=== PATIENT | female | born 1945 | race Caucasian/White ===

== ENCOUNTER 2018-01-31 02:23 | Outpatient (CLI) | payer OTHER, SELFPAY ==
[2018-01-31 15:01] LABS: Hemoglobin A1C 6.4 % (4.5-6.2)
== END 2018-01-31 02:43 ==
PROVIDERS: PCP Family Medicine; Visit Provider Family Medicine
DX: E11.9 Type 2 diabetes mellitus without complications (principal)
CPT/HCPCS: 36415; 83036

== ENCOUNTER 2018-02-28 09:55 | Outpatient (CLI) | payer OTHER, SELFPAY ==
--- NOTE | 2018-02-28 13:02 | DI.RAD_ITS ---
SYMPTOMS/DIAGNOSIS: LT KNEE PAIN, M25.562 LEFT KNEE: Three views were obtained. There is mild hypertrophic spurring of the bones of the knee. No other significant bony abnormality is seen.
== END 2018-02-28 10:15 ==
PROVIDERS: PCP Family Medicine; Visit Provider Family Medicine
DX: M25.562 Pain in left knee (principal); M76.892 Other specified enthesopathies of left lower limb, excluding foot
CPT/HCPCS: 73562

== ENCOUNTER 2018-05-22 10:35 | Outpatient (REF) | payer OTHER, SELFPAY | END 2018-05-22 10:55 | LOC: LBN 10:35 | PROVIDERS: PCP Family Medicine; Visit Provider Urology | DX: R30.9 Painful micturition, unspecified (principal) | CPT/HCPCS: 87077; 87086; 87186 ==

== ENCOUNTER 2018-07-08 09:01 | Outpatient (CLI) | payer OTHER, SELFPAY ==
[2018-07-08 11:15] LABS: Hemoglobin A1C 5.6 % (4.5-6.2)
[2018-07-09 10:26] LABS: Hepatitis C Ab w Rflx HCV PCR Negative (NEGAT)
== END 2018-07-08 09:21 ==
PROVIDERS: PCP Family Medicine; Visit Provider Family Medicine
DX: E11.9 Type 2 diabetes mellitus without complications (principal); Z11.59 Encounter for screening for other viral diseases
CPT/HCPCS: 36415; 86803; 83036

== ENCOUNTER 2018-07-11 10:10 | Outpatient (CLI) | payer OTHER, SELFPAY ==
--- NOTE | 2018-07-11 15:55 | DI.MAMMO_ITS ---
SYMPTOM/DIAGNOSIS: SCREENING, Z12.31 MAMMOGRAMS: Mammograms were interpreted according to the usual protocol including computer analysis with CAD system, tomosynthesis and C view imaging. Comparison with prior examinations. Breast density B. No suspicious masses or microcalcifications are seen. There is no definite evidence of malignancy. IMPRESSION: Negative mammogram. Routine screening is recommended. Category I. MQSA ASSESSMENT OF FINDINGS: Negative. Category 1. Patient will receive a letter notifying them of these results. BI-RADS category B. There are scattered areas of fibroglandular density.
== END 2018-07-11 10:30 ==
PROVIDERS: PCP Family Medicine; Visit Provider Family Medicine
DX: Z12.31 Encounter for screening mammogram for malignant neoplasm of breast (principal)
CPT/HCPCS: 77063; 77067

== ENCOUNTER 2018-07-22 10:54 | Outpatient (CLI) | payer OTHER, SELFPAY ==
[2018-07-22 13:17] LABS: ALT 43 U/L (12-78); AST 23 U/L (15-37); Alkaline Phosphatase 111 U/L (46-116); Anion Gap 9.1 mmol/L (3-11); BUN 19 mg/dL (7-18); Bilirubin, Total 0.3 mg/dL (0.2-1.0); CO2 28.9 mmol/L (21.0-32.0); CREATININE 0.95 mg/dL (0.55-1.02); Calcium 9.4 mg/dL (8.5-10.1); Chloride 103 mmol/L (98-107); Glucose 134 mg/dL (70-100); Potassium 4.4 mmol/L (3.5-5.1); Sodium 141 mmol/L (136-145); Total Protein 7.5 g/dL (6.4-8.2)
== END 2018-07-22 11:14 ==
PROVIDERS: PCP Family Medicine; Visit Provider Family Medicine
DX: E78.00 Pure hypercholesterolemia, unspecified (principal)
CPT/HCPCS: 36415; 80053

== ENCOUNTER 2020-02-03 04:26 | Outpatient (CLI) | payer OTHER, SELFPAY ==
[2020-02-03 11:46] LABS: Hemoglobin A1C 7.2 % (<5.7)
[2020-02-03 12:35] LABS: ALT 48 U/L (14-59); AST 18 U/L (15-37); Albumin 3.8 g/dL (3.4-5.0); Alkaline Phosphatase 108 U/L (46-116); BUN 17 mg/dL (7-18); Bilirubin, Total 0.3 mg/dL (0.2-1.0); CREATININE 0.72 mg/dL (0.55-1.02); Calcium 8.6 mg/dL (8.5-10.1); Calculated LDL 102 mg/dL (<100); Chloride 105 mmol/L (98-107); Cholesterol 187 mg/dL (<200); Glucose 170 mg/dL (74-106); HDL Cholesterol 52 mg/dL (40-60); Potassium 4.2 mmol/L (3.5-5.1); Sodium 140 mmol/L (136-145); Total Protein 7.1 g/dL (6.4-8.2); Triglyceride 166 mg/dL (<150)
== END 2020-02-03 04:46 ==
PROVIDERS: PCP Family Medicine; Visit Provider Family Medicine
DX: E78.00 Pure hypercholesterolemia, unspecified (principal); E11.9 Type 2 diabetes mellitus without complications
CPT/HCPCS: 36415; 80053; 80061; 83036

== ENCOUNTER 2020-02-16 00:40 | Outpatient (CLI) | payer OTHER, SELFPAY ==
--- NOTE | 2020-02-16 07:21 | DI.RAD_ITS ---
EXAM: XR HIP LT COMPLETE AP PELVIS CLINICAL HISTORY: left hip pain,m25.552. TECHNIQUE: 2D digital imaging was performed. COMPARISON: No exams were available for comparison FINDINGS: BONES: No acute fracture is present. No bony destructive lesion is seen. JOINTS: No dislocation present. There is mild joint space narrowing of the hips bilaterally. Degener ative changes are seen in the lower lumbar spine. SOFT TISSUE: Normal. IMPRESSION: Mild narrowing of the joint spaces of the hips bilaterally. DATA REPOSITORY: RADIATION DOSE DELIVERED:
== END 2020-02-16 01:00 ==
PROVIDERS: PCP Family Medicine; Visit Provider Family Medicine
DX: M25.552 Pain in left hip (principal)
CPT/HCPCS: 73502

== ENCOUNTER 2020-03-11 00:30 | Outpatient (CLI) | payer OTHER, SELFPAY ==
--- NOTE | 2020-03-11 06:30 | DI.DEXA_ITS ---
EXAM: XR DEXA BONE DENSITY W/WO LO CLINICAL HISTORY: osteoporosis,M81.0 TECHNIQUE: COMPARISON: No exams were available for comparison FINDINGS: Lateral Spine Image: Unremarkable. No compression deformities identified. Left hip: Total T-Score: 0.4 Total Z-Score: 2.2 T- and Z-scores: Within normal limits. Lumbar Spine: Total T-Score: 0.2 Total Z-Score: 2.6 T- and Z-scores: Within normal limits. IMPRESSION: No evidence of osteoporosis.
--- NOTE | 2020-03-11 06:30 | DI.MAMMO_ITS ---
EXAM: MG MAMMO SCREENING CLINICAL HISTORY: screening,Z12.39 TECHNIQUE: Bilateral full field digital CC and MLO mammographic images were obtained with 3D tomosyn thesis and utilizing computer aided detection (CAD). COMPARISON: Available for comparison. FINDINGS: Masses/Architectural Distortion: None seen. Microcalcifications: No suspicious pleomorphic-type are seen. Skin Thickening/Nipple Retraction: None. IMPRESSION: 1. No significant interval change with no specific features of malignancy noted. 2. Unless there is more urgent need, screening mammography is recommended, as per [employer] guidelines. BI-RADS Category 1 - Negative Breast Density - Category B - Scattered areas of fibroglandular density A negative radiographic report should not delay biopsy if a dominant or clinically suspicious mass is present. Up to ten percent of cancers are not identified on mammography. A negative report may reinforce clinical impression. Adenosis and dense breasts may obscure an underlying neoplasm. False positive reports average 6 to 10%. Patient will receive a letter notifying them of these results.
== END 2020-03-11 00:50 ==
PROVIDERS: PCP Family Medicine; Visit Provider Family Medicine
DX: Z12.31 Encounter for screening mammogram for malignant neoplasm of breast (principal); M81.0 Age-related osteoporosis without current pathological fracture
CPT/HCPCS: 77063; 77067; 77080

== ENCOUNTER 2020-06-22 13:27 | Outpatient (REF) | payer OTHER, SELFPAY ==
[2020-06-22 14:12] LABS: Bilirubin Negative (Negative); Blood Negative (Negative); Clarity Sl Cloudy (Clear); Glucose 100 mg/dL (Negative); Ketones Negative (Negative); Leukocyte Esterase Negative (Negative); Nitrite Negative (Negative); Specific Gravity 1.025 (1.005-1.025); Urobilinogen 0.2 EU/dL (Up TO 0.2); pH 5.5 (5-8)
== END 2020-06-22 13:28 | disposition home or self-care (01) ==
LOC: LBN 13:27
PROVIDERS: PCP Family Medicine; Visit Provider Nurse Practitioner Gerontology
DX: R82.998 Other abnormal findings in urine (principal)
CPT/HCPCS: 81003; 87086

== ENCOUNTER 2020-12-27 03:08 | Outpatient (CLI) | payer OTHER, SELFPAY ==
[2020-12-27 12:52] LABS: COMMENT (LAB VIEW ONLY) 83.13 mg/dL; Microalb ug/mg Crea 12.8 ug/mg Cr
== END 2020-12-27 03:09 | disposition home or self-care (01) ==
LOC: LBO 03:08
PROVIDERS: PCP Family Medicine; Visit Provider Family Medicine
DX: E11.9 Type 2 diabetes mellitus without complications (principal); M54.2 Cervicalgia
CPT/HCPCS: 36415; 82043; 82570; 83036

== ENCOUNTER 2021-02-15 15:58 | Outpatient (REF) | payer OTHER, SELFPAY ==
[2021-02-15 13:26] LABS: Bilirubin Negative (Negative); Blood Moderate (Negative); Clarity Clear (Clear); Glucose 500 mg/dL (Negative); Ketones Negative (Negative); Leukocyte Esterase Negative (Negative); Nitrite Negative (Negative); Specific Gravity >= 1.030 (1.005-1.025); Urobilinogen 0.2 EU/dL (Up TO 0.2); pH 6.5 (5-8)
[2021-02-15 13:40] LABS: Bacteria Rare HPF (Negative); Epithelial Cells Rare HPF (Negative); WBC 0-2 HPF (0-5)
[2021-02-15 13:41] LABS: C & S Indicated? No; Casts Negative LPF (Negative); Crystals Negative HPF (Negative); Mucus Negative (Negative)
== END 2021-02-15 15:59 | disposition home or self-care (01) ==
LOC: LBN 15:58
PROVIDERS: PCP Family Medicine; Visit Provider Nurse Practitioner Gerontology
DX: R31.9 Hematuria, unspecified (principal)
CPT/HCPCS: 81003; 81015

== ENCOUNTER 2021-03-07 01:06 | Outpatient (CLI) | payer OTHER, SELFPAY ==
--- NOTE | 2021-03-07 07:17 | DI.CT_ITS ---
Exam(s) CT ABDOMEN PELVIS WO/W EXAM: CT ABDOMEN PELVIS WO/W CLINICAL HISTORY: microhemATURIA,R31.9. TECHNIQUE: Imaging Protocol: Axial computed tomography images with coronal and sagittal reformatted images were created and reviewed CONTRAST MATERIAL: Intravenous: Omnipaque 100cc Oral: None COMPARISON: No exams were available for comparison FINDINGS: VISUALIZED LUNG BASES: There is some infiltrate in the lung bases and there is also a pleural based n odular density in the posterior basal segment of the right lower lobe which measures 7 x 5 millimeter s. Requires follow-up.. ABDOMEN: There is no ascites. LIVER: The liver is hypodense implying steatosis. There are no discrete focal hepatic lesions identi fied. GALLBLADDER/BILIARY: No obvious gallbladder pathology. CBD is not dilated. PANCREAS: No evidence of pancreatic mass nor dilatation of the pancreatic duct. SPLEEN: Spleen is not enlarged. No obvious intrasplenic lesions. Splenic and portal veins are paten t. ADRENALS: There are no significant adrenal masses. KIDNEYS:There is a 2.2 x 1.6 cm cyst in the inferior pole region of the right kidney. No solid renal masses. No calculi nor hydronephrosis.. There is a solitary nondilated ureter on each side without filling defects within the renal pelves and infundibulum I on either side. The right ureter is opac ified throughout its course. Left ureter appears unremarkable in the abdomen. The left ureter is op acified into the pelvis to just beyond the level of the iliac vessels but the lower few centimeters i ncluding the UVJ are not opacified. There is no abnormal calculus nor mass in the urinary bladder. There are no bladder diverticuli evid ent. No bladder wall trabeculation. ABDOMINAL AORTA: Abdominal aorta is not enlarged. LYMPH NODES:There is no retroperitoneal nor paraaortic adenopathy. ABDOMINAL WALL: No evidence of significant anterior abdominal wall nor inguinal hernia. GI: There is no evidence of bowel obstruction, free air, nor abscess. PELVIS: GI: No evidence of appendicitis.There is sigmoid diverticulosis. There is no obvious acute diverticu litis. LYMPH NODES: There is no intrapelvic nor inguinal adenopathy. REPRODUCTIVE: Uterus is surgically absent. There are no abnormal adnexal masses URINARY BLADDER: No calculi nor obvious masses evident OSSEOUS: No significant osseous lesions. Multilevel chronic degenerative disc space narrowing in the lumbar spine, with relative sparing of L5 -S1 which exhibits normal disc height IMPRESSION: 1. There is a solitary benign cyst in the lower pole region of the right kidney which measures 22 x 1 6 by 20 millimeters. There are no solid renal masses. No renal calculi nor hydronephrosis. There i s a solitary ureter on each side without dilatation. No obvious abnormality in the urinary bladder. 2. Sigmoid diverticulosis but no evidence of acute diverticulitis. No appendicitis. 3. Hepatic steatosis noted. 4. Mild infiltrate in lung bases. No pleural effusions. RADIATION DOSE DELIVERED: 2,766.31mGy.cm Total DLP DATA REPOSITORY: All CT scans at this facility are submitted to the National Radiology Data Registry (NRDR) Dose Index Registry (DIR) with the [employer] (A[employer]). RADIATION OPTIMIZATION: All CT scans at this facility use at least one of these dose optimization te chniques: automated exposure control; mA and/or kV adjustment per patient size (includes targeted exa ms where dose is matched to clinical indication); or iterative reconstruction.
[2021-03-07 12:22] LABS: CREATININE 0.7 mg/dL (0.55-1.02)
[2021-03-07] MEDS: Omnipaque 350 MG/ML 100 ML BTL IV (12:47)
== END 2021-03-07 01:26 ==
PROVIDERS: PCP Family Medicine; Visit Provider Nurse Practitioner Gerontology
DX: R31.9 Hematuria, unspecified (principal); N28.1 Cyst of kidney, acquired; K57.30 Diverticulosis of large intestine without perforation or abscess without bleeding; K76.0 Fatty (change of) liver, not elsewhere classified
CPT/HCPCS: 74178; 82565; J3490

== ENCOUNTER 2021-03-11 03:14 | Outpatient (CLI) | payer OTHER, SELFPAY ==
[2021-03-11 16:25] LABS: Source Nasal/Nares
[2021-03-11 20:54] LABS: COVID-19 PCR Negative (Negative)
== END 2021-03-11 03:15 | disposition home or self-care (01) ==
LOC: LBO 03:14
PROVIDERS: Urology; PCP Family Medicine; Visit Provider Nurse Practitioner Gerontology
DX: Z20.822 Contact with and (suspected) exposure to COVID-19 (principal); Z01.818 Encounter for other preprocedural examination
CPT/HCPCS: 87635

== ENCOUNTER 2021-03-14 08:19 | Day surgery (SDC) | payer OTHER, SELFPAY ==
--- NOTE | 2021-03-14 06:26 | W.ANESPRE ---
General Info Height: 5 ft 4 in Weight: 89.868 kg Body Mass Index (BMI): 34.0 Surgical Procedure: Operation Date: 03/14/21 10:40 Proposed Procedures Side Surgeon p Cystoscopy/Retrograde Left Santiago Vergara MD s Possible Transurethral Resection Bladder Tumor Santiago Vergara MD Meds Allergies and Home Medications Allergies Allergy/AdvReac Type Severity Reaction Status Date / Time ibuprofen AdvReac Mild Stomach Unverified 03/11/21 12:32 cramps Home Medication Medication Instructions Recorded glucosamine lamar 2KCl-chondroit 1 ea PO DAILY 11/30/12 multivitamin with minerals 1 ea PO DAILY 11/30/12 docusate sodium [Colace] 100 mg PO DAILY #1 11/16/14 triamcinolone acetonide 0.1 % 1 applic DT BID 02/20/19 dental paste triamcinolone acetonide 0.1 % 1 applic TP DAILY 02/20/19 topical cream simvastatin 10 mg tablet 10 mg PO pm #90 tab-cap 05/13/20 venlafaxine 75 mg capsule,extended 150 mg PO DAILY #90 tab-cap 05/13/20 release 24 hr quetiapine 100 mg tablet 100 mg PO BID #180 tab 06/25/20 [id number] PO 06/29/20 methenamine hippurate 1 gram tablet 1 g PO BID #180 tab-cap 11/11/20 clonazepam 1 mg tablet 1 mg PO BID #180 tab-cap 12/30/20 glipizide 5 mg tablet, extended 5 mg PO DAILY #90 tab 12/30/20 release 24 hr hydrocortisone 2.5 % topical cream 1 applic MA QD-BID PRN #30 gm 12/30/20 with perineal applicator mirabegron 50 mg tablet,extended 50 mg PO DAILY #90 tab 12/30/20 release 24 hr varicella-zoster glycoE [id number] 0.5 ml IM ONCE #1 ea 12/30/20 adj(PF) 50 mcg/0.5 mL IM susp, kit Current Visit Medications: Current Medications Generic Name Dose Route Start Last Admin Trade Name Freq PRN Reason Stop Dose Admin Ringer's Solution 1,000 mls @ 80 mls/hr 03/14/21 06:00 IV 04/10/21 23:59 INFUSION SYDNI Cefazolin Sodium/Dextrose 1 gm in 50 mls @ 100 mls/hr 03/14/21 06:00 Ancef Duplex IVPB 03/14/21 23:59 PREOP SYDNI IV Miscellaneous Supplies 1 each 03/14/21 06:00 Iv Access IV 04/10/21 23:59 DIRECTED SYDNI Sodium Chloride 0 ml 03/14/21 06:00 Normal Saline Flush 10 Ml Syr IV 04/10/21 23:59 PRN PRN Sodium Chloride 0 ml 03/14/21 06:00 Normal Saline 10 Ml Vial IJ 04/10/21 23:59 DIRECTED PRN Sterile Water 0 ml 03/14/21 06:00 Water,Injection,Sterile 10 Ml Vial IJ 04/10/21 23:59 DIRECTED PRN PFSH Active Problems Active Problems: Problem Status Onset Code Lung infiltrate on CT R91.8 Low back pain M54.50 Cervical pain (neck) M54.2 Ingrown nail L60.0 Hip pain M25.559 Left foot pain M79.672 Osteoporosis M81.0 Insomnia G47.00 OAB (overactive bladder) N32.81 Fatigue 06/26/12 R53.83 Hematuria R31.9 Right hip pain 03/27/17 M25.551 Lichen planus L43.9 Hypercholesterolemia E78.00 Generalized osteoarthrosis M15.9 Diverticulosis of colon without diverticulitis K57.30 Diabetes mellitus 12/23/12 E11.9 Anxiety F41.9 Actinic keratosis 11/13/17 L57.0 Medical History Medical History Actinic keratosis (11/13/17) Anxiety chronic benzodiazipine use 03/27/17 FLOR-7 SCORE=7 07/02/17 FLOR-7 SCORE=13 Diabetes mellitus (12/23/12) Diverticulosis of colon without diverticulitis Fatigue 06/26/12 Generalized osteoarthrosis low back pain; xray + DJD Hematuria unspeficified; asymptomatic; neg W/U Hypercholesterolemia Ingrowing toenail (04/14/14) Ingrown toenail 04/14/14 Lichen planus mouth Right hip pain (03/27/17) Urinary tract infectious disease recurrent Surgical History Surgical History Bladder Surgery (~1999) SLING H/O bladder repair surgery sling History of bladder repair surgery Hysterectomy, Laproscopic (~1983) partial; dysmenorrhea S/P laparoscopic hysterectomy 05/07/83 partial, dysmenorrhea Status post laparoscopic hysterectomy Tobacco Smoking/Tobacco Use Status: Former Tobacco Use Tobacco: How many years used: 30 Passive smoking exposure: Yes Quit Status: has quit before Second hand exposure: Yes Alcohol Alcohol Intake: current Alcohol intake frequency: holidays/special occasions only Alcohol type: wine and hard liquor Substance Use Substance use: Never Substance use type: does not use Vital Signs and Lab Results Lab Results Blood Type / Crossmatch: No Data to Display Complete Blood Count: No Data to Display Complete Metabolic Panel: Creatinine 0.7 mg/dL (0.55-1.02) 03/07/21 12:10 03/07/21 Estimated GFR/1.73 m2 >= 60.00 (mL/min/1.73m2) 03/07/21 12:10 03/07/21 Liver Function Panel: No Data to Display Coagulation Panel: No Data to Display Cardiac Panel: No Data to Display Arterial Blood Gas: No Data to Display Venous Blood Gas: No Data to Display Pancreas Panel: No Data to Display Thyroid Panel: No Data to Display Infectious Disease: Coronavirus (COVID-19)(PCR) Negative (Negative) 03/11/21 10:55 03/11/21 Coronavirus 2019 Source Nasal/Nares 03/11/21 10:55 03/11/21 Blood Cultures: No Data to Display Toxicology Panel: No Data to Display Anesthesia Assessment and Plan Anesthesia History Personal History: No History of Anesthesia Complications Family History: No Family History of Anesthesia Complications Exercise Tolerance Exercise Tolerance: Metabolic Equivalents>4 ASA Classification ASA Score: ASA 2 Emergency Case?: No Anesthesia Plan Resuscitation Status: Full Code Anesthesia Technique: MAC Anesthesia Airway Planned: Natural Airway Monitors Used: Standard Monitors Preoperative Comments:: 76 yo female for Sig PMHx: anxiety (clonazapam), low back pain, former smoker, occ EtOH, DM (glipizide).
[2021-03-14 09:21] VITALS: BP 157/65; PULSE 70; RESP 16; TEMP 37; O2SAT 96
[2021-03-14] MEDS: Lactated Ringers 1,000 ML 80 ML IV (09:45)
--- NOTE | 2021-03-14 10:37 | DSU.FORM ---
03/14/21 1035 Patient procedure postponed related to patient going to a [employer] party with 40 to 50 people. Per Anesthesia this is against our current guidelines for patients undergoing general anesthesia. Patient did not follow guidelines to quarantine after her Covid test.
== END 2021-03-14 08:20 | disposition home or self-care (01) ==
LOC: SUR 08:19
PROVIDERS: PCP Family Medicine; Visit Provider Urology
PROC: (CPT 74450; principal; 2021-03-14 10:30)
PROC: 0TBB8ZZ Excision of Bladder, Via Natural or Artificial Opening Endoscopic (ICD-10-PCS; 2021-03-14 10:30)
DX: Z53.9 Procedure and treatment not carried out, unspecified reason (principal)
CPT/HCPCS: J2405; J2704

== ENCOUNTER 2021-03-18 03:14 | Outpatient (CLI) | payer OTHER, SELFPAY ==
[2021-03-18 10:50] LABS: Source Nasal/Nares
[2021-03-18 14:23] LABS: COVID-19 PCR Negative (Negative)
== END 2021-03-18 03:15 | disposition home or self-care (01) ==
LOC: LBO 03:14
PROVIDERS: PCP Family Medicine; Visit Provider Urology
DX: Z20.822 Contact with and (suspected) exposure to COVID-19 (principal); Z01.818 Encounter for other preprocedural examination
CPT/HCPCS: 87635

== ENCOUNTER 2021-03-22 08:55 | Outpatient (CLI) | payer OTHER, SELFPAY ==
[2021-03-22 10:54] LABS: Source Nasal/Nares
[2021-03-22 17:36] LABS: COVID-19 PCR Negative (Negative)
== END 2021-03-22 08:56 | disposition home or self-care (01) ==
LOC: LBO 08:56
PROVIDERS: PCP Family Medicine; Visit Provider Urology
DX: Z20.822 Contact with and (suspected) exposure to COVID-19 (principal); Z01.818 Encounter for other preprocedural examination
CPT/HCPCS: 87635

== ENCOUNTER 2021-03-24 08:20 | Day surgery (SDC) | payer OTHER, SELFPAY ==
[2021-03-24 08:39] VITALS: BP 165/67; PULSE 71; RESP 16; TEMP 36.1; O2SAT 96
--- NOTE | 2021-03-24 08:52 | HPE_ITS ---
Date of service: 03/24/21 Time of Service: 08:58 Assessment and Plan Assessment and plan (1) Hematuria: Status: Acute Assessment and plan: We will perform cystoscopy with left retrograde pyelogram to complete her hematuria workup. If a bladder tumor is identified, we will be prepared to perform TURBT History of Present Illness History of Present Illness Chief Complaint: Hematuria Narrative: Tina is a 76-year-old female who has a history of hematuria. She first noticed brown d/c on her panty liner. UA found moderate blood and RBC 5-10. She has an extensive urology history which includes: recurrent UTIs, overactive bladder, bladder diverticuli and has a feeling of incomplete bladder emptying. She was evaluated with a CT urogram. She has a right renal cyst. No significant abnormalities were identified, but the left distal ureter was not opacified. She presents for cystoscopy with retrograde pyelogram to complete her hematuria workup. Review of Systems Narrative: Fatigue. No fevers or chills No vision change or dysphasia Hx Diabetes. No thyroid dysfunction No shortness of breath, cough or hemoptysis No chest pain or palpitations No nausea, vomiting, hepatitis, ulcers, jaundice No seizures, strokes or peripheral neuropathy No bleeding disorders or anemia Chronic joint and back pain. No gout [facility] Active Problem List Lung infiltrate on CT (Acute) Low back pain (Acute) Cervical pain (neck) (Acute) Ingrown nail (Acute) Hip pain (Acute) Left foot pain (Acute) Osteoporosis (Chronic) Insomnia (Acute) OAB (overactive bladder) (Acute) Fatigue (Acute 06/26/12) Hematuria (Acute) Right hip pain (Chronic 03/27/17) Lichen planus (Chronic) Hypercholesterolemia (Chronic) Generalized osteoarthrosis (Chronic) Diverticulosis of colon without diverticulitis (Chronic) Diabetes mellitus (Chronic 12/23/12) Anxiety (Chronic) Actinic keratosis (Chronic 11/13/17) Medical History Fatigue 06/26/12 Hematuria unspeficified; asymptomatic; neg W/U Ingrowing toenail (04/14/14) Ingrown toenail 04/14/14 Urinary tract infectious disease recurrent Surgical History Bladder Surgery (~1999) SLING H/O bladder repair surgery sling History of bladder repair surgery Hysterectomy, Laproscopic (~1983) partial; dysmenorrhea S/P laparoscopic hysterectomy 05/07/83 partial, dysmenorrhea Status post laparoscopic hysterectomy Family History (Updated 06/30/20 @ 08:47 by Teodora Gross) Mother , age 92 Dementia Father , age 78 Cancer Brother Asthma Brother ALS (amyotrophic lateral sclerosis) Brother No problems noted. Maternal Grandfather , age 50 Black lung disease Paternal Grandfather , age 65 Black lung disease Maternal Grandmother , age 80 No problems noted. Paternal Grandmother , age 84 No problems noted. Son No problems noted. Son No problems noted. Social History (Updated 06/30/20 @ 08:47 by Teodora Gross) Smoking/Tobacco Use Status: Former Tobacco Use tobacco type: cigarettes Quit Date: 05/07/97 Tobacco: How many years used: 30 Quit status: has quit before Second Hand Exposure: Yes Smoking risk assessment performed?: Yes Alcohol Intake: current Alcohol Intake frequency: holidays/special occasions only Alcohol type: wine and hard liquor Drug use: Never Substance use type: does not use Caregiver/Support person: No Household members: spouse Housing: house Communication Needs: None Do you need help understanding health information?: Rarely Pets and animals: No Sexually active: No Do you think of yourself as: straight/heterosexual Current gender identity: female What is your relationship status?: How often do you talk on the phone with friends or family?: three or more times per week How often do you get together with friends or relatives?: twice per week How often do you attend episcopal or holiness services?: 4 or more times per year Do you belong to any clubs or organized social groups?: yes Panel score (0-1 are the most socially isolated patients): 4 What type of physical activity do you participate in: aerobic and regular exercise Duration: 45-60 minutes/day Frequency: 3-4 times per week Lorraine/Zoroastrian: Zoroastrian Special lorraine needs: No Seatbelt use: always Helmet use: Yes Helmet use: always Drive intox or ride w/intox cdl a driver: No Do you feel safe at home: Yes Do you feel safe in your relationship?: Yes Meds Allergies and Home Medications Allergies Allergy/AdvReac Type Severity Reaction Status Date / Time ibuprofen AdvReac Mild Stomach Unverified 03/24/21 08:45 cramps Home Medications Medication Instructions Recorded Confirmed Type glucosamine lamar 2KCl-chondroit 1 ea PO DAILY 11/30/12 03/24/21 History multivitamin with minerals 1 ea PO DAILY 11/30/12 03/24/21 History docusate sodium [Colace] 100 mg PO DAILY #1 11/16/14 03/24/21 History triamcinolone acetonide 0.1 % 1 applic TP DAILY 02/20/19 03/24/21 History topical cream simvastatin 10 mg tablet 10 mg PO pm #90 tab-cap 05/13/20 03/24/21 Rx venlafaxine 75 mg capsule,extended 150 mg PO DAILY #90 tab-cap 05/13/20 03/24/21 Rx release 24 hr quetiapine 100 mg tablet 100 mg PO BID #180 tab 06/25/20 03/24/21 Rx methenamine hippurate 1 gram tablet 1 g PO BID #180 tab-cap 11/11/20 03/22/21 Rx clonazepam 1 mg tablet 1 mg PO BID #180 tab-cap 12/30/20 03/24/21 Rx glipizide 5 mg tablet, extended 5 mg PO DAILY #90 tab 12/30/20 03/24/21 Rx release 24 hr hydrocortisone 2.5 % topical cream 1 applic MD QD-BID PRN #30 gm 12/30/20 03/24/21 Rx with perineal applicator mirabegron 50 mg tablet,extended 50 mg PO DAILY #90 tab 12/30/20 03/24/21 Rx release 24 hr Exam Const General: cooperative and anxious Neck Neck: supple Resp Effort & Inspection: normal respiratory effort Auscultation: clear to auscultation bilaterally Cardio Rate: regular rate Rhythm: regular rhythm GI Palpation: soft and no masses Neuro General: patient alert, patient awake and patient oriented x3 Results Last Vital Signs Temp 36.1 C L 03/24/21 08:39 Pulse 71 03/24/21 08:39 Resp 16 03/24/21 08:39 BP 165/67 H 03/24/21 08:39 Pulse Ox 96 03/24/21 08:39
--- NOTE | 2021-03-24 09:00 | W.ANESPRE ---
General Info Date of Service Date Performed: 03/24/21 Height: 5 ft 4 in Weight: 92.3 kg Body Mass Index (BMI): 34.9 Surgical Procedure: Operation Date: 03/24/21 09:55 Proposed Procedures Side Surgeon p Cysto (L) Retrograde possible TURBT Not Applicable Santiago Vergara MD s Cystoscopy/Retrograde Left Santiago Vergara MD Meds Allergies and Home Medications Allergies Allergy/AdvReac Type Severity Reaction Status Date / Time ibuprofen AdvReac Mild Stomach Unverified 03/24/21 08:45 cramps Home Medication Medication Instructions Recorded glucosamine lamar 2KCl-chondroit 1 ea PO DAILY 11/30/12 multivitamin with minerals 1 ea PO DAILY 11/30/12 docusate sodium [Colace] 100 mg PO DAILY #1 11/16/14 triamcinolone acetonide 0.1 % 1 applic TP DAILY 02/20/19 topical cream simvastatin 10 mg tablet 10 mg PO pm #90 tab-cap 05/13/20 venlafaxine 75 mg capsule,extended 150 mg PO DAILY #90 tab-cap 05/13/20 release 24 hr quetiapine 100 mg tablet 100 mg PO BID #180 tab 06/25/20 methenamine hippurate 1 gram tablet 1 g PO BID #180 tab-cap 11/11/20 clonazepam 1 mg tablet 1 mg PO BID #180 tab-cap 12/30/20 glipizide 5 mg tablet, extended 5 mg PO DAILY #90 tab 12/30/20 release 24 hr hydrocortisone 2.5 % topical cream 1 applic ME QD-BID PRN #30 gm 12/30/20 with perineal applicator mirabegron 50 mg tablet,extended 50 mg PO DAILY #90 tab 12/30/20 release 24 hr Current Visit Medications: Current Medications Generic Name Dose Route Start Last Admin Trade Name Freq PRN Reason Stop Dose Admin Ringer's Solution 1,000 mls @ 80 mls/hr 03/21/21 06:00 IV 04/17/21 23:59 INFUSION SYDNI Cefazolin Sodium/Dextrose 1 gm in 50 mls @ 100 mls/hr 03/24/21 06:00 Ancef Duplex IVPB 03/24/21 16:00 PREOP SYDNI IV Miscellaneous Supplies 1 each 03/21/21 06:00 Iv Access IV 04/17/21 23:59 DIRECTED SYDNI Sodium Chloride 0 ml 03/21/21 06:00 Normal Saline Flush 10 Ml Syr IV 04/17/21 23:59 PRN PRN Sodium Chloride 0 ml 03/21/21 06:00 Normal Saline 10 Ml Vial IJ 04/17/21 23:59 DIRECTED PRN Sterile Water 0 ml 03/21/21 06:00 Water,Injection,Sterile 10 Ml Vial IJ 04/17/21 23:59 DIRECTED PRN PFSH Active Problems Active Problems: Problem Status Onset Code Lung infiltrate on CT R91.8 Low back pain M54.50 Cervical pain (neck) M54.2 Ingrown nail L60.0 Hip pain M25.559 Left foot pain M79.672 Osteoporosis M81.0 Insomnia G47.00 OAB (overactive bladder) N32.81 Fatigue 06/26/12 R53.83 Hematuria R31.9 Right hip pain 03/27/17 M25.551 Lichen planus L43.9 Hypercholesterolemia E78.00 Generalized osteoarthrosis M15.9 Diverticulosis of colon without diverticulitis K57.30 Diabetes mellitus 12/23/12 E11.9 Anxiety F41.9 Actinic keratosis 11/13/17 L57.0 Medical History Active Problem List Lung infiltrate on CT (Acute) Low back pain (Acute) Cervical pain (neck) (Acute) Ingrown nail (Acute) Hip pain (Acute) Left foot pain (Acute) Osteoporosis (Chronic) Insomnia (Acute) OAB (overactive bladder) (Acute) Fatigue (Acute 06/26/12) Hematuria (Acute) Right hip pain (Chronic 03/27/17) Lichen planus (Chronic) Hypercholesterolemia (Chronic) Generalized osteoarthrosis (Chronic) Diverticulosis of colon without diverticulitis (Chronic) Diabetes mellitus (Chronic 12/23/12) Anxiety (Chronic) Actinic keratosis (Chronic 11/13/17) Medical History Fatigue 06/26/12 Hematuria unspeficified; asymptomatic; neg W/U Ingrowing toenail (04/14/14) Ingrown toenail 04/14/14 Urinary tract infectious disease recurrent Surgical History Surgical History SLING H/O bladder repair surgery sling History of bladder repair surgery Hysterectomy, Laproscopic (~1983) partial; dysmenorrhea S/P laparoscopic hysterectomy 05/07/83 partial, dysmenorrhea Status post laparoscopic hysterectomy Tobacco Smoking/Tobacco Use Status: Former Tobacco Use Tobacco: How many years used: 30 Passive smoking exposure: Yes Quit Status: has quit before Second hand exposure: Yes Alcohol Alcohol Intake: current Alcohol intake frequency: holidays/special occasions only Alcohol type: wine and hard liquor Substance Use Substance use: Never Substance use type: does not use Vital Signs and Lab Results Vital Signs Most Recent Vital Signs in EMR: Most Recent Vital Signs Temp Pulse Resp BP Pulse Ox 36.1 C L 71 16 165/67 H 96 03/24/21 08:39 03/24/21 08:39 03/24/21 08:39 03/24/21 08:39 03/24/21 08:39 Lab Results Blood Type / Crossmatch: No Data to Display Complete Blood Count: No Data to Display Complete Metabolic Panel: Creatinine 0.7 mg/dL (0.55-1.02) 03/07/21 12:10 03/07/21 Estimated GFR/1.73 m2 >= 60.00 (mL/min/1.73m2) 03/07/21 12:10 03/07/21 Liver Function Panel: No Data to Display Coagulation Panel: No Data to Display Cardiac Panel: No Data to Display Arterial Blood Gas: No Data to Display Venous Blood Gas: No Data to Display Pancreas Panel: No Data to Display Thyroid Panel: No Data to Display Infectious Disease: Coronavirus (COVID-19)(PCR) Negative (Negative) 03/22/21 08:41 03/22/21 Coronavirus 2019 Source Nasal/Nares 03/22/21 08:41 03/22/21 Blood Cultures: No Data to Display Toxicology Panel: No Data to Display Anesthesia Assessment and Plan Anesthesia History Personal History: No History of Anesthesia Complications Family History: No Family History of Anesthesia Complications Exercise Tolerance Exercise Tolerance: Metabolic Equivalents>4 Pertinent Negatives Pertinent Negatives: No Symptoms of GERD Cardiac & Pulmonary Exam Cardiac Exam: Normal S1/S2 Heart Sounds Pulmonary Exam: Clear Bilateral Breath Sounds Implantable Cardiac Device Does patient have a Pacemaker or an ICD?: No Airway Exam Known Difficult Airway: No Mallampati Class: 2 Mouth Opening: Normal (> 3cm) Thyromental Distance: Greater than 3 cm Neck Range of Motion: Full ROM Neck Circumference: Normal Teeth Condition: Normal Dentition ASA Classification ASA Score: ASA 2 Emergency Case?: No NPO Status NPO Status: NPO Clears >2 hours, Solids >8 hours Anesthesia Plan Resuscitation Status: Full Code Anesthesia Technique: General Anesthesia Airway Planned: Natural Airway Monitors Used: Standard Monitors
[2021-03-24 09:03] VITALS: BMI 34.9
[2021-03-24] MEDS: Lactated Ringers 1,000 ML 80 ML IV (09:11)
[2021-03-24] MEDS: ceFAZolin 1 GM/50 ML BAG IVPB (09:30)
[2021-03-24] MEDS: Lidocaine 2% Jelly 6 ML SYR (09:42)
[2021-03-24] MEDS: Omnipaque 300 MG/ML 50 ML BTL (09:44)
--- NOTE | 2021-03-24 09:49 | W.PM.OP ---
Date of service: 03/24/21 Time of Service: 09:49 Operative Note Operative Note DATE OF PROCEDURE: 03/24/21 PRE-OP DIAGNOSIS: Hematuria POST-OP DIAGNOSIS: other vaginal wall cyst PROCEDURE: cystoscopy with left retrograde pyelogram SURGEON: Santiago Vergara ANESTHESIA TYPE: Local By Surgeon and General:No Airway Refer to Anesthesia Record ESTIMATED BLOOD LOSS: 0 PATHOLOGY: none sent COMPLICATIONS: None Patient was transported to: same day Patient's condition: stable Implants: none Indications: This is a 76-year-old woman who has a history of microscopic hematuria. She also has a finding of brownish discharge on her pad. She has had a CT urogram that showed a right renal cyst but no additional uropathology. The distal left ureter was not well visualized on the CT urogram, so she presents for cystoscopy with a left retrograde pyelogram. Findings: A bladder and the left ureter Vaginal wall cyst just to the left of the urethra Procedure Description: Patient was brought to the operating room on 03/24/2021. And a dose of preoperative antibiotics. After successful induction of general anesthesia without intubation, she was placed in the dorsal lithotomy position. Genitalia was prepped and draped. 2% Xylocaine jelly was instilled into the urethra to act as a local anesthetic. A 22 Latvian rigid cystoscope was passed through the urethra into the bladder. The bladder was inspected with a 30 degree lens. The left ureteral orifice was visualized and was cannulated with a 5 Latvian access catheter. Retrograde film was obtained by injecting Omnipaque through the access catheter under fluoroscopic guidance. The left ureter and collecting system appeared normal with no filling defects. The left side drained promptly on a 5-minute drainage film. The remainder the bladder was then inspected using both a 30 and a 70 degree lens. No papillary or nodular lesions were seen within the bladder. The scope was then removed and a pelvic examination was performed. A vaginal wall cyst was identified just to the left of the urethra on the anterior vaginal wall. Palpation of this cyst did not express any fluid. The patient tolerated the procedure well. She has no significant uropathology, but I expect that the brownish drainage that she has noted is from the vaginal wall cyst. We can discuss an excision procedure at a later date.
--- NOTE | 2021-03-24 09:50 | W.PM.DSUDISC ---
Discharge Plan Disposition Patient Disposition: HOME Condition: Stable Discharge Details Reason For Visit: cystoscopy Attending Provider: Santiago Vergara Primary Care Provider: Sarah Weldon Home Meds and New Rx's Prescriptions: New nitrofurantoin macrocrystal 100 mg capsule 100 mg PO BID 3 Days Qty: 6 RF: 0 No Action triamcinolone acetonide 0.1 % cream 1 applic TP DAILY RF: 0 hydrocortisone [Procto-Med HC] 2.5 % cream with perineal applicator 1 applic DE QD-BID PRN (Reason: itching) Qty: 30 RF: 2 glipizide 5 mg tablet extended release 24hr 5 mg PO DAILY Qty: 90 RF: 5 clonazepam 1 mg tablet 1 mg PO BID Qty: 180 RF: 2 Myrbetriq 50 mg tablet extended release 24 hr 50 mg PO DAILY Qty: 90 RF: 3 simvastatin 10 mg tablet 10 mg PO pm Qty: 90 RF: 3 venlafaxine 75 mg capsule,extended release 24hr 150 mg PO DAILY Qty: 90 RF: 11 multivitamin with minerals 1 EACH tablet 1 ea PO DAILY RF: 0 glucosamine lamar 2KCl-chondroit 1 EACH tablet 1 ea PO DAILY RF: 0 docusate sodium [Colace] 100 MG capsule 100 mg PO DAILY Qty: 1 RF: 0 quetiapine 100 mg tablet 100 mg PO BID Qty: 180 RF: 3 methenamine hippurate 1 gram tablet 1 g PO BID Qty: 180 RF: 3 Discharge Instructions Additional Instructions: followup 2 to 3 weeks to discuss surgical findings Activity:: Activity as Tolerated Shower/Bathe:: 24 hours Diet:: As Tolerated Discharge Orders Discharge Orders: Discharge Order (Routine); Ordered 03/24/21 Ordered By: Santiago Vergara DS: Diagnosis Discharge Diagnosis (1) Hematuria: Status: Acute
[2021-03-24 09:55] VITALS: BP 120/66; PULSE 62; RESP 16; TEMP 36.1; O2SAT 94
--- NOTE | 2021-03-24 10:10 | DI.RAD_ITS ---
Exam(s) XR RETROGRADE IN OR EXAM: XR RETROGRADE IN OR CLINICAL HISTORY: Hematuria. TECHNIQUE: 2D digital imaging was performed. COMPARISON: No exams were available for comparison FINDINGS: Fluoroscopy was provided during urologic procedure See procedure report for details. Total fluoroscopy time 15.5 seconds Total cumulative dose 6.10mGy IMPRESSION: DATA REPOSITORY: RADIATION DOSE DELIVERED:
--- NOTE | 2021-03-24 10:18 | W.ANESPOSTOP ---
Postoperative Evaluation Date, Time and Location Date Performed: 03/24/21 Time Performed: 10:18 Patient Location: Day [facility] Unit Vital Signs Most Recent Imported Vital Signs: Most Recent Vital Signs Temp Pulse Resp BP Pulse Ox 36.1 C L 62 16 120/66 94 03/24/21 09:55 03/24/21 09:55 03/24/21 09:55 03/24/21 09:55 03/24/21 09:55 Pain Score Most Recent Pain Score: Most Recent Pain Score Pain Level 0 03/24/21 09:55 Assessment Mental Status: Awake (Alert & Oriented to Patient Baseline) Airway and Respiratory Function: Patent airway with normal (patient baseline) respiratory exam Cardiovascular Function: Hemodynamically Stable Hydration Status: Adequately Hydrated Nausea & Vomiting: No Nausea or Vomiting Pain: Pt. Denies Any Pain Peripheral Nerve Block: Patient did not receive a nerve block
[2021-03-24 10:30] VITALS: BP 135/57; PULSE 69; RESP 16; TEMP 36.1; O2SAT 95
== END 2021-03-24 11:02 | disposition home or self-care (01) ==
PROVIDERS: PCP Family Medicine; Visit Provider Urology
PROC: 0TBB8ZZ Excision of Bladder, Via Natural or Artificial Opening Endoscopic (ICD-10-PCS; CPT 52005; principal; 2021-03-24 09:45)
DX: R31.9 Hematuria, unspecified (principal); N89.8 Other specified noninflammatory disorders of vagina; N32.81 Overactive bladder; Z87.440 Personal history of urinary (tract) infections; E11.9 Type 2 diabetes mellitus without complications
CPT/HCPCS: 52005; 74420; J0690; J2405; Q9967

== ENCOUNTER 2021-03-28 14:42 | Outpatient (REF) | payer OTHER, SELFPAY ==
[2021-03-28 12:50] LABS: Bilirubin Negative (Negative); Blood Trace-intact (Negative); Clarity Clear (Clear); Glucose Negative (Negative); Ketones Negative (Negative); Leukocyte Esterase Negative (Negative); Nitrite Negative (Negative); Urobilinogen 0.2 EU/dL (Up TO 0.2)
[2021-03-28 13:01] LABS: Bacteria Negative HPF (Negative); C & S Indicated? C&S Done As Ordered; Casts Negative LPF (Negative); Crystals Negative HPF (Negative); Epithelial Cells Few HPF (Negative); Mucus Negative (Negative); RBC 0-2 HPF (0-2); WBC 0-2 HPF (0-5)
== END 2021-03-28 14:43 | disposition home or self-care (01) ==
LOC: LBN 14:42
PROVIDERS: PCP Family Medicine; Visit Provider Urology
DX: R35.0 Frequency of micturition (principal)
CPT/HCPCS: 81003; 81015; 87086

== ENCOUNTER 2021-05-13 15:08 | Outpatient (REF) | payer OTHER, SELFPAY | END 2021-05-13 15:09 | disposition home or self-care (01) | LOC: LBN 15:08 | PROVIDERS: PCP Family Medicine; Visit Provider Urology | DX: R35.0 Frequency of micturition (principal) | CPT/HCPCS: 87077; 87086; 87186 ==

== ENCOUNTER 2021-05-24 19:49 | Outpatient (REF) | payer OTHER, SELFPAY ==
[2021-05-24 17:05] LABS: Bilirubin Negative (Negative); Blood Trace-intact (Negative); Clarity Clear (Clear); Glucose Negative (Negative); Ketones Negative (Negative); Leukocyte Esterase Trace (Negative); Nitrite Negative (Negative); Specific Gravity 1.015 (1.005-1.025); Urobilinogen 0.2 EU/dL (Up TO 0.2); pH 5.5 (5-8)
[2021-05-24 17:19] LABS: Epithelial Cells Few HPF (Negative)
[2021-05-24 17:23] LABS: Bacteria Negative HPF (Negative)
[2021-05-24 17:24] LABS: C & S Indicated? No
== END 2021-05-24 19:50 | disposition home or self-care (01) ==
LOC: LBN 19:49
PROVIDERS: PCP Family Medicine; Visit Provider Urology
DX: N39.0 Urinary tract infection, site not specified (principal)
CPT/HCPCS: 81003; 81015; 87086

== ENCOUNTER 2021-12-15 16:01 | Outpatient (REF) | payer OTHER, SELFPAY ==
[2021-12-15 15:43] LABS: Bilirubin Negative (Negative); Blood Moderate (Negative); Clarity Cloudy (Clear); Glucose Negative (Negative); Ketones Negative (Negative); Leukocyte Esterase Moderate (Negative); Nitrite Positive (Negative); Urobilinogen 0.2 EU/dL (Up TO 0.2); pH 5.5 (5-8)
[2021-12-15 16:01] LABS: Bacteria Many HPF (Negative); C & S Indicated? C&S Done As Ordered; Casts Negative LPF (Negative); Crystals Negative HPF (Negative); Epithelial Cells Few HPF (Negative); Mucus Negative (Negative); WBC >50 HPF (0-5)
== END 2021-12-15 16:02 | disposition home or self-care (01) ==
LOC: LBN 16:01
PROVIDERS: PCP Family Medicine; Visit Provider Nurse Practitioner Gerontology
DX: R30.0 Dysuria (principal); R31.9 Hematuria, unspecified
CPT/HCPCS: 87077; 81003; 81015; 87086; 87186

== ENCOUNTER 2022-02-15 02:22 | Outpatient (CLI) | payer OTHER, SELFPAY ==
[2022-02-15 09:49] LABS: Hemoglobin A1C 7.6 % (<5.7)
[2022-02-15 09:58] LABS: ALT 82 U/L (14-59); AST 30 U/L (15-37); Albumin 3.7 g/dL (3.4-5.0); Alkaline Phosphatase 131 U/L (46-116); BUN 20 mg/dL (7-18); Bilirubin, Total 0.3 mg/dL (0.2-1.0); CREATININE 0.7 mg/dL (0.55-1.02); Calcium 8.7 mg/dL (8.5-10.1); Calculated LDL 83 mg/dL (<100); Chloride 105 mmol/L (98-107); Cholesterol 171 mg/dL (<200); Estimated GFR 88.47 (mL/min/1.73m2); Glucose 169 mg/dL (74-106); HDL Cholesterol 48 mg/dL (40-60); Potassium 4.1 mmol/L (3.5-5.1); Sodium 142 mmol/L (136-145); TSH (W/Ref FT4) 3.94 uIU/mL (0.36-3.74); Total Protein 7.2 g/dL (6.4-8.2); Triglyceride 204 mg/dL (<150)
[2022-02-15 10:20] LABS: FREE T4 0.78 ng/dL (0.76-1.46)
== END 2022-02-15 02:23 | disposition home or self-care (01) ==
PROVIDERS: PCP Family Medicine; Visit Provider Family Medicine
DX: E11.9 Type 2 diabetes mellitus without complications (principal); E78.00 Pure hypercholesterolemia, unspecified; F41.8 Other specified anxiety disorders; N32.81 Overactive bladder
CPT/HCPCS: 36415; 80053; 80061; 83036; 84439; 84443

== ENCOUNTER 2022-04-14 16:09 | Outpatient (REF) | payer OTHER, SELFPAY ==
[2022-04-14 17:25] LABS: Bilirubin Negative (Negative); Blood Small (Negative); Clarity Cloudy (Clear); Glucose >=1000 mg/dL (Negative); Ketones Negative (Negative); Leukocyte Esterase Small (Negative); Nitrite Positive (Negative); Specific Gravity >= 1.030 (1.005-1.025); Urobilinogen 0.2 EU/dL (Up TO 0.2)
[2022-04-14 17:29] LABS: Epithelial Cells Few HPF (Negative); WBC >50 HPF (0-5)
[2022-04-14 17:30] LABS: Bacteria Many HPF (Negative); C & S Indicated? C&S Done As Ordered; Casts Negative LPF (Negative); Crystals Negative HPF (Negative); Mucus Trace (Negative)
== END 2022-04-14 16:10 | disposition home or self-care (01) ==
LOC: LBN 16:09
PROVIDERS: Urology; PCP Family Medicine; Visit Provider Family Medicine
DX: R30.0 Dysuria (principal)
CPT/HCPCS: 87077; 81003; 81015; 87086; 87186

== ENCOUNTER 2022-04-27 16:35 | Outpatient (REF) | payer OTHER, SELFPAY ==
[2022-04-27 16:33] LABS: COMMENT (LAB VIEW ONLY) 130.27 mg/dL; Microalb ug/mg Crea 35.8 ug/mg Cr
== END 2022-04-27 16:36 | disposition home or self-care (01) ==
LOC: LBN 16:35
PROVIDERS: PCP Family Medicine; Visit Provider Family Medicine
DX: E11.9 Type 2 diabetes mellitus without complications (principal)
CPT/HCPCS: 82043; 82570

== ENCOUNTER 2022-05-09 12:55 | Outpatient (CLI) | payer OTHER, SELFPAY ==
--- NOTE | 2022-05-09 12:45 | RT.EKG_ITS ---
APPROVED REPORT Exam: Resting ECG Reason for Exam: Pre-op Screening Patient Location: O HR:84 bpm ECG Measurements Heart Rate 84 AXIS [place] 177 P 88 QRSd 89 QRS 74 QT 376 T 29 QTc 445 Conclusion Sinus rhythm...normal P axis, V-rate 50- 99 Baseline wander in lead(s) II,III,aVF Normal Electrocardiogram
== END 2022-05-09 12:56 | disposition home or self-care (01) ==
LOC: DI.CM 12:56
PROVIDERS: PCP Family Medicine; Visit Provider Family Medicine
DX: Z01.818 Encounter for other preprocedural examination (principal)
CPT/HCPCS: 93010

== ENCOUNTER 2022-08-28 15:52 | Outpatient (REF) | payer OTHER, SELFPAY ==
[2022-08-28 17:48] LABS: Bilirubin Negative (Negative); Blood Large (Negative); Clarity Cloudy (Clear); Glucose 500 mg/dL (Negative); Ketones Trace mg/dL (Negative); Leukocyte Esterase Small (Negative); Nitrite Positive (Negative); Specific Gravity >= 1.030 (1.005-1.025); pH 5.5 (5-8)
[2022-08-28 18:03] LABS: Bacteria Many HPF (Negative); Epithelial Cells Few HPF (Negative)
[2022-08-28 18:04] LABS: C & S Indicated? C&S Done As Ordered; Casts Negative LPF (Negative); Crystals Negative HPF (Negative); Mucus Moderate (Negative)
== END 2022-08-28 15:53 | disposition home or self-care (01) ==
LOC: LBN 15:52
PROVIDERS: PCP Family Medicine; Visit Provider Urology
DX: R30.0 Dysuria (principal)
CPT/HCPCS: 87077; 81003; 81015; 87086; 87186

== ENCOUNTER 2022-09-08 01:58 | Outpatient (CLI) | payer OTHER, SELFPAY ==
[2022-09-08 11:59] LABS: Hemoglobin A1C 10.6 % (<5.7)
[2022-09-08 12:17] LABS: ALT 54 U/L (14-59); AST 24 U/L (15-37); Albumin 3.5 g/dL (3.4-5.0); Alkaline Phosphatase 171 U/L (46-116); Anion Gap 8.4 mmol/L (3-11); BUN 12 mg/dL (7-18); Bilirubin, Total 0.4 mg/dL (0.2-1.0); CO2 27.6 mmol/L (21.0-32.0); CREATININE 0.8 mg/dL (0.55-1.02); Calcium 8.8 mg/dL (8.5-10.1); Calculated LDL 65 mg/dL (<100); Chloride 104 mmol/L (98-107); Cholesterol 135 mg/dL (<200); Estimated GFR 75.37 (mL/min/1.73m2); Glucose 317 mg/dL (74-106); HDL Cholesterol 47 mg/dL (40-60); Potassium 3.4 mmol/L (3.5-5.1); Sodium 140 mmol/L (136-145); Total Protein 7.5 g/dL (6.4-8.2); Triglyceride 118 mg/dL (<150)
== END 2022-09-08 01:59 | disposition home or self-care (01) ==
LOC: LBO 02:00
PROVIDERS: PCP Family Medicine; Visit Provider Family Medicine
DX: Z00.00 Encounter for general adult medical examination without abnormal findings (principal); E11.9 Type 2 diabetes mellitus without complications; E78.5 Hyperlipidemia, unspecified
CPT/HCPCS: 36415; 80053; 80061; 83036

== ENCOUNTER 2022-09-13 11:35 | Outpatient (REF) | payer OTHER, SELFPAY ==
[2022-09-13 12:23] LABS: Bilirubin Negative (Negative); Blood Negative (Negative); Clarity Cloudy (Clear); Glucose >=1000 mg/dL (Negative); Ketones Negative (Negative); Leukocyte Esterase Negative (Negative); Nitrite Negative (Negative); Specific Gravity 1.025 (1.005-1.025); Urobilinogen 0.2 mg/dL (Up to 0.2); pH 5.5 (5-8)
== END 2022-09-13 11:36 | disposition home or self-care (01) ==
LOC: LBN 11:35
PROVIDERS: PCP Family Medicine; Visit Provider Nurse Practitioner Gerontology
DX: N39.0 Urinary tract infection, site not specified (principal)
CPT/HCPCS: 81003; 87086

== ENCOUNTER 2022-12-14 02:41 | Outpatient (CLI) | payer OTHER, SELFPAY ==
[2022-12-14 11:50] LABS: Hemoglobin A1C 11.4 % (<5.7)
== END 2022-12-14 02:42 | disposition home or self-care (01) ==
LOC: LBO 02:41
PROVIDERS: PCP Family Medicine; Visit Provider Family Medicine
DX: E11.9 Type 2 diabetes mellitus without complications (principal)
CPT/HCPCS: 36415; 83036

== ENCOUNTER 2022-12-15 08:56 | Day surgery (SDC) | payer OTHER, SELFPAY ==
--- NOTE | 2022-12-15 06:40 | W.ANESPRE ---
General Info Date of Service Date Performed: 12/15/22 Height: 5 ft 4 in Weight: 83.574 kg Body Mass Index (BMI): 31.6 Surgical Procedure: Operation Date: 12/15/22 11:40 Proposed Procedure Side Surgeon p Cataract Extraction with IOL Implant Left Alexandre Cervantes MD Meds Allergies and Home Medications Allergies Allergy/AdvReac Type Severity Reaction Status Date / Time ibuprofen AdvReac Mild Stomach Unverified 12/15/22 09:04 cramps Home Medication Medication Instructions Recorded multivitamin with minerals 1 ea PO DAILY 11/30/12 calcium polycarbophil 625 mg 1,250 mg PO BID 07/25/21 tablet (FiberCon) fxbpbnb-vasllwahx-aftyqq-zinc 1 tab PO DAILY 07/25/21 tablet docusate sodium 250 mg capsule 250 mg PO DAILY 07/25/21 loperamide 2 mg capsule 2 mg PO Q6H PRN 07/25/21 triamcinolone acetonide 0.1 % 1 applic topical DAILY PRN 07/25/21 topical cream nystatin 100,000 unit/gram topical 1 applic topical BID #60 grams 10/04/21 powder methenamine hippurate 1 gram tablet 1 g PO BID #180 tab-caps 01/10/22 hydrocortisone 2.5 % topical cream 1 applic MI QD-BID PRN itching #30 03/24/22 with perineal applicator grams (Procto-Med HC) melatonin 5 mg capsule 5 mg PO HS 04/11/22 mirabegron 50 mg tablet,extended 50 mg PO DAILY #90 tabs 04/18/22 release 24 hr (Myrbetriq) venlafaxine 75 mg capsule,extended 150 mg PO DAILY #60 tab-caps 05/02/22 release 24 hr quetiapine 100 mg tablet 100 mg PO BID #180 tabs 06/14/22 simvastatin 10 mg tablet 10 mg PO pm #90 tab-caps 06/23/22 clonazepam 1 mg tablet 1 mg PO BID #180 tab-caps 08/29/22 pen needle, diabetic 31 gauge x #90 ea 10/31/22 3/16 (BD Ultra-Fine Mini Pen Needle) semaglutide 0.25 mg or 0.5 mg (2 0.5 mg (0.736 mL) subcut QWEEK #9 10/31/22 mg/3 mL) subcutaneous pen injector mL (Ozempic) fluconazole 100 mg tablet 100 mg PO DIRECTED #2 tabs 11/06/22 (Diflucan) polyethylene glycol 3350 17 17 g PO DAILY 12/04/22 gram/dose oral powder (Miralax) losartan 50 mg tablet 50 mg PO HS 12/13/22 glipizide 10 mg tablet, extended 10 mg PO BID #180 tabs 12/14/22 release 24 hr metformin 500 mg tablet 1,000 mg PO BID #360 tabs 12/14/22 Current Visit Medications: Current Medications Generic Name Dose Route Start Last Admin Trade Name Freq PRN Reason Stop Dose Admin Acetaminophen 1,000 mg 12/15/22 06:00 Acetaminophen 500 Mg Tab PO 01/14/23 05:59 Q4H PRN PRN Balanced Salt Solution 500 ml 12/15/22 06:00 Balanced Salt Soln.-Plus 500 Ml Bag OP 01/14/23 05:59 DIRECTED SYDNI Miscellaneous Medication 0 ml 12/15/22 06:00 Prednisolone 1%, Moxifloxacin 0.5%, Nepafenac 0.1% 5ml Btl OS 01/14/23 05:59 DIRECTED SYDNI Miscellaneous Medication 0 ml 12/15/22 06:00 Tropicam./Phenyleph. (1/2.5%) 5 Ml Btl OS 01/14/23 05:59 DIRECTED SYDNI Tetracaine HCl 0 ml 12/15/22 06:00 Tetracaine 0.5% 4 Ml Btl OS 01/14/23 05:59 DIRECTED SYDNI PFSH Active Problems Active Problems: Problem Status Onset Code Nuclear age-related cataract, left eye H25.12 Annual physical exam Z00.00 Insomnia G47.[address] R91.8 Low back pain M54.50 Cervical pain (neck) M54.2 Ingrown nail L60.0 Hip pain M25.559 Left foot pain M79.672 Osteoporosis M81.0 Insomnia G47.00 OAB (overactive bladder) N32.81 Fatigue 06/26/12 R53.83 Hematuria R31.9 Right hip pain 03/27/17 M25.551 Lichen planus L43.9 Hypercholesterolemia E78.00 Generalized osteoarthrosis M15.9 Diverticulosis of colon without diverticulitis K57.30 Diabetes mellitus 12/23/12 E11.9 Anxiety F41.9 Actinic keratosis 11/13/17 L57.0 Medical History Medical History Fatigue 06/26/12 Hematuria unspeficified; asymptomatic; neg W/U Ingrowing toenail (04/14/14) Ingrown toenail 04/14/14 Urinary tract infectious disease recurrent Surgical History Surgical History Bladder Surgery (~1999) SLING H/O bladder repair surgery sling History of bladder repair surgery Hysterectomy, Laproscopic (~1983) partial; dysmenorrhea S/P laparoscopic hysterectomy 05/07/83 partial, dysmenorrhea Status post laparoscopic hysterectomy Tobacco Smoking/Tobacco Use Status: Former Tobacco Use Passive smoking exposure: Yes Second hand exposure: Yes Alcohol Alcohol Intake: current Alcohol intake frequency: holidays/special occasions only Substance Use Substance use: Never Substance use type: does not use Vital Signs and Lab Results Vital Signs Most Recent Vital Signs in EMR: Temp Pulse Resp BP Pulse Ox 36.3 C L 97 H 18 125/81 95 12/15/22 09:00 12/15/22 09:00 12/15/22 09:00 12/15/22 09:00 12/15/22 09:00 Lab Results Blood Type / Crossmatch: No Data to Display Complete Blood Count: No Data to Display Complete Metabolic Panel: Hemoglobin A1c 11.4 % (<5.7) H 12/14/22 11:32 Liver Function Panel: No Data to Display Coagulation Panel: No Data to Display Cardiac Panel: No Data to Display Arterial Blood Gas: No Data to Display Venous Blood Gas: No Data to Display Pancreas Panel: No Data to Display Thyroid Panel: No Data to Display Infectious Disease: No Data to Display Blood Cultures: No Data to Display Toxicology Panel: No Data to Display Imaging and Studies Imaging and Studies Study information below may be from another EMR and interpreted by another provider. Please see original notes in EMR for more complete details. EKG Summary: 05/29: sinus, normal p axis. Anesthesia Assessment and Plan Anesthesia History Personal History: No History of Anesthesia Complications Family History: No Family History of Anesthesia Complications Exercise Tolerance Exercise Tolerance: Metabolic Equivalents>4 Cardiac & Pulmonary Exam Cardiac Exam: Normal S1/S2 Heart Sounds Pulmonary Exam: Clear Bilateral Breath Sounds Implantable Cardiac Device Does patient have a Pacemaker or an ICD?: No Airway Exam Known Difficult Airway: No Mallampati Class: 2 Mouth Opening: Normal (> 3cm) Thyromental Distance: Greater than 3 cm Neck Range of Motion: Full ROM Neck Circumference: Normal Teeth Condition: Normal Dentition ASA Classification ASA Score: ASA 2 Emergency Case?: No NPO Status NPO Status: NPO Clears >2 hours, Solids >8 hours Anesthesia Plan Resuscitation Status: Full Code Anesthesia Technique: MAC Anesthesia Airway Planned: Natural Airway Monitors Used: Standard Monitors Preoperative Comments:: 77 yo female for cataracts. No MKO, discussed IV intraop if needed. Sig PMHx: cervical pain, DM, anxiety, former smoker, occ EtOH. Previous Anes: - TURBT, prop, natural airway.
[2022-12-15 09:00] VITALS: BP 125/81; PULSE 97; RESP 18; TEMP 36.3; O2SAT 95
[2022-12-15] MEDS: Tropicam./Phenyleph. (1/2.5%) 5 ML BTL OS ×3 (09:05→09:28)
[2022-12-15 09:13] VITALS: BMI 31.6
[2022-12-15] MEDS: Tetracaine 0.5% 4 ML BTL OS (10:18)
[2022-12-15] MEDS: Povidone-Iodine Ophth 30 ML BTL (10:18)
[2022-12-15] MEDS: Phenylephrine/Lidocaine (15/10) MG/ML 1 ML VIAL (10:24)
[2022-12-15] MEDS: Duovisc Viscoelastic System EACH 1 EACH (10:24)
[2022-12-15] MEDS: Balanced Salt Soln.-PLUS 500 ML BAG OP (10:24)
[2022-12-15] MEDS: Lidocaine 1% Pres-Free 5 ML VIAL (10:25)
[2022-12-15 10:52] VITALS: BP 118/62; PULSE 77; RESP 16; TEMP 36.2; O2SAT 96
--- NOTE | 2022-12-15 10:54 | W.PM.DSUDISC ---
Date of service: 12/15/22 Time of Service: 10:54 Discharge Plan Disposition Patient Disposition: Home Discharge Details Attending Provider: Alexandre Cervantes Primary Care Provider: Sarah Weldon Home Meds and New Rx's Prescriptions: No Action triamcinolone acetonide 0.1 % cream 1 applic TP DAILY PRN docusate sodium 250 mg capsule 250 mg PO DAILY pldlxzc-ljkutjdqi-lkouqe-zinc Tablet 1 tab PO DAILY calcium polycarbophil [FiberCon] 625 mg tablet 1,250 mg PO BID loperamide 2 mg capsule 2 mg PO Q6H PRN clonazepam 1 mg tablet 1 mg PO BID Qty: 180 2RF Rx Instructions: polyethylene glycol 3350 [Miralax] 17 gram/dose powder 17 g PO DAILY multivitamin with minerals 1 EACH tablet 1 ea PO DAILY nystatin 100,000 unit/gram powder 1 applic topical BID Qty: 60 4RF methenamine hippurate 1 gram tablet 1 g PO BID Qty: 180 3RF hydrocortisone [Procto-Med HC] 2.5 % cream with perineal applicator 1 applic CA QD-BID PRN (Reason: itching) Qty: 30 2RF melatonin 5 mg capsule 5 mg PO HS Rx Instructions: Takes 1-2 gummies HS, PRN Myrbetriq 50 mg tablet extended release 24 hr 50 mg PO DAILY Qty: 90 3RF venlafaxine 75 mg capsule,extended release 24hr 150 mg PO DAILY Qty: 60 11RF quetiapine 100 mg tablet 100 mg PO BID Qty: 180 3RF simvastatin 10 mg tablet 10 mg PO pm Qty: 90 3RF (DME) pen needle, diabetic [BD Ultra-Fine Mini Pen Needle] 31 gauge x 3/16 needle See Rx Instructions .ROUTE .MEDSUPPLY Qty: 90 4RF Rx Instructions: Daily E11.9 Ozempic 0.25 mg or 0.5 mg (2 mg/3 mL) pen injector 0.5 mg subcut QWEEK Qty: 9 3RF fluconazole [Diflucan] 100 mg tablet 100 mg PO DIRECTED Qty: 2 0RF Rx Instructions: may repeat second dose 72 hrs after first dose if symptoms persist glipizide 10 mg tablet extended release 24hr 10 mg PO BID Qty: 180 3RF metformin 500 mg tablet 1,000 mg PO BID Qty: 360 4RF losartan 50 mg tablet 50 mg PO HS Discharge Instructions Stand Alone Forms: Post-op Topical Cataract, Eula Coley ([facility]) Discharge Orders Discharge Orders: Discharge Order (Routine); Ordered 12/15/22 Ordered By: Alexandre Cervantes DS: Diagnosis Discharge Diagnosis (1) Nuclear age-related cataract, left eye: Status: Resolved
--- NOTE | 2022-12-15 10:55 | W.PM.OP ---
Date of service: 12/15/22 Time of Service: 10:55 Operative Note Operative Note DATE OF PROCEDURE: 12/15/22 PRE-OP DIAGNOSIS: Nuclear cataract, left eye POST-OP DIAGNOSIS: same PROCEDURE: Cataract extraction using phacoemulsification with intraocular lens implant, left eye SURGEON: Alexandre Cervantes ANESTHESIA TYPE: Local By Surgeon and MAC Refer to Anesthesia Record PATHOLOGY: none sent COMPLICATIONS: None Patient was transported to: same day Patient's condition: stable Implants: Flakito and Flakito Tecnis Eyhance DIB00 Indications: Progressive decreased vision due to cataract, left eye Procedure Description: CATARACT SURGERY OPERATIVE REPORT PREOPERATIVE DIAGNOSIS: 1. Nuclear cataract, left eye POSTOPERATIVE DIAGNOSIS: Same OPERATION: 1. Cataract extraction using phacoemulsification with posterior chamber intraocular lens implant, left eye. IOL: IOL Senior Linux Unix Engineer/Model: Flakito & Flakito Tecnis Eyhance DIB00 IOL Power: + 22.0 diopters IOL Serial Number: [id number] Optic Diameter: 6.0 mm Haptic/Overall Diameter: 13.0 mm PHACO INFO: CoreyKiggiton Vision System with OZil and Active Fluidics Cumulative Dispersed Energy (CDE): 24.14 seconds SURGEON: Alexandre Cervantes MD, MARTIN ANESTHESIA: Monitored A [facility] (MAC), with local sub-tenon's anesthetic infiltration COMPLICATIONS: None SPECIMENS: None INDICATIONS FOR PROCEDURE: The patient is a 77-year-old lady with history of diminished visual acuity in her left eye secondary to the development of dense nuclear cataract. She is significantly symptomatic that she desires cataract surgery and attempt to improve and maximize her vision. The option of cataract surgery was offered to the patient and she wished to proceed. See office notes for detailed information. PROCEDURE: The correct surgical eye was identified and marked as the left eye and the pupil was dilated in the preoperative area using mydriatics and cycloplegics. The dilated pupil size was 7.0 mm. The patient elected to proceed without oral sedation. The patient was brought to the operating room where cardiopulmonary monitoring was instituted and surgical time-out was performed, confirming the correct operative eye and IOL power. Topical anesthesia was administered and ophthalmic povidone-iodine 5% was instilled into the conjunctival fornices. The heather-ocular area was prepped with Betadine 10% solution and draped in the usual sterile fashion for intraocular surgery, including an aperture drape. A Tegaderm transparent film dressing was cut in half and used to cover the lashes and lid margins. Care was taken to sequester the lashes and lid margins under the Tegaderm dressing. A lid speculum was placed between the lids of the operative eye and the Corey LuxOR Revalia operating microscope was maneuvered into position. Peggy scissors were then used to make a conjunctival buttonhole approximately 6mm posterior to the limbus in the inferonasal quadrant. Blunt dissection was carried out to expose bare sclera, and a blunt-tipped sub-tenon?s anesthesia cannula was introduced and passed posteriorly along the globe where non-preserved plain lidocaine was injected into posterior sub-Tenon?s space. A sideport knife was used to make a paracentesis port. Intraocular phenylephrine/lidocaine was injected into the anterior chamber.. The anterior chamber was filled with viscoelastic. A keratome knife was used to construct a 2-plane near-clear corneal tunnel extending 2.0mm into clear cornea. A flap was raised on the anterior capsule and capsulorhexis forceps were used to complete a continuous curvilinear capsulorhexis of 5.0 mm. The capsule was noted to be quite thin. Balanced salt solution was then used to perform cortical cleaving hydrodissection and nuclear hydrodelineation until the lens could be freely rotated within the capsular bag. The lens nucleus was then disassembled and removed within the capsular bag and iris plane using phacoemulsification. The anterior chamber was excessively deep, considering her axial length. Moderate generalized zonular laxity was noted. Nuclear splitters were used to aid and cracking the nucleus into 2 halves. Abundant Viscoat was used to protect the corneal endothelium. Residual cortical material was removed using the irrigation/aspiration handpiece. The posterior capsule was carefully polished to remove as much residual lens epithelial cells as safely possible. The capsular bag was then inflated and the anterior chamber deepened with viscoelastic. The lens implant described above was inserted into the capsular bag using the Flakito and Flakito Simplicity pre-loaded injector. A Kuglen hook was used to dial the IOL into position. Residual viscoelastic was then removed first from posterior to the IOL, then from the anterior chamber using the I/A handpiece. The lens implant was noted to center nicely within the capsular bag. The incisions were stromally hydrated, and the anterior chamber was reformed using BSS. Then 0.5cc of moxifloxacin 1.0mg/ml were injected into the capsular bag and anterior chamber. The incisions were checked with a Weck spear and found to be secure. Several drops of ophthalmic povidone-iodine 5% were then applied to the eye followed by two drops of Imprimis combination prednisolone/moxifloxacin/nepafenac solution. The drapes were removed and a clear plastic protective eye shield was placed over the eye. The patient was then returned to Same Day Surgery in stable condition.
--- NOTE | 2022-12-15 11:10 | W.ANESPOSTOP ---
Postoperative Evaluation Date, Time and Location Date Performed: 12/15/22 Time Performed: 11:00 Patient Location: Day Surgery Unit Vital Signs Most Recent Imported Vital Signs: Most Recent Vital Signs Temp Pulse Resp BP Pulse Ox 36.2 C L 77 16 118/62 96 12/15/22 10:52 12/15/22 10:52 12/15/22 10:52 12/15/22 10:52 12/15/22 10:52 Pain Score Most Recent Pain Score: Most Recent Pain Score Pain Level 0 12/15/22 10:52 Assessment Mental Status: Awake (Alert & Oriented to Patient Baseline) Airway and Respiratory Function: Patent airway with normal (patient baseline) respiratory exam Cardiovascular Function: Hemodynamically Stable Hydration Status: Adequately Hydrated Nausea & Vomiting: No Nausea or Vomiting Pain: Pt. Denies Any Pain Peripheral Nerve Block: Patient did not receive a nerve block
== END 2022-12-15 11:29 | disposition home or self-care (01) ==
PROVIDERS: PCP Family Medicine; Visit Provider Ophthalmology
PROC: (CPT 66984; principal; 2022-12-15 11:30)
DX: H25.12 Age-related nuclear cataract, left eye (principal)
CPT/HCPCS: 66984; V2632

== ENCOUNTER 2022-12-15 10:04 | Outpatient (REF) | payer OTHER, SELFPAY ==
[2022-12-16 11:14] LABS: Bilirubin Negative (Negative); Blood Negative (Negative); Clarity Sl Cloudy (Clear); Glucose >=1000 mg/dL (Negative); Ketones Negative (Negative); Leukocyte Esterase Negative (Negative); Nitrite Negative (Negative); Urobilinogen 0.2 mg/dL (Up to 0.2)
== END 2022-12-15 10:05 | disposition home or self-care (01) ==
LOC: LBN 10:04
PROVIDERS: PCP Family Medicine; Visit Provider Urology
DX: N39.0 Urinary tract infection, site not specified (principal)
CPT/HCPCS: 81003; 87086

== ENCOUNTER 2022-12-29 09:40 | Day surgery (SDC) | payer OTHER, SELFPAY ==
[2022-12-29 09:53] VITALS: BP 149/75; PULSE 89; RESP 20; TEMP 36; O2SAT 96
--- NOTE | 2022-12-29 09:56 | W.ANESPRE ---
General Info Date of Service Date Performed: 12/29/22 Height: 5 ft 4 in Weight: 83.574 kg Body Mass Index (BMI): 31.6 Surgical Procedure: Operation Date: 12/29/22 12:25 Proposed Procedure Side Surgeon p Cataract Extraction with IOL Implant Right Alexandre Cervantes MD Meds Allergies and Home Medications Allergies Allergy/AdvReac Type Severity Reaction Status Date / Time ibuprofen AdvReac Mild Stomach Unverified 12/28/22 12:01 cramps Home Medication Medication Instructions Recorded multivitamin with minerals 1 ea PO DAILY 11/30/12 calcium polycarbophil 625 mg 1,250 mg PO BID 07/25/21 tablet (FiberCon) adglplm-vyvoyhtdk-ebwuzy-zinc 1 tab PO DAILY 07/25/21 tablet docusate sodium 250 mg capsule 250 mg PO DAILY 07/25/21 loperamide 2 mg capsule 2 mg PO Q6H PRN 07/25/21 triamcinolone acetonide 0.1 % 1 applic topical DAILY PRN 07/25/21 topical cream nystatin 100,000 unit/gram topical 1 applic topical BID #60 grams 10/04/21 powder methenamine hippurate 1 gram tablet 1 g PO BID #180 tab-caps 01/10/22 hydrocortisone 2.5 % topical cream 1 applic NH QD-BID PRN itching #30 03/24/22 with perineal applicator grams (Procto-Med HC) melatonin 5 mg capsule 5 mg PO HS 04/11/22 mirabegron 50 mg tablet,extended 50 mg PO DAILY #90 tabs 04/18/22 release 24 hr (Myrbetriq) venlafaxine 75 mg capsule,extended 150 mg PO DAILY #60 tab-caps 05/02/22 release 24 hr quetiapine 100 mg tablet 100 mg PO BID #180 tabs 06/14/22 simvastatin 10 mg tablet 10 mg PO pm #90 tab-caps 06/23/22 clonazepam 1 mg tablet 1 mg PO BID #180 tab-caps 08/29/22 pen needle, diabetic 31 gauge x #90 ea 10/31/22 3/16 (BD Ultra-Fine Mini Pen Needle) semaglutide 0.25 mg or 0.5 mg (2 0.5 mg (0.736 mL) subcut QWEEK #9 10/31/22 mg/3 mL) subcutaneous pen injector mL (Ozempic) fluconazole 100 mg tablet 100 mg PO DIRECTED #2 tabs 11/06/22 (Diflucan) polyethylene glycol 3350 17 17 g PO DAILY 12/04/22 gram/dose oral powder (Miralax) losartan 50 mg tablet 50 mg PO HS 12/13/22 glipizide 10 mg tablet, extended 10 mg PO BID #180 tabs 12/14/22 release 24 hr Current Visit Medications: Current Medications Generic Name Dose Route Start Last Admin Trade Name Freq PRN Reason Stop Dose Admin Acetaminophen 1,000 mg 12/29/22 06:00 Acetaminophen 500 Mg Tab PO 01/28/23 05:59 Q4H PRN PRN Balanced Salt Solution 500 ml 12/29/22 06:00 Balanced Salt Soln.-Plus 500 Ml Bag OP 01/28/23 05:59 DIRECTED SYDNI Miscellaneous Medication 0 ml 12/29/22 06:00 Prednisolone 1%, Moxifloxacin 0.5%, Nepafenac 0.1% 5ml Btl OD 01/28/23 05:59 DIRECTED SYDNI Miscellaneous Medication 0 ml 12/29/22 06:00 Tropicam./Phenyleph. (1/2.5%) 5 Ml Btl OD 01/28/23 05:59 DIRECTED SYDNI Tetracaine HCl 0 ml 12/29/22 06:00 Tetracaine 0.5% 4 Ml Btl OD 01/28/23 05:59 DIRECTED SYDNI PFSH Active Problems Active Problems: Problem Status Onset Code Nuclear age-related cataract, right eye H25.11 Actinic keratosis 11/13/17 L57.0 Anxiety F41.9 Diabetes mellitus 12/23/12 E11.9 Diverticulosis of colon without diverticulitis K57.30 Generalized osteoarthrosis M15.9 Hypercholesterolemia E78.00 Lichen planus L43.9 Right hip pain 03/27/17 M25.551 Hematuria R31.9 Fatigue 06/26/12 R53.83 OAB (overactive bladder) N32.81 Insomnia G47.00 Osteoporosis M81.0 Left foot pain M79.672 Hip pain M25.559 Ingrown nail L60.0 Cervical pain (neck) M54.2 Low back pain M54.[address] R91.8 Insomnia G47.00 Annual physical exam Z00.00 Nuclear age-related cataract, left eye H25.12 Medical History Medical History (Updated 12/28/22 @ 22:02 by Alexandre Cervantes MD) Fatigue 06/26/12 Hematuria unspeficified; asymptomatic; neg W/U Ingrowing toenail (04/14/14) Ingrown toenail 04/14/14 Urinary tract infectious disease recurrent Surgical History Surgical History (Updated 12/28/22 @ 13:35 by Lila Kelly RN) Bladder Surgery (~1999) SLING H/O bladder repair surgery sling History of bladder repair surgery History of cataract surgery Hysterectomy, Laproscopic (~1983) partial; dysmenorrhea S/P laparoscopic hysterectomy 05/07/83 partial, dysmenorrhea Status post laparoscopic hysterectomy Tobacco Smoking/Tobacco Use Status: Former Tobacco Use Passive smoking exposure: Yes Second hand exposure: Yes Alcohol Alcohol Intake: current Alcohol intake frequency: holidays/special occasions only Substance Use Substance use: Never Substance use type: does not use Vital Signs and Lab Results Vital Signs Most Recent Vital Signs in EMR: Most Recent Vital Signs Temp Pulse Resp BP Pulse Ox 36 C L 89 20 149/75 H 96 12/29/22 09:53 12/29/22 09:53 12/29/22 09:53 12/29/22 09:53 12/29/22 09:53 Lab Results Blood Type / Crossmatch: No Data to Display Complete Blood Count: No Data to Display Complete Metabolic Panel: Hemoglobin A1c 11.4 % (<5.7) H 12/14/22 11:32 Liver Function Panel: No Data to Display Coagulation Panel: No Data to Display Cardiac Panel: No Data to Display Arterial Blood Gas: No Data to Display Venous Blood Gas: No Data to Display Pancreas Panel: No Data to Display Thyroid Panel: No Data to Display Infectious Disease: No Data to Display Blood Cultures: No Data to Display Toxicology Panel: No Data to Display Imaging and Studies Imaging and Studies Study information below may be from another EMR and interpreted by another provider. Please see original notes in EMR for more complete details. EKG Summary: 05/29: sinus, normal p axis. Anesthesia Assessment and Plan Anesthesia History Personal History: No History of Anesthesia Complications Family History: No Family History of Anesthesia Complications Exercise Tolerance Exercise Tolerance: Metabolic Equivalents>4 Pertinent Negatives Pertinent Negatives: No Symptoms of GERD Cardiac & Pulmonary Exam Cardiac Exam: Normal S1/S2 Heart Sounds Pulmonary Exam: Clear Bilateral Breath Sounds Implantable Cardiac Device Does patient have a Pacemaker or an ICD?: No Airway Exam Known Difficult Airway: No Mallampati Class: 2 Mouth Opening: Normal (> 3cm) Thyromental Distance: Greater than 3 cm Neck Range of Motion: Full ROM Neck Circumference: Normal Teeth Condition: Normal Dentition ASA Classification ASA Score: ASA 2 Emergency Case?: No NPO Status NPO Status: NPO Clears >2 hours, Solids >8 hours Anesthesia Plan Resuscitation Status: Full Code Anesthesia Technique: MAC Anesthesia Airway Planned: Natural Airway Monitors Used: Standard Monitors
[2022-12-29 09:57] VITALS: BMI 31.6
[2022-12-29] MEDS: Tropicam./Phenyleph. (1/2.5%) 5 ML BTL OD ×3 (10:11→10:33)
[2022-12-29 10:12] VITALS: BP 149/75; PULSE 89; RESP 20; TEMP 36; O2SAT 96
[2022-12-29] MEDS: Balanced Salt Soln.-PLUS 500 ML BAG OP (10:48)
[2022-12-29] MEDS: Tetracaine 0.5% 4 ML BTL OD (10:50)
[2022-12-29] MEDS: Duovisc Viscoelastic System EACH 1 EACH (10:50)
[2022-12-29] MEDS: Lidocaine 1% Pres-Free 5 ML VIAL (10:51)
[2022-12-29] MEDS: Phenylephrine/Lidocaine (15/10) MG/ML 1 ML VIAL (10:52)
[2022-12-29] MEDS: Povidone-Iodine Ophth 30 ML BTL (10:53)
--- NOTE | 2022-12-29 11:08 | W.PM.DSUDISC ---
Date of service: 12/29/22 Time of Service: 11:09 Discharge Plan Disposition Patient Disposition: Home Discharge Details Attending Provider: Alexandre Cervantes Primary Care Provider: Sarah Weldon Home Meds and New Rx's Prescriptions: No Action triamcinolone acetonide 0.1 % cream 1 applic TP DAILY PRN docusate sodium 250 mg capsule 250 mg PO DAILY lxfbdrq-jczlswkig-pmpyxy-zinc Tablet 1 tab PO DAILY calcium polycarbophil [FiberCon] 625 mg tablet 1,250 mg PO BID loperamide 2 mg capsule 2 mg PO Q6H PRN clonazepam 1 mg tablet 1 mg PO BID Qty: 180 2RF Rx Instructions: polyethylene glycol 3350 [Miralax] 17 gram/dose powder 17 g PO DAILY multivitamin with minerals 1 EACH tablet 1 ea PO DAILY nystatin 100,000 unit/gram powder 1 applic topical BID Qty: 60 4RF methenamine hippurate 1 gram tablet 1 g PO BID Qty: 180 3RF hydrocortisone [Procto-Med HC] 2.5 % cream with perineal applicator 1 applic MS QD-BID PRN (Reason: itching) Qty: 30 2RF melatonin 5 mg capsule 5 mg PO HS Rx Instructions: Takes 1-2 gummies HS, PRN Myrbetriq 50 mg tablet extended release 24 hr 50 mg PO DAILY Qty: 90 3RF venlafaxine 75 mg capsule,extended release 24hr 150 mg PO DAILY Qty: 60 11RF quetiapine 100 mg tablet 100 mg PO BID Qty: 180 3RF simvastatin 10 mg tablet 10 mg PO pm Qty: 90 3RF (DME) pen needle, diabetic [BD Ultra-Fine Mini Pen Needle] 31 gauge x 3/16 needle See Rx Instructions .ROUTE .MEDSUPPLY Qty: 90 4RF Rx Instructions: Daily E11.9 Ozempic 0.25 mg or 0.5 mg (2 mg/3 mL) pen injector 0.5 mg subcut QWEEK Qty: 9 3RF fluconazole [Diflucan] 100 mg tablet 100 mg PO DIRECTED Qty: 2 0RF Rx Instructions: may repeat second dose 72 hrs after first dose if symptoms persist glipizide 10 mg tablet extended release 24hr 10 mg PO BID Qty: 180 3RF losartan 50 mg tablet 50 mg PO HS Discharge Instructions Stand Alone Forms: Post-op Topical Cataract, Press Ganey (DSU) Discharge Orders Discharge Orders: Discharge Order (Routine); Ordered 12/29/22 Ordered By: Alexandre Cervantes DS: Diagnosis Discharge Diagnosis (1) Nuclear age-related cataract, right eye: Status: Resolved
--- NOTE | 2022-12-29 11:09 | ROE_ITS ---
Date of service: 12/29/22 Time of Service: 11:09 Operative Note Operative Note DATE OF PROCEDURE: 12/29/22 PRE-OP DIAGNOSIS: Nuclear cataract, right eye POST-OP DIAGNOSIS: same PROCEDURE: Cataract extraction using phacoemulsification with intraocular lens implant, right eye SURGEON: Alexandre Cervantes ANESTHESIA TYPE: Local By Surgeon and MAC Refer to Anesthesia Record ESTIMATED BLOOD LOSS: 0 PATHOLOGY: none sent COMPLICATIONS: None Patient was transported to: same day Patient's condition: stable Implants: Flakito & Flakito Tecnis Eyhance DIB00 Indications: Progressive visual loss due to cataract, right eye Procedure Description: CATARACT SURGERY OPERATIVE REPORT PREOPERATIVE DIAGNOSIS: 1. Nuclear cataract, right eye POSTOPERATIVE DIAGNOSIS: Same OPERATION: 1. Cataract extraction using phacoemulsification with posterior chamber intraocular lens implant, right eye. IOL: IOL Print Project Manager/Model: Flakito & Flakito Tecnis Eyhance DIB00 IOL Power: + 21.5 diopters IOL Serial Number: [id number] Optic Diameter: 6.0mm Haptic/Overall Diameter: 13.0mm PHACO INFO: CoreySynchroneuronon Vision System with OZil and Active Fluidics Cumulative Dispersed Energy (CDE): 17.66 seconds SURGEON: Alexandre Cervantes MD, MARTIN ANESTHESIA: Monitored Anesthesia Care (MAC), with local sub-tenon's anesthetic infiltration COMPLICATIONS: None SPECIMENS: None INDICATIONS FOR PROCEDURE: The patient is a 77-year-old lady with history of diminished visual acuity in both eyes secondary to the development of dense bilateral nuclear cataract. She has already undergone cataract surgery in the left eye and is doing well postoperatively. She now presents for cataract surgery in the right eye. See office notes for detailed information. PROCEDURE: The correct surgical eye was identified and marked as the right eye and the pupil was dilated in the preoperative area using mydriatics and cycloplegics. The dilated pupil size was 7.0 mm. . The patient elected to proceed without oral sedation. The patient was brought to the operating room where cardiopulmonary monitoring was instituted and surgical time-out was performed, confirming the correct operative eye and IOL power. Topical anesthesia was administered and ophthalmic povidone-iodine 5% was instilled into the conjunctival fornices. The heather-ocular area was prepped with Betadine 10% solution and draped in the usual sterile fashion for intraocular surgery, including an aperture drape. A Tegaderm transparent film dressing was cut in half and used to cover the lashes and lid margins. Care was taken to sequester the lashes and lid margins under the Tegaderm dressing. A lid speculum was placed between the lids of the operative eye and the Corey LuxOR Revalia operating microscope was maneuvered into position. Peggy scissors were then used to make a conjunctival buttonhole approximately 6mm posterior to the limbus in the inferonasal quadrant. Blunt dissection was carried out to expose bare sclera, and a blunt-tipped sub-tenon?s anesthesia cannula was introduced and passed posteriorly along the globe where non- preserved plain lidocaine was injected into posterior sub-Tenon?s space. A sideport knife was used to make a paracentesis port. Intraocular phenylephrine/lidocaine was injected into the anterior chamber. The anterior chamber was filled with viscoelastic. A keratome knife was used to construct a 2-plane clear corneal tunnel extending 2.0mm into clear cornea. A flap was raised on the anterior capsule and capsulorhexis forceps were used to complete a continuous curvilinear capsulorhexis of 5.0 mm. Balanced salt solution was then used to perform cortical cleaving hydrodissection and nuclear hydrodelineation until the lens could be freely rotated within the capsular bag. The lens nucleus was then disassembled and removed within the capsular bag and iris plane using phacoemulsification. Residual cortical material was removed using the I/A handpiece. The posterior capsule was carefully polished to remove as much residual lens epithelial cells as safely possible. The capsular bag was then inflated and the anterior chamber deepened with cohesive viscoelastic. The lens implant described above was inserted into the capsular bag using the Flakito and Laura Simplicity pre- loaded injector. A Kuglen hook was used to dial the IOL into position. Residual viscoelastic was then removed first from posterior to the IOL, then from the anterior chamber using the I/A handpiece. The lens implant was noted to center nicely within the capsular bag. The incisions were stromally hydrated, and the anterior chamber was reformed using BSS. Then 0.5cc of moxifloxacin 1.0mg/ml were injected into the capsular bag and anterior chamber. The incisions were checked with a Weck spear and found to be secure. Several drops of ophthalmic povidone-iodine 5% were then applied to the eye followed by two drops of Imprimis combination prednisolone/moxifloxacin/nepafenac solution. The drapes were removed and a clear plastic protective eye shield was placed over the eye. The patient was then returned to Same Day Surgery in stable condition.
[2022-12-29 11:12] VITALS: BP 127/70; PULSE 69; RESP 20; TEMP 36.5; O2SAT 96
--- NOTE | 2022-12-29 11:16 | W.ANESPOSTOP ---
Postoperative Evaluation Date, Time and Location Date Performed: 12/29/22 Time Performed: 11:16 Patient Location: Day Surgery Unit Vital Signs Most Recent Imported Vital Signs: Most Recent Vital Signs Temp Pulse Resp BP Pulse Ox 36.5 C 69 20 127/70 96 12/29/22 11:12 12/29/22 11:12 12/29/22 11:12 12/29/22 11:12 12/29/22 11:12 Pain Score Most Recent Pain Score: Most Recent Pain Score Pain Level 0 12/29/22 11:12 Assessment Mental Status: Awake (Alert & Oriented to Patient Baseline) Airway and Respiratory Function: Patent airway with normal (patient baseline) respiratory exam Cardiovascular Function: Hemodynamically Stable Hydration Status: Adequately Hydrated Nausea & Vomiting: No Nausea or Vomiting Pain: Pt. Denies Any Pain Peripheral Nerve Block: Patient did not receive a nerve block
== END 2022-12-29 11:39 | disposition home or self-care (01) ==
LOC: SUR 09:41
PROVIDERS: PCP Family Medicine; Visit Provider Ophthalmology
PROC: (CPT 66984; principal; 2022-12-29 12:15)
DX: H25.11 Age-related nuclear cataract, right eye (principal); E11.9 Type 2 diabetes mellitus without complications; Z98.42 Cataract extraction status, left eye
CPT/HCPCS: 66984; V2632

== ENCOUNTER → 2023-03-08 12:15 | Outpatient (CLI) | payer OTHER, SELFPAY ==
--- NOTE | 2023-03-08 11:45 | DI.CT_ITS ---
Exam(s) CT ABDOMEN PELVIS W EXAM: CT ABDOMEN PELVIS W CLINICAL HISTORY: Acute jaundice R17 TECHNIQUE: Imaging Protocol: Axial computed tomography images with coronal and sagittal reformatted images were created and reviewed CONTRAST MATERIAL: Intravenous: Omnipaque 350 Contrast volume:100 mL Oral: Yes COMPARISON: CT CT ABDOMEN PELVIS WO/W from 03/07/2021 FINDINGS: ABDOMEN: Lung Bases: There are calcified granuloma present. There is dependent atelectasis. Liver: There is diffuse decreased attenuation of the liver. No measurable mass. Portal, Superior Mesenteric, and Splenic Veins: Unremarkable. Gallbladder and Biliary Tract: The gallbladder is moderately distended. No stones are seen. There i s no gallbladder wall thickening. Dilatation of the intra and extrahepatic bile ducts is present to the level of the pancreatic head. No definite pancreatic head mass is seen on this examination. Pancreas: There is diffuse atrophy of the pancreas. There is prominence of the pancreatic duct throu ghout its length. Spleen: Normal. Adrenals: No masses seen. Kidneys: Normal size, contour and axis. No radiodense stones or obstructive uropathy. There is a simp le right renal cyst measuring 2.1 cm. No follow-up is recommended. Abdominal Aorta: Abdominal portion non-dilated. Atherosclerosis. Bowel: There is diverticulosis of the colon without evidence of acute diverticulitis. There is no ev idence of bowel obstruction or bowel wall thickening. Appendix is unremarkable. Peritoneal Cavity: No ascites, collection or mesenteric inflammatory response. No free air. Lymph Nodes: Within normal limits. Bones: Within normal limits for the patient's age. Soft Tissues: Unremarkable. PELVIS: Bladder: There is diffuse thickening of the wall of the urinary bladder. Reproductive Organs: Status post hysterectomy. Lymph Nodes: Within normal limits. Bones: Within normal limits for the patient's age. IMPRESSION: 1. Dilatation of the intra and extrahepatic bile ducts to the level of the pancreatic head. No disce rnible pancreatic mass is seen on this examination. There is atrophy of the pancreas and prominence of the pancreatic duct. MRI of the pancreas and MRCP is recommended to exclude a pancreatic/ampullar y mass. 2. Hepatomegaly and hepatic steatosis. 3. There is diffuse thickening of the wall of the urinary bladder. This can be seen with underdisten tion, cystitis or chronic bladder outlet obstruction. Please correlate clinically. 4. Findings were discussed with Dr. Lafleur at 3:16 p.m. on 03/08/2023. RADIATION DOSE DELIVERED: Total DLP DATA REPOSITORY: All CT scans at this facility are submitted to the National Radiology Data Registry (NRDR) Dose Index Registry (DIR) with the [employer] (ACR). RADIATION OPTIMIZATION: All CT scans at this facility use at least one of these dose optimization te chniques: automated exposure control; mA and/or kV adjustment per patient size (includes targeted exa ms where dose is matched to clinical indication); or iterative reconstruction.
[2023-03-08] MEDS: Barium Sulfate 2% W/V-Berry Smoothie 450 ML BTL PO (12:40)
[2023-03-08 12:44] LABS: Abs Immature Grans 0.05 10^3/uL (0.0-0.06); Absolute Basophil Count 0.05 10^3/uL (0.0-0.2); Absolute Eosinophil Count 0.15 10^3/uL (0.0-0.7); Absolute Monocyte Count 0.33 10^3/uL (0.1-0.8); Absolute Neutrophil Count 6.85 10^3/uL (1.2-6.7); Basophils % 0.6; Eosinophils % 1.7; HCT 38.7 % (36.0-46.0); HGB 12.5 g/dL (11.2-15.7); Immature Grans % 0.6; Lymphocytes % 13.9; MCH 27.3 pg (27.0-33.0); MCHC 32.3 % (32.0-36.0); MCV 85 fL (80-95); Monocytes % 3.8; Neutrophils % 79.4; RBC 4.58 10^6/uL (3.93-5.22); RDW-SD 46.1 fL; WBC 8.63 10^3/uL (4.4-10.8)
[2023-03-08 13:01] LABS: Diff Comment PLT Morph Reviewed; Platelet Count 25 10^3/uL (130-400); Poikilocytes 1+
[2023-03-08 13:06] LABS: ALT 541 U/L (14-59); AST 333 U/L (15-37); Albumin 2.8 g/dL (3.4-5.0); Amylase 17 U/L (25-115); Anion Gap 11.3 mmol/L (3-11); BUN 13 mg/dL (7-18); CO2 24.7 mmol/L (21.0-32.0); CREATININE 0.7 mg/dL (0.55-1.02); Calcium 9.9 mg/dL (8.5-10.1); Chloride 88 mmol/L (98-107); Estimated GFR 87.92 (mL/min/1.73m2); Lipase 50 U/L (16-77); Potassium 4.1 mmol/L (3.5-5.1); Total Protein 7.2 g/dL (6.4-8.2)
[2023-03-08 13:09] LABS: LDH 278 U/L (81-234)
[2023-03-08 13:11] LABS: Alkaline Phosphatase 1444 U/L (46-116); Bilirubin, Total 19.1 mg/dL (0.2-1.0)
[2023-03-08 13:12] LABS: Glucose 507 mg/dL (74-106); Sodium 124 mmol/L (136-145)
[2023-03-08] MEDS: Normal Saline - Diluent 50 ML VIAL IJ (14:31)
[2023-03-08] MEDS: Normal Saline Flush 10 ML SYR IVP (14:34)
[2023-03-08] MEDS: Omnipaque 350 MG/ML 100 ML BTL IJ (14:34)
[2023-03-08 17:03] LABS: Hemoglobin A1C 11.6 % (<5.7)
[2023-03-08 22:11] LABS: Lab Add On Test DONE
[2023-03-12 12:36] LABS: Hepatitis A Antibody IgM Negative (Negative); Hepatitis B Core Antibody Negative (Negative); Hepatitis B surface Ag Negative (Negative); Hepatitis C Ab w Rflx HCV PCR Negative (Negative)
[2023-03-12 13:07] LABS: CA 19-9 204 U/mL (<35)
== END ==
PROVIDERS: PCP Family Medicine; Visit Provider Nurse Practitioner Family
DX: E11.9 Type 2 diabetes mellitus without complications; R17 Unspecified jaundice
CPT/HCPCS: 80053; 83690; 86704; 86709; 86803; 87340; 74177; 82150; 83036; 83605; 83615; 85025; 86301; J3490

== ENCOUNTER 2023-03-08 14:51 | Observation (INO) | payer OTHER, SELFPAY ==
[2023-03-08 14:55] VITALS: BP 149/75; PULSE 83; RESP 15; TEMP 36.3; O2SAT 98
[2023-03-08 15:00] VITALS: RESP 15
--- NOTE | 2023-03-08 15:06 | ED.GENADUL_ITS ---
Discharge Plan Discharge Details Chief Complaint: GenMedical Clinical Impression: Transaminitis, Jaundice, Thrombocytopenia Primary Care Provider: Sarah Weldon ED Provider: Tesfaye Lafleur Home Meds and New Rx's Prescriptions: No Action triamcinolone acetonide 0.1 % cream 1 applic TP DAILY PRN polyethylene glycol 3350 [Miralax] 17 gram/dose powder 17 g PO DAILY Myrbetriq 50 mg tablet extended release 24 hr 50 mg PO DAILY Qty: 90 3RF methenamine hippurate 1 gram tablet 1 g PO BID Qty: 180 3RF simvastatin 10 mg tablet 10 mg PO pm Qty: 90 3RF glipizide 10 mg tablet extended release 24hr 10 mg PO BID Qty: 180 3RF Ozempic 0.25 mg or 0.5 mg (2 mg/3 mL) pen injector 0.5 mg subcut QWEEK Qty: 9 3RF multivitamin with minerals 1 EACH tablet 1 ea PO DAILY nystatin 100,000 unit/gram powder 1 applic topical BID Qty: 60 4RF hydrocortisone [Procto-Med HC] 2.5 % cream with perineal applicator 1 applic IL QD-BID PRN (Reason: itching) Qty: 30 2RF melatonin 5 mg capsule 5 mg PO HS Rx Instructions: Takes 1-2 gummies HS, PRN venlafaxine 75 mg capsule,extended release 24hr 150 mg PO DAILY Qty: 60 11RF quetiapine 100 mg tablet 100 mg PO BID Qty: 180 3RF (DME) pen needle, diabetic [BD Ultra-Fine Mini Pen Needle] 31 gauge x 3/16 needle See Rx Instructions .ROUTE .MEDSUPPLY Qty: 90 4RF Rx Instructions: Daily E11.9 clonazepam 1 mg tablet 1 mg PO BID Qty: 180 2RF Rx Instructions: losartan 50 mg tablet 50 mg PO HS Medical Decision Making This is a very pleasant 78-year-old female with a past medical history of diabetes mellitus, high cholesterol, osteoarthritis, who presents today for electrolyte abnormality and thrombocytopenia and jaundice. Patient has nearly 0 complaints. She states that she went into see her primary care provider today, and she was noticed to be extremely yellow. A plethora of labs and imaging was ordered, and results of the labs prompted the PCP to recommend the patient come to the ER for further assessment which is notably appropriate. Patient's work- up showed hyponatremia, hypochloremia, notable transaminitis very high alk phos, still pending CAT scan results. Lipase normal. Patient denies any abdominal pain, vomiting, diarrhea. She does state that her stool has been slightly more roman colored recently. She noticed that yesterday her color was off. She denies any new medications whatsoever. She had decreased some of her diabetes medications recently per physician orders, but no new ones were added. She denies any alcohol use. She denies any recent Tylenol use. She denies any recent sickness. No family history of Bacon's disease. No history of IV drug use or hepatitis. No other complaints at this time. Exam demonstrates a notably jaundiced female, no as directed. Scleral icterus is present. No abdominal pain or right upper quadrant pain whatsoever. Concern is for hepatic pancreatic or gallbladder related mass or obstruction. Hepatitis less likely. Infectious etiology potential but less likely. We will get additional coagulation studies, get an ammonia level, send for hepatitis, check serum and urine electrolytes. We will also give a liter bolus of normal saline and recheck her electrolyte status after that. Pending glucose return for potential correction. With no evidence of altered mental status or significant neurologic deficit no indication for hypertonic saline at this time. We will correct safely and slowly. 3:[address] scan [address] Munoz shows no evidence of clear obstructive focus, however there is gallbladder dilatation and biliary ductal dilatation. Concern for potential mass at ampulla, however no visualization of this is noted. Recommend MRCP. Discussed the case with surgery Dr. Munoz. He agrees on the need for MRCP. Due to the current nonsurgical component of the patient's status, and the multiple medical abnormalities currently present, appropriate admission would be to the medicine team with surgical consult. We will reach out to the hospitalist. 3:41 PM On reassessment of labs through discussion of hospitalist service it was noted that patient is hyperglycemic, recorrection of sodium demonstrates a normal sodium level with correction for the hyperglycemia. Platelets obviously as well as all the other components are still certainly abnormal. We will get an MRCP now, and admit to the hospitalist inpatient service. Discussed the case with Dr. Pope, he agrees with the plan. I have extensively reviewed the treatment plan with the patient. I have addressed all patient concerns at this time. I have also discussed the plan with the admitting physician and they agree with the current assessment and plan and have agreed to assume responsibility for the patient. All parties demonstrate verbal understanding and agreement with our assessment and plan at this time. The documentation in this chart was dictated using [employer] dictation software. Please excuse any dictation errors. FINDINGS: ABDOMEN: Lung Bases: There are calcified granuloma present. There is dependent atelectasis. Liver: There is diffuse decreased attenuation of the liver. No measurable mass. Portal, Superior Mesenteric, and Splenic Veins: Unremarkable. Gallbladder and Biliary Tract: The gallbladder is moderately distended. No stones are seen. There is no gallbladder wall thickening. Dilatation of the intra and extrahepatic bile ducts is present to the level of the pancreatic head. No definite pancreatic head mass is seen on this examination. Pancreas: There is diffuse atrophy of the pancreas. There is prominence of the pancreatic duct throughout its length. Spleen: Normal. Adrenals: No masses seen. Kidneys: Normal size, contour and axis. No radiodense stones or obstructive uropathy. There is a simple right renal cyst measuring 2.1 cm. No follow-up is recommended. Abdominal Aorta: Abdominal portion non-dilated. Atherosclerosis. Bowel: There is diverticulosis of the colon without evidence of acute diverticulitis. There is no evidence of bowel obstruction or bowel wall thickening. Appendix is unremarkable. Peritoneal Cavity: No ascites, collection or mesenteric inflammatory response. No free air. Lymph Nodes: Within normal limits. Bones: Within normal limits for the patient's age. Soft Tissues: Unremarkable. PELVIS: Bladder: There is diffuse thickening of the wall of the urinary bladder. Reproductive Organs: Status post hysterectomy. Lymph Nodes: Within normal limits. Bones: Within normal limits for the patient's age. IMPRESSION: 1. Dilatation of the intra and extrahepatic bile ducts to the level of the pancreatic head. No discernible pancreatic mass is seen on this examination. There is atrophy of the pancreas and prominence of the pancreatic duct. MRI of the pancreas and MRCP is recommended to exclude a pancreatic/ampullary mass. 2. Hepatomegaly and hepatic steatosis. 3. There is diffuse thickening of the wall of the urinary bladder. This can be seen with underdistention, cystitis or chronic bladder outlet obstruction. Please correlate clinically. 4. Findings were discussed with Dr. Lafleur at 3:16 p.m. on 03/08/2023. HPI General Date/Time Provider Initiated Documentation: 03/08/23 14:54 . HPI Narrative: This is a very pleasant 78-year-old female with a past medical history of diabetes mellitus, high cholesterol, osteoarthritis, who presents today for electrolyte abnormality and thrombocytopenia and jaundice. Patient has nearly 0 complaints. She states that she went into see her primary care provider today, and she was noticed to be extremely yellow. A plethora of labs and imaging was ordered, and results of the labs prompted the PCP to recommend the patient come to the ER for further assessment which is notably appropriate. Patient's work- up showed hyponatremia, hypochloremia, notable transaminitis very high alk phos, still pending CAT scan results. Lipase normal. Patient denies any abdominal pain, vomiting, diarrhea. She does state that her stool has been slightly more roman colored recently. She noticed that yesterday her color was off. She denies any new medications whatsoever. She had decreased some of her diabetes medications recently per physician orders, but no new ones were added. She denies any alcohol use. She denies any recent Tylenol use. She denies any recent sickness. No family history of Bacon's disease. No history of IV drug use or hepatitis. No other complaints at this time. Related Data Home Medications Medication Instructions Recorded Confirmed multivitamin with minerals 1 ea PO DAILY 11/30/12 03/08/23 triamcinolone acetonide 0.1 % 1 applic topical DAILY PRN 07/25/21 03/08/23 topical cream nystatin 100,000 unit/gram topical 1 applic topical BID #60 grams 10/04/21 03/08/23 powder hydrocortisone 2.5 % topical cream 1 applic IL QD-BID PRN itching #30 03/24/22 03/08/23 with perineal applicator grams (Procto-Med HC) melatonin 5 mg capsule 5 mg PO HS 04/11/22 03/08/23 venlafaxine 75 mg capsule,extended 150 mg (2 x 75 mg) PO DAILY #60 05/02/22 03/08/23 release 24 hr tab-caps quetiapine 100 mg tablet 100 mg PO BID #180 tabs 06/14/22 03/08/23 pen needle, diabetic 31 gauge x #90 ea 10/31/22 03/08/23/16 (BD Ultra-Fine Mini Pen Needle) polyethylene glycol 3350 17 17 g PO DAILY 12/04/22 03/08/23 gram/dose oral powder (Miralax) losartan 50 mg tablet 50 mg PO HS 12/13/22 03/08/23 glipizide 10 mg tablet, extended 10 mg PO BID #180 tabs 01/29/23 03/08/23 release 24 hr methenamine hippurate 1 gram tablet 1 g PO BID #180 tab-caps 01/29/23 03/08/23 mirabegron 50 mg tablet,extended 50 mg PO DAILY #90 tabs 01/29/23 03/08/23 release 24 hr (Myrbetriq) semaglutide 0.25 mg or 0.5 mg (2 0.5 mg (0.736 mL) subcut QWEEK #9 01/29/23 03/08/23 mg/3 mL) subcutaneous pen injector mL (Ozempic) simvastatin 10 mg tablet 10 mg PO pm #90 tab-caps 01/29/23 03/08/23 clonazepam 1 mg tablet 1 mg PO BID #180 tab-caps 03/02/23 03/08/23 Previous Rx's Medication Instructions Recorded nystatin 100,000 unit/gram topical 1 applic topical BID #60 grams 10/04/21 powder hydrocortisone 2.5 % topical cream 1 applic IL QD-BID PRN itching #30 03/24/22 with perineal applicator grams (Procto-Med HC) venlafaxine 75 mg capsule,extended 150 mg (2 x 75 mg) PO DAILY #60 05/02/22 release 24 hr tab-caps quetiapine 100 mg tablet 100 mg PO BID #180 tabs 06/14/22 pen needle, diabetic 31 gauge x #90 ea 10/31/22/ (BD Ultra-Fine Mini Pen Needle) glipizide 10 mg tablet, extended 10 mg PO BID #180 tabs 01/29/23 release 24 hr methenamine hippurate 1 gram tablet 1 g PO BID #180 tab-caps 01/29/23 mirabegron 50 mg tablet,extended 50 mg PO DAILY #90 tabs 01/29/23 release 24 hr (Myrbetriq) semaglutide 0.25 mg or 0.5 mg (2 0.5 mg (0.736 mL) subcut QWEEK #9 01/29/23 mg/3 mL) subcutaneous pen injector mL (Ozempic) simvastatin 10 mg tablet 10 mg PO pm #90 tab-caps 01/29/23 clonazepam 1 mg tablet 1 mg PO BID #180 tab-caps 03/02/23 Allergies Allergy/AdvReac Type Severity Reaction Status Date / Time ibuprofen AdvReac Mild Stomach Unverified 03/08/23 16:58 cramps General Stated Complaint: GenMedical ANDER: 3 Review of Systems All systems reviewed & are unremarkable except as noted in HPI and below PFSH All Active Problems (Updated 03/08/23 @ 17:01 by Tesfaye Lafleur DO) Thrombocytopenia (Chronic) Transaminitis (Acute) Jaundice (Acute) Actinic keratosis (Chronic 11/13/17) Anxiety (Chronic) chronic benzodiazipine use 03/27/17 FLOR-7 SCORE=7 07/02/17 FLOR-7 SCORE=13 Diabetes mellitus (Chronic 12/23/12) Diverticulosis of colon without diverticulitis (Chronic) Generalized osteoarthrosis (Chronic) low back pain; xray + DJD Hypercholesterolemia (Chronic) Lichen planus (Chronic) mouth Right hip pain (Chronic 03/27/17) Hematuria (Acute) Neg work-up 2013. UA not meeting RBC in years since for repeat Fatigue (Acute 06/26/12) OAB (overactive bladder) (Acute) Insomnia (Acute) Osteoporosis (Chronic) Left foot pain (Acute) Hip pain (Acute) Ingrown nail (Acute) Cervical pain (neck) (Acute) Low back pain (Acute) Lung infiltrate on CT (Acute) Insomnia (Acute) Annual physical exam (Acute) Medical History Ingrowing toenail (04/14/14) Hematuria unspeficified; asymptomatic; neg W/U Fatigue 06/26/12 Ingrown toenail 04/14/14 Urinary tract infectious disease recurrent Surgical History History of cataract surgery History of bladder repair surgery Status post laparoscopic hysterectomy H/O bladder repair surgery sling S/P laparoscopic hysterectomy 05/07/83 partial, dysmenorrhea Hysterectomy, Laproscopic (~1983) partial; dysmenorrhea Bladder Surgery (~1999) SLING Family History Mother , age 92 Dementia Father , age 78 Cancer Brother Asthma Brother ALS (amyotrophic lateral sclerosis) Brother No problems noted. Maternal Grandfather , age 50 Black lung disease Paternal Grandfather , age 65 Black lung disease Maternal Grandmother , age 80 No problems noted. Paternal Grandmother , age 84 No problems noted. Son No problems noted. Son No problems noted. Social History Smoking/Tobacco Use Status: Former Tobacco Use tobacco type: cigarettes Quit Date: 05/07/97 Tobacco: How many years used: 30 Second Hand Exposure: Yes Smoking risk assessment performed?: Yes Alcohol Intake: current Alcohol Intake frequency: holidays/special occasions only Drug use: Never Substance use type: does not use Household members: spouse Housing: house Communication Needs: None Do you need help understanding health information?: Often Pets and animals: No Sexually active: No Do you think of yourself as: straight/heterosexual Current gender identity: female What is your relationship status?: How often do you talk on the phone with friends or family?: three or more times per week How often do you get together with friends or relatives?: decline to answer How often do you attend buddhist or caodaism services?: 4 or more times per year Do you belong to any clubs or organized social groups?: yes Panel score (0-1 are the most socially isolated patients): 4 What type of physical activity do you participate in: walking, aerobic, bicy cling and swimming Duration: 30-45 minutes/day Frequency: 3-4 times per week Lorraine/Adventist: Evangelical Special lorraine needs: No Seatbelt use: always Helmet use: Yes Helmet use: always Drive intox or ride w/intox driver merchandiser: No Do you feel safe at home: Yes Do you feel safe in your relationship?: Yes Exam Narrative Exam Narrative: 1.Const: Well-nourished, Well-developed, appearing stated age 2.Eyes: PERRL, no conjunctival injection, and symmetrical lids. Scleral icterus present 3.ENT: Atraumatic external nose and ears. Moist MM. Neck: Symmetric, trachea midline, No thyromegaly. 4.CVS: +S1/S2, No murmurs or gallops. Peripheral pulses 2+ and equal in all extremities. Brisk capillary refill in all extremities. 5.RESP: Unlabored respiratory effort. Clear to auscultation bilaterally. No wheezes rales or rhonchi 6.GI: Soft, Nontender/Nondistended, No hepatosplenomegaly. No guarding or rebound. No pain at McBurney's point, negative Sierra sign. 7.MSK: Normocephalic/Atraumatic, Extremities w/o deformity or ttp No cyanosis or clubbing, Normal movement of all extremities. No asterixis 8.Skin: Warm, Dry. 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 Sensation grossly intact, no focal neurologic deficits. 10.Psych: (AAO) x3. Appropriate mood and affect Course Vital Signs Vital signs: Vital Signs Temperature 36.3 C L 03/08/23 14:55 Pulse 83 03/08/23 14:55 Respiratory Rate 15 03/08/23 14:55 Blood Pressure 149/75 H 03/08/23 14:55 Pulse Oximetry 98 03/08/23 14:55 Temperature 36.3 C L 03/08/23 14:55 Temperature Source Tympanic 03/08/23 14:55 Pulse 83 03/08/23 14:55 Respiratory Rate 15 03/08/23 15:00 Respiratory Effort Normal 03/08/23 15:00 Respiratory Depth Normal 03/08/23 15:00 Respiratory Pattern Normal 03/08/23 15:00 Blood Pressure 149/75 H 03/08/23 14:55 Blood Pressure Position Sitting 03/08/23 14:55 Pulse Oximetry 98 03/08/23 14:55 Oxygen Delivery Method Room Air 03/08/23 14:55 Oxygen Flow Rate 0 03/08/23 14:55 Pain Level 0 03/08/23 14:55
[2023-03-08] MEDS: Normal Saline 1,000 ML 1000 ML IV (15:25)
[2023-03-08 15:35] LABS: Ammonia 18 umol/L (11-32)
--- NOTE | 2023-03-08 15:37 | DI.MRI_ITS ---
Exam(s) MR ABDOMEN WO/W EXAM: MR ABDOMEN WO/W CLINICAL HISTORY: eval for biliary tree obstruction TECHNIQUE: Multiplanar multisequence MRI of the Abdomen was performed. CONTRAST MATERIAL: IV Contrast: 14 mL of Dotarem contrast administered. COMPARISON: CT CT ABDOMEN PELVIS WO/W from 03/07/[address] ABDOMEN PELVIS W from 03/08/2023 FINDINGS: Liver: Extreme fatty infiltration. Enlarged. Pancreas: Atrophic. Dilated proximal pancreatic duct. Gallbladder and Bile Ducts: No gallstones or gallbladder wall thickening. Common bile duct is dilate d down to the pancreatic head. No common duct stones are visible. No visible mass. Adrenals: Unremarkable. Kidneys: Unremarkable. Cyst lower pole right kidney. Spleen: Unremarkable. Aorta: Unremarkable. Soft Tissues: Unremarkable. Bone: Unremarkable. Lymph Nodes: Unremarkable. Bowel: 2 adjacent diverticula at the transverse duodenum. IMPRESSION: Abnormal dilatation of the common bile duct with abrupt tapering at the pancreatic head. No stone vi sible. No mass is visible but a small ampullary mass cannot be excluded on the basis of this exam. Findings called to Dr. Lafleur of the emergency department. DATA REPOSITORY:
[2023-03-08 15:47] LABS: Bilirubin, Direct 14.9 mg/dL (0.0-0.2)
[2023-03-08 15:50] LABS: INR 1.1 (0.9-1.1); PTT Activated 26.7 sec (23.6-32.8); Prothrombin Time 10.9 sec (9.1-11.1)
[2023-03-08] MEDS: Gadoterate meglumine 20 ML VIAL IVP (16:02)
[2023-03-08] MEDS: Normal Saline - Diluent 50 ML VIAL IV (16:04)
--- NOTE | 2023-03-08 16:07 | W.SURGCON ---
Date of service: 03/08/23 Time of Service: 16:07 [facility] All Active Problems Jaundice (Acute) Actinic keratosis (Chronic 11/13/17) Anxiety (Chronic) chronic benzodiazipine use 03/27/17 FLOR-7 SCORE=7 07/02/17 FLOR-7 SCORE=13 Diabetes mellitus (Chronic 12/23/12) Diverticulosis of colon without diverticulitis (Chronic) Generalized osteoarthrosis (Chronic) low back pain; xray + DJD Hypercholesterolemia (Chronic) Lichen planus (Chronic) mouth Right hip pain (Chronic 03/27/17) Hematuria (Acute) Neg work-up 2013. UA not meeting RBC in years since for repeat Fatigue (Acute 06/26/12) OAB (overactive bladder) (Acute) Insomnia (Acute) Osteoporosis (Chronic) Left foot pain (Acute) Hip pain (Acute) Ingrown nail (Acute) Cervical pain (neck) (Acute) Low back pain (Acute) Lung infiltrate on CT (Acute) Insomnia (Acute) Annual physical exam (Acute) Medical History Ingrowing toenail (04/14/14) Hematuria unspeficified; asymptomatic; neg W/U Fatigue 06/26/12 Ingrown toenail 04/14/14 Urinary tract infectious disease recurrent Surgical History History of cataract surgery History of bladder repair surgery Status post laparoscopic hysterectomy H/O bladder repair surgery sling S/P laparoscopic hysterectomy 05/07/83 partial, dysmenorrhea Hysterectomy, Laproscopic (~1983) partial; dysmenorrhea Bladder Surgery (~1999) SLING Family History Mother , age 92 Dementia Father , age 78 Cancer Brother Asthma Brother ALS (amyotrophic lateral sclerosis) Brother No problems noted. Maternal Grandfather , age 50 Black lung disease Paternal Grandfather , age 65 Black lung disease Maternal Grandmother , age 80 No problems noted. Paternal Grandmother , age 84 No problems noted. Son No problems noted. Son No problems noted. Social History Smoking/Tobacco Use Status: Former Tobacco Use tobacco type: cigarettes Quit Date: 05/07/97 Tobacco: How many years used: 30 Second Hand Exposure: Yes Smoking risk assessment performed?: Yes Alcohol Intake: current Alcohol Intake frequency: holidays/special occasions only Drug use: Never Substance use type: does not use Household members: spouse Housing: house Communication Needs: None Do you need help understanding health information?: Often Pets and animals: No Sexually active: No Do you think of yourself as: straight/heterosexual Current gender identity: female What is your relationship status?: How often do you talk on the phone with friends or family?: three or more times per week How often do you get together with friends or relatives?: decline to answer How often do you attend spiritism or restoration services?: 4 or more times per year Do you belong to any clubs or organized social groups?: yes Panel score (0-1 are the most socially isolated patients): 4 What type of physical activity do you participate in: walking, aerobic, bicycling and swimming Duration: 30-45 minutes/day Frequency: 3-4 times per week Lorraine/Orthodox: Sikh Special lorraine needs: No Seatbelt use: always Helmet use: Yes Helmet use: always Drive intox or ride w/intox coal tram driver: No Do you feel safe at home: Yes Do you feel safe in your relationship?: Yes Results Last Vital Signs Temp 97.3 F L 03/08/23 14:55 Pulse 83 03/08/23 14:55 Resp 15 03/08/23 15:00 BP 149/75 H 03/08/23 14:55 Pulse Ox 98 03/08/23 14:55 Labs Labs: Laboratory Results - last 24 hr 03/08/23 03/08/23 15:08 15:20 PT 10.9 INR 1.1 APTT 26.7 Conjugated Bilirubin 14.9 H Ammonia 18 Patient ABO/Rh A Positive Antibody Screen NEGATIVE
[2023-03-08 17:17] LABS: Source Nasal/Nares
--- NOTE | 2023-03-08 17:29 | DI.VRAD_ITS ---
PROCEDURE INFORMATION: Exam: MR Abdomen Without and With Contrast Exam date and time: 03/08/2023 3:56 PM Age: 78 years old Clinical indication: Other: Jaundice TECHNIQUE: Imaging protocol: Magnetic resonance imaging of the abdomen without and with contrast. Contrast material: DOTAREM; Contrast volume: 14 ml; Contrast route: INTRAVENOUS (IV); COMPARISON: CT ABDOMEN PELVIS W 03/08/2023 2:35 PM FINDINGS: Heart: Normal heart size. No pericardial effusion. Liver: No mass. Gallbladder and bile ducts: There is moderate intrahepatic biliary dilatation. The common hepatic duct is dilated to 12 mm. The distal common bile duct is 10 mm. No choledocholithiasis. There is an area of stricture like narrowing of the distal common bile duct measuring 16 mm. See coronal series 5001: Image 16. Possibility of a distal biliary ductal carcinoma can not be excluded. Differential diagnosis would include an ampullary lesion related to the duodenal. An endoscopic evaluation is recommended. Prominent gallbladder distention. No gallstones. No gallbladder wall thickening. Postcontrast axial images do show some enhancement at the distal common bile duct beyond the dilated segment. See axial series 27838: Images 54 through 59. Pancreas: There is pancreatic atrophy. There is pancreatic ductal dilatation. Pancreatic duct measuring up to 8 mm. Spleen: Spleen is unremarkable in appearance. Adrenal glands: Adrenal glands are unremarkable. Kidneys and ureters: Kidneys are unremarkable bilaterally. Benign-appearing right renal cyst. No further imaging follow-up is recommended. This is in the lower pole and measures 2 cm. Stomach and bowel: Gastric, large bowel and small bowel structures within the abdomen are unremarkable. Intraperitoneal space: No free fluid. Vasculature: Abdominal aorta is unremarkable. Inferior vena cava shows narrowing which could be related to dehydration or hypovolemia. Portal vein appears to have normal flow void. Hepatic veins appear to have normal flow void. Bones/joints: Unremarkable. Soft tissues: Unremarkable. IMPRESSION: 1. Intrahepatic biliary dilatation, extrahepatic biliary dilatation, gallbladder distention, and pancreatic ductal dilatation. 2. Concern for a distal common bile duct stricture or circumferential masslike process narrowing the lumen and causing biliary obstruction. ERCP evaluation is recommended if patient is a candidate. Differential diagnosis would include an intrinsic biliary neoplastic type process, benign stricture, or a lesion of the duodenal ampulla of Vater. A pancreatic head lesion is not definable, but is also a consideration. 3. Narrowing of the inferior vena cava concerning for dehydration/hypovolemia. Dictated and Authenticated by: Jesús Tilley MD. Ordering:ADAMS Carlin MD
[2023-03-08 17:48] LABS: COVID-19 PCR Negative (Negative)
[2023-03-08 18:09] VITALS: BP 137/72; PULSE 88; RESP 19; TEMP 36.9; O2SAT 97
[2023-03-08] MEDS: Insulin Aspart 300 UNITS/3 ML PEN SC (18:45)
[2023-03-08] MEDS: QUEtiapine 100 MG TAB PO (19:38)
[2023-03-08] MEDS: Normal Saline Flush 10 ML SYR IVP (19:39)
[2023-03-08] MEDS: Lactated Ringers 1,000 ML 100 ML IV (19:39)
[2023-03-08] MEDS: Losartan 50 MG TAB PO (22:07)
[2023-03-08] MEDS: clonazePAM 1 MG TAB PO (22:07)
[2023-03-08] MEDS: Nystatin POWDER 15 GM JAR TP (22:08)
[2023-03-08] MEDS: Insulin Aspart 300 UNITS/3 ML PEN 12 UNITS SC (22:09)
[2023-03-08] MEDS: Insulin Glargine 300 UNITS/3 ML PEN 20 UNITS SC (22:09)
[2023-03-08 22:39] LABS: Osmolality Serum 296 mOsm/kg (275-295)
[2023-03-09 00:12] VITALS: BP 108/71; PULSE 84; RESP 16; TEMP 36.2; O2SAT 92
[2023-03-09 00:33] LABS: Bilirubin Large (Negative); Blood Trace-lysed (Negative); Clarity Clear (Clear); Glucose >=1000 mg/dL (Negative); Ketones Negative (Negative); Leukocyte Esterase Negative (Negative); Nitrite Negative (Negative); Urobilinogen 0.2 mg/dL (Up to 0.2); pH 5.5 (5-8)
[2023-03-09 00:39] LABS: Bacteria Rare HPF (Negative); C & S Indicated? No; Casts Negative LPF (Negative); Crystals Negative HPF (Negative); Epithelial Cells Rare HPF (Negative); Mucus Negative (Negative); WBC Negative HPF (0-5)
[2023-03-09] MEDS: Lactated Ringers 1,000 ML 100 ML IV ×2 (04:47→15:43)
[2023-03-09 07:35] VITALS: BP 114/65; PULSE 87; RESP 18; TEMP 36.3; O2SAT 94
[2023-03-09] MEDS: Insulin Aspart 300 UNITS/3 ML PEN SC ×3 (08:37→16:54)
[2023-03-09] MEDS: QUEtiapine 100 MG TAB PO (08:43)
[2023-03-09] MEDS: Venlafaxine 75 MG CAPCR 150 MG PO (08:44)
[2023-03-09] MEDS: Mirabegron 50 MG TABCR PO (09:26)
[2023-03-09 10:23] LABS: Hepatitis A Antibody IgM Negative (Negative); Hepatitis B Core Antibody Negative (Negative); Hepatitis B surface Ag Negative (Negative); Hepatitis C Ab w Rflx HCV PCR Negative (Negative)
[2023-03-09 11:01] LABS: Abs Immature Grans 0.08 10^3/uL (0.0-0.06); Absolute Basophil Count 0.06 10^3/uL (0.0-0.2); Absolute Eosinophil Count 0.31 10^3/uL (0.0-0.7); Absolute Lymphocyte Count 1.29 10^3/uL (1.2-3.4); Absolute Monocyte Count 0.37 10^3/uL (0.1-0.8); Absolute Neutrophil Count 5.36 10^3/uL (1.2-6.7); Basophils % 0.8; Eosinophils % 4.1; HCT 32.2 % (36.0-46.0); HGB 10.6 g/dL (11.2-15.7); Immature Grans % 1.1; Lymphocytes % 17.3; MCH 27.6 pg (27.0-33.0); MCHC 32.9 % (32.0-36.0); MCV 84 fL (80-95); Neutrophils % 71.7; RBC 3.84 10^6/uL (3.93-5.22); RDW-SD 45.5 fL; WBC 7.47 10^3/uL (4.4-10.8)
[2023-03-09 11:07] LABS: INR 1.1 (0.9-1.1); Prothrombin Time 10.6 sec (9.1-11.1)
[2023-03-09 11:16] LABS: Platelet Count 15 10^3/uL (130-400)
[2023-03-09 11:17] LABS: Diff Comment Diff Reviewed; RBC Morphology Normal
[2023-03-09 11:22] LABS: ALT 451 U/L (14-59); AST 359 U/L (15-37); Albumin 2.2 g/dL (3.4-5.0); Anion Gap 7.6 mmol/L (3-11); BUN 10 mg/dL (7-18); CO2 25.4 mmol/L (21.0-32.0); CREATININE 0.6 mg/dL (0.55-1.02); Calcium 8.8 mg/dL (8.5-10.1); Chloride 95 mmol/L (98-107); Estimated GFR 91.25 (mL/min/1.73m2); Glucose 282 mg/dL (74-106); Potassium 3.5 mmol/L (3.5-5.1); Sodium 128 mmol/L (136-145)
[2023-03-09 11:25] LABS: Alkaline Phosphatase 1220 U/L (46-116)
[2023-03-09 11:26] LABS: Bilirubin, Total 15.3 mg/dL (0.2-1.0)
--- NOTE | 2023-03-09 13:33 | PGE_ITS ---
Date of Service Date of service: 03/09/23 Time of Service: 13:33 Assessment and Plan Assessment and plan (1) Jaundice: Status: Acute Assessment and plan: Patient referred by PCP for jaundice, no stone, increase intra and extra hepatic bile duct size, questioning malignancy: ERCP and pancreas biopsy[place] [facility] [place] [facility] [place] Scleral icterus persists, without abdominal pain or right upper quadrant pain [facility] , DR. Gomes,called for ERCP: Unable to accomodate and wary of thrombocytopenia and procedures such as pancreas biopsy and ERCP: Recommends working out the thrombocytopenia and outpatient ERCP [facility] ,Dr. Reynoso, emitted similar recommendations (2) Hyperbilirubinemia: Status: Acute Assessment and plan: As above (3) Thrombocytopenia: Status: Chronic Assessment and plan: Platelets 15 today and qualifying patient for severe thrombocytopenia H&H 12.5/38.7 on 03/08, today 10.6/32.2, considering dilution, no acute bleeding stool for occult blood pending, UA pending hematology at [facility], Dr. Landrum consulted as per Dr. Gomes from [place] [facility] [place] are unable to accommodate the patient Re: no bed for this level of care but recommends to work-up the thrombocytooenia If acute bleeding will transfuse platelets: H&H this PM pending, stools guaic and UA If febrile with paltelets< 10 : transfuse IF afebrile and no bleeding: transfuse for platelets 5 Also recommended Hepatitis pannel (done 03/08), HIV, LDH and fibribogen with <150 to transfuse cryoprecipitate If everything is rule out and ITP is suspected : Treat with dexametasone 40 mg PO daily X 4 days Then diagnostic testing ERCP and pancreas biopsy postponed due to low platelets and no capacity at tertiary facilities Hepatitis pannel, HIV, LDH, fibrinogen :pending : DIC vs ITP (4) Transaminitis: Status: Acute Assessment and plan: As above (5) Diabetes mellitus: Status: Chronic Assessment and plan: Glucose fingersticks AC and HS with sliding scale insulin coverage, resistant scale Stop semiglutide Hold Glipizide (6) Contraindication to deep vein thrombosis (DVT) prophylaxis: Status: Acute Assessment and plan: Platelets were 25 on 03/08 and are 15 today, no pharmacological therapy but TEDS ordered (7) Hyponatremia: Status: Acute Assessment and plan: Na was 128 today from 124, LR at 100cc/hr , BMP in AM (8) Discharge planning issues: Status: Acute Assessment and plan: No discharge needs but CM will f/u Considering ERCP and biopsy of the pancreas as and out patient. Subjective Subjective Patient reports: no new complaints, feels better, tolerating liquids well, tolerating a regular diet, voiding w/o difficulty, flatus, bowel movement, shortness of breath and afebrile; denies diarrhea, nausea, vomiting or fever Exam Narrative Exam Narrative: Constitutional The patient is lying in bed comfortable and cooperative during the interview. The patient is well groomed without acute distress and has average body habitus. HENMT: Head is atraumatic, normocephalic. Facial structures with normal appearance, skin and sclera are jaundiced. Eyes: Well aligned, intact ROM Neck: Normal ROM, no meningeal signs Neuro:alert and oriented to self, person, place, time and situation. No neurological focal deficit, PERRLA Chest:Chest is symmetrical and normal appearance Resp: Normal respiratory pattern, speaks in full sentences, unlabored breathing, clear lung bilaterally Cardio: regular rhythm, S1, S2, no murmur, capillary refill<3 sec., bilateral radial and dorsalis pedis pulses are positive, palpable GI: Abdomen is not distended, soft and non tender, bowel sounds are present : no bladder distension Back/spine/Pelvis: No back tenderness, normal alignment Integumentary: No skin lesions, petichia, purpura or rash, positive jaundice Extremities: strength 5/5 to bilateral lower and upper extremities Psych: RASS 0, congruent mood and normal affect. Objective Last Vital Signs Temp 36.3 C L 03/09/23 07:35 Pulse 87 03/09/23 07:35 Resp 18 03/09/23 07:35 BP 114/65 03/09/23 07:35 Pulse Ox 94 03/09/23 07:35 Laboratory Results - last 24 hr 03/08/23 03/08/23 03/08/23 15:08 15:20 15:47 WBC RBC Hgb Hct MCV MCH MCHC RDW Plt Count MPV Immature Gran % Neutrophils % Lymphocytes % Monocytes % Eosinophils % Basophils % Nucleated RBC % Absolute Neutrophils Absolute Lymphocytes Absolute Monocytes Absolute Eosinophils Absolute Basophils RBC Morphology PT 10.9 INR 1.1 APTT 26.7 Sodium Potassium Chloride Carbon Dioxide Anion Gap BUN Creatinine Est GFR (CKD-EPI 2020) Glucose Serum Osmolality 296 H Calcium Total Bilirubin Conjugated Bilirubin 14.9 H AST ALT Alkaline Phosphatase Ammonia 18 Total Protein Albumin Urine Color Urine Clarity Urine pH Ur Specific [place] Urine Protein Urine Ketones Urine Blood Urine Nitrite Urine Bilirubin Urine Urobilinogen Ur Leukocyte Esterase Urine RBC Urine WBC Ur Epithelial Cells Urine Crystals Urine Bacteria Urine Casts Urine Mucus Ur Culture Indicated? Urine Osmolality Cancelled Ur Random Sodium Cancelled Ur Random Potassium Cancelled Ur Random Chloride Cancelled Urine Glucose COVID-19 Source SARS-CoV-2 (PCR) Hepatitis A IgM Ab Negative Hep Bs Antigen Negative Hep B Core Total Ab Negative Hepatitis C Antibody Negative Patient ABO/Rh A Positive Antibody Screen NEGATIVE 03/08/23 03/09/23 03/09/23 17:10 00:15 10:25 WBC 7.47 RBC 3.84 L Hgb 10.6 L Hct 32.2 L MCV 84 MCH 27.6 MCHC 32.9 RDW 15.0 H Plt Count 15 L* MPV Immature Gran % 1.1 Neutrophils % 71.7 Lymphocytes % 17.3 Monocytes % 5.0 Eosinophils % 4.1 Basophils % 0.8 Nucleated RBC % 0.0 Absolute Neutrophils 5.36 Absolute Lymphocytes 1.29 Absolute Monocytes 0.37 Absolute Eosinophils 0.31 Absolute Basophils 0.06 RBC Morphology Normal PT 10.6 INR 1.1 APTT Sodium 128 L Potassium 3.5 Chloride 95 L Carbon Dioxide 25.4 Anion Gap 7.6 BUN 10 Creatinine 0.6 Est GFR (CKD-EPI 2020) 91.25 Glucose 282 H Serum Osmolality Calcium 8.8 Total Bilirubin 15.3 H Conjugated Bilirubin AST 359 H ALT 451 H Alkaline Phosphatase 1220 H Ammonia Total Protein 6.0 L Albumin 2.2 L Urine Color Yellow Urine Clarity Clear Urine pH 5.5 Ur Specific [place] 1.010 Urine Protein Trace H Urine Ketones Negative Urine Blood Trace-lysed H Urine Nitrite Negative Urine Bilirubin Large H Urine Urobilinogen 0.2 Ur Leukocyte Esterase Negative Urine RBC 5-10 H Urine WBC Negative Ur Epithelial Cells Rare Urine Crystals Negative Urine Bacteria Rare Urine Casts Negative Urine Mucus Negative Ur Culture Indicated? No Urine Osmolality Ur Random Sodium Ur Random Potassium Ur Random Chloride Urine Glucose >=1000 H COVID-19 Source Nasal/Nares SARS-CoV-2 (PCR) Negative Hepatitis A IgM Ab Hep Bs Antigen Hep B Core Total Ab Hepatitis C Antibody Patient ABO/Rh Antibody Screen Time Spent with Patient Time Spent with Patient: >50 minutes Time was spent: preparing to see the patient(eg.review tests), ordering medications,tests, procedures, referring, communicating with other health home health care physician, indepentently interpreting results, counseling the patient and care coordination
--- NOTE | 2023-03-09 13:33 | W.PM.DS.N ---
Date of service: 03/09/23 Time of Service: 13:34 Discharge Plan Discharge Details Reason For Visit: liver failure Admit Date/Time: 03/08/23 15:36 Admit Provider: Alexandre Pope Attending Provider: Alexandre Pope Primary Care Provider: Sarah Weldon Home Meds and New Rx's Prescriptions: No Action triamcinolone acetonide 0.1 % cream 1 applic TP DAILY PRN polyethylene glycol 3350 [Miralax] 17 gram/dose powder 17 g PO DAILY Myrbetriq 50 mg tablet extended release 24 hr 50 mg PO DAILY Qty: 90 3RF methenamine hippurate 1 gram tablet 1 g PO BID Qty: 180 3RF simvastatin 10 mg tablet 10 mg PO pm Qty: 90 3RF glipizide 10 mg tablet extended release 24hr 10 mg PO BID Qty: 180 3RF Ozempic 0.25 mg or 0.5 mg (2 mg/3 mL) pen injector 0.5 mg subcut QWEEK Qty: 9 3RF multivitamin with minerals 1 EACH tablet 1 ea PO DAILY nystatin 100,000 unit/gram powder 1 applic topical BID Qty: 60 4RF hydrocortisone [Procto-Med HC] 2.5 % cream with perineal applicator 1 applic KY QD-BID PRN (Reason: itching) Qty: 30 2RF melatonin 5 mg capsule 5 mg PO HS Rx Instructions: Takes 1-2 gummies HS, PRN venlafaxine 75 mg capsule,extended release 24hr 150 mg PO DAILY Qty: 60 11RF quetiapine 100 mg tablet 100 mg PO BID Qty: 180 3RF (DME) pen needle, diabetic [BD Ultra-Fine Mini Pen Needle] 31 gauge x 3/16 needle See Rx Instructions .ROUTE .MEDSUPPLY Qty: 90 4RF Rx Instructions: Daily E11.9 clonazepam 1 mg tablet 1 mg PO BID Qty: 180 2RF Rx Instructions: losartan 50 mg tablet 50 mg PO HS DS: Data Vitals/I&O Vitals and I&O: Vital Signs Temperature 36.3 C L 03/09/23 07:35 Temperature Source Tympanic 03/09/23 07:35 Pulse 87 03/09/23 07:35 Pulse Rhythm Regular 03/09/23 08:45 Respiratory Rate 18 03/09/23 07:35 Respiratory Effort Normal, Non-Labored 03/09/23 08:45 Respiratory Depth Normal 03/09/23 08:45 Respiratory Pattern Normal 03/09/23 08:45 Blood Pressure 114/65 03/09/23 07:35 Blood Pressure Position Sitting 03/08/23 14:55 Pulse Oximetry 94 03/09/23 07:35 Oxygen Delivery Method Room Air 03/09/23 07:35 Oxygen Flow Rate 0 03/09/23 07:35 Pain Level 0 03/09/23 07:35 Intake & Output 03/08/23 03/09/23 03/09/23 23:59 11:59 23:59 Intake Total 1000 / 1000 1153.333 / 1153.333 Output Total 200 / 200 1400 / 1400 Balance 800 / 800 -246.667 / -246.667 Weight 68.2 kg Intake: IV 1000 / 1000 913.333 / 913.333 Oral 240 / 240 Output: Urine 200 / 200 1400 / 1400 Other: Urine Color Yellow Dark Jodie Urine Appearance Clear Clear Urine Odor Normal Foul Voiding Methods Bedside Commode Data Completed and Pending Labs on day of discharge: Labs from last 24 hours 03/09/23 03/09/23 03/09/23 11:53 10:25 00:15 WBC 7.47 RBC 3.84 L Hgb 10.6 L Hct 32.2 L MCV 84 MCH 27.6 MCHC 32.9 RDW 15.0 H Plt Count 15 L* MPV Immature Gran % 1.1 Neutrophils % 71.7 Lymphocytes % 17.3 Monocytes % 5.0 Eosinophils % 4.1 Basophils % 0.8 Nucleated RBC % 0.0 Absolute Neutrophils 5.36 Absolute Lymphocytes 1.29 Absolute Monocytes 0.37 Absolute Eosinophils 0.31 Absolute Basophils 0.06 RBC Morphology Normal PT 10.6 INR 1.1 APTT Sodium 128 L Potassium 3.5 Chloride 95 L Carbon Dioxide 25.4 Anion Gap 7.6 BUN 10 Creatinine 0.6 Est GFR (CKD-EPI 2020) 91.25 Glucose 282 H Serum Osmolality Calcium 8.8 Total Bilirubin 15.3 H Conjugated Bilirubin AST 359 H ALT 451 H Alkaline Phosphatase 1220 H Ammonia Total Protein 6.0 L Albumin 2.2 L CA 19-9 Antigen Pending Urine Color Yellow Urine Clarity Clear Urine pH 5.5 Ur Specific [place] 1.010 Urine Protein Trace H Urine Ketones Negative Urine Blood Trace-lysed H Urine Nitrite Negative Urine Bilirubin Large H Urine Urobilinogen 0.2 Ur Leukocyte Esterase Negative Urine RBC 5-10 H Urine WBC Negative Ur Epithelial Cells Rare Urine Crystals Negative Urine Bacteria Rare Urine Casts Negative Urine Mucus Negative Ur Culture Indicated? No Urine Osmolality Ur Random Sodium Ur Random Potassium Ur Random Chloride Urine Glucose >=1000 H COVID-19 Source SARS-CoV-2 (PCR) Hepatitis A IgM Ab Hep Bs Antigen Hep B Core Total Ab Hepatitis C Antibody Patient ABO/Rh Antibody Screen 03/08/23 03/08/23 03/08/23 17:10 15:47 15:20 WBC RBC Hgb Hct MCV MCH MCHC RDW Plt Count MPV Immature Gran % Neutrophils % Lymphocytes % Monocytes % Eosinophils % Basophils % Nucleated RBC % Absolute Neutrophils Absolute Lymphocytes Absolute Monocytes Absolute Eosinophils Absolute Basophils RBC Morphology PT 10.9 INR 1.1 APTT 26.7 Sodium Potassium Chloride Carbon Dioxide Anion Gap BUN Creatinine Est GFR (CKD-EPI 2020) Glucose Serum Osmolality 296 H Calcium Total Bilirubin Conjugated Bilirubin 14.9 H AST ALT Alkaline Phosphatase Ammonia Total Protein Albumin CA 19-9 Antigen Urine Color Urine Clarity Urine pH Ur Specific [place] Urine Protein Urine Ketones Urine Blood Urine Nitrite Urine Bilirubin Urine Urobilinogen Ur Leukocyte Esterase Urine RBC Urine WBC Ur Epithelial Cells Urine Crystals Urine Bacteria Urine Casts Urine Mucus Ur Culture Indicated? Urine Osmolality Cancelled Ur Random Sodium Cancelled Ur Random Potassium Cancelled Ur Random Chloride Cancelled Urine Glucose COVID-19 Source Nasal/Nares SARS-CoV-2 (PCR) Negative Hepatitis A IgM Ab Negative Hep Bs Antigen Negative Hep B Core Total Ab Negative Hepatitis C Antibody Negative Patient ABO/Rh A Positive Antibody Screen NEGATIVE 03/08/23 15:08 WBC RBC Hgb Hct MCV MCH MCHC RDW Plt Count MPV Immature Gran % Neutrophils % Lymphocytes % Monocytes % Eosinophils % Basophils % Nucleated RBC % Absolute Neutrophils Absolute Lymphocytes Absolute Monocytes Absolute Eosinophils Absolute Basophils RBC Morphology PT INR APTT Sodium Potassium Chloride Carbon Dioxide Anion Gap BUN Creatinine Est GFR (CKD-EPI 2020) Glucose Serum Osmolality Calcium Total Bilirubin Conjugated Bilirubin AST ALT Alkaline Phosphatase Ammonia 18 Total Protein Albumin CA 19-9 Antigen Urine Color Urine Clarity Urine pH Ur Specific [place] Urine Protein Urine Ketones Urine Blood Urine Nitrite Urine Bilirubin Urine Urobilinogen Ur Leukocyte Esterase Urine RBC Urine WBC Ur Epithelial Cells Urine Crystals Urine Bacteria Urine Casts Urine Mucus Ur Culture Indicated? Urine Osmolality Ur Random Sodium Ur Random Potassium Ur Random Chloride Urine Glucose COVID-19 Source SARS-CoV-2 (PCR) Hepatitis A IgM Ab Hep Bs Antigen Hep B Core Total Ab Hepatitis C Antibody Patient ABO/Rh Antibody Screen PFSH All Active Problems (Updated 03/08/23 @ 17:01 by Tesfaye Lafleur DO) Thrombocytopenia (Chronic) Transaminitis (Acute) Jaundice (Acute) Actinic keratosis (Chronic 11/13/17) Anxiety (Chronic) chronic benzodiazipine use 03/27/17 FLOR-7 SCORE=7 07/02/17 FLOR-7 SCORE=13 Diabetes mellitus (Chronic 12/23/12) Diverticulosis of colon without diverticulitis (Chronic) Generalized osteoarthrosis (Chronic) low back pain; xray + DJD Hypercholesterolemia (Chronic) Lichen planus (Chronic) mouth Right hip pain (Chronic 03/27/17) Hematuria (Acute) Neg work-up 2013. UA not meeting RBC in years since for repeat Fatigue (Acute 06/26/12) OAB (overactive bladder) (Acute) Insomnia (Acute) Osteoporosis (Chronic) Left foot pain (Acute) Hip pain (Acute) Ingrown nail (Acute) Cervical pain (neck) (Acute) Low back pain (Acute) Lung infiltrate on CT (Acute) Insomnia (Acute) Annual physical exam (Acute) Medical History Ingrowing toenail (04/14/14) Hematuria unspeficified; asymptomatic; neg W/U Fatigue 06/26/12 Ingrown toenail 04/14/14 Urinary tract infectious disease recurrent Surgical History History of cataract surgery History of bladder repair surgery Status post laparoscopic hysterectomy H/O bladder repair surgery sling S/P laparoscopic hysterectomy 05/07/83 partial, dysmenorrhea Hysterectomy, Laproscopic (~1983) partial; dysmenorrhea Bladder Surgery (~1999) SLING Family History Mother , age 92 Dementia Father , age 78 Cancer Brother Asthma Brother ALS (amyotrophic lateral sclerosis) Brother No problems noted. Maternal Grandfather , age 50 Black lung disease Paternal Grandfather , age 65 Black lung disease Maternal Grandmother , age 80 No problems noted. Paternal Grandmother , age 84 No problems noted. Son No problems noted. Son No problems noted. Social History Smoking/Tobacco Use Status: Former Tobacco Use tobacco type: cigarettes Quit Date: 05/07/97 Tobacco: How many years used: 30 Second Hand Exposure: Yes Smoking risk assessment performed?: Yes Alcohol Intake: current Alcohol Intake frequency: holidays/special occasions only Drug use: Never Substance use type: does not use Household members: spouse Housing: house Communication Needs: None Do you need help understanding health information?: Often Pets and animals: No Sexually active: No Do you think of yourself as: straight/heterosexual Current gender identity: female What is your relationship status?: How often do you talk on the phone with friends or family?: three or more times per week How often do you get together with friends or relatives?: decline to answer How often do you attend mormonism or druze services?: 4 or more times per year Do you belong to any clubs or organized social groups?: yes Panel score (0-1 are the most socially isolated patients): 4 What type of physical activity do you participate in: walking, aerobic, bicycling and swimming Duration: 30-45 minutes/day Frequency: 3-4 times per week Lorraine/Baptist: Restorationist Special lorraine needs: No Seatbelt use: always Helmet use: Yes Helmet use: always Drive intox or ride w/intox truck driver: No Do you feel safe at home: Yes Do you feel safe in your relationship?: Yes
[2023-03-09 15:37] VITALS: BP 134/77; PULSE 77; RESP 19; TEMP 36.7; O2SAT 94
[2023-03-09 16:12] LABS: LDH 276 U/L (81-234)
--- NOTE | 2023-03-09 16:24 | CHAPLAIN ---
Verenice was resting in bed when I visited. She told me she may be going to [facility] because of her jaundice. She's having her son, who has a medical background, speak with the hospitalist. Verenice's had visited, but she said he didn't need to wait with while she was finding out what happening next. I explained my role and offered support.
--- NOTE | 2023-03-09 17:23 | INITIAL_ITS ---
Date of service: 03/09/23 Time of Service: 17:23 Care Management Initial Assmt Initial Assessment REASON FOR HOSPITALIZATION:: Liver failure PREVIOUS FUNCTIONAL STATUS/SOCIAL/FAMILY SUPPORTS:: Tina lives in [place] with her , Raman. They have two adult sons, Serjio and Georgi, and four grandchildren, all of whom she is very proud. Her family is very supportive of her. Tina is independent and active at baseline in the community. CURRENT FUNCTIONAL STATUS:: Tina was sitting up in her chair when CM met with her. She was pleasant and conversant, mostly talking about the achievements of her children and grandchildren. She stated that per provider, she may be transferred to [facility] for an ERCP and biopsy. If she is not accepted for transfer, she will likely be discharged home with a referral to have the ERCP/biopsy out patient. She expressed clear understanding of this plan, and is agreeable to either. CM will continue to follow. ADVANCE DIRECTIVES:: On file; Raman listed as HCA; her sons are listed as co alternate agents. Has patient been provided with info about the portal/API?: Yes Did the patient sign up for the portal?: Yes CODE STATUS:: Full Code INSURANCE COVERAGE / FINANCIAL ISSUES:: [employer] CURRENT HOME/COMMUNITY SERVICES/EQUIPMENT:: None PRIMARY CARE PHYSICIAN:: Sarah Weldon POTENTIAL DISCHARGE NEEDS:: Evaluations for further needs, follow up appointments. PATIENT/FAMILY EDUCATION NEEDS:: Review discharge instructions and limitations, discussion of self care needs including ask me three. ANTICIPATED BARRIERS TO DISCHARGE:: None TRANSPORTATION:: via EMS if transferred; via private vehicle if d/c home PLAN:: Anticipate Tina will transfer to a tertiary facility vs home with outpatient follow up. If transferred, RN delivery room supervisor will coordinate EMS transportation. If she is medically cleared to return home, her will drive her home via private vehicle. She will follow up with her PCP and discharge plan of care. CM will continue to follow. PFSH All Active Problems (Updated 03/08/23 @ 17:01 by Tesfaye Lafleur DO) Thrombocytopenia (Chronic) Transaminitis (Acute) Jaundice (Acute) Actinic keratosis (Chronic 11/13/17) Anxiety (Chronic) chronic benzodiazipine use 03/27/17 FLOR-7 SCORE=7 07/02/17 FLOR-7 SCORE=13 Diabetes mellitus (Chronic 12/23/12) Diverticulosis of colon without diverticulitis (Chronic) Generalized osteoarthrosis (Chronic) low back pain; xray + DJD Hypercholesterolemia (Chronic) Lichen planus (Chronic) mouth Right hip pain (Chronic 03/27/17) Hematuria (Acute) Neg work-up 2013. UA not meeting RBC in years since for repeat Fatigue (Acute 06/26/12) OAB (overactive bladder) (Acute) Insomnia (Acute) Osteoporosis (Chronic) Left foot pain (Acute) Hip pain (Acute) Ingrown nail (Acute) Cervical pain (neck) (Acute) Low back pain (Acute) Lung infiltrate on CT (Acute) Insomnia (Acute) Annual physical exam (Acute) Medical History Ingrowing toenail (04/14/14) Hematuria unspeficified; asymptomatic; neg W/U Fatigue 06/26/12 Ingrown toenail 04/14/14 Urinary tract infectious disease recurrent Surgical History History of cataract surgery History of bladder repair surgery Status post laparoscopic hysterectomy H/O bladder repair surgery sling S/P laparoscopic hysterectomy 05/07/83 partial, dysmenorrhea Hysterectomy, Laproscopic (~1983) partial; dysmenorrhea Bladder Surgery (~1999) SLING Family History Mother , age 92 Dementia Father , age 78 Cancer Brother Asthma Brother ALS (amyotrophic lateral sclerosis) Brother No problems noted. Maternal Grandfather , age 50 Black lung disease Paternal Grandfather , age 65 Black lung disease Maternal Grandmother , age 80 No problems noted. Paternal Grandmother , age 84 No problems noted. Son No problems noted. Son No problems noted. Social History Smoking/Tobacco Use Status: Former Tobacco Use tobacco type: cigarettes Quit Date: 05/07/97 Tobacco: How many years used: 30 Second Hand Exposure: Yes Smoking risk assessment performed?: Yes Alcohol Intake: current Alcohol Intake frequency: holidays/special occasions only Drug use: Never Substance use type: does not use Household members: spouse Housing: house Communication Needs: None Do you need help understanding health information?: Often Pets and animals: No Sexually active: No Do you think of yourself as: straight/heterosexual Current gender identity: female What is your relationship status?: How often do you talk on the phone with friends or family?: three or more times per week How often do you get together with friends or relatives?: decline to answer How often do you attend buddhism or zoroastrianism services?: 4 or more times per year Do you belong to any clubs or organized social groups?: yes Panel score (0-1 are the most socially isolated patients): 4 What type of physical activity do you participate in: walking, aerobic, bicycling and swimming Duration: 30-45 minutes/day Frequency: 3-4 times per week Lorraine/Yazdanism: Restorationist Special lorraine needs: No Seatbelt use: always Helmet use: Yes Helmet use: always Drive intox or ride w/intox tractor sweeper driver: No Do you feel safe at home: Yes Do you feel safe in your relationship?: Yes
[2023-03-09 18:18] LABS: HCT 31.9 % (36.0-46.0); HGB 10.3 g/dL (11.2-15.7)
[2023-03-09 19:40] LABS: HCT 30.5 % (36.0-46.0); HGB 10.2 g/dL (11.2-15.7)
[2023-03-09] MEDS: Insulin Glargine 300 UNITS/3 ML PEN 20 UNITS SC (22:41)
[2023-03-09 22:54] VITALS: BP 165/75; PULSE 78; RESP 19; TEMP 37; O2SAT 93
[2023-03-09] MEDS: LORazepam 2 MG/ML VIAL 0.5 MG IVP (23:33)
[2023-03-09] MEDS: Pantoprazole 40 MG VIAL IVP (23:34)
[2023-03-09] MEDS: Normal Saline Flush 10 ML SYR IVP (23:34)
[2023-03-10] VITALS (21 sets, daily range): BP systolic 137–166; BP diastolic 62–84; PULSE 67–100; RESP 16–25; TEMP 36–37.1; O2SAT 92–96
[2023-03-10] MEDS: Lactated Ringers 1,000 ML 100 ML IV (02:24)
[2023-03-10 06:50] LABS: Absolute Basophil Count 0.05 10^3/uL (0.0-0.2); Absolute Monocyte Count 0.47 10^3/uL (0.1-0.8); Absolute Neutrophil Count 5.52 10^3/uL (1.2-6.7); Basophils % 0.7; Eosinophils % 2.6; HCT 30.8 % (36.0-46.0); HGB 10.3 g/dL (11.2-15.7); Immature Grans % 1.3; MCH 27.5 pg (27.0-33.0); MCHC 33.4 % (32.0-36.0); MCV 82 fL (80-95); Monocytes % 6.2; Neutrophils % 72.2; RBC 3.74 10^6/uL (3.93-5.22); RDW 14.7 % (11.7-14.6); RDW-SD 44.7 fL; WBC 7.64 10^3/uL (4.4-10.8)
[2023-03-10 07:01] LABS: INR 1.1 (0.9-1.1); PTT Activated 28.3 sec (23.6-32.8)
[2023-03-10 07:08] LABS: Platelet Count 16 10^3/uL (130-400)
[2023-03-10 07:09] LABS: Anion Gap 10.1 mmol/L (3-11); BUN 5 mg/dL (7-18); CO2 25.9 mmol/L (21.0-32.0); CREATININE 0.5 mg/dL (0.55-1.02); Chloride 95 mmol/L (98-107); Estimated GFR 95.35 (mL/min/1.73m2); Glucose 163 mg/dL (74-106); Magnesium 1.7 mg/dL (1.8-2.4); Microcytosis 1+; Sodium 131 mmol/L (136-145)
[2023-03-10 07:14] LABS: Prothrombin Time 10.7 sec (9.1-11.1)
[2023-03-10 07:22] LABS: Calcium 8.6 mg/dL (8.5-10.1)
[2023-03-10 07:29] LABS: Lab Add On Test DONE
[2023-03-10 07:58] LABS: ALT 450 U/L (14-59); AST 375 U/L (15-37); Albumin 2.2 g/dL (3.4-5.0); Bilirubin, Direct 13.2 mg/dL (0.0-0.2); Total Protein 5.9 g/dL (6.4-8.2)
[2023-03-10 08:01] LABS: Alkaline Phosphatase 1289 U/L (46-116); Bilirubin, Total 15.9 mg/dL (0.2-1.0)
[2023-03-10] MEDS: MAGNESIUM SULFATE 2 GM/50 ML BAG IVPB (10:26)
--- NOTE | 2023-03-10 10:26 | W.PM.HP.N ---
Date of service: 03/08/23 Time of Service: 17:30 Assessment and Plan Assessment and plan (1) Liver failure, acute: Status: Acute Assessment and plan: found to suddenly have painless jaundice. CT scan shows no evidence of clear obstructive focus, however there is gallbladder dilatation and biliary ductal dilatation. Concern for potential mass at ampulla, however no visualization of this is noted. MRCP pending. Discussed was case with general surgeon Dr. Munoz who is in agreement with plan. place heptotoxic drugs on hold will need urgent GI referral, awaiting MRCP monitor closely for pain/fever (2) Thrombocytopenia: Status: Acute Assessment and plan: monitor for bleeding, thought possibly associated with liver dysfunction/cause of liver dysfunction. (3) Diabetes mellitus: Status: Chronic Assessment and plan: diabetic diet, sliding scale coverage as needed (4) Contraindication to deep vein thrombosis (DVT) prophylaxis: Status: Acute Assessment and plan: plt count 25, at high risk for bleeding, no chemical prophylaxis teds and scds only (5) Discharge planning issues: Status: Deleted Assessment and plan: will need further work up, if unable to transfer and stable, consider outpatient discussed with Dr Pope History of Present Illness History of Present Illness Chief Complaint: jaundice Narrative: This is a 78-year-old female with a past medical history of diabetes mellitus, high cholesterol, osteoarthritis, who presented to the ED for electrolyte abnormality and thrombocytopenia and jaundice. Patient has no complaints. She was seen at her primary care providers office and sent here for evaluation of painless jaundice. Work up in the ED included a CT scan that showed no evidence of clear obstructive focus, however there is gallbladder dilatation and biliary ductal dilatation. Concern for potential mass at ampulla. Case was discussed with DR Munoz from general surgery who recommends MRCP. Case was discussed with hospitalist services who accepts for further evaluation. Review of Systems All systems reviewed & are unremarkable except as noted in HPI and below PFSH All Active Problems (Updated 03/11/23 @ 00:04 by VISHAL GUPTA) Hypomagnesemia (Acute) Hypokalemia (Acute) Painless jaundice (Acute) Hypertension (Chronic) Acute on chronic anemia (Acute) Hematemesis (Acute) Liver failure, acute (Acute) Hyponatremia (Acute) Contraindication to deep vein thrombosis (DVT) prophylaxis (Acute) Hyperbilirubinemia (Acute) Thrombocytopenia (Acute) Transaminitis (Acute) Jaundice (Acute) Actinic keratosis (Chronic 11/13/17) Anxiety (Chronic) chronic benzodiazipine use 03/27/17 FLOR-7 SCORE=7 07/02/17 FLOR-7 SCORE=13 Diabetes mellitus (Chronic 12/23/12) Diverticulosis of colon without diverticulitis (Chronic) Generalized osteoarthrosis (Chronic) low back pain; xray + DJD Hypercholesterolemia (Chronic) Lichen planus (Chronic) mouth Right hip pain (Chronic 03/27/17) Hematuria (Acute) Neg work-up 2013. UA not meeting RBC in years since for repeat Fatigue (Acute 06/26/12) OAB (overactive bladder) (Acute) Insomnia (Acute) Osteoporosis (Chronic) Left foot pain (Acute) Hip pain (Acute) Ingrown nail (Acute) Cervical pain (neck) (Acute) Low back pain (Acute) Lung infiltrate on CT (Acute) Insomnia (Acute) Annual physical exam (Acute) Medical History Ingrowing toenail (04/14/14) Hematuria unspeficified; asymptomatic; neg W/U Fatigue 06/26/12 Ingrown toenail 04/14/14 Urinary tract infectious disease recurrent Surgical History History of cataract surgery History of bladder repair surgery Status post laparoscopic hysterectomy H/O bladder repair surgery sling S/P laparoscopic hysterectomy 05/07/83 partial, dysmenorrhea Hysterectomy, Laproscopic (~1983) partial; dysmenorrhea Bladder Surgery (~1999) SLING Family History Mother , age 92 Dementia Father , age 78 Cancer Brother Asthma Brother ALS (amyotrophic lateral sclerosis) Brother No problems noted. Maternal Grandfather , age 50 Black lung disease Paternal Grandfather , age 65 Black lung disease Maternal Grandmother , age 80 No problems noted. Paternal Grandmother , age 84 No problems noted. Son No problems noted. Son No problems noted. Social History Smoking/Tobacco Use Status: Former Tobacco Use tobacco type: cigarettes Quit Date: 05/07/97 Tobacco: How many years used: 30 Second Hand Exposure: Yes Smoking risk assessment performed?: Yes Alcohol Intake: current Alcohol Intake frequency: holidays/special occasions only Drug use: Never Substance use type: does not use Household members: spouse Housing: house Communication Needs: None Do you need help understanding health information?: Often Pets and animals: No Sexually active: No Do you think of yourself as: straight/heterosexual Current gender identity: female What is your relationship status?: How often do you talk on the phone with friends or family?: three or more times per week How often do you get together with friends or relatives?: decline to answer How often do you attend zoroastrianism or scientology services?: 4 or more times per year Do you belong to any clubs or organized social groups?: yes Panel score (0-1 are the most socially isolated patients): 4 What type of physical activity do you participate in: walking, aerobic, bicycling and swimming Duration: 30-45 minutes/day Frequency: 3-4 times per week Lorraine/Protestant: Amish Special lorraine needs: No Seatbelt use: always Helmet use: Yes Helmet use: always Drive intox or ride w/intox pack train driver: No Do you feel safe at home: Yes Do you feel safe in your relationship?: Yes Meds Allergies and Home Medications Allergies Allergy/AdvReac Type Severity Reaction Status Date / Time ibuprofen AdvReac Mild Stomach Unverified 03/08/23 16:58 cramps Home Medications Medication Instructions Recorded Confirmed Type multivitamin with minerals 1 ea PO DAILY 11/30/12 03/08/23 History triamcinolone acetonide 0.1 % 1 applic topical DAILY PRN 07/25/21 03/08/23 History topical cream nystatin 100,000 unit/gram topical 1 applic topical BID #60 grams 10/04/21 03/08/23 Rx powder hydrocortisone 2.5 % topical cream [address] QD-BID PRN itching #30 03/24/22 03/08/23 Rx with perineal applicator grams (Procto-Med HC) melatonin 5 mg capsule 5 mg PO HS 04/11/22 03/08/23 History venlafaxine 75 mg capsule,extended 150 mg (2 x 75 mg) PO DAILY #60 05/02/22 03/08/23 Rx release 24 hr tab-caps quetiapine 100 mg tablet 100 mg PO BID #180 tabs 06/14/22 03/08/23 Rx pen needle, diabetic 31 gauge x #90 ea 10/31/22 03/08/23 Rx 3/16 (BD Ultra-Fine Mini Pen Needle) polyethylene glycol 3350 17 17 g PO DAILY 12/04/22 03/08/23 History gram/dose oral powder (Miralax) losartan 50 mg tablet 50 mg PO HS 12/13/22 03/08/23 History glipizide 10 mg tablet, extended 10 mg PO BID #180 tabs 01/29/23 03/08/23 Rx release 24 hr methenamine hippurate 1 gram tablet 1 g PO BID #180 tab-caps 01/29/23 03/08/23 Rx mirabegron 50 mg tablet,extended 50 mg PO DAILY #90 tabs 01/29/23 03/08/23 Rx release 24 hr (Myrbetriq) semaglutide 0.25 mg or 0.5 mg (2 0.5 mg (0.736 mL) subcut QWEEK #9 01/29/23 03/08/23 Rx mg/3 mL) subcutaneous pen injector mL (Ozempic) simvastatin 10 mg tablet 10 mg PO pm #90 tab-caps 01/29/23 03/08/23 Rx clonazepam 1 mg tablet 1 mg PO BID #180 tab-caps 03/02/23 03/08/23 Rx Exam Const General: cooperative, comfortable and no acute distress Nutritional Appearance: average body habitus Orientation: alert, awake and oriented x3 HENMT Head: normal to inspection, normocephalic and atraumatic Mouth: moist mucous membranes abnormal Eyes Sclera: scleral abnormality bilaterally (icteric ) Pupils: PERRL EOM: EOM intact bilaterally Neck Neck: normal visual inspection and full ROM Resp Effort & Inspection: normal respiratory effort Auscultation: clear to auscultation bilaterally Cardio Rate: regular rate Rhythm: regular rhythm GI Inspection: normal to inspection Palpation: soft, no guarding, no masses, nontender and No ascites Auscultation: normal bowel sounds Skin General skin exam: jaundice Neuro General: patient alert, patient awake, patient oriented x3 and moves all extremities Cranial Nerves: CN's II-XI intact bilaterally Cognition: normal cognition Speech: speech normal Extrem General: normal to inspection and full ROM Psych Appearance: grossly normal Results Labs 03/10/23 10:35 03/10/23 06:17 Labs: Laboratory Results - last 24 hr 03/08/23 03/09/23 03/09/23 15:20 10:25 15:50 WBC 7.47 RBC 3.84 L Hgb 10.6 L Hct 32.2 L MCV 84 MCH 27.6 MCHC 32.9 RDW 15.0 H Plt Count 15 L* MPV Immature Gran % 1.1 Neutrophils % 71.7 Lymphocytes % 17.3 Monocytes % 5.0 Eosinophils % 4.1 Basophils % 0.8 Nucleated RBC % 0.0 Absolute Neutrophils 5.36 Absolute Lymphocytes 1.29 Absolute Monocytes 0.37 Absolute Eosinophils 0.31 Absolute Basophils 0.06 RBC Morphology Normal Microcytosis PT 10.6 INR 1.1 APTT Sodium 128 L Potassium 3.5 Chloride 95 L Carbon Dioxide 25.4 Anion Gap 7.6 BUN 10 Creatinine 0.6 Est GFR (CKD-EPI 2020) 91.25 Glucose 282 H Calcium 8.8 Magnesium Total Bilirubin 15.3 H Conjugated Bilirubin AST 359 H ALT 451 H Alkaline Phosphatase 1220 H Lactate Dehydrogenase 276 H Total Protein 6.0 L Albumin 2.2 L Hepatitis A IgM Ab Negative Hep Bs Antigen Negative Hep B Core Total Ab Negative Hepatitis C Antibody Negative Add-On Test Request Patient ABO/Rh A Positive Antibody Screen NEGATIVE 03/09/23 03/09/23 03/09/23 18:10 19:35 Unknown WBC RBC Hgb 10.3 L 10.2 L Hct 31.9 L 30.5 L MCV MCH MCHC RDW Plt Count MPV Immature Gran % Neutrophils % Lymphocytes % Monocytes % Eosinophils % Basophils % Nucleated RBC % Absolute Neutrophils Absolute Lymphocytes Absolute Monocytes Absolute Eosinophils Absolute Basophils RBC Morphology Microcytosis PT INR APTT Sodium Potassium Chloride Carbon Dioxide Anion Gap BUN Creatinine Est GFR (CKD-EPI 2020) Glucose Calcium Magnesium Total Bilirubin Conjugated Bilirubin AST ALT Alkaline Phosphatase Lactate Dehydrogenase Total Protein Albumin Hepatitis A IgM Ab Cancelled Hep Bs Antigen Cancelled Hep B Core Total Ab Cancelled Hepatitis C Antibody Cancelled Add-On Test Request Patient ABO/Rh Antibody Screen 03/10/23 06:17 WBC 7.64 RBC 3.74 L Hgb 10.3 L Hct 30.8 L MCV 82 MCH 27.5 MCHC 33.4 RDW 14.7 H Plt Count 16 L* MPV Immature Gran % 1.3 Neutrophils % 72.2 Lymphocytes % 17.0 Monocytes % 6.2 Eosinophils % 2.6 Basophils % 0.7 Nucleated RBC % 0.0 Absolute Neutrophils 5.52 Absolute Lymphocytes 1.30 Absolute Monocytes 0.47 Absolute Eosinophils 0.20 Absolute Basophils 0.05 RBC Morphology See Below Microcytosis 1+ PT 10.7 INR 1.1 APTT 28.3 Sodium 131 L Potassium 3.0 L Chloride 95 L Carbon Dioxide 25.9 Anion Gap 10.1 BUN 5 L Creatinine 0.5 L Est GFR (CKD-EPI 2020) 95.35 Glucose 163 H Calcium 8.6 Magnesium 1.7 L Total Bilirubin 15.9 H Conjugated Bilirubin 13.2 H AST 375 H ALT 450 H Alkaline Phosphatase 1289 H Lactate Dehydrogenase Total Protein 5.9 L Albumin 2.2 L Hepatitis A IgM Ab Hep Bs Antigen Hep B Core Total Ab Hepatitis C Antibody Add-On Test Request DONE Patient ABO/Rh Antibody Screen Last Vital Signs Temp 36.7 C 03/10/23 08:37 Pulse 72 03/10/23 08:37 Resp 18 03/10/23 08:37 BP 150/77 H 03/10/23 08:37 Pulse Ox 93 03/10/23 08:37 Time Spent Time spent with Patient: 55-74 minutes Time was spent: preparing to see the patient(eg.review tests), obtaining and/or reviewing separately otained hiistory, ordering medications,tests, procedures, referring, communicating with other health senior caregiver, indepentently interpreting results and counseling the patient
[2023-03-10] MEDS: POTASSIUM CHLORIDE 20 MEQ/100 ML BAG 50 MEQ IVPB (10:28)
[2023-03-10 10:42] LABS: Platelet Count 36 10^3/uL (130-400)
[2023-03-10] MEDS: Lactulose 20 GM/30 ML CUP PO (10:47)
--- NOTE | 2023-03-10 11:38 | PDOC.CMPRO ---
Date of service: 03/10/23 Time of Service: 11:38 Care Management Progress Note Progress Note Text Progress Note Text: Per MD, Tina will be transferred to ICU, she has been accepted in transfer to [facility] and will remain in ICU until transfer coordination is complete. She will transport via EMS.
--- NOTE | 2023-03-10 11:43 | DSE_ITS ---
Date of service: 03/10/23 Time of Service: 11:45 DS: Diagnosis Discharge Diagnosis (1) Liver failure, acute: Status: Acute (2) Painless jaundice: Status: Acute (3) Hematemesis: Status: Acute (4) Thrombocytopenia: Status: Acute (5) Transaminitis: Status: Acute (6) Acute on chronic anemia: Status: Acute (7) Diabetes mellitus: Status: Chronic (8) Hypertension: Status: Chronic (9) Hypercholesterolemia: Status: Chronic (10) Hyponatremia: Status: Acute (11) Hypokalemia: Status: Acute (12) Hypomagnesemia: Status: Acute Discharge Plan Disposition Patient Disposition: Transfer-Acute Inpatient Care Specific Acute Inpt Facility: [facility] Condition: Serious Discharge Details Reason For Visit: liver failure Admit Date/Time: 03/08/23 15:36 Admit Provider: Alexandre Pope Attending Provider: Alexandre Pope Primary Care Provider: Sarah Weldon [facility] Course Hospital Course: Ms Juarez is a 78 year old female with PMHx of 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 The patient's T. bili at the time was 19.1, ST was 333, ALT 541, and alk phos was 1444. Her INR was 1.1, ammonia was 18, and her platelet count was 25 (the last platelet count we have in our medical record was 312 in 12/2016). The patient had a negative viral hepatitis panel and a negative PCR for COVID-19. CT of the abdomen/pelvis showed dilatation of the intra and extrahepatic bile ducts at the level of pancreatic head, hepatomegaly, hepatic steatosis. There was no evidence of a discernable pancreatic mass. There was pancreatic atrophy with prominence of the pancreatic duct. An MRCP was recommended and demonstrated an abnormal dilatation of the common bile duct with abrupt tapering at the pancreatic head. Again, there was no visible mass, but a small ampullary mass could not be excluded. Both GI and Hematology at [facility] were consulted. Neither [facility] nor [facility] had available capacity on 03/09/23. GI did recommend holding off of an ERCP until thrombocytopenia was mitigated. Her platelet count was 15. Hematology recommended ruling out ITP vs DIC. HIV, fibrinogen were ordered and still pending. LDH was 279 yesterday and is 276 today. The patient developed nausea and vomiting overnight last night, with emetic contents described as coffee ground emesis. Per nursing, this happened twice. No gastroccult was done. The patient felt the emetic contents looked like her dinner last night. Her Hemoglobin has remained at 10.3 this morning (it was 12.5 on 03/08/23; 10.6 down to 10.2 yesterday). She has remained hemodynamically stable and has not had recurrence of hematemesis since. Given reports of hematemesis, a unit of platelets was transfused, with the platelet count improv ing to 36 post-transfusion. Given thrombocytopenia and reports of GI bleeding, she was started on IV protonix and transferred to the ICU. She is hemodynamically stable. A transfer to [facility] was again sought due to the fact that she needs a futher GI workup and is considered too high risk for any interventions at our facility, given her thrombocytopenia (and lack of immediate access to platelets which have to be brought over to our facility from [facility]), and the patient was accepted in transfer by Dr Eckert of hospitalist medicine at [facility]. The patient is agreeable to transfer and is stable for transfer. Of note, the patient's potassium today was 3.0. She was nauseated, so repletion was ordered orally - she was only able to complete an infusion of a 20 meq runner. The rest should be repleted at [facility]. She did complete infusion of magnesium sulfate for her magnesium of 1.7. Care for patient as well as coordination of transfer and completion of her transfer summary on day of transfer took 60 minutes. Please, look at MAR for the list of the patient's current inpatient medications. The list of medications below reflects her outpatient prescriptions. Home Meds and New Rx's Prescriptions: No Action triamcinolone acetonide 0.1 % cream 1 applic TP DAILY PRN polyethylene glycol 3350 [Miralax] 17 gram/dose powder 17 g PO DAILY Myrbetriq 50 mg tablet extended release 24 hr 50 mg PO DAILY Qty: 90 3RF methenamine hippurate 1 gram tablet 1 g PO BID Qty: 180 3RF simvastatin 10 mg tablet 10 mg PO pm Qty: 90 3RF glipizide 10 mg tablet extended release 24hr 10 mg PO BID Qty: 180 3RF Ozempic 0.25 mg or 0.5 mg (2 mg/3 mL) pen injector 0.5 mg subcut QWEEK Qty: 9 3RF multivitamin with minerals 1 EACH tablet 1 ea PO DAILY nystatin 100,000 unit/gram powder 1 applic topical BID Qty: 60 4RF hydrocortisone [Procto-Med HC] 2.5 % cream with perineal applicator 1 applic VA QD-BID PRN (Reason: itching) Qty: 30 2RF melatonin 5 mg capsule 5 mg PO HS Rx Instructions: Takes 1-2 gummies HS, PRN venlafaxine 75 mg capsule,extended release 24hr 150 mg PO DAILY Qty: 60 11RF quetiapine 100 mg tablet 100 mg PO BID Qty: 180 3RF (DME) pen needle, diabetic [BD Ultra-Fine Mini Pen Needle] 31 gauge x 3/16 needle See Rx Instructions .ROUTE .MEDSUPPLY Qty: 90 4RF Rx Instructions: Daily E11.9 clonazepam 1 mg tablet 1 mg PO BID Qty: 180 2RF Rx Instructions: losartan 50 mg tablet 50 mg PO HS Discharge Instructions Referrals: Sarah Weldon [place], [place] [Primary Care Provider] - Activity:: Activity as Tolerated Equipment/Supplies:: No Equipment Needed Diet:: NPO Discharge Orders Discharge Orders: Discharge Order (Routine); Ordered 03/10/23 Ordered By: Alyssa Nuñez DS: Summary Time Spent with Patient providing and/or coordinating discharge services: Greater than 30 minutes Status at Discharge Functional status at discharge: independent ambulation Overall status at discharge: patient is not back to baseline Mental Status: mental status grossly normal Speech and Movement: speech and movement normal Mood: congruent mood Affect: normal affect Exam Narrative Exam Narrative: General: Pleasant female who is visibly jaundiced, A&Ox3, NAD HEENT: EOMI, MMM, scleral icterus Heart: RRR, no m/r/g Lungs: CTAB Abdomen: soft, nontender, nondistended, no ascites Extremities: trace edema BLEs Psych Mental Status: mental status grossly normal Speech and Movement: speech and movement normal Mood: congruent mood Affect: normal affect DS: Data Vitals/I&O Vitals and I&O: Vital Signs Temperature 36.7 C 03/10/23 08:37 Temperature Source Tympanic 03/10/23 00:17 Pulse 72 03/10/23 08:37 Pulse Rhythm Irregular 03/10/23 07:38 Respiratory Rate 18 03/10/23 08:37 Respiratory Effort Normal, Non-Labored 03/10/23 07:38 Respiratory Depth Normal 03/10/23 07:38 Respiratory Pattern Normal 03/10/23 07:38 Blood Pressure 150/77 H 03/10/23 08:37 Blood Pressure Position Sitting 03/08/23 14:55 Pulse Oximetry 93 03/10/23 08:37 Oxygen Delivery Method Room Air 03/10/23 08:37 Oxygen Flow Rate 0 03/10/23 08:37 Pain Level 0 03/10/23 07:00 Comment RN Notified 03/09/23 22:54 Intake & Output 03/09/23 03/09/23 03/10/23 11:59 23:59 11:59 Intake Total 1153.333 / 2203.833 1050.5 / 2203.833 1413.0 / 1413.0 Output Total 1400 / 1830 430 / 1830 1650 / 1650 Balance -246.667 / 373.833 620.5 / 373.833 -237.0 / -237.0 Intake: IV 913.333 / 2362.047 4869.5 / 8757.976 2687.0 / 1101.0 Oral 240 / 240 Blood Product 312 / 312 Apheresis Platelets Unit 312 / 312 [id number] Output: Urine 1400 / 1550 150 / 1550 1650 / 1650 Emesis 280 / 280 Other: Urine Color Dark Jodie Dark Jodie Yellow Light Jodie Urine Appearance Clear Cloudy Cloudy Urine Odor Foul None None Emesis Description Coffee Grounds Bright Red Blood Voiding Methods Bedside Commode Bedside Commode Bedside Commode Data Completed and Pending Labs on day of discharge: Labs from last 24 hours 03/10/23 03/10/23 03/09/23 10:35 06:17 Unknown WBC 7.64 RBC 3.74 L Hgb 10.3 L Hct 30.8 L MCV 82 MCH 27.5 MCHC 33.4 RDW 14.7 H Plt Count 36 L D 16 L* MPV Immature Gran % 1.3 Neutrophils % 72.2 Lymphocytes % 17.0 Monocytes % 6.2 Eosinophils % 2.6 Basophils % 0.7 Nucleated RBC % 0.0 Absolute Neutrophils 5.52 Absolute Lymphocytes 1.30 Absolute Monocytes 0.47 Absolute Eosinophils 0.20 Absolute Basophils 0.05 RBC Morphology See Below Microcytosis 1+ Haptoglobin PT 10.7 INR 1.1 APTT 28.3 Fibrinogen Sodium 131 L Potassium 3.0 L Chloride 95 L Carbon Dioxide 25.9 Anion Gap 10.1 BUN 5 L Creatinine 0.5 L Est GFR (CKD-EPI 2020) 95.35 Glucose 163 H Calcium 8.6 Magnesium 1.7 L Total Bilirubin 15.9 H Conjugated Bilirubin 13.2 H AST 375 H ALT 450 H Alkaline Phosphatase 1289 H Lactate Dehydrogenase Total Protein 5.9 L Albumin 2.2 L CA 19-9 Antigen Hepatitis A IgM Ab Cancelled Hep Bs Antigen Cancelled Hep B Core Total Ab Cancelled Hepatitis C Antibody Cancelled HIV 1&2 Ag/Ab, 4th Gen Pathology Consult Spec Add-On Test Request DONE Patient ABO/Rh Antibody Screen 03/09/23 03/09/23 03/09/23 19:35 18:10 15:50 WBC RBC Hgb 10.2 L 10.3 L Hct 30.5 L 31.9 L MCV MCH MCHC RDW Plt Count MPV Immature Gran % Neutrophils % Lymphocytes % Monocytes % Eosinophils % Basophils % Nucleated RBC % Absolute Neutrophils Absolute Lymphocytes Absolute Monocytes Absolute Eosinophils Absolute Basophils RBC Morphology Microcytosis Haptoglobin Pending PT INR APTT Fibrinogen Pending Sodium Potassium Chloride Carbon Dioxide Anion Gap BUN Creatinine Est GFR (CKD-EPI 2020) Glucose Calcium Magnesium Total Bilirubin Conjugated Bilirubin AST ALT Alkaline Phosphatase Lactate Dehydrogenase 276 H Total Protein Albumin CA 19-9 Antigen Hepatitis A IgM Ab Hep Bs Antigen Hep B Core Total Ab Hepatitis C Antibody HIV 1&2 Ag/Ab, 4th Gen Pending Pathology Consult Spec Add-On Test Request Patient ABO/Rh Antibody Screen 03/09/23 03/09/23 03/08/23 15:22 10:25 15:20 WBC RBC Hgb Hct MCV MCH MCHC RDW Plt Count MPV Immature Gran % Neutrophils % Lymphocytes % Monocytes % Eosinophils % Basophils % Nucleated RBC % Absolute Neutrophils Absolute Lymphocytes Absolute Monocytes Absolute Eosinophils Absolute Basophils RBC Morphology Microcytosis Haptoglobin PT INR APTT Fibrinogen Sodium Potassium Chloride Carbon Dioxide Anion Gap BUN Creatinine Est GFR (CKD-EPI 2020) Glucose Calcium Magnesium Total Bilirubin Conjugated Bilirubin AST ALT Alkaline Phosphatase Lactate Dehydrogenase Total Protein Albumin CA 19-9 Antigen Pending Hepatitis A IgM Ab Hep Bs Antigen Hep B Core Total Ab Hepatitis C Antibody HIV 1&2 Ag/Ab, 4th Gen Pathology Consult Spec Pending Add-On Test Request Patient ABO/Rh A Positive Antibody Screen NEGATIVE Additional Comments Additional comments: MRCP: Abnormal dilatation of the common bile duct with abrupt tapering at the pancreatic head. No stone visible. No mass is visible but a small ampullary mass cannot be excluded on the basis of this exam. CT abdomen/pelvis: 1. Dilatation of the intra and extrahepatic bile ducts to the level of the pancreatic head. No discernible pancreatic mass is seen on this examination. There is atrophy of the pancreas and prominence of the pancreatic duct. MRI of the pancreas and MRCP is recommended to exclude a pancreatic/ampullary mass. 2. Hepatomegaly and hepatic steatosis. 3. There is diffuse thickening of the wall of the urinary bladder. This can be seen with underdistention, cystitis or chronic bladder outlet obstruction. Please correlate clinically. PFSH All Active Problems (Updated 03/10/23 @ 12:59 by Alyssa Nuñez MD) Hypomagnesemia (Acute) Hypokalemia (Acute) Painless jaundice (Acute) Hypertension (Chronic) Acute on chronic anemia (Acute) Hematemesis (Acute) Liver failure, acute (Acute) Hyponatremia (Acute) Contraindication to deep vein thrombosis (DVT) prophylaxis (Acute) Discharge planning issues (Acute) Hyperbilirubinemia (Acute) Thrombocytopenia (Acute) Transaminitis (Acute) Jaundice (Acute) Actinic keratosis (Chronic 11/13/17) Anxiety (Chronic) chronic benzodiazipine use 03/27/17 FLOR-7 SCORE=7 07/02/17 FLOR-7 SCORE=13 Diabetes mellitus (Chronic 12/23/12) Diverticulosis of colon without diverticulitis (Chronic) Generalized osteoarthrosis (Chronic) low back pain; xray + DJD Hypercholesterolemia (Chronic) Lichen planus (Chronic) mouth Right hip pain (Chronic 03/27/17) Hematuria (Acute) Neg work-up 2013. UA not meeting RBC in years since for repeat Fatigue (Acute 06/26/12) OAB (overactive bladder) (Acute) Insomnia (Acute) Osteoporosis (Chronic) Left foot pain (Acute) Hip pain (Acute) Ingrown nail (Acute) Cervical pain (neck) (Acute) Low back pain (Acute) Lung infiltrate on CT (Acute) Insomnia (Acute) Annual physical exam (Acute) Medical History Ingrowing toenail (04/14/14) Hematuria unspeficified; asymptomatic; neg W/U Fatigue 06/26/12 Ingrown toenail 04/14/14 Urinary tract infectious disease recurrent Surgical History History of cataract surgery History of bladder repair surgery Status post laparoscopic hysterectomy H/O bladder repair surgery sling S/P laparoscopic hysterectomy 05/07/83 partial, dysmenorrhea Hysterectomy, Laproscopic (~1983) partial; dysmenorrhea Bladder Surgery (~1999) SLING Family History Mother , age 92 Dementia Father , age 78 Cancer Brother Asthma Brother ALS (amyotrophic lateral sclerosis) Brother No problems noted. Maternal Grandfather , age 50 Black lung disease Paternal Grandfather , age 65 Black lung disease Maternal Grandmother , age 80 No problems noted. Paternal Grandmother , age 84 No problems noted. Son No problems noted. Son No problems noted. Social History Smoking/Tobacco Use Status: Former Tobacco Use tobacco type: cigarettes Quit Date: 05/07/97 Tobacco: How many years used: 30 Second Hand Exposure: Yes Smoking risk assessment performed?: Yes Alcohol Intake: current Alcohol Intake frequency: holidays/special occasions only Drug use: Never Substance use type: does not use Household members: spouse Housing: house Communication Needs: None Do you need help understanding health information?: Often Pets and animals: No Sexually active: No Do you think of yourself as: straight/heterosexual Current gender identity: female What is your relationship status?: How often do you talk on the phone with friends or family?: three or more times per week How often do you get together with friends or relatives?: decline to answer How often do you attend episcopal or adventism services?: 4 or more times per year Do you belong to any clubs or organized social groups?: yes Panel score (0-1 are the most socially isolated patients): 4 What type of physical activity do you participate in: walking, aerobic, bicycling and swimming Duration: 30-45 minutes/day Frequency: 3-4 times per week Lorraine/Caodaism: Evangelical Special lorraine needs: No Seatbelt use: always Helmet use: Yes Helmet use: always Drive intox or ride w/intox carry all driver: No Do you feel safe at home: Yes Do you feel safe in your relationship?: Yes Time Spent with Patient Time Spent with Patient: 45-69 minutes Time was spent: preparing to see the patient(eg.review tests), obtaining and/or reviewing separately otained hiistory, ordering medications,tests, procedures, referring, communicating with other health career guidance counselor, indepentently interpreting results, counseling the patient and care coordination
--- NOTE | 2023-03-10 12:04 | NUR.NOTE ---
Pt unable to tolerate IV potassium at 25ml/hr with NS, stating it liang. Potassium stopped and issue communicated to [facility] receiving pt in ICU. Nursing Note:
[2023-03-10 12:31] LABS: Lab Add On Test DONE
[2023-03-10] MEDS: Insulin Aspart 300 UNITS/3 ML PEN SC (12:44)
[2023-03-10 12:45] LABS: Acetaminophen < 2 ug/mL (10-30)
[2023-03-11 17:40] LABS: Fibrinogen 650 mg/dL (171-384)
[2023-03-12 09:23] LABS: Haptoglobin 178 mg/dL (32-197)
[2023-03-12 11:24] LABS: HIV-1/2 Ag & Ab Screen Negative (Negative)
[2023-03-12 13:27] LABS: CA 19-9 196 U/mL (<35)
== END 2023-03-10 13:20 | disposition short-term general hospital (02) ==
LOC: ER 17:17 → MS 03-09 12:07 → ICU 03-10 11:45
PROVIDERS: Internal Medicine; Nurse Practitioner Acute Care; Admitting Provider Family Medicine; Emergency Provider Student in an Organized Health Care Education/Training Program; PCP Family Medicine; Visit Provider Family Medicine
DX: K72.00 Acute and subacute hepatic failure without coma (principal); K92.0 Hematemesis; E80.6 Other disorders of bilirubin metabolism; D69.6 Thrombocytopenia, unspecified; E11.9 Type 2 diabetes mellitus without complications; R74.01 Elevation of levels of liver transaminase levels; E87.1 Hypo-osmolality and hyponatremia; D64.9 Anemia, unspecified; E78.00 Pure hypercholesterolemia, unspecified; I10 Essential (primary) hypertension; E87.6 Hypokalemia; E83.42 Hypomagnesemia; Z79.899 Other long term (current) drug therapy; Z79.84 Long term (current) use of oral hypoglycemic drugs; F41.9 Anxiety disorder, unspecified; K57.30 Diverticulosis of large intestine without perforation or abscess without bleeding; M15.9 Polyosteoarthritis, unspecified; N32.81 Overactive bladder; G47.00 Insomnia, unspecified; M81.0 Age-related osteoporosis without current pathological fracture; M54.50 Low back pain, unspecified; Z87.891 Personal history of nicotine dependence; R93.2 Abnormal findings on diagnostic imaging of liver and biliary tract
CPT/HCPCS: 00123; 36415; 74183; 80048; 80053; 80076; 83935; 85384; 86704; 86709; 86803; 86850; 86900; 86901; 87340; 87389; 87635; 96361; 96365; 96366; 96367; 96368; 96372; 96374; 96375; 99285; 80329; 81003; 81015; 82140; 82248; 82436; 83010; 83615; 83735; 83930; 84133; 84300; 85014; 85018; 85025; 85049; 85610; 85730; 86301; 99223; 99233; 99239; J2060; J3480; J3490; P9035

== ENCOUNTER 2023-03-23 17:32 | Outpatient (REF) | payer OTHER, SELFPAY ==
[2023-03-23 21:13] LABS: Bilirubin Negative (Negative); Blood Trace-intact (Negative); Clarity Cloudy (Clear); Glucose >=1000 mg/dL (Negative); Ketones Negative (Negative); Leukocyte Esterase Small (Negative); Nitrite Negative (Negative); Urobilinogen 0.2 mg/dL (Up to 0.2)
[2023-03-23 21:23] LABS: Bacteria Few HPF (Negative); Crystals Few Amorphous HPF (Negative); Epithelial Cells Few HPF (Negative); RBC 0-2 HPF (0-2); WBC >50 HPF (0-5)
[2023-03-23 21:24] LABS: C & S Indicated? C&S Done As Ordered; Casts Negative LPF (Negative); Mucus Trace (Negative)
== END 2023-03-23 17:33 | disposition home or self-care (01) ==
LOC: LBN 17:32
PROVIDERS: Nurse Practitioner Gerontology; PCP Family Medicine; Visit Provider Physician Assistant
DX: R30.0 Dysuria (principal)
CPT/HCPCS: 81003; 81015; 87086

== ENCOUNTER 2023-03-26 18:31 | Outpatient (REF) | payer OTHER, SELFPAY ==
[2023-03-26 19:00] LABS: Bilirubin Moderate (Negative); Blood Trace-intact (Negative); Clarity Cloudy (Clear); Glucose >=1000 mg/dL (Negative); Ketones Trace mg/dL (Negative); Leukocyte Esterase Trace (Negative); Nitrite Positive (Negative)
[2023-03-26 19:09] LABS: Bacteria Few HPF (Negative); Epithelial Cells Few HPF (Negative); RBC 0-2 HPF (0-2); WBC >50 HPF (0-5)
[2023-03-26 19:10] LABS: C & S Indicated? Yes; Casts Negative LPF (Negative); Crystals Negative HPF (Negative); Mucus Moderate (Negative)
== END 2023-03-26 18:32 | disposition home or self-care (01) ==
LOC: LBN 18:31
PROVIDERS: PCP Family Medicine; Visit Provider Family Medicine
DX: R30.0 Dysuria (principal); N39.0 Urinary tract infection, site not specified
CPT/HCPCS: 81003; 81015; 87086

== ENCOUNTER 2023-03-28 09:22 | Emergency (ER) | payer OTHER, SELFPAY ==
[2023-03-28] VITALS (36 sets, daily range): BP systolic 91–125; BP diastolic 37–56; PULSE 65–100; RESP 12–24; TEMP 36.6–36.7; O2SAT 93–100
--- NOTE | 2023-03-28 09:24 | W.ED.GENAD ---
Discharge Plan Disposition Patient Disposition: Home Condition: Stable Discharge Details Clinical Impression: Acute dehydration, Decreased appetite Primary Care Provider: Sarah Weldon ED Provider: Solomon Kramer Home Meds and New Rx's Prescriptions: Continued triamcinolone acetonide 0.1 % cream 1 applic TP DAILY PRN methenamine hippurate 1 gram tablet 1 g PO BID Qty: 180 3RF simvastatin 10 mg tablet 10 mg PO pm Qty: 90 3RF Hold Instructions: Changed by Provider multivitamin with minerals 1 EACH tablet 1 ea PO DAILY hydrocortisone [Procto-Med HC] 2.5 % cream with perineal applicator 1 applic WV QD-BID PRN (Reason: itching) Qty: 30 2RF quetiapine 100 mg tablet 100 mg PO BID Qty: 180 3RF (DME) pen needle, diabetic [BD Ultra-Fine Mini Pen Needle] 31 gauge x 3/16 needle See Rx Instructions .ROUTE .MEDSUPPLY Qty: 90 4RF Rx Instructions: Daily E11.9 clonazepam 1 mg tablet 1 mg PO BID Qty: 180 2RF Rx Instructions: glipizide 10 mg tablet extended release 24hr 10 mg PO DAILY Qty: 180 3RF Rx Instructions: Per Dr. Weldon task on 03/27/23. -hb Myrbetriq 50 mg tablet extended release 24 hr 10 mg PO BID Gemtesa 75 mg tablet 75 mg PO DAILY Patient Comments: HS Discharge Instructions Instructions: Dehydration (ED) Additional Instructions: Please contact your primary care physician to arrange follow-up. You can also call [facility] if you have questions or concerns. They can be reached at . Be sure to drink plenty of fluids to maintain adequate hydration. Increase caloric intake to maintain adequate nutrition. Return to the ER immediately for any worsening or new concerning symptoms. Referrals: Sarah Weldon MD, [place] [Primary Care Provider] - Medical Decision Making 78yo female with past medical history of type 2 diabetes, hypertension, hyperlipidemia, found to have obstructing pancreatic adenocarcinoma, status post recent biliary stent placement, recently discharged from inpatient treatment, here today with concern for dehydration. Patient with waxing and waning hypotension on arrival. No tachycardia. Mentating well. Concern for potential worsening obstructive process versus electrolyte abnormality versus acute kidney injury. IV fluid bolus given. Patient was given oral rehydration as well. I reviewed labs. Bilirubin improved significantly. Platelets improved. No significant electrolyte abnormalities. Normal kidney function. Patient reassessed after rehydration and hemodynamically stable. Patient ambulating well without any difficulty. I spoke with the patient's son Serjio at and discussed ED course and discharge plan. He did express concern for lacking outpatient resources to date. I spoke with nurse at Dr. Bassett's office -Dr. Weldon is not in the office today. We discussed Mrs. Juarez's presentation and recommendation for close outpatient follow-up. She noted home health services have been established and she will be following up with them. She will be contacting Dr. Bassett to arrange followup. Disposition decision was made weighing the risks and benefits of hospitalization versus outpatient treatment, the risk for further decompensation, and the patient's wishes. The patient was stable and requested discharge. Prior to discharge, my usual and customary return precautions were reviewed with the patient - this included follow-up instructions and reason to return to the emergency department if condition worsens, does not improve as expected, or other new concerns arise. Lab Data Lab results reviewed: Yes I reviewed the patient's lab results. Labs: Laboratory Tests Range/Units 03/28/23 10:05 WBC (4.4-10.8) 10^3/uL 6.79 RBC (3.93-5.22) 10^6/uL 3.24 L Hgb (11.2-15.7) g/dL 9.7 L Hct (36.0-46.0) % 29.3 L MCV (80-95) fL 90 MCH (27.0-33.0) pg 29.9 MCHC (32.0-36.0) % 33.1 RDW (11.7-14.6) % 17.1 H Plt Count (130-400) 10^3/uL 536 H MPV (8.0-11.0) fL 10.2 Immature Gran % 0.9 Neutrophils % 51.7 Lymphocytes % 38.1 Monocytes % 6.2 Eosinophils % 2.5 Basophils % 0.6 Nucleated RBC % (0.0-0.3) % 0.0 Absolute Neutrophils (1.2-6.7) 10^3/uL 3.51 Absolute Lymphocytes (1.2-3.4) 10^3/uL 2.59 Absolute Monocytes (0.1-0.8) 10^3/uL 0.42 Absolute Eosinophils (0.0-0.7) 10^3/uL 0.17 Absolute Basophils (0.0-0.2) 10^3/uL 0.04 Sodium (136-145) mmol/L 136 Potassium (3.5-5.1) mmol/L 3.9 Chloride (98-107) mmol/L 101 Carbon Dioxide (21.0-32.0) mmol/L 27.6 Anion Gap (3-11) mmol/L 7.4 BUN (7-18) mg/dL 12 Creatinine (0.55-1.02) mg/dL 0.9 Est GFR (CKD-EPI 2020) (mL/min/1.73m2) 65.03 Glucose (74-106) mg/dL 295 H Calcium (8.5-10.1) mg/dL 9.0 Magnesium (1.8-2.4) mg/dL 2.0 Total Bilirubin (0.2-1.0) mg/dL 3.6 H AST (15-37) U/L 99 H ALT (14-59) U/L 103 H Alkaline Phosphatase (46-116) U/L 527 H Troponin I (<or=60) ng/L < 50 Total Protein (6.4-8.2) g/dL 6.9 Albumin (3.4-5.0) g/dL 2.5 L Lipase (16-77) U/L 18 HPI General Mode of arrival: EMS. Date/Time Provider Initiated Documentation: 03/28/23 09:23. Limitations to Documentation: no limitations. Information obtained by: patient and EMS. HPI Narrative: 78yo female with past medical history of type 2 diabetes, hypertension, hyperlipidemia, found to have obstructing pancreatic adenocarcinoma, status post recent biliary stent placement, recently discharged from inpatient treatment, here today with concern for dehydration. Patient notes not eating or drinking well with poor appetite since discharge from recent hospitalization. Patient denies abdominal pain. No nausea. No fever. Patient notes that she is unable to identify any food that is tolerable. She notes generalized weakness. Related Data Home Medications Medication Instructions Recorded Confirmed multivitamin with minerals 1 ea PO DAILY 11/30/12 03/28/23 triamcinolone acetonide 0.1 % 1 applic topical DAILY PRN 07/25/21 03/28/23 topical cream hydrocortisone 2.5 % topical cream 1 applic WV QD-BID PRN itching #30 03/24/22 03/28/23 with perineal applicator grams (Procto-Med HC) quetiapine 100 mg tablet 100 mg PO BID #180 tabs 06/14/22 03/28/23 pen needle, diabetic 31 gauge x #90 ea 10/31/22 03/28/23 3/16 (BD Ultra-Fine Mini Pen Needle) methenamine hippurate 1 gram tablet 1 g PO BID #180 tab-caps 01/29/23 03/28/23 simvastatin 10 mg tablet 10 mg PO pm #90 tab-caps 01/29/23 03/28/23 clonazepam 1 mg tablet 1 mg PO BID #180 tab-caps 03/02/23 03/28/23 glipizide 10 mg tablet, extended 10 mg PO DAILY #180 tabs 03/27/23 03/28/23 release 24 hr mirabegron 50 mg tablet,extended 10 mg PO BID 03/28/23 03/28/23 release 24 hr (Myrbetriq) vibegron 75 mg tablet (Gemtesa) 75 mg PO DAILY 03/28/23 03/28/23 Previous Rx's Medication Instructions Recorded hydrocortisone 2.5 % topical cream 1 applic WV QD-BID PRN itching #30 03/24/22 with perineal applicator grams (Procto-Med ) quetiapine 100 mg tablet 100 mg PO BID #180 tabs 06/14/22 pen needle, diabetic 31 gauge x #90 ea 10/31/22 3/16 (BD Ultra-Fine Mini Pen Needle) methenamine hippurate 1 gram tablet 1 g PO BID #180 tab-caps 01/29/23 simvastatin 10 mg tablet 10 mg PO pm #90 tab-caps 01/29/23 clonazepam 1 mg tablet 1 mg PO BID #180 tab-caps 03/02/23 glipizide 10 mg tablet, extended 10 mg PO DAILY #180 tabs 03/27/23 release 24 hr Allergies Allergy/AdvReac Type Severity Reaction Status Date / Time ibuprofen AdvReac Mild Stomach Unverified 03/28/23 09:34 cramps General ANDER: 3 Review of Systems All systems reviewed & are unremarkable except as noted in HPI and below Constitutional Constitutional: Denies fever(s), Reports lethargy and Reports poor appetite Gastrointestinal Gastrointestinal: Denies abdominal pain and Denies nausea PFSH All Active Problems (Updated 03/28/23 @ 12:36 by Solomon Kramer MD) Decreased appetite (Acute) Acute dehydration (Acute) Adenocarcinoma of pancreas (Acute) bx 03/[address] [facility] [place] Hypomagnesemia (Acute) Hypokalemia (Acute) Painless jaundice (Acute) Hypertension (Chronic) Acute on chronic anemia (Acute) Hematemesis (Acute) Liver failure, acute (Acute) Hyponatremia (Acute) Contraindication to deep vein thrombosis (DVT) prophylaxis (Acute) Hyperbilirubinemia (Acute) Thrombocytopenia (Acute) Transaminitis (Acute) Jaundice (Acute) Actinic keratosis (Chronic 11/13/17) Anxiety (Chronic) chronic benzodiazipine use 03/27/17 FLOR-7 SCORE=7 07/02/17 FLOR-7 SCORE=13 Diabetes mellitus (Chronic 12/23/12) Diverticulosis of colon without diverticulitis (Chronic) Generalized osteoarthrosis (Chronic) low back pain; xray + DJD Hypercholesterolemia (Chronic) Lichen planus (Chronic) mouth Right hip pain (Chronic 03/27/17) Hematuria (Acute) Neg work-up 2013. UA not meeting RBC in years since for repeat Fatigue (Acute 06/26/12) OAB (overactive bladder) (Acute) Insomnia (Acute) Osteoporosis (Chronic) Left foot pain (Acute) Hip pain (Acute) Ingrown nail (Acute) Cervical pain (neck) (Acute) Low back pain (Acute) Lung infiltrate on CT (Acute) Insomnia (Acute) Annual physical exam (Acute) Medical History Ingrowing toenail (04/14/14) Hematuria unspeficified; asymptomatic; neg W/U Fatigue 06/26/12 Ingrown toenail 04/14/14 Urinary tract infectious disease recurrent Surgical History History of cataract surgery History of bladder repair surgery Status post laparoscopic hysterectomy H/O bladder repair surgery sling S/P laparoscopic hysterectomy 05/07/83 partial, dysmenorrhea Hysterectomy, Laproscopic (~1983) partial; dysmenorrhea Bladder Surgery (~1999) SLING Family History Mother , age 92 Dementia Father , age 78 Cancer Brother Asthma Brother ALS (amyotrophic lateral sclerosis) Brother No problems noted. Maternal Grandfather , age 50 Black lung disease Paternal Grandfather , age 65 Black lung disease Maternal Grandmother , age 80 No problems noted. Paternal Grandmother , age 84 No problems noted. Son No problems noted. Son No problems noted. Social History Smoking/Tobacco Use Status: Former Tobacco Use tobacco type: cigarettes Quit Date: 05/07/97 Tobacco: How many years used: 30 Second Hand Exposure: Yes Smoking risk assessment performed?: Yes Alcohol Intake: current Alcohol Intake frequency: holidays/special occasions only Drug use: Never Substance use type: does not use Household members: spouse Housing: house Communication Needs: None Do you need help understanding health information?: Often Pets and animals: No Sexually active: No Do you think of yourself as: straight/heterosexual Current gender identity: female What is your relationship status?: How often do you talk on the phone with friends or family?: three or more times per week How often do you get together with friends or relatives?: decline to answer How often do you attend zoroastrian or restorationist services?: 4 or more times per year Do you belong to any clubs or organized social groups?: yes Panel score (0-1 are the most socially isolated patients): 4 What type of physical activity do you participate in: walking, aerobic, bicycling and swimming Duration: 30-45 minutes/day Frequency: 3-4 times per week Lorraine/Rastafari: Mormonism Special lorraine needs: No Seatbelt use: always Helmet use: Yes Helmet use: always Drive intox or ride w/intox ice delivery driver: No Do you feel safe at home: Yes Do you feel safe in your relationship?: Yes Exam Const General: cooperative and no acute distress HENMT Mouth: mucous membranes dry Eyes Conjunctivae: normal conjunctivae Sclera: normal sclerae Neck Neck: trachea midline and supple Resp Auscultation: clear to auscultation bilaterally, no rales, no rhonchi and no wheezes Cardio Rate: regular rate and not tachycardic Rhythm: regular rhythm GI Palpation: soft, not firm, no guarding, no masses, not rigid and nontender Skin General skin exam: jaundice Neuro General: patient alert, patient awake and tone normal Extrem General: no edema Psych Appearance: grossly normal
--- NOTE | 2023-03-28 09:45 | RT.EKG_ITS ---
APPROVED REPORT Exam: Resting ECG Reason for Exam: weakness Patient Location: E HR:74 bpm ECG Measurements Heart Rate 74 AXIS ME 185 P 101 QRSd 85 QRS 76 QT 391 T 36 QTc 435 Conclusion Sinus rhythm...normal P axis, V-rate 60- 99
[2023-03-28] MEDS: Lactated Ringers 500 ML 1000 ML IV (10:06)
[2023-03-28 10:16] LABS: Abs Immature Grans 0.06 10^3/uL (0.0-0.06); Absolute Basophil Count 0.04 10^3/uL (0.0-0.2); Absolute Eosinophil Count 0.17 10^3/uL (0.0-0.7); Absolute Lymphocyte Count 2.59 10^3/uL (1.2-3.4); Absolute Monocyte Count 0.42 10^3/uL (0.1-0.8); Absolute Neutrophil Count 3.51 10^3/uL (1.2-6.7); Basophils % 0.6; Eosinophils % 2.5; HCT 29.3 % (36.0-46.0); HGB 9.7 g/dL (11.2-15.7); Immature Grans % 0.9; Lymphocytes % 38.1; MCH 29.9 pg (27.0-33.0); MCHC 33.1 % (32.0-36.0); MCV 90 fL (80-95); MPV 10.2 fL (8.0-11.0); Monocytes % 6.2; Neutrophils % 51.7; Platelet Count 536 10^3/uL (130-400); RBC 3.24 10^6/uL (3.93-5.22); RDW 17.1 % (11.7-14.6); RDW-SD 57.1 fL; WBC 6.79 10^3/uL (4.4-10.8)
[2023-03-28] MEDS: Electrolyte SOLUTION,ORAL 1000 ML BTL PO (10:16)
[2023-03-28 10:33] LABS: ALT 103 U/L (14-59); AST 99 U/L (15-37); Albumin 2.5 g/dL (3.4-5.0); Alkaline Phosphatase 527 U/L (46-116); Anion Gap 7.4 mmol/L (3-11); BUN 12 mg/dL (7-18); Bilirubin, Total 3.6 mg/dL (0.2-1.0); CO2 27.6 mmol/L (21.0-32.0); CREATININE 0.9 mg/dL (0.55-1.02); Chloride 101 mmol/L (98-107); Estimated GFR 65.03 (mL/min/1.73m2); Glucose 295 mg/dL (74-106); Lipase 18 U/L (16-77); Potassium 3.9 mmol/L (3.5-5.1); Sodium 136 mmol/L (136-145); Total Protein 6.9 g/dL (6.4-8.2); Troponin I < 50 ng/L (<or=60)
--- NOTE | 2023-03-28 12:39 | NUR.NOTE ---
patient tolerated 400cc pedialyte Nursing Note:
== END 2023-03-28 12:58 | disposition home or self-care (01) ==
PROVIDERS: Emergency Provider Student in an Organized Health Care Education/Training Program; PCP Family Medicine
DX: I95.9 Hypotension, unspecified (principal); E86.0 Dehydration; R53.1 Weakness; C25.9 Malignant neoplasm of pancreas, unspecified; I10 Essential (primary) hypertension; E78.5 Hyperlipidemia, unspecified; Z79.84 Long term (current) use of oral hypoglycemic drugs; Z87.891 Personal history of nicotine dependence
CPT/HCPCS: 36415; 80053; 83690; 93005; 99283; 83735; 84484; 85025; 93010

== ENCOUNTER → 2023-04-17 00:56 | Outpatient (CLI) | payer OTHER, SELFPAY ==
--- NOTE | 2023-04-17 | DI.MRI_ITS ---
Exam(s) MR BRAIN WO/W EXAM: MR BRAIN WO/W CLINICAL HISTORY: PANCREATIC CANCER C25.0 GAIT IMBALANCE DIFFICULTY WALKING TECHNIQUE: Multiplanar multisequence MRI of the brain was performed. CONTRAST MATERIAL: IV Contrast: 11 mL of Dotarem contrast administered. COMPARISON: No exams were available for comparison FINDINGS: VENTRICLES AND EXTRA AXIAL SPACES: Normal in size and morphology for the patient's age. HEMORRHAGE: None. CEREBRAL PARENCHYMA: No focus of restricted diffusion to suggest acute infarct. No space-occupying le miles identified. There are multiple areas of hyperintense signal seen on the FLAIR and T2 weighted im ages in the white matter most consistent with small vessel ischemic disease. MIDLINE SHIFT: None. BRAINSTEM/CEREBELLUM: Normal. CALVARIUM: Normal. ENHANCEMENT: There is a 3 mm small enhancing focus adjacent to the frontal horn of the right lateral ventricle (image 14, series [id number]). No other enhancing lesions are seen. VISUALIZED PARANASAL SINUSES/MASTOIDS: Clear. LAC [place] OF MIRELES: Normal flow void. PITUITARY GLAND: Unremarkable. OTHER FINDINGS: IMPRESSION: 1. 3 mm small 5 enhancing focus adjacent to the right lateral ventricle. Metastatic disease should b e considered. 2. No evidence of an acute infarct. 3. Age-related cerebral atrophy and small vessel ischemic disease. DATA REPOSITORY:
[2023-04-17] MEDS: Normal Saline Flush 10 ML SYR IVP (09:27)
[2023-04-17] MEDS: Gadoterate meglumine 20 ML SYRINGE 11 ML IVP (09:28)
== END ==
PROVIDERS: PCP Family Medicine; Visit Provider Internal Medicine Hematology & Oncology
DX: G93.89 Other specified disorders of brain (principal)
CPT/HCPCS: 70553

== ENCOUNTER 2023-04-27 13:27 | Outpatient (CLI) | payer OTHER, SELFPAY ==
[2023-04-27 13:21] LABS: Abs Immature Grans 0.01 10^3/uL (0.0-0.06); Absolute Basophil Count 0.04 10^3/uL (0.0-0.2); Absolute Eosinophil Count 0.15 10^3/uL (0.0-0.7); Absolute Lymphocyte Count 2.74 10^3/uL (1.2-3.4); Absolute Monocyte Count 0.37 10^3/uL (0.1-0.8); Absolute Neutrophil Count 3.62 10^3/uL (1.2-6.7); Basophils % 0.6; Eosinophils % 2.2; HCT 36.6 % (36.0-46.0); HGB 12.4 g/dL (11.2-15.7); Immature Grans % 0.1; Lymphocytes % 39.5; MCH 30.2 pg (27.0-33.0); MCHC 33.9 % (32.0-36.0); MCV 89 fL (80-95); MPV 10.3 fL (8.0-11.0); Monocytes % 5.3; Neutrophils % 52.3; Platelet Count 301 10^3/uL (130-400); RBC 4.11 10^6/uL (3.93-5.22); RDW 12.5 % (11.7-14.6); RDW-SD 40.9 fL; WBC 6.93 10^3/uL (4.4-10.8)
[2023-04-27 13:48] LABS: ALT 36 U/L (14-59); AST 26 U/L (15-37); Albumin 3.2 g/dL (3.4-5.0); Alkaline Phosphatase 156 U/L (46-116); Anion Gap 5.5 mmol/L (3-11); BUN 7 mg/dL (7-18); Bilirubin, Total 0.9 mg/dL (0.2-1.0); CO2 29.5 mmol/L (21.0-32.0); CREATININE 0.8 mg/dL (0.55-1.02); Calcium 9.1 mg/dL (8.5-10.1); Chloride 105 mmol/L (98-107); Glucose 218 mg/dL (74-106); Potassium 3.7 mmol/L (3.5-5.1); Sodium 140 mmol/L (136-145); Total Protein 7.4 g/dL (6.4-8.2)
[2023-04-28 00:58] LABS: CA 19-9 103 U/mL (<35)
== END 2023-04-27 13:28 | disposition home or self-care (01) ==
LOC: LBO 13:28
PROVIDERS: Internal Medicine Hematology & Oncology; PCP Family Medicine; Visit Provider Family Medicine
DX: D64.9 Anemia, unspecified (principal); E87.6 Hypokalemia; I10 Essential (primary) hypertension; R17 Unspecified jaundice
CPT/HCPCS: 36415; 80053; 85027; 85025; 86301

== ENCOUNTER 2023-05-06 15:14 | Outpatient (REF) | payer OTHER, SELFPAY ==
[2023-05-06 19:20] LABS: Bilirubin Negative (Negative); Blood Negative (Negative); Clarity Clear (Clear); Glucose >=1000 mg/dL (Negative); Ketones Negative (Negative); Leukocyte Esterase Negative (Negative); Nitrite Negative (Negative); Specific Gravity 1.015 (1.005-1.025); Urobilinogen 0.2 mg/dL (Up to 0.2); pH 5.5 (5-8)
== END 2023-05-06 15:15 | disposition home or self-care (01) ==
LOC: LBN 15:14
PROVIDERS: PCP Family Medicine; Visit Provider Family Medicine
DX: R30.0 Dysuria (principal)
CPT/HCPCS: 81003

== ENCOUNTER 2023-05-29 14:27 | Outpatient (REF) | payer OTHER, SELFPAY ==
[2023-05-29 13:29] LABS: COMMENT (LAB VIEW ONLY) 69.02 mg/dL
[2023-05-29 13:40] LABS: Microalb ug/mg Crea 113.3 ug/mg Cr
== END 2023-05-29 14:28 | disposition home or self-care (01) ==
LOC: LBN 14:27
PROVIDERS: PCP Family Medicine; Visit Provider Family Medicine
DX: E11.9 Type 2 diabetes mellitus without complications (principal)
CPT/HCPCS: 82043; 82570

== ENCOUNTER 2023-06-01 01:07 | Outpatient (RCR) | payer OTHER, SELFPAY ==
[2023-05-11] MEDS: Normal Saline Flush 10 ML SYR IVP (08:03)
[2023-05-11 08:27] LABS: Abs Immature Grans 0.02 10^3/uL (0.0-0.06); Absolute Basophil Count 0.05 10^3/uL (0.0-0.2); Absolute Eosinophil Count 0.27 10^3/uL (0.0-0.7); Absolute Lymphocyte Count 2.84 10^3/uL (1.2-3.4); Absolute Monocyte Count 0.38 10^3/uL (0.1-0.8); Basophils % 0.8; Eosinophils % 4.3; HCT 38.2 % (36.0-46.0); HGB 12.9 g/dL (11.2-15.7); Immature Grans % 0.3; Lymphocytes % 45.4; MCH 29.7 pg (27.0-33.0); MCHC 33.8 % (32.0-36.0); MCV 88 fL (80-95); MPV 10.3 fL (8.0-11.0); Monocytes % 6.1; Neutrophils % 43.1; Platelet Count 324 10^3/uL (130-400); RBC 4.35 10^6/uL (3.93-5.22); RDW 11.9 % (11.7-14.6); RDW-SD 38.5 fL; WBC 6.26 10^3/uL (4.4-10.8)
[2023-05-11 08:42] LABS: ALT 67 U/L (14-59); AST 41 U/L (15-37); Albumin 3.2 g/dL (3.4-5.0); Alkaline Phosphatase 226 U/L (46-116); Anion Gap 8.7 mmol/L (3-11); BUN 18 mg/dL (7-18); Bilirubin, Total 0.6 mg/dL (0.2-1.0); CO2 29.3 mmol/L (21.0-32.0); CREATININE 0.8 mg/dL (0.55-1.02); Calcium 9.3 mg/dL (8.5-10.1); Chloride 106 mmol/L (98-107); Glucose 144 mg/dL (74-106); Potassium 3.7 mmol/L (3.5-5.1); Sodium 144 mmol/L (136-145); Total Protein 7.2 g/dL (6.4-8.2)
[2023-05-14 11:45] LABS: CA 19-9 78 U/mL (<35)
[2023-05-18] MEDS: Normal Saline Flush 10 ML SYR IVP (10:28)
[2023-05-18 10:51] LABS: Abs Immature Grans 0.01 10^3/uL (0.0-0.06); Absolute Basophil Count 0.03 10^3/uL (0.0-0.2); Absolute Lymphocyte Count 1.82 10^3/uL (1.2-3.4); Absolute Neutrophil Count 1.31 10^3/uL (1.2-6.7); Basophils % 0.9; Eosinophils % 2.9; HCT 35.7 % (36.0-46.0); HGB 11.8 g/dL (11.2-15.7); Immature Grans % 0.3; Lymphocytes % 52.4; MCH 28.8 pg (27.0-33.0); MCHC 33.1 % (32.0-36.0); MCV 87 fL (80-95); MPV 10.2 fL (8.0-11.0); Monocytes % 5.8; Neutrophils % 37.7; Platelet Count 220 10^3/uL (130-400); RDW 11.9 % (11.7-14.6); WBC 3.47 10^3/uL (4.4-10.8)
[2023-05-18 11:08] LABS: ALT 70 U/L (14-59); AST 38 U/L (15-37); Albumin 2.9 g/dL (3.4-5.0); Alkaline Phosphatase 259 U/L (46-116); Anion Gap 6.3 mmol/L (3-11); BUN 13 mg/dL (7-18); Bilirubin, Total 0.4 mg/dL (0.2-1.0); CO2 31.7 mmol/L (21.0-32.0); CREATININE 0.8 mg/dL (0.55-1.02); Calcium 9.1 mg/dL (8.5-10.1); Chloride 106 mmol/L (98-107); Glucose 148 mg/dL (74-106); Potassium 3.7 mmol/L (3.5-5.1); Sodium 144 mmol/L (136-145); Total Protein 6.9 g/dL (6.4-8.2)
[2023-05-25] MEDS: Normal Saline Flush 10 ML SYR IVP (08:35)
[2023-05-25 08:53] LABS: Abs Immature Grans 0.02 10^3/uL (0.0-0.06); Absolute Basophil Count 0.01 10^3/uL (0.0-0.2); Absolute Eosinophil Count 0.16 10^3/uL (0.0-0.7); Absolute Lymphocyte Count 1.82 10^3/uL (1.2-3.4); Absolute Monocyte Count 0.19 10^3/uL (0.1-0.8); Absolute Neutrophil Count 1.33 10^3/uL (1.2-6.7); Basophils % 0.3; Eosinophils % 4.5; HCT 35.3 % (36.0-46.0); HGB 11.9 g/dL (11.2-15.7); Immature Grans % 0.6; Lymphocytes % 51.6; MCHC 33.7 % (32.0-36.0); MCV 86 fL (80-95); MPV 9.5 fL (8.0-11.0); Monocytes % 5.4; Neutrophils % 37.6; Platelet Count 199 10^3/uL (130-400); RDW 11.8 % (11.7-14.6); RDW-SD 36.7 fL; WBC 3.53 10^3/uL (4.4-10.8)
[2023-05-25 09:08] LABS: ALT 96 U/L (14-59); AST 74 U/L (15-37); Albumin 2.8 g/dL (3.4-5.0); Alkaline Phosphatase 252 U/L (46-116); Anion Gap 6.4 mmol/L (3-11); BUN 10 mg/dL (7-18); Bilirubin, Total 0.4 mg/dL (0.2-1.0); CO2 29.6 mmol/L (21.0-32.0); CREATININE 0.7 mg/dL (0.55-1.02); Calcium 8.9 mg/dL (8.5-10.1); Chloride 106 mmol/L (98-107); Estimated GFR 87.92 (mL/min/1.73m2); Glucose 128 mg/dL (74-106); Potassium 3.9 mmol/L (3.5-5.1); Sodium 142 mmol/L (136-145); Total Protein 6.8 g/dL (6.4-8.2)
[2023-05-28 11:57] LABS: CA 19-9 35 U/mL (<35)
[2023-06-01] MEDS: Normal Saline Flush 10 ML SYR IVP (10:18)
[2023-06-01 10:27] LABS: Abs Immature Grans 0.05 10^3/uL (0.0-0.06); Absolute Basophil Count 0.09 10^3/uL (0.0-0.2); Absolute Eosinophil Count 0.35 10^3/uL (0.0-0.7); Absolute Lymphocyte Count 2.17 10^3/uL (1.2-3.4); Absolute Neutrophil Count 1.87 10^3/uL (1.2-6.7); Basophils % 1.8; HCT 35.1 % (36.0-46.0); HGB 11.6 g/dL (11.2-15.7); Lymphocytes % 43.1; MCH 28.4 pg (27.0-33.0); MCV 86 fL (80-95); MPV 9.1 fL (8.0-11.0); Monocytes % 9.9; Neutrophils % 37.2; Platelet Count 623 10^3/uL (130-400); RBC 4.08 10^6/uL (3.93-5.22); RDW 12.4 % (11.7-14.6); RDW-SD 38.5 fL; WBC 5.03 10^3/uL (4.4-10.8)
[2023-06-01 10:42] LABS: ALT 51 U/L (14-59); AST 33 U/L (15-37); Albumin 2.9 g/dL (3.4-5.0); Alkaline Phosphatase 167 U/L (46-116); Anion Gap 8.1 mmol/L (3-11); BUN 13 mg/dL (7-18); Bilirubin, Total 0.4 mg/dL (0.2-1.0); CO2 27.9 mmol/L (21.0-32.0); CREATININE 0.6 mg/dL (0.55-1.02); Calcium 8.6 mg/dL (8.5-10.1); Chloride 107 mmol/L (98-107); Estimated GFR 91.25 (mL/min/1.73m2); Glucose 226 mg/dL (74-106); Potassium 3.7 mmol/L (3.5-5.1); Sodium 143 mmol/L (136-145); Total Protein 6.7 g/dL (6.4-8.2)
[2023-06-03 13:13] LABS: CA 19-9 51 U/mL (<35)
== END 2023-06-06 23:59 | disposition home or self-care (01) ==
LOC: INF 01:07
PROVIDERS: PCP Family Medicine; Visit Provider Internal Medicine Hematology & Oncology
DX: C25.0 Malignant neoplasm of head of pancreas (principal); Z45.2 Encounter for adjustment and management of vascular access device
CPT/HCPCS: 36591; 80053; 85025; 86301

== ENCOUNTER 2023-06-09 11:57 | Outpatient (REF) | payer OTHER, SELFPAY ==
[2023-06-09 16:18] LABS: Bilirubin Small (Negative); Blood Small (Negative); Clarity Cloudy (Clear); Glucose 100 mg/dL (Negative); Ketones Trace mg/dL (Negative); Leukocyte Esterase Large (Negative); Nitrite Positive (Negative)
[2023-06-09 16:23] LABS: Bacteria Moderate HPF (Negative); C & S Indicated? Yes; Casts 3-5 Hyaline LPF (Negative); Crystals Negative HPF (Negative); Epithelial Cells Few HPF (Negative); Mucus Moderate (Negative); RBC 20-50 HPF (0-2)
== END 2023-06-09 11:58 | disposition home or self-care (01) ==
LOC: LBN 11:57
PROVIDERS: PCP Family Medicine; Visit Provider Nurse Practitioner Family
DX: N39.0 Urinary tract infection, site not specified (principal)
CPT/HCPCS: 87077; 81003; 81015; 87086; 87186

== ENCOUNTER 2023-06-18 12:19 | Outpatient (REF) | payer OTHER, SELFPAY | END 2023-06-18 12:20 | disposition home or self-care (01) | LOC: LBN 12:19 | PROVIDERS: PCP Family Medicine; Visit Provider Physician Assistant | DX: N39.0 Urinary tract infection, site not specified (principal) | CPT/HCPCS: 87086 ==

== ENCOUNTER 2023-06-20 10:22 | Outpatient (CLI) | payer OTHER, SELFPAY ==
--- NOTE | 2023-06-20 10:15 | RT.EKG_ITS ---
APPROVED REPORT Exam: Resting ECG Reason for Exam: chest discomfort Patient Location: O HR:91 bpm ECG Measurements Heart Rate 91 AXIS UT 174 P 82 QRSd 83 QRS 75 QT 341 T 20 QTc 420 Conclusion Sinus rhythm...normal P axis, V-rate 50- 99 Normal Electrocardiogram
== END 2023-06-20 10:23 | disposition home or self-care (01) ==
LOC: DI.CM 10:23
PROVIDERS: PCP Family Medicine; Visit Provider Physician Assistant
DX: R07.89 Other chest pain (principal)
CPT/HCPCS: 93010

== ENCOUNTER 2023-06-20 21:03 | Outpatient (REF) | payer OTHER, SELFPAY | END 2023-06-20 21:04 | disposition home or self-care (01) | LOC: LBN 21:03 | PROVIDERS: PCP Family Medicine; Visit Provider Physician Assistant | DX: N39.0 Urinary tract infection, site not specified (principal) | CPT/HCPCS: 87077; 87086; 87186 ==

== ENCOUNTER 2023-06-21 10:01 | Outpatient (REF) | payer OTHER, SELFPAY | END 2023-06-21 10:02 | disposition home or self-care (01) | LOC: LBN 10:01 | PROVIDERS: PCP Family Medicine; Visit Provider Family Medicine | DX: N76.0 Acute vaginitis (principal) | CPT/HCPCS: 87480; 87510; 87660 ==

== ENCOUNTER → 2023-06-25 01:52 | Outpatient (CLI) | payer OTHER, SELFPAY ==
--- NOTE | 2023-06-25 | DI.CT_ITS ---
Exam(s) CT CHEST/ABD/PEL W EXAM: CT CHEST/ABD/PEL W CLINICAL HISTORY: PANCREATIC CANCER, ASSESS TREATMENT RESPONSE TECHNIQUE: Imaging Protocol: Axial computed tomography images with coronal and sagittal reformatted images were created and reviewed CONTRAST MATERIAL: Intravenous: Omnipaque 350 contrast volume:100 mL Oral: Yes COMPARISON: CT CT ABDOMEN PELVIS W from 03/08/2023 FINDINGS: CHEST: Tracheobronchial tree: Patent where visualized. Pulmonary parenchyma: No consolidation or dominant measurable mass. No architectural distortion. Calc ified granuloma are present. No noncalcified pulmonary nodules. There is atelectasis in the lung ba ses. Visualized thyroid gland: Multinodular thyroid gland. The nodules are grossly unremarkable. The lar gest measures 5 mm. No follow-up is recommended. Mediastinum and Aislinn: No dominant adenopathy or fluid collection. The esophagus is unremarkable. Pleura: No effusion or pneumothorax. Heart: Mild cardiomegaly. Mild coronary artery calcification. Small pericardial effusion. Pulmonary arteries: No pulmonary emboli are identified. Aorta: Thoracic aorta non-dilated. No evidence of dissection. Atherosclerosis is present. Lymph nodes: No significant axillary or supraclavicular adenopathy. Tubes, Catheters, and Lines: There is a right-sided Jmttyr-F-Mchm catheter. Soft tissues: Unremarkable. Bones:Within normal limits for the patient's age. No aggressive osseous lesions. ABDOMEN: Liver: Normal density. No measurable mass. Portal, Superior Mesenteric, and Splenic Veins: Unremarkable. Gallbladder and Biliary Tract: No radiodense calculus or dilation. There is pneumobilia. The patient has a biliary stent. Pancreas: There is pancreatic atrophy and dilatation of the pancreatic duct. The pancreatic head osei ears otherwise unchanged. Spleen: Normal. Adrenals: No masses seen. Kidneys: Normal size, contour and axis. No radiodense stones or obstructive uropathy. There is a simp le right renal cysts. No follow-up is recommended. Abdominal Aorta: Abdominal portion non-dilated. Atherosclerosis. Bowel: There is diverticulosis of the colon without evidence of acute diverticulitis. There is a mod erate amount of stool throughout the colon suggesting constipation. The appendix is air-filled. No appendiceal wall thickening or Adela appendiceal inflammation is seen. The bowel shows no evidence of obstruction or bowel wall thickening. Peritoneal Cavity: No ascites, collection or mesenteric inflammatory response. No free air. Lymph Nodes: Within normal limits. Bones: Within normal limits for the patient's age. No aggressive osseous lesions are seen. Soft Tissues: Unremarkable. PELVIS: Bladder: There is diffuse thickening of the wall of the urinary bladder. There is surrounding infilt ration of the soft tissues. Reproductive Organs: Status post hysterectomy. Lymph Nodes: Within normal limits. Bones: Within normal limits. IMPRESSION: 1. No evidence of thoracic metastatic disease. 2. Status post biliary stent with pneumobilia. No change in appearance of the pancreatic head. Ther e is atrophy of the pancreatic body and tail with dilatation of the pancreatic duct. 3. Diffuse thickening of the wall of the urinary bladder with surrounding soft tissue infiltration. Differential considerations should include cystitis or neoplasm. 4. Constipation. RADIATION DOSE DELIVERED: 1,533.55mGy.cm Total DLP DATA REPOSITORY: All CT scans at this facility are submitted to the National Radiology Data Registry (NRDR) Dose Index Registry (DIR) with the [employer] [place] [employer] (ACR). RADIATION OPTIMIZATION: All CT scans at this facility use at least one of these dose optimization te chniques: automated exposure control; mA and/or kV adjustment per patient size (includes targeted exa ms where dose is matched to clinical indication); or iterative reconstruction.
[2023-06-25] MEDS: Barium Sulfate 2% W/V-Berry Smoothie 450 ML BTL PO (09:25)
[2023-06-25] MEDS: Barium Sulfate 2% W/V-Creamy Vanilla Smoothie 450 ML BTL PO (09:26)
[2023-06-25] MEDS: Omnipaque 350 MG/ML 500 ML BTL-Imaging package 100 ML IJ (11:18)
[2023-06-25] MEDS: Normal Saline - Diluent 50 ML VIAL IJ (11:35)
[2023-06-25] MEDS: Normal Saline Flush 10 ML SYR IVP (11:35)
== END ==
PROVIDERS: PCP Family Medicine; Visit Provider Nurse Practitioner Family
DX: C25.0 Malignant neoplasm of head of pancreas (principal)
CPT/HCPCS: 74177; 80053; 71260; 85025; 86301

== ENCOUNTER → 2023-06-29 12:59 | Outpatient (CLI) | payer OTHER, SELFPAY ==
--- NOTE | 2023-06-29 | DI.US_ITS ---
Exam(s) US LOWER EXTREMITY VENOUS LT EXAM: US LOWER EXTREMITY VENOUS LT CLINICAL HISTORY: PAIN LEFT CALF M79.662 ADENOCARCINOMA HEAD PANCREAS C25.0 WARM TO TOUCH TECHNIQUE: Left lower extremity venous ultrasound performed using grayscale, color-flow, and spectra l Doppler analysis. COMPARISON: No exams were available for comparison FINDINGS: The left common femoral, femoral and popliteal veins demonstrate normal compressibility, augmentation , and color Doppler. The posterior tibial veins are patent. The saphenofemoral junction is unremarka ble. There is no evidence of a Oakley cyst. The soft tissues are unremarkable. IMPRESSION: No evidence of a left lower extremity DVT. DATA REPOSITORY:
== END ==
PROVIDERS: PCP Family Medicine; Visit Provider Nurse Practitioner Family
DX: M79.662 Pain in left lower leg (principal); C25.0 Malignant neoplasm of head of pancreas
CPT/HCPCS: 93971

== ENCOUNTER → 2023-07-03 02:03 | Outpatient (CLI) | payer OTHER, SELFPAY ==
[2023-07-03] MEDS: Gadoterate meglumine 20 ML SYRINGE 14 ML IVP (11:08)
[2023-07-03] MEDS: Normal Saline Flush 10 ML SYR IVP (11:09)
--- NOTE | 2023-07-03 11:30 | DI.MRI_ITS ---
Exam(s) MR BRAIN WO/W EXAM: MR BRAIN WO/W CLINICAL HISTORY: PANCREATIC CANCER C25.0 ABNL BRAIN MRI R90.89. TECHNIQUE: Multiplanar multisequence MRI of the brain was performed. CONTRAST MATERIAL: IV Contrast: 14 ML of Dotarem contrast administered. COMPARISON: MR MR BRAIN WO/W from 04/17/2023 FINDINGS: VENTRICLES AND EXTRA AXIAL SPACES: Normal in size and morphology for the patient's age. HEMORRHAGE: None. CEREBRAL PARENCHYMA: No focus of restricted diffusion to suggest acute infarct. No space-occupying le miles identified. Stable white matter changes consistent with microvascular disease. MIDLINE SHIFT: None. BRAINSTEM/CEREBELLUM: Normal. CALVARIUM: Normal. ENHANCEMENT: No suspicious enhancement identified. Tiny focus of enhancement adjacent to the frontal horn of the right lateral ventricle is not seen on the current exam. VISUALIZED PARANASAL SINUSES/MASTOIDS: Clear. Orbits: Unremarkable. Pituitary: Normal. Vasculature: Normal flow voids. IMPRESSION: No evidence of metastatic disease. DATA REPOSITORY:
== END ==
PROVIDERS: PCP Family Medicine; Visit Provider Nurse Practitioner Family
DX: C25.0 Malignant neoplasm of head of pancreas (principal); R90.89 Other abnormal findings on diagnostic imaging of central nervous system
CPT/HCPCS: 70553

== ENCOUNTER 2023-07-03 03:07 | Outpatient (RCR) | payer OTHER, SELFPAY ==
[2023-06-08 09:13] LABS: Abs Immature Grans 0.02 10^3/uL (0.0-0.06); Absolute Basophil Count 0.08 10^3/uL (0.0-0.2); Absolute Eosinophil Count 0.08 10^3/uL (0.0-0.7); Absolute Lymphocyte Count 2.03 10^3/uL (1.2-3.4); Absolute Monocyte Count 0.34 10^3/uL (0.1-0.8); Absolute Neutrophil Count 2.63 10^3/uL (1.2-6.7); Basophils % 1.5; Eosinophils % 1.5; HCT 35.2 % (36.0-46.0); HGB 11.9 g/dL (11.2-15.7); Immature Grans % 0.4; Lymphocytes % 39.2; MCHC 33.8 % (32.0-36.0); MCV 86 fL (80-95); MPV 9.9 fL (8.0-11.0); Monocytes % 6.6; Neutrophils % 50.8; Platelet Count 487 10^3/uL (130-400); RBC 4.11 10^6/uL (3.93-5.22); RDW 12.5 % (11.7-14.6); RDW-SD 38.5 fL; WBC 5.18 10^3/uL (4.4-10.8)
[2023-06-08 09:27] LABS: ALT 108 U/L (14-59); AST 53 U/L (15-37); Alkaline Phosphatase 206 U/L (46-116); BUN 11 mg/dL (7-18); Bilirubin, Total 0.3 mg/dL (0.2-1.0); CREATININE 0.6 mg/dL (0.55-1.02); Calcium 8.8 mg/dL (8.5-10.1); Chloride 105 mmol/L (98-107); Estimated GFR 91.25 (mL/min/1.73m2); Glucose 118 mg/dL (74-106); Potassium 3.9 mmol/L (3.5-5.1); Sodium 143 mmol/L (136-145)
[2023-06-11 09:56] LABS: CA 19-9 37 U/mL (<35)
[2023-06-15 13:38] LABS: Abs Immature Grans 0.03 10^3/uL (0.0-0.06); Absolute Basophil Count 0.03 10^3/uL (0.0-0.2); Absolute Eosinophil Count 0.13 10^3/uL (0.0-0.7); Absolute Lymphocyte Count 1.61 10^3/uL (1.2-3.4); Absolute Monocyte Count 0.23 10^3/uL (0.1-0.8); Absolute Neutrophil Count 1.36 10^3/uL (1.2-6.7); Basophils % 0.9; Eosinophils % 3.8; HCT 32.5 % (36.0-46.0); HGB 10.7 g/dL (11.2-15.7); Immature Grans % 0.9; Lymphocytes % 47.5; MCH 28.2 pg (27.0-33.0); MCHC 32.9 % (32.0-36.0); MCV 86 fL (80-95); MPV 10.5 fL (8.0-11.0); Monocytes % 6.8; Neutrophils % 40.1; Platelet Count 210 10^3/uL (130-400); RDW 12.6 % (11.7-14.6); RDW-SD 38.9 fL; WBC 3.39 10^3/uL (4.4-10.8)
[2023-06-15] MEDS: Normal Saline Flush 10 ML SYR IVP (14:06)
[2023-06-15 14:10] LABS: ALT 125 U/L (14-59); AST 65 U/L (15-37); Albumin 2.8 g/dL (3.4-5.0); Alkaline Phosphatase 198 U/L (46-116); Anion Gap 8.5 mmol/L (3-11); BUN 17 mg/dL (7-18); Bilirubin, Total 0.3 mg/dL (0.2-1.0); CO2 27.5 mmol/L (21.0-32.0); CREATININE 0.9 mg/dL (0.55-1.02); Calcium 8.6 mg/dL (8.5-10.1); Chloride 102 mmol/L (98-107); Estimated GFR 65.03 (mL/min/1.73m2); Glucose 214 mg/dL (74-106); Potassium 4.7 mmol/L (3.5-5.1); Sodium 138 mmol/L (136-145); Total Protein 6.7 g/dL (6.4-8.2)
[2023-06-18 09:53] LABS: CA 19-9 31 U/mL (<35)
[2023-06-25] MEDS: Normal Saline Flush 10 ML SYR IVP (08:55)
[2023-06-25 09:32] LABS: Abs Immature Grans 0.92 10^3/uL (0.0-0.06); HCT 31.3 % (36.0-46.0); HGB 10.3 g/dL (11.2-15.7); MCH 28.4 pg (27.0-33.0); MCHC 32.9 % (32.0-36.0); MCV 86 fL (80-95); MPV 9.7 fL (8.0-11.0); Platelet Count 333 10^3/uL (130-400); RBC 3.63 10^6/uL (3.93-5.22); RDW 13.6 % (11.7-14.6); RDW-SD 40.9 fL; WBC 8.93 10^3/uL (4.4-10.8)
[2023-06-25 09:47] LABS: ALT 88 U/L (14-59); AST 54 U/L (15-37); Albumin 2.6 g/dL (3.4-5.0); Alkaline Phosphatase 189 U/L (46-116); Anion Gap 6.7 mmol/L (3-11); BUN 14 mg/dL (7-18); Bilirubin, Total 0.3 mg/dL (0.2-1.0); CO2 31.3 mmol/L (21.0-32.0); CREATININE 0.8 mg/dL (0.55-1.02); Calcium 8.7 mg/dL (8.5-10.1); Chloride 105 mmol/L (98-107); Glucose 112 mg/dL (74-106); Potassium 4.2 mmol/L (3.5-5.1); Sodium 143 mmol/L (136-145); Total Protein 6.2 g/dL (6.4-8.2)
[2023-06-25 10:15] LABS: Absolute Lymphocyte Count 2.59 10^3/uL (1.2-3.4); Absolute Monocyte Count 0.71 10^3/uL (0.1-0.8); Absolute Neutrophil Count 4.38 10^3/uL (1.2-6.7); Atypical Lymphocytes % 6; Bands % 3
[2023-06-25 10:16] LABS: Diff Comment Manual Differential; Metamyelocytes % 2; Myelocytes % 3; RBC Morphology Normal
[2023-06-27 10:03] LABS: CA 19-9 34 U/mL (<35)
[2023-06-29] MEDS: Normal Saline Flush 10 ML SYR IVP (09:00)
[2023-06-29 09:43] LABS: Abs Immature Grans 0.46 10^3/uL (0.0-0.06); Absolute Basophil Count 0.09 10^3/uL (0.0-0.2); Absolute Eosinophil Count 0.94 10^3/uL (0.0-0.7); Absolute Lymphocyte Count 2.22 10^3/uL (1.2-3.4); Absolute Neutrophil Count 4.11 10^3/uL (1.2-6.7); Eosinophils % 10.5; HCT 30.6 % (36.0-46.0); HGB 10.2 g/dL (11.2-15.7); Immature Grans % 5.2; Lymphocytes % 24.9; MCH 29.1 pg (27.0-33.0); MCHC 33.3 % (32.0-36.0); MCV 87 fL (80-95); MPV 9.4 fL (8.0-11.0); Monocytes % 12.3; Neutrophils % 46.1; RBC 3.51 10^6/uL (3.93-5.22); RDW 15.1 % (11.7-14.6); RDW-SD 45.2 fL; WBC 8.92 10^3/uL (4.4-10.8)
[2023-06-29 10:10] LABS: ALT 51 U/L (14-59); AST 30 U/L (15-37); Albumin 2.6 g/dL (3.4-5.0); Alkaline Phosphatase 163 U/L (46-116); Anion Gap 7.9 mmol/L (3-11); BUN 14 mg/dL (7-18); Bilirubin, Total 0.3 mg/dL (0.2-1.0); CO2 28.1 mmol/L (21.0-32.0); CREATININE 0.8 mg/dL (0.55-1.02); Calcium 8.5 mg/dL (8.5-10.1); Chloride 108 mmol/L (98-107); Glucose 109 mg/dL (74-106); Potassium 4.1 mmol/L (3.5-5.1); Sodium 144 mmol/L (136-145); Total Protein 6.2 g/dL (6.4-8.2)
[2023-06-29 10:17] LABS: Diff Comment Diff Reviewed; Platelet Count 678 10^3/uL (130-400); RBC Morphology Normal
[2023-07-02 09:52] LABS: CA 19-9 47 U/mL (<35)
[2023-07-03] MEDS: Normal Saline Flush 10 ML SYR IVP (10:20)
== END 2023-07-05 23:59 | disposition home or self-care (01) ==
LOC: INF 03:07
PROVIDERS: Nurse Practitioner Family; PCP Family Medicine; Visit Provider Internal Medicine Hematology & Oncology
DX: C25.0 Malignant neoplasm of head of pancreas (principal); Z45.2 Encounter for adjustment and management of vascular access device
CPT/HCPCS: 36591; 80053; 96523; 85025; 86301

== ENCOUNTER 2023-07-18 14:34 | Outpatient (REF) | payer OTHER, SELFPAY ==
[2023-07-18 16:22] LABS: Bilirubin Negative (Negative); Blood Moderate (Negative); Clarity Sl Cloudy (Clear); Glucose Negative (Negative); Ketones Negative (Negative); Leukocyte Esterase Negative (Negative); Nitrite Negative (Negative); Specific Gravity 1.025 (1.005-1.025); Urobilinogen 0.2 mg/dL (Up to 0.2); pH 6.5 (5-8)
[2023-07-18 16:38] LABS: Bacteria Rare HPF (Negative); C & S Indicated? C&S Done As Ordered; Epithelial Cells Few HPF (Negative); Mucus Moderate (Negative); RBC 20-50 HPF (0-2)
== END 2023-07-18 14:35 | disposition home or self-care (01) ==
LOC: LBN 14:34
PROVIDERS: PCP Family Medicine; Visit Provider Nurse Practitioner Gerontology
DX: N39.0 Urinary tract infection, site not specified (principal); R31.9 Hematuria, unspecified
CPT/HCPCS: 81003; 81015; 87086

== ENCOUNTER 2023-08-03 12:10 | Outpatient (RCR) | payer OTHER, SELFPAY ==
[2023-07-06] MEDS: Normal Saline Flush 10 ML SYR IVP (09:20)
[2023-07-06 09:53] LABS: Abs Immature Grans 0.09 10^3/uL (0.0-0.06); Absolute Basophil Count 0.08 10^3/uL (0.0-0.2); Absolute Monocyte Count 0.49 10^3/uL (0.1-0.8); Absolute Neutrophil Count 1.48 10^3/uL (1.2-6.7); Basophils % 2.1; Eosinophils % 2.7; HCT 29.1 % (36.0-46.0); HGB 9.7 g/dL (11.2-15.7); Immature Grans % 2.4; Lymphocytes % 40.1; MCH 28.9 pg (27.0-33.0); MCHC 33.3 % (32.0-36.0); MCV 87 fL (80-95); Monocytes % 13.1; Neutrophils % 39.6; Platelet Count 597 10^3/uL (130-400); RBC 3.36 10^6/uL (3.93-5.22); RDW-SD 46.5 fL; WBC 3.74 10^3/uL (4.4-10.8)
[2023-07-06 10:12] LABS: ALT 74 U/L (14-59); AST 67 U/L (15-37); Albumin 2.6 g/dL (3.4-5.0); Alkaline Phosphatase 216 U/L (46-116); Anion Gap 7.2 mmol/L (3-11); BUN 11 mg/dL (7-18); Bilirubin, Total 0.3 mg/dL (0.2-1.0); CO2 28.8 mmol/L (21.0-32.0); CREATININE 0.7 mg/dL (0.55-1.02); Chloride 107 mmol/L (98-107); Estimated GFR 87.92 (mL/min/1.73m2); Glucose 87 mg/dL (74-106); Sodium 143 mmol/L (136-145); Total Protein 6.5 g/dL (6.4-8.2)
[2023-07-06 20:02] LABS: CA 19-9 29 U/mL (<35)
[2023-07-13] MEDS: Normal Saline Flush 10 ML SYR IVP (09:12)
[2023-07-13 09:23] LABS: Abs Immature Grans 0.04 10^3/uL (0.0-0.06); Absolute Basophil Count 0.02 10^3/uL (0.0-0.2); Absolute Eosinophil Count 0.13 10^3/uL (0.0-0.7); Absolute Lymphocyte Count 1.35 10^3/uL (1.2-3.4); Absolute Monocyte Count 0.23 10^3/uL (0.1-0.8); Absolute Neutrophil Count 0.82 10^3/uL (1.2-6.7); Basophils % 0.8; HCT 27.2 % (36.0-46.0); HGB 9.1 g/dL (11.2-15.7); Immature Grans % 1.5; Lymphocytes % 52.1; MCH 29.1 pg (27.0-33.0); MCHC 33.5 % (32.0-36.0); MCV 87 fL (80-95); MPV 9.8 fL (8.0-11.0); Monocytes % 8.9; Neutrophils % 31.7; Platelet Count 268 10^3/uL (130-400); RBC 3.13 10^6/uL (3.93-5.22); RDW 15.7 % (11.7-14.6); RDW-SD 48.5 fL; WBC 2.59 10^3/uL (4.4-10.8)
[2023-07-13 09:40] LABS: ALT 99 U/L (14-59); AST 96 U/L (15-37); Albumin 2.4 g/dL (3.4-5.0); Alkaline Phosphatase 171 U/L (46-116); Anion Gap 4.6 mmol/L (3-11); BUN 12 mg/dL (7-18); Bilirubin, Total 0.3 mg/dL (0.2-1.0); CO2 30.4 mmol/L (21.0-32.0); CREATININE 0.8 mg/dL (0.55-1.02); Calcium 8.7 mg/dL (8.5-10.1); Chloride 107 mmol/L (98-107); Diff Comment Diff Reviewed; Glucose 112 mg/dL (74-106); Potassium 3.9 mmol/L (3.5-5.1); RBC Morphology Normal; Sodium 142 mmol/L (136-145); Total Protein 6.2 g/dL (6.4-8.2)
[2023-07-13 20:40] LABS: Lab Add On Test DONE
[2023-07-13 20:54] LABS: Hemoglobin A1C 8.3 % (<5.7)
[2023-07-16 09:50] LABS: CA 19-9 22 U/mL (<35)
[2023-07-27] MEDS: Normal Saline Flush 10 ML SYR IVP (12:15)
[2023-07-27 12:20] LABS: Abs Immature Grans 0.11 10^3/uL (0.0-0.06); Absolute Basophil Count 0.05 10^3/uL (0.0-0.2); Absolute Eosinophil Count 0.44 10^3/uL (0.0-0.7); Absolute Lymphocyte Count 1.42 10^3/uL (1.2-3.4); Absolute Monocyte Count 1.04 10^3/uL (0.1-0.8); Absolute Neutrophil Count 4.04 10^3/uL (1.2-6.7); Basophils % 0.7; Eosinophils % 6.2; HCT 29.7 % (36.0-46.0); HGB 9.5 g/dL (11.2-15.7); Immature Grans % 1.5; MCH 29.6 pg (27.0-33.0); MCV 93 fL (80-95); MPV 9.2 fL (8.0-11.0); Monocytes % 14.6; Platelet Count 581 10^3/uL (130-400); RBC 3.21 10^6/uL (3.93-5.22); RDW 19.3 % (11.7-14.6)
[2023-07-27 12:34] LABS: ALT 32 U/L (14-59); AST 32 U/L (15-37); Albumin 2.3 g/dL (3.4-5.0); Alkaline Phosphatase 127 U/L (46-116); Anion Gap 6.2 mmol/L (3-11); BUN 14 mg/dL (7-18); Bilirubin, Total 0.4 mg/dL (0.2-1.0); CO2 28.8 mmol/L (21.0-32.0); CREATININE 0.6 mg/dL (0.55-1.02); Calcium 8.1 mg/dL (8.5-10.1); Chloride 107 mmol/L (98-107); Estimated GFR 91.25 (mL/min/1.73m2); Glucose 126 mg/dL (74-106); Potassium 4.1 mmol/L (3.5-5.1); Sodium 142 mmol/L (136-145); Total Protein 5.7 g/dL (6.4-8.2)
[2023-07-30 10:03] LABS: CA 19-9 29 U/mL (<35)
[2023-08-03] MEDS: Normal Saline Flush 10 ML SYR IVP (12:20)
[2023-08-03 12:24] LABS: Absolute Basophil Count 0.06 10^3/uL (0.0-0.2); Absolute Eosinophil Count 0.07 10^3/uL (0.0-0.7); Absolute Lymphocyte Count 1.09 10^3/uL (1.2-3.4); Absolute Monocyte Count 0.39 10^3/uL (0.1-0.8); Absolute Neutrophil Count 1.96 10^3/uL (1.2-6.7); Basophils % 1.6; Eosinophils % 1.9; HCT 25.3 % (36.0-46.0); HGB 8.4 g/dL (11.2-15.7); Immature Grans % 2.7; Lymphocytes % 29.7; MCHC 33.2 % (32.0-36.0); MCV 90 fL (80-95); MPV 10.1 fL (8.0-11.0); Monocytes % 10.6; Neutrophils % 53.5; Platelet Count 386 10^3/uL (130-400); RDW 17.9 % (11.7-14.6); WBC 3.67 10^3/uL (4.4-10.8)
[2023-08-03 12:38] LABS: ALT 43 U/L (14-59); AST 48 U/L (15-37); Alkaline Phosphatase 179 U/L (46-116); Anion Gap 7.5 mmol/L (3-11); BUN 10 mg/dL (7-18); Bilirubin, Total 0.3 mg/dL (0.2-1.0); CO2 28.5 mmol/L (21.0-32.0); CREATININE 0.6 mg/dL (0.55-1.02); Calcium 8.2 mg/dL (8.5-10.1); Chloride 106 mmol/L (98-107); Estimated GFR 91.25 (mL/min/1.73m2); Glucose 142 mg/dL (74-106); Potassium 3.7 mmol/L (3.5-5.1); Sodium 142 mmol/L (136-145); Total Protein 5.8 g/dL (6.4-8.2)
== END 2023-08-05 23:59 | disposition home or self-care (01) ==
LOC: INF 12:10
PROVIDERS: Nurse Practitioner Family; PCP Family Medicine; Visit Provider Internal Medicine Hematology & Oncology
DX: C25.0 Malignant neoplasm of head of pancreas (principal); Z45.2 Encounter for adjustment and management of vascular access device
CPT/HCPCS: 36591; 80053; 83036; 85025; 86301

== ENCOUNTER 2023-08-09 17:08 | Outpatient (REF) | payer OTHER, SELFPAY ==
[2023-08-09 16:42] LABS: Bilirubin Negative (Negative); Blood Large (Negative); Clarity Cloudy (Clear); Glucose Negative (Negative); Ketones Negative (Negative); Leukocyte Esterase Small (Negative); Nitrite Negative (Negative); Specific Gravity >= 1.030 (1.005-1.025); Urobilinogen 0.2 mg/dL (Up to 0.2); pH 5.5 (5-8)
[2023-08-09 17:04] LABS: Epithelial Cells Many HPF (Negative); RBC 20-50 HPF (0-2)
[2023-08-09 17:05] LABS: Bacteria Many HPF (Negative); C & S Indicated? C&S Done As Ordered; Casts 0-2 Hyaline LPF (Negative); Crystals Negative HPF (Negative); Mucus Negative (Negative); Other Cells Few Transitional (Negative)
== END 2023-08-09 17:09 | disposition home or self-care (01) ==
LOC: LBN 17:08
PROVIDERS: PCP Family Medicine; Visit Provider Nurse Practitioner Gerontology
DX: N39.0 Urinary tract infection, site not specified (principal); R31.9 Hematuria, unspecified; N32.81 Overactive bladder
CPT/HCPCS: 81003; 81015; 87086

== ENCOUNTER → 2023-08-30 03:06 | Outpatient (CLI) | payer OTHER, SELFPAY ==
--- NOTE | 2023-08-30 | DI.CT_ITS ---
Exam(s) CT CHEST/ABD/PEL W EXAM: CT CHEST/ABD/PEL W CLINICAL HISTORY: C25.0 Adenocarcinoma head of pancreas,assess treatment response. TECHNIQUE: Imaging Protocol: Axial computed tomography images with coronal and sagittal reformatted images were created and reviewed CONTRAST MATERIAL: Intravenous: Omnipaque 350 Contrast volume:100 ml Oral: Yes. Oral contrast was also administered for bowel opacification. COMPARISON: CT CT CHEST/ABD/PEL W from 06/25/2023 FINDINGS: CHEST: LUNGS: There is a new small right pleural effusion. No pleural effusion on the left side. Previousl y described small benign calcified granulomas are again noted in both lungs. There are no new ominou s pulmonary nodules. No new findings in the trachea and mainstem bronchi. MEDIASTINUM: There is no significant hilar nor mediastinal adenopathy. Benign-appearing thyroid nodul es appear stable CARDIAC: Heart size is normal. There is a small pericardial effusion now evident. Maximum thickness is 4 mm which is over the apex region.Thoracic aorta appears unremarkable. No dissection. OSSEOUS: No significant osseous lesions.No fractures.. ABDOMEN: There is new symmetrical anasarca in the subcutaneous fat over the abdomen and pelvis. There is, how ever, no ascites. No new mesenteric masses LIVER: No new focal lesions in the liver. Pneumobilia again noted but without increasing dilatation of intrahepatic ducts. GALLBLADDER/BILIARY: Position of the self expanding stent in the CBD is unchanged. Its distal tip is in the duodenal lumen. Distended does not appear occluded. Gallbladder is minimally distended with some pericholecystic fluid. No calcified gallstones evident in the gallbladder lumen. PANCREAS: Appearance of the pancreas is unchanged. In pancreatic head and uncinate process appear un changed and the dilated main pancreatic duct appears unchanged. Few parenchymal calcifications are n oted in the pancreas. There is no peripancreatic fluid collection. No obvious new local adenopathy nor new vascular encasement. The superior mesenteric vein and artery are patent. SPLEEN: Spleen is not enlarged. There are no intrasplenic lesions. Splenic and portal veins are cortez nt. Portal vein confluence is patent. ADRENALS: There are no significant adrenal masses. KIDNEYS: No calculi nor hydronephrosis. No solid renal masses. Benign cysts in the right kidney is un changed. Does not require follow-up. ABDOMINAL AORTA: Abdominal aorta is not enlarged. LYMPH NODES: There is no retroperitoneal nor paraaortic adenopathy. ABDOMINAL WALL: No evidence of significant anterior abdominal wall nor inguinal hernia. GI: Constipation in the colon again noted, similar to previous. No evidence of bowel obstruction. D iameter of small bowel loops is normal. PELVIS: LYMPH NODES: There is no intrapelvic nor inguinal adenopathy. GI: No evidence of appendicitis.No evidence of sigmoid diverticulitis. URINARY BLADDER: Severe diffuse uniform thickening of the urinary bladder is again noted with infiltr ation of the adjacent soft tissues REPRODUCTIVE: Uterus is again noted be surgically absent. No abnormal adnexal masses. There is increased symmetrical tissue density in the presacral fat and a immediately subjacent to the a bilateral piriformis muscles. OSSEOUS: No significant osseous lesions. No fractures. Multilevel chronic degenerative disc disease again noted. No listhesis. IMPRESSION: 1. Compared to the prior CT scan of 06/25/2023 there is now a small-moderate size unilateral right pl eural effusion and there is a small pericardial effusion with maximum thickness 4 mm. There is also symmetrical anasarca over the abdomen and pelvis now evident. There is, however, no ascites with the exception of a small amount of pericholecystic fluid. This is probably related to the gallbladder b eing slightly distended, given the presence of the prominent self expanding CBD stent. 2. CBD stent itself appears stable and there is no increasing dilatation of the biliary tree. Pneumo bilia is again noted in the liver, as expected, and unchanged. 3. Appearance of the pancreas and dilated pancreatic duct is unchanged. No peripancreatic fluid melissa ections. 4. There are no metastatic lesions in the liver and there are no obvious metastatic lung nodules. 5. No significant osseous lesions identified. RADIATION DOSE DELIVERED: 1,431.61mGy.cm Total DLP DATA REPOSITORY: All CT scans at this facility are submitted to the National Radiology Data Registry (NRDR) Dose Index Registry (DIR) with the [employer] (ACR). RADIATION OPTIMIZATION: All CT scans at this facility use at least one of these dose optimization te chniques: automated exposure control; mA and/or kV adjustment per patient size (includes targeted exa ms where dose is matched to clinical indication); or iterative reconstruction.
[2023-08-30] MEDS: Barium Sulfate 2% W/V-Creamy Vanilla Smoothie 450 ML BTL PO ×2 (11:19→11:20)
[2023-08-30] MEDS: Omnipaque 350 MG/ML 500 ML BTL-Imaging package IJ (13:44)
[2023-08-30] MEDS: Normal Saline - Diluent 50 ML VIAL IJ (13:46)
== END ==
PROVIDERS: PCP Family Medicine; Visit Provider Nurse Practitioner Family
DX: C25.0 Malignant neoplasm of head of pancreas (principal)
CPT/HCPCS: 74177; 71260

== ENCOUNTER 2023-08-30 05:24 | Outpatient (RCR) | payer OTHER, SELFPAY ==
[2023-08-10 12:10] LABS: Abs Immature Grans 0.05 10^3/uL (0.0-0.06); Absolute Basophil Count 0.02 10^3/uL (0.0-0.2); Absolute Eosinophil Count 0.04 10^3/uL (0.0-0.7); Absolute Lymphocyte Count 0.75 10^3/uL (1.2-3.4); Absolute Monocyte Count 0.15 10^3/uL (0.1-0.8); Absolute Neutrophil Count 1.69 10^3/uL (1.2-6.7); Basophils % 0.7; Eosinophils % 1.5; HCT 24.7 % (36.0-46.0); HGB 8.1 g/dL (11.2-15.7); Immature Grans % 1.9; Lymphocytes % 27.8; MCH 30.3 pg (27.0-33.0); MCHC 32.8 % (32.0-36.0); MCV 93 fL (80-95); MPV 9.4 fL (8.0-11.0); Monocytes % 5.6; Neutrophils % 62.5; Platelet Count 212 10^3/uL (130-400); RBC 2.67 10^6/uL (3.93-5.22); RDW 17.8 % (11.7-14.6); RDW-SD 60.3 fL
[2023-08-10] MEDS: Normal Saline Flush 10 ML SYR IVP (12:13)
[2023-08-10 12:50] LABS: ALT 91 U/L (14-59); AST 125 U/L (15-37); Alkaline Phosphatase 199 U/L (46-116); Anion Gap 7.4 mmol/L (3-11); BUN 10 mg/dL (7-18); Bilirubin, Total 0.3 mg/dL (0.2-1.0); CO2 28.6 mmol/L (21.0-32.0); CREATININE 0.8 mg/dL (0.55-1.02); Calcium 8.1 mg/dL (8.5-10.1); Chloride 106 mmol/L (98-107); Glucose 116 mg/dL (74-106); Potassium 3.8 mmol/L (3.5-5.1); Sodium 142 mmol/L (136-145); Total Protein 5.6 g/dL (6.4-8.2)
[2023-08-10 23:29] LABS: CA 19-9 15 U/mL (<35)
[2023-08-17] MEDS: Normal Saline Flush 10 ML SYR IVP (10:11)
[2023-08-17 10:28] LABS: Abs Immature Grans 0.06 10^3/uL (0.0-0.06); Absolute Basophil Count 0.02 10^3/uL (0.0-0.2); Absolute Lymphocyte Count 1.46 10^3/uL (1.2-3.4); Absolute Monocyte Count 0.93 10^3/uL (0.1-0.8); Absolute Neutrophil Count 2.18 10^3/uL (1.2-6.7); Basophils % 0.4; Eosinophils % 6.1; HCT 28.9 % (36.0-46.0); HGB 9.3 g/dL (11.2-15.7); Immature Grans % 1.2; Lymphocytes % 29.5; MCH 30.8 pg (27.0-33.0); MCHC 32.2 % (32.0-36.0); MCV 96 fL (80-95); MPV 9.4 fL (8.0-11.0); Monocytes % 18.8; Platelet Count 487 10^3/uL (130-400); RBC 3.02 10^6/uL (3.93-5.22); RDW 18.6 % (11.7-14.6); RDW-SD 65.6 fL; WBC 4.95 10^3/uL (4.4-10.8)
[2023-08-17 10:43] LABS: ALT 35 U/L (14-59); AST 27 U/L (15-37); Albumin 2.2 g/dL (3.4-5.0); Alkaline Phosphatase 163 U/L (46-116); Anion Gap 7.1 mmol/L (3-11); BUN 8 mg/dL (7-18); Bilirubin, Total 0.5 mg/dL (0.2-1.0); CO2 28.9 mmol/L (21.0-32.0); CREATININE 0.7 mg/dL (0.55-1.02); Calcium 7.9 mg/dL (8.5-10.1); Chloride 105 mmol/L (98-107); Estimated GFR 87.92 (mL/min/1.73m2); Glucose 96 mg/dL (74-106); Potassium 3.7 mmol/L (3.5-5.1); Sodium 141 mmol/L (136-145); Total Protein 5.6 g/dL (6.4-8.2)
[2023-08-17 21:18] LABS: CA 19-9 11 U/mL (<35)
[2023-08-30] MEDS: Normal Saline Flush 10 ML SYR IVP (10:30)
== END 2023-09-04 23:59 | disposition home or self-care (01) ==
LOC: INF 05:24
PROVIDERS: Nurse Practitioner Family; PCP Family Medicine; Visit Provider Internal Medicine Hematology & Oncology
DX: C25.0 Malignant neoplasm of head of pancreas (principal); Z45.2 Encounter for adjustment and management of vascular access device
CPT/HCPCS: 36591; 80053; 96523; 85025; 86301

== ENCOUNTER 2023-09-04 09:35 | Outpatient (REF) | payer OTHER, SELFPAY ==
--- NOTE | 2023-09-04 09:30 | PAPNONF_PTH ---
PATIENT: Tina Juarez LOC: [facility] U#:[id number] AGE/SX: 78/F ROOM: RE09/04/[address]: Santiago Vergara MD : [id number] BED: DIS: 09/04/2023 SPEC #: [id number] RECD: 09/04/23 12:57 STATUS: KIMBERLI REMikaela #: [id number] ANNETTE: 09/04/23 09:[address]: Santiago Vergara DEPT: [facility] Cytology RECD BY: Maureen Limon ENTERED: 09/04/23 12:57 SP TYPE: MICHAEL DAVALOS DR: Sarah Weldon MD, DC Tissues: 1 - BODY FLUID CYTO(SPUTUM/URINE)[facility] Procedures: BODY FLUID CYTO(URINE/SPUTUM) Comments: [id number] (TV = 40 ml, 30 ml CYTOLYTE ADDED) (REFRIGERATED)
== END 2023-09-04 09:36 | disposition home or self-care (01) ==
LOC: LBN 09:35
PROVIDERS: PCP Family Medicine; Visit Provider Urology
DX: R31.9 Hematuria, unspecified (principal)
CPT/HCPCS: 88104

== ENCOUNTER 2023-09-07 04:51 | Outpatient (RCR) | payer OTHER, SELFPAY ==
[2023-09-07] MEDS: Normal Saline Flush 10 ML SYR IVP (10:39)
[2023-09-07 11:09] LABS: Abs Immature Grans 0.03 10^3/uL (0.0-0.06); Absolute Basophil Count 0.06 10^3/uL (0.0-0.2); Absolute Lymphocyte Count 1.34 10^3/uL (1.2-3.4); Absolute Monocyte Count 0.53 10^3/uL (0.1-0.8); Absolute Neutrophil Count 2.75 10^3/uL (1.2-6.7); Basophils % 1.2 %; HCT 30.3 % (36.0-46.0); HGB 9.9 g/dL (11.2-15.7); Immature Grans % 0.6 %; Lymphocytes % 26.7 %; MCH 30.8 pg (27.0-33.0); MCHC 32.7 % (32.0-36.0); MCV 94 fL (80-95); MPV 9.5 fL (8.0-11.0); Monocytes % 10.6 %; Neutrophils % 54.9 %; Platelet Count 418 10^3/uL (130-400); RBC 3.21 10^6/uL (3.93-5.22); RDW 15.3 % (11.7-14.6); RDW-SD 53.3 fL; WBC 5.01 10^3/uL (4.4-10.8)
[2023-09-07 11:24] LABS: ALT 19 U/L (14-59); AST 23 U/L (15-37); Albumin 2.2 g/dL (3.4-5.0); Alkaline Phosphatase 128 U/L (46-116); Anion Gap 6.6 mmol/L (3-11); BUN 13 mg/dL (7-18); Bilirubin, Total 0.3 mg/dL (0.2-1.0); CO2 28.4 mmol/L (21.0-32.0); CREATININE 0.7 mg/dL (0.55-1.02); Chloride 107 mmol/L (98-107); Estimated GFR 87.92 (mL/min/1.73m2); Glucose 199 mg/dL (74-106); Potassium 3.3 mmol/L (3.5-5.1); Sodium 142 mmol/L (136-145); Total Protein 5.7 g/dL (6.4-8.2)
[2023-09-07 20:27] LABS: CA 19-9 21 U/mL (<35)
== END 2023-10-05 23:59 | disposition home or self-care (01) ==
LOC: INF 04:51
PROVIDERS: Nurse Practitioner Family; PCP Family Medicine; Visit Provider Internal Medicine Hematology & Oncology
DX: C25.0 Malignant neoplasm of head of pancreas (principal); Z45.2 Encounter for adjustment and management of vascular access device
CPT/HCPCS: 36591; 80053; 85025; 86301

== ENCOUNTER → 2023-09-21 01:28 | Outpatient (CLI) | payer OTHER, SELFPAY ==
--- NOTE | 2023-09-21 15:57 | DI.RAD_ITS ---
Exam(s) XR HIP LT COMPLETE AP PELVIS EXAM: XR HIP LT COMPLETE AP PELVIS CLINICAL HISTORY: hip pain,M25.559. TECHNIQUE: 2D digital imaging was performed. COMPARISON: CR XR HIP LT COMPLETE AP PELVIS from 02/16/2020 FINDINGS: Two views. No evidence of pelvic nor hip fracture. Additional lateral view of the left hip reveals no prominent joint space narrowing nor osteophytes. Bone density normal. No osseous lesions. Sacroiliac joints appear unremarkable. Evidence of sigmoid diverticulosis noted IMPRESSION: No acute osseous findings in the pelvis and hips. DATA REPOSITORY: RADIATION DOSE DELIVERED:
--- NOTE | 2023-09-21 15:57 | DI.RAD_ITS ---
Exam(s) XR LUMBAR SPINE COMPLETE EXAM: XR LUMBAR SPINE COMPLETE CLINICAL HISTORY: LOW BACK PAIN and left radiculopathy,M54.50,H/O PANCREATIC CA. TECHNIQUE: 2D digital imaging was performed. COMPARISON: CR XR DEXA BONE DENSITY W/WO LO from 03/11/[address] CHEST/ABD/PEL W from 08/30/2023 FINDINGS: Five views. There is no evidence of fracture or listhesis nor pars defects. Multilevel chronic disc space narrowing in the upper-mid lumbar spine. More moderate narrowing at L4 -5 and L5-S1 levels. Multilevel anterior osseous lipping noted. Only mild degenerative changes note d in the facet joints. Sacroiliac joints appear unremarkable. Bone density normal. No osseous lesi ons. There is a self expanding-type CBD stent noted. Also multiple densities in the sigmoid most probably consistent with diverticulosis. IMPRESSION: Multilevel chronic degenerative disc disease. No fracture or listhesis. Other findings as above. DATA REPOSITORY: RADIATION DOSE DELIVERED:
== END ==
PROVIDERS: PCP Family Medicine; Visit Provider Family Medicine
DX: M51.37 Other intervertebral disc degeneration, lumbosacral region (principal); M25.552 Pain in left hip
CPT/HCPCS: 72110; 73502

== ENCOUNTER → 2023-11-01 00:39 | Outpatient (CLI) | payer OTHER, SELFPAY ==
--- NOTE | 2023-11-01 07:30 | DI.MRI_ITS ---
Exam(s) MR LUMBAR SPINE WO/W EXAM: MR LUMBAR SPINE WO/W CLINICAL HISTORY: left leg pain,left foot weakness,LUMBAR RADICULOPATHY,M54.16. TECHNIQUE: Multiplanar multisequence MRI of the Lumbar Spine was performed. CONTRAST MATERIAL: IV Contrast: 13 mL of Dotarem contrast administered. COMPARISON: CR XR LUMBAR SPINE COMPLETE from 09/21/2023 FINDINGS: Bones: The last intervertebral disc space is designated the L5/S1 level for the numbering purpose of this examination. The vertebral body heights are well maintained. There is a left convex scoliosis o f the lumbar spine. There are endplate degenerative changes seen at several levels particularly L1-2 and L3-L4. There is disc desiccation at multiple levels of the lumbar spine. Cord: The conus tip ends at the T12 level. It is of normal size and signal intensity. T12-L1: No disc herniations or bulges are present. No central spinal canal or neural foraminal stenos is. L1-2: There is a mild diffuse disc bulge. There is no significant central spinal canal stenosis or l eft neural foraminal stenosis. There is mild right neural foraminal stenosis. L2-3: There is a small left paracentral disc herniation. No significant central spinal canal stenosi s is seen. There is mild right neural foraminal stenosis. No significant left neural foraminal sten osis. L3-4: There is a mild diffuse disc bulge. No significant central spinal canal or right neural forami nal stenosis is seen. There is marked left neural foraminal stenosis. L4-5: There is a mild diffuse disc bulge. There are degenerative changes of the facets present. No significant central spinal canal stenosis or left neural foraminal stenosis. There is mild right anyi ral foraminal stenosis. L5-S1: No disc herniations or bulges are present. There are degenerative changes of the facets bilate rally. There is a mild diffuse disc bulge which is eccentric to the right.No significant central spi nal canal or neural foraminal stenosis is present. Soft tissues: The visualized SI joints and sacrum are well maintained. The paraspinal soft tissues ar e unremarkable. There is a small right simple cysts renal cyst which is unchanged. No follow-up is r ecommended. There is no evidence of suspicious enhancement. IMPRESSION: Multilevel degenerative changes are seen in the lumbar spine resulting in neural foraminal stenosis a s described above. Please refer to the individual levels for complete details. DATA REPOSITORY:
[2023-11-01] MEDS: Normal Saline Flush 10 ML SYR IVP (12:06)
[2023-11-01] MEDS: Gadoterate meglumine 20 ML SYRINGE 13 ML IVP (12:06)
== END ==
PROVIDERS: PCP Family Medicine; Visit Provider Physician Assistant
DX: M54.16 Radiculopathy, lumbar region (principal)
CPT/HCPCS: 72158

== ENCOUNTER 2023-11-01 01:11 | Outpatient (RCR) | payer OTHER, SELFPAY ==
[2023-10-12] MEDS: Normal Saline Flush 10 ML SYR IVP (12:42)
[2023-10-12 12:46] LABS: Abs Immature Grans 0.08 10^3/uL (0.0-0.06); Absolute Basophil Count 0.05 10^3/uL (0.0-0.2); Absolute Eosinophil Count 0.25 10^3/uL (0.0-0.7); Absolute Lymphocyte Count 1.29 10^3/uL (1.2-3.4); Absolute Monocyte Count 0.56 10^3/uL (0.1-0.8); Absolute Neutrophil Count 8.05 10^3/uL (1.2-6.7); Basophils % 0.5 %; Eosinophils % 2.4 %; HCT 30.8 % (36.0-46.0); HGB 10.2 g/dL (11.2-15.7); Immature Grans % 0.8 %; Lymphocytes % 12.5 %; MCH 30.2 pg (27.0-33.0); MCHC 33.1 % (32.0-36.0); MCV 91 fL (80-95); Monocytes % 5.4 %; Neutrophils % 78.4 %; Platelet Count 250 10^3/uL (130-400); RBC 3.38 10^6/uL (3.93-5.22); RDW 14.4 % (11.7-14.6); RDW-SD 48.2 fL; WBC 10.28 10^3/uL (4.4-10.8)
[2023-10-12 13:14] LABS: ALT 51 U/L (14-59); AST 28 U/L (15-37); Albumin 2.7 g/dL (3.4-5.0); Alkaline Phosphatase 132 U/L (46-116); Anion Gap 5.6 mmol/L (3-11); BUN 28 mg/dL (7-18); Bilirubin, Total 0.4 mg/dL (0.2-1.0); CO2 31.4 mmol/L (21.0-32.0); CREATININE 0.8 mg/dL (0.55-1.02); Calcium 8.2 mg/dL (8.5-10.1); Chloride 107 mmol/L (98-107); Glucose 191 mg/dL (74-106); Potassium 3.6 mmol/L (3.5-5.1); Sodium 144 mmol/L (136-145); Total Protein 5.9 g/dL (6.4-8.2)
[2023-10-12 23:23] LABS: CA 19-9 87 U/mL (<35)
[2023-11-01] MEDS: Normal Saline Flush 10 ML SYR IVP (11:38)
== END 2023-11-04 23:59 | disposition home or self-care (01) ==
LOC: INF 01:11
PROVIDERS: Nurse Practitioner Family; PCP Family Medicine; Visit Provider Internal Medicine Hematology & Oncology
DX: C25.0 Malignant neoplasm of head of pancreas (principal); Z45.2 Encounter for adjustment and management of vascular access device
CPT/HCPCS: 36591; 80053; 96523; 85025; 86301

== ENCOUNTER 2023-11-09 02:14 | Outpatient (RCR) | payer OTHER, SELFPAY ==
[2023-11-09] MEDS: Normal Saline Flush 10 ML SYR IVP (10:40)
[2023-11-09 11:02] LABS: ALT 18 U/L (14-59); AST 21 U/L (15-37); Albumin 2.7 g/dL (3.4-5.0); Alkaline Phosphatase 169 U/L (46-116); BUN 18 mg/dL (7-18); Bilirubin, Total 0.39 mg/dL (0.2-1.0); CREATININE 0.8 mg/dL (0.55-1.02); Calcium 8.8 mg/dL (8.5-10.1); Chloride 102 mmol/L (98-107); Glucose 164 mg/dL (74-106); Potassium 3.5 mmol/L (3.5-5.1); Sodium 140 mmol/L (136-145); Total Protein 7.2 g/dL (6.4-8.2)
[2023-11-09 13:32] LABS: TSH (W/Ref FT4) 5.23 uIU/mL (0.36-3.74)
[2023-11-09 13:58] LABS: FREE T4 1.18 ng/dL (0.76-1.46)
== END 2023-12-05 23:59 | disposition home or self-care (01) ==
LOC: INF 02:14
PROVIDERS: PCP Family Medicine; Visit Provider Internal Medicine Hematology & Oncology
DX: C25.0 Malignant neoplasm of head of pancreas (principal); Z45.2 Encounter for adjustment and management of vascular access device
CPT/HCPCS: 36591; 80053; 84439; 84443

== ENCOUNTER 2023-12-31 02:42 | Outpatient (RCR) | payer OTHER, SELFPAY ==
[2023-12-07] MEDS: Normal Saline Flush 10 ML SYR IVP (10:52)
[2023-12-07 11:09] LABS: Abs Immature Grans 0.02 10^3/uL (0.0-0.06); Absolute Basophil Count 0.03 10^3/uL (0.0-0.2); Absolute Eosinophil Count 0.37 10^3/uL (0.0-0.7); Absolute Lymphocyte Count 0.88 10^3/uL (1.2-3.4); Absolute Monocyte Count 0.29 10^3/uL (0.1-0.8); Basophils % 0.5 %; Eosinophils % 6.6 %; HCT 31.5 % (36.0-46.0); HGB 10.5 g/dL (11.2-15.7); Immature Grans % 0.4 %; Lymphocytes % 15.7 %; MCH 29.3 pg (27.0-33.0); MCHC 33.3 % (32.0-36.0); MCV 88 fL (80-95); MPV 9.6 fL (8.0-11.0); Monocytes % 5.2 %; Neutrophils % 71.6 %; Platelet Count 261 10^3/uL (130-400); RBC 3.58 10^6/uL (3.93-5.22); RDW 13.6 % (11.7-14.6); RDW-SD 44.1 fL; WBC 5.59 10^3/uL (4.4-10.8)
[2023-12-07 11:31] LABS: ALT 30 U/L (14-59); AST 22 U/L (15-37); Albumin 2.8 g/dL (3.4-5.0); Alkaline Phosphatase 119 U/L (46-116); Anion Gap 7.1 mmol/L (3-11); BUN 34 mg/dL (7-18); Bilirubin, Total 0.25 mg/dL (0.2-1.0); CO2 24.9 mmol/L (21.0-32.0); CREATININE 1.1 mg/dL (0.55-1.02); Calcium 8.6 mg/dL (8.5-10.1); Chloride 106 mmol/L (98-107); Estimated GFR 51.11 (mL/min/1.73m2); Glucose 298 mg/dL (74-106); Sodium 138 mmol/L (136-145); Total Protein 6.3 g/dL (6.4-8.2)
[2023-12-07 19:27] LABS: CA 19-9 46 U/mL (<35)
[2023-12-31] MEDS: Normal Saline Flush 10 ML SYR IVP (11:55)
[2023-12-31 12:14] LABS: Abs Immature Grans 0.02 10^3/uL (0.0-0.06); Absolute Basophil Count 0.04 10^3/uL (0.0-0.2); Absolute Eosinophil Count 0.37 10^3/uL (0.0-0.7); Absolute Lymphocyte Count 1.05 10^3/uL (1.2-3.4); Absolute Monocyte Count 0.32 10^3/uL (0.1-0.8); Absolute Neutrophil Count 3.95 10^3/uL (1.2-6.7); Basophils % 0.7 %; Eosinophils % 6.4 %; HCT 31.6 % (36.0-46.0); HGB 10.5 g/dL (11.2-15.7); Immature Grans % 0.3 %; Lymphocytes % 18.3 %; MCH 29.4 pg (27.0-33.0); MCHC 33.2 % (32.0-36.0); MCV 89 fL (80-95); MPV 9.6 fL (8.0-11.0); Monocytes % 5.6 %; Neutrophils % 68.7 %; Platelet Count 294 10^3/uL (130-400); RBC 3.57 10^6/uL (3.93-5.22); RDW 14.2 % (11.7-14.6); RDW-SD 45.7 fL; WBC 5.75 10^3/uL (4.4-10.8)
[2023-12-31 12:30] LABS: ALT 39 U/L (14-59); AST 26 U/L (15-37); Albumin 3.1 g/dL (3.4-5.0); Alkaline Phosphatase 115 U/L (46-116); Anion Gap 9.2 mmol/L (3-11); BUN 26 mg/dL (7-18); Bilirubin, Total 0.32 mg/dL (0.2-1.0); CO2 23.8 mmol/L (21.0-32.0); CREATININE 0.7 mg/dL (0.55-1.02); Chloride 110 mmol/L (98-107); Estimated GFR 87.92 (mL/min/1.73m2); Glucose 73 mg/dL (74-106); Potassium 3.9 mmol/L (3.5-5.1); Sodium 143 mmol/L (136-145); Total Protein 6.8 g/dL (6.4-8.2)
[2023-12-31 19:08] LABS: CA 19-9 46 U/mL (<35)
== END 2024-01-05 23:59 | disposition home or self-care (01) ==
LOC: INF 02:42
PROVIDERS: PCP Family Medicine; Visit Provider Internal Medicine Hematology & Oncology
DX: C25.0 Malignant neoplasm of head of pancreas (principal); Z45.2 Encounter for adjustment and management of vascular access device
CPT/HCPCS: 36415; 36591; 80053; 96523; 83036; 85025; 86301

== ENCOUNTER 2024-01-30 02:15 | Outpatient (RCR) | payer OTHER, SELFPAY ==
[2024-01-30] MEDS: Normal Saline Flush 10 ML SYR IVP (09:44)
[2024-01-30 10:06] LABS: Abs Immature Grans 0.01 10^3/uL (0.0-0.06); Absolute Basophil Count 0.04 10^3/uL (0.0-0.2); Absolute Eosinophil Count 0.29 10^3/uL (0.0-0.7); Absolute Lymphocyte Count 1.21 10^3/uL (1.2-3.4); Absolute Monocyte Count 0.43 10^3/uL (0.1-0.8); Absolute Neutrophil Count 3.31 10^3/uL (1.2-6.7); Basophils % 0.8 %; Eosinophils % 5.5 %; HCT 30.8 % (36.0-46.0); HGB 10.1 g/dL (11.2-15.7); Immature Grans % 0.2 %; Lymphocytes % 22.9 %; MCH 29.4 pg (27.0-33.0); MCHC 32.8 % (32.0-36.0); MCV 90 fL (80-95); MPV 9.8 fL (8.0-11.0); Monocytes % 8.1 %; Neutrophils % 62.5 %; Platelet Count 267 10^3/uL (130-400); RBC 3.43 10^6/uL (3.93-5.22); RDW 13.3 % (11.7-14.6); RDW-SD 44.4 fL; WBC 5.29 10^3/uL (4.4-10.8)
[2024-01-30 10:21] LABS: ALT 33 U/L (14-59); AST 21 U/L (15-37); Alkaline Phosphatase 104 U/L (46-116); Anion Gap 7.7 mmol/L (3-11); BUN 32 mg/dL (7-18); Bilirubin, Total 0.27 mg/dL (0.2-1.0); CO2 25.3 mmol/L (21.0-32.0); CREATININE 0.8 mg/dL (0.55-1.02); Calcium 8.7 mg/dL (8.5-10.1); Chloride 106 mmol/L (98-107); Glucose 126 mg/dL (74-106); Potassium 3.9 mmol/L (3.5-5.1); Sodium 139 mmol/L (136-145); Total Protein 6.7 g/dL (6.4-8.2)
[2024-01-30 19:42] LABS: CA 19-9 73 U/mL (<35)
== END 2024-02-04 23:59 | disposition home or self-care (01) ==
LOC: INF 02:15
PROVIDERS: Nurse Practitioner Family; PCP Family Medicine; Visit Provider Internal Medicine Hematology & Oncology
DX: C25.0 Malignant neoplasm of head of pancreas (principal)
CPT/HCPCS: 36591; 80053; 85025; 86301

== ENCOUNTER 2024-02-14 01:58 | Outpatient (RCR) | payer OTHER, SELFPAY ==
[2024-02-14] MEDS: Normal Saline Flush 10 ML SYR IVP (11:05)
== END 2024-03-06 23:59 | disposition home or self-care (01) ==
LOC: INF 01:58
PROVIDERS: PCP Family Medicine; Visit Provider Internal Medicine Hematology & Oncology
DX: Z45.2 Encounter for adjustment and management of vascular access device
CPT/HCPCS: 96523

== ENCOUNTER 2024-02-27 16:05 | Outpatient (CLI) | payer OTHER, SELFPAY ==
[2024-02-27 16:22] LABS: Abs Immature Grans 0.05 10^3/uL (0.0-0.06); Absolute Basophil Count 0.04 10^3/uL (0.0-0.2); Absolute Eosinophil Count 0.27 10^3/uL (0.0-0.7); Absolute Lymphocyte Count 1.55 10^3/uL (1.2-3.4); Absolute Monocyte Count 0.52 10^3/uL (0.1-0.8); Absolute Neutrophil Count 4.08 10^3/uL (1.2-6.7); Basophils % 0.6 %; Eosinophils % 4.1 %; HCT 35.8 % (36.0-46.0); HGB 11.8 g/dL (11.2-15.7); Immature Grans % 0.8 %; Lymphocytes % 23.8 %; MCH 29.4 pg (27.0-33.0); MCV 89 fL (80-95); MPV 9.5 fL (8.0-11.0); Neutrophils % 62.7 %; Platelet Count 318 10^3/uL (130-400); RBC 4.01 10^6/uL (3.93-5.22); RDW 12.5 % (11.7-14.6); RDW-SD 41.1 fL; WBC 6.51 10^3/uL (4.4-10.8)
[2024-02-27 16:55] LABS: ALT 37 U/L (14-59); AST 27 U/L (15-37); Albumin 3.4 g/dL (3.4-5.0); Alkaline Phosphatase 172 U/L (46-116); Anion Gap 8.9 mmol/L (3-11); BUN 37 mg/dL (7-18); Bilirubin, Total 0.26 mg/dL (0.2-1.0); CO2 25.1 mmol/L (21.0-32.0); CREATININE 0.9 mg/dL (0.55-1.02); Calcium 9.5 mg/dL (8.5-10.1); Chloride 110 mmol/L (98-107); Estimated GFR 64.63 (mL/min/1.73m2); Glucose 92 mg/dL (74-106); Potassium 4.3 mmol/L (3.5-5.1); Sodium 144 mmol/L (136-145); Total Protein 7.8 g/dL (6.4-8.2)
[2024-02-29 10:16] LABS: CA 19-9 82 U/mL (<35)
== END 2024-02-27 16:06 | disposition home or self-care (01) ==
LOC: LBO 16:07
PROVIDERS: PCP Family Medicine; Visit Provider Nurse Practitioner Family
DX: C25.0 Malignant neoplasm of head of pancreas (principal)
CPT/HCPCS: 36415; 80053; 85025; 86301

== ENCOUNTER 2024-04-01 01:54 | Outpatient (RCR) | payer OTHER, SELFPAY ==
[2024-04-01 09:59] LABS: Abs Immature Grans 0.01 10^3/uL (0.0-0.06); Absolute Basophil Count 0.04 10^3/uL (0.0-0.2); Absolute Eosinophil Count 0.33 10^3/uL (0.0-0.7); Absolute Lymphocyte Count 1.25 10^3/uL (1.2-3.4); Absolute Neutrophil Count 2.96 10^3/uL (1.2-6.7); Basophils % 0.8 %; Eosinophils % 6.7 %; HGB 11.4 g/dL (11.2-15.7); Immature Grans % 0.2 %; Lymphocytes % 25.6 %; MCH 29.3 pg (27.0-33.0); MCHC 34.5 % (32.0-36.0); MCV 85 fL (80-95); MPV 9.4 fL (8.0-11.0); Monocytes % 6.1 %; Neutrophils % 60.6 %; Platelet Count 298 10^3/uL (130-400); RBC 3.89 10^6/uL (3.93-5.22); RDW 12.2 % (11.7-14.6); RDW-SD 37.6 fL; WBC 4.89 10^3/uL (4.4-10.8)
[2024-04-01] MEDS: Normal Saline Flush 10 ML SYR IVP (10:00)
[2024-04-01 10:19] LABS: ALT 37 U/L (14-59); AST 21 U/L (15-37); Albumin 3.1 g/dL (3.4-5.0); Alkaline Phosphatase 113 U/L (46-116); Anion Gap 9.9 mmol/L (3-11); BUN 26 mg/dL (7-18); Bilirubin, Total 0.27 mg/dL (0.2-1.0); CO2 27.1 mmol/L (21.0-32.0); CREATININE 0.8 mg/dL (0.55-1.02); Calcium 8.6 mg/dL (8.5-10.1); Chloride 110 mmol/L (98-107); Estimated GFR 74.44 (mL/min/1.73m2); Glucose 186 mg/dL (74-106); Potassium 3.5 mmol/L (3.5-5.1); Sodium 147 mmol/L (136-145); Total Protein 6.9 g/dL (6.4-8.2)
[2024-04-02 12:18] LABS: CA 19-9 102 U/mL (<35)
== END 2024-04-05 23:59 | disposition home or self-care (01) ==
LOC: INF 01:54
PROVIDERS: Nurse Practitioner Family; PCP Family Medicine; Visit Provider Internal Medicine Hematology & Oncology
DX: C25.0 Malignant neoplasm of head of pancreas (principal); Z45.2 Encounter for adjustment and management of vascular access device
CPT/HCPCS: 36591; 80053; 85025; 86301

== ENCOUNTER 2024-04-21 01:41 | Outpatient (RCR) | payer OTHER, SELFPAY ==
[2024-04-21] MEDS: Normal Saline Flush 10 ML SYR IVP ×2 (12:26→15:22)
[2024-04-21 12:42] LABS: Abs Immature Grans 0.06 10^3/uL (0.0-0.06); Absolute Basophil Count 0.04 10^3/uL (0.0-0.2); Absolute Eosinophil Count 0.13 10^3/uL (0.0-0.7); Absolute Lymphocyte Count 1.41 10^3/uL (1.2-3.4); Absolute Monocyte Count 0.82 10^3/uL (0.1-0.8); Absolute Neutrophil Count 9.29 10^3/uL (1.2-6.7); Basophils % 0.3 %; Eosinophils % 1.1 %; HCT 34.4 % (36.0-46.0); HGB 11.6 g/dL (11.2-15.7); Immature Grans % 0.5 %; MCHC 33.7 % (32.0-36.0); MCV 86 fL (80-95); Neutrophils % 79.1 %; Platelet Count 287 10^3/uL (130-400); RDW 12.2 % (11.7-14.6); RDW-SD 38.5 fL; WBC 11.74 10^3/uL (4.4-10.8)
[2024-04-21 13:01] LABS: ALT 45 U/L (14-59); AST 37 U/L (15-37); Alkaline Phosphatase 232 U/L (46-116); Anion Gap 8.1 mmol/L (3-11); BUN 21 mg/dL (7-18); Bilirubin, Total 0.72 mg/dL (0.2-1.0); CO2 27.9 mmol/L (21.0-32.0); CREATININE 0.8 mg/dL (0.55-1.02); Calcium 9.2 mg/dL (8.5-10.1); Chloride 106 mmol/L (98-107); Estimated GFR 74.44 (mL/min/1.73m2); Glucose 154 mg/dL (74-106); Potassium 4.2 mmol/L (3.5-5.1); Sodium 142 mmol/L (136-145); Total Protein 7.6 g/dL (6.4-8.2)
[2024-04-21 23:56] LABS: CA 19-9 430 U/mL (<35)
== END 2024-05-06 23:59 | disposition home or self-care (01) ==
LOC: INF 01:41
PROVIDERS: Nurse Practitioner Family; PCP Family Medicine; Visit Provider Internal Medicine Hematology & Oncology
DX: C25.0 Malignant neoplasm of head of pancreas (principal); Z45.2 Encounter for adjustment and management of vascular access device
CPT/HCPCS: 36591; 80053; 85025; 86301

== ENCOUNTER 2024-06-26 11:14 | Outpatient (RCR) | payer OTHER, SELFPAY ==
[2024-06-26] MEDS: Normal Saline Flush 10 ML SYR IVP (11:19)
[2024-06-26 11:20] LABS: Abs Immature Grans 0.01 10^3/uL (0.0-0.06); Absolute Basophil Count 0.03 10^3/uL (0.0-0.2); Absolute Eosinophil Count 0.21 10^3/uL (0.0-0.7); Absolute Lymphocyte Count 0.95 10^3/uL (1.2-3.4); Absolute Monocyte Count 0.37 10^3/uL (0.1-0.8); Absolute Neutrophil Count 4.41 10^3/uL (1.2-6.7); Basophils % 0.5 %; Eosinophils % 3.5 %; HCT 33.4 % (36.0-46.0); HGB 10.8 g/dL (11.2-15.7); Immature Grans % 0.2 %; Lymphocytes % 15.9 %; MCH 26.7 pg (27.0-33.0); MCHC 32.3 % (32.0-36.0); MCV 83 fL (80-95); MPV 10.5 fL (8.0-11.0); Monocytes % 6.2 %; Neutrophils % 73.7 %; Platelet Count 270 10^3/uL (130-400); RBC 4.04 10^6/uL (3.93-5.22); RDW 13.8 % (11.7-14.6); RDW-SD 41.6 fL; WBC 5.98 10^3/uL (4.4-10.8)
[2024-06-26 11:36] LABS: ALT 55 U/L (14-59); AST 39 U/L (15-37); Albumin 2.8 g/dL (3.4-5.0); Alkaline Phosphatase 412 U/L (46-116); Anion Gap 6.1 mmol/L (3-11); BUN 21 mg/dL (7-18); Bilirubin, Total 0.37 mg/dL (0.2-1.0); CO2 27.9 mmol/L (21.0-32.0); CREATININE 0.9 mg/dL (0.55-1.02); Calcium 9.1 mg/dL (8.5-10.1); Chloride 105 mmol/L (98-107); Estimated GFR 64.63 (mL/min/1.73m2); Glucose 392 mg/dL (74-106); Lipase 8 U/L (<78); Sodium 139 mmol/L (136-145); Total Protein 7.8 g/dL (6.4-8.2)
== END 2024-07-04 23:59 | disposition home or self-care (01) ==
LOC: INF 11:14
PROVIDERS: PCP Family Medicine; Visit Provider Internal Medicine Hematology & Oncology
DX: C25.0 Malignant neoplasm of head of pancreas (principal)
CPT/HCPCS: 36415; 80053; 83690; 96523; 85025

== ENCOUNTER 2024-08-28 10:00 | Outpatient (RCR) | payer OTHER, SELFPAY ==
[2024-08-15] MEDS: Normal Saline Flush 10 ML SYR IVP (10:46)
[2024-08-15 10:50] LABS: Abs Immature Grans 0.01 10^3/uL (0.0-0.06); Absolute Basophil Count 0.03 10^3/uL (0.0-0.2); Absolute Eosinophil Count 0.23 10^3/uL (0.0-0.7); Absolute Lymphocyte Count 1.31 10^3/uL (1.2-3.4); Absolute Monocyte Count 0.33 10^3/uL (0.1-0.8); Absolute Neutrophil Count 3.57 10^3/uL (1.2-6.7); Basophils % 0.5 %; Eosinophils % 4.2 %; HCT 37.5 % (36.0-46.0); HGB 12.3 g/dL (11.2-15.7); Immature Grans % 0.2 %; Lymphocytes % 23.9 %; MCH 26.9 pg (27.0-33.0); MCHC 32.8 % (32.0-36.0); MCV 82 fL (80-95); MPV 11.1 fL (8.0-11.0); Neutrophils % 65.2 %; Platelet Count 259 10^3/uL (130-400); RBC 4.58 10^6/uL (3.93-5.22); RDW 15.3 % (11.7-14.6); RDW-SD 46.1 fL; WBC 5.48 10^3/uL (4.4-10.8)
[2024-08-15 11:14] LABS: ALT 237 U/L (14-59); AST 221 U/L (15-37); Alkaline Phosphatase 1240 U/L (46-116); Anion Gap 8.8 mmol/L (3-11); BUN 23 mg/dL (7-18); Bilirubin, Total 0.4 mg/dL (0.2-1.0); CO2 24.2 mmol/L (21.0-32.0); CREATININE 0.7 mg/dL (0.55-1.02); Calcium 9.2 mg/dL (8.5-10.1); Chloride 107 mmol/L (98-107); Estimated GFR 87.37 (mL/min/1.73m2); Glucose 139 mg/dL (74-106); Potassium 3.9 mmol/L (3.5-5.1); Sodium 140 mmol/L (136-145); Total Protein 7.9 g/dL (6.4-8.2)
[2024-08-15 21:02] LABS: CA 19-9 1515 U/mL (<35)
== END 2024-09-03 23:59 | disposition home or self-care (01) ==
LOC: INF 10:00
PROVIDERS: PCP Family Medicine; Visit Provider Internal Medicine Hematology & Oncology
DX: C25.0 Malignant neoplasm of head of pancreas (principal)
CPT/HCPCS: 36415; 80053; 96523; 85025; 86301

== ENCOUNTER 2024-08-30 14:26 | Observation (INO) | payer OTHER, SELFPAY ==
[2024-08-30] VITALS (39 sets, daily range): BP systolic 99–177; BP diastolic 49–124; PULSE 55–78; RESP 12–22; TEMP 36.1–37; O2SAT 93–99
--- NOTE | 2024-08-30 14:45 | DI.CT_ITS ---
Exam(s) CT ABDOMEN PELVIS W EXAM: CT ABDOMEN PELVIS W CLINICAL HISTORY: jaundice, vomiting, history of pancreatic cancer TECHNIQUE: Imaging Protocol: Axial computed tomography images with coronal and sagittal reformatted images were created and reviewed. CONTRAST MATERIAL: Intravenous: Omnipaque 350 Contrast volume:75 mL Oral: No COMPARISON: CT CT CHEST/ABD/PEL W from 04/21/[address] CHEST/ABD/PEL W from 08/15/2024 FINDINGS: ABDOMEN: Lung Bases: Calcified granuloma are present. Liver: Normal density. No measurable mass. Portal, Superior Mesenteric, and Splenic Veins: The portal vein is patent. There is marked narrowing of the compliance of the portal and superior mesenteric veins. The splenic vein is not well visuali zed on this examination. This may represent obstruction or compression. Gallbladder and Biliary Tract: There is again seen a biliary stent in place. There is persistent mil d to moderate dilatation of the intra and extrahepatic bile ducts. Pneumobilia is present in the lef t lobe of the liver. Pancreas: The pancreatic head is heterogeneous likely reflecting the patient's known pancreatic carci noma. Portions of the splenic vein are not visualized suggesting obstruction or thrombosis. Accesso ry vessels are seen around the stomach and in the splenic hilum. 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 Pancreatic calcifications are again seen distributed throughout the pancreas. Spleen: The spleen is mildly enlarged. There are areas of decreased attenuation seen in the spleen w hich may reflect infarcts. This are unchanged. Adrenals: No masses seen. Kidneys: Normal size, contour and axis. Bilateral nephrolithiasis. No evidence of obstructive uropat hy. There is a simple cyst in the left kidney. No follow-up is recommended. Abdominal Aorta: Abdominal portion non-dilated. Atherosclerotic calcification is present. Bowel: There is diverticulosis of the colon without evidence of acute diverticulitis. There is a lar ge amount of stool throughout the colon suggesting constipation. There is no evidence of bowel obstr uction. There is mild thickening of the wall of the stomach. There is an appendicoliths present. T here is no bowel wall thickening or Adela appendiceal inflammation to suggest acute appendicitis. Peritoneal Cavity: No ascites, collection or mesenteric inflammatory response. No free air. Lymph Nodes: Within normal limits. Bones: Within normal limits for the patient's age. Soft Tissues: Unremarkable. PELVIS: Bladder: Symmetric distention, no gross wall thickening. Reproductive Organs: Status post hysterectomy. Lymph Nodes: Within normal limits. Bones: Within normal limits for the patient's age. IMPRESSION: 1. Unchanged appearance of the pancreatic head with presence of a biliary stent. 2. Worsening intrahepatic biliary ductal dilatation since 08/15/2024. Biliary stent patency should be evaluated. 3. 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 There is splenomegaly and areas of decreased attenuation in the s pleen which may reflect infarcts. 4. Colonic diverticulosis without evidence of acute diverticulitis. 5. Wall thickening involving the stomach which may represent edema. 6. Large amount of stool throughout the colon suggesting constipation. 7. Findings were discussed with Dr. Lafleur at 5:10 p.m. on 08/30/2024. RADIATION DOSE DELIVERED: 318.71mGy.cm Total DLP DATA REPOSITORY: All CT scans at this facility are submitted to the National Radiology Data Registry (NRDR) Dose Index Registry (DIR) with the [employer] (A[employer]). RADIATION OPTIMIZATION: All CT scans at this facility use at least one of these dose optimization te chniques: automated exposure control; mA and/or kV adjustment per patient size (includes targeted exa ms where dose is matched to clinical indication); or iterative reconstruction.
--- NOTE | 2024-08-30 14:52 | W.ED.GENAD ---
Discharge Plan Disposition Patient Disposition: Admit to [facility] Condition: Stable Discharge Details Chief Complaint: GenMedical Clinical Impression: Blockage of a bile duct, Hyperbilirubinemia Primary Care Provider: Sarah Weldon ED Provider: Tesfaye Lafleur Home Meds and New Rx's Prescriptions: No Action (DME) FreeStyle Test Strip See Rx Instructions .Route Qty: 300 4RF Rx Instructions: 3 times daily E11.9 haloperidol 0.5 mg tablet 0.5 mg PO BID PRN (Reason: nausea and vomiting) Qty: 30 0RF fluticasone propionate 50 mcg/actuation spray,suspension 2 spray intranasal DAILY Qty: 16 2RF Rx Instructions: administer into each nostril prochlorperazine maleate 10 mg tablet PO Patient Comments: TAKE ONE TABLET BY MOUTH EVERY 6 HOURS NEEDED ondansetron HCl 8 mg tablet 8 mg PO Q8H Patient Comments: TAKE ONE TABLET BY MOUTH EVERY 8 HOURS NEEDED FOR NAUSEA estradiol 0.01 % (0.1 mg/gram) cream 1 g vaginal DAILY Qty: 42.5 5RF Rx Instructions: do daily until seen by Dr Smith again methenamine hippurate 1 gram tablet 1 g PO BID Qty: 180 3RF clonazepam 0.5 mg tablet 0.5 mg PO BID Qty: 180 3RF insulin glargine [Lantus Solostar U-100 Insulin] 100 unit/mL (3 mL) insulin pen See Rx Instructions subcut BID Qty: 45 7RF Rx Instructions: 22 U am and 15U pm subcutaneously twice a day; polyethylene glycol 3350 [Miralax] 17 gram/dose powder 17 g PO BID PRN (Reason: laxative effect) Qty: 238 4RF pregabalin 25 mg capsule 25 mg PO BID Qty: 180 3RF (DME) pen needle, diabetic [BD Ultra-Fine Mini Pen Needle] 31 gauge x 3/16 needle See Rx Instructions .ROUTE .MEDSUPPLY Qty: 90 4RF Rx Instructions: Daily E11.9 (DME) blood-glucose meter [FreeStyle Lite Meter] Kit See Rx Instructions .Route Qty: 1 0RF Rx Instructions: 3 times daily testing E11.9 (DME) lancets [FreeStyle Lancets] 28 gauge misc See Rx Instructions .ROUTE .MEDSUPPLY Qty: 300 5RF Rx Instructions: 3 times daily testing E11.9 Creon 24,000-76,000 -120,000 unit capsule,delayed release(DR/EC) 1 cap PO TID Qty: 270 4RF Rx Instructions: administer with meals and/or snacks Ordered by Opal Ontiveros windows desktop support at [facility] [place] per Tina. 05/29/23. -hb triamcinolone acetonide 0.1 % cream 1 applic TP DAILY PRN (Reason: irritation) Qty: 80 0RF mirabegron [Myrbetriq] 50 mg tablet extended release 24 hr 50 mg PO DAILY Qty: 90 4RF quetiapine 50 mg tablet 50 mg PO BID Qty: 180 5RF (DME) pen needle, diabetic [BD Ultra-Fine Mini Pen Needle] 31 gauge x 3/16 needle See Rx Instructions .ROUTE .MEDSUPPLY Qty: 200 4RF Rx Instructions: use one BID E11.9 celecoxib 100 mg capsule 100 mg PO BID Qty: 180 2RF Gemtesa 75 mg tablet 75 mg PO DAILY Patient Comments: HS HPI General Date/Time Provider Initiated Documentation: 08/30/24 14:27. HPI Narrative: This is a very pleasant 79-year-old female with a past medical history of type 2 diabetes on insulin, overactive bladder, high cholesterol, hysterectomy, and pancreatic cancer (with electric pancreatic stent?)That was diagnosed a year and a half ago, for which she received both chemotherapy and radiation, last treatment was about a year ago, who states she had a negative PET scan 1 month ago, who presents today for jaundice and itching. Patient states that she has been itching for the last 5 days, she had an episode of vomiting today, and one of her friends noticed that she was a bit more yellow than normal. She came to the ER for further assessment. She denies any abdominal pain, numbness or tingling, new weakness, headache, diarrhea, hematochezia or melena. No other complaints at this time. No other modifying factors. Related Data Home Medications ?Medication ?Instructions ?Recorded ?Confirmed pen needle, diabetic 31 gauge x #90 ea 10/31/22 08/30/2416 (BD Ultra-Fine Mini Pen Needle) vibegron 75 mg tablet (Gemtesa) 75 mg PO DAILY 03/28/23 08/30/24 blood-glucose meter (FreeStyle #1 ea 04/03/23 08/30/24 Lite Meter kit) polyethylene glycol 3350 17 17 g PO BID PRN laxative effect 04/23/23 08/30/24 gram/dose oral powder (Miralax) #238 grams lancets 28 gauge (FreeStyle #300 ea 05/08/23 08/30/24 Lancets) blood sugar diagnostic (FreeStyle #300 ea 05/29/23 08/30/24 Test strips) Creon 24,000-76,000-120,000 unit 1 cap PO TID #270 caps 05/30/23 08/30/24 capsule,delayed release (qrhzqx-bdfghpno-rymoxcd) estradiol 0.01% (0.1 mg/gram) 1 g vaginal DAILY #42.5 grams 06/21/23 08/30/24 vaginal cream triamcinolone acetonide 0.1 % 1 applic topical DAILY PRN 06/28/23 08/30/24 topical cream irritation #80 grams fluticasone propionate 50 2 spray intranasal DAILY #16 grams 07/16/23 08/30/24 mcg/actuation nasal spray,suspension haloperidol 0.5 mg tablet 0.5 mg PO BID PRN nausea and 07/16/23 08/30/24 vomiting #30 tabs ondansetron HCl 8 mg tablet 8 mg PO Q8H 07/16/23 08/30/24 prochlorperazine maleate 10 mg mg PO 07/16/23 08/14/24 tablet mirabegron 50 mg tablet,extended 50 mg PO DAILY #90 tabs 11/01/23 08/30/24 release 24 hr (Myrbetriq) pregabalin 25 mg capsule 25 mg PO BID #180 caps 12/12/23 08/30/24 clonazepam 0.5 mg tablet 0.5 mg PO BID #180 tab-caps 03/10/24 08/30/24 methenamine hippurate 1 gram tablet 1 g PO BID #180 tab-caps 03/21/24 08/30/24 quetiapine 50 mg tablet 50 mg PO BID #180 tabs 06/13/24 08/30/24 pen needle, diabetic 31 gauge x #200 ea 06/18/24 08/30/2407/20 (BD Ultra-Fine Mini Pen Needle) insulin glargine 100 unit/mL (3 See Rx Instructions subcut BID #45 08/14/24 08/30/24 mL) subcutaneous pen (Lantus mL Solostar U-100 Insulin) celecoxib 100 mg capsule 100 mg PO BID #180 caps 08/28/24 08/30/24 Previous Rx's ?Medication ?Instructions ?Recorded pen needle, diabetic 31 gauge x #90 ea 10/31/2207/20 (BD Ultra-Fine Mini Pen Needle) blood-glucose meter (FreeStyle #1 ea 04/03/23 Lite Meter kit) polyethylene glycol 3350 17 17 g PO BID PRN laxative effect 04/23/23 gram/dose oral powder (Miralax) #238 grams lancets 28 gauge (FreeStyle #300 ea 05/08/23 Lancets) blood sugar diagnostic (FreeStyle #300 ea 05/29/23 Test strips) Creon 24,000-76,000-120,000 unit 1 cap PO TID #270 caps 05/30/23 capsule,delayed release (jelkrm-etfalioc-jrejnvm) estradiol 0.01% (0.1 mg/gram) 1 g vaginal DAILY #42.5 grams 06/21/23 vaginal cream triamcinolone acetonide 0.1 % 1 applic topical DAILY PRN 06/28/23 topical cream irritation #80 grams fluticasone propionate 50 2 spray intranasal DAILY #16 grams 07/16/23 mcg/actuation nasal spray,suspension haloperidol 0.5 mg tablet 0.5 mg PO BID PRN nausea and 07/16/23 vomiting #30 tabs mirabegron 50 mg tablet,extended 50 mg PO DAILY #90 tabs 11/01/23 release 24 hr (Myrbetriq) pregabalin 25 mg capsule 25 mg PO BID #180 caps 12/12/23 clonazepam 0.5 mg tablet 0.5 mg PO BID #180 tab-caps 03/10/24 methenamine hippurate 1 gram tablet 1 g PO BID #180 tab-caps 03/21/24 quetiapine 50 mg tablet 50 mg PO BID #180 tabs 06/13/24 pen needle, diabetic 31 gauge x #200 ea 06/18/2407/20 (BD Ultra-Fine Mini Pen Needle) insulin glargine 100 unit/mL (3 See Rx Instructions subcut BID #45 08/14/24 mL) subcutaneous pen (Lantus mL Solostar U-100 Insulin) celecoxib 100 mg capsule 100 mg PO BID #180 caps 08/28/24 Allergies Allergy/AdvReac Type Severity Reaction Status Date / Time ibuprofen AdvReac Mild Stomach Verified 08/30/24 14:32 cramps General Stated Complaint: GenMedical ANDER: 3 Exam Narrative Exam Narrative: 1.Const: Well-nourished, Well-developed, appearing stated age 2.Eyes: PERRL, no conjunctival injection, and symmetrical lids. Scleral icterus present 3.ENT: Atraumatic external nose and ears. Moist MM. Neck: Symmetric, trachea midline, No thyromegaly. 4.CVS: +S1/S2, Peripheral pulses 2+ and equal in all extremities. Brisk capillary refill in all extremities. 5.RESP: Unlabored respiratory effort. Clear to auscultation bilaterally. No wheezes rales or rhonchi 6.GI: Soft, Nontender/Nondistended, No hepatosplenomegaly. No guarding or rebound. No pain or mass in the epigastric region. No guarding or rebound. 7.MSK: Normocephalic/Atraumatic, Extremities w/o deformity or ttp No cyanosis or clubbing, Normal movement of all extremities. No asterixis 8.Skin: Warm, Dry. No rashes or lesions. Notably jaundiced 9.Neuro: edge burnisher II-XII grossly intact. Sensation grossly intact, no focal neurologic deficits. 10.Psych: (AAO) x3. Appropriate mood and affect Course Vital Signs Vital signs: Vital Signs Temperature 37.0 C 08/30/24 14:28 Pulse 73 08/30/24 14:28 Respiratory Rate 16 08/30/24 14:28 Blood Pressure 99/58 L 08/30/24 14:28 Pulse Oximetry 97 08/30/24 14:28 Temperature 37.0 C 08/30/24 14:28 Pulse 73 08/30/24 14:28 Respiratory Rate 16 08/30/24 14:28 Blood Pressure 99/58 L 08/30/24 14:28 Pulse Oximetry 97 08/30/24 14:28 Oxygen Delivery Method Room Air 08/30/24 14:28 Oxygen Flow Rate 0 08/30/24 14:28 Pain Level 0 08/30/24 14:28 Medical Decision Making This is a very pleasant 79-year-old female with a past medical history of type 2 diabetes on insulin, overactive bladder, high cholesterol, hysterectomy, and pancreatic cancer (with electric pancreatic stent?)That was diagnosed a year and a half ago, for which she received both chemotherapy and radiation, last treatment was about a year ago, who states she had a negative PET scan 1 month ago, who presents today for jaundice and itching. Patient states that she has been itching for the last 5 days, she had an episode of vomiting today, and one of her friends noticed that she was a bit more yellow than normal. She came to the ER for further assessment. She denies any abdominal pain, numbness or tingling, new weakness, headache, diarrhea, hematochezia or melena. No other complaints at this time. No other modifying factors. Exam demonstrates a well-appearing female who is notably jaundiced, no asterixis. No abdominal mass or pain or tenderness. Differential includes gallstone, pancreatic mass, hepatitis. Will get CT imaging to evaluate for obstructive pathology, will gently rehydrate, will check labs, ammonia level, monitor closely and reassess. She has no fever or tachycardia cyst to suggest ascending cholangitis. She denies excessive alcohol use. Review of imaging from 15 days ago shows a CT chest abdomen pelvis with no evidence of mass or acute pathology in the gallbladder or pancreas at that time. Stents appear to be in place. 6:49 PM Laboratory workup has returned, bilirubin is 4 which is notably elevated compared to baseline, conjugated bilirubin is 3.4. Lipase normal. Ammonia normal, alk phos notably elevated at 1593, AST and ALT are 135 and 233 respectively which is a slight improvement from before. Creatinine stable. Urinalysis shows no infection. CT scan shows evidence of worsening intrahepatic biliary ductal dilatation, concern for biliary stent clogging, there is also concern for splenic vein obstruction with decreased attenuation in the spleen concerning for infarcts. Despite this the patient remains notably clinically stable, no tachycardia, hypotension, or pain. She is tolerating p.o. I did contact gastroenterology at [facility] and spoke with Dr. Keene. She recommends admission (and specifically recommends against discharge with outpatient follow-up) for continued observation and a down and back procedure on Sunday as they are not able to do any procedures over the weekend. She recommends that [facility] H contacts [facility] at 8:30 AM on Sunday morning to facilitate down and back procedure. She recommends that they contact [facility] immediately if the patient does develop fever or pain. Gastroenterology does not recommend starting any antibiotics at this time as the patient has no white count or fever. No evidence to suggest ascending cholangitis. Discussed the case with the hospitalist, they agree with the assessment and plan. I have extensively reviewed the treatment plan with the patient. I have addressed all patient concerns at this time. I have also discussed the plan with the admitting physician and they agree with the current assessment and plan and have agreed to assume responsibility for the patient. All parties demonstrate verbal understanding and agreement with our assessment and plan at this time. The documentation in this chart was dictated using [employer] dictation software. Please excuse any dictation errors. FINDINGS: ABDOMEN: Lung Bases: Calcified granuloma are present. Liver: Normal density. No measurable mass. Portal, Superior Mesenteric, and Splenic Veins: The portal vein is patent. There is marked narrowing of the compliance of the portal and superior mesenteric veins. The splenic vein is not well visualized on this examination. This may represent obstruction or compression. Gallbladder and Biliary Tract: There is again seen a biliary stent in place. There is persistent mild to moderate dilatation of the intra and extrahepatic bile ducts. Pneumobilia is present in the left lobe of the liver. Pancreas: The pancreatic head is heterogeneous likely reflecting the patient's known pancreatic carcinoma. Portions of the splenic vein are not visualized suggesting obstruction or thrombosis. Accessory vessels are seen around the stomach and in the splenic hilum. 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 Pancreatic calcifications are again seen distributed throughout the pancreas. Spleen: The spleen is mildly enlarged. There are areas of decreased attenuation seen in the spleen which may reflect infarcts. This are unchanged. Adrenals: No masses seen. Kidneys: Normal size, contour and axis. Bilateral nephrolithiasis. No evidence of obstructive uropathy. There is a simple cyst in the left kidney. No follow-up is recommended. Abdominal Aorta: Abdominal portion non-dilated. Atherosclerotic calcification is present. Bowel: There is diverticulosis of the colon without evidence of acute diverticulitis. There is a large amount of stool throughout the colon suggesting constipation. There is no evidence of bowel obstruction. There is mild thickening of the wall of the stomach. There is an appendicoliths present. There is no bowel wall thickening or Adela appendiceal inflammation to suggest acute appendicitis. Peritoneal Cavity: No ascites, collection or mesenteric inflammatory response. No free air. Lymph Nodes: Within normal limits. Bones: Within normal limits for the patient's age. Soft Tissues: Unremarkable. PELVIS: Bladder: Symmetric distention, no gross wall thickening. Reproductive Organs: Status post hysterectomy. Lymph Nodes: Within normal limits. Bones: Within normal limits for the patient's age. IMPRESSION: 1. Unchanged appearance of the pancreatic head with presence of a biliary stent. 2. Worsening intrahepatic biliary ductal dilatation since 08/15/2024. Biliary stent patency should be evaluated. 3. Findings suggestive of obstruction of the splenic vein with interval development of accessory vessels around the spleen and stomach. There is splenomegaly and areas of decreased attenuation in the spleen which may reflect infarcts. 4. Colonic diverticulosis without evidence of acute diverticulitis. 5. Wall thickening involving the stomach which may represent edema. 6. Large amount of stool throughout the colon suggesting constipation. 7. Findings were discussed with Dr. Lafleur at 5:10 p.m. on 08/30/2024. Quality:SDOH Health Related Social Needs: No Data to Display PFSH All Active Problems (Updated 05/27/24 @ 07:55 by Sarah Weldon MD, [place]) Impaired functional mobility, balance, gait, and endurance (Acute) Peripheral neuropathy (Acute) Diabetic amyotrophy (Acute) Peroneal neuropathy (Acute) Heart murmur (Acute) Balance problem (Acute) Foot drop, left (Acute) Advanced care planning/counseling discussion (Acute) Low back pain potentially associated with radiculopathy (Acute) Hip pain (Acute) Diabetes mellitus with neuropathy (Acute) Nail dystrophy (Acute) Memory changes (Acute) Mass, brain (Acute) MRI 04/17/23 3mm small enhancing focus ? mets Adenocarcinoma of pancreas (Acute) bx 03/29 at [facility] [place] Hypertension (Chronic) Acute on chronic anemia (Acute) Liver failure, acute (Acute) Hyperbilirubinemia (Acute) Thrombocytopenia (Acute) Transaminitis (Acute) Jaundice (Acute) Anxiety (Chronic) chronic benzodiazipine use 03/27/17 FLOR-7 SCORE=7 07/02/17 FLOR-7 SCORE=13 Diverticulosis of colon without diverticulitis (Chronic) Lichen planus (Chronic) mouth OAB (overactive bladder) (Acute) Medical History Nuclear age-related cataract, left eye Ingrown nail Osteoporosis Insomnia Hematuria Neg work-up 2013. UA not meeting RBC in years since for repeat Right hip pain (03/27/17) Hypercholesterolemia Generalized osteoarthrosis low back pain; xray + DJD Ingrowing toenail (04/14/14) Hematuria unspeficified; asymptomatic; neg W/U Fatigue 06/26/12 Ingrown toenail 04/14/14 Urinary tract infectious disease recurrent Surgical History Nuclear age-related cataract, right eye History of cataract surgery History of bladder repair surgery Status post laparoscopic hysterectomy H/O bladder repair surgery sling S/P laparoscopic hysterectomy 05/07/83 partial, dysmenorrhea Hysterectomy, Laproscopic (~1983) partial; dysmenorrhea Bladder Surgery (~1999) SLING Family History Mother , age 92 Dementia Father , age 78 Cancer Brother Asthma Brother ALS (amyotrophic lateral sclerosis) Brother No problems noted. Maternal Grandfather , age 50 Black lung disease Paternal Grandfather , age 65 Black lung disease Maternal Grandmother , age 80 No problems noted. Paternal Grandmother , age 84 No problems noted. Son No problems noted. Son No problems noted. Social History Smoking/Tobacco Use Status: Former Tobacco Use tobacco type: cigarettes Quit Date: 05/07/97 Tobacco: How many years used: 30 Second Hand Exposure: Yes Smoking risk assessment performed?: Yes Alcohol Intake: current Alcohol Intake frequency: holidays/special occasions only Drug use: Never Substance use type: does not use Adopted: No Household members: spouse Housing: house Number of Children: 2 number of grandchildren: 4 Communication Needs: None Education Level: college Details: A.S. 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 Pets and animals: No Sexually active: No Do you think of yourself as: straight/heterosexual Current gender identity: female What is your relationship status?: How often do you talk on the phone with friends or family?: three or more times per week How often do you get together with friends or relatives?: decline to answer How often do you attend methodist or spiritism services?: 4 or more times per year Do you belong to any clubs or organized social groups?: yes Panel score (0-1 are the most socially isolated patients): 4 What type of physical activity do you participate in: walking, aerobic, bicycling and swimming Duration: 30-45 minutes/day Frequency: 3-4 times per week Lorraine/Mandaen: Anglican Special lorraine needs: No Seatbelt use: always Helmet use: Yes Helmet use: always Drive intox or ride w/intox refrigerated company driver: No Firearms in home: Yes Do you feel safe at home: Yes Do you feel safe in your relationship?: Yes Victim of physical abuse: No Victim of emotional abuse: No Victim of sexual abuse: No Would you like helpful sources: No
[2024-08-30 15:13] LABS: Abs Immature Grans 0.02 10^3/uL (0.0-0.06); Absolute Basophil Count 0.02 10^3/uL (0.0-0.2); Absolute Eosinophil Count 0.05 10^3/uL (0.0-0.7); Absolute Lymphocyte Count 0.98 10^3/uL (1.2-3.4); Absolute Monocyte Count 0.37 10^3/uL (0.1-0.8); Absolute Neutrophil Count 5.87 10^3/uL (1.2-6.7); Basophils % 0.3 %; Eosinophils % 0.7 %; HCT 32.7 % (36.0-46.0); HGB 10.9 g/dL (11.2-15.7); Immature Grans % 0.3 %; Lymphocytes % 13.4 %; MCH 27.3 pg (27.0-33.0); MCHC 33.3 % (32.0-36.0); MCV 82 fL (80-95); MPV 11.7 fL (8.0-11.0); Monocytes % 5.1 %; Neutrophils % 80.2 %; Platelet Count 238 10^3/uL (130-400); RBC 3.99 10^6/uL (3.93-5.22); RDW 16.4 % (11.7-14.6); RDW-SD 49.4 fL; WBC 7.31 10^3/uL (4.4-10.8)
[2024-08-30 15:25] LABS: PTT Activated 26.2 sec (20.6-30.2); Prothrombin Time 10.1 sec (9.1-11.1)
[2024-08-30 15:27] LABS: Ammonia 21 umol/L (11-32)
[2024-08-30 15:39] LABS: ALT 233 U/L (14-59); AST 135 U/L (15-37); Albumin 2.5 g/dL (3.4-5.0); Anion Gap 6.6 mmol/L (3-11); BUN 25 mg/dL (7-18); CO2 29.4 mmol/L (21.0-32.0); CREATININE 1.1 mg/dL (0.55-1.02); Calcium 9.3 mg/dL (8.5-10.1); Chloride 98 mmol/L (98-107); Glucose 409 mg/dL (74-106); Lipase 6 U/L (<78); Sodium 134 mmol/L (136-145); Total Protein 7.7 g/dL (6.4-8.2)
[2024-08-30] MEDS: hydrOXYzine HCL 25 MG TAB PO (15:43)
[2024-08-30] MEDS: Normal Saline 500 ML IV (15:45)
[2024-08-30 15:57] LABS: Alkaline Phosphatase 1593 U/L (46-116); ETHANOL BLOOD < 3.0 mg/dL (<10)
[2024-08-30] MEDS: Omnipaque 350 MG/ML 100 ML BTL IJ (16:00)
[2024-08-30] MEDS: Normal Saline - Diluent 50 ML VIAL IJ (16:01)
[2024-08-30 16:28] LABS: Lab Add On Test DONE
[2024-08-30 16:39] LABS: Bilirubin, Direct 3.4 mg/dL (0.0-0.2)
[2024-08-30 17:29] LABS: Bilirubin Small (Negative); Blood Moderate (Negative); Clarity Clear (Clear); Glucose 500 mg/dL (Negative); Ketones Negative (Negative); Leukocyte Esterase Negative (Negative); Nitrite Negative (Negative); Urobilinogen 0.2 mg/dL (Up to 0.2); pH 5.5 (5-8)
[2024-08-30 17:37] LABS: Bacteria Negative HPF (Negative); C & S Indicated? No; Casts 0-2 Hyaline LPF (Negative); Crystals Negative HPF (Negative); Epithelial Cells Few HPF (Negative); Mucus Trace (Negative)
--- NOTE | 2024-08-30 18:14 | W.PM.HP.N ---
Date of service: 08/30/24 Time of Service: 18:14 Assessment and Plan Assessment and plan (1) Hyperbilirubinemia: Status: Acute Assessment and plan: Elevated as per HPI CMP in the morning Expecting improvement status post ERCP at [facility] on Sunday Called to be placed at 830 on Sunday to schedule procedure the same day Keep patient n.p.o. Sunday after midnight (2) DIMITRY (acute kidney injury): Status: Acute Assessment and plan: As per HPI LR 500 cc IV bolus in the ED No history of heart failure Hx as per patient We will initiate slow IV fluid in the setting of elevated creatinine and IV contrast administration CMP in AM (3) Nausea & vomiting: Status: Acute Assessment and plan: Compazine as needed Home dose Haldol for nausea (4) Diabetes mellitus: Status: Chronic Assessment and plan: POC blood sugar AC and at bedtime with SSI coverage On home dose insulin glargine Glucose on admission was 409 with last A1c 12.2 CMP in a.m. (5) Transaminitis: Status: Acute Assessment and plan: Ongoing slightly improved ALT only, AST and Alk phos worsening CMP in AM (6) Adenocarcinoma of pancreas: Status: Acute Assessment and plan: Completed chemotherapy and radiotherapy one year ago As per CT: pancreatic head is heterogeneous most likely correlating with Hx of known pancreatic carcinoma. On home dose Creon (7) Hypertension: Status: Chronic Assessment and plan: On home medicine regimen (8) On deep vein thrombosis (DVT) prophylaxis: Status: Acute Assessment and plan: On LMWH Discussed with Dr Hair History of Present Illness History of Present Illness Chief Complaint: Nausea, vomiting, jaundice Narrative: This 79 years old female patient with past medical history of adenocarcinoma of the pancreas, negative pet scan type 2 diabetes on insulin overactive bladder, hyperlipidemia presented to the ED for evaluation of vomiting, jaundice and itching. Blood work positive for total bilirubin at 4.0, conjugated bilirubin at 3.4, ongoing transaminitis with AST at 135, ALT at 233 and alk phos at 1593, stable anemia at 10 and 3, sodium 134, BUN/creatinine at 25 and 1.1 with previous at 23 and 0.7. Imaging showed findings of intrahepatic biliary duct dilation with pneumobilia of the left liver lobe, obstruction of the splenic vein, splenomegaly with questionable infarcts. [facility] [place] Keene was consulted with recommendations admission and [facility] for further monitoring and for ERCP on Sunday with call to be placed at 8:30 in the morning to [facility] for roundtrip procedure scheduling the same day. No recommendation for antibiotic without leukocytosis or febrile illness. The patient was admitted to the hospitalist team for ongoing monitoring, evaluation and management of DIMITRY, hyperbilirubinemia, nausea vomiting. Full CODE STATUS as per COLST form on file and as per discussion with patient. The patient denied dizziness, fever, change in vision, chest pain, hematemesis, hematochezia, melena, roman colored stool, abdominal pain, diarrhea or dysuria. Reporting vomiting on and off for couple of days and 1 last time prior to presentation to the ED after caregiver noticed that she was jaundiced. Complains of pruritus. Nausea had resolved when seen. Review of Systems All systems reviewed & are unremarkable except as noted in HPI and below PFSH All Active Problems (Updated 08/30/24 @ 18:53 by Caro Bryan APRN) On deep vein thrombosis (DVT) prophylaxis (Acute) Diabetes mellitus (Chronic) Nausea & vomiting (Acute) DIMITRY (acute kidney injury) (Acute) Impaired functional mobility, balance, gait, and endurance (Acute) Peripheral neuropathy (Acute) Diabetic amyotrophy (Acute) Peroneal neuropathy (Acute) Heart murmur (Acute) Balance problem (Acute) Foot drop, left (Acute) Advanced care planning/counseling discussion (Acute) Low back pain potentially associated with radiculopathy (Acute) Hip pain (Acute) Diabetes mellitus with neuropathy (Acute) Nail dystrophy (Acute) Memory changes (Acute) Mass, brain (Acute) MRI 04/17/23 3mm small enhancing focus ? mets Adenocarcinoma of pancreas (Acute) bx 03/29 at [facility] Hypertension (Chronic) Acute on chronic anemia (Acute) Liver failure, acute (Acute) Hyperbilirubinemia (Acute) Thrombocytopenia (Acute) Transaminitis (Acute) Jaundice (Acute) OAB (overactive bladder) (Acute) Lichen planus (Chronic) mouth Diverticulosis of colon without diverticulitis (Chronic) Anxiety (Chronic) chronic benzodiazipine use 03/27/17 FLOR-7 SCORE=7 07/02/17 LFOR-7 SCORE=13 Medical History Nuclear age-related cataract, left eye Ingrown nail Osteoporosis Insomnia Hematuria Neg work-up 2013. UA not meeting RBC in years since for repeat Right hip pain (03/27/17) Hypercholesterolemia Generalized osteoarthrosis low back pain; xray + DJD Ingrowing toenail (04/14/14) Hematuria unspeficified; asymptomatic; neg W/U Fatigue 06/26/12 Ingrown toenail 04/14/14 Urinary tract infectious disease recurrent Surgical History Nuclear age-related cataract, right eye History of cataract surgery History of bladder repair surgery Status post laparoscopic hysterectomy H/O bladder repair surgery sling S/P laparoscopic hysterectomy 05/07/83 partial, dysmenorrhea Hysterectomy, Laproscopic (~1983) partial; dysmenorrhea Bladder Surgery (~1999) SLING Family History Mother , age 92 Dementia Father , age 78 Cancer Brother Asthma Brother ALS (amyotrophic lateral sclerosis) Brother No problems noted. Maternal Grandfather , age 50 Black lung disease Paternal Grandfather , age 65 Black lung disease Maternal Grandmother , age 80 No problems noted. Paternal Grandmother , age 84 No problems noted. Son No problems noted. Son No problems noted. Social History Smoking/Tobacco Use Status: Former Tobacco Use tobacco type: cigarettes Quit Date: 05/07/97 Tobacco: How many years used: 30 Second Hand Exposure: Yes Smoking risk assessment performed?: Yes Alcohol Intake: current Alcohol Intake frequency: holidays/special occasions only Drug use: Never Substance use type: does not use Adopted: No Household members: spouse Housing: house Number of Children: 2 number of grandchildren: 4 Communication Needs: None Education Level: college Details: A.S. 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 Pets and animals: No Sexually active: No Do you think of yourself as: straight/heterosexual Current gender identity: female What is your relationship status?: How often do you talk on the phone with friends or family?: three or more times per week How often do you get together with friends or relatives?: decline to answer How often do you attend restoration or mosque services?: 4 or more times per year Do you belong to any clubs or organized social groups?: yes Panel score (0-1 are the most socially isolated patients): 4 What type of physical activity do you participate in: walking, aerobic, bicycling and swimming Duration: 30-45 minutes/day Frequency: 3-4 times per week Lorraine/Anglican: Buddhism Special lorraine needs: No Seatbelt use: always Helmet use: Yes Helmet use: always Drive intox or ride w/intox wedding transportation driver: No Firearms in home: Yes Do you feel safe at home: Yes Do you feel safe in your relationship?: Yes Victim of physical abuse: No Victim of emotional abuse: No Victim of sexual abuse: No Would you like helpful sources: No Meds Allergies and Home Medications Allergies Allergy/AdvReac Type Severity Reaction Status Date / Time ibuprofen AdvReac Mild Stomach Verified 08/30/24 14:32 cramps Home Medications ?Medication ?Instructions ?Recorded ?Confirmed ?Type pen needle, diabetic 31 gauge x #90 ea 10/31/22 08/30/24 Rx 3/16 (BD Ultra-Fine Mini Pen Needle) vibegron 75 mg tablet (Gemtesa) 75 mg PO DAILY 03/28/23 08/30/24 History blood-glucose meter (FreeStyle #1 ea 04/03/23 08/30/24 Rx Lite Meter kit) polyethylene glycol 3350 17 17 g PO BID PRN laxative effect 04/23/23 08/30/24 Rx gram/dose oral powder (Miralax) #238 grams lancets 28 gauge (FreeStyle #300 ea 05/08/23 08/30/24 Rx Lancets) blood sugar diagnostic (FreeStyle #300 ea 05/29/23 08/30/24 Rx Test strips) Creon 24,000-76,000-120,000 unit 1 cap PO TID #270 caps 05/30/23 08/30/24 Rx capsule,delayed release (mrtwbj-yseyjfgd-ywuefjn) estradiol 0.01% (0.1 mg/gram) 1 g vaginal DAILY #42.5 grams 06/21/23 08/30/24 Rx vaginal cream triamcinolone acetonide 0.1 % 1 applic topical DAILY PRN 06/28/23 08/30/24 Rx topical cream irritation #80 grams fluticasone propionate 50 2 spray intranasal DAILY #16 grams 07/16/23 08/30/24 Rx mcg/actuation nasal spray,suspension haloperidol 0.5 mg tablet 0.5 mg PO BID PRN nausea and 07/16/23 08/30/24 Rx vomiting #30 tabs ondansetron HCl 8 mg tablet 8 mg PO Q8H 07/16/23 08/30/24 History prochlorperazine maleate 10 mg mg PO 07/16/23 08/14/24 History tablet mirabegron 50 mg tablet,extended 50 mg PO DAILY #90 tabs 11/01/23 08/30/24 Rx release 24 hr (Myrbetriq) pregabalin 25 mg capsule 25 mg PO BID #180 caps 12/12/23 08/30/24 Rx clonazepam 0.5 mg tablet 0.5 mg PO BID #180 tab-caps 03/10/24 08/30/24 Rx methenamine hippurate 1 gram tablet 1 g PO BID #180 tab-caps 03/21/24 08/30/24 Rx quetiapine 50 mg tablet 50 mg PO BID #180 tabs 06/13/24 08/30/24 Rx pen needle, diabetic 31 gauge x #200 ea 06/18/24 08/30/24 Rx 3/16 (BD Ultra-Fine Mini Pen Needle) insulin glargine 100 unit/mL (3 See Rx Instructions subcut BID #45 08/14/24 08/30/24 Rx mL) subcutaneous pen (Lantus mL Solostar U-100 Insulin) celecoxib 100 mg capsule 100 mg PO BID #180 caps 08/28/24 08/30/24 Rx Exam Narrative Exam Narrative: Constitutional The patient is sitting on stretcher without acute distress HENMT: Icteric sclera, facial structures with normal appearance Eyes: Well aligned, intact ROM Neuro:alert and oriented X4 , appears non-focal Resp: Normal respiratory pattern, speaks in full sentences, unlabored breathing, clear lung bilaterally Cardio: SR on court recording monitor HR 62, S1, S2, + murmur VS split souind to RST, positive radial and pedal pulses , no LE edema GI: Abdomen is not distended, soft and non tender, bowel sounds are present Integumentary: Jaundiced /icteric , no open sores Extremities:moves all 4 ext Psych: RASS 0, congruent mood and normal affect. Results Labs 08/30/24 15:00 08/30/24 15:00 Labs: Laboratory Results - last 24 hr 08/30/24 08/30/24 08/30/24 15:00 16:23 17:20 WBC 7.31 RBC 3.99 Hgb 10.9 L Hct 32.7 L MCV 82 MCH 27.3 MCHC 33.3 RDW 16.4 H Plt Count 238 MPV 11.7 H Immature Gran % 0.3 Neutrophils % 80.2 Lymphocytes % 13.4 Monocytes % 5.1 Eosinophils % 0.7 Basophils % 0.3 Nucleated RBC % 0.0 Absolute Neutrophils 5.87 Absolute Lymphocytes 0.98 L Absolute Monocytes 0.37 Absolute Eosinophils 0.05 Absolute Basophils 0.02 PT 10.1 INR 1.0 APTT 26.2 Sodium 134 L Potassium 4.0 Chloride 98 Carbon Dioxide 29.4 Anion Gap 6.6 BUN 25 H Creatinine 1.1 H Est GFR (CKD-EPI 2020) 50.80 Glucose 409 H Calcium 9.3 Total Bilirubin 4.0 H Conjugated Bilirubin 3.4 H AST 135 H ALT 233 H Alkaline Phosphatase 1593 H Ammonia 21 Total Protein 7.7 Albumin 2.5 L Lipase 6 Urine Color Yellow Urine Clarity Clear Urine pH 5.5 Ur Specific [place] 1.010 Urine Protein Trace Urine Ketones Negative Urine Blood Moderate H Urine Nitrite Negative Urine Bilirubin Small H Urine Urobilinogen 0.2 Ur Leukocyte Esterase Negative Urine RBC 5-10 H Urine WBC 3-5 Ur Epithelial Cells Few Urine Crystals Negative Urine Bacteria Negative Urine Casts 0-2 Hyaline Urine Mucus Trace Ur Culture Indicated? No Urine Glucose 500 H Ethyl Alcohol < 3.0 Add-On Test Request DONE Last Vital Signs Temp 37.0 C 08/30/24 14:28 Pulse 59 L 08/30/24 18:10 Resp 18 08/30/24 18:10 BP 133/65 08/30/24 18:00 Pulse Ox 94 08/30/24 18:10 Time Spent Time spent with Patient: >75 minutes Time was spent: preparing to see the patient(eg.review tests), obtaining and/or reviewing separately otained hiistory, ordering medications,tests, procedures, referring, communicating with other health children's zoo caretaker, indepentently interpreting results, counseling the patient and care coordination
--- NOTE | 2024-08-30 20:02 | W.PC.ACHO ---
Registration Status: Primary Language: Preferred Language: ED Information & Data Chief Complaint GenMedical 08/30/24 14:56 Triage Note caregiver at home stated she 08/30/24 14:28 looked jaundice today. pt has hxo of pancreatic cancer has undergone chemo and radiation. last treatment a year ago. denies abdominal pain, endorses constipation which is managed by pt. Medical / Surgical History (Last Reviewed 04/10/24 @ 16:57 by Altagracia Loyd MD) Nuclear age-related cataract, left eye Ingrown nail Osteoporosis Insomnia Hematuria Right hip pain (03/27/17) Hypercholesterolemia Generalized osteoarthrosis Ingrowing toenail (04/14/14) Hematuria Fatigue Ingrown toenail Urinary tract infectious disease (Last Reviewed 04/10/24 @ 16:57 by Altagracia Loyd MD) Nuclear age-related cataract, right eye History of cataract surgery History of bladder repair surgery Status post laparoscopic hysterectomy H/O bladder repair surgery S/P laparoscopic hysterectomy Hysterectomy, Laproscopic (~1983) Bladder Surgery (~1999) Most Recent Vital Signs Temperature 37.0 C 08/30/24 14:28 Pulse 59 L 08/30/24 18:46 Pulse 78 08/30/24 19:00 Respiratory Rate 21 08/30/24 19:00 Respiratory Effort Normal 08/30/24 14:53 Blood Pressure 158/63 H 08/30/24 18:46 Blood Pressure Mean 90 08/30/24 18:46 Pulse Oximetry 97 08/30/24 18:46 Oxygen Delivery Method Room Air 08/30/24 14:28 Oxygen Flow Rate 0 08/30/24 14:28 Pain Level 0 08/30/24 14:28 Allergies ibuprofen Adverse Reaction (Mild, Verified 08/30/24 14:32) Stomach cramps Precautions Isolation Standard precaution 08/30/24 14:35 Active Medications Generic Name Dose Route Start Last Admin Trade Name Freq PRN Reason Stop Dose Admin Iohexol 100 ml 08/30/24 16:00 08/30/24 16:00 Omnipaque 350 Mg/Ml 100 Ml Btl IJ 09/29/24 23:59 75 ml DIRECTED SYDNI Administration Sodium Chloride 50 ml 08/30/24 16:15 08/30/24 16:01 Normal Saline - Diluent 50 Ml Vial IJ 50 ml .FOR DI USE SYDNI Administration IV IV Catheter Type [Left Peripheral IV Antecubital] IV Catheter Gauge [Left 18 Antecubital] Diagnostics 08/30/24 08/30/24 08/30/24 Range/Units 17:20 16:23 15:00 WBC 7.31 (4.4-10.8) 10^3/uL RBC 3.99 (3.93-5.22) 10^6/uL Hgb 10.9 L (11.2-15.7) g/dL Hct 32.7 L (36.0-46.0) % MCV 82 (80-95) fL MCH 27.3 (27.0-33.0) pg MCHC 33.3 (32.0-36.0) % RDW 16.4 H (11.7-14.6) % Plt Count 238 (130-400) 10^3/uL MPV 11.7 H (8.0-11.0) fL Immature Gran % 0.3 % Neutrophils % 80.2 % Lymphocytes % 13.4 % Monocytes % 5.1 % Eosinophils % 0.7 % Basophils % 0.3 % Nucleated RBC % 0.0 (0.0-0.3) % Absolute Neutrophils 5.87 (1.2-6.7) 10^3/uL Absolute Lymphocytes 0.98 L (1.2-3.4) 10^3/uL Absolute Monocytes 0.37 (0.1-0.8) 10^3/uL Absolute Eosinophils 0.05 (0.0-0.7) 10^3/uL Absolute Basophils 0.02 (0.0-0.2) 10^3/uL PT 10.1 (9.1-11.1) sec INR 1.0 (0.9-1.1) APTT 26.2 (20.6-30.2) sec Sodium 134 L (136-145) mmol/L Potassium 4.0 (3.5-5.1) mmol/L Chloride 98 (98-107) mmol/L Carbon Dioxide 29.4 (21.0-32.0) mmol/L Anion Gap 6.6 (3-11) mmol/L BUN 25 H (7-18) mg/dL Creatinine 1.1 H (0.55-1.02) mg/dL Est GFR (CKD-EPI 2020) 50.80 (mL/min/1.73m2) Glucose 409 H (74-106) mg/dL Calcium 9.3 (8.5-10.1) mg/dL Total Bilirubin 4.0 H (0.2-1.0) mg/dL Conjugated Bilirubin 3.4 H (0.0-0.2) mg/dL AST 135 H (15-37) U/L ALT 233 H (14-59) U/L Alkaline Phosphatase 1593 H (46-116) U/L Ammonia 21 (11-32) umol/L Total Protein 7.7 (6.4-8.2) g/dL Albumin 2.5 L (3.4-5.0) g/dL Lipase 6 (<78) U/L Urine Color Yellow (Yellow) Urine Clarity Clear (Clear) Urine pH 5.5 (5-8) Ur Specific [place] 1.010 (1.005-1.025) Urine Protein Trace (Neg-Trace) mg/dL Urine Ketones Negative (Negative) mg/dL Urine Blood Moderate H (Negative) Urine Nitrite Negative (Negative) Urine Bilirubin Small H (Negative) Urine Urobilinogen 0.2 (Up to 0.2) mg/dL Ur Leukocyte Esterase Negative (Negative) Urine RBC 5-10 H (0-2) HPF Urine WBC 3-5 (0-5) HPF Ur Epithelial Cells Few (Negative) HPF Urine Crystals Negative (Negative) HPF Urine Bacteria Negative (Negative) HPF Urine Casts 0-2 Hyaline (Negative) LPF Urine Mucus Trace (Negative) Ur Culture Indicated? No Urine Glucose 500 H (Negative) mg/dL Ethyl Alcohol < 3.0 (<10) mg/dL Hepatitis A IgM Ab Pending Hep Bs Antigen Pending Hep B Core Total Ab Pending Hepatitis C Antibody Pending Add-On Test Request DONE Intake and Output - 24 Hour Total 08/30/24 14:26 thru 08/30/24 14:28 Weight 61.235 kg Falls Risk Assessment History of Falls No History 08/30/24 14:52 Ambulatory Aids Uses ambulatory device 08/30/24 14:52 Tubes/Lines None 08/30/24 14:52 Gait Evaluation W/no contributing factors 08/30/24 14:52 Cognition No cognitive impairment 08/30/24 14:52 Fall Total Score 08/30/24 14:52 Level of Risk Moderate Risk 08/30/24 14:52 Problems (Last Reviewed 04/10/24 @ 16:57 by Altagracia Loyd MD) On deep vein thrombosis (DVT) prophylaxis (Acute) Diabetes mellitus (Chronic) Nausea & vomiting (Acute) DIMITRY (acute kidney injury) (Acute) Adenocarcinoma of pancreas (Acute) Hypertension (Chronic) Hyperbilirubinemia (Acute) Transaminitis (Acute) v v v v v v v v v Sending and/or Receiving Nurses: Please use comment section below to note any information pertinent to the patient hand-off not included above. Information / Comments: Report given by BRIEF WRITERMINERVA Arora, patient is AO x 3. with diagnosis of blockage of bile duct and jaundice in appearance. She is Diabetic with glucos of 405., ambulate with one assist. Patient will go to on Sunday for OR and come back to [facility]. All questions answered promptly. Report received from:
[2024-08-30] MEDS: Lactated Ringers 1,000 ML 80 ML IV (20:57)
[2024-08-30] MEDS: Insulin Aspart 300 UNITS/3 ML PEN SC (22:11)
[2024-08-30] MEDS: Creon, Lipase 24,000 CAPCR 1 CAP PO (22:13)
[2024-08-30] MEDS: clonazePAM 0.5 MG TAB PO (22:13)
[2024-08-30] MEDS: Pregabalin 25 MG CAP PO (22:13)
[2024-08-30] MEDS: Celecoxib 100 MG CAP PO (22:13)
[2024-08-30] MEDS: Pantoprazole 40 MG VIAL IVP (22:14)
[2024-08-30] MEDS: QUEtiapine 50 MG TAB PO (22:14)
[2024-08-31 02:00] VITALS: BP 102/66; PULSE 67; RESP 17; TEMP 36.2; O2SAT 95
[2024-08-31 07:33] VITALS: BP 112/60; PULSE 73; RESP 18; TEMP 36.5; O2SAT 95
[2024-08-31 07:50] LABS: Abs Immature Grans 0.02 10^3/uL (0.0-0.06); Absolute Basophil Count 0.02 10^3/uL (0.0-0.2); Absolute Eosinophil Count 0.17 10^3/uL (0.0-0.7); Absolute Lymphocyte Count 0.83 10^3/uL (1.2-3.4); Absolute Monocyte Count 0.56 10^3/uL (0.1-0.8); Basophils % 0.3 %; Eosinophils % 2.8 %; HCT 28.7 % (36.0-46.0); HGB 9.8 g/dL (11.2-15.7); Immature Grans % 0.3 %; Lymphocytes % 13.6 %; MCH 27.2 pg (27.0-33.0); MCHC 34.1 % (32.0-36.0); MCV 80 fL (80-95); MPV 12.4 fL (8.0-11.0); Monocytes % 9.2 %; Neutrophils % 73.8 %; Platelet Count 202 10^3/uL (130-400); RDW 16.6 % (11.7-14.6); RDW-SD 48.3 fL
[2024-08-31 08:16] LABS: ALT 170 U/L (14-59); AST 105 U/L (15-37); Albumin 2.1 g/dL (3.4-5.0); Anion Gap 6.3 mmol/L (3-11); BUN 21 mg/dL (7-18); Bilirubin, Total 5.6 mg/dL (0.2-1.0); CO2 28.7 mmol/L (21.0-32.0); CREATININE 0.7 mg/dL (0.55-1.02); Calcium 8.9 mg/dL (8.5-10.1); Chloride 104 mmol/L (98-107); Estimated GFR 87.37 (mL/min/1.73m2); Glucose 71 mg/dL (74-106); Potassium 3.7 mmol/L (3.5-5.1); Sodium 139 mmol/L (136-145); Total Protein 6.8 g/dL (6.4-8.2)
[2024-08-31 08:19] LABS: Alkaline Phosphatase 1368 U/L (46-116)
[2024-08-31] MEDS: Pregabalin 25 MG CAP PO ×2 (08:19→19:47)
[2024-08-31] MEDS: Mirabegron 25 MG TABCR PO (08:19)
[2024-08-31] MEDS: Pantoprazole 40 MG VIAL IVP (08:19)
[2024-08-31] MEDS: Insulin Glargine 300 UNITS/3 ML PEN 22 UNITS SC (08:19)
[2024-08-31] MEDS: QUEtiapine 50 MG TAB PO ×2 (08:19→19:47)
[2024-08-31] MEDS: clonazePAM 0.5 MG TAB PO ×2 (08:19→19:47)
[2024-08-31] MEDS: Creon, Lipase 24,000 CAPCR 1 CAP PO ×3 (08:19→19:47)
[2024-08-31] MEDS: Celecoxib 100 MG CAP PO ×2 (08:19→19:47)
[2024-08-31] MEDS: Enoxaparin 40 MG/0.4 ML SYR SC (12:02)
--- NOTE | 2024-08-31 12:34 | PGE_ITS ---
Date of Service Date of service: 08/31/24 Time of Service: 12:34 Assessment and Plan Assessment and plan (1) Elevated liver enzymes: Status: Acute Assessment and plan: in the setting of a history of pancreatic carcinoma with biliary stent in place concerning for obstruction no fever or pain concerning for acute cholangitis. case was discussed with DR Keene. She recommends a down and back procedure on Sunday as they are not able to do any procedures over the weekend. She requests that we contact [facility] at 8:30 AM on Sunday morning to facilitate down and back procedure. NPO after midnight tonight. Contact [facility] immediately if the patient does develop fever or pain. does not recommend starting any antibiotics at this time as the patient has no white count or fever. avoid hepatotoxic drugs monitor labs and clinical symptoms closely (2) Adenocarcinoma of pancreas: Status: Acute Assessment and plan: Completed chemotherapy and radiotherapy one year ago As per CT: pancreatic head is heterogeneous most likely correlating with Hx of known pancreatic carcinoma. continue home dose Creon (3) DIMITRY (acute kidney injury): Status: Acute Assessment and plan: resolved with IV hydration monitor (4) Nausea & vomiting: Status: Acute Assessment and plan: Compazine as needed Home dose Haldol for nausea (5) Diabetes mellitus: Status: Chronic Assessment and plan: POC blood sugar AC and at bedtime with SSI coverage On home dose insulin glargine, will hold HS dose as she will be NPO and blood sugars better controlled in hospital 70-138 today Glucose on admission was 409 with last A1c 12.2 (6) Hypertension: Status: Chronic Assessment and plan: blood pressure controlled continue home meds monitor and adjust as needed. (7) On deep vein thrombosis (DVT) prophylaxis: Status: Acute Assessment and plan: On LMWH Discussed with Dr Villanueva Subjective Subjective Patient reports: no new complaints, feels better, tolerating liquids well and afebrile; denies diarrhea, nausea or vomiting Interval history since last seen: No abdominal pain or fever, remains hemodynamically stable Exam Narrative Exam Narrative: Well-appearing female of stated age in no acute distress head is atraumatic eyes nonicteric noninjected oral mucosa is moist cardiovascular regular rate and rhythm respirations even and unlabored abdomen is round soft nontender she moves extremities equally no peripheral edema neurologic she is awake alert oriented no focal deficits psychiatric appropriate mood and affect Objective Last Vital Signs Temp 36.5 C 04/27/25 07:33 Pulse 73 08/31/24 07:33 Resp 18 08/31/24 07:33 BP 112/60 08/31/24 07:33 Pulse Ox 95 08/31/24 07:33 Laboratory Results - last 24 hr 08/30/24 08/30/24 08/30/24 15:00 16:23 17:20 WBC 7.31 RBC 3.99 Hgb 10.9 L Hct 32.7 L MCV 82 MCH 27.3 MCHC 33.3 RDW 16.4 H Plt Count 238 MPV 11.7 H Immature Gran % 0.3 Neutrophils % 80.2 Lymphocytes % 13.4 Monocytes % 5.1 Eosinophils % 0.7 Basophils % 0.3 Nucleated RBC % 0.0 Absolute Neutrophils 5.87 Absolute Lymphocytes 0.98 L Absolute Monocytes 0.37 Absolute Eosinophils 0.05 Absolute Basophils 0.02 PT 10.1 INR 1.0 APTT 26.2 Sodium 134 L Potassium 4.0 Chloride 98 Carbon Dioxide 29.4 Anion Gap 6.6 BUN 25 H Creatinine 1.1 H Est GFR (CKD-EPI 2020) 50.80 Glucose 409 H Calcium 9.3 Total Bilirubin 4.0 H Conjugated Bilirubin 3.4 H AST 135 H ALT 233 H Alkaline Phosphatase 1593 H Ammonia 21 Total Protein 7.7 Albumin 2.5 L Lipase 6 Urine Color Yellow Urine Clarity Clear Urine pH 5.5 Ur Specific [place] 1.010 Urine Protein Trace Urine Ketones Negative Urine Blood Moderate H Urine Nitrite Negative Urine Bilirubin Small H Urine Urobilinogen 0.2 Ur Leukocyte Esterase Negative Urine RBC 5-10 H Urine WBC 3-5 Ur Epithelial Cells Few Urine Crystals Negative Urine Bacteria Negative Urine Casts 0-2 Hyaline Urine Mucus Trace Ur Culture Indicated? No Urine Glucose 500 H Ethyl Alcohol < 3.0 Add-On Test Request DONE 08/31/24 07:00 WBC 6.10 RBC 3.60 L Hgb 9.8 L Hct 28.7 L MCV 80 MCH 27.2 MCHC 34.1 RDW 16.6 H Plt Count 202 MPV 12.4 H Immature Gran % 0.3 Neutrophils % 73.8 Lymphocytes % 13.6 Monocytes % 9.2 Eosinophils % 2.8 Basophils % 0.3 Nucleated RBC % 0.0 Absolute Neutrophils 4.50 Absolute Lymphocytes 0.83 L Absolute Monocytes 0.56 Absolute Eosinophils 0.17 Absolute Basophils 0.02 PT INR APTT Sodium 139 Potassium 3.7 Chloride 104 Carbon Dioxide 28.7 Anion Gap 6.3 BUN 21 H Creatinine 0.7 Est GFR (CKD-EPI 2020) 87.37 Glucose 71 L Calcium 8.9 Total Bilirubin 5.6 H Conjugated Bilirubin AST 105 H ALT 170 H Alkaline Phosphatase 1368 H Ammonia Total Protein 6.8 Albumin 2.1 L Lipase Urine Color Urine Clarity Urine pH Ur Specific [place] Urine Protein Urine Ketones Urine Blood Urine Nitrite Urine Bilirubin Urine Urobilinogen Ur Leukocyte Esterase Urine RBC Urine WBC Ur Epithelial Cells Urine Crystals Urine Bacteria Urine Casts Urine Mucus Ur Culture Indicated? Urine Glucose Ethyl Alcohol Add-On Test Request Time Spent with Patient Time Spent with Patient: 35-49 minutes Time was spent: preparing to see the patient(eg.review tests), obtaining and/or reviewing separately otained hiistory, ordering medications,tests, procedures, referring, communicating with other health hearing healthcare practitioner, indepentently interpreting results and counseling the patient
[2024-08-31] MEDS: Docusate Sodium 100 MG CAP PO ×2 (12:44→19:47)
--- NOTE | 2024-08-31 17:17 | PDOC.CMIN ---
Date of service: 08/31/24 Time of Service: 17:17 Care Management Initial Assmt Initial Assessment Reason for Hospitalization: pancreatic stent occlusion, vomiting, hyperbilirubinemia Functional Status/Living Situation Patient Presentation: Tina was lying in bed when CM met with her. She was pleasant and engaged well in conversation. She reported that she lives in [place] with her , Raman Cam. They have two adult sons, and four grandchildren. She discussed how close and supportive her family is, elaborating on how important it was for her and her family to do things together from the time that her children were young. Tina is an avid skier, who was sad to say that she recently had to give up skiing due to her foot drop and her diagnosis of pancreatic cancer, which she has lived with for a year and a half. She stated that she doesn't have symptoms from the cancer, which she is grateful for. Tina stated that she has longterm care insurance that she obtained in her thirties, which is now paying for a caregiver, Jodie, who comes M, Sara, from 10:30-2:30. She stated that her caregiver does everything, from housework to supporting her with taking a walk outside. 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 She stated that they are comfortable financially, and have [employer] insurance from her 's years in the service. Tina is scheduled [place] [facility] [place], down and back tomorrow. She is on a liquid diet, which she doesn't care for, and is looking forward to eating again after the procedure is done. CM will continue to follow. Town of Residence: [place] Resides with: Spouse Significant Other/Family: Local Caregiver/Guardian: Paid caregiver Sara Gongora Sa from 10:30-2:30 Natural Supports: and two sons are very supportive; one son lives near [place] and the other in [place]. Employment Status: Retired Instrumental Activities of Daily Living (ADLs): Requires support Activities/Hobbies/SocialSupport: Tina is very active, both physically and socially. Medications Medication Management: No Issues/Barriers identified Physical Functioning/Mobility Assistive Device: Brace for foot drop Advance Directives Advance Directives: Do you have an Advance Directive: Y 05/28/24 12:35 AD On File at [facility]: Y 05/28/24 12:35 Date Asked 06/13/18 08/30/24 14:38 AD Date Reviewed 08/30/24 08/30/24 14:38 COLST On File at [facility] COLST Date Scanned Code Status Resuscitation Status DNR/DNI Insurance Coverage/Financial Issues Insurance: [employer] Care Team Visit Care Team Role Provider Type Morelia Meade NP NURSE PRACTITIONER Sarah Weldon MD, [place] Primary Care Provider , [facility] Magdalena Talbert RDN, CDCES Other Providers GAMER Billy Holm RDN Other Providers GAMER Tesfaye Lafleur DO Emergency Provider [facility] STAFF PHYSICIAN Yung Hair Admit Provider [facility] STAFF PHYSICIAN Attending Provider Discharge Potential Discharge Needs: PCP F/U Appt Anticipated Barriers to Discharge: Other (down and back procedure tomorrow, 09/01/24) Patient/Family Education Needs: Review discharge instructions, discuss Ask Me Three Transportation: Private vehicle Plan: Tina will go [place] [facility] [place]; time to be confirmed by nursing. Anticipate Tina will return home once medically cleared. Her will drive her home via private vehicle. She will follow up with her PCP and discharge plan of care. CM will continue to follow. Social Determinants of Health Screening Social Determinants of health last assessed in clinic: 08/31/24 Will the Patient Participate in the Screening?: Yes Do you worry about having a steady place to live?: no Problems where you live: no known problems In the past 12 months, have you had to go without electric, gas, oil or water in your home?: no 1. Within the past 12 months, we worried whether our food would run out before we got money to buy more.: Never true 2. Within the past 12 months, the food we bought just didn't last and we didn't have money to get more.: Never true Has lack of transportation kept you from medical appointments or from doing things needed for daily living?: no Has anyone in your life made you feel unsafe or unsupported?: no How hard is it for you to pay for the very basics like food, housing, medical care, and heating? Would you say it is:: Not hard at all Do you want help finding or keeping work or a job?: I do not need or want help If for any reason you need help with day-to-day activities such as bathing, preparing meals, shopping, managing finances, etc., do you get the help you need?: I could use a little more help How often do you feel lonely or isolated from those around you?: Never Do you speak a language other than Thai at home?: No Does the patient want assistance with any of the above?: No Health Related Social Needs Health related social needs: problems with daily activities (Z73.9) Health related social needs details: has steady housing, not worried about it. PFSH All Active Problems (Updated 08/31/24 @ 12:41 by Morelia Meade NP) Elevated liver enzymes (Acute) On deep vein thrombosis (DVT) prophylaxis (Acute) Diabetes mellitus (Chronic) Nausea & vomiting (Acute) DIMITRY (acute kidney injury) (Acute) Impaired functional mobility, balance, gait, and endurance (Acute) Peripheral neuropathy (Acute) Diabetic amyotrophy (Acute) Peroneal neuropathy (Acute) Heart murmur (Acute) Balance problem (Acute) Foot drop, left (Acute) Advanced care planning/counseling discussion (Acute) Low back pain potentially associated with radiculopathy (Acute) Hip pain (Acute) Diabetes mellitus with neuropathy (Acute) Nail dystrophy (Acute) Memory changes (Acute) Mass, brain (Acute) MRI 04/17/23 3mm small enhancing focus ? mets Adenocarcinoma of pancreas (Acute) bx 03/29 [place] [facility] Hypertension (Chronic) Acute on chronic anemia (Acute) Liver failure, acute (Acute) Hyperbilirubinemia (Acute) Thrombocytopenia (Acute) Transaminitis (Acute) Jaundice (Acute) Anxiety (Chronic) chronic benzodiazipine use 03/27/17 FLOR-7 SCORE=7 07/02/17 FLOR-7 SCORE=13 Diverticulosis of colon without diverticulitis (Chronic) Lichen planus (Chronic) mouth OAB (overactive bladder) (Acute) Medical History Nuclear age-related cataract, left eye Ingrown nail Osteoporosis Insomnia Hematuria Neg work-up 2013. UA not meeting RBC in years since for repeat Right hip pain (03/27/17) Hypercholesterolemia Generalized osteoarthrosis low back pain; xray + DJD Ingrowing toenail (04/14/14) Hematuria unspeficified; asymptomatic; neg W/U Fatigue 06/26/12 Ingrown toenail 04/14/14 Urinary tract infectious disease recurrent Surgical History Nuclear age-related cataract, right eye History of cataract surgery History of bladder repair surgery Status post laparoscopic hysterectomy H/O bladder repair surgery sling S/P laparoscopic hysterectomy 05/07/83 partial, dysmenorrhea Hysterectomy, Laproscopic (~1983) partial; dysmenorrhea Bladder Surgery (~1999) SLING Family History Mother , age 92 Dementia Father , age 78 Cancer Brother Asthma Brother ALS (amyotrophic lateral sclerosis) Brother No problems noted. Maternal Grandfather , age 50 Black lung disease Paternal Grandfather , age 65 Black lung disease Maternal Grandmother , age 80 No problems noted. Paternal Grandmother , age 84 No problems noted. Son No problems noted. Son No problems noted. Social History Smoking/Tobacco Use Status: Former Tobacco Use tobacco type: cigarettes Quit Date: 05/07/97 Tobacco: How many years used: 30 Second Hand Exposure: Yes Smoking risk assessment performed?: Yes Alcohol Intake: current Alcohol Intake frequency: holidays/special occasions only Drug use: Never Substance use type: does not use Adopted: No Household members: spouse Housing: house Number of Children: 2 number of grandchildren: 4 Communication Needs: None Education Level: college Details: A.S. 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 Pets and animals: No Sexually active: No Do you think of yourself as: straight/heterosexual Current gender identity: female What is your relationship status?: How often do you talk on the phone with friends or family?: three or more times per week How often do you get together with friends or relatives?: decline to answer How often do you attend congregational or nondenominational services?: 4 or more times per year Do you belong to any clubs or organized social groups?: yes Panel score (0-1 are the most socially isolated patients): 4 What type of physical activity do you participate in: walking, aerobic, bicycling and swimming Duration: 30-45 minutes/day Frequency: 3-4 times per week Lorraine/Yarsanism: Pentecostalism Special lorraine needs: No Seatbelt use: always Helmet use: Yes Helmet use: always Drive intox or ride w/intox 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
[2024-08-31 18:07] VITALS: BP 138/62; PULSE 61; RESP 20; TEMP 36.4; O2SAT 98
[2024-08-31] MEDS: Glucose Oral Gel 15 GM/37.5 GM TUBE PO (21:25)
[2024-08-31] MEDS: DEXTROSE 5%-0.9% SALINE 1,000 ML 125 ML IV (22:31)
[2024-09-01 03:42] VITALS: BP 165/95; PULSE 62; TEMP 36.5; O2SAT 97
[2024-09-01] MEDS: DEXTROSE 5%-0.9% SALINE 1,000 ML 125 ML IV (06:04)
[2024-09-01 08:03] VITALS: BP 149/67; PULSE 59; RESP 16; TEMP 35.7; O2SAT 96
[2024-09-01] MEDS: Pantoprazole 40 MG VIAL IVP (08:44)
[2024-09-01] MEDS: clonazePAM 0.5 MG TAB PO ×2 (08:45→21:15)
[2024-09-01] MEDS: Celecoxib 100 MG CAP PO ×2 (08:45→21:14)
[2024-09-01] MEDS: Pregabalin 25 MG CAP PO ×2 (08:45→21:14)
[2024-09-01] MEDS: QUEtiapine 50 MG TAB PO ×2 (08:45→21:15)
[2024-09-01] MEDS: Enoxaparin 40 MG/0.4 ML SYR SC (08:45)
[2024-09-01] MEDS: Mirabegron 50 MG TABCR PO (08:45)
[2024-09-01] MEDS: Docusate Sodium 100 MG CAP PO ×2 (08:45→21:15)
[2024-09-01] MEDS: Insulin Aspart 300 UNITS/3 ML PEN SC ×4 (08:53→21:32)
[2024-09-01] MEDS: Insulin Glargine 300 UNITS/3 ML PEN 22 UNITS SC (09:25)
[2024-09-01 10:04] LABS: Hepatitis A Antibody IgM Negative (Negative); Hepatitis B Core Antibody Negative (Negative); Hepatitis B surface Ag Negative (Negative); Hepatitis C Ab w Rflx HCV PCR Negative (Negative)
--- NOTE | 2024-09-01 11:12 | NUR.NOTE ---
Nursing Note: Spoke with [facility] re: endoscopy procedure. NPO after midnight, anticipate her being there tomorrow at 1400, phone # for report: [phone]. Pt will be there 3-3.5 hours, once transportation is set up, please tell Julieta at [phone] who is transferring. Pt will be going to import clerk area 4w. Information shared with charge nurse and community health representative.
--- NOTE | 2024-09-01 11:50 | W.PM.PROGNOT ---
Date of Service Date of service: 09/01/24 Time of Service: 11:50 Assessment and Plan Assessment and plan (1) Elevated liver enzymes: Status: Acute Assessment and plan: in the setting of a history of pancreatic carcinoma with biliary stent in place concerning for obstruction no fever or pain concerning for acute cholangitis. case was discussed with DR Keene. She recommends a down and back ERCP Planned ERCP for 2 PM tomorrow afternoon NPO after midnight tonight. Contact [facility] immediately if the patient does develop fever or pain. does not recommend starting any antibiotics at this time as the patient has no white count or fever. avoid hepatotoxic drugs monitor labs and clinical symptoms closely (2) Adenocarcinoma of pancreas: Status: Acute Assessment and plan: Completed chemotherapy and radiotherapy one year ago As per CT: pancreatic head is heterogeneous most likely correlating with Hx of known pancreatic carcinoma. continue home dose Creon (3) DIMITRY (acute kidney injury): Status: Acute Assessment and plan: resolved with IV hydration monitor (4) Nausea & vomiting: Status: Acute Assessment and plan: Compazine as needed Home dose Haldol for nausea (5) Diabetes mellitus: Status: Chronic Assessment and plan: POC blood sugar AC and at bedtime with SSI coverage On home dose insulin glargine, will hold HS dose as she will be NPO and blood sugars better controlled in hospital 70-138 today Glucose on admission was 409 with last A1c 12.2 (6) Hypertension: Status: Chronic Assessment and plan: blood pressure controlled continue home meds monitor and adjust as needed. (7) On deep vein thrombosis (DVT) prophylaxis: Status: Acute Assessment and plan: On LMWH Discussed with Dr Villanueva Subjective Subjective Patient reports: no new complaints Exam Narrative Exam Narrative: Well-appearing female of stated age in no acute distress head is atraumatic eyes nonicteric noninjected oral mucosa is moist cardiovascular regular rate and rhythm respirations even and unlabored abdomen is round soft nontender she moves extremities equally no peripheral edema neurologic she is awake alert oriented no focal deficits psychiatric appropriate mood and affect Objective Last Vital Signs Temp 35.7 C L 09/01/24 08:03 Pulse 59 L 09/01/24 08:03 Resp 16 09/01/24 08:03 BP 149/67 H 09/01/24 08:03 Pulse Ox 96 09/01/24 08:03 Laboratory Results - last 24 hr 08/30/24 15:00 Hepatitis A IgM Ab Negative Hep Bs Antigen Negative Hep B Core Total Ab Negative Hepatitis C Antibody Negative Time Spent with Patient Time Spent with Patient: 35-49 minutes Time was spent: preparing to see the patient(eg.review tests), obtaining and/or reviewing separately otained hiistory, ordering medications,tests, procedures, indepentently interpreting results and counseling the patient
--- NOTE | 2024-09-01 12:00 | CMPROGNOTE_ITS ---
Date of service: 09/01/24 Time of Service: 12:01 Care Management Progress Note Progress Note Text Progress Note Text: Tina was lying in bed when CM met with her. Tina stated that her ERCP was postponed until tomorrow, which means she is able to eat today. She reported that she had a clear liquid breakfast, and is hoping to have more solid food, possibly later today. Tina stated that her son will be visiting later this week to help out with her and her , who is scheduled to have surgery on . She has a very supportive family. CM will continue to follow. Discharge Potential Discharge Needs: PCP F/U Appt Anticipated Barriers to Discharge: Treatment delay (needs an ERCP, which was postponed until tomorrow by [facility]) Patient/Family Education Needs: Review discharge instructions, discuss Ask Me Three Transportation: Private vehicle Plan: Tina will go to [facility] tomorrow for an ERCP; time to be confirmed by nursing. Anticipate Tina will return home once medically cleared. Her will drive her home via private vehicle. She will follow up with her PCP and discharge plan of care. CM will continue to follow. Social Determinants of Health Screening Social Determinants of health last assessed in clinic: 09/01/24 Will the Patient Participate in the Screening?: Yes Do you worry about having a steady place to live?: no Problems where you live: no known problems In the past 12 months, have you had to go without electric, gas, oil or water in your home?: no 1. Within the past 12 months, we worried whether our food would run out before we got money to buy more.: Never true 2. Within the past 12 months, the food we bought just didn't last and we didn't have money to get more.: Never true Has lack of transportation kept you from medical appointments or from doing things needed for daily living?: no Has anyone in your life made you feel unsafe or unsupported?: no How hard is it for you to pay for the very basics like food, housing, medical care, and heating? Would you say it is:: Not hard at all Do you want help finding or keeping work or a job?: I do not need or want help If for any reason you need help with day-to-day activities such as bathing, preparing meals, shopping, managing finances, etc., do you get the help you need?: I could use a little more help How often do you feel lonely or isolated from those around you?: Never Do you speak a language other than Citizen [place] at home?: No Does the patient want assistance with any of the above?: No Health Related Social Needs Health related social needs: problems with daily activities (Z73.9) Health related social needs details: has steady housing, not worried about it.
[2024-09-01] MEDS: Creon, Lipase 24,000 CAPCR 1 CAP PO ×2 (14:17→21:14)
--- NOTE | 2024-09-01 15:22 | TELEFU_ITS ---
Date of service: 09/01/24 Time of Service: 15:22 Nutrition Note NOTE: Received consult request regarding diabetes mgt/education. Pt is 79yo female with a long hx of medical concerns. current pancreatic cancer - supposed to down and back for ERCP in [facility] tomorrow - NPO at midnight tonight. diet advanced from clears to fat restricedd and CHO consistent. Fair-good appetite/intake reported. Electrolyte labs wnl. A lot of glucose variability noted - 71 fasting this morning but has been as high as 409 on the . Fingersticks more consistently under 200 at meals. Ordered for Creon, sliding scale novolog at meals and 22:00 and 22u lantus. Lives at home with and has caregiver come in with help in all areas. Glucose profile will be influenced by pancreatic and liver dysfunction related to cancer and hx of liver concerns - insulin management will be necessary to improve glucose control. Recommend continued basal insulin and mealtime corrections with titration as glucose labs dictate. Can consider mealtime carb coverage if glucose consistently 180 or greater at meal times- can start with 1unit insulin aspart per 30g CHO and titrate from there depending on sensitivity. Will monitor intake, weight, nutrition related labs. Time Spent in Nutritional Counseling and Treatment: 10 min
[2024-09-01 15:47] VITALS: BP 144/70; PULSE 60; RESP 16; TEMP 35.9; O2SAT 98
--- NOTE | 2024-09-01 16:48 | PHACLINREV_ITS ---
Pharmacy Admission Review Admission Clinical Review Admission Pharmacy Review: Elevated liver enzymes (Acute) On deep vein thrombosis (DVT) prophylaxis (Acute) Nausea & vomiting (Acute) DIMITRY (acute kidney injury) (Acute) Adenocarcinoma of pancreas (Acute) Hyperbilirubinemia (Acute) Transaminitis (Acute) ibuprofen Adverse Reaction (Mild, Verified 08/30/24 14:32) Stomach cramps Resuscitation Status DNR/DNI Height 5 ft 3 in Weight 61.689 kg Pharmacy Admission Review Renal Dosing Renal Dosing: BUN 21 mg/dL (7-18) H 08/31/24 07:00 Creatinine 0.7 mg/dL (0.55-1.02) 08/31/24 07:00 List of meds needing interventions: crcl = 43, current meds are OK Anticoagulation Anticoagulation: Hgb 9.8 g/dL (11.2-15.7) L 08/31/24 07:00 Hct 28.7 % (36.0-46.0) L 08/31/24 07:00 Plt Count 202 10^3/uL (130-400) 08/31/24 07:00 INR 1.0 (0.9-1.1) 08/30/24 15:00 Creatinine 0.7 mg/dL (0.55-1.02) 08/31/24 07:00 DVT Prophylaxis: Reviewed Medications: Enoxaparin (40 mg daily) Therapeutic Anticoagulation: N/A Opiate Usage Evaluate Pain Scale/Pains Meds: Reviewed (not on opiates) Relevant Labs Relevant Labs: Sodium 139 mmol/L (136-145) 08/31/24 07:00 Potassium 3.7 mmol/L (3.5-5.1) 08/31/24 07:00 Chloride 104 mmol/L (98-107) 08/31/24 07:00 Electrolytes, C-Reactive P, ESR: Reviewed (AST/ALT = 105/170, Alk phos = 1368) DM Control DM Control: Reviewed (*a1c = 12.2% 08/14/24*) Insulin Dosing, Diabetic Medication: insulin glargine 22 units daily + aspart sliding scale with meals & HS Cardiac Review BP, HR, EF%: Reviewed (some hypertension, not on cardiac meds) QTc Review QTc: Reviewed (no EKG this visit (last QTc = 420 06/20/23)) IV to PO Switch IV Medications: Reviewed Home Meds Home Med List reviewed: Reviewed (pt brought in their own methenamine hippurate 1 gram tabs, pills identified and sent to [facility] for use) Relevent Home Meds Not ordered & why?: estradiol cream - non-formulary, not bro ught in Current Meds Current Medication Order Review: Reviewed
[2024-09-01 19:47] VITALS: BP 167/90; PULSE 75; RESP 15; TEMP 36; O2SAT 97
[2024-09-02] MEDS: Normal Saline Flush 10 ML SYR IVP ×5 (00:26→23:37)
[2024-09-02] MEDS: Prochlorperazine 10 MG/2 ML VIAL IVP ×3 (00:26→23:36)
[2024-09-02 06:26] LABS: Abs Immature Grans 0.02 10^3/uL (0.0-0.06); Absolute Basophil Count 0.02 10^3/uL (0.0-0.2); Absolute Eosinophil Count 0.13 10^3/uL (0.0-0.7); Absolute Lymphocyte Count 0.98 10^3/uL (1.2-3.4); Absolute Monocyte Count 0.39 10^3/uL (0.1-0.8); Absolute Neutrophil Count 3.83 10^3/uL (1.2-6.7); Basophils % 0.4 %; Eosinophils % 2.4 %; HGB 10.3 g/dL (11.2-15.7); Immature Grans % 0.4 %; Lymphocytes % 18.2 %; MCH 27.7 pg (27.0-33.0); MCHC 34.3 % (32.0-36.0); MCV 81 fL (80-95); MPV 11.8 fL (8.0-11.0); Monocytes % 7.3 %; Neutrophils % 71.3 %; Platelet Count 231 10^3/uL (130-400); RBC 3.72 10^6/uL (3.93-5.22); RDW 16.2 % (11.7-14.6); RDW-SD 47.8 fL; WBC 5.37 10^3/uL (4.4-10.8)
[2024-09-02 07:11] LABS: ALT 132 U/L (14-59); AST 91 U/L (15-37); Albumin 2.1 g/dL (3.4-5.0); Anion Gap 7.8 mmol/L (3-11); BUN 10 mg/dL (7-18); CO2 28.2 mmol/L (21.0-32.0); CREATININE 0.7 mg/dL (0.55-1.02); Calcium 8.6 mg/dL (8.5-10.1); Chloride 105 mmol/L (98-107); Estimated GFR 87.37 (mL/min/1.73m2); Glucose 168 mg/dL (74-106); Potassium 3.4 mmol/L (3.5-5.1); Sodium 141 mmol/L (136-145); Total Protein 6.7 g/dL (6.4-8.2)
[2024-09-02 07:12] LABS: Alkaline Phosphatase 1261 U/L (46-116)
[2024-09-02 07:35] VITALS: BP 162/63; PULSE 65; RESP 18; TEMP 36.5; O2SAT 95
[2024-09-02] MEDS: Pantoprazole 40 MG VIAL IVP (08:36)
[2024-09-02] MEDS: Enoxaparin 40 MG/0.4 ML SYR SC (09:19)
[2024-09-02] MEDS: Mirabegron 50 MG TABCR PO (09:54)
[2024-09-02] MEDS: QUEtiapine 50 MG TAB PO ×2 (10:00→20:28)
[2024-09-02] MEDS: Pregabalin 25 MG CAP PO ×2 (10:01→20:27)
[2024-09-02] MEDS: clonazePAM 0.5 MG TAB PO ×2 (10:02→20:28)
--- NOTE | 2024-09-02 11:34 | PDOC.CMPRO ---
Date of service: 09/02/24 Time of Service: 11:34 Care Management Progress Note Progress Note Text Progress Note Text: Tina was awake and lying in bed when CM met with her. She is planning on going to [facility] [place] and [place] ERC today at 1230. Tina denies questions or concerns at this time. Discharge planning continues, pt may benefit from a PT consult. CM will follow. Discharge Potential Discharge Needs: PCP F/U Appt Anticipated Barriers to Discharge: Other (down and back procedure today, 09/01/24) Patient/Family Education Needs: Review discharge instructions, discuss Ask Me Three Transportation: Private vehicle Plan: Tina requires further medical work up and went to [facility] [place] a down and back ERCP today. Anticipate, Tina will return home once medically cleared. ? PT recommendations. Her will drive her home via private vehicle. She will follow up with her PCP and discharge plan of care. CM will continue to follow. Social Determinants of Health Screening Social Determinants of health last assessed in clinic: 09/02/24 Will the Patient Participate in the Screening?: Yes Do you worry about having a steady place to live?: no Problems where you live: no known problems In the past 12 months, have you had to go without electric, gas, oil or water in your home?: no 1. Within the past 12 months, we worried whether our food would run out before we got money to buy more.: Never true 2. Within the past 12 months, the food we bought just didn't last and we didn't have money to get more.: Never true Has lack of transportation kept you from medical appointments or from doing things needed for daily living?: no Has anyone in your life made you feel unsafe or unsupported?: no How hard is it for you to pay for the very basics like food, housing, medical care, and heating? Would you say it is:: Not hard at all Do you want help finding or keeping work or a job?: I do not need or want help If for any reason you need help with day-to-day activities such as bathing, preparing meals, shopping, managing finances, etc., do you get the help you need?: I could use a little more help How often do you feel lonely or isolated from those around you?: Never Do you speak a language other than Albanian at home?: No Does the patient want assistance with any of the above?: No Health Related Social Needs Health related social needs: problems with daily activities (Z73.9) Health related social needs details: has steady housing, not worried about it.
[2024-09-02 12:16] VITALS: BP 150/83; PULSE 78; RESP 16; TEMP 37.6; O2SAT 97
--- NOTE | 2024-09-02 15:30 | PGE_ITS ---
Date of Service Date of service: 09/02/24 Time of Service: 15:30 Assessment and Plan Assessment and plan (1) Elevated liver enzymes: Status: Acute Assessment and plan: in the setting of a history of pancreatic carcinoma with biliary stent in place concerning for obstruction no fever or pain concerning for acute cholangitis. case was discussed with DR Keene. Plan for down and back ERCP today Contact [facility] immediately if the patient does develop fever or pain. does not recommend starting any antibiotics at this time as the patient has no white count or fever. avoid hepatotoxic drugs monitor labs and clinical symptoms closely (2) Adenocarcinoma of pancreas: Status: Acute Assessment and plan: Completed chemotherapy and radiotherapy one year ago As per CT: pancreatic head is heterogeneous most likely correlating with Hx of known pancreatic carcinoma. continue home dose Creon (3) DIMITRY (acute kidney injury): Status: Acute Assessment and plan: resolved with IV hydration monitor (4) Nausea & vomiting: Status: Acute Assessment and plan: vomited overnight, continue Compazine as needed Home dose Haldol for nausea (5) Diabetes mellitus: Status: Chronic Assessment and plan: POC blood sugar AC and at bedtime with SSI coverage On home dose insulin glargine, will hold HS dose as she will be NPO and blood sugars better controlled in hospital 70-138 today Glucose on admission was 409 with last A1c 12.2 (6) Hypertension: Status: Chronic Assessment and plan: blood pressure controlled continue home meds monitor and adjust as needed. (7) On deep vein thrombosis (DVT) prophylaxis: Status: Acute Assessment and plan: On LMWH Discussed with Dr Villanueva Subjective Subjective Patient reports: vomiting Interval history since last seen: vomited approx 800 cc overnight, received prochlorperazine with resolution of the symptoms. no fever, hemodynamically stable. awaiting transport to [facility] for ERCP Exam Narrative Exam Narrative: Well-appearing female of stated age in no acute distress head is atraumatic eyes nonicteric noninjected oral mucosa is moist cardiovascular regular rate and rhythm respirations even and unlabored abdomen is round soft nontender she moves extremities equally no peripheral edema neurologic she is awake alert oriented no focal deficits psychiatric appropriate mood and affect Objective Last Vital Signs Temp 37.6 C H 09/02/24 12:16 Pulse 78 09/02/24 12:16 Resp 16 09/02/24 12:16 BP 150/83 H 09/02/24 12:16 Pulse Ox 97 09/02/24 12:16 Laboratory Results - last 24 hr 09/02/24 06:02 WBC 5.37 RBC 3.72 L Hgb 10.3 L Hct 30.0 L MCV 81 MCH 27.7 MCHC 34.3 RDW 16.2 H Plt Count 231 MPV 11.8 H Immature Gran % 0.4 Neutrophils % 71.3 Lymphocytes % 18.2 Monocytes % 7.3 Eosinophils % 2.4 Basophils % 0.4 Nucleated RBC % 0.0 Absolute Neutrophils 3.83 Absolute Lymphocytes 0.98 L Absolute Monocytes 0.39 Absolute Eosinophils 0.13 Absolute Basophils 0.02 Sodium 141 Potassium 3.4 L Chloride 105 Carbon Dioxide 28.2 Anion Gap 7.8 BUN 10 Creatinine 0.7 Est GFR (CKD-EPI 2020) 87.37 Glucose 168 H Calcium 8.6 Total Bilirubin 5.0 H AST 91 H ALT 132 H Alkaline Phosphatase 1261 H Total Protein 6.7 Albumin 2.1 L Time Spent with Patient Time Spent with Patient: 35-49 minutes Time was spent: preparing to see the patient(eg.review tests), obtaining and/or reviewing separately otained hiistory, ordering medications,tests, procedures, indepentently interpreting results, counseling the patient and care coordination
[2024-09-02 20:20] VITALS: BP 160/72; PULSE 78; RESP 16; TEMP 36.1; O2SAT 95
[2024-09-02] MEDS: Celecoxib 100 MG CAP PO (20:27)
[2024-09-02] MEDS: Creon, Lipase 24,000 CAPCR 1 CAP PO (20:27)
[2024-09-02] MEDS: Docusate Sodium 100 MG CAP PO (20:27)
[2024-09-02] MEDS: Insulin Aspart 300 UNITS/3 ML PEN SC (21:57)
[2024-09-03] MEDS: Pantoprazole 40 MG VIAL IVP (06:48)
[2024-09-03] MEDS: Prochlorperazine 10 MG/2 ML VIAL IVP (07:15)
[2024-09-03 07:27] VITALS: BP 144/84; PULSE 89; RESP 18; TEMP 36.3; O2SAT 95
[2024-09-03 07:41] LABS: ALT 115 U/L (14-59); AST 68 U/L (15-37); Albumin 2.2 g/dL (3.4-5.0); Anion Gap 7.5 mmol/L (3-11); BUN 17 mg/dL (7-18); Bilirubin, Total 3.4 mg/dL (0.2-1.0); CO2 27.5 mmol/L (21.0-32.0); CREATININE 0.9 mg/dL (0.55-1.02); Calcium 8.9 mg/dL (8.5-10.1); Chloride 103 mmol/L (98-107); Estimated GFR 64.63 (mL/min/1.73m2); Glucose 324 mg/dL (74-106); Potassium 3.7 mmol/L (3.5-5.1); Sodium 138 mmol/L (136-145); Total Protein 7.1 g/dL (6.4-8.2)
[2024-09-03 07:46] LABS: Alkaline Phosphatase 1228 U/L (46-116)
[2024-09-03] MEDS: Insulin Aspart 300 UNITS/3 ML PEN SC ×2 (09:25→11:57)
[2024-09-03] MEDS: Insulin Glargine 300 UNITS/3 ML PEN 22 UNITS SC (09:25)
[2024-09-03] MEDS: Enoxaparin 40 MG/0.4 ML SYR SC (09:27)
[2024-09-03] MEDS: Celecoxib 100 MG CAP PO (09:32)
[2024-09-03] MEDS: Creon, Lipase 24,000 CAPCR 1 CAP PO (09:32)
[2024-09-03] MEDS: Mirabegron 50 MG TABCR PO (09:33)
[2024-09-03] MEDS: QUEtiapine 50 MG TAB PO (09:33)
[2024-09-03] MEDS: Pregabalin 25 MG CAP PO (09:33)
[2024-09-03] MEDS: clonazePAM 0.5 MG TAB PO (09:33)
--- NOTE | 2024-09-03 09:41 | PDOC.CMPRO ---
Date of service: 09/03/24 Time of Service: 09:41 Care Management Progress Note Progress Note Text Progress Note Text: Tina went to [facility] yesterday for an ERCP and was found to have a Duodenal obstruction which required correction. Her labs and clinical symptoms are being closely monitored and she will likely be cleared for discharge if her LFTs indicate the obstruction is resolving. No new services are indicated at this time. CM will follow. Discharge Potential Discharge Needs: PCP F/U Appt Anticipated Barriers to Discharge: None Identified Patient/Family Education Needs: Review discharge instructions, discuss Ask Me Three Transportation: Private vehicle Plan: Anticipate, Tina will return home with new services if indicated when medically ready for discharge. Her will drive her home via private vehicle. Tina will follow up with her PCP and discharge plan of care. CM will continue to follow. Social Determinants of Health Screening Social Determinants of health last assessed in clinic: 09/03/24 Will the Patient Participate in the Screening?: Yes Do you worry about having a steady place to live?: no Problems where you live: no known problems In the past 12 months, have you had to go without electric, gas, oil or water in your home?: no 1. Within the past 12 months, we worried whether our food would run out before we got money to buy more.: Never true 2. Within the past 12 months, the food we bought just didn't last and we didn't have money to get more.: Never true Has lack of transportation kept you from medical appointments or from doing things needed for daily living?: no Has anyone in your life made you feel unsafe or unsupported?: no How hard is it for you to pay for the very basics like food, housing, medical care, and heating? Would you say it is:: Not hard at all Do you want help finding or keeping work or a job?: I do not need or want help If for any reason you need help with day-to-day activities such as bathing, preparing meals, shopping, managing finances, etc., do you get the help you need?: I could use a little more help How often do you feel lonely or isolated from those around you?: Never Do you speak a language other than Greenlandic at home?: No Does the patient want assistance with any of the above?: No Health Related Social Needs Health related social needs: problems with daily activities (Z73.9) Health related social needs details: has steady housing, not worried about it.
--- NOTE | 2024-09-03 11:30 | CMDISCH_ITS ---
Date of service: 09/03/24 Time of Service: 11:30 LACE Index Scoring Tool Questions: Length of Stay (in days): 4 - 6 Was the patient admitted via the E.D.?: Yes Comorbidities: Diabetes w/o Complication E.D. Visits: 1 Answers: Total Score: 9 Risk of Readmission: Low Risk Care Management Discharge Plan Reason for Hospitalization: Duodenal obstruction Discharge Plan: Tina is being discharged home via private vehicle with her hus band. She will follow up with community providers and discharge plan of care. No new services are ordered prior to discharge. Patient/Family Education Needs: Review discharge instructions, discuss Ask Me Three SDOH Health Related Social Needs: Health related social needs problems with daily activi ties (Z73.9) Health related social needs details has steady housing , not worried about it. Health related social needs details: has steady housing, not worried about it.
[2024-09-03] MEDS: Normal Saline 500 ML IV (12:14)
[2024-09-03] MEDS: Normal Saline Flush 10 ML SYR IVP (12:14)
--- NOTE | 2024-09-03 12:19 | DSE_ITS ---
Date of service: 09/03/24 Time of Service: 12:20 DS: Diagnosis Discharge Diagnosis (1) Elevated liver enzymes: Status: Acute (2) Adenocarcinoma of pancreas: Status: Acute (3) DIMITRY (acute kidney injury): Status: Acute (4) Nausea & vomiting: Status: Acute (5) Diabetes mellitus: Status: Chronic (6) Hypertension: Status: Chronic Discharge Plan Disposition Patient Disposition: Home Condition: Improving Discharge Details Reason For Visit: Pancreatic Stent Occlusion, Vomiting, Hiperbilirub Admit Date/Time: 08/30/24 18:27 Admit Provider: Yung Hair Attending Provider: Yung Hair Primary Care Provider: Sarah Weldon [facility] Course Hospital Course: This is a 89-year-old female patient with past medical history significant for adenocarcinoma of the pancreas with biliary stent presented to the emergency department with jaundice nausea and vomiting. Her case was discussed with GI at [facility] and plan was for a down and back ERCP. She had no evidence of acute cholangitis so no antibiotic recommendations. Due to lack of capacity she remained here for 2 days prior to being transported down for her procedure. It was noted that she did require a duodenal stent and after that was placed there was no evidence of biliary stent obstruction. She was sent back to [facility]. She did experience some nausea which is common. She was tolerating fluids and diet advancing. Hemodynamically she remained stable. Her total bili Vincent did improved to 3.4. The rest of her liver enzymes remained stable. Hemodynamically she was stable and afebrile. She felt she was ready for discharge to home. There have been no medication changes she should follow- up with her outpatient team she was advised to return sooner for new or worsening symptoms Discharge discussed with Home Meds and New Rx's Prescriptions: Continued (DME) FreeStyle Test Strip See Rx Instructions .Route Qty: 300 4RF Rx Instructions: 3 times daily E11.9 haloperidol 0.5 mg tablet 0.5 mg PO BID PRN (Reason: nausea and vomiting) Qty: 30 0RF fluticasone propionate 50 mcg/actuation spray,suspension 2 spray intranasal DAILY Qty: 16 2RF Rx Instructions: administer into each nostril estradiol 0.01 % (0.1 mg/gram) cream 1 g vaginal DAILY Qty: 42.5 5RF Rx Instructions: do daily until seen by Dr Smith again methenamine hippurate 1 gram tablet 1 g PO BID Qty: 180 3RF clonazepam 0.5 mg tablet 0.5 mg PO BID Qty: 180 3RF insulin glargine [Lantus Solostar U-100 Insulin] 100 unit/mL (3 mL) insulin pen See Rx Instructions subcut BID Qty: 45 7RF Rx Instructions: 22 U am and 15U pm subcutaneously twice a day; polyethylene glycol 3350 [Miralax] 17 gram/dose powder 17 g PO BID PRN (Reason: laxative effect) Qty: 238 4RF pregabalin 25 mg capsule 25 mg PO BID Qty: 180 3RF (DME) pen needle, diabetic [BD Ultra-Fine Mini Pen Needle] 31 gauge x 3/16 needle See Rx Instructions .ROUTE .MEDSUPPLY Qty: 90 4RF Rx Instructions: Daily E11.9 (DME) blood-glucose meter [FreeStyle Lite Meter] Kit See Rx Instructions .Route Qty: 1 0RF Rx Instructions: 3 times daily testing E11.9 (DME) lancets [FreeStyle Lancets] 28 gauge misc See Rx Instructions .ROUTE .MEDSUPPLY Qty: 300 5RF Rx Instructions: 3 times daily testing E11.9 Creon 24,000-76,000 -120,000 unit capsule,delayed release(DR/EC) 1 cap PO TID Qty: 270 4RF Rx Instructions: administer with meals and/or snacks Ordered by Opal Ontiveros machine stripper cutter at [facility] per Tina. 05/29/23. -hb triamcinolone acetonide 0.1 % cream 1 applic TP DAILY PRN (Reason: irritation) Qty: 80 0RF mirabegron [Myrbetriq] 50 mg tablet extended release 24 hr 50 mg PO DAILY Qty: 90 4RF quetiapine 50 mg tablet 50 mg PO BID Qty: 180 5RF (DME) pen needle, diabetic [BD Ultra-Fine Mini Pen Needle] 31 gauge x 3/16 needle See Rx Instructions .ROUTE .MEDSUPPLY Qty: 200 4RF Rx Instructions: use one BID E11.9 celecoxib 100 mg capsule 100 mg PO BID Qty: 180 2RF Discharge Instructions Instructions: Nausea and vomiting in adults Stand Alone Forms: Nursing Discharge Form Referrals: Sarah Weldon [place], [place] [Primary Care Provider] - Activity:: Activity as Tolerated Equipment/Supplies:: No Equipment Needed Diet:: As Tolerated Discharge Orders Discharge Orders: Discharge Order (Routine); Ordered 09/03/24 Ordered By: Morelia Meade Discharge Data Discharge Date/Time-TO BE ENTERED AT DEPARTURE: 09/03/24 14:41 DS: Summary Time Spent with Patient providing and/or coordinating discharge services: Greater than 30 minutes Status at Discharge Functional status at discharge: independent ambulation Overall status at discharge: patient is not back to baseline Mental Status: mental status grossly normal Speech and Movement: speech and movement normal Mood: congruent mood Affect: normal affect Quality:SDOH Health Related Social Needs: Health related social needs problems with daily activi ties (Z73.9) Health related social needs details has steady housing , not worried about it. Health related social needs details: has steady housing, not worried about it. Exam Narrative Exam Narrative: Chronically ill appearing female of stated age in no acute distress head is atraumatic eyes icteric noninjected oral mucosa is dry cardiovascular regular rate and rhythm respirations even and unlabored abdomen is round soft nontender she moves extremities equally no peripheral edema neurologic she is awake alert oriented no focal deficits psychiatric appropriate mood and flat affect skin jaundice. Psych Mental Status: mental status grossly normal Speech and Movement: speech and movement normal Mood: congruent mood Affect: normal affect DS: Data Vitals/I&O Vitals and I&O: Vital Signs Temperature 36.3 C L 09/03/24 07:27 Temperature Source Temporal Artery Scan 09/03/24 07:27 Pulse 89 09/03/24 07:27 Pulse 78 08/30/24 19:00 Respiratory Rate 18 09/03/24 07:27 Respiratory Effort Normal, Non-Labored 08/30/24 21:03 Respiratory Depth Normal 08/30/24 21:03 Respiratory Pattern Normal 08/30/24 21:03 Blood Pressure 144/84 H 09/03/24 07:27 Blood Pressure Mean 104 09/03/24 07:27 Pulse Oximetry 95 09/03/24 07:27 Oxygen Delivery Method Room Air 09/03/24 07:27 Oxygen Flow Rate 0 09/03/24 07:27 Pain Level 0 09/02/24 20:20 Comment Nausea at this time 09/03/24 07:27 Intake & Output 09/02/24 09/03/24 09/03/24 23:59 11:59 23:59 Intake Total 530 / 530 Output Total 400 / 1400 375 / 375 Balance 130 / -870 -375 / -375 Intake: IV Oral 520 / 520 Output: Urine 400 / 600 375 / 375 Other: Urine Color Light Jodie Dark Jodie Urine Appearance Clear Clear Urine Odor Normal Strong Stool Size Large Stool Characteristics Soft Formed Data Completed and Pending Labs on day of discharge: Labs from last 24 hours 09/03/24 07:00: Sodium 138, Potassium 3.7, Chloride 103, Carbon Dioxide 27.5, Anion Gap 7.5, BUN 17, Creatinine 0.9, Est GFR (CKD-EPI 2020) 64.63, Glucose 324 H, Calcium 8.9, Total Bilirubin 3.4 H, AST 68 H, ALT 115 H, Alkaline Phosphatase 1228 H, Total Protein 7.1, Albumin 2.2 L PFSH All Active Problems (Updated 08/31/24 @ 12:41 by Morelia Meade NP) Elevated liver enzymes (Acute) On deep vein thrombosis (DVT) prophylaxis (Acute) Diabetes mellitus (Chronic) Nausea & vomiting (Acute) DIMITRY (acute kidney injury) (Acute) Impaired functional mobility, balance, gait, and endurance (Acute) Peripheral neuropathy (Acute) Diabetic amyotrophy (Acute) Peroneal neuropathy (Acute) Heart murmur (Acute) Balance problem (Acute) Foot drop, left (Acute) Advanced care planning/counseling discussion (Acute) Low back pain potentially associated with radiculopathy (Acute) Hip pain (Acute) Diabetes mellitus with neuropathy (Acute) Nail dystrophy (Acute) Memory changes (Acute) Mass, brain (Acute) MRI 04/17/23 3mm small enhancing focus ? mets Adenocarcinoma of pancreas (Acute) bx 03/29 [place] [facility] Hypertension (Chronic) Acute on chronic anemia (Acute) Liver failure, acute (Acute) Hyperbilirubinemia (Acute) Thrombocytopenia (Acute) Transaminitis (Acute) Jaundice (Acute) Anxiety (Chronic) chronic benzodiazipine use 03/27/17 FLOR-7 SCORE=7 07/02/17 FLOR-7 SCORE=13 Diverticulosis of colon without diverticulitis (Chronic) Lichen planus (Chronic) mouth OAB (overactive bladder) (Acute) Medical History Nuclear age-related cataract, left eye Ingrown nail Osteoporosis Insomnia Hematuria Neg work-up 2013. UA not meeting RBC in years since for repeat Right hip pain (03/27/17) Hypercholesterolemia Generalized osteoarthrosis low back pain; xray + DJD Ingrowing toenail (04/14/14) Hematuria unspeficified; asymptomatic; neg W/U Fatigue 06/26/12 Ingrown toenail 04/14/14 Urinary tract infectious disease recurrent Surgical History Nuclear age-related cataract, right eye History of cataract surgery History of bladder repair surgery Status post laparoscopic hysterectomy H/O bladder repair surgery sling S/P laparoscopic hysterectomy 05/07/83 partial, dysmenorrhea Hysterectomy, Laproscopic (~1983) partial; dysmenorrhea Bladder Surgery (~1999) SLING Family History Mother , age 92 Dementia Father , age 78 Cancer Brother Asthma Brother ALS (amyotrophic lateral sclerosis) Brother No problems noted. Maternal Grandfather , age 50 Black lung disease Paternal Grandfather , age 65 Black lung disease Maternal Grandmother , age 80 No problems noted. Paternal Grandmother , age 84 No problems noted. Son No problems noted. Son No problems noted. Social History Smoking/Tobacco Use Status: Former Tobacco Use tobacco type: cigarettes Quit Date: 05/07/97 Tobacco: How many years used: 30 Second Hand Exposure: Yes Smoking risk assessment performed?: Yes Alcohol Intake: current Alcohol Intake frequency: holidays/special occasions only Drug use: Never Substance use type: does not use Adopted: No Household members: spouse Housing: house Number of Children: 2 number of grandchildren: 4 Communication Needs: None Education Level: college Details: A.S. 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 Pets and animals: No Sexually active: No Do you think of yourself as: straight/heterosexual Current gender identity: female What is your relationship status?: How often do you talk on the phone with friends or family?: three or more times per week How often do you get together with friends or relatives?: decline to answer How often do you attend christianity or denominational services?: 4 or more times per year Do you belong to any clubs or organized social groups?: yes Panel score (0-1 are the most socially isolated patients): 4 What type of physical activity do you participate in: walking, aerobic, bicycling and swimming Duration: 30-45 minutes/day Frequency: 3-4 times per week Lorraine/Bahai: Mormonism Special lorraine needs: No Seatbelt use: always Helmet use: Yes Helmet use: always Drive intox or ride w/intox school bus driver/custodian: No Firearms in home: Yes Do you feel safe at home: Yes Do you feel safe in your relationship?: Yes Victim of physical abuse: No Victim of emotional abuse: No Victim of sexual abuse: No Would you like helpful sources: No Time Spent with Patient Time Spent with Patient: 45-69 minutes Time was spent: preparing to see the patient(eg.review tests), obtaining and/or reviewing separately otained hiistory, ordering medications,tests, procedures and indepentently interpreting results
== END 2024-09-03 14:41 | disposition home or self-care (01) ==
LOC: ER 19:08 → MS 08-31 07:23
PROVIDERS: Family Medicine; Nurse Practitioner Acute Care; Admitting Provider Family Medicine; Emergency Provider Student in an Organized Health Care Education/Training Program; PCP Family Medicine; Responsible Provider Nurse Practitioner Acute Care; Visit Provider Family Medicine
DX: T85.590A Other mechanical complication of bile duct prosthesis, initial encounter (principal); K83.1 Obstruction of bile duct; N17.9 Acute kidney failure, unspecified; E80.6 Other disorders of bilirubin metabolism; R11.2 Nausea with vomiting, unspecified; R74.01 Elevation of levels of liver transaminase levels; I10 Essential (primary) hypertension; Z79.899 Other long term (current) drug therapy; C25.9 Malignant neoplasm of pancreas, unspecified; R74.8 Abnormal levels of other serum enzymes; Z79.4 Long term (current) use of insulin; E78.5 Hyperlipidemia, unspecified; E11.42 Type 2 diabetes mellitus with diabetic polyneuropathy; E11.44 Type 2 diabetes mellitus with diabetic amyotrophy; G93.89 Other specified disorders of brain; D64.9 Anemia, unspecified; N32.81 Overactive bladder; K57.30 Diverticulosis of large intestine without perforation or abscess without bleeding; F41.9 Anxiety disorder, unspecified
CPT/HCPCS: 00123; 36415; 80053; 83690; 86704; 86709; 86803; 87340; 96372; 99285; J1650; 74177; 80320; 81003; 81015; 82140; 82248; 85025; 85610; 85730; 99223; 99233; 99239; A0425; A0428; G0378; J0780; J1815; J2470; J3490; J7042

== ENCOUNTER 2024-10-02 03:00 | Outpatient (RCR) | payer OTHER, SELFPAY ==
[2024-10-02] MEDS: Normal Saline Flush 10 ML SYR IVP (13:11)
[2024-10-02 13:29] LABS: Abs Immature Grans 0.01 10^3/uL (0.0-0.06); Absolute Basophil Count 0.02 10^3/uL (0.0-0.2); Absolute Eosinophil Count 0.26 10^3/uL (0.0-0.7); Absolute Lymphocyte Count 1.16 10^3/uL (1.2-3.4); Absolute Monocyte Count 0.29 10^3/uL (0.1-0.8); Absolute Neutrophil Count 3.34 10^3/uL (1.2-6.7); Basophils % 0.4 %; Eosinophils % 5.1 %; HCT 32.9 % (36.0-46.0); HGB 10.7 g/dL (11.2-15.7); Immature Grans % 0.2 %; Lymphocytes % 22.8 %; MCH 27.9 pg (27.0-33.0); MCHC 32.5 % (32.0-36.0); MCV 86 fL (80-95); MPV 11.6 fL (8.0-11.0); Monocytes % 5.7 %; Neutrophils % 65.8 %; Platelet Count 278 10^3/uL (130-400); RBC 3.84 10^6/uL (3.93-5.22); RDW 14.6 % (11.7-14.6); RDW-SD 45.3 fL; WBC 5.08 10^3/uL (4.4-10.8)
[2024-10-02 14:05] LABS: ALT 117 U/L (14-59); AST 53 U/L (15-37); Albumin 2.4 g/dL (3.4-5.0); Anion Gap 4.2 mmol/L (3-11); BUN 22 mg/dL (7-18); Bilirubin, Total 0.6 mg/dL (0.2-1.0); CO2 31.8 mmol/L (21.0-32.0); CREATININE 0.8 mg/dL (0.55-1.02); Chloride 99 mmol/L (98-107); Estimated GFR 74.44 (mL/min/1.73m2); Glucose 484 mg/dL (74-106); Potassium 4.2 mmol/L (3.5-5.1); Sodium 135 mmol/L (136-145)
[2024-10-02 14:07] LABS: Alkaline Phosphatase 1779 U/L (46-116)
[2024-10-03 11:54] LABS: CA 19-9 2326 U/mL (<35)
== END 2024-10-04 23:59 | disposition home or self-care (01) ==
LOC: INF 03:00
PROVIDERS: PCP Family Medicine; Visit Provider Internal Medicine Hematology & Oncology
DX: C25.0 Malignant neoplasm of head of pancreas (principal); Z45.2 Encounter for adjustment and management of vascular access device
CPT/HCPCS: 36591; 80053; 85025; 86301

== ENCOUNTER 2024-10-18 13:27 | Emergency (ER) | payer OTHER, SELFPAY ==
[2024-10-18] VITALS (9 sets, daily range): BP systolic 120–130; BP diastolic 61–75; PULSE 63–71; RESP 12–16; TEMP 36.6; O2SAT 94–99
--- NOTE | 2024-10-18 13:29 | ED.GENADUL_ITS ---
Discharge Plan Disposition Patient Disposition: Home Discharge Details Clinical Impression: Adenocarcinoma of pancreas, Alkaline phosphatase elevation Primary Care Provider: Sarah Weldon ED Provider: Yung Andrew Home Meds and New Rx's Prescriptions: Continued (DME) FreeStyle Test Strip See Rx Instructions .Route Qty: 300 4RF Rx Instructions: 3 times daily E11.9 haloperidol 0.5 mg tablet 0.5 mg PO BID PRN (Reason: nausea and vomiting) Qty: 30 0RF fluticasone propionate 50 mcg/actuation spray,suspension 2 spray intranasal DAILY Qty: 16 2RF Rx Instructions: administer into each nostril estradiol 0.01 % (0.1 mg/gram) cream 1 g vaginal DAILY Qty: 42.5 5RF Rx Instructions: do daily until seen by Dr Smith again methenamine hippurate 1 gram tablet 1 g PO BID Qty: 180 3RF insulin glargine [Lantus Solostar U-100 Insulin] 100 unit/mL (3 mL) insulin pen See Rx Instructions subcut BID Qty: 45 7RF Rx Instructions: 22 U am and 15U pm subcutaneously twice a day; polyethylene glycol 3350 [Miralax] 17 gram/dose powder 17 g PO BID PRN (Reason: laxative effect) Qty: 238 4RF mirabegron [Myrbetriq] 50 mg tablet extended release 24 hr 50 mg PO DAILY Qty: 90 4RF (DME) pen needle, diabetic [BD Ultra-Fine Mini Pen Needle] 31 gauge x 3/16 needle See Rx Instructions .ROUTE .MEDSUPPLY Qty: 90 4RF Rx Instructions: Daily E11.9 (DME) blood-glucose meter [FreeStyle Lite Meter] Kit See Rx Instructions .Route Qty: 1 0RF Rx Instructions: 3 times daily testing E11.9 (DME) lancets [FreeStyle Lancets] 28 gauge misc See Rx Instructions .ROUTE .MEDSUPPLY Qty: 300 5RF Rx Instructions: 3 times daily testing E11.9 Creon 24,000-76,000 -120,000 unit capsule,delayed release(DR/EC) 1 cap PO TID Qty: 270 4RF Rx Instructions: administer with meals and/or snacks Ordered by Opal Ontiveros senior power plant operator at [facility] [place] annie Wilder. 05/29/23. -hb triamcinolone acetonide 0.1 % cream 1 applic TP DAILY PRN (Reason: irritation) Qty: 80 0RF quetiapine 50 mg tablet 50 mg PO BID Qty: 180 5RF (DME) pen needle, diabetic [BD Ultra-Fine Mini Pen Needle] 31 gauge x 3/16 needle See Rx Instructions .ROUTE .MEDSUPPLY Qty: 200 4RF Rx Instructions: use one BID E11.9 celecoxib 100 mg capsule 100 mg PO BID Qty: 180 2RF pregabalin 25 mg capsule 25 mg PO BID Qty: 180 3RF clonazepam 0.5 mg tablet 0.5 mg PO BID Qty: 180 3RF Discharge Instructions Additional Instructions: You were seen in the emergency department to have your labs assessed. Your alkaline phosphatase is slightly elevated. This is improved. As we discussed, if you develop fevers abdominal pain nausea vomiting please return to the emergency department. Otherwise please follow-up with your primary care provider as needed next week. HPI General Date/Time Provider Initiated Documentation: 10/18/24 13:29 . HPI Narrative: MDM This overall is quite well-appearing normothermic and not tachycardic 79-year-old female recent initiation of chemotherapy with gemcitabine with report of jaundice but no objective evidence of jaundice for which patient will receive assessment of labs including LFTs. Given recent chemotherapy I consid ered neutropenic fever however patient has not had fevers. She does not complain of cough nor shortness of breath to suggest pneumonia. No abdominal tenderness or pain intra-abdominal infection. Based on the patient's reassuring presentation and reassuring vital signs I felt that the risks of broad-spectrum antibiotics assessment of lactate and blood cultures outweigh the benefits. She had no black or bloody stools to suggest GI bleed. No dysuria nor frequency to suggest UTI. 2:45 PM Patient did have new leukopenia. She also had new lymphopenia she had mild normocytic anemia. No leukocytosis. Lymphopenia likely secondary to recent chemotherapy. She was not neutropenic. Her LFTs were reassuring. She did a mildly elevated alkaline phosphatase but this was improved since prior assessment. We discussed that she should return to the emergency department for abdominal pain nausea vomiting or fevers. She understood her return indications and was discharged with an empiric trial of expectant outpatient management. HPI The patient presents for evaluation of jaundice. Her caregiver and observed a yellowish discoloration in her skin this morning. She has started chemotherapy with gemcitabine and had an infusion 2 days ago. She reports no fevers, nausea, vomiting, abdominal pain, chest pain, or respiratory distress. Her appetite remains robust, and she has urinated 3 times today. She reports no presence of black or bloody stools or any swelling in her legs. She received a full round of chemotherapy last and is scheduled for another session this coming . She was previously diagnosed with jaundice on 08/30/2024, which was attributed to a displaced pancreatic stent. Exam General: Well-appearing in no acute distress speaking in complete sentences. Head: Normocephalic, atraumatic. Eye: Extraocular eye movements intact. No conjunctival injection. No scleral icterus. Ear, nose, mouth, throat: Grossly normal inspection. Normal voice, handling secretions normally. Neck: Trachea midline. Cardiovascular: Well-perfused distal extremities. Regular rate and rhythm. Respiratory: Nonlabored respiration. Clear lungs bilaterally. Gastrointestinal: Nondistended abdomen. Soft nontender abdomen. Musculoskeletal: No edema. Moving all 4 extremities spontaneously. Skin: Normal for age and race, grossly normal temperature and turgor. No acute rash. Patient does not appear jaundiced. Neurologic: Alert and appropriate, no apparent acute deficits. Psychiatric: Mood and manner are appropriate. Grooming and personal hygiene are appropriate. Related Data Home Medications ?Medication ?Instructions ?Recorded ?Confirmed pen needle, diabetic 31 gauge x #90 ea 10/31/2207/20 (BD Ultra-Fine Mini Pen Needle) blood-glucose meter (FreeStyle #1 ea 04/03/23 10/18/24 Lite Meter kit) polyethylene glycol 3350 17 17 g PO BID PRN laxative e ffect 04/23/23 10/18/24 gram/dose oral powder (Miralax) #238 grams lancets 28 gauge (FreeStyle #300 ea 05/08/23 10/18/24 Lancets) blood sugar diagnostic (FreeStyle #300 ea 05/29/23 Test strips) Creon 24,000-76,000-120,000 unit 1 cap PO TID #270 cap s 05/30/23 10/18/24 capsule,delayed release ([id number]-[id number]-lvhsdzx) estradiol 0.01% (0.1 mg/gram) 1 g vaginal DAILY #42.5 grams 06/21/23 10/18/24 vaginal cream triamcinolone acetonide 0.1 % 1 applic topical DAILY P RN 06/28/23 10/18/24 topical cream irritation #80 grams fluticasone propionate 50 2 spray intranasal DAILY #16 grams 07/16/23 10/18/24 mcg/actuation nasal spray,suspension haloperidol 0.5 mg tablet 0.5 mg PO BID PRN nausea and 07/16/23 10/18/24 vomiting #30 tabs methenamine hippurate 1 gram tablet 1 g PO BID #180 ta b-caps 03/21/24 10/18/24 quetiapine 50 mg tablet 50 mg PO BID #180 tabs 06/1310/18/24 pen needle, diabetic 31 gauge x #200 ea 06/18/2410/18 (BD Ultra-Fine Mini Pen Needle) insulin glargine 100 unit/mL (3 See Rx Instructions lamar bcut BID #45 08/14/24 10/18/24 mL) subcutaneous pen (Lantus mL Solostar U-100 Insulin) celecoxib 100 mg capsule 100 mg PO BID #180 caps 08/0610/18/24 pregabalin 25 mg capsule 25 mg PO BID #180 caps 09/0810/18/24 mirabegron 50 mg tablet,extended 50 mg PO DAILY #90 ta bs 09/17/24 10/18/24 release 24 hr (Myrbetriq) clonazepam 0.5 mg tablet 0.5 mg PO BID #180 tab-caps 09/22/24 10/18/24 Previous Rx's ?Medication ?Instructions ?Recorded pen needle, diabetic 31 gauge x #90 ea 10/31/2207/20 (BD Ultra-Fine Mini Pen Needle) blood-glucose meter (FreeStyle #1 ea 04/03/23 Lite Meter kit) polyethylene glycol 3350 17 17 g PO BID PRN laxative e ffect 04/23/23 gram/dose oral powder (Miralax) #238 grams lancets 28 gauge (FreeStyle #300 ea 05/08/23 Lancets) blood sugar diagnostic (FreeStyle #300 ea 05/29/23 Test strips) Creon 24,000-76,000-120,000 unit 1 cap PO TID #270 cap s 05/30/23 capsule,delayed release (fvrhnm-ppkmeaka-yqrytvs) estradiol 0.01% (0.1 mg/gram) 1 g vaginal DAILY #42.5 grams 06/21/23 vaginal cream triamcinolone acetonide 0.1 % 1 applic topical DAILY P RN 06/28/23 topical cream irritation #80 grams fluticasone propionate 50 2 spray intranasal DAILY #16 grams 07/16/23 mcg/actuation nasal spray,suspension haloperidol 0.5 mg tablet 0.5 mg PO BID PRN nausea and 07/16/23 vomiting #30 tabs methenamine hippurate 1 gram tablet 1 g PO BID #180 ta b-caps 03/21/24 quetiapine 50 mg tablet 50 mg PO BID #180 tabs 06/13 pen needle, diabetic 31 gauge x #200 ea 06/18/2407/20 (BD Ultra-Fine Mini Pen Needle) insulin glargine 100 unit/mL (3 See Rx Instructions lamar bcut BID #45 08/14/24 mL) subcutaneous pen (Lantus mL Solostar U-100 Insulin) celecoxib 100 mg capsule 100 mg PO BID #180 caps 08/06 08/29 pregabalin 25 mg capsule 25 mg PO BID #180 caps 09/08 mirabegron 50 mg tablet,extended 50 mg PO DAILY #90 ta bs 09/17/24 release 24 hr (Myrbetriq) clonazepam 0.5 mg tablet 0.5 mg PO BID #180 tab-caps 09/22/24 Allergies Allergy/AdvReac Type Severity Reaction Status Date / Time ibuprofen AdvReac Mild Stomach Verified 10/18/24 13:37 cramps General ANDER: 3 Medical Decision Making Quality:SDOH Health Related Social Needs: Health related social needs daily activities Health related social needs details has steady housing , not worried about it. PFSH All Active Problems (Updated 10/18/24 @ 15:00 by Yung Andrew MD) Alkaline phosphatase elevation (Acute) Elevated liver enzymes (Acute) Diabetes mellitus (Chronic) Nausea & vomiting (Acute) DIMITRY (acute kidney injury) (Acute) Impaired functional mobility, balance, gait, and endurance (Acute) Peripheral neuropathy (Acute) Diabetic amyotrophy (Acute) Peroneal neuropathy (Acute) Heart murmur (Acute) Balance problem (Acute) Foot drop, left (Acute) Advanced care planning/counseling discussion (Acute) Low back pain potentially associated with radiculopathy (Acute) Hip pain (Acute) Diabetes mellitus with neuropathy (Acute) Nail dystrophy (Acute) Memory changes (Acute) Mass, brain (Acute) MRI 04/17/23 3mm small enhancing focus ? mets Adenocarcinoma of pancreas (Acute) bx 03/29 at [facility] [place] Hypertension (Chronic) Acute on chronic anemia (Acute) Liver failure, acute (Acute) Hyperbilirubinemia (Acute) Thrombocytopenia (Acute) Transaminitis (Acute) Jaundice (Acute) Anxiety (Chronic) chronic benzodiazipine use 03/27/17 FLOR-7 SCORE=7 07/02/17 FLOR-7 SCORE=13 Diverticulosis of colon without diverticulitis (Chronic) Lichen planus (Chronic) mouth OAB (overactive bladder) (Acute) Medical History Nuclear age-related cataract, left eye Ingrown nail Osteoporosis Insomnia Hematuria Neg work-up 2013. UA not meeting RBC in years since for repeat Right hip pain (03/27/17) Hypercholesterolemia Generalized osteoarthrosis low back pain; xray + DJD Ingrowing toenail (04/14/14) Hematuria unspeficified; asymptomatic; neg W/U Fatigue 06/26/12 Ingrown toenail 04/14/14 Urinary tract infectious disease recurrent Surgical History Nuclear age-related cataract, right eye History of cataract surgery History of bladder repair surgery Status post laparoscopic hysterectomy H/O bladder repair surgery sling S/P laparoscopic hysterectomy 05/07/83 partial, dysmenorrhea Hysterectomy, Laproscopic (~1983) partial; dysmenorrhea Bladder Surgery (~1999) SLING Family History Mother , age 92 Dementia Father , age 78 Cancer Brother Asthma Brother ALS (amyotrophic lateral sclerosis) Brother No problems noted. Maternal Grandfather , age 50 Black lung disease Paternal Grandfather , age 65 Black lung disease Maternal Grandmother , age 80 No problems noted. Paternal Grandmother , age 84 No problems noted. Son No problems noted. Son No problems noted. Social History Smoking/Tobacco Use Status: Former Tobacco Use tobacco type: cigarettes Quit Date: 05/07/97 Tobacco: How many years used: 30 Second Hand Exposure: Yes Smoking risk assessment performed?: Yes Alcohol Intake: current Alcohol Intake frequency: holidays/special occasions only Drug use: Never Substance use type: does not use Adopted: No Household members: spouse Housing: house Number of Children: 2 number of grandchildren: 4 Communication Needs: None Education Level: college Details: A[employer]S. 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 Pets and animals: No Sexually active: No Do you think of yourself as: straight/heterosexual Current gender identity: female What is your relationship status?: How often do you talk on the phone with friends or family?: three or more times per week How often do you get together with friends or relatives?: decline to answer How often do you attend congregational or mormon services?: 4 or more times per year Do you belong to any clubs or organized social groups?: yes Panel score (0-1 are the most socially isolated patients): 4 What type of physical activity do you participate in: walking, aerobic, bicycling and swimming Duration: 30-45 minutes/day Frequency: 3-4 times per week Lorraine/Yarsanism: Moravian Special lorraine needs: No Seatbelt use: always Helmet use: Yes Helmet use: always Drive intox or ride w/intox funeral car driver: No Firearms in home: Yes Do you feel safe at home: Yes Do you feel safe in your relationship?: Yes Victim of physical abuse: No Victim of emotional abuse: No Victim of sexual abuse: No Would you like helpful sources: No
[2024-10-18 14:20] LABS: Abs Immature Grans 0.01 10^3/uL (0.0-0.06); Absolute Basophil Count 0.01 10^3/uL (0.0-0.2); Absolute Eosinophil Count 0.17 10^3/uL (0.0-0.7); Absolute Lymphocyte Count 0.68 10^3/uL (1.2-3.4); Absolute Monocyte Count 0.13 10^3/uL (0.1-0.8); Absolute Neutrophil Count 2.33 10^3/uL (1.2-6.7); Basophils % 0.3 %; Eosinophils % 5.1 %; HCT 32.5 % (36.0-46.0); HGB 10.9 g/dL (11.2-15.7); Immature Grans % 0.3 %; Lymphocytes % 20.4 %; MCH 28.5 pg (27.0-33.0); MCHC 33.5 % (32.0-36.0); MCV 85 fL (80-95); MPV 11.7 fL (8.0-11.0); Monocytes % 3.9 %; Platelet Count 189 10^3/uL (130-400); RBC 3.82 10^6/uL (3.93-5.22); RDW 13.8 % (11.7-14.6); RDW-SD 42.8 fL; WBC 3.33 10^3/uL (4.4-10.8)
[2024-10-18 14:33] LABS: ALT 58 U/L (14-59); AST 25 U/L (15-37); Albumin 2.5 g/dL (3.4-5.0); Alkaline Phosphatase 917 U/L (46-116); Anion Gap 7.9 mmol/L (3-11); BUN 25 mg/dL (7-18); Bilirubin, Total 0.5 mg/dL (0.2-1.0); CO2 29.1 mmol/L (21.0-32.0); CREATININE 0.8 mg/dL (0.55-1.02); Calcium 8.6 mg/dL (8.5-10.1); Chloride 99 mmol/L (98-107); Estimated GFR 74.44 (mL/min/1.73m2); Glucose 394 mg/dL (74-106); Lipase 6 U/L (<78); Potassium 4.4 mmol/L (3.5-5.1); Sodium 136 mmol/L (136-145); Total Protein 6.8 g/dL (6.4-8.2)
== END 2024-10-18 15:23 | disposition home or self-care (01) ==
PROVIDERS: Emergency Provider Emergency Medicine; PCP Family Medicine
DX: C25.9 Malignant neoplasm of pancreas, unspecified (principal); R74.8 Abnormal levels of other serum enzymes
CPT/HCPCS: 99283 ×2; 36415; 80053; 83690; 85025

== ENCOUNTER 2024-10-30 00:59 | Outpatient (RCR) | payer OTHER, SELFPAY ==
[2024-10-16 12:56] LABS: Abs Immature Grans 0.01 10^3/uL (0.0-0.06); Absolute Basophil Count 0.03 10^3/uL (0.0-0.2); Absolute Eosinophil Count 0.21 10^3/uL (0.0-0.7); Absolute Lymphocyte Count 1.02 10^3/uL (1.2-3.4); Absolute Monocyte Count 0.27 10^3/uL (0.1-0.8); Absolute Neutrophil Count 3.06 10^3/uL (1.2-6.7); Basophils % 0.7 %; Eosinophils % 4.6 %; HCT 33.6 % (36.0-46.0); HGB 11.5 g/dL (11.2-15.7); Immature Grans % 0.2 %; Lymphocytes % 22.2 %; MCH 28.9 pg (27.0-33.0); MCHC 34.2 % (32.0-36.0); MCV 84 fL (80-95); Monocytes % 5.9 %; Neutrophils % 66.4 %; Platelet Count 261 10^3/uL (130-400); RBC 3.98 10^6/uL (3.93-5.22); RDW 13.9 % (11.7-14.6)
[2024-10-16] MEDS: Normal Saline Flush 10 ML SYR IVP (13:28)
[2024-10-16 14:00] LABS: ALT 97 U/L (14-59); AST 57 U/L (15-37); Albumin 2.7 g/dL (3.4-5.0); Anion Gap 6.3 mmol/L (3-11); BUN 20 mg/dL (7-18); Bilirubin, Total 0.5 mg/dL (0.2-1.0); CO2 27.7 mmol/L (21.0-32.0); CREATININE 0.7 mg/dL (0.55-1.02); Calcium 8.7 mg/dL (8.5-10.1); Chloride 102 mmol/L (98-107); Estimated GFR 87.37 (mL/min/1.73m2); Glucose 384 mg/dL (74-106); Potassium 4.1 mmol/L (3.5-5.1); Sodium 136 mmol/L (136-145); Total Protein 7.1 g/dL (6.4-8.2)
[2024-10-16 14:02] LABS: Alkaline Phosphatase 1372 U/L (46-116)
[2024-10-17 10:44] LABS: CA 19-9 2497 U/mL (<35)
[2024-10-23 11:21] LABS: Abs Immature Grans 0.01 10^3/uL (0.0-0.06); Absolute Basophil Count 0.03 10^3/uL (0.0-0.2); Absolute Eosinophil Count 0.06 10^3/uL (0.0-0.7); Absolute Monocyte Count 0.19 10^3/uL (0.1-0.8); Absolute Neutrophil Count 2.06 10^3/uL (1.2-6.7); Basophils % 0.8 %; Eosinophils % 1.7 %; HCT 32.9 % (36.0-46.0); Immature Grans % 0.3 %; Lymphocytes % 33.8 %; MCH 28.4 pg (27.0-33.0); MCHC 33.4 % (32.0-36.0); MCV 85 fL (80-95); MPV 11.8 fL (8.0-11.0); Monocytes % 5.4 %; Platelet Count 172 10^3/uL (130-400); RBC 3.87 10^6/uL (3.93-5.22); RDW 13.4 % (11.7-14.6); RDW-SD 41.6 fL; WBC 3.55 10^3/uL (4.4-10.8)
[2024-10-23] MEDS: Normal Saline Flush 10 ML SYR IVP (11:23)
[2024-10-23 11:54] LABS: ALT 75 U/L (14-59); AST 50 U/L (15-37); Albumin 2.7 g/dL (3.4-5.0); Alkaline Phosphatase 886 U/L (46-116); Anion Gap 6.5 mmol/L (3-11); BUN 25 mg/dL (7-18); Bilirubin, Total 0.4 mg/dL (0.2-1.0); CO2 29.5 mmol/L (21.0-32.0); Calcium 8.8 mg/dL (8.5-10.1); Chloride 103 mmol/L (98-107); Estimated GFR 56.95 (mL/min/1.73m2); Glucose 235 mg/dL (74-106); Potassium 3.7 mmol/L (3.5-5.1); Sodium 139 mmol/L (136-145)
[2024-10-24 11:42] LABS: CA 19-9 1666 U/mL (<35)
[2024-10-30] MEDS: Normal Saline Flush 10 ML SYR IVP (10:30)
[2024-10-30 10:52] LABS: Abs Immature Grans 0.01 10^3/uL (0.0-0.06); Absolute Basophil Count 0.02 10^3/uL (0.0-0.2); Absolute Eosinophil Count 0.03 10^3/uL (0.0-0.7); Absolute Monocyte Count 0.22 10^3/uL (0.1-0.8); Absolute Neutrophil Count 1.64 10^3/uL (1.2-6.7); Basophils % 0.8 %; Eosinophils % 1.1 %; HCT 30.3 % (36.0-46.0); HGB 10.3 g/dL (11.2-15.7); Immature Grans % 0.4 %; Lymphocytes % 26.7 %; MCH 28.7 pg (27.0-33.0); MCV 84 fL (80-95); Monocytes % 8.4 %; Neutrophils % 62.6 %; RBC 3.59 10^6/uL (3.93-5.22); RDW 13.3 % (11.7-14.6); RDW-SD 41.1 fL; WBC 2.62 10^3/uL (4.4-10.8)
[2024-10-30 11:16] LABS: ALT 52 U/L (14-59); AST 46 U/L (15-37); Albumin 2.5 g/dL (3.4-5.0); Alkaline Phosphatase 548 U/L (46-116); Anion Gap 6.4 mmol/L (3-11); BUN 24 mg/dL (7-18); Bilirubin, Total 0.3 mg/dL (0.2-1.0); CO2 27.6 mmol/L (21.0-32.0); CREATININE 0.8 mg/dL (0.55-1.02); Calcium 8.3 mg/dL (8.5-10.1); Chloride 104 mmol/L (98-107); Estimated GFR 74.44 (mL/min/1.73m2); Glucose 361 mg/dL (74-106); Potassium 4.3 mmol/L (3.5-5.1); Sodium 138 mmol/L (136-145); Total Protein 6.8 g/dL (6.4-8.2)
[2024-10-30 11:37] LABS: Platelet Count 92 10^3/uL (130-400); RBC Morphology Normal
== END 2024-11-03 23:59 | disposition home or self-care (01) ==
LOC: INF 00:59
PROVIDERS: PCP Family Medicine; Visit Provider Internal Medicine Hematology & Oncology
DX: C25.0 Malignant neoplasm of head of pancreas (principal); Z45.2 Encounter for adjustment and management of vascular access device
CPT/HCPCS: 36591; 80053; 85025; 86301

== ENCOUNTER 2024-11-24 16:53 | Emergency (ER) | payer OTHER, SELFPAY ==
[2024-11-24] VITALS (25 sets, daily range): BP systolic 149–181; BP diastolic 62–79; PULSE 67–82; RESP 14; TEMP 36.9; O2SAT 90–97
--- NOTE | 2024-11-24 17:29 | W.ED.GENAD ---
Discharge Plan Disposition Patient Disposition: Home Condition: Stable Discharge Details Clinical Impression: Abdominal pain, Calculus of left ureter Primary Care Provider: Sarah Weldon ED Provider: Cosme Gao [place] Meds and New Rx's Prescriptions: New tamsulosin 0.4 mg capsule 0.4 mg PO DAILY Qty: 13 0RF Rx Instructions: take one daily for 14 total days or until you pass your kidney stone ketorolac 10 mg tablet 10 mg PO Q8H PRN (Reason: pain) Qty: 14 0RF Rx Instructions: maximum total duration of 5 days from all oral, intranasal, or parenteral formulations Continued fluticasone propionate 50 mcg/actuation spray,suspension 2 spray intranasal DAILY Qty: 16 2RF Rx Instructions: administer into each nostril estradiol 0.01 % (0.1 mg/gram) cream 1 g vaginal DAILY Qty: 42.5 5RF Rx Instructions: do daily until seen by Dr Smith again methenamine hippurate 1 gram tablet 1 g PO BID Qty: 180 3RF polyethylene glycol 3350 [Miralax] 17 gram/dose powder 17 g PO BID PRN (Reason: laxative effect) Qty: 238 4RF mirabegron [Myrbetriq] 50 mg tablet extended release 24 hr 50 mg PO DAILY Qty: 90 4RF insulin glargine [Lantus Solostar U-100 Insulin] 100 unit/mL (3 mL) insulin pen See Rx Instructions subcut BID Qty: 60 7RF Rx Instructions: 40 Unit subcutaneously a day; (DME) pen needle, diabetic [BD Ultra-Fine Mini Pen Needle] 31 gauge x 3/16 needle See Rx Instructions .ROUTE .MEDSUPPLY Qty: 90 4RF Rx Instructions: Daily E11.9 (DME) blood-glucose meter [FreeStyle Lite Meter] Kit See Rx Instructions .Route Qty: 1 0RF Rx Instructions: 3 times daily testing E11.9 Creon 24,000-76,000 -120,000 unit capsule,delayed release(DR/EC) 1 cap PO TID Qty: 270 4RF Rx Instructions: administer with meals and/or snacks Ordered by Opal Ontiveros comp field case manager [place] [facility] [place]. 05/29/23. -hb triamcinolone acetonide 0.1 % cream 1 applic TP DAILY PRN (Reason: irritation) Qty: 80 0RF quetiapine 50 mg tablet 50 mg PO BID Qty: 180 5RF (DME) pen needle, diabetic [BD Ultra-Fine Mini Pen Needle] 31 gauge x 3/16 needle See Rx Instructions .ROUTE .MEDSUPPLY Qty: 200 4RF Rx Instructions: use one BID E11.9 pregabalin 25 mg capsule 25 mg PO BID Qty: 180 3RF clonazepam 0.5 mg tablet 0.5 mg PO BID Qty: 180 3RF (DME) lancets [FreeStyle Lancets] 28 gauge misc See Rx Instructions .ROUTE .MEDSUPPLY Qty: 300 5RF Rx Instructions: 3 times daily testing E11.9 (DME) FreeStyle Test Strip See Rx Instructions .Route Qty: 300 4RF Rx Instructions: 3 times daily E11.9 Held celecoxib 100 mg capsule 100 mg PO BID Qty: 180 2RF Hold Instructions: Resume on 11/28/24. don't take while taking ketorolac Discharge Instructions Additional Instructions: You have a kidney stone which is almost into the bladder. Once it is in the bladder usually the pain resolves. I will place you on our follow-up list to try and see urology soon as possible. You can also take 1000 mg of acetaminophen every 6 hours as needed. Do not exceed 3000 mg in a 24-hour period. If you feel more ill or have new symptoms such as high fevers return to emergency department for reevaluation. HPI General Mode of arrival: ambulatory. Date/Time Provider Initiated Documentation: 11/24/24 17:01. Limitations to Documentation: no limitations. Information obtained by: patient. History of Present Illness 79 year old F presents to the emergency department with the chief complaint of abdominal pain, described as moderate, Quality is described as aching, and is localized to the abdomen. Patient reports no radiation. Patient started experiencing this day(s) (2) and it has been constant. No relieving factors improve symptom(s), No exacerbating factors reported . Patient notes no other symptoms.. Patient did receive the following treatments prior to arrival, none Related Data Home Medications ?Medication ?Instructions ?Recorded ?Confirmed pen needle, diabetic 31 gauge x #90 ea 10/31/22 11/24/24 3/16 (BD Ultra-Fine Mini Pen Needle) blood-glucose meter (FreeStyle #1 ea 04/03/23 11/24/24 Lite Meter kit) polyethylene glycol 3350 17 17 g PO BID PRN laxative effect 04/23/23 11/24/24 gram/dose oral powder (Miralax) #238 grams Creon 24,000-76,000-120,000 unit 1 cap PO TID #270 caps 05/30/23 11/24/24 capsule,delayed release (aixxwa-spankguj-mksuwzo) estradiol 0.01% (0.1 mg/gram) 1 g vaginal DAILY #42.5 grams 06/21/23 11/24/24 vaginal cream triamcinolone acetonide 0.1 % 1 applic topical DAILY PRN 06/28/23 11/24/24 topical cream irritation #80 grams fluticasone propionate 50 2 spray intranasal DAILY #16 grams 07/16/23 11/24/24 mcg/actuation nasal spray,suspension methenamine hippurate 1 gram tablet 1 g PO BID #180 tab-caps 03/21/24 11/24/24 quetiapine 50 mg tablet 50 mg PO BID #180 tabs 06/13/24 11/24/24 pen needle, diabetic 31 gauge x #200 ea 06/18/24 11/24/2407/20 (BD Ultra-Fine Mini Pen Needle) celecoxib 100 mg capsule 100 mg PO BID #180 caps 08/28/24 11/24/24 Held on 11/24/24. Instructions: Resume on 11/28/24. don't take while taking ketorolac pregabalin 25 mg capsule 25 mg PO BID #180 caps 09/08/24 11/24/24 mirabegron 50 mg tablet,extended 50 mg PO DAILY #90 tabs 09/17/24 11/24/24 release 24 hr (Myrbetriq) clonazepam 0.5 mg tablet 0.5 mg PO BID #180 tab-caps 09/22/24 11/24/24 insulin glargine 100 unit/mL (3 See Rx Instructions subcut BID #60 10/20/24 11/24/24 mL) subcutaneous pen (Lantus mL Solostar U-100 Insulin) blood sugar diagnostic (FreeStyle #300 ea 11/03/24 11/24/24 Test strips) lancets 28 gauge (FreeStyle #300 ea 11/03/24 11/24/24 Lancets) ketorolac 10 mg tablet 10 mg PO Q8H PRN pain #14 tabs 11/24/24 tamsulosin 0.4 mg capsule 0.4 mg PO DAILY #13 caps 11/24/24 Previous Rx's ?Medication ?Instructions ?Recorded pen needle, diabetic 31 gauge x #90 ea 10/31/2207/20 (BD Ultra-Fine Mini Pen Needle) blood-glucose meter (FreeStyle #1 ea 04/03/23 Lite Meter kit) polyethylene glycol 3350 17 17 g PO BID PRN laxative effect 04/23/23 gram/dose oral powder (Miralax) #238 grams Creon 24,000-76,000-120,000 unit 1 cap PO TID #270 caps 05/30/23 capsule,delayed release (raydse-tgvvmuno-dwixbzr) estradiol 0.01% (0.1 mg/gram) 1 g vaginal DAILY #42.5 grams 06/21/23 vaginal cream triamcinolone acetonide 0.1 % 1 applic topical DAILY PRN 06/28/23 topical cream irritation #80 grams fluticasone propionate 50 2 spray intranasal DAILY #16 grams 07/16/23 mcg/actuation nasal spray,suspension methenamine hippurate 1 gram tablet 1 g PO BID #180 tab-caps 03/21/24 quetiapine 50 mg tablet 50 mg PO BID #180 tabs 06/13/24 pen needle, diabetic 31 gauge x #200 ea 06/18/2407/20 (BD Ultra-Fine Mini Pen Needle) celecoxib 100 mg capsule 100 mg PO BID #180 caps 08/28/24 Held on 11/24/24. Instructions: Resume on 11/28/24. don't take while taking ketorolac pregabalin 25 mg capsule 25 mg PO BID #180 caps 09/08/24 mirabegron 50 mg tablet,extended 50 mg PO DAILY #90 tabs 09/17/24 release 24 hr (Myrbetriq) clonazepam 0.5 mg tablet 0.5 mg PO BID #180 tab-caps 09/22/24 insulin glargine 100 unit/mL (3 See Rx Instructions subcut BID #60 10/20/24 mL) subcutaneous pen (Lantus mL Solostar U-100 Insulin) blood sugar diagnostic (FreeStyle #300 ea 06/30/25 Test strips) lancets 28 gauge (FreeStyle #300 ea 11/03/24 Lancets) ketorolac 10 mg tablet 10 mg PO Q8H PRN pain #14 tabs 11/24/24 tamsulosin 0.4 mg capsule 0.4 mg PO DAILY #13 caps 11/24/24 Allergies Allergy/AdvReac Type Severity Reaction Status Date / Time ibuprofen AdvReac Mild Stomach Verified 11/24/24 17:11 cramps General Stated Complaint: Abd Prob ANDER: 3 Review of Systems All systems reviewed & are unremarkable except as noted in HPI and below Constitutional Constitutional: Denies chills, Denies fever(s) and Denies weakness Cardiovascular Cardiovascular: Denies chest pain and Denies dyspnea Respiratory Respiratory: Denies cough and Denies dyspnea Gastrointestinal Gastrointestinal: Reports abdominal pain, Reports nausea and Denies vomiting Neurologic Neurologic: Denies weakness Exam Const General: no acute distress Orientation: alert HENMT Head: normal to inspection Ears: external ears normal General nose exam: external nose normal Mouth: moist mucous membranes Eyes General: appearance normal, both eyes and all related structures Neck Neck: normal visual inspection Resp Effort & Inspection: normal respiratory effort and able to speak in complete sentences Cardio Rate: regular rate GI Palpation: soft, not firm, no guarding and tender Skin General skin exam: no rashes or lesions noted Neuro General: patient alert and patient oriented x3 Extrem General: normal to inspection Psych Mental Status: mental status grossly normal Course Vital Signs Vital signs: Vital Signs Temperature 36.9 C 11/24/24 17:08 Pulse 74 11/24/24 17:08 Respiratory Rate 14 11/24/24 17:08 Blood Pressure 149/79 H 11/24/24 17:08 Pulse Oximetry 94 11/24/24 17:08 Temperature 36.9 C 11/24/24 17:08 Temperature Source Oral 11/24/24 17:08 Pulse 74 11/24/24 17:08 Respiratory Rate 14 11/24/24 17:08 Blood Pressure 149/79 H 11/24/24 17:08 Blood Pressure Position Sitting 11/24/24 17:08 Pulse Oximetry 94 11/24/24 17:08 Oxygen Delivery Method Room Air 11/24/24 17:08 Oxygen Flow Rate 0 11/24/24 17:08 Pain Level 8 11/24/24 17:08 Medical Decision Making 79-year-old female with a history of pancreatic cancer who is currently getting chemotherapy and last had last week but has not had any issues with chemotherapy since starting treatment comes in with abdominal pain and nausea since yesterday. She says the pain is in her mid and lower left abdomen. She had 1 episode of vomiting today. Denies any fevers, chest pain, difficulty breathing. She is alert oriented x 4 on arrival. Abdomen is soft and nondistended. She has mid and lower left quadrant tenderness without guarding. Given her history we will proceed with CBC, CMP, lipase and CT abdomen pelvis to evaluate for entities such as diverticulitis versus SBO. Patient is labs show no significant changes from baseline. CT shows 6 mm left sided kidney stone at the UVJ. Also has evidence of likely splenic infarct which she is on prior CT imaging. Patient is resting in bed and states she has absolutely no pain. Offered admission for pain control but given her pain is resolved with just 1 dose of Toradol she request discharge which I feel is reasonable. She has follow-up on with her oncologist and was advised of the splenic infarcts and will discuss with them and I will place on her follow-up list to see urology. Return precautions given Differential Diagnosis Differential Diagnosis: Diverticulitis, pancreatitis, SBO Medical Records Medical records reviewed: Yes I reviewed the patient's medical records. Lab Data Lab results reviewed: Yes I reviewed the patient's lab results. Quality:SDOH Health Related Social Needs: Health related social needs daily activities Health related social needs details has steady housing, not worried about it. PFSH All Active Problems (Updated 11/24/24 @ 21:35 by Cosme Gao MD) Calculus of left ureter (Acute) Abdominal pain (Acute) Elevated liver enzymes (Acute) Diabetes mellitus (Chronic) Nausea & vomiting (Acute) DIMITRY (acute kidney injury) (Acute) Impaired functional mobility, balance, gait, and endurance (Acute) Peripheral neuropathy (Acute) Diabetic amyotrophy (Acute) Peroneal neuropathy (Acute) Heart murmur (Acute) Balance problem (Acute) Foot drop, left (Acute) Advanced care planning/counseling discussion (Acute) Low back pain potentially associated with radiculopathy (Acute) Hip pain (Acute) Diabetes mellitus with neuropathy (Acute) Nail dystrophy (Acute) Memory changes (Acute) Mass, brain (Acute) MRI 04/17/23 3mm small enhancing focus ? mets Adenocarcinoma of pancreas (Acute) [place] 03[place] [facility] Hypertension (Chronic) Acute on chronic anemia (Acute) Liver failure, acute (Acute) Hyperbilirubinemia (Acute) Thrombocytopenia (Acute) Transaminitis (Acute) Jaundice (Acute) Anxiety (Chronic) chronic benzodiazipine use 03/27/17 FLOR-7 SCORE=7 07/02/17 FLOR-7 SCORE=13 Diverticulosis of colon without diverticulitis (Chronic) Lichen planus (Chronic) mouth OAB (overactive bladder) (Acute) Medical History Nuclear age-related cataract, left eye Ingrown nail Osteoporosis Insomnia Hematuria Neg work-up 2013. UA not meeting RBC in years since for repeat Right hip pain (03/27/17) Hypercholesterolemia Generalized osteoarthrosis low back pain; xray + DJD Ingrowing toenail (04/14/14) Hematuria unspeficified; asymptomatic; neg W/U Fatigue 06/26/12 Ingrown toenail 04/14/14 Urinary tract infectious disease recurrent Surgical History Nuclear age-related cataract, right eye History of cataract surgery History of bladder repair surgery Status post laparoscopic hysterectomy H/O bladder repair surgery sling S/P laparoscopic hysterectomy 05/07/83 partial, dysmenorrhea Hysterectomy, Laproscopic (~1983) partial; dysmenorrhea Bladder Surgery (~1999) SLING Family History Mother , age 92 Dementia Father , age 78 Cancer Brother Asthma Brother ALS (amyotrophic lateral sclerosis) Brother No problems noted. Maternal Grandfather , age 50 Black lung disease Paternal Grandfather , age 65 Black lung disease Maternal Grandmother , age 80 No problems noted. Paternal Grandmother , age 84 No problems noted. Son No problems noted. Son No problems noted. Social History Smoking/Tobacco Use Status: Former Tobacco Use tobacco type: cigarettes Quit Date: 05/07/97 Tobacco: How many years used: 30 Second Hand Exposure: Yes Smoking risk assessment performed?: Yes Alcohol Intake: current Alcohol Intake frequency: holidays/special occasions only Drug use: Never Substance use type: does not use Adopted: No Household members: spouse Housing: house Number of Children: 2 number of grandchildren: 4 Communication Needs: None Education Level: college Details: A.S. 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 Pets and animals: No Sexually active: No Do you think of yourself as: straight/heterosexual Current gender identity: female What is your relationship status?: How often do you talk on the phone with friends or family?: three or more times per week How often do you get together with friends or relatives?: decline to answer How often do you attend roman catholic or nondenominational services?: 4 or more times per year Do you belong to any clubs or organized social groups?: yes Panel score (0-1 are the most socially isolated patients): 4 What type of physical activity do you participate in: walking, aerobic, bicycling and swimming Duration: 30-45 minutes/day Frequency: 3-4 times per week Lorraine/Spiritism: Alevism Special lorraine needs: No Seatbelt use: always Helmet use: Yes Helmet use: always Drive intox or ride w/intox intermodal truck driver: No Firearms in home: Yes Do you feel safe at home: Yes Do you feel safe in your relationship?: Yes Victim of physical abuse: No Victim of emotional abuse: No Victim of sexual abuse: No Would you like helpful sources: No
[2024-11-24 18:01] LABS: BE (Venous) 6 mmol/L (-2-3); HCO3 (Venous) 30 mmol/L (23-28); O2 Sat (Venous) 84 %; TCO2 (Venous) 28 mmol/L (24-29); pCO2 (Venous) 45 mmHg (41-51); pO2 (Venous) 47 mmHg
[2024-11-24 18:02] LABS: Abs Immature Grans 0.04 10^3/uL (0.0-0.06); HCT 29.8 % (36.0-46.0); HGB 10.1 g/dL (11.2-15.7); Immature Grans % 0.5 %; MCH 28.7 pg (27.0-33.0); MCHC 33.9 % (32.0-36.0); MCV 85 fL (80-95); MPV 10.4 fL (8.0-11.0); Platelet Count 378 10^3/uL (130-400); RBC 3.52 10^6/uL (3.93-5.22); RDW 14.0 % (11.7-14.6); RDW-SD 43.0 fL; WBC 8.69 10^3/uL (4.4-10.8)
[2024-11-24] MEDS: Normal Saline 1,000 ML 1000 ML IV (18:05)
[2024-11-24] MEDS: Ondansetron 4 MG/2 ML VIAL IVP (18:06)
[2024-11-24] MEDS: Ketorolac 15 MG/ML VIAL IVP (18:06)
[2024-11-24 18:16] LABS: Lipase 7 U/L (<78)
[2024-11-24 18:28] LABS: ALT 180 U/L (14-59); AST 204 U/L (15-37); Albumin 2.5 g/dL (3.4-5.0); Anion Gap 6.4 mmol/L (3-11); BUN 27 mg/dL (7-18); Bilirubin, Direct 0.5 mg/dL (0.0-0.2); Bilirubin, Total 0.8 mg/dL (0.2-1.0); CO2 30.6 mmol/L (21.0-32.0); Calcium 8.9 mg/dL (8.5-10.1); Chloride 100 mmol/L (98-107); Estimated GFR 64.63 (mL/min/1.73m2); Glucose 166 mg/dL (74-106); Magnesium 1.9 mg/dL (1.8-2.4); Potassium 4.1 mmol/L (3.5-5.1); Sodium 137 mmol/L (136-145); Total Protein 7.4 g/dL (6.4-8.2)
[2024-11-24 18:52] LABS: Alkaline Phosphatase 1246 U/L (46-116)
[2024-11-24] MEDS: Normal Saline - Diluent 50 ML VIAL IJ (19:07)
[2024-11-24] MEDS: Omnipaque 350 MG/ML 100 ML BTL IJ (19:19)
--- NOTE | 2024-11-24 19:45 | DI.CT_ITS ---
Exam(s) CT ABDOMEN PELVIS W EXAM: CT ABDOMEN PELVIS W CLINICAL HISTORY: mid and lower left abdominal pain. TECHNIQUE: Imaging Protocol: Axial computed tomography images with coronal and sagittal reformatted images were created and reviewed CONTRAST MATERIAL: Intravenous: Omnipaque 350 Contrast volume:75 ml Oral: no COMPARISON: CT CT ABDOMEN PELVIS W from 08/30/2024 FINDINGS: ABDOMEN and PELVIS: Lung Bases: No acute findings. Liver: Stable biliary stent. Some improvement in amount of biliary dilatation. Stable biliary air. Normal density. No suspicious mass. Gallbladder and biliary tract: No radiodense calculus. No wall thickening or pericholecystic fluid. No biliary dilation. Pancreas: Pancreatic head mass difficult to discretely delineate. Body tail the pancreas appears somewhat atrophic and shows calcifications. Spleen: Large area of infarct involving the superior aspect of the spleen, new since the prior exam. Splenic vein again not visualized. Kidneys: Normal size, contour and axis. 6 x 7 millimeter stone noted at the left ureterovesical junction causing moderate left hydronephrosis. Delay in left nephrogram. Additional tiny nonobstructing stone measuring 5 millimeters at the lower pole of the right kidney. Right renal cysts again noted. Nonobstructing stone noted at the lower pole of the left kidney. No suspicious masses seen. Adrenal glands: No masses seen. Vasculature: Abdominal aorta non-dilated. Soft tissues: Unremarkable. Bladder: Mild diffuse wall thickening. No calculi.No focal mass. Bowel: A duodenal stent is now present. Large quantity of stool noted throughout the colon. No obstruction. No bowel wall thickening. Peritoneal cavity: No ascites. No focal collection. No mesenteric inflammatory response. No free air. Appendix is nondilated but does contain in an appendicoliths. Bones: Unremarkable for age. Reproductive organs: Hysterectomy. Lymph nodes: Mildly enlarged mesenteric lymph nodes. IMPRESSION:: Moderate left hydronephrosis secondary to a 7 millimeters calculus at the ureterovesical junction. Additional bilateral nonobstructing calculi are present. Pancreatic head mass again noted. Interval placement of duodenal stent. Stable appearance of biliary stent. New large splenic infarct. Large quantity of fecal material throughout the colon. The preliminary [facility] report was reviewed. RADIATION DOSE DELIVERED: 317.27mGy.cm Total DLP DATA REPOSITORY: All CT scans at this facility are submitted to the National Radiology Data Registry (NRDR) Dose Index Registry (DIR) with the [employer] (ACR). RADIATION OPTIMIZATION: All CT scans at this facility use at least one of these dose optimization techniques: automated exposure control; mA and/or kV adjustment per patient size (includes targeted exams where dose is matched to clinical indication); or iterative reconstruction.
[2024-11-24 20:11] LABS: Glucose 250 mg/dL (Negative)
--- NOTE | 2024-11-24 20:53 | DI.[facility]_ITS ---
PROCEDURE INFORMATION: Exam: CT Abdomen And Pelvis With Contrast Exam date and time: 11/24/2024 7:28 PM Age: 79 years old Clinical indication: Other: Mid and lower left abdominal pain TECHNIQUE: Imaging protocol: Computed tomography of the abdomen and pelvis with contrast. Contrast material: OMNIPAQUE 350; Contrast volume: 75 ml; Contrast route: INTRAVENOUS (IV); COMPARISON: CT ABDOMEN PELVIS W 08/30/2024 3:57 PM FINDINGS: Tubes, catheters and devices: A metallic biliary stent is present and appears to be filled with fluid or debris. Lungs: Mild atelectasis is present at the dependent lung bases. Liver: The liver is normal size. Gallbladder and biliary ducts: There is moderate left-sided pneumobilia. There is mild intrahepatic biliary ductal dilatation within the right hepatic lobe. Pancreas: Normal. No ductal dilation. Spleen: The spleen demonstrates heterogeneous enhancement suggesting a large region of infarct within the upper pole. This is a new finding when compared with the prior CT dated 08/30/2024. Adrenal glands: The adrenal glands have a normal appearance. Kidneys and ureters: The right kidney demonstrates normal size and enhancement. There is a nonobstructing 6 mm right renal calculus. There is a low-density right perirenal cyst. There is moderate to severe left hydronephrosis. There is a delayed left nephrogram and moderate left perinephric fat stranding. There is moderate left hydroureter. A 6 mm calculus is present within the distal left ureter at the level of the ureterovesicular junction. Stomach and bowel: A metallic duodenal stent is present and is filled with a combination of gas and fluid or debris. No gastric distension to suggest gastric outlet obstruction. A large amount of inspissated appearing stool is present throughout the colon. Appendix: The appendix is thin walled and gas-filled. A 4 mm appendicolith is present within the mid appendix. Intraperitoneal space: Unremarkable. No free air. No significant fluid collection. Vasculature: There are scattered atheromatous calcifications throughout the aorta and iliac arteries. Lymph nodes: No enlarged lymph nodes. Urinary bladder: The bladder is thin walled and fluid filled. Reproductive: The uterus is not visualized and may be surgically absent. Bones/joints: Unremarkable. No acute fracture. Soft tissues: Unremarkable. IMPRESSION: 1. Obstructive left hydroureter at the level of the ureterovesicular junction with a 6 mm calculus and resultant severe left hydronephrosis and delayed nephrogram. 2. Heterogeneous enhancement of the spleen suggesting large region of splenic infarct. The acuity of this finding is unknown but is likely new when compared with the CT dated 08/30/2024. 3. Normal appendix. 4. Large amount of inspissated stool throughout the colon suggesting slow transit and constipation. Dictated and Authenticated by: Zuliema Fernández MD. Orderin Murray Aguiar MD
[2024-11-24] MEDS: Ketorolac 10 MG TAB PO (22:13)
[2024-11-24] MEDS: Tamsulosin 0.4 MG CAPCR PO (22:14)
--- NOTE | 2024-11-25 17:00 | NUR.NOTE ---
Patient's called to say that pt's medication rx had been sent to [facility] mail order and they needed to go to [facility] in [facility] so he could pick them up for her. Prescriptions for ketorolac and tamsulosin called in to [facility]. Rx's will be ready in approx 30 minutes per pharmacist. called and made aware of when to pick them up.
== END 2024-11-24 22:20 | disposition home or self-care (01) ==
PROVIDERS: Emergency Provider Emergency Medicine; PCP Family Medicine
DX: N13.2 Hydronephrosis with renal and ureteral calculous obstruction (principal); R10.32 Left lower quadrant pain; E11.40 Type 2 diabetes mellitus with diabetic neuropathy, unspecified; C25.7 Malignant neoplasm of other parts of pancreas; Z79.4 Long term (current) use of insulin; Z92.21 Personal history of antineoplastic chemotherapy; Z87.891 Personal history of nicotine dependence
CPT/HCPCS: 80053; 82805; 83690; 96361; 96374; 96375; 99285; 74177; 81003; 81015; 82248; 83735; 85025; 99284; J1885; J2405; J3490

== ENCOUNTER 2024-11-27 01:48 | Outpatient (RCR) | payer OTHER, SELFPAY ==
[2024-11-13 11:10] LABS: Abs Immature Grans 0.05 10^3/uL (0.0-0.06); HCT 30.6 % (36.0-46.0); HGB 10.4 g/dL (11.2-15.7); Immature Grans % 1.2 %; MCH 28.9 pg (27.0-33.0); MCHC 34.0 % (32.0-36.0); MCV 85 fL (80-95); MPV 10.5 fL (8.0-11.0); Platelet Count 451 10^3/uL (130-400); RBC 3.60 10^6/uL (3.93-5.22); RDW 14.6 % (11.7-14.6); RDW-SD 44.9 fL; WBC 4.13 10^3/uL (4.4-10.8)
[2024-11-13 11:27] LABS: ALT 54 U/L (14-59); AST 38 U/L (15-37); Albumin 2.5 g/dL (3.4-5.0); Alkaline Phosphatase 441 U/L (46-116); Anion Gap 5.3 mmol/L (3-11); BUN 23 mg/dL (7-18); Bilirubin, Total 0.2 mg/dL (0.2-1.0); CO2 28.7 mmol/L (21.0-32.0); Calcium 8.3 mg/dL (8.5-10.1); Chloride 106 mmol/L (98-107); Estimated GFR 90.68 (mL/min/1.73m2); Glucose 226 mg/dL (74-106); Potassium 4.1 mmol/L (3.5-5.1); Sodium 140 mmol/L (136-145); Total Protein 6.7 g/dL (6.4-8.2)
[2024-11-13] MEDS: Normal Saline Flush 10 ML SYR IVP (11:55)
[2024-11-14 10:09] LABS: CA 19-9 1102 U/mL (<35)
[2024-11-20] MEDS: Normal Saline Flush 10 ML SYR IVP (11:55)
[2024-11-20 12:04] LABS: Abs Immature Grans 0.07 10^3/uL (0.0-0.06); HCT 29.5 % (36.0-46.0); HGB 10.0 g/dL (11.2-15.7); Immature Grans % 1.4 %; MCH 29.2 pg (27.0-33.0); MCHC 33.9 % (32.0-36.0); MCV 86 fL (80-95); MPV 10.9 fL (8.0-11.0); Platelet Count 472 10^3/uL (130-400); RBC 3.43 10^6/uL (3.93-5.22); RDW 14.2 % (11.7-14.6); RDW-SD 44.0 fL; WBC 4.99 10^3/uL (4.4-10.8)
[2024-11-20 12:24] LABS: ALT 79 U/L (14-59); AST 51 U/L (15-37); Albumin 2.6 g/dL (3.4-5.0); Alkaline Phosphatase 828 U/L (46-116); Anion Gap 6.3 mmol/L (3-11); BUN 24 mg/dL (7-18); Bilirubin, Total 0.2 mg/dL (0.2-1.0); CO2 29.7 mmol/L (21.0-32.0); Calcium 8.7 mg/dL (8.5-10.1); Chloride 101 mmol/L (98-107); Estimated GFR 87.37 (mL/min/1.73m2); Glucose 324 mg/dL (74-106); Potassium 4.2 mmol/L (3.5-5.1); Sodium 137 mmol/L (136-145); Total Protein 6.9 g/dL (6.4-8.2)
[2024-11-20 12:35] LABS: Hemoglobin A1C 10.1 % (<5.7)
[2024-11-20 12:51] LABS: TSH (W/Ref FT4) 1.53 uIU/mL (0.36-3.74); Vitamin B12 728 pg/mL (193-986)
[2024-11-27] MEDS: Normal Saline Flush 10 ML SYR IVP (13:09)
[2024-11-27 13:21] LABS: Abs Immature Grans 0.11 10^3/uL (0.0-0.06); HCT 28.0 % (36.0-46.0); HGB 9.4 g/dL (11.2-15.7); Immature Grans % 1.5 %; MCH 28.8 pg (27.0-33.0); MCHC 33.6 % (32.0-36.0); MCV 86 fL (80-95); MPV 10.5 fL (8.0-11.0); Platelet Count 251 10^3/uL (130-400); RBC 3.26 10^6/uL (3.93-5.22); RDW 14.1 % (11.7-14.6); RDW-SD 43.6 fL; WBC 7.37 10^3/uL (4.4-10.8)
[2024-11-27 13:53] LABS: ALT 185 U/L (14-59); AST 77 U/L (15-37); Albumin 2.2 g/dL (3.4-5.0); Anion Gap 5.1 mmol/L (3-11); BUN 26 mg/dL (7-18); Bilirubin, Total 0.4 mg/dL (0.2-1.0); CO2 29.9 mmol/L (21.0-32.0); Calcium 8.6 mg/dL (8.5-10.1); Chloride 99 mmol/L (98-107); Estimated GFR 50.80 (mL/min/1.73m2); Glucose 351 mg/dL (74-106); Potassium 4.4 mmol/L (3.5-5.1); Sodium 134 mmol/L (136-145); Total Protein 6.9 g/dL (6.4-8.2)
[2024-11-27 13:55] LABS: Alkaline Phosphatase 1323 U/L (46-116)
[2024-11-28 14:15] LABS: CA 19-9 1095 U/mL (<35)
== END 2024-12-04 23:59 | disposition home or self-care (01) ==
LOC: INF 01:48
PROVIDERS: PCP Family Medicine; Visit Provider Internal Medicine Hematology & Oncology
DX: C25.0 Malignant neoplasm of head of pancreas (principal)
CPT/HCPCS: 36415; 36591; 80053; 82607; 83036; 84443; 85025; 86301

== ENCOUNTER 2024-11-29 10:37 | Inpatient (IN) | payer OTHER, SELFPAY ==
[2024-11-29] VITALS (25 sets, daily range): BP systolic 106–162; BP diastolic 40–81; PULSE 71–162; RESP 13–22; TEMP 36.2–36.6; O2SAT 84–96
--- NOTE | 2024-11-29 10:58 | ED.GENADUL_ITS ---
Discharge Plan Disposition Patient Disposition: Admit to [facility] Condition: Stable Discharge Details Clinical Impression: Kidney stone, Splenic infarct Primary Care Provider: Sarah Weldon ED Provider: Cosme Gao [place] Meds and New Rx's Prescriptions: No Action fluticasone propionate 50 mcg/actuation spray,suspension 2 spray intranasal DAILY Qty: 16 2RF Rx Instructions: administer into each nostril estradiol 0.01 % (0.1 mg/gram) cream 1 g vaginal DAILY Qty: 42.5 5RF Rx Instructions: do daily until seen by Dr Smith again methenamine hippurate 1 gram tablet 1 g PO BID Qty: 180 3RF polyethylene glycol 3350 [Miralax] 17 gram/dose powder 17 g PO BID PRN (Reason: laxative effect) Qty: 238 4RF mirabegron [Myrbetriq] 50 mg tablet extended release 24 hr 50 mg PO DAILY Qty: 90 4RF insulin glargine [Lantus Solostar U-100 Insulin] 100 unit/mL (3 mL) insulin pen See Rx Instructions subcut BID Qty: 60 7RF Rx Instructions: 40 Unit subcutaneously a day; (DME) pen needle, diabetic [BD Ultra-Fine Mini Pen Needle] 31 gauge x 3/16 needle See Rx Instructions .ROUTE .MEDSUPPLY Qty: 90 4RF Rx Instructions: Daily E11.9 (DME) blood-glucose meter [FreeStyle Lite Meter] Kit See Rx Instructions .Route Qty: 1 0RF Rx Instructions: 3 times daily testing E11.9 Creon 24,000-76,000 -120,000 unit capsule,delayed release(DR/EC) 1 cap PO TID Qty: 270 4RF Rx Instructions: administer with meals and/or snacks Ordered by Opal Ontiveros 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 05/29/23. -hb triamcinolone acetonide 0.1 % cream 1 applic TP DAILY PRN (Reason: irritation) Qty: 80 0RF quetiapine 50 mg tablet 50 mg PO BID Qty: 180 5RF (DME) pen needle, diabetic [BD Ultra-Fine Mini Pen Needle] 31 gauge x 3/16 needle See Rx Instructions .ROUTE .MEDSUPPLY Qty: 200 4RF Rx Instructions: use one BID E11.9 celecoxib 100 mg capsule 100 mg PO BID Qty: 180 2RF pregabalin 25 mg capsule 25 mg PO BID Qty: 180 3RF clonazepam 0.5 mg tablet 0.5 mg PO BID Qty: 180 3RF (DME) lancets [FreeStyle Lancets] 28 gauge misc See Rx Instructions .ROUTE .MEDSUPPLY Qty: 300 5RF Rx Instructions: 3 times daily testing E11.9 (DME) FreeStyle Test Strip See Rx Instructions .Route Qty: 300 4RF Rx Instructions: 3 times daily E11.9 tamsulosin 0.4 mg capsule 0.4 mg PO DAILY Qty: 13 0RF Rx Instructions: take one daily for 14 total days or until you pass your kidney stone ketorolac 10 mg tablet 10 mg PO Q8H PRN (Reason: pain) Qty: 14 0RF Rx Instructions: maximum total duration of 5 days from all oral, intranasal, or parenteral formulations HPI General Mode of arrival: ambulatory . Date/Time Provider Initiated Documentation: 11/29/24 10:38 . Limitations to Documentation: no limitations . Information obtained by: patient . History of Present Illness 79 year old F presents to the emergency department with the chief complaint of dysuria, described as moderate, Patient started experiencing this day(s) (7) and it has been constant. No relieving factors improve symptom(s), No exacerbating factors reported . Patient notes denies chest pain, fever/chills and shortness of breath. Related Data Home Medications ?Medication ?Instructions ?Recorded ?Confirmed pen needle, diabetic 31 gauge x #90 ea 10/31/22 3/16 (BD Ultra-Fine Mini Pen Needle) blood-glucose meter (FreeStyle #1 ea 04/03/23 11/29/24 Lite Meter kit) polyethylene glycol 3350 17 17 g PO BID PRN laxative e ffect 04/23/23 11/29/24 gram/dose oral powder (Miralax) #238 grams Creon 24,000-76,000-120,000 unit 1 cap PO TID #270 cap s 05/30/23 11/29/24 capsule,delayed release (ylnfvw-lkxcpcwx-bmusikt) estradiol 0.01% (0.1 mg/gram) 1 g vaginal DAILY #42.5 grams 06/21/23 11/29/24 vaginal cream triamcinolone acetonide 0.1 % 1 applic topical DAILY P RN 06/28/23 11/29/24 topical cream irritation #80 grams fluticasone propionate 50 2 spray intranasal DAILY #16 grams 07/16/23 11/29/24 mcg/actuation nasal spray,suspension methenamine hippurate 1 gram tablet 1 g PO BID #180 ta b-caps 03/21/24 11/29/24 quetiapine 50 mg tablet 50 mg PO BID #180 tabs 06/1311/29/24 pen needle, diabetic 31 gauge x #200 ea 06/18/2411/29 (BD Ultra-Fine Mini Pen Needle) celecoxib 100 mg capsule 100 mg PO BID #180 caps 08/0611/29/24 Held on 11/24/24. Instructions: Resume on 11/28/24. don't take while taking ketorolac pregabalin 25 mg capsule 25 mg PO BID #180 caps 09/0811/29/24 mirabegron 50 mg tablet,extended 50 mg PO DAILY #90 ta bs 09/17/24 11/29/24 release 24 hr (Myrbetriq) clonazepam 0.5 mg tablet 0.5 mg PO BID #180 tab-caps 09/22/24 11/29/24 insulin glargine 100 unit/mL (3 See Rx Instructions lamar bcut BID #60 10/20/24 11/29/24 mL) subcutaneous pen (Lantus mL Solostar U-100 Insulin) blood sugar diagnostic (FreeStyle #300 ea 11/03/24 Test strips) lancets 28 gauge (FreeStyle #300 ea 11/03/24 11/29/24 Lancets) ketorolac 10 mg tablet 10 mg PO Q8H PRN pain #14 ta bs 11/24/24 11/29/24 tamsulosin 0.4 mg capsule 0.4 mg PO DAILY #13 caps 11/29/24 Previous Rx's ?Medication ?Instructions ?Recorded pen needle, diabetic 31 gauge x #90 ea 10/31/2207/20 (BD Ultra-Fine Mini Pen Needle) blood-glucose meter (FreeStyle #1 ea 04/03/23 Lite Meter kit) polyethylene glycol 3350 17 17 g PO BID PRN laxative e ffect 04/23/23 gram/dose oral powder (Miralax) #238 grams Creon 24,000-76,000-120,000 unit 1 cap PO TID #270 cap s 05/30/23 capsule,delayed release (lbmuzi-qqfrcuxn-valsjmz) estradiol 0.01% (0.1 mg/gram) 1 g vaginal DAILY #42.5 grams 06/21/23 vaginal cream triamcinolone acetonide 0.1 % 1 applic topical DAILY P RN 06/28/23 topical cream irritation #80 grams fluticasone propionate 50 2 spray intranasal DAILY #16 grams 07/16/23 mcg/actuation nasal spray,suspension methenamine hippurate 1 gram tablet 1 g PO BID #180 ta b-caps 03/21/24 quetiapine 50 mg tablet 50 mg PO BID #180 tabs 06/13 pen needle, diabetic 31 gauge x #200 ea 06/18/2407/20 (BD Ultra-Fine Mini Pen Needle) celecoxib 100 mg capsule 100 mg PO BID #180 caps 08/06 08/29 Held on 11/24/24. Instructions: Resume on 11/28/24. don't take while taking ketorolac pregabalin 25 mg capsule 25 mg PO BID #180 caps 09/08 mirabegron 50 mg tablet,extended 50 mg PO DAILY #90 ta bs 09/17/24 release 24 hr (Myrbetriq) clonazepam 0.5 mg tablet 0.5 mg PO BID #180 tab-caps 09/22/24 insulin glargine 100 unit/mL (3 See Rx Instructions lamar bcut BID #60 10/20/24 mL) subcutaneous pen (Lantus mL Solostar U-100 Insulin) blood sugar diagnostic (FreeStyle #300 ea 11/03/24 Test strips) lancets 28 gauge (FreeStyle #300 ea 11/03/24 Lancets) ketorolac 10 mg tablet 10 mg PO Q8H PRN pain #14 ta bs 11/24/24 tamsulosin 0.4 mg capsule 0.4 mg PO DAILY #13 caps Allergies Allergy/AdvReac Type Severity Reaction Status Date / Time ibuprofen AdvReac Mild Stomach Verified 11/29/24 10:43 cramps General Stated Complaint: Abd Prob ANDER: 3 Review of Systems All systems reviewed & are unremarkable except as noted in HPI and below Constitutional Constitutional: Denies chills, Denies fever(s) and Denies weakness Cardiovascular Cardiovascular: Denies chest pain and Denies dyspnea Respiratory Respiratory: Denies cough and Denies dyspnea Gastrointestinal Gastrointestinal: Reports abdominal pain, Reports nausea and Denies vomiting Genitourinary Genitourinary: Reports dysuria Neurologic Neurologic: Denies weakness Psychiatric Psychiatric: Denies depression Exam Const General: no acute distress Orientation: alert HENIA Head: normal to inspection Ears: external ears normal General nose exam: external nose normal Mouth: moist mucous membranes Neck Neck: normal visual inspection Resp Effort & Inspection: normal respiratory effort and able to speak in complete sentences Cardio Rate: regular rate GI Palpation: soft, not firm, no guarding and tender Skin General skin exam: no rashes or lesions noted Neuro General: patient alert and patient oriented x3 Extrem General: normal to inspection Psych Mental Status: mental status grossly normal Course Vital Signs Vital signs: Vital Signs Temperature 36.6 C 11/29/24 10:40 Pulse 99 H 11/29/24 10:40 Respiratory Rate 13 11/29/24 10:40 Blood Pressure 106/58 L 11/29/24 10:40 Pulse Oximetry 92 11/29/24 10:40 Temperature 36.6 C 11/29/24 10:47 Temperature Source Tympanic 11/29/24 10:47 Pulse 99 H 11/29/24 10:47 Respiratory Rate 13 11/29/24 10:47 Blood Pressure 106/58 L 11/29/24 10:47 Blood Pressure Position Sitting 11/29/24 10:47 Pulse Oximetry 92 11/29/24 10:47 Oxygen Delivery Method Room Air 11/29/24 10:47 Oxygen Flow Rate 0 11/29/24 10:47 Pain Level 3 11/29/24 10:47 Medical Decision Making 79-year-old female with history of pancreatic cancer on chemotherapy and known splenic infarcts who was seen on the and diagnosed with a left kidney stone comes in with continued lower abdominal discomfort and also now has painful urination. She denies any fevers or vomiting though has had nausea. She denies any chest pain or difficulty breathing. She is stable on arrival. Her abdomen is soft and nondistended. She has no upper abdominal discomfort, does have ten derness in the left lower quadrant without guarding. Given her complaints now with dysuria we will check a UA and also check a CBC, CMP and lipase and reimage her abdomen pelvis to see if her stone is still present also to evaluate for new infarcts of the spleen LFTs continue to be elevated. UA with bacteria and white cells, negative nitrites. Obtain another urine sample for culture as first had epithelial cells. CTA finally read and shows continued splenic infarct which is on prior imaging. I also note question obstructed stent in the proximal duodenum without dilation of the stomach, also no pneumobilia with mild intrahepatic ductal dilation with question of an occlusion of the common bile stent which the radiologist says was on the prior CT but reviewed the report of the prior CT and no note of this was made. Also note renal parenchymal enhancement with continued 8 mm distal left UVJ stone, and enhancing mucosa of the bladder and bladder wall thickening. Patient remained hemodynamically stable. I push images to [facility] and requested transfer given his abnormal CT findings. I have ordered Zosyn for the patient as well given the pneumobilia and the question of a possible infected kidney stone Spoke with Dr. Bolaños from urology who wasn't concerned stone was infected and didn't feel emergent transfer for intervention indicated at this time. I also spoke with GI Dr. Meza who reveiwed images and labs and did not feel emergent transfer was indicated based on imaging results and bilirbuin being normal.I also spoke with Dr. Shant koroma about the splenic infarcts who did not feel patient needed anticoagulation at this time. Patient still having nausea, given it's bene 5-6 days feel it is less likely to pass on it's own. I spoke with Dr. Vergara who said he was available Sunday if patient hasn't passed the stone. Will discuss with hospitalist about admission Differential Diagnosis Differential Diagnosis: Kidney stone, infected stone Medical Records Medical records reviewed: Yes I reviewed the patient's medical records. Quality:SDOH Health Related Social Needs: Health related social needs daily activities Health related social needs details has steady housing , not worried about it. PFSH All Active Problems (Updated 11/29/24 @ 17:02 by Cosme Gao MD) Splenic infarct (Acute) Kidney stone (Chronic) Calculus of left ureter (Acute) Abdominal pain (Acute) Elevated liver enzymes (Acute) Diabetes mellitus (Chronic) Nausea & vomiting (Acute) DIMITRY (acute kidney injury) (Acute) Impaired functional mobility, balance, gait, and endurance (Acute) Peripheral neuropathy (Acute) Diabetic amyotrophy (Acute) Peroneal neuropathy (Acute) Heart murmur (Acute) Balance problem (Acute) Foot drop, left (Acute) Advanced care planning/counseling discussion (Acute) Low back pain potentially associated with radiculopathy (Acute) Hip pain (Acute) Diabetes mellitus with neuropathy (Acute) Nail dystrophy (Acute) Memory changes (Acute) Mass, brain (Acute) MRI 04/17/23 3mm small enhancing focus ? mets Adenocarcinoma of pancreas (Acute) bx 03/29 at [facility] Hypertension (Chronic) Acute on chronic anemia (Acute) Liver failure, acute (Acute) Hyperbilirubinemia (Acute) Thrombocytopenia (Acute) Transaminitis (Acute) Jaundice (Acute) Anxiety (Chronic) chronic benzodiazipine use 03/27/17 FLOR-7 SCORE=7 07/02/17 FLOR-7 SCORE=13 Diverticulosis of colon without diverticulitis (Chronic) Lichen planus (Chronic) mouth OAB (overactive bladder) (Acute) Medical History Nuclear age-related cataract, left eye Ingrown nail Osteoporosis Insomnia Hematuria Neg work-up 2013. UA not meeting RBC in years since for repeat Right hip pain (03/27/17) Hypercholesterolemia Generalized osteoarthrosis low back pain; xray + DJD Ingrowing toenail (04/14/14) Hematuria unspeficified; asymptomatic; neg W/U Fatigue 06/26/12 Ingrown toenail 04/14/14 Urinary tract infectious disease recurrent Surgical History Nuclear age-related cataract, right eye History of cataract surgery History of bladder repair surgery Status post laparoscopic hysterectomy H/O bladder repair surgery sling S/P laparoscopic hysterectomy 05/07/83 partial, dysmenorrhea Hysterectomy, Laproscopic (~1983) partial; dysmenorrhea Bladder Surgery (~1999) SLING Family History Mother , age 92 Dementia Father , age 78 Cancer Brother Asthma Brother ALS (amyotrophic lateral sclerosis) Brother No problems noted. Maternal Grandfather , age 50 Black lung disease Paternal Grandfather , age 65 Black lung disease Maternal Grandmother , age 80 No problems noted. Paternal Grandmother , age 84 No problems noted. Son No problems noted. Son No problems noted. Social History Smoking/Tobacco Use Status: Former Tobacco Use tobacco type: cigarettes Quit Date: 05/07/97 Tobacco: How many years used: 30 Second Hand Exposure: Yes Smoking risk assessment performed?: Yes Alcohol Intake: current Alcohol Intake frequency: holidays/special occasions only Drug use: Never Substance use type: does not use Adopted: No Household members: spouse Housing: house Number of Children: 2 number of grandchildren: 4 Communication Needs: None Education Level: college Details: A.S. 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 Pets and animals: No Sexually active: No Do you think of yourself as: straight/heterosexual Current gender identity: female What is your relationship status?: How often do you talk on the phone with friends or family?: three or more times per week How often do you get together with friends or relatives?: decline to answer How often do you attend anglican or confucianism services?: 4 or more times per year Do you belong to any clubs or organized social groups?: yes Panel score (0-1 are the most socially isolated patients): 4 What type of physical activity do you participate in: walking, aerobic, bicycling and swimming Duration: 30-45 minutes/day Frequency: 3-4 times per week Lorraine/Cheondoism: Congregation Special lorraine needs: No Seatbelt use: always Helmet use: Yes Helmet use: always Drive intox or ride w/intox dray driver: No Firearms in home: Yes Do you feel safe at home: Yes Do you feel safe in your relationship?: Yes Victim of physical abuse: No Victim of emotional abuse: No Victim of sexual abuse: No Would you like helpful sources: No
[2024-11-29 11:20] LABS: Glucose Negative (Negative)
[2024-11-29] MEDS: Ondansetron 4 MG/2 ML VIAL IVP (11:48)
[2024-11-29 11:49] LABS: Abs Immature Grans 0.02 10^3/uL (0.0-0.06); HCT 26.8 % (36.0-46.0); HGB 9.1 g/dL (11.2-15.7); Immature Grans % 0.3 %; MCH 29.5 pg (27.0-33.0); MCHC 34.0 % (32.0-36.0); MCV 87 fL (80-95); MPV 10.1 fL (8.0-11.0); Platelet Count 287 10^3/uL (130-400); RBC 3.08 10^6/uL (3.93-5.22); RDW 14.6 % (11.7-14.6); RDW-SD 44.6 fL; WBC 6.52 10^3/uL (4.4-10.8)
[2024-11-29 11:53] LABS: C & S Indicated? No
[2024-11-29 12:11] LABS: ALT 205 U/L (14-59); AST 200 U/L (15-37); Albumin 2.1 g/dL (3.4-5.0); Alkaline Phosphatase 1056 U/L (46-116); Anion Gap 7.6 mmol/L (3-11); BUN 33 mg/dL (7-18); Bilirubin, Direct 0.2 mg/dL (0.0-0.2); Bilirubin, Total 0.6 mg/dL (0.2-1.0); CO2 27.4 mmol/L (21.0-32.0); Calcium 8.4 mg/dL (8.5-10.1); Chloride 100 mmol/L (98-107); Estimated GFR 41.57 (mL/min/1.73m2); Glucose 280 mg/dL (74-106); Magnesium 1.9 mg/dL (1.8-2.4); Potassium 4.6 mmol/L (3.5-5.1); Sodium 135 mmol/L (136-145); Total Protein 6.6 g/dL (6.4-8.2)
[2024-11-29 12:12] LABS: Lipase < 6 U/L (<78)
[2024-11-29 12:30] LABS: INR 1.0 (0.9-1.1); PTT Activated 30.3 sec (20.6-30.2); Prothrombin Time 10.3 sec (9.1-11.1)
[2024-11-29] MEDS: Normal Saline - Diluent 50 ML VIAL IJ (12:47)
--- NOTE | 2024-11-29 13:15 | DI.RAD_ITS ---
Exam(s) XR CHEST 1V IN DI DEPT EXAM: XR CHEST 1V IN DI DEPT CLINICAL HISTORY: port eval TECHNIQUE: 2D digital imaging was performed. COMPARISON: No exams were available for comparison FINDINGS: There is a port over the right upper chest with the tip in lower SVC. There are overlying monitoring leads. LUNGS: Clear. No pleural abnormality seen. HEART: Normal size. AORTA: Normal diameter. BONES: Scoliosis. Degenerative changes. Soft tissues: Unremarkable. IMPRESSION: Satisfactory placement of port. No acute pulmonary abnormality. DATA REPOSITORY: RADIATION DOSE DELIVERED:
--- NOTE | 2024-11-29 14:00 | DI.CT_ITS ---
Exam(s) CT THORAX ABD/PEL CTA EXAM: CT THORAX ABD/PEL CTA CLINICAL HISTORY: left abdomen and flank pain. TECHNIQUE: Imaging Protocol: Axial CT angiography was performed with multi- slice acquisition and multi-planar and/or 3D reconstructions. CONTRAST MATERIAL: Intravenous: Omnipaque 350 Contrast volume:98 ml Oral: / no COMPARISON: CT CT CHEST/ABD/PEL W from 02/14/[address] CHEST/ABD/PEL W from 08/15/[address] ABDOMEN PELVIS W from 11/24/2024 FINDINGS: CHEST: Pulmonary Arteries: No evidence of filling defect to suggest pulmonary emboli. Tracheobronchial tree: Patent where visualized. Mediastinum and Aislinn: No dominant adenopathy or fluid collection. Pulmonary parenchyma: No consolidation or dominant measurable mass. Scattered calcified granulomas. Stable small nodule at the right lung base. Pleura: No effusion or pneumothorax. Heart: The heart is not dilated. No coronary artery calcifications are seen. Aorta: Thoracic aorta non-dilated. Minimal atherosclerotic changes. Bones: Normal. Tubes, Catheters, and Lines: Right-sided port in place with tip in the upper right atrium. ABDOMEN AND PELVIS: Abdomen: Celiac axis occluded proximally. Splenic artery quite diminutive. Proximal portal vein severely attenuated. Splenic vein not visualized until the region of the hilum. Superior mesenteric a artery: No evidence of occlusion or significant stenosis. Renal Arteries: No evidence of occlusion or significant stenosis. There is a single renal artery perfusing each kidney. Aorta: No evidence of occlusion or significant stenosis. No aneurysm or dissection. Pelvis: Iliac Arteries: No evidence of occlusion or significant stenosis. Common Femoral Arteries: No evidence of occlusion or significant stenosis. ABDOMEN: Liver: Normal density. No measurable mass. Portal, Superior Mesenteric, and Splenic Veins: Unremarkable. Gallbladder and Biliary Tract: Pneumobilia again noted. Biliary stent again noted containing debris. Pancreas: Body and tail are atrophic. No pancreatic head mass. Spleen: Stable appearance of large splenic infarct. Adrenals: No masses seen. Kidneys: Normal size, contour and axis. Stable appearance of moderate left hydronephrosis secondary to a 8 millimeter stone at the ureterovesical junction. No masses seen. Bowel: Stent again noted from antrum of stomach through descending duodenum.. Appendix is unremarkable. Large quantity of stool throughout the colon Peritoneal Cavity: No ascites, collection or mesenteric inflammatory response. Lymph Nodes: Within normal limits. Bones: Degenerative changes in the lumbar spine. Soft Tissues: Unremarkable. PELVIS: Bladder: Diffusely thick-walled bladder with wall enhancement which could indicate infection. The previously noted ureterovesical junction calculus remains present. Bladder is nearly empty. Reproductive Organs: Hysterectomy. Lymph Nodes: Within normal limits. Bones: Within normal limits. IMPRESSION: No evidence of pulmonary emboli. Stable appearance of moderate left hydronephrosis secondary to an 8 millimeter calculus at the ureterovesical junction. The bladder wall is diffusely thick which could be secondary to inflammation or infection. Stable appearance of biliary and duodenal stents. 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 Stable appearance severely attenuated portal vein and splenic veins. Stable appearance of splenic infarct. The preliminary [facility] report was reviewed. RADIATION DOSE DELIVERED: Total DLP DATA REPOSITORY: All CT scans at this facility are submitted to the National Radiology Data Registry (NRDR) Dose Index Registry (DIR) with the [employer] (ACR). RADIATION OPTIMIZATION: All CT scans at this facility use at least one of these dose optimization techniques: automated exposure control; mA and/or kV adjustment per patient size (includes targeted exams where dose is matched to clinical indication); or iterative reconstruction.
--- NOTE | 2024-11-29 15:05 | DI.[facility]_ITS ---
PROCEDURE INFORMATION: Exam: XR Chest Exam date and time: 11/29/2024 1:34 PM Age: 79 years old Clinical indication: Device placement; Other: Power port; Prior surgery; Surgery date: 6+ months; Surgery type: Port placement TECHNIQUE: Imaging protocol: Radiologic exam of the chest. Views: 1 view. COMPARISON: CT THORAX ABD/PEL CTA 29/11/2024 12:41 FINDINGS: Tubes, catheters and devices: Right IJ catheter with the tip near the SVC RA junction. EKG wires overlie the chest. Lungs: Unremarkable. No consolidation. Pleural spaces: Unremarkable. No pleural effusion. No pneumothorax. Heart/Mediastinum: Unremarkable. No cardiomegaly. Bones/joints: Multilevel degenerative scoliotic changes of the spine. IMPRESSION: 1. Right IJ line in place with the tip near the SVC RA junction. 2. No acute cardiopulmonary findings. Dictated and Authenticated by: Africa Hoskins MD. Orderin Murray Aguiar MD
[2024-11-29] MEDS: Prochlorperazine 10 MG/2 ML VIAL 5 MG IVP (15:28)
--- NOTE | 2024-11-29 15:39 | DI.VRAD_ITS ---
PROCEDURE INFORMATION: Exam: CTA Chest With Contrast CTA Abdomen and Pelvis With Contrast Exam date and time: 11/29/2024 12:41 PM Age: 79 years old Clinical indication: Other: Left abdomen and flank pain TECHNIQUE: Imaging protocol: Computed tomographic angiography of the chest with contrast. Exam focused on the arteries. Computed tomographic angiography of the abdomen and pelvis with contrast. Exam focused on the arteries. 3D rendering (Not supervised by radiologist): MIP and/or 3D reconstructed images were created by the technologist. Radiation optimization: All CT scans at this facility use at least one of these dose optimization techniques: automated exposure control; mA and/or kV adjustment per patient size (includes targeted exams where dose is matched to clinical indication); or iterative reconstruction. Contrast material: OMNI 350; Contrast volume: 100 ml; Contrast route: INTRAVENOUS (IV); COMPARISON: CT CHEST/ABD/PEL W 08/15/2024 1:13 PM FINDINGS: Tubes, catheters and devices: MediPort terminates in the superior vena cava VASCULATURE: Pulmonary arteries: No evidence of pulmonary embolus to the segmental level. Aorta: No aneurysm of the aorta. No dissection of the aorta. 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 Renal arteries: No occlusion or significant stenosis. Right iliac arteries: No occlusion or significant stenosis. Left iliac arteries: No occlusion or significant stenosis. CHEST: Lungs: Unremarkable. No consolidation. No masses. Pleural spaces: Unremarkable. No pneumothorax. No pleural effusion. Heart: Unremarkable. No cardiomegaly. No pericardial effusion. ABDOMEN AND PELVIS: Liver: Heterogeneous liver could represent fatty infiltration or infiltrative metastatic disease. Gallbladder and biliary ducts: Pneumobilia. Mild intrahepatic ductal dilatation. Stent in the common duct. Soft tissue density in the proximal stent.. Air in the mid stent and soft tissue density in the distal stent. This stent may be obstructed . This was present on the prior study. Pancreas: Pancreatic atrophy was present on the prior study. Spleen: Again noted is heterogeneous spleen with large area of hypoattenuation. This may represent infarction. It was present on the prior study. Adrenal glands: Unremarkable. No mass. Kidneys and ureters: Differential of renal parenchymal enhancement with the right enhancing more than the left. This was present on the prior study and may indicate differential in vascular supply to the left kidney. 3 cm simple cyst right kidney . No follow-up imaging recommended . Stable dilatation of the left collecting system. Stable dilatation of the left ureter. Again demonstrated 8 mm distal left ureteral calculus at the left UVJ.. Stomach and bowel: Stent in the proximal duodenum. It is filled with soft tissue density and may be obstructed (series 9, image [id number]). This was present on the prior study. No dilatation of the stomach. Constipation in the colon Appendix: No evidence of appendicitis. Intraperitoneal space: Unremarkable. No free air. No significant fluid collection. Urinary bladder: Enhancing mucosa in the bladder and bladder wall thickening may indicate infection. Reproductive: Unremarkable as visualized. Lymph nodes: Unremarkable. No enlarged lymph nodes. Bones/joints: Unremarkable. No acute fracture. Soft tissues: See Stomach and bowel finding. IMPRESSION: 1. No evidence of pulmonary embolus to the segmental level. 2. No aneurysm of the aorta. 3. No dissection of the aorta. 4. Stent in the proximal duodenum. It is filled with soft tissue density and may be obstructed (series 9, image [id number]). This was present on the prior study. No dilatation of the stomach. 5. 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 6. Stent in the common duct. Soft tissue density in the proximal stent.. Air in the mid stent and soft tissue density in the distal stent. This stent may be obstructed . This was present on the prior study. 7. Heterogeneous liver could represent fatty infiltration or infiltrative metastatic disease. 8. Differential of renal parenchymal enhancement with the right enhancing more than the left. This was present on the prior study and may indicate differential in vascular supply to the left kidney. 9. Stable dilatation of the left collecting system. Stable dilatation of the left ureter. Again demonstrated 8 mm distal left ureteral calculus at the left UVJ.. 10. Enhancing mucosa in the bladder and bladder wall thickening may indicate infection. Dictated and Authenticated by: Kaela Perdomo MD. Orderin Murray Aguiar MD
[2024-11-29] MEDS: PIPERACILLIN/TAZO 4.5 GM in Normal Saline 100 ML IVPB (16:05)
[2024-11-29] MEDS: MORPHine 10 MG/ML VIAL 2 MG IVP (16:30)
--- NOTE | 2024-11-29 17:40 | W.PM.HP.N ---
Date of service: 11/29/24 Time of Service: 17:40 Assessment and Plan Assessment and plan (1) Calculus of left ureter: Status: Acute Assessment and plan: Persistent stone in left UVJ, now 8mm per CT. Ms. Wick now having difficulty with oral intake and DIMITRY. I agree with admission for supportive care. Continue tamsulosin. Hold hippurate given renal impairment. Case discussed in ED with Dr. Vergara. Will consider stenting 12/01 if the stone does not pass. Morphine and antiemetics (2) DIMITRY (acute kidney injury): Status: Acute Assessment and plan: A/w recent ketoralac and some dehydration with vomiting and poor oral intake. No NSAIDs for now, taking fluids now, encourage PO Follow in AM (3) Splenic infarct: Status: Acute Assessment and plan: This is not new. Per covering heme/onc, they would consider anticoagulation, but primary oncology team aware of this and did not start treatment. Will defer to primary oncology team at this point. (4) Elevated liver enzymes: Status: Acute Assessment and plan: Severe transaminitis but this is not new. A/w pancreatic cancer. Labs were reviewed in ED with [facility] GI team who did not recommend addtional work up or transfer to tertiary care. (5) Adenocarcinoma of pancreas: Status: Acute Assessment and plan: Has had this for 2 years. Staging not clear per notes, lesion in brain but not clearly metastatic. s/p 2/3 cycles of gemcitabime for recurrence after initial treatment 2 years ago. This was her off week. (6) Acute on chronic anemia: Status: Acute Assessment and plan: moderate, stable from 11/27. Denies bleeding. Follow. (7) Diabetes mellitus: Status: Chronic Assessment and plan: Recent PCP notes reviewed. Will continue basal insulin and sliding scale. (8) DVT prophylaxis: Status: Acute Assessment and plan: enoxaparin (9) Constipation: Status: Acute Assessment and plan: schedule PEG and senna/colace, mag and bisocodyl prn (10) Discharge planning issues: Status: Acute Assessment and plan: observation for now. May need surgery if stone not passing. DNR/DNI confirmed. Palliative consult for continuity History of Present Illness History of Present Illness Chief Complaint: LLQ pain, stone Narrative: 79 yo F with pancreatic cancer on chemotherapy with gemcitabine, IDDM who was initially seen in the ED 11/24/24 with left abdominal/flank pain and diagnosed with left UVJ stone and sent home with ketoralac and tamsulosin. She returned today with persistent pain and vomiting. Pain is in LLQ to the left flank. Achy/crampy, coming in waves when it is severe. Associated with constant nausea and waves of vomiting. She hasn't been able to eat or drink much in the past few days. Ketoralac was helping but hasn't been able to take in the past 2 days. Also has burning with urination, concerned about a UTI. No fever/chills. No dia hematuria. No cough or SOB. Hasn't had a BM in a week. Review of Systems All systems reviewed & are unremarkable except as noted in HPI and below PFSH All Active Problems (Updated 11/29/24 @ 18:42 by Yung Hair) Constipation (Acute) Discharge planning issues (Acute) DVT prophylaxis (Acute) Splenic infarct (Acute) Kidney stone (Chronic) Calculus of left ureter (Acute) Abdominal pain (Acute) Elevated liver enzymes (Acute) Diabetes mellitus (Chronic) Nausea & vomiting (Acute) DIMITRY (acute kidney injury) (Acute) Impaired functional mobility, balance, gait, and endurance (Acute) Peripheral neuropathy (Acute) Diabetic amyotrophy (Acute) Peroneal neuropathy (Acute) Heart murmur (Acute) Balance problem (Acute) Foot drop, left (Acute) Advanced care planning/counseling discussion (Acute) Low back pain potentially associated with radiculopathy (Acute) Hip pain (Acute) Diabetes mellitus with neuropathy (Acute) Nail dystrophy (Acute) Memory changes (Acute) Mass, brain (Acute) MRI 04/17/23 3mm small enhancing focus ? mets Adenocarcinoma of pancreas (Acute) bx 03/29 at [facility] Hypertension (Chronic) Acute on chronic anemia (Acute) Liver failure, acute (Acute) Hyperbilirubinemia (Acute) Transaminitis (Acute) Jaundice (Acute) OAB (overactive bladder) (Acute) Lichen planus (Chronic) mouth Diverticulosis of colon without diverticulitis (Chronic) Anxiety (Chronic) chronic benzodiazipine use 03/27/17 FLOR-7 SCORE=7 07/02/17 FLOR-7 SCORE=13 Medical History (Updated 11/29/24 @ 18:42 by Yung Hair) Thrombocytopenia Nuclear age-related cataract, left eye Ingrown nail Osteoporosis Insomnia Hematuria Neg work-up 2013. UA not meeting RBC in years since for repeat Ingrowing toenail (04/14/14) Hematuria unspeficified; asymptomatic; neg W/U Fatigue 06/26/12 Ingrown toenail 04/14/14 Urinary tract infectious disease recurrent Right hip pain (03/27/17) Hypercholesterolemia Generalized osteoarthrosis low back pain; xray + DJD Surgical History Nuclear age-related cataract, right eye History of cataract surgery History of bladder repair surgery Status post laparoscopic hysterectomy H/O bladder repair surgery sling S/P laparoscopic hysterectomy 05/07/83 partial, dysmenorrhea Hysterectomy, Laproscopic (~1983) partial; dysmenorrhea Bladder Surgery (~1999) SLING Family History Mother , age 92 Dementia Father , age 78 Cancer Brother Asthma Brother ALS (amyotrophic lateral sclerosis) Brother No problems noted. Maternal Grandfather , age 50 Black lung disease Paternal Grandfather , age 65 Black lung disease Maternal Grandmother , age 80 No problems noted. Paternal Grandmother , age 84 No problems noted. Son No problems noted. Son No problems noted. Social History Smoking/Tobacco Use Status: Former Tobacco Use tobacco type: cigarettes Quit Date: 05/07/97 Tobacco: How many years used: 30 Second Hand Exposure: Yes Smoking risk assessment performed?: Yes Alcohol Intake: current Alcohol Intake frequency: holidays/special occasions only Drug use: Never Substance use type: does not use Adopted: No Household members: spouse Housing: house Number of Children: 2 number of grandchildren: 4 Communication Needs: None Education Level: college Details: A.S. 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 Pets and animals: No Sexually active: No Do you think of yourself as: straight/heterosexual Current gender identity: female What is your relationship status?: How often do you talk on the phone with friends or family?: three or more times per week How often do you get together with friends or relatives?: decline to answer How often do you attend zoroastrian or hinduism services?: 4 or more times per year Do you belong to any clubs or organized social groups?: yes Panel score (0-1 are the most socially isolated patients): 4 What type of physical activity do you participate in: walking, aerobic, bicycling and swimming Duration: 30-45 minutes/day Frequency: 3-4 times per week Lorraine/Confucianist: Cheondoism Special lorraine needs: No Seatbelt use: always Helmet use: Yes Helmet use: always Drive intox or ride w/intox team otr truck driver: No Firearms in home: Yes Do you feel safe at home: Yes Do you feel safe in your relationship?: Yes Victim of physical abuse: No Victim of emotional abuse: No Victim of sexual abuse: No Would you like helpful sources: No Additional Social history: lives with of 59 years [place] in [facility] Allergies and Home Medications Allergies Allergy/AdvReac Type Severity Reaction Status Date / Time ibuprofen AdvReac Mild Stomach Verified 11/29/24 10:43 cramps Home Medications ?Medication ?Instructions ?Recorded ?Confirmed ?Type pen needle, diabetic 31 gauge x #90 ea 10/31/22 11/29/24 Rx 3/16 (BD Ultra-Fine Mini Pen Needle) blood-glucose meter (FreeStyle #1 ea 04/03/23 11/29/24 Rx Lite Meter kit) polyethylene glycol 3350 17 17 g PO BID PRN laxative effect 04/23/23 11/29/24 Rx gram/dose oral powder (Miralax) #238 grams Creon 24,000-76,000-120,000 unit 1 cap PO TID #270 caps 05/30/23 11/29/24 Rx capsule,delayed release ([id number]-[id number]) estradiol 0.01% (0.1 mg/gram) 1 g vaginal DAILY #42.5 grams 06/21/23 11/29/24 Rx vaginal cream triamcinolone acetonide 0.1 % 1 applic topical DAILY PRN 06/28/23 11/29/24 Rx topical cream irritation #80 grams fluticasone propionate 50 2 spray intranasal DAILY #16 grams 07/16/23 11/29/24 Rx mcg/actuation nasal spray,suspension methenamine hippurate 1 gram tablet 1 g PO BID #180 tab-caps 03/21/24 11/29/24 Rx quetiapine 50 mg tablet 50 mg PO BID #180 tabs 06/13/24 11/29/24 Rx pen needle, diabetic 31 gauge x #200 ea 06/18/24 11/29/24 Rx 3/16 (BD Ultra-Fine Mini Pen Needle) celecoxib 100 mg capsule 100 mg PO BID #180 caps 08/28/24 11/29/24 Rx Held on 11/24/24. Instructions: Resume on 11/28/24. don't take while taking ketorolac pregabalin 25 mg capsule 25 mg PO BID #180 caps 09/08/24 11/29/24 Rx mirabegron 50 mg tablet,extended 50 mg PO DAILY #90 tabs 09/17/24 11/29/24 Rx release 24 hr (Myrbetriq) clonazepam 0.5 mg tablet 0.5 mg PO BID #180 tab-caps 09/22/24 11/29/24 Rx insulin glargine 100 unit/mL (3 See Rx Instructions subcut BID #60 10/20/24 11/29/24 Rx mL) subcutaneous pen (Lantus mL Solostar U-100 Insulin) blood sugar diagnostic (FreeStyle #300 ea 11/03/24 11/29/24 Rx Test strips) lancets 28 gauge (FreeStyle #300 ea 11/03/24 11/29/24 Rx Lancets) ketorolac 10 mg tablet 10 mg PO Q8H PRN pain #14 tabs 11/24/24 11/29/24 Rx tamsulosin 0.4 mg capsule 0.4 mg PO DAILY #13 caps 11/24/24 11/29/24 Rx Exam Narrative Exam Narrative: GEN: Alert and oriented x 4, pleasant and cooperative, gives linear history, but repeats herselft at times. No acute distress at rest. HEENT: Head atraumatic. Conjunctiva clear, no icterus. PEERL, EOMI. no rhinorrhea. MMM, OP benign. Neck is supple with no masses or lymphadenopathy, trachea midline LUNGS: CTAB with normal effort CV: RRR with 2/6 systolic murmur, gallops, or rubs. ABD: active bowel sounds, soft, nondistended. Mild suprapubic tenderness without guarding. No masses. EXT: no cyanosis, clubbing, or edema MSK: No joint redness or swelling NEURO: CN 2-12 grossly intact. Normal movement of 4 extremities. Normal speech and coordination. No tremor SKIN: No rashes or open wounds. PSYCH: normal mood and affect Results Imaging Chest x-ray: report reviewed (1. Right IJ line in place with the tip near the SVC RA junction. 2. No acute cardiopulmonary findings. ) Imaging Studies: CT C/A/P: 1. No evidence of pulmonary embolus to the segmental level. 2. No aneurysm of the aorta. 3. No dissection of the aorta. 4. Stent in the proximal duodenum. It is filled with soft tissue density and may be obstructed (series 9, image [id number]). This was present on the prior study. No dilatation of the stomach. 5. 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 6. Stent in the common duct. Soft tissue density in the proximal stent.. Air in the mid stent and soft tissue density in the distal stent. This stent may be obstructed . This was present on the prior study. 7. Heterogeneous liver could represent fatty infiltration or infiltrative metastatic disease. 8. Differential of renal parenchymal enhancement with the right enhancing more than the left. This was present on the prior study and may indicate differential in vascular supply to the left kidney. 9. Stable dilatation of the left collecting system. Stable dilatation of the left ureter. Again demonstrated 8 mm distal left ureteral calculus at the left UVJ.. 10. Enhancing mucosa in the bladder and bladder wall thickening may indicate infection. Labs 11/29/24 11:40 11/29/24 11:40 Labs: Laboratory Results - last 24 hr 11/29/24 11/29/24 11/29/24 10:47 11:40 12:17 WBC 6.52 RBC 3.08 L Hgb 9.1 L Hct 26.8 L MCV 87 MCH 29.5 MCHC 34.0 RDW 14.6 Plt Count 287 MPV 10.1 Immature Gran % 0.3 Neutrophils % 87.6 Lymphocytes % 8.1 Monocytes % 3.1 Eosinophils % 0.6 Basophils % 0.3 Nucleated RBC % 0.0 Absolute Neutrophils 5.71 Absolute Lymphocytes 0.53 L Absolute Monocytes 0.20 Absolute Eosinophils 0.04 Absolute Basophils 0.02 PT 10.3 INR 1.0 APTT 30.3 H Sodium 135 L Potassium 4.6 Chloride 100 Carbon Dioxide 27.4 Anion Gap 7.6 BUN 33 H Creatinine 1.3 H Est GFR (CKD-EPI 2020) 41.57 Glucose 280 H Calcium 8.4 L Magnesium 1.9 Total Bilirubin 0.6 Conjugated Bilirubin 0.2 AST 200 H ALT 205 H Alkaline Phosphatase 1056 H Total Protein 6.6 Albumin 2.1 L Lipase < 6 Urine Color Yellow Urine Clarity Sl Cloudy Urine pH 5.5 Ur Specific [place] 1.025 Urine Protein 100 H Urine Ketones Trace H Urine Blood Moderate H Urine Nitrite Negative Urine Bilirubin Negative Urine Urobilinogen 0.2 Ur Leukocyte Esterase Trace H Urine RBC 10-20 H Urine WBC 3-5 Ur Epithelial Cells Many Urine Crystals Negative Urine Bacteria Many Urine Casts Negative Urine Mucus Moderate Ur Culture Indicated? No Urine Glucose Negative Last Vital Signs Temp 36.6 C 11/29/24 10:47 Pulse 99 H 11/29/24 10:47 Resp 13 11/29/24 10:47 BP 106/58 L 11/29/24 10:47 Pulse Ox 92 11/29/24 10:47 Time Spent Time spent with Patient: >75 minutes Time was spent: preparing to see the patient(eg.review tests), obtaining and/or reviewing separately otained hiistory, ordering medications,tests, procedures, referring, communicating with other health care analyst, indepentently interpreting results, counseling the patient and care coordination
[2024-11-29] MEDS: Normal Saline 1,000 ML 125 ML IV (19:04)
--- NOTE | 2024-11-29 20:39 | W.PC.ACHO ---
Registration Status: ADM ASHLEY Primary Language: Preferred Language: Cameroonian ED Information & Data Chief Complaint Abd Prob 11/29/24 11:02 Triage Note Pt arrives to ED c/o abd 11/29/24 10:40 pain x approx. 1 wk. Pt endorses nausea, no vomiting . Last BM = 5 days ago per pt. Pt was seen on Sunday and dx w/ kidney stones and fecal impaction. Medical / Surgical History (Last Updated 11/29/24 @ 18:34 by Yung Hair) Thrombocytopenia Nuclear age-related cataract, left eye Ingrown nail Osteoporosis Insomnia Hematuria Right hip pain (03/27/17) Hypercholesterolemia Generalized osteoarthrosis Ingrowing toenail (04/14/14) Hematuria Fatigue Ingrown toenail Urinary tract infectious disease (Last Reviewed 11/29/24 @ 17:50 by Yung Hair) Nuclear age-related cataract, right eye History of cataract surgery History of bladder repair surgery Status post laparoscopic hysterectomy H/O bladder repair surgery S/P laparoscopic hysterectomy Hysterectomy, Laproscopic (~1983) Bladder Surgery (~1999) Most Recent Vital Signs Temperature 36.6 C 11/29/24 10:47 Temperature Source Tympanic 11/29/24 10:47 Pulse 86 11/29/24 19:50 Pulse 97 H 11/29/24 20:00 Respiratory Rate 21 11/29/24 20:00 Blood Pressure 155/47 H 11/29/24 19:01 Blood Pressure Mean 83 11/29/24 19:01 Blood Pressure Position Sitting 11/29/24 10:47 Pulse Oximetry 92 11/29/24 19:50 Oxygen Delivery Method Room Air 11/29/24 10:47 Oxygen Flow Rate 0 11/29/24 10:47 Pain Level 8 11/29/24 16:30 Allergies ibuprofen Adverse Reaction (Mild, Verified 11/29/24 10:43) Stomach cramps Precautions Isolation Fall precaution 11/29/24 10:46 Active Medications Generic Name Dose Route Start Last Admin Trade Name Freq PRN Reason Stop Dose Admin Sodium Chloride 1,000 mls @ 125 mls/hr 11/29/24 17:00 11/29/24 19:04 Saline 1000ml Bag IV 125 mls/hr INFUSION SYDNI Administration Morphine Sulfate 2 mg 11/29/24 15:51 11/29/24 16:30 Morphine 10 Mg/Ml Vial IVP 2 mg DIRECTED PRN Administration Sodium Chloride 0 ml 11/29/24 20:00 11/29/24 20:09 Normal Saline Flush 10 Ml Syr IVP Not Given BID SYDNI Sodium Chloride 50 ml 11/29/24 13:00 11/29/24 12:47 Normal Saline - Diluent 50 Ml Vial IJ 50 ml .FOR DI USE SYDNI Administration IV IV Catheter Type [Right Medial Saline [place]] Diet Orders Category Date Time Status Diabetes Consistent CHO [DIET] Nutrition 11/30/24 Breakfast Ordered Diagnostics 11/29/24 11/29/24 11/29/24 Range/Units 12:17 11:40 10:47 WBC 6.52 (4.4-10.8) 10^3/uL RBC 3.08 L (3.93-5.22) 10^6/uL Hgb 9.1 L (11.2-15.7) g/dL Hct 26.8 L (36.0-46.0) % MCV 87 (80-95) fL MCH 29.5 (27.0-33.0) pg MCHC 34.0 (32.0-36.0) % RDW 14.6 (11.7-14.6) % Plt Count 287 (130-400) 10^3/uL MPV 10.1 (8.0-11.0) fL Immature Gran % 0.3 % Neutrophils % 87.6 % Lymphocytes % 8.1 % Monocytes % 3.1 % Eosinophils % 0.6 % Basophils % 0.3 % Nucleated RBC % 0.0 (0.0-0.3) % Absolute Neutrophils 5.71 (1.2-6.7) 10^3/uL Absolute Lymphocytes 0.53 L (1.2-3.4) 10^3/uL Absolute Monocytes 0.20 (0.1-0.8) 10^3/uL Absolute Eosinophils 0.04 (0.0-0.7) 10^3/uL Absolute Basophils 0.02 (0.0-0.2) 10^3/uL PT 10.3 (9.1-11.1) sec INR 1.0 (0.9-1.1) APTT 30.3 H (20.6-30.2) sec Sodium 135 L (136-145) mmol/L Potassium 4.6 (3.5-5.1) mmol/L Chloride 100 (98-107) mmol/L Carbon Dioxide 27.4 (21.0-32.0) mmol/L Anion Gap 7.6 (3-11) mmol/L BUN 33 H (7-18) mg/dL Creatinine 1.3 H (0.55-1.02) mg/dL Est GFR (CKD-EPI 2020) 41.57 (mL/min/1.73m2) Glucose 280 H (74-106) mg/dL Calcium 8.4 L (8.5-10.1) mg/dL Magnesium 1.9 (1.8-2.4) mg/dL Total Bilirubin 0.6 (0.2-1.0) mg/dL Conjugated Bilirubin 0.2 (0.0-0.2) mg/dL AST 200 H (15-37) U/L ALT 205 H (14-59) U/L Alkaline Phosphatase 1056 H (46-116) U/L Total Protein 6.6 (6.4-8.2) g/dL Albumin 2.1 L (3.4-5.0) g/dL Lipase < 6 (<78) U/L Urine Color Yellow (Yellow) Urine Clarity Sl Cloudy (Clear) Urine pH 5.5 (5-8) Ur Specific [place] 1.025 (1.005-1.025) Urine Protein 100 H (Neg-Trace) mg/dL Urine Ketones Trace H (Negative) mg/dL Urine Blood Moderate H (Negative) Urine Nitrite Negative (Negative) Urine Bilirubin Negative (Negative) Urine Urobilinogen 0.2 (Up to 0.2) mg/dL Ur Leukocyte Esterase Trace H (Negative) Urine RBC 10-20 H (0-2) HPF Urine WBC 3-5 (0-5) HPF Ur Epithelial Cells Many (Negative) HPF Urine Crystals Negative (Negative) HPF Urine Bacteria Many (Negative) HPF Urine Casts Negative (Negative) LPF Urine Mucus Moderate (Negative) Ur Culture Indicated? No Urine Glucose Negative (Negative) mg/dL 11/29/24 16:00 Urine Culture - Pending Urine - Voided Intake and Output - 24 Hour Total 11/29/24 10:37 thru 11/29/24 16:44 Intake Total 100 Balance 100 Weight 58.967 kg Intake: IV 100 Falls Risk Assessment History of Falls Previous History 11/29/24 15:57 Contributing Factors Impairments 11/29/24 15:57 Ambulatory Aids Uses ambulatory device + 11/29/24 15:57 Tubes/Lines With any additional score 11/29/24 15:57 Gait Evaluation W/any additional score 11/29/24 15:57 Cognition No cognitive impairment 11/29/24 15:57 Fall Total Score 88 11/29/24 15:57 Level of Risk Maximum Risk 11/29/24 15:57 Problems (Last Updated 11/29/24 @ 18:34 by Yung Hair) Constipation (Acute) Discharge planning issues (Acute) DVT prophylaxis (Acute) Splenic infarct (Acute) Calculus of left ureter (Acute) Elevated liver enzymes (Acute) Diabetes mellitus (Chronic) IDMITRY (acute kidney injury) (Acute) Adenocarcinoma of pancreas (Acute) Acute on chronic anemia (Acute) v v v v v v v v v Sending and/or Receiving Nurses: Please use comment section below to note any information pertinent to the patient hand-off not included above. Information / Comments: Patient is A&Ox4. Here for UTI and abdominal pain. Report received from: Kala
[2024-11-29] MEDS: QUEtiapine 50 MG TAB PO (21:23)
[2024-11-29] MEDS: Enoxaparin 40 MG/0.4 ML SYR SC (21:23)
[2024-11-29] MEDS: Sennosides/Docusate Sodium TAB 1 TAB PO (21:23)
[2024-11-29] MEDS: clonazePAM 0.5 MG TAB PO (21:24)
[2024-11-29] MEDS: Pregabalin 25 MG CAP PO (21:24)
[2024-11-29] MEDS: Insulin Glargine 300 UNITS/3 ML PEN 40 UNITS SC (21:29)
[2024-11-30] MEDS: Normal Saline 1,000 ML 125 ML IV ×3 (03:19→19:21)
[2024-11-30 06:24] LABS: Abs Immature Grans 0.02 10^3/uL (0.0-0.06); HCT 24.5 % (36.0-46.0); HGB 8.3 g/dL (11.2-15.7); Immature Grans % 0.3 %; MCH 29.4 pg (27.0-33.0); MCHC 33.9 % (32.0-36.0); MCV 87 fL (80-95); MPV 10.4 fL (8.0-11.0); Platelet Count 324 10^3/uL (130-400); RBC 2.82 10^6/uL (3.93-5.22); RDW 14.6 % (11.7-14.6); RDW-SD 44.4 fL; WBC 6.26 10^3/uL (4.4-10.8)
[2024-11-30 06:50] LABS: Anion Gap 5.4 mmol/L (3-11); BUN 25 mg/dL (7-18); CO2 30.6 mmol/L (21.0-32.0); Calcium 8.3 mg/dL (8.5-10.1); Chloride 104 mmol/L (98-107); Estimated GFR 56.95 (mL/min/1.73m2); Glucose 56 mg/dL (74-106); Potassium 3.7 mmol/L (3.5-5.1); Sodium 140 mmol/L (136-145)
[2024-11-30 06:55] LABS: Hypochromasia 2+
[2024-11-30 07:58] VITALS: BP 138/56; PULSE 70; RESP 16; TEMP 36.7; O2SAT 97
--- NOTE | 2024-11-30 08:35 | PDOC.CMIN ---
Date of service: 11/30/24 Time of Service: 08:35 Care Management Initial Assmt Initial Assessment Reason for Hospitalization: DIMITRY Functional Status/Living Situation Patient Presentation: Tina was awake and lying in bed when CM met with her. She is pleasant and able to engage in conversation. Tina has a 8mm stone and a urology consulted planned for Sunday, to discuss possible stenting. In addition, Tina lives in [place] with her Raman Cam. They have two adult sons and 4 grandchildren all of whom are supportive. Tina is followed by Hem[place]onc at [facility] for Pancreatic cancer and has a caregiver that comes into the home 4hrs X 3 days per week. Pts provides transportation since she no longer drives. Town of Residence: [place] Resides with: Spouse Significant Other/Family: Local Caregiver/Guardian: Jodie Paid caregiver M, W, Sa from 10:30-2:30 Natural Supports: and two sons are very supportive; one son lives near [place] and the other in [place]. Employment Status: Retired Instrumental Activities of Daily Living (ADLs): Independent Medications Medication Management: No Issues/Barriers identified Physical Functioning/Mobility Assistive Device: None Advance Directives Advance Directives: Do you have an Advance Directive: Y 05/28/24, 12:35 AD On File at [facility]: Y 05/28/24, 12:35 Date Asked 06/13/18 09/04/24, 00:13 AD Date Reviewed 11/29/24 11/29/24, 18:25 COLST On File at [facility] COLST Date Scanned Code Status Resuscitation Status DNR/DNI Insurance Coverage/Financial Issues Insurance: [place] Financial Issues: None identified Care Team Visit Care Team Role Provider Type Sarah Weldon MD, [place] Primary Care Provider [facility] Cosme Gao MD Emergency Provider [facility] STAFF PHYSICIAN Yung Hair Admit Provider [facility] STAFF PHYSICIAN Attending Provider Discharge Potential Discharge Needs: Consult Consult Services Needed: Other (Urology), PCP F/U Appt and Surgical F/U Appt Anticipated Barriers to Discharge: None Identified Patient/Family Education Needs: Review discharge instructions, discuss Ask Me Three Plan: Urology consult with possible surgical intervention. Anticipate, Tina will return home with resumption of home supports once medically cleared. Her will drive her home via private vehicle. Discharge plan of care to follow. Social Determinants of Health Screening Social Determinants of health last assessed in clinic: 11/29/24 Will the Patient Participate in the Screening?: Unable to obtain Do you worry about having a steady place to live?: no Problems where you live: no known problems In the past 12 months, have you had to go without electric, gas, oil or water in your home?: choose not to answer Has lack of transportation kept you from medical appointments or from doing things needed for daily living?: choose not to answer Has anyone in your life made you feel unsafe or unsupported?: choose not to answer How hard is it for you to pay for the very basics like food, housing, medical care, and heating? Would you say it is:: Not hard at all Do you want help finding or keeping work or a job?: I do not need or want help If for any reason you need help with day-to-day activities such as bathing, preparing meals, shopping, managing finances, etc., do you get the help you need?: I don?t need any help How often do you feel lonely or isolated from those around you?: Never Do you speak a language other than [place] Islander at home?: Yes Does the patient want assistance with any of the above?: No Health Related Social Needs Health related social needs: material hardship(utilities) (Z59.12) and education (Z55.6) PFSH All Active Problems (Updated 11/29/24 @ 18:42 by Yung Hair) Constipation (Acute) Discharge planning issues (Acute) DVT prophylaxis (Acute) Splenic infarct (Acute) Kidney stone (Chronic) Calculus of left ureter (Acute) Abdominal pain (Acute) Elevated liver enzymes (Acute) Diabetes mellitus (Chronic) Nausea & vomiting (Acute) DIMITRY (acute kidney injury) (Acute) Impaired functional mobility, balance, gait, and endurance (Acute) Peripheral neuropathy (Acute) Diabetic amyotrophy (Acute) Peroneal neuropathy (Acute) Heart murmur (Acute) Balance problem (Acute) Foot drop, left (Acute) Advanced care planning/counseling discussion (Acute) Low back pain potentially associated with radiculopathy (Acute) Hip pain (Acute) Diabetes mellitus with neuropathy (Acute) Nail dystrophy (Acute) Memory changes (Acute) Mass, brain (Acute) MRI 04/17/23 3mm small enhancing focus ? mets Adenocarcinoma of pancreas (Acute) bx 03/29 at [facility] Hypertension (Chronic) Acute on chronic anemia (Acute) Liver failure, acute (Acute) Hyperbilirubinemia (Acute) Transaminitis (Acute) Jaundice (Acute) Anxiety (Chronic) chronic benzodiazipine use 03/27/17 FLOR-7 SCORE=7 07/02/17 FLOR-7 SCORE=13 Diverticulosis of colon without diverticulitis (Chronic) Lichen planus (Chronic) mouth OAB (overactive bladder) (Acute) Medical History (Updated 11/29/24 @ 18:42 by uYng Hair) Thrombocytopenia Nuclear age-related cataract, left eye Ingrown nail Osteoporosis Insomnia Hematuria Neg work-up 2013. UA not meeting RBC in years since for repeat Right hip pain (03/27/17) Hypercholesterolemia Generalized osteoarthrosis low back pain; xray + DJD Ingrowing toenail (04/14/14) Hematuria unspeficified; asymptomatic; neg W/U Fatigue 06/26/12 Ingrown toenail 04/14/14 Urinary tract infectious disease recurrent Surgical History Nuclear age-related cataract, right eye History of cataract surgery History of bladder repair surgery Status post laparoscopic hysterectomy H/O bladder repair surgery sling S/P laparoscopic hysterectomy 05/07/83 partial, dysmenorrhea Hysterectomy, Laproscopic (~1983) partial; dysmenorrhea Bladder Surgery (~1999) SLING Family History Mother , age 92 Dementia Father , age 78 Cancer Brother Asthma Brother ALS (amyotrophic lateral sclerosis) Brother No problems noted. Maternal Grandfather , age 50 Black lung disease Paternal Grandfather , age 65 Black lung disease Maternal Grandmother , age 80 No problems noted. Paternal Grandmother , age 84 No problems noted. Son No problems noted. Son No problems noted. Social History Smoking/Tobacco Use Status: Former Tobacco Use tobacco type: cigarettes Quit Date: 05/07/97 Tobacco: How many years used: 30 Second Hand Exposure: Yes Smoking risk assessment performed?: Yes Alcohol Intake: current Alcohol Intake frequency: holidays/special occasions only Drug use: Never Substance use type: does not use Adopted: No Household members: spouse Housing: house Number of Children: 2 number of grandchildren: 4 Communication Needs: None Education Level: college Details: A.S. 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 Pets and animals: No Sexually active: No Do you think of yourself as: straight/heterosexual Current gender identity: female What is your relationship status?: How often do you talk on the phone with friends or family?: three or more times per week How often do you get together with friends or relatives?: decline to answer How often do you attend gnosticist or islam services?: 4 or more times per year Do you belong to any clubs or organized social groups?: yes Panel score (0-1 are the most socially isolated patients): 4 What type of physical activity do you participate in: walking, aerobic, bicycling and swimming Duration: 30-45 minutes/day Frequency: 3-4 times per week Lorraine/Taoist: Roman Catholic Special lorraine needs: No Seatbelt use: always Helmet use: Yes Helmet use: always Drive intox or ride w/intox tow bar driver: No Firearms in home: Yes Do you feel safe at home: Yes Do you feel safe in your relationship?: Yes Victim of physical abuse: No Victim of emotional abuse: No Victim of sexual abuse: No Would you like helpful sources: No Additional Social history: lives with of 59 years Raman in [place]
[2024-11-30] MEDS: Sennosides/Docusate Sodium TAB 1 TAB PO ×2 (08:37→19:56)
[2024-11-30] MEDS: Mirabegron 25 MG TABCR 50 MG PO (08:37)
[2024-11-30] MEDS: Creon, Lipase 24,000 CAPCR 1 CAP PO ×3 (08:38→19:56)
[2024-11-30] MEDS: clonazePAM 0.5 MG TAB PO ×2 (08:38→19:56)
[2024-11-30] MEDS: QUEtiapine 50 MG TAB PO ×2 (08:38→19:56)
[2024-11-30] MEDS: Pregabalin 25 MG CAP PO ×2 (08:38→19:56)
[2024-11-30] MEDS: Polyethylene Glycol 3350 17 GM PACKET PO (08:38)
[2024-11-30] MEDS: Tamsulosin 0.4 MG CAPCR PO (08:38)
[2024-11-30 10:23] LABS: Lab Add On Test DONE
[2024-11-30 10:47] LABS: ALT 250 U/L (14-59); AST 266 U/L (15-37); Albumin 2.1 g/dL (3.4-5.0); Alkaline Phosphatase 953 U/L (46-116); Bilirubin, Direct 0.2 mg/dL (0.0-0.2); Bilirubin, Total 0.6 mg/dL (0.2-1.0); Total Protein 6.3 g/dL (6.4-8.2)
--- NOTE | 2024-11-30 11:48 | PGE_ITS ---
Date of Service Date of service: 11/30/24 Time of Service: 11:50 Assessment and Plan Assessment and plan (1) Calculus of left ureter: Status: Acute Assessment and plan: Persistent stone in left UVJ, now 8mm per CT. On admission having difficulty with oral intake and DIMITRY. Symptoms improving, but hasn't passed stone. Continue with supportive care with some IV fluids, oral fluids, tamsulosin. Case discussed in ED with Dr. Vergara 11/29. With size of stone she still may need stenting 12/01 if the stone does not pass. Morphine and antiemetics (2) DIMITRY (acute kidney injury): Status: Acute Assessment and plan: A/w recent ketoralac and some dehydration with vomiting and poor oral intake on admission. Improved to near baseline today with hydration and holding NSAIDs. (3) Splenic infarct: Status: Acute Assessment and plan: This is not new. Per covering [facility] heme/onc after initially recommending no treatment, called back to advise that they would consider anticoagulation, but primary oncology team aware of the clot and did not start treatment. Given complexity, deferring to primary oncology team. (4) Elevated liver enzymes: Status: Acute Assessment and plan: Severe transaminitis but this is not new. A/w pancreatic cancer. Labs were reviewed in ED with [facility] GI team who did not recommend addtional work up or transfer to tertiary care. Roughly stable on repeat this morning. (5) Adenocarcinoma of pancreas: Status: Acute Assessment and plan: Has had this for 2 years. Staging not clear per notes, lesion in brain but not clearly metastatic. s/p 2/3 cycles of gemcitabime for recurrence after initial treatment 2 years ago. This was her off week. F/u with PCP and oncology after d/c. (6) Acute on chronic anemia: Status: Acute Assessment and plan: moderate, stable from 11/27. Denies bleeding. Slight drop with hydration, follow again in AM. (7) Diabetes mellitus: Status: Chronic Assessment and plan: Recent PCP notes reviewed. Continued basal insulin and sliding scale. Glucose low on AM labs, though normal on FS. Will cut glargine to 35 units from 40 units. (8) DVT prophylaxis: Status: Acute Assessment and plan: enoxaparin (9) Constipation: Status: Acute Assessment and plan: scheduled PEG and senna/colace, mag and bisocodyl prn, continue until good BM. Could add mg citrate if not working. (10) Discharge planning issues: Status: Acute Assessment and plan: observation for now. May need surgery if stone not passing. DNR/DNI confirmed. Palliative consult for continuity Subjective Subjective Patient reports: denies shortness of breath or fever Interval history since last seen: Vomited x 1 overnight 100ml, but feels less nauseous this morning. Was able to eat some, drinking okay. No BM still. Abdominal pain is better, not in pain now. Still burning with urination. Exam Narrative Exam Narrative: GEN: Alert and oriented, no acute distress at rest. LUNGS: CTAB with normal effort CV: RRR with 2/6 systolic murmur, gallops, or rubs. ABD: active bowel sounds, soft, nondistended. Not tender. No masses. EXT: no cyanosis, clubbing, or edema Objective Last Vital Signs Temp 36.7 C 11/30/24 07:58 Pulse 70 11/30/24 07:58 Resp 16 11/30/24 07:58 BP 138/56 L 11/30/24 07:58 Pulse Ox 97 11/30/24 07:58 Laboratory Results - last 24 hr 11/29/24 11/29/24 11/29/24 10:47 11:40 12:17 WBC 6.52 RBC 3.08 L Hgb 9.1 L Hct 26.8 L MCV 87 MCH 29.5 MCHC 34.0 RDW 14.6 Plt Count 287 MPV 10.1 Immature Gran % 0.3 Neutrophils % 87.6 Lymphocytes % 8.1 Monocytes % 3.1 Eosinophils % 0.6 Basophils % 0.3 Nucleated RBC % 0.0 Absolute Neutrophils 5.71 Absolute Lymphocytes 0.53 L Absolute Monocytes 0.20 Absolute Eosinophils 0.04 Absolute Basophils 0.02 RBC Morphology Hypochromasia PT 10.3 INR 1.0 APTT 30.3 H Sodium 135 L Potassium 4.6 Chloride 100 Carbon Dioxide 27.4 Anion Gap 7.6 BUN 33 H Creatinine 1.3 H Est GFR (CKD-EPI 2020) 41.57 Glucose 280 H Calcium 8.4 L Magnesium 1.9 Total Bilirubin 0.6 Conjugated Bilirubin 0.2 AST 200 H ALT 205 H Alkaline Phosphatase 1056 H Total Protein 6.6 Albumin 2.1 L Lipase < 6 Urine RBC 10-20 H Urine WBC 3-5 Ur Epithelial Cells Many Urine Crystals Negative Urine Bacteria Many Urine Casts Negative Urine Mucus Moderate Ur Culture Indicated? No Add-On Test Request 11/30/24 11/30/24 06:11 06:18 WBC 6.26 RBC 2.82 L Hgb 8.3 L Hct 24.5 L MCV 87 MCH 29.4 MCHC 33.9 RDW 14.6 Plt Count 324 MPV 10.4 Immature Gran % 0.3 Neutrophils % 78.9 Lymphocytes % 17.6 Monocytes % 1.6 Eosinophils % 1.4 Basophils % 0.2 Nucleated RBC % 0.0 Absolute Neutrophils 4.94 Absolute Lymphocytes 1.10 L Absolute Monocytes 0.10 Absolute Eosinophils 0.09 Absolute Basophils 0.01 RBC Morphology See Below Hypochromasia 2+ PT INR APTT Sodium 140 Cancelled Potassium 3.7 Cancelled Chloride 104 Cancelled Carbon Dioxide 30.6 Cancelled Anion Gap 5.4 Cancelled BUN 25 H Cancelled Creatinine 1.0 Cancelled Est GFR (CKD-EPI 2020) 56.95 Cancelled Glucose 56 L Cancelled Calcium 8.3 L Cancelled Magnesium Total Bilirubin 0.6 Conjugated Bilirubin 0.2 AST 266 H ALT 250 H Alkaline Phosphatase 953 H Total Protein 6.3 L Albumin 2.1 L Lipase Urine RBC Urine WBC Ur Epithelial Cells Urine Crystals Urine Bacteria Urine Casts Urine Mucus Ur Culture Indicated? Add-On Test Request DONE Time Spent with Patient Time Spent with Patient: 35-49 minutes Time was spent: preparing to see the patient(eg.review tests), obtaining and/or reviewing separately otained hiistory, ordering medications,tests, procedures, referring, communicating with other health foster care social worker, indepentently interpreting results, counseling the patient and care coordination
[2024-11-30] MEDS: Ondansetron O.D.T. 4 MG TABEF PO (13:37)
[2024-11-30] MEDS: Bisacodyl 10 MG SUPP PR (16:37)
[2024-11-30 19:44] VITALS: BP 154/51; PULSE 72; RESP 18; TEMP 36.7; O2SAT 93
[2024-11-30] MEDS: Normal Saline Flush 10 ML SYR IVP (19:55)
[2024-11-30] MEDS: Enoxaparin 40 MG/0.4 ML SYR SC (19:56)
[2024-11-30] MEDS: Insulin Glargine 300 UNITS/3 ML PEN 35 UNITS SC (20:25)
[2024-12-01] VITALS (19 sets, daily range): BP systolic 112–143; BP diastolic 34–82; PULSE 54–81; RESP 13–24; TEMP 36–37; O2SAT 94–100; BMI 23.2
[2024-12-01] MEDS: Normal Saline 1,000 ML 125 ML IV (03:29)
[2024-12-01 05:58] LABS: HCT 23.4 % (36.0-46.0); HGB 7.9 g/dL (11.2-15.7)
[2024-12-01 06:21] LABS: ALT 376 U/L (14-59); AST 473 U/L (15-37); Albumin 2.0 g/dL (3.4-5.0); Alkaline Phosphatase 881 U/L (46-116); Anion Gap 6.2 mmol/L (3-11); BUN 11 mg/dL (7-18); Bilirubin, Total 0.4 mg/dL (0.2-1.0); CO2 29.8 mmol/L (21.0-32.0); Calcium 7.8 mg/dL (8.5-10.1); Chloride 105 mmol/L (98-107); Estimated GFR 87.37 (mL/min/1.73m2); Glucose 63 mg/dL (74-106); Sodium 141 mmol/L (136-145); Total Protein 6.0 g/dL (6.4-8.2)
[2024-12-01 06:33] LABS: Potassium 2.8 mmol/L (3.5-5.1)
--- NOTE | 2024-12-01 07:23 | W.PALPGNOTE ---
Date of service: 12/01/24 Time of Service: 07:24 Assessment and Plan Assessment and plan (1) Advanced care planning/counseling discussion: Status: Acute (2) Anxiety: Status: Chronic (3) Diabetes mellitus with neuropathy: Status: Acute (4) Transaminitis: Status: Acute (5) Calculus of left ureter: Status: Acute (6) Adenocarcinoma of pancreas: Status: Acute (7) Memory changes: Status: Acute (8) Impaired functional mobility, balance, gait, and endurance: Status: Acute (9) Hypokalemia: Status: Acute Assessment and plan: Shara is an 79-year-old woman who is fairly intense. She does have an anxiety disorder. She is overwhelmed by her different medical problems but is doing her best. Diabetes I am certain that it will be well-controlled in the hospital. It is presently 88. She does need more help at home. This has been a long-term goal is to have more help at home. Sons are involved. Ureteral calculi?so far she has not passed the stone. Will see what today brings. She is constipated. Worked with nursing to increase the medication to help with the passing of stool which may also help her stone Low potassium hospitalist will be coming in soon. I am sure that they will adjust this Pancreatic cancer she has done remarkably well with this although the numbers are going up. She is monitored closely by the oncology team. Initially I thought she was going to have some sort of resection, but due to her overall ability to withstand an operation, surgeons elected not to CODE STATUS?she has been consistently a DO NOT RESUSCITATE. We have discussed this many times. Subjective Subjective Interval history since last seen: Shara is an 79-year-old woman who is well-known to me. I have been her physician for approximately 15 to 20 years. Approximately 2 years ago she had significant weight loss and jaundice and was found to have pancreatic cancer. She has done very very well but recently her numbers have increased significantly. She has a long history of severe anxiety disorder but remarkably during this process of cancer treatment etc. she has done very well and seems to be handling her anxiety better than I have ever seen her. Both she and her Rock both have multiple medical problems and are very much overwhelmed by all that is going on. Their sons are helpful but not present. Has been very difficult to control her blood sugars mostly because of forgetting to take her insulin. She came into the hospital with a year ago stone. The overall plan is to hope that she passes it and if she does not then she may need to go in for surgery Nursing states that she was upset that overnight she was interrupted so much. She finally went back to sleep around 530 this morning. Exam Narrative Exam Narrative: Shara is lying in her bed sleeping. She cooperated with the exam. She has pretty good airflow in her lungs. She does have a harsh systolic murmur 2-3/6. Her feet are warm she does not have edema. She woke briefly during my exam and then went back to sleep Objective Last Vital Signs Temp 98.1 F 11/30/24 19:44 Pulse 72 11/30/24 19:44 Resp 18 11/30/24 19:44 BP 154/51 H 11/30/24 19:44 Pulse Ox 93 11/30/24 19:44 Laboratory Results - last 24 hr 11/30/24 12/01/24 06:18 05:45 Hgb 7.9 L Hct 23.4 L Sodium Cancelled 141 Potassium Cancelled 2.8 L* Chloride Cancelled 105 Carbon Dioxide Cancelled 29.8 Anion Gap Cancelled 6.2 BUN Cancelled 11 Creatinine Cancelled 0.7 Est GFR (CKD-EPI 2020) Cancelled 87.37 Glucose Cancelled 63 L Calcium Cancelled 7.8 L Total Bilirubin 0.6 0.4 Conjugated Bilirubin 0.2 AST 266 H 473 H ALT 250 H 376 H Alkaline Phosphatase 953 H 881 H Total Protein 6.3 L 6.0 L Albumin 2.1 L 2.0 L Add-On Test Request DONE
[2024-12-01] MEDS: QUEtiapine 50 MG TAB PO (08:00)
[2024-12-01] MEDS: Potassium Chloride 20 MEQ TABCR PO ×2 (08:00→17:27)
[2024-12-01] MEDS: Sennosides/Docusate Sodium TAB 1 TAB PO (08:00)
[2024-12-01] MEDS: Tamsulosin 0.4 MG CAPCR PO (08:00)
[2024-12-01] MEDS: clonazePAM 0.5 MG TAB PO (08:00)
[2024-12-01] MEDS: Mirabegron 25 MG TABCR 50 MG PO (08:00)
[2024-12-01] MEDS: Pregabalin 25 MG CAP PO (08:00)
[2024-12-01] MEDS: Bisacodyl 10 MG SUPP PR (08:11)
--- NOTE | 2024-12-01 08:53 | PDOC.CMPRO ---
Date of service: 12/01/24 Time of Service: 08:53 Care Management Progress Note Progress Note Text Progress Note Text: Tina was lying in bed dozing when CM met with her. She was easily awakened and engaged well with CM. Tina was admitted with a ureteral stone and informed CM that she might go to surgery at some point today. She has been NPO and reported that she is hungry. Tina talked a lot about her family and her home life. She lives in a split level home which she loves, but which is challenging since there are so many stairs. She is very close to her family and feels well supported by them. Discharge Potential Discharge Needs: PCP F/U Appt Anticipated Barriers to Discharge: None Identified Patient/Family Education Needs: Review discharge instructions, discuss Ask Me Three Transportation: Private vehicle Plan: Anticipate, Tina will return home with resumption of home supports once medically cleared. Her will drive her home via private vehicle. CM will follow and continue to support discharge planning. Social Determinants of Health Screening Social Determinants of health last assessed in clinic: 11/29/24 Will the Patient Participate in the Screening?: Unable to obtain Do you worry about having a steady place to live?: no Problems where you live: no known problems In the past 12 months, have you had to go without electric, gas, oil or water in your home?: choose not to answer Has lack of transportation kept you from medical appointments or from doing things needed for daily living?: choose not to answer Has anyone in your life made you feel unsafe or unsupported?: choose not to answer How hard is it for you to pay for the very basics like food, housing, medical care, and heating? Would you say it is:: Not hard at all Do you want help finding or keeping work or a job?: I do not need or want help If for any reason you need help with day-to-day activities such as bathing, preparing meals, shopping, managing finances, etc., do you get the help you need?: I don?t need any help How often do you feel lonely or isolated from those around you?: Never Do you speak a language other than Bulgarian at home?: Yes Does the patient want assistance with any of the above?: No Health Related Social Needs Health related social needs: material hardship(utilities) (Z59.12) and education (Z55.6)
[2024-12-01] MEDS: POTASSIUM CHLORIDE 20 MEQ/100 ML BAG 50 MEQ IV_INF ×2 (10:27→12:50)
[2024-12-01] MEDS: POTASSIUM CHLORIDE/D5-0.45NACL 1,000 ML 100 MEQ IV (10:30)
--- NOTE | 2024-12-01 11:28 | UCONE_ITS ---
Date of service: 12/01/24 Time of Service: 11:28 Assessment and Plan Assessment and plan (1) Calculus of left ureter: Status: Acute Assessment and plan: Her stone has not progressed. At a minimum, I would suggest that we place a left ureteral stent. We can also consider ureteroscopy and holmium laser lithotripsy as a primary treatment of her stone, but the ureteroscopy will really depend on the amount of edema surrounding the stone in the left ureter. History of Present Illness History of Present Illness Chief Complaint: Left ureteral stone Narrative: This is an 79-year-old woman who has history of urinary frequency and urgency. She failed anticholinergics and we have been treating her with beta 3 agonist. She presented to the emergency department last week with an acute onset of left- sided flank pain. She was found to have a large left distal ureteral stone. She was referred to our office and we were in the process of checking with our anesthesia colleagues to ensure that she is a surgical candidate at our facility. It was felt that she could have her procedures done here. She then returned to the emergency department over the weekend. Her stone has not progressed. She is agreeable to surgical treatment for her stone at this point Review of Systems Narrative: No fevers or chills No vision change or dysphasia Diabetes. No thyroid dysfunction No shortness of breath, cough or hemoptysis No chest pain or palpitations No nausea, vomiting, hepatitis, ulcers, jaundice Peripheral neuropathy. No seizures, strokes Pancreatic cancer. Chronic anemia. No bleeding disorders No gout PFSH All Active Problems (Updated 12/01/24 @ 07:34 by Sarah Weldon MD, [place]) Hypokalemia (Acute) Constipation (Acute) Discharge planning issues (Acute) DVT prophylaxis (Acute) Splenic infarct (Acute) Kidney stone (Chronic) Calculus of left ureter (Acute) Abdominal pain (Acute) Elevated liver enzymes (Acute) Diabetes mellitus (Chronic) Nausea & vomiting (Acute) DIMITRY (acute kidney injury) (Acute) Impaired functional mobility, balance, gait, and endurance (Acute) Peripheral neuropathy (Acute) Diabetic amyotrophy (Acute) Peroneal neuropathy (Acute) Heart murmur (Acute) Balance problem (Acute) Foot drop, left (Acute) Advanced care planning/counseling discussion (Acute) Low back pain potentially associated with radiculopathy (Acute) Hip pain (Acute) Diabetes mellitus with neuropathy (Acute) Nail dystrophy (Acute) Memory changes (Acute) Mass, brain (Acute) MRI 04/17/23 3mm small enhancing focus ? mets Adenocarcinoma of pancreas (Acute) bx 03/29 [place] [facility] [place] Hypertension (Chronic) Acute on chronic anemia (Acute) Liver failure, acute (Acute) Hyperbilirubinemia (Acute) Transaminitis (Acute) Jaundice (Acute) Anxiety (Chronic) chronic benzodiazipine use 03/27/17 FLOR-7 SCORE=7 07/02/17 FLOR-7 SCORE=13 Diverticulosis of colon without diverticulitis (Chronic) Lichen planus (Chronic) mouth OAB (overactive bladder) (Acute) Medical History (Updated 12/01/24 @ 07:34 by Sarah Weldon MD, [place]) Thrombocytopenia Nuclear age-related cataract, left eye Ingrown nail Osteoporosis Insomnia Hematuria Neg work-up 2013. UA not meeting RBC in years since for repeat Right hip pain (03/27/17) Hypercholesterolemia Generalized osteoarthrosis low back pain; xray + DJD Ingrowing toenail (04/14/14) Hematuria unspeficified; asymptomatic; neg W/U Fatigue 06/26/12 Ingrown toenail 04/14/14 Urinary tract infectious disease recurrent Surgical History Nuclear age-related cataract, right eye History of cataract surgery History of bladder repair surgery Status post laparoscopic hysterectomy H/O bladder repair surgery sling S/P laparoscopic hysterectomy 05/07/83 partial, dysmenorrhea Hysterectomy, Laproscopic (~1983) partial; dysmenorrhea Bladder Surgery (~1999) SLING Family History Mother , age 92 Dementia Father , age 78 Cancer Brother Asthma Brother ALS (amyotrophic lateral sclerosis) Brother No problems noted. Maternal Grandfather , age 50 Black lung disease Paternal Grandfather , age 65 Black lung disease Maternal Grandmother , age 80 No problems noted. Paternal Grandmother , age 84 No problems noted. Son No problems noted. Son No problems noted. Social History Smoking/Tobacco Use Status: Former Tobacco Use tobacco type: cigarettes Quit Date: 05/07/97 Tobacco: How many years used: 30 Second Hand Exposure: Yes Smoking risk assessment performed?: Yes Alcohol Intake: current Alcohol Intake frequency: holidays/special occasions only Drug use: Never Substance use type: does not use Adopted: No Household members: spouse Housing: house Number of Children: 2 number of grandchildren: 4 Communication Needs: None Education Level: college Details: A.S. 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 Pets and animals: No Sexually active: No Do you think of yourself as: straight/heterosexual Current gender identity: female What is your relationship status?: How often do you talk on the phone with friends or family?: three or more times per week How often do you get together with friends or relatives?: decline to answer How often do you attend amish or spiritism services?: 4 or more times per year Do you belong to any clubs or organized social groups?: yes Panel score (0-1 are the most socially isolated patients): 4 What type of physical activity do you participate in: walking, aerobic, bicycling and swimming Duration: 30-45 minutes/day Frequency: 3-4 times per week Lorraine/Yarsanism: Sikhism Special lorraine needs: No Seatbelt use: always Helmet use: Yes Helmet use: always Drive intox or ride w/intox water tanker driver: No Firearms in home: Yes Do you feel safe at home: Yes Do you feel safe in your relationship?: Yes Victim of physical abuse: No Victim of emotional abuse: No Victim of sexual abuse: No Would you like helpful sources: No Additional Social history: lives with of 59 years [place] in [place] Exam Const General: other (appears chronically ill) Neck Neck: supple Resp Effort & Inspection: normal respiratory effort Auscultation: clear to auscultation bilaterally Cardio Rate: regular rate Rhythm: regular rhythm GI Palpation: soft Neuro General: patient alert, patient awake and patient oriented x3 Results Last Vital Signs Temp 36.4 C L 12/01/24 07:25 Pulse 64 12/01/24 07:25 Resp 15 12/01/24 07:25 BP 141/56 H 12/01/24 07:25 Pulse Ox 97 12/01/24 07:25 Labs 12/01/24 05:45 12/01/24 05:45 Labs: Laboratory Results - last 24 hr 12/01/24 05:45 Hgb 7.9 L Hct 23.4 L Sodium 141 Potassium 2.8 L* Chloride 105 Carbon Dioxide 29.8 Anion Gap 6.2 BUN 11 Creatinine 0.7 Est GFR (CKD-EPI 2020) 87.37 Glucose 63 L Calcium 7.8 L Total Bilirubin 0.4 AST 473 H ALT 376 H Alkaline Phosphatase 881 H Total Protein 6.0 L Albumin 2.0 L
--- NOTE | 2024-12-01 13:24 | PGE_ITS ---
Date of Service Date of service: 12/01/24 Time of Service: 13:24 Assessment and Plan Assessment and plan (1) Calculus of left ureter: Status: Acute Assessment and plan: Persistent stone in left UVJ, 8mm per admission CT. On admission having difficulty with oral intake and DIMITRY. Symptoms improved somewhat, but hasn't passed stone. Dr. Vergara did see her late this morning and plans ureteroscopy. (2) DIMITRY (acute kidney injury): Status: Acute Assessment and plan: A/w recent ketoralac and some dehydration with vomiting and poor oral intake on admission. Improved to baseline (3) Elevated liver enzymes: Status: Acute Assessment and plan: Severe transaminitis but this is not new. A/w pancreatic cancer. Labs were reviewed in ED with [facility] GI team who did not recommend addtional work up or transfer to tertiary care. Roughly stable again today (4) Adenocarcinoma of pancreas: Status: Acute Assessment and plan: Has had this for 2 years. Staging not clear per notes, lesion in brain but not clearly metastatic. s/p 2/3 cycles of gemcitabime for recurrence after initial treatment 2 years ago. This was her off week. F/u with PCP and oncology after d/c. (5) Acute on chronic anemia: Status: Acute Assessment and plan: moderate, stable from 11/27. Denies bleeding. Slight drop with hydration since admission. (6) Diabetes mellitus: Status: Chronic Assessment and plan: Recent PCP notes reviewed. Continued basal insulin and sliding scale. Glucose again low on AM labs. Will cut glargine further 30 units from 40 units at home (7) DVT prophylaxis: Status: Acute Assessment and plan: enoxaparin (8) Constipation: Status: Acute Assessment and plan: Had BM today, continue bowel meds prn. (9) Discharge planning issues: Status: Acute Assessment and plan: Make inpatient, will need surgery as stone not passing. DNR/DNI confirmed. Appreciate palliative input. Subjective Subjective Patient reports: denies vomiting, shortness of breath or fever Interval history since last seen: She feels a little better this morning, less pain with urination, but still has the LLQ pain. Still some nausea. Exam Narrative Exam Narrative: GEN: Alert and oriented, no acute distress at rest. LUNGS: CTAB with normal effort CV: RRR with 2/6 systolic murmur, gallops, or rubs. ABD: active bowel sounds, soft, nondistended. Mild left sided tenderness with deep palpation. No masses. EXT: no cyanosis, clubbing, or edema Objective Last Vital Signs Temp 36.4 C L 12/01/24 07:25 Pulse 64 12/01/24 07:25 Resp 15 12/01/24 07:25 BP 141/56 H 12/01/24 07:25 Pulse Ox 97 12/01/24 07:25 Laboratory Results - last 24 hr 12/01/24 05:45 Hgb 7.9 L Hct 23.4 L Sodium 141 Potassium 2.8 L* Chloride 105 Carbon Dioxide 29.8 Anion Gap 6.2 BUN 11 Creatinine 0.7 Est GFR (CKD-EPI 2020) 87.37 Glucose 63 L Calcium 7.8 L Total Bilirubin 0.4 AST 473 H ALT 376 H Alkaline Phosphatase 881 H Total Protein 6.0 L Albumin 2.0 L Time Spent with Patient Time Spent with Patient: 25-34 minutes Time was spent: preparing to see the patient(eg.review tests), obtaining and/or reviewing separately otained hiistory, ordering medications,tests, procedures, referring, communicating with other health career orientation teacher, indepentently interpreting results, counseling the patient and care coordination
--- NOTE | 2024-12-01 14:40 | W.ANESPRE ---
General Info Date of Service Date Performed: 12/01/24 Height: 5 ft 4 in Weight: 61.416 kg Body Mass Index (BMI): 23.2 Surgical Procedure: Operation Date: 12/01/24 12:55 Proposed Procedure Side Surgeon p Cystoscopy/Possible Laser/Retrograde/Ureteroscopy/ Stent Placement Left Santiago Vergara MD Actual Procedure Side Surgeon p Cystoscopy/Possible Laser/Retrograde/Ureteroscopy/ Stent Placement Left Santiago Vergara MD Pre-Op Diagnosis Post-Op Diagnosis Calculus of left ureter: Meds Allergies and Home Medications Allergies Allergy/AdvReac Type Severity Reaction Status Date / Time ibuprofen AdvReac Mild Stomach Verified 11/29/24 10:43 cramps Home Medication ?Medication ?Instructions ?Recorded pen needle, diabetic 31 gauge x #90 ea 10/31/2207/20 (BD Ultra-Fine Mini Pen Needle) blood-glucose meter (FreeStyle #1 ea 04/03/23 Lite Meter kit) polyethylene glycol 3350 17 17 g PO BID PRN laxative effect 04/23/23 gram/dose oral powder (Miralax) #238 grams Creon 24,000-76,000-120,000 unit 1 cap PO TID #270 caps 05/30/23 capsule,delayed release (mdwsgf-vujpvqye-vlygtsc) estradiol 0.01% (0.1 mg/gram) 1 g vaginal DAILY #42.5 grams 06/21/23 vaginal cream triamcinolone acetonide 0.1 % 1 applic topical DAILY PRN 06/28/23 topical cream irritation #80 grams fluticasone propionate 50 2 spray intranasal DAILY #16 grams 07/16/23 mcg/actuation nasal spray,suspension methenamine hippurate 1 gram tablet 1 g PO BID #180 tab-caps 03/21/24 quetiapine 50 mg tablet 50 mg PO BID #180 tabs 06/13/24 pen needle, diabetic 31 gauge x #200 ea 06/18/2407/20 (BD Ultra-Fine Mini Pen Needle) celecoxib 100 mg capsule 100 mg PO BID #180 caps 08/28/24 Held on 11/24/24. Instructions: Resume on 11/28/24. don't take while taking ketorolac pregabalin 25 mg capsule 25 mg PO BID #180 caps 09/08/24 mirabegron 50 mg tablet,extended 50 mg PO DAILY #90 tabs 09/17/24 release 24 hr (Myrbetriq) clonazepam 0.5 mg tablet 0.5 mg PO BID #180 tab-caps 09/22/24 insulin glargine 100 unit/mL (3 See Rx Instructions subcut BID #60 10/20/24 mL) subcutaneous pen (Lantus mL Solostar U-100 Insulin) blood sugar diagnostic (FreeStyle #300 ea 11/03/24 Test strips) lancets 28 gauge (FreeStyle #300 ea 11/03/24 Lancets) ketorolac 10 mg tablet 10 mg PO Q8H PRN pain #14 tabs 11/24/24 tamsulosin 0.4 mg capsule 0.4 mg PO DAILY #13 caps 11/24/24 Current Visit Medications: Current Medications Generic Name Dose Route Start Last Admin Trade Name Freq PRN Reason Stop Dose Admin Acetaminophen 650 mg 11/29/24 17:55 Acetaminophen 325 Mg Tab PO Q4H PRN PRN Lipase/Protease/Amylase 1 cap 11/30/24 08:30 12/01/24 08:02 Creon, Lipase 24,000 Capcr PO Not Given TID SYDNI Bisacodyl 10 mg 11/29/24 18:30 12/01/24 08:11 Bisacodyl 10 Mg Supp NE 10 mg DAILY PRN PRN Administration Clonazepam 0.5 mg 11/29/24 21:00 12/01/24 08:00 Clonazepam 0.5 Mg Tab PO 0.5 mg BID SYDNI Administration Dextrose 0 gm 11/29/24 17:55 Glucose Oral Gel 15 Gm/37.5 Gm Tube PO DIRECTED PRN Dextrose/Water 0 gm 11/29/24 17:55 Dextrose 50%-Water 25 Gm/50 Ml Syr IVP DIRECTED PRN Droperidol 0.625 mg 12/01/24 14:07 Droperidol 5 Mg/2 Ml Vial IVP DIRECTED PRN Enoxaparin Sodium 40 mg 11/29/24 21:30 11/30/24 19:56 Enoxaparin 40 Mg/0.4 Ml Syr SC 40 mg HS SYDNI Administration Ephedrine Sulfate 0 mg 12/01/24 14:06 Ephedrine 25 Mg/5 Ml Syringe IVP DIRECTED PRN Fentanyl 0 mcg 12/01/24 14:07 Fentanyl 100 Mcg/2 Ml Vial IVP DIRECTED PRN Fluticasone Propionate 0 gm 11/30/24 08:30 12/01/24 08:02 Fluticasone Nasal Icard 16 Gm Btl NS Not Given DAILY [facility] Hydromorphone HCl 0 mg 12/01/24 14:07 Hydromorphone 2 Mg/Ml Syr IVP DIRECTED PRN Potassium Chloride/Sodium Chloride 1,000 mls @ 100 mls/hr 12/01/24 10:00 12/01/24 10:30 Kcl 20meq/D5-0.45% Nacl IV 100 mls/hr INFUSION [facility] Administration Ringer's Solution 1,000 mls @ 75 mls/hr 12/01/24 14:15 IV INFUSION SYDNI Ringer's Solution 1,000 mls @ 75 mls/hr 12/01/24 14:15 IV INFUSION [facility] IV Miscellaneous Supplies 1 each 11/29/24 11:00 Iv Access IV DIRECTED [facility] Insulin Aspart 0 units 11/30/24 08:00 12/01/24 11:17 Insulin Aspart 300 Units/3 Ml Pen SC Not Given 0800,1200,1700 [facility] Protocol Insulin Glargine 30 units 12/01/24 20:00 Insulin Glargine 300 Units/3 Ml Pen SC [facility] Magnesium Hydroxide 30 ml 11/29/24 18:30 Milk Of Magnesia 30 Ml Cup PO DAILY PRN PRN Mirabegron 50 mg 11/30/24 08:30 12/01/24 08:00 Mirabegron 25 Mg Tabcr PO 50 mg DAILY [facility] Administration Morphine Sulfate 2 mg 11/30/24 20:10 Morphine 10 Mg/Ml Vial IVP Q4H PRN PRN Naloxone HCl 0 mg 12/01/24 14:06 Naloxone 0.4 Mg/Ml Vial IVP PRN PRN Ondansetron HCl 4 mg 11/29/24 16:58 11/30/24 13:37 Ondansetron O.D.T. 4 Mg Tabef PO 4 mg Q8H PRN PRN Administration Pt's Own Estradiol 0 0 each 11/30/24 08:30 12/01/24 08:01 .01 % (0.1 Mg/Gram) VG Not Given Cream DAILY [facility] Polyethylene Glycol 17 gm 11/29/24 16:55 Polyethylene Glycol 3350 17 Gm Packet PO BID PRN Laxative Effect Polyethylene Glycol 17 gm 11/30/24 08:30 12/01/24 08:01 Polyethylene Glycol 3350 17 Gm Packet PO Not Given DAILY SYDNI Potassium Chloride 20 meq 12/01/24 08:30 12/01/24 08:00 Potassium Chloride 20 Meq Tabcr PO 20 meq TID SYDNI Administration Pregabalin 25 mg 11/29/24 21:00 12/01/24 08:00 Pregabalin 25 Mg Cap PO 25 mg BID SYDNI Administration Quetiapine Fumarate 50 mg 11/29/24 21:00 12/01/24 08:00 Quetiapine 50 Mg Tab PO 50 mg BID SYDNI Administration Senna/Docusate Sodium 1 tab 11/29/24 20:00 12/01/24 08:00 Sennosides/Docusate Sodium Tab PO 1 tab BID SYDNI Administration Sodium Chloride 0 ml 11/29/24 10:55 Normal Saline Flush 10 Ml Syr IVP PRN PRN Sodium Chloride 0 ml 11/29/24 20:00 12/01/24 08:00 Normal Saline Flush 10 Ml Syr IVP Not Given BID SYDNI Sodium Chloride 0 ml 11/29/24 10:55 Normal Saline 10 Ml Vial IJ DIRECTED PRN Tamsulosin HCl 0.4 mg 11/30/24 08:30 12/01/24 08:00 Tamsulosin 0.4 Mg Capcr PO 0.4 mg DAILY SYDNI Administration Triamcinolone Acetonide 0 gm 11/30/24 07:28 Triamcinolone 0.1% Cr 15 Gm Tube TP DAILY PRN PRN irritation PFSH Active Problems Active Problems: Problem Status Onset Code Hypokalemia Acute E87.6 Constipation Acute K59.00 Discharge planning issues Acute Z75.8 DVT prophylaxis Acute Z29.9 Splenic infarct Acute D73.5 Kidney stone Chronic N20.0 Calculus of left ureter Acute N20.1 Abdominal pain Acute R10.9 Elevated liver enzymes Acute R74.8 Diabetes mellitus Chronic E11.9 Nausea & vomiting Acute R11.2 DIMITRY (acute kidney injury) Acute N17.9 Impaired functional mobility, balance, gait, and endurance Acute Z74.09 Peripheral neuropathy Acute G62.9 Diabetic amyotrophy Acute E11.44 Peroneal neuropathy Acute G57.30 Heart murmur Acute R01.1 Balance problem Acute R26.89 Foot drop, left Acute M21.372 Advanced care planning/counseling discussion Acute Z71.89 Low back pain potentially associated with radiculopathy Acute M54.50 Hip pain Acute M25.559 Diabetes mellitus with neuropathy Acute E11.40 Nail dystrophy Acute L60.3 Memory changes Acute R41.3 Mass, brain Acute G93.89 Adenocarcinoma of pancreas Acute C25.9 Hypertension Chronic I10 Acute on chronic anemia Acute D64.9 Liver failure, acute Acute K72.00 Hyperbilirubinemia Acute E80.6 Transaminitis Acute R74.01 Jaundice Acute R17 Anxiety Chronic F41.9 Diverticulosis of colon without diverticulitis Chronic K57.30 Lichen planus Chronic L43.9 OAB (overactive bladder) Acute N32.81 Medical History Medical History (Updated 12/01/24 @ 07:34 by Sarah Weldon MD, [place]) Thrombocytopenia Nuclear age-related cataract, left eye Ingrown nail Osteoporosis Insomnia Hematuria Neg work-up 2013. UA not meeting RBC in years since for repeat Right hip pain (03/27/17) Hypercholesterolemia Generalized osteoarthrosis low back pain; xray + DJD Ingrowing toenail (04/14/14) Hematuria unspeficified; asymptomatic; neg W/U Fatigue 06/26/12 Ingrown toenail 04/14/14 Urinary tract infectious disease recurrent Surgical History Surgical History Nuclear age-related cataract, right eye History of cataract surgery History of bladder repair surgery Status post laparoscopic hysterectomy H/O bladder repair surgery sling S/P laparoscopic hysterectomy 05/07/83 partial, dysmenorrhea Hysterectomy, Laproscopic (~1983) partial; dysmenorrhea Bladder Surgery (~1999) SLING Tobacco Smoking/Tobacco Use Status: Former Tobacco Use Passive smoking exposure: Yes Second hand exposure: Yes Alcohol Alcohol Intake: current Alcohol intake frequency: holidays/special occasions only Substance Use Substance use: Never Substance use type: does not use Vital Signs and Lab Results Vital Signs Most Recent Vital Signs in EMR: Most Recent Vital Signs Temp Pulse Resp BP Pulse Ox 36.4 C L 64 15 141/56 H 97 12/01/24 07:25 12/01/24 07:25 12/01/24 07:25 12/01/24 07:25 12/01/24 07:25 Point of Care Results Point of Care Results: Finger Stick Blood Glucose 97 12/01/24 11:17 Lab Results 12/01/24 05:45 12/01/24 05:45 Complete Blood Count: WBC, (4.4-10.8) 6.26 10^3/uL 11/30/24, 06:11 RBC, (3.93-5.22) 2.82 10^6/uL L 11/30/24, 06:11 Hgb, (11.2-15.7) 7.9 g/dL L Today, 05:45 Hct, (36.0-46.0) 23.4 % L Today, 05:45 Plt Count, (130-400) 324 10^3/uL 11/30/24, 06:11 Complete Metabolic Panel: Sodium, (136-145) 141 mmol/L Today, 05:45 Potassium, (3.5-5.1) 2.8 mmol/L L* Today, 05:45 Chloride, (98-107) 105 mmol/L Today, 05:45 Carbon Dioxide, (21.0-32.0) 29.8 mmol/L Today, 05:45 BUN, (7-18) 11 mg/dL Today, 05:45 Creatinine, (0.55-1.02) 0.7 mg/dL Today, 05:45 Est GFR (CKD-EPI 2020), (mL/min/1.73m2) 87.37 Today, 05:45 Magnesium, (1.8-2.4) 1.9 mg/dL 11/29/24, 11:40 Calcium, (8.5-10.1) 7.8 mg/dL L Today, 05:45 Albumin, (3.4-5.0) 2.0 g/dL L Today, 05:45 Glucose, (74-106) 63 mg/dL L Today, 05:45 Hemoglobin A1c, (<5.7) 10.1 % H 11/20/24, 11:30 Liver Function Panel: ALT, (14-59) 376 U/L H Today, 05:45 AST, (15-37) 473 U/L H Today, 05:45 Coagulation Panel: INR, (0.9-1.1) 1.0 11/29/24, 12:17 PT, (9.1-11.1) 10.3 sec 11/29/24, 12:17 APTT, (20.6-30.2) 30.3 sec H 11/29/24, 12:17 Venous Blood Gas: VBG pH, (7.31-7.41) 7.44 H 11/24/24, 17:55 VBG pO2 47 mmHg 11/24/24, 17:55 VBG pCO2, (41-51) 45 mmHg 11/24/24, 17:55 VBG O2 Saturation 84 % 11/24/24, 17:55 VBG HCO3, (23-28) 30 mmol/L H 11/24/24, 17:55 VBG Base Excess, (-2-3) 6 mmol/L H 11/24/24, 17:55 VBG Total CO2, (24-29) 28 mmol/L 11/24/24, 17:55 Pancreas Panel: Lipase, (<78) < 6 U/L 11/29/24, 11:40 Thyroid Panel: TSH, (0.36-3.74) 1.53 uIU/mL 11/20/24, 11:30 Imaging and Studies Imaging and Studies Study information below may be from another EMR and interpreted by another provider. Please see original notes in EMR for more complete details. EKG Summary: 05/29: sinus, normal p axis. Anesthesia Assessment and Plan Anesthesia History Personal History: No History of Anesthesia Complications Family History: No Family History of Anesthesia Complications Exercise Tolerance Exercise Tolerance: Metabolic Equivalents>4 Pertinent Negatives Pertinent Negatives: No Symptoms of GERD Cardiac & Pulmonary Exam Cardiac Exam: Normal S1/S2 Heart Sounds Pulmonary Exam: Clear Bilateral Breath Sounds Implantable Cardiac Device Does patient have a Pacemaker or an ICD?: No Airway Exam Known Difficult Airway: No Mallampati Class: 2 Mouth Opening: Normal (> 3cm) Thyromental Distance: Greater than 3 cm Neck Range of Motion: Full ROM Neck Circumference: Normal Teeth Condition: Normal Dentition ASA Classification ASA Score: ASA 3 Emergency Case?: No NPO Status NPO Status: NPO Clears >2 hours, Solids >8 hours Anesthesia Plan Resuscitation Status: Full Code Anesthesia Technique: General Anesthesia Airway Planned: Endotracheal Tube Monitors Used: Standard Monitors and SedLine
[2024-12-01] MEDS: Lactated Ringers 1,000 ML 75 ML IV (14:45)
[2024-12-01] MEDS: Lidocaine 2% Jelly 11 ML SYR (15:08)
[2024-12-01] MEDS: Omnipaque 300 MG/ML 50 ML BTL (15:18)
--- NOTE | 2024-12-01 15:40 | DI.RAD_ITS ---
Exam(s) XR RETROGRADE IN OR EXAM: XR RETROGRADE IN OR CLINICAL HISTORY: Calculus of left ureter. TECHNIQUE: Fluoroscopy was provided for the referring physician for guidance with performing pain clinic injection procedure. COMPARISON: No exams were available for comparison FINDINGS: Please see procedure note for details. Fluoro time: 47.7 seconds RADIATION DOSE DELIVERED: cherry Quintanilla=8.1 mGy
--- NOTE | 2024-12-01 15:44 | ROE_ITS ---
Operative Note Operative Note PRE-OP DIAGNOSIS: Left ureteral stone POST-OP DIAGNOSIS: same PROCEDURE: cystoscopy, left retrograde pyelogram, left ureteral dilation, left ureteroscopy, insert left ureteral stent SURGEON: Santiago Vergara ANESTHESIA TYPE: Local By Surgeon and General LMA/ETT Refer to Anesthesia Record ESTIMATED BLOOD LOSS: 5 PATHOLOGY: none sent COMPLICATIONS: None Patient was transported to: PACU Patient's condition: stable Implants: 4.8 [place]ian by 22 to 30 cm left ureteral stent Indications: This is an 79-year-old woman who was identified as having an 8 mm left distal ureteral stone. Her stone had not progressed as far as we could tell. She presents now for stone manipulation. Findings: Edematous left ureteral orifice but no visible stone on ureteroscopy-suspect recently passed stone Procedure Description: The patient was given IV antibiotics and brought to the operating room on 12/01/2024. After successful induction of general anesthesia, she was placed in the dorsal lithotomy position. Her genitalia was prepped and draped. 2% Xylocaine jelly was instilled into the urethra to act as a local anesthetic. A 22 Divehi rigid cystoscope was passed through the urethra into the bladder. The bladder was inspected with the 30 degree lens. The right ureteral orifice appeared normal with no blood coming from the right side. The left orifice was markedly edematous and erythematous. I was barely able to cannulate the left ureteral orifice with a 5 Divehi access catheter. I injected Omnipaque to outline the left distal ureter. I did not see a filling defect within the lumen of the ureter. I then passed a guidewire through the lumen of the ureteral access catheter and advanced the wire up to the level of the kidney. I removed the access catheter and cystoscope. We dilated the edematous left distal ureter using a 4 cm UroMax balloon. I was then able to pass a semirigid ureteroscope through the urethra and into the bladder. I could advance the scope up the left ureter and I visualized no underlying stone. The ureter above the level of the ureterovesical junction was quite dilated. I then removed the semirigid ureteroscope and passed a dual-lumen catheter over the ureteral wire. I placed a second wire and chose one of the wires as a working wire and the other as a safety wire. The flexible ureteroscope was advanced over the working wire up to the renal pelvis. I inspected each of the calyces and found no underlying stone. I then passed a 4.8 Divehi variable length stent over the safety wire. The proximal end of the stent was curled in the renal pelvis and the distal end was curled within the bladder. The positioning of the stent was confirmed both fluoroscopically and cystoscopically. I suspect that her stone has recently passed which would account for both the dilated ureter and the edematous ureteral orifice.. Date of Procedure: 12/01/24
--- NOTE | 2024-12-01 16:21 | W.ANESPOSTOP ---
Postoperative Evaluation Date, Time and Location Date Performed: 12/01/24 Time Performed: 16:21 Patient Location: PACU Vital Signs Most Recent Imported Vital Signs: Most Recent Vital Signs Temp Pulse Resp BP Pulse Ox 36.9 C 64 15 141/56 H 97 12/01/24 16:16 12/01/24 07:25 12/01/24 07:25 12/01/24 07:25 12/01/24 07:25 Pain Score Most Recent Pain Score: Most Recent Pain Score Pain Level [Abdomen] 2 12/01/24 10:05 Pain Level 0 12/01/24 16:16 Assessment Mental Status: Awake (Alert & Oriented to Patient Baseline) Airway and Respiratory Function: Patent airway with normal (patient baseline) respiratory exam Cardiovascular Function: Hemodynamically Stable Hydration Status: Adequately Hydrated Nausea & Vomiting: No Nausea or Vomiting Pain: Pt. Denies Any Pain Peripheral Nerve Block: Patient did not receive a nerve block
[2024-12-01] MEDS: Glucose Oral Gel 15 GM/37.5 GM TUBE PO (17:10)
[2024-12-01] MEDS: Creon, Lipase 24,000 CAPCR 1 CAP PO (17:27)
--- NOTE | 2024-12-01 17:33 | NUR.NOTE ---
Nursing Note: pt arrived to the floor with undocumented cefazolin. PACU and OR called to clarify if it was given. PACU denied. OR supposed to call back if it wasnt given.
--- NOTE | 2024-12-01 18:36 | DSE_ITS ---
Date of service: 12/01/24 Time of Service: 18:36 DS: Diagnosis Discharge Diagnosis (1) Calculus of left ureter: Status: Acute (2) DIMITRY (acute kidney injury): Status: Acute (3) Elevated liver enzymes: Status: Acute (4) Adenocarcinoma of pancreas: Status: Acute (5) Acute on chronic anemia: Status: Acute (6) Diabetes mellitus: Status: Chronic (7) DVT prophylaxis: Status: Acute (8) Constipation: Status: Acute (9) Discharge planning issues: Status: Acute Discharge Plan Disposition Patient Disposition: Home Condition: Improving Discharge Details Reason For Visit: Nephrolithiasis, DIMITRY, Pancreatic Cancer Admit Date/Time: 12/01/24 13:30 Admit Provider: Yung Hair Attending Provider: Yung Hair Primary Care Provider: Sarah Weldon [facility] Course Hospital Course: 79 yo F with pancreatic cancer on chemotherapy with gemcitabine, IDDM who was initially seen in the ED 11/24/24 with left abdominal/flank pain and diagnosed with left UVJ stone and sent home with ketoralac and tamsulosin. She returned 11/29 with persistent pain and vomiting and CT showed left 8mm UVJ stone and was admitted. 12/01 she underwent cystoscopy and the stone had passed, stent placed in swollen UVJ. After the procedure her pain was better and she was eating and drinking, was discharged home. Her LFTs were elevated similar to previous related to pancreatic cancer. She had mild DIMITRY with Cr 1.4 on admission. She had been taking ketoralac and was dehydrated. Her Cr came down to 0.7 prior to discharge. Her potassium was low and was supplemented She was constipated, but had a BM with PEG and stimulant laxatives Splenic infarcts noted on CT that were present on previous CT. [facility] heme/onc coveraged states anticoagulation should be considered, but this was deferred to primary heme/onc team. Sugars were 50s-60s in early AM on 40 and then 35 units of glargine. Glargine can be tapered by PCP. She will need follow up with Dr. Vergara from urology for stent removal in 10 da ys. She already has f/u PCP (seen as inpatient by PCP Shiraz) and oncology. Recommendations for Follow Up Recommended tests to be ordered by follow up provider: BMP 1 week Home Meds and New Rx's Prescriptions: New ondansetron 4 mg Tablet,Disintegrating 4 mg PO Q8H PRN PRNQty: 15 0RF Continued fluticasone propionate 50 mcg/actuation spray,suspension 2 spray intranasal DAILY Qty: 16 2RF Rx Instructions: administer into each nostril estradiol 0.01 % (0.1 mg/gram) cream 1 g vaginal DAILY Qty: 42.5 5RF Rx Instructions: do daily until seen by Dr Smith again methenamine hippurate 1 gram tablet 1 g PO BID Qty: 180 3RF polyethylene glycol 3350 [Miralax] 17 gram/dose powder 17 g PO BID PRN (Reason: laxative effect) Qty: 238 4RF mirabegron [Myrbetriq] 50 mg tablet extended release 24 hr 50 mg PO DAILY Qty: 90 4RF insulin glargine [Lantus Solostar U-100 Insulin] 100 unit/mL (3 mL) insulin pen See Rx Instructions subcut BID Qty: 60 7RF Rx Instructions: 40 Unit subcutaneously a day; (DME) pen needle, diabetic [BD Ultra-Fine Mini Pen Needle] 31 gauge x 3/16 needle See Rx Instructions .ROUTE .MEDSUPPLY Qty: 90 4RF Rx Instructions: Daily E11.9 (DME) blood-glucose meter [FreeStyle Lite Meter] Kit See Rx Instructions .Route Qty: 1 0RF Rx Instructions: 3 times daily testing E11.9 Creon 24,000-76,000 -120,000 unit capsule,delayed release(DR/EC) 1 cap PO TID Qty: 270 4RF Rx Instructions: administer with meals and/or snacks Ordered by Opal Ontiveros technology manager at [facility] [place]. 05/29/23. -hb triamcinolone acetonide 0.1 % cream 1 applic TP DAILY PRN (Reason: irritation) Qty: 80 0RF quetiapine 50 mg tablet 50 mg PO BID Qty: 180 5RF (DME) pen needle, diabetic [BD Ultra-Fine Mini Pen Needle] 31 gauge x 3/16 needle See Rx Instructions .ROUTE .MEDSUPPLY Qty: 200 4RF Rx Instructions: use one BID E11.9 celecoxib 100 mg capsule 100 mg PO BID Qty: 180 2RF pregabalin 25 mg capsule 25 mg PO BID Qty: 180 3RF clonazepam 0.5 mg tablet 0.5 mg PO BID Qty: 180 3RF (DME) lancets [FreeStyle Lancets] 28 gauge misc See Rx Instructions .ROUTE .MEDSUPPLY Qty: 300 5RF Rx Instructions: 3 times daily testing E11.9 (DME) FreeStyle Test Strip See Rx Instructions .Route Qty: 300 4RF Rx Instructions: 3 times daily E11.9 tamsulosin 0.4 mg capsule 0.4 mg PO DAILY Qty: 13 0RF Rx Instructions: take one daily for 14 total days or until you pass your kidney stone Discontinued ketorolac 10 mg tablet 10 mg PO Q8H PRN (Reason: pain) Qty: 14 0RF Rx Instructions: maximum total duration of 5 days from all oral, intranasal, or parenteral formulations Discharge Instructions Instructions: Kidney stones in adults Additional Instructions: nausea medication was sent to [facility] Urology clinic will reach out Activity:: Activity as Tolerated Equipment/Supplies:: No Equipment Needed Diet:: As Tolerated Discharge Orders Discharge Orders: Discharge Order (Routine); Ordered 12/01/24 Ordered By: Yung Hair DS: Summary Time Spent with Patient providing and/or coordinating discharge services: Greater than 30 minutes Status at Discharge Functional status at discharge: independent ambulation Overall status at discharge: patient is back to baseline Mental Status: mental status grossly normal Speech and Movement: speech and movement normal Mood: congruent mood Affect: normal affect Quality:SDOH Health Related Social Needs: Health related social needs material hardship educatio n Health related social needs details has steady housing , not worried about it. Exam Narrative Exam Narrative: GEN: Alert and oriented, no acute distress at rest. LUNGS: CTAB with normal effort CV: RRR with 2/6 systolic murmur, gallops, or rubs. ABD: active bowel sounds, soft, nondistended. Mild left sided tenderness with deep palpation. No masses. EXT: no cyanosis, clubbing, or edema Psych Mental Status: mental status grossly normal Speech and Movement: speech and movement normal Mood: congruent mood Affect: normal affect DS: Data Vitals/I&O Vitals and I&O: Vital Signs Temperature 36.2 C L 12/01/24 18:15 Temperature Source Temporal Artery Scan 12/01/24 18:15 Pulse 73 12/01/24 18:15 Pulse Rhythm Regular 11/29/24 20:43 Pulse 66 12/01/24 16:21 Respiratory Rate 14 12/01/24 18:15 Respiratory Effort Normal 11/29/24 20:43 Respiratory Depth Normal 11/29/24 20:43 Respiratory Pattern Normal 11/29/24 20:43 Blood Pressure 136/61 12/01/24 18:15 Blood Pressure Mean 86 12/01/24 18:15 Blood Pressure Position Sitting 11/29/24 10:47 Pulse Oximetry 95 12/01/24 18:15 Respiratory End-tidal CO2 34 12/01/24 16:21 Oxygen Delivery Method Room Air 12/01/24 18:15 Oxygen Flow Rate 0 12/01/24 18:15 Pain Level 0 12/01/24 16:43 Intake & Output 11/30/24 12/01/24 12/01/24 23:59 11:59 23:59 Intake Total 2365.0 / 4365.0 4016.667 / 5075.417 1058.75 / 5075.417 Output Total 600 / 700 1400 / 1900 500 / 1900 Balance 1765.0 / 3665.0 2616.667 / 3175.417 558.75 / 3175.417 Weight 61.416 kg Intake: IV 1925.0 / 3925.0 3566.667 / 4625.417 1058.75 / 4625.417 Oral 440 / 440 450 / 450 Output: Urine 600 / 700 1400 / 1900 500 / 1900 Other: Urine Color Yellow Pale [place] Yellow Urine Appearance Cloudy Clear Hematuria Urine Odor Strong None None Comment strained - no stone Stool Size Moderate Stool Characteristics Formed Hard Hard Emesis Description None Data Completed and Pending Labs on day of discharge: Labs from last 24 hours 12/01/24 05:45 Hgb 7.9 L Hct 23.4 L Sodium 141 Potassium 2.8 L* Chloride 105 Carbon Dioxide 29.8 Anion Gap 6.2 BUN 11 Creatinine 0.7 Est GFR (CKD-EPI 2020) 87.37 Glucose 63 L Calcium 7.8 L Total Bilirubin 0.4 AST 473 H ALT 376 H Alkaline Phosphatase 881 H Total Protein 6.0 L Albumin 2.0 L PFSH All Active Problems (Updated 12/01/24 @ 18:35 by Yung Hair) Hypokalemia (Acute) Constipation (Acute) Discharge planning issues (Acute) DVT prophylaxis (Acute) Splenic infarct (Acute) Kidney stone (Chronic) Calculus of left ureter (Acute) Abdominal pain (Acute) Elevated liver enzymes (Acute) Diabetes mellitus (Chronic) Nausea & vomiting (Acute) DIMITRY (acute kidney injury) (Acute) Impaired functional mobility, balance, gait, and endurance (Acute) Peripheral neuropathy (Acute) Diabetic amyotrophy (Acute) Peroneal neuropathy (Acute) Heart murmur (Acute) Balance problem (Acute) Foot drop, left (Acute) Advanced care planning/counseling discussion (Acute) Low back pain potentially associated with radiculopathy (Acute) Hip pain (Acute) Diabetes mellitus with neuropathy (Acute) Nail dystrophy (Acute) Memory changes (Acute) Mass, brain (Acute) MRI 04/17/23 3mm small enhancing focus ? mets Adenocarcinoma of pancreas (Acute) bx 03/29 [place] [facility] Hypertension (Chronic) Acute on chronic anemia (Acute) Liver failure, acute (Acute) Hyperbilirubinemia (Acute) Transaminitis (Acute) Jaundice (Acute) OAB (overactive bladder) (Acute) Lichen planus (Chronic) mouth Diverticulosis of colon without diverticulitis (Chronic) Anxiety (Chronic) chronic benzodiazipine use 03/27/17 FLOR-7 SCORE=7 07/02/17 FLOR-7 SCORE=13 Medical History (Updated 12/01/24 @ 18:35 by Yung Hair) Thrombocytopenia Nuclear age-related cataract, left eye Ingrown nail Osteoporosis Insomnia Hematuria Neg work-up 2013. UA not meeting RBC in years since for repeat Ingrowing toenail (04/14/14) Hematuria unspeficified; asymptomatic; neg W/U Fatigue 06/26/12 Ingrown toenail 04/14/14 Urinary tract infectious disease recurrent Right hip pain (03/27/17) Hypercholesterolemia Generalized osteoarthrosis low back pain; xray + DJD Surgical History Nuclear age-related cataract, right eye History of cataract surgery History of bladder repair surgery Status post laparoscopic hysterectomy H/O bladder repair surgery sling S/P laparoscopic hysterectomy 05/07/83 partial, dysmenorrhea Hysterectomy, Laproscopic (~1983) partial; dysmenorrhea Bladder Surgery (~1999) SLING Family History Mother , age 92 Dementia Father , age 78 Cancer Brother Asthma Brother ALS (amyotrophic lateral sclerosis) Brother No problems noted. Maternal Grandfather , age 50 Black lung disease Paternal Grandfather , age 65 Black lung disease Maternal Grandmother , age 80 No problems noted. Paternal Grandmother , age 84 No problems noted. Son No problems noted. Son No problems noted. Social History Smoking/Tobacco Use Status: Former Tobacco Use tobacco type: cigarettes Quit Date: 05/07/97 Tobacco: How many years used: 30 Second Hand Exposure: Yes Smoking risk assessment performed?: Yes Alcohol Intake: current Alcohol Intake frequency: holidays/special occasions only Drug use: Never Substance use type: does not use Adopted: No Household members: spouse Housing: house Number of Children: 2 number of grandchildren: 4 Communication Needs: None Education Level: college Details: A.S. 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 Pets and animals: No Sexually active: No Do you think of yourself as: straight/heterosexual Current gender identity: female What is your relationship status?: How often do you talk on the phone with friends or family?: three or more times per week How often do you get together with friends or relatives?: decline to answer How often do you attend orthodox or religion services?: 4 or more times per year Do you belong to any clubs or organized social groups?: yes Panel score (0-1 are the most socially isolated patients): 4 What type of physical activity do you participate in: walking, aerobic, bicycling and swimming Duration: 30-45 minutes/day Frequency: 3-4 times per week Lorraine/Episcopal: Rastafari Special lorraine needs: No Seatbelt use: always Helmet use: Yes Helmet use: always Drive intox or ride w/intox mobile lounge driver or operator: No Firearms in home: Yes Do you feel safe at home: Yes Do you feel safe in your relationship?: Yes Victim of physical abuse: No Victim of emotional abuse: No Victim of sexual abuse: No Would you like helpful sources: No Additional Social history: lives with of 59 years [place] in [place] Time Spent with Patient Time Spent with Patient: 45-69 minutes Time was spent: preparing to see the patient(eg.review tests), obtaining and/or reviewing separately otained hiistory, ordering medications,tests, procedures, referring, communicating with other health resident care manager rn, indepentently interpreting results, counseling the patient and care coordination
== END 2024-12-01 19:29 | disposition home or self-care (01) | DRG 660 ==
LOC: ER 18:25 → MS 20:22
PROVIDERS: Urology; Admitting Provider Family Medicine; Emergency Provider Emergency Medicine; PCP Family Medicine; Responsible Provider Family Medicine; Visit Provider Family Medicine
PROC: 0T778DZ Dilation of Left Ureter with Intraluminal Device, Via Natural or Artificial Opening Endoscopic (ICD-10-PCS; CPT 52332; principal; 2024-12-01 12:45)
DX: N17.9 Acute kidney failure, unspecified (principal); C25.9 Malignant neoplasm of pancreas, unspecified; N20.1 Calculus of ureter; D73.5 Infarction of spleen; R74.8 Abnormal levels of other serum enzymes; D64.9 Anemia, unspecified; K59.00 Constipation, unspecified; Z79.4 Long term (current) use of insulin; R74.01 Elevation of levels of liver transaminase levels; R41.3 Other amnesia; Z74.09 Other reduced mobility; E87.6 Hypokalemia; E11.42 Type 2 diabetes mellitus with diabetic polyneuropathy; E11.44 Type 2 diabetes mellitus with diabetic amyotrophy; M21.372 Foot drop, left foot; L60.3 Nail dystrophy; I10 Essential (primary) hypertension; F41.9 Anxiety disorder, unspecified; K57.30 Diverticulosis of large intestine without perforation or abscess without bleeding; N32.81 Overactive bladder; D69.6 Thrombocytopenia, unspecified; E78.00 Pure hypercholesterolemia, unspecified; M81.0 Age-related osteoporosis without current pathological fracture; G47.00 Insomnia, unspecified; Z66 Do not resuscitate
CPT/HCPCS: 52332; 00123; 36415; 71275; 80048; 80053; 80076; 83690; 96361; 96365; 96372; 96375; 99222; 99285; J1650; 71045; 74174; 74420; 81003; 81015; 82248; 83735; 85014; 85018; 85025; 85610; 85730; 87086; 99223; 99232; 99239; G0378; J0131; J0780; J1100; J1815; J2003; J2270; J2405; J2543; J2704; J3010; J3480; Q9967

== ENCOUNTER 2025-01-01 03:50 | Outpatient (RCR) | payer OTHER, SELFPAY ==
[2024-12-11] MEDS: Normal Saline Flush 10 ML SYR IVP (11:04)
[2024-12-11 11:23] LABS: HCT 29.6 % (36.0-46.0); HGB 9.6 g/dL (11.2-15.7); MCH 29.3 pg (27.0-33.0); MCHC 32.4 % (32.0-36.0); MCV 90 fL (80-95); MPV 10.3 fL (8.0-11.0); RBC 3.28 10^6/uL (3.93-5.22); RDW 15.5 % (11.7-14.6); RDW-SD 49.2 fL; WBC 9.17 10^3/uL (4.4-10.8)
[2024-12-11 11:47] LABS: ALT 90 U/L (14-59); AST 45 U/L (15-37); Albumin 2.3 g/dL (3.4-5.0); Alkaline Phosphatase 866 U/L (46-116); Anion Gap 4.8 mmol/L (3-11); BUN 18 mg/dL (7-18); Bilirubin, Total 0.2 mg/dL (0.2-1.0); CO2 31.2 mmol/L (21.0-32.0); Calcium 8.4 mg/dL (8.5-10.1); Chloride 102 mmol/L (98-107); Estimated GFR 74.44 (mL/min/1.73m2); Glucose 337 mg/dL (74-106); Potassium 4.6 mmol/L (3.5-5.1); Sodium 138 mmol/L (136-145); Total Protein 6.4 g/dL (6.4-8.2)
[2024-12-11 12:05] LABS: Platelet Count 973 10^3/uL (130-400)
[2024-12-11 13:09] LABS: Abs Immature Grans 0.09 10^3/uL (0.0-0.06); Immature Grans % 1.0 %
[2024-12-12 12:23] LABS: CA 19-9 1476 U/mL (<35)
[2024-12-18] MEDS: Normal Saline Flush 10 ML SYR IVP (08:48)
[2024-12-18 09:05] LABS: Abs Immature Grans 0.14 10^3/uL (0.0-0.06); HCT 29.7 % (36.0-46.0); HGB 9.6 g/dL (11.2-15.7); Immature Grans % 1.1 %; MCH 28.7 pg (27.0-33.0); MCHC 32.3 % (32.0-36.0); MCV 89 fL (80-95); MPV 10.0 fL (8.0-11.0); RBC 3.34 10^6/uL (3.93-5.22); RDW 15.7 % (11.7-14.6); RDW-SD 50.8 fL; WBC 12.96 10^3/uL (4.4-10.8)
[2024-12-18 09:36] LABS: Platelet Count 711 10^3/uL (130-400)
[2024-12-18 10:05] LABS: ALT 240 U/L (14-59); AST 260 U/L (15-37); Albumin 2.4 g/dL (3.4-5.0); Anion Gap 8.6 mmol/L (3-11); BUN 19 mg/dL (7-18); Bilirubin, Total 1.2 mg/dL (0.2-1.0); CO2 26.4 mmol/L (21.0-32.0); Calcium 8.8 mg/dL (8.5-10.1); Chloride 103 mmol/L (98-107); Estimated GFR 87.37 (mL/min/1.73m2); Glucose 299 mg/dL (74-106); Potassium 4.4 mmol/L (3.5-5.1); Sodium 138 mmol/L (136-145); Total Protein 6.7 g/dL (6.4-8.2)
[2024-12-18 10:11] LABS: Alkaline Phosphatase 1401 U/L (46-116)
[2024-12-18 23:17] LABS: CA 19-9 1682 U/mL (<35)
[2025-01-01 13:34] LABS: Abs Immature Grans 0.02 10^3/uL (0.0-0.06); HCT 29.0 % (36.0-46.0); HGB 9.5 g/dL (11.2-15.7); Immature Grans % 0.4 %; MCH 29.6 pg (27.0-33.0); MCHC 32.8 % (32.0-36.0); MCV 90 fL (80-95); MPV 10.8 fL (8.0-11.0); Platelet Count 308 10^3/uL (130-400); RBC 3.21 10^6/uL (3.93-5.22); RDW 15.6 % (11.7-14.6); RDW-SD 51.4 fL; WBC 5.66 10^3/uL (4.4-10.8)
[2025-01-01] MEDS: Normal Saline Flush 10 ML SYR IVP (13:42)
[2025-01-01 14:02] LABS: ALT 146 U/L (14-59); AST 101 U/L (15-37); Albumin 2.3 g/dL (3.4-5.0); Anion Gap 3.1 mmol/L (3-11); BUN 22 mg/dL (7-18); Bilirubin, Total 0.4 mg/dL (0.2-1.0); CO2 29.9 mmol/L (21.0-32.0); Calcium 8.6 mg/dL (8.5-10.1); Chloride 105 mmol/L (98-107); Estimated GFR 87.37 (mL/min/1.73m2); Glucose 305 mg/dL (74-106); Potassium 4.1 mmol/L (3.5-5.1); Sodium 138 mmol/L (136-145); Total Protein 6.7 g/dL (6.4-8.2)
[2025-01-01 14:07] LABS: Alkaline Phosphatase 1504 U/L (46-116)
[2025-01-02 11:29] LABS: CA 19-9 1729 U/mL (<35)
== END 2025-01-04 23:59 | disposition home or self-care (01) ==
LOC: INF 03:50
PROVIDERS: PCP Family Medicine; Visit Provider Internal Medicine Hematology & Oncology
DX: C25.0 Malignant neoplasm of head of pancreas (principal); Z45.2 Encounter for adjustment and management of vascular access device
CPT/HCPCS: 36591; 80053; 85027; 85007; 85025; 86301

== ENCOUNTER 2025-01-09 05:28 | Outpatient (CLI) | payer OTHER, SELFPAY ==
--- NOTE | 2025-01-09 | DI.CT_ITS ---
Exam(s) CT CHEST/ABD/PEL W EXAM: CT CHEST/ABD/PEL W CLINICAL HISTORY: PANCREATIC CANCER C25.0 STAGE IV EVAL TREATMENT RESPONSE. TECHNIQUE: Imaging Protocol: Axial computed tomography images with coronal and sagittal reformatted images were created and reviewed. Computer aided detection (CAD) was utilized. CONTRAST MATERIAL: Intravenous: Omnipaque 350 Contrast volume:100 ml Oral: yes COMPARISON: CT CT CHEST/ABD/PEL W from 08/15/[address] THORAX ABD/PEL CTA from 11/29/2024 FINDINGS: CHEST: Pulmonary parenchyma: No consolidation. There is a small 5.5 millimeter nodule in the posterior right lower lobe which measures less than 3 millimeters on the previous exam. There is a stable pleural based opacity at the right posterior lower lobe. There is a new 3 millimeter nodule in the right middle lobe. Multiple tiny rounded calcifications consistent with granulomas are again noted. There is mild biapical scarring. Tracheobronchial tree: No bronchiectasis. No mucous plugging.No bronchial wall thickening. Pleura: No effusion or pneumothorax. Mediastinum: Within normal limits. Pulmonary arteries: Well opacified with IV contrast. No visible emboli. Cardiovascular: The heart size is normal. No pericardial effusion. Thoracic aorta non-dilated. Bones: Unremarkable for age. No lytic or blastic lesions. No compression fractures. Soft tissues: Unremarkable. Port over right upper chest. ABDOMEN and PELVIS: Liver: Normal density. No suspicious mass. Gallbladder and biliary tract: A biliary stent is again noted. There is pneumobilia. Findings appear stable. Pancreas: Stable appearance of ill-defined densities in the region of the pancreatic head. Pancreatic body and tail are atrophic. Spleen: Normal size. Infarct again noted at the superior portion which appears unchanged.. Kidneys: Normal size, contour and axis. No radiodense stones. No obstructive uropathy. The previously noted left hydronephrosis is no longer present. No suspicious masses seen. Adrenal glands: No masses seen. Vasculature: Abdominal aorta non-dilated. Severe attenuation vs occlusion of the superior mesenteric vein is again noted at the level of the biliary stent. There are collateral vessels at the level of the splenic hilum. Portal vein appears patent. Lymph nodes: Multiple small mesenteric lymph nodes, grossly unchanged. Soft tissues: Unremarkable. Bladder: Unremarkable. Bowel: A stent is again noted extending from the region of the gastric antrum through the lower descending portion of the duodenum. Some contrast is seen within the stent. There is no abnormal gastric distension to suggest obstruction. No small-bowel obstruction or bowel wall thickening. The administer ed oral contrast extends to the level of the terminal ileum. Large quantity of stool. Appendix normal. Sigmoid diverticulosis. Peritoneal cavity: No ascites. No focal collection. No mesenteric inflammatory response. No free air. Bones: Unremarkable for age. Reproductive organs: Unremarkable hysterectomy. IMPRESSION: New 3 millimeter right middle lobe pulmonary nodule. Increased size of right lower lobe pulmonary nodule. Stable appearance of ill-defined mass or on the pancreatic head. Stable appearance of biliary and gastro duodenal stents. Stable appearance of splenic infarct. Stable appearance of severe attenuation versus occlusion of the splenic vein. Resolution of previously noted left hydronephrosis. The stone is no longer seen. RADIATION DOSE DELIVERED: 567.59mGy.cm Total DLP DATA REPOSITORY: All CT scans at this facility are submitted to the National Radiology Data Registry (NRDR) Dose Index Registry (DIR) with the [employer] (ACR). RADIATION OPTIMIZATION: All CT scans at this facility use at least one of these dose optimization techniques: automated exposure control; mA and/or kV adjustment per patient size (includes targeted exams where dose is matched to clinical indication); or iterative reconstruction.
[2025-01-09] MEDS: Barium Sulfate 2% W/V-Creamy Vanilla Smoothie 450 ML BTL PO (10:56)
[2025-01-09] MEDS: Barium Sulfate 2% W/V-Berry Smoothie 450 ML BTL PO (10:57)
[2025-01-09] MEDS: Omnipaque 350 MG/ML 500 ML BTL-Imaging package IJ (12:49)
[2025-01-09] MEDS: Normal Saline - Diluent 50 ML VIAL IJ (12:50)
[2025-01-09] MEDS: Normal Saline Flush 10 ML SYR IVP (12:50)
== END 2025-01-09 05:48 ==
LOC: DI 05:28
PROVIDERS: PCP Family Medicine; Visit Provider Nurse Practitioner Family
DX: C25.0 Malignant neoplasm of head of pancreas (principal); R91.1 Solitary pulmonary nodule
CPT/HCPCS: 74177; 71260

== ENCOUNTER 2025-02-03 02:35 | Outpatient (RCR) | payer OTHER, SELFPAY ==
[2025-01-09] MEDS: Normal Saline Flush 10 ML SYR IVP (10:51)
[2025-01-15 12:36] LABS: Abs Immature Grans 0.02 10^3/uL (0.0-0.06); HCT 30.8 % (36.0-46.0); HGB 10.1 g/dL (11.2-15.7); Immature Grans % 0.3 %; MCH 29.4 pg (27.0-33.0); MCHC 32.8 % (32.0-36.0); MCV 90 fL (80-95); MPV 10.6 fL (8.0-11.0); Platelet Count 453 10^3/uL (130-400); RBC 3.43 10^6/uL (3.93-5.22); RDW 14.8 % (11.7-14.6); RDW-SD 48.4 fL; WBC 7.85 10^3/uL (4.4-10.8)
[2025-01-15] MEDS: Normal Saline Flush 10 ML SYR IVP (13:35)
[2025-01-15 13:45] LABS: ALT 137 U/L (14-59); AST 72 U/L (15-37); Albumin 2.5 g/dL (3.4-5.0); Anion Gap 6.0 mmol/L (3-11); BUN 18 mg/dL (7-18); Bilirubin, Total 0.4 mg/dL (0.2-1.0); CO2 30.0 mmol/L (21.0-32.0); Calcium 9.0 mg/dL (8.5-10.1); Chloride 101 mmol/L (98-107); Glucose 242 mg/dL (74-106); Potassium 3.9 mmol/L (3.5-5.1); Sodium 137 mmol/L (136-145); Total Protein 7.1 g/dL (6.4-8.2)
[2025-01-15 13:49] LABS: Alkaline Phosphatase 1486 U/L (46-116)
[2025-01-16 14:57] LABS: CA 19-9 2047 U/mL (<35)
[2025-01-29] MEDS: Normal Saline Flush 10 ML SYR IVP (12:25)
[2025-01-29 13:10] LABS: Abs Immature Grans 0.04 10^3/uL (0.0-0.06); HCT 30.5 % (36.0-46.0); HGB 10.3 g/dL (11.2-15.7); Immature Grans % 0.6 %; MCH 30.0 pg (27.0-33.0); MCHC 33.8 % (32.0-36.0); MCV 89 fL (80-95); MPV 10.8 fL (8.0-11.0); Platelet Count 418 10^3/uL (130-400); RBC 3.43 10^6/uL (3.93-5.22); RDW 14.3 % (11.7-14.6); RDW-SD 46.3 fL; WBC 7.12 10^3/uL (4.4-10.8)
[2025-01-29 13:49] LABS: ALT 172 U/L (14-59); AST 150 U/L (15-37); Albumin 2.3 g/dL (3.4-5.0); Anion Gap 7.3 mmol/L (3-11); BUN 15 mg/dL (7-18); Bilirubin, Total 1.8 mg/dL (0.2-1.0); CO2 26.7 mmol/L (21.0-32.0); Calcium 8.3 mg/dL (8.5-10.1); Chloride 99 mmol/L (98-107); Glucose 344 mg/dL (74-106); Potassium 4.0 mmol/L (3.5-5.1); Sodium 133 mmol/L (136-145); Total Protein 7.0 g/dL (6.4-8.2)
[2025-01-29 13:51] LABS: Alkaline Phosphatase 1829 U/L (46-116)
[2025-01-30 12:17] LABS: CA 19-9 2213 U/mL (<35)
[2025-02-03] MEDS: Normal Saline Flush 10 ML SYR IVP (10:02)
[2025-02-03 10:51] LABS: ALT 163 U/L (14-59); AST 159 U/L (15-37); Albumin 2.4 g/dL (3.4-5.0); Anion Gap 4.7 mmol/L (3-11); BUN 22 mg/dL (7-18); Bilirubin, Total 0.5 mg/dL (0.2-1.0); CO2 29.3 mmol/L (21.0-32.0); Calcium 8.2 mg/dL (8.5-10.1); Chloride 104 mmol/L (98-107); Glucose 271 mg/dL (74-106); Potassium 4.1 mmol/L (3.5-5.1); Sodium 138 mmol/L (136-145); Total Protein 6.9 g/dL (6.4-8.2)
[2025-02-03 10:57] LABS: Alkaline Phosphatase 1500 U/L (46-116)
== END 2025-02-03 23:59 | disposition home or self-care (01) ==
LOC: INF 02:35
PROVIDERS: PCP Family Medicine; Visit Provider Internal Medicine Hematology & Oncology
DX: Z45.2 Encounter for adjustment and management of vascular access device (principal); C25.0 Malignant neoplasm of head of pancreas
CPT/HCPCS: 36415; 36591; 80053; 96523; 85025; 86301

== ENCOUNTER 2025-02-26 11:03 | Inpatient (IN) | payer OTHER, SELFPAY ==
[2025-02-26] VITALS (38 sets, daily range): BP systolic 92–177; BP diastolic 28–84; PULSE 55–100; RESP 13–24; TEMP 36.1–39; O2SAT 92–100
--- NOTE | 2025-02-26 11:15 | RT.EKG_ITS ---
APPROVED REPORT Exam: Resting ECG Reason for Exam: Tachacardia Patient Location: E HR:95 bpm ECG Measurements Heart Rate 95 AXIS KS 164 P 91 QRSd 82 QRS 75 QT 337 T 29 QTc 425 Conclusion Sinus rhythm...normal P axis, V-rate 60- [address] depression, diffuse leads...ST <-0.03mV, ant/lat/inf No Occlusion MO
--- NOTE | 2025-02-26 11:30 | DI.CT_ITS ---
Exam(s) CT HEAD WO EXAM: CT HEAD WO CLINICAL HISTORY: confusion, fever. TECHNIQUE: Imaging Protocol: Axial computed tomography images with coronal and sagittal reformatted images were created and reviewed COMPARISON: No exams were available for comparison FINDINGS: Ventricles and Extra axial spaces: Normal in size and morphology for the patient's age. Hemorrhage: None. Cerebral parenchyma: No evidence of acute infarct or mass. Mild atrophy consistent with the patient's age. Mild white matter changes of small vessel disease. Midline shift: None. Brainstem/Cerebellum: Normal. Bones: No skull or facial fractures. Visualized Paranasal sinuses:Clear. Mastoids: Clear. Soft Tissues: Unremarkable. ORBITS: Unremarkable. PITUITARY: Not enlarged. IMPRESSION: No acute intracranial process. RADIATION DOSE DELIVERED: Total DLP DATA REPOSITORY: All CT scans at this facility are submitted to the National Radiology Data Registry (NRDR) Dose Index Registry (DIR) with the [employer] (ACR). RADIATION OPTIMIZATION: All CT scans at this facility use at least one of these dose optimization techniques: automated exposure control; mA and/or kV adjustment per patient size (includes targeted exams where dose is matched to clinical indication); or iterative reconstruction.
--- NOTE | 2025-02-26 11:45 | DI.CT_ITS ---
Exam(s) CT CHEST/ABD/PEL W EXAM: CT CHEST/ABD/PEL W CLINICAL HISTORY: panc ca/splenic ifct, pain abd with temp 103. TECHNIQUE: Imaging Protocol: Axial computed tomography images with coronal and sagittal reformatted images were created and reviewed. Computer aided detection (CAD) was utilized. CONTRAST MATERIAL: Intravenous: Omnipaque 350 Contrast volume:79 ml Oral: / no COMPARISON: CT CT CHEST/ABD/PEL W from 01/09/2025 FINDINGS: CHEST: Pulmonary parenchyma: No consolidation. No ground-glass infiltrates. No evidence of pulmonary edema. Interval increase in size of previously noted nodule at the right posterior lower lobe now measuring 8 x 6 millimeters compared with 5 millimeters on the previous exam. Tracheobronchial tree: No bronchiectasis. No mucous plugging.No bronchial wall thickening. Pleura: No effusion or pneumothorax. Mediastinum: Within normal limits. Pulmonary arteries: No visible emboli. Exam not timed for evaluation of pulmonary arteries. Cardiovascular: No pericardial effusion. Thoracic aorta non-dilated. Bones: Unremarkable for age. No lytic or blastic lesions. No compression fractures. Soft tissues: Port over right upper chest. ABDOMEN and PELVIS: Liver: Normal density. The portal vein is severely narrowed adjacent to the biliary stent. 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 Gallbladder and biliary tract: Biliary air again noted. Biliary stent in place, unchanged. No evidence of stones or wall thickening. Pancreas: Ill-defined densities are again noted in the pancreatic head. Multiple calcifications. Somewhat atrophic, particularly the tail. Spleen: Stable appearance of splenic infarct. Kidneys: Normal size, contour and axis. No radiodense stones. No obstructive uropathy. No suspicious masses seen. Adrenal glands: No masses seen. Aorta: Abdominal portion non-dilated. Lymph nodes: Multiple enlarged mesenteric lymph nodes. Small para-aortic lymph nodes also present. Soft tissues: Unremarkable. Bladder: Nearly empty but unremarkable. Bowel: A duodenal stent is again noted. Thickening of the gastric antrum and duodenum again noted. Small bowel is unremarkable. The appendix appears normal. There is diverticulosis of the sigmoid but no evidence of diverticulitis. Peritoneal cavity: Mild amount of ascites seen around the liver, increasing when compared the prior exam. Fluid seen in the left upper quadrant, adjacent to the spleen. Small amount of fluid seen in low pelvis. No focal collection. Enlarged mesenteric lymph nodes are present. No free air. Bones: Degenerative changes. No lytic or blastic lesions are identified. Reproductive organs: Hysterectomy. IMPRESSION: No acute abnormality in the chest, abdomen or pelvis. Stable appearance of ill-defined mass of the head of the pancreas, splenic infarct. Small amount of ascites, increased from prior exam. Increased size of mesenteric and para-aortic lymph nodes. Stable appearance of stent extending from the gastric antrum through the descending duodenum. Stable biliary air. Stable appearance of biliary stent. RADIATION DOSE DELIVERED: Total DLP DATA REPOSITORY: All CT scans at this facility are submitted to the National Radiology Data Registry (NRDR) Dose Index Registry (DIR) with the [employer] (ACR). RADIATION OPTIMIZATION: All CT scans at this facility use at least one of these dose optimization techniques: automated exposure control; mA and/or kV adjustment per patient size (includes targeted exams where dose is matched to clinical indication); or iterative reconstruction.
[2025-02-26 12:32] LABS: COVID-19 PCR Negative (Negative); RSV PCR Negative (Negative)
[2025-02-26] MEDS: Normal Saline 1,000 ML 1000 ML IV (12:49)
[2025-02-26] MEDS: Ondansetron 4 MG/2 ML VIAL IVP (13:01)
[2025-02-26] MEDS: ACETAMINOPHEN 500 MG/50 ML BAG 200 MG IVPB (13:03)
[2025-02-26 13:05] LABS: BE (Venous) 3 mmol/L (-2-3); HCO3 (Venous) 26 mmol/L (23-28); TCO2 (Venous) 24 mmol/L (24-29); pCO2 (Venous) 36 mmHg (41-51); pO2 (Venous) 115 mmHg
[2025-02-26] MEDS: CEFEPIME 2 GM in Normal Saline 100 ML IVPB (13:05)
[2025-02-26 13:06] LABS: Abs Immature Grans 0.08 10^3/uL (0.0-0.06); HCT 33.1 % (36.0-46.0); HGB 11.0 g/dL (11.2-15.7); Immature Grans % 0.6 %; MCH 29.0 pg (27.0-33.0); MCHC 33.2 % (32.0-36.0); MCV 87 fL (80-95); MPV 10.4 fL (8.0-11.0); Platelet Count 361 10^3/uL (130-400); RBC 3.79 10^6/uL (3.93-5.22); RDW 13.8 % (11.7-14.6); RDW-SD 43.2 fL; WBC 13.10 10^3/uL (4.4-10.8)
[2025-02-26 13:07] LABS: O2 Sat (Venous) > 99 %
[2025-02-26 13:31] LABS: ALT 154 U/L (14-59); AST 159 U/L (15-37); Albumin 2.4 g/dL (3.4-5.0); Anion Gap 6.7 mmol/L (3-11); BUN 17 mg/dL (7-18); Bilirubin, Total 0.7 mg/dL (0.2-1.0); CO2 28.3 mmol/L (21.0-32.0); Calcium 8.7 mg/dL (8.5-10.1); Chloride 104 mmol/L (98-107); Potassium 3.6 mmol/L (3.5-5.1); Sodium 139 mmol/L (136-145); Total Protein 7.4 g/dL (6.4-8.2); Troponin I 9 ng/L (<or=51)
[2025-02-26 13:34] LABS: Alkaline Phosphatase 1740 U/L (46-116); Glucose 49 mg/dL (74-106); Lipase < 6 U/L (<78)
[2025-02-26 13:39] LABS: Glucose Negative (Negative)
[2025-02-26] MEDS: Normal Saline - Diluent 50 ML VIAL IJ (13:45)
[2025-02-26] MEDS: Dextrose 50%-Water 25 GM/50 ML SYR IVP (13:45)
[2025-02-26] MEDS: Omnipaque 350 MG/ML 500 ML BTL-Imaging package IJ (13:45)
[2025-02-26 13:51] LABS: C & S Indicated? No
--- NOTE | 2025-02-26 15:03 | W.ED.GENAD ---
Discharge Plan Disposition Patient Disposition: Admit to [facility] Condition: Stable Discharge Details Clinical Impression: Fever, SIRS (systemic inflammatory response syndrome), Pancreatic cancer, Hypoglycemia Primary Care Provider: Sarah Weldon ED Provider: Maureen Rebolledo Home Meds and New Rx's Prescriptions: No Action fluticasone propionate 50 mcg/actuation spray,suspension 2 spray intranasal DAILY Qty: 16 2RF Rx Instructions: administer into each nostril estradiol 0.01 % (0.1 mg/gram) cream 1 g vaginal DAILY Qty: 42.5 5RF Rx Instructions: do daily until seen by Dr Smith again methenamine hippurate 1 gram tablet 1 g PO BID Qty: 180 3RF ondansetron 8 mg tablet,disintegrating 8 mg PO Q8H PRN PRN (Reason: nausea and vomiting) Qty: 90 5RF Rx Instructions: may take every am to PREVENT nausea and 2 additional times daily if needed polyethylene glycol 3350 [Miralax] 17 gram/dose powder 17 g PO BID PRN (Reason: laxative effect) Qty: 238 4RF mirabegron [Myrbetriq] 50 mg tablet extended release 24 hr 50 mg PO DAILY Qty: 90 4RF insulin glargine [Lantus Solostar U-100 Insulin] 100 unit/mL (3 mL) insulin pen See Rx Instructions subcut BID Qty: 60 7RF Rx Instructions: 40 Unit subcutaneously a day; (DME) pen needle, diabetic [BD Ultra-Fine Mini Pen Needle] 31 gauge x 3/16 needle See Rx Instructions .ROUTE .MEDSUPPLY Qty: 90 4RF Rx Instructions: Daily E11.9 (DME) blood-glucose meter [FreeStyle Lite Meter] Kit See Rx Instructions .Route Qty: 1 0RF Rx Instructions: 3 times daily testing E11.9 Creon 24,000-76,000 -120,000 unit capsule,delayed release(DR/EC) 1 cap PO TID Qty: 270 4RF Rx Instructions: administer with meals and/or snacks Ordered by Opal Ontiveros blade grinder at [facility] [place]ie Wilder. 05/29/23. -hb triamcinolone acetonide 0.1 % cream 1 applic TP DAILY PRN (Reason: irritation) Qty: 80 0RF quetiapine 50 mg tablet 50 mg PO BID Qty: 180 5RF (DME) pen needle, diabetic [BD Ultra-Fine Mini Pen Needle] 31 gauge x 07/20 needle See Rx Instructions .ROUTE .MEDSUPPLY Qty: 200 4RF Rx Instructions: use one BID E11.9 celecoxib 100 mg capsule 100 mg PO BID Qty: 180 2RF pregabalin 25 mg capsule 25 mg PO BID Qty: 180 3RF clonazepam 0.5 mg tablet 0.5 mg PO BID Qty: 180 3RF (DME) lancets [FreeStyle Lancets] 28 gauge misc See Rx Instructions .ROUTE .MEDSUPPLY Qty: 300 5RF Rx Instructions: 3 times daily testing E11.9 (DME) FreeStyle Test Strip See Rx Instructions .Route Qty: 300 4RF Rx Instructions: 3 times daily E11.9 insulin aspart U-100 100 unit/mL (3 mL) insulin pen 4 unit subcut AC MDD 12 Qty: 15 5RF Rx Instructions: give 4 units IF blood sugar is over 200 HPI General Date/Time Provider Initiated Documentation: 02/26/25 11:26. HPI Narrative: This 80-year-old female who is quite complex with a history of pancreatic cancer with a nodule in her lung and biliary and duodenal stents presents with some nausea without vomiting today and weak with some mild confusion at home. was unable to get patient out of bed reportedly. She had rigors when he walked into her room. Patient states she was scheduled for chemotherapy today she last had chemotherapy 2 weeks ago. Patient denies any chest pain or shortness of breath. She has had some nausea but denies any significant abdominal pain. She denies any diarrhea and denies any known sick contacts. She denies any shortness of breath. She denies any headache or stiff neck. She denies any rashes or lesions or tick bites. Related Data Home Medications Medication Instructions Recorded Confirmed pen needle, diabetic 31 gauge x #90 ea 10/31/22 02/26/2507/20 (BD Ultra-Fine Mini Pen Needle) blood-glucose meter (FreeStyle #1 ea 04/03/23 02/26/25 Lite Meter kit) polyethylene glycol 3350 17 17 g PO BID PRN laxative effect 04/23/23 02/26/25 gram/dose oral powder (Miralax) #238 grams Creon 24,000-76,000-120,000 unit 1 cap PO TID #270 caps 05/30/23 02/26/25 capsule,delayed release (sraora-hlrsqqnr-rbbcxab (pork)) estradiol 0.01% (0.1 mg/gram) 1 g vaginal DAILY #42.5 grams 06/21/23 02/26/25 vaginal cream triamcinolone acetonide 0.1 % 1 applic topical DAILY PRN 06/28/23 02/26/25 topical cream irritation #80 grams fluticasone propionate 50 2 spray intranasal DAILY #16 grams 07/16/23 02/26/25 mcg/actuation nasal spray,suspension methenamine hippurate 1 gram tablet 1 g PO BID #180 tab-caps 03/21/24 02/26/25 quetiapine 50 mg tablet 50 mg PO BID #180 tabs 06/13/24 02/26/25 pen needle, diabetic 31 gauge x #200 ea 06/18/24 02/26/2516 (BD Ultra-Fine Mini Pen Needle) celecoxib 100 mg capsule 100 mg PO BID #180 caps 08/28/24 02/26/25 pregabalin 25 mg capsule 25 mg PO BID #180 caps 09/08/24 02/26/25 mirabegron 50 mg tablet,extended 50 mg PO DAILY #90 tabs 09/17/24 02/26/25 release 24 hr (Myrbetriq) clonazepam 0.5 mg tablet 0.5 mg PO BID #180 tab-caps 09/22/24 02/26/25 insulin glargine 100 unit/mL (3 See Rx Instructions subcut BID #60 10/20/24 02/26/25 mL) subcutaneous pen (Lantus mL Solostar U-100 Insulin) blood sugar diagnostic (FreeStyle #300 ea 11/03/24 02/26/25 Test strips) lancets 28 gauge (FreeStyle #300 ea 11/03/24 02/26/25 Lancets) ondansetron 8 mg disintegrating 8 mg PO Q8H PRN PRN nausea and 12/04/24 02/26/25 tablet vomiting #90 tabs insulin aspart U-100 100 unit/mL 4 unit (0.04 mL) subcut AC #15 mL 12/11/24 02/26/25 (3 mL) subcutaneous pen Previous Rx's Medication Instructions Recorded pen needle, diabetic 31 gauge x #90 ea 10/31/2207/20 (BD Ultra-Fine Mini Pen Needle) blood-glucose meter (FreeStyle #1 ea 04/03/23 Lite Meter kit) polyethylene glycol 3350 17 17 g PO BID PRN laxative effect 04/23/23 gram/dose oral powder (Miralax) #238 grams Creon 24,000-76,000-120,000 unit 1 cap PO TID #270 caps 05/30/23 capsule,delayed release (dqlgkx-tebxihsh-eonpbhd (pork)) estradiol 0.01% (0.1 mg/gram) 1 g vaginal DAILY #42.5 grams 06/21/23 vaginal cream triamcinolone acetonide 0.1 % 1 applic topical DAILY PRN 06/28/23 topical cream irritation #80 grams fluticasone propionate 50 2 spray intranasal DAILY #16 grams 07/16/23 mcg/actuation nasal spray,suspension methenamine hippurate 1 gram tablet 1 g PO BID #180 tab-caps 03/21/24 quetiapine 50 mg tablet 50 mg PO BID #180 tabs 06/13/24 pen needle, diabetic 31 gauge x #200 ea 06/18/2407/20 (BD Ultra-Fine Mini Pen Needle) celecoxib 100 mg capsule 100 mg PO BID #180 caps 08/28/24 pregabalin 25 mg capsule 25 mg PO BID #180 caps 09/08/24 mirabegron 50 mg tablet,extended 50 mg PO DAILY #90 tabs 09/17/24 release 24 hr (Myrbetriq) clonazepam 0.5 mg tablet 0.5 mg PO BID #180 tab-caps 09/22/24 insulin glargine 100 unit/mL (3 See Rx Instructions subcut BID #60 10/20/24 mL) subcutaneous pen (Lantus mL Solostar U-100 Insulin) blood sugar diagnostic (FreeStyle #300 ea 11/03/24 Test strips) lancets 28 gauge (FreeStyle #300 ea 11/03/24 Lancets) ondansetron 8 mg disintegrating 8 mg PO Q8H PRN PRN nausea and 12/04/24 tablet vomiting #90 tabs insulin aspart U-100 100 unit/mL 4 unit (0.04 mL) subcut AC #15 mL 12/11/24 (3 mL) subcutaneous pen Allergies Allergy/AdvReac Type Severity Reaction Status Date / Time ibuprofen AdvReac Mild Stomach Verified 02/26/25 11:18 cramps General Stated Complaint: Fever ANDER: 3 Exam Narrative Exam Narrative: Alert and baseline oriented 80-year-old female, presenting with rigors at bedside, her pupils are equal round reactive to light and accommodation, her conjunctiva is noninjected and there is no icterus, she has mild tachypnea associated with fever, lungs are clear to auscultation cardiac sinus tachycardia without murmurs, mild diffuse abdominal tenderness without rebound or guarding alert and oriented x 2, no meningismus, no peripheral edema or rashes. Course Vital Signs Vital signs: Vital Signs Temperature 39.0 C H 02/26/25 11:13 Pulse 100 H 02/26/25 11:13 Respiratory Rate 20 02/26/25 11:13 Blood Pressure 152/84 H 02/26/25 11:13 Pulse Oximetry 94 02/26/25 11:13 Temperature 39.0 C H 02/26/25 11:16 Pulse 89 02/26/25 13:10 Pulse 89 02/26/25 13:10 Respiratory Rate 21 02/26/25 13:10 Blood Pressure 177/60 H 02/26/25 13:00 Blood Pressure Mean 100 02/26/25 13:00 Blood Pressure Position Sitting 02/26/25 11:16 Pulse Oximetry 94 02/26/25 13:10 Oxygen Delivery Method Room Air 02/26/25 11:16 Oxygen Flow Rate 0 02/26/25 11:16 Lab/Test Results Lab/Test Results: 02/26/25 12:30 Blood Blood Culture - Pending 02/26/25 12:55 Blood Blood Culture - Pending Laboratory Tests Range/Units 02/26/25 02/26/25 02/26/25 11:45 12:55 13:29 WBC (4.4-10.8) 10^3/uL 13.10 H RBC (3.93-5.22) 10^6/uL 3.79 L Hgb (11.2-15.7) g/dL 11.0 L Hct (36.0-46.0) % 33.1 L MCV (80-95) fL 87 MCH (27.0-33.0) pg 29.0 MCHC (32.0-36.0) % 33.2 RDW (11.7-14.6) % 13.8 Plt Count (130-400) 10^3/uL 361 MPV (8.0-11.0) fL 10.4 Immature Gran % % 0.6 Neutrophils % % 86.5 Lymphocytes % % 3.7 Monocytes % % 8.5 Eosinophils % % 0.2 Basophils % % 0.5 Nucleated RBC % (0.0-0.3) % 0.0 Absolute Neutrophils (1.2-6.7) 10^3/uL 11.33 H Absolute Lymphocytes (1.2-3.4) 10^3/uL 0.48 L Absolute Monocytes (0.1-0.8) 10^3/uL 1.11 H Absolute Eosinophils (0.0-0.7) 10^3/uL 0.03 Absolute Basophils (0.0-0.2) 10^3/uL 0.07 VBG pH (7.31-7.41) 7.48 H VBG pCO2 (41-51) mmHg 36 L VBG pO2 mmHg 115 VBG HCO3 (23-28) mmol/L 26 VBG Total CO2 (24-29) mmol/L 24 VBG O2 Saturation % > 99 VBG Base Excess (-2-3) mmol/L 3 VBG Lactate (<or=2.0) mmol/L 0.9 Sodium (136-145) mmol/L 139 Potassium (3.5-5.1) mmol/L 3.6 Chloride (98-107) mmol/L 104 Carbon Dioxide (21.0-32.0) mmol/L 28.3 Anion Gap (3-11) mmol/L 6.7 BUN (7-18) mg/dL 17 Creatinine (0.55-1.02) mg/dL 0.5 L Est GFR (CKD-EPI 2020) (mL/min/1.73m2) 94.17 Glucose (74-106) mg/dL 49 L* Calcium (8.5-10.1) mg/dL 8.7 Total Bilirubin (0.2-1.0) mg/dL 0.7 AST (15-37) U/L 159 H ALT (14-59) U/L 154 H Alkaline Phosphatase (46-116) U/L 1740 H Troponin I (<or=51) ng/L 9 Total Protein (6.4-8.2) g/dL 7.4 Albumin (3.4-5.0) g/dL 2.4 L Lipase (<78) U/L < 6 Urine Color (Yellow) Yellow Urine Clarity (Clear) Sl Cloudy Urine pH (5-8) 5.5 Ur Specific [place] (1.005-1.025) 1.020 Urine Protein (Neg-Trace) mg/dL 30 H Urine Ketones (Negative) mg/dL Negative Urine Blood (Negative) Small H Urine Nitrite (Negative) Negative Urine Bilirubin (Negative) Negative Urine Urobilinogen (Up to 0.2) mg/dL 0.2 Ur Leukocyte Esterase (Negative) Negative Urine RBC (0-2) HPF 10-20 H Urine WBC (0-5) HPF 5-10 Ur Epithelial Cells (Negative) HPF Moderate Urine Crystals (Negative) HPF Negative Urine Bacteria (Negative) HPF Few Urine Casts (Negative) LPF Negative Urine Mucus (Negative) Negative Ur Culture Indicated? No Urine Glucose (Negative) mg/dL Negative COVID-19 Source Nasopharynx SARS-CoV-2 (PCR) (Negative) Negative Influenza Type A (PCR) (Negative) Negative Influenza Type B (PCR) (Negative) Negative RSV (PCR) (Negative) Negative Medical Decision Making Results: Hypoglycemia of 49 leukocytosis at 13,000 hemoglobin 11 hematocrit of 33 consistent with prior no neutropenia VBG of 7.48 AST and ALT of 159 and 154 consecutively, alk phos of 1740 consistent with prior hypoalbuminemia urinalysis with red cells but no additional acute abnormality will send urine for culture. CT chest abdomen and pelvis per radiology interpretation my review does not show significant acute abnormality, CT head is nonacute per radiologist Assessment and plan: Patient remains weak and she has had several episodes of hypoglycemia despite not receiving insulin this morning. She has not had a meal so we will supplement now that her CT abdomen and pelvis is clear. She was given an amp of D50 and her blood sugar increased to 77. Will recheck at 1520. I initiated cefepime upon arrival secondary to concern for neutropenic fever. CAT scan obvious source although patient did have recent chemotherapy and so I think given her weakness leukocytosis and recurrent hypoglycemia I think she would benefit from admission for observation. She has not vomited and has been able to tolerate p.o. at this time. She is flu COVID and RSV negative. She is a DNR/DNI per palliative care note. She has received 1 L of NS and I will start D5 at 80/h with recheck her glucose to be sure she does not become hypoglycemic. She has not been in any severe respiratory distress. Case discussed with Dr. Villanueva who will admit patient to his service. Blood cultures pending lactate 0.9. Quality:SDOH Health Related Social Needs: Health related social needs material hardship education Health related social needs details has steady housing, not worried about it. PFSH All Active Problems (Updated 02/26/25 @ 15:10 by Jhonny Villanueva MD) Hypoglycemia (Acute) SIRS (systemic inflammatory response syndrome) (Acute) Splenic infarct (Acute) Abdominal pain (Acute) Elevated liver enzymes (Acute) Diabetes mellitus (Chronic) Nausea & vomiting (Acute) Impaired functional mobility, balance, gait, and endurance (Acute) Peripheral neuropathy (Acute) Diabetic amyotrophy (Acute) Peroneal neuropathy (Acute) Heart murmur (Acute) Balance problem (Acute) Foot drop, left (Acute) Low back pain potentially associated with radiculopathy (Acute) Hip pain (Acute) Diabetes mellitus with neuropathy (Acute) Nail dystrophy (Acute) Memory changes (Acute) Mass, brain (Acute) MRI 04/17/23 3mm small enhancing focus ? mets Adenocarcinoma of pancreas (Acute) bx 03/29 at [facility] [place] Hypertension (Chronic) Acute on chronic anemia (Acute) Liver failure, acute (Acute) Hyperbilirubinemia (Acute) Jaundice (Acute) Diverticulosis of colon without diverticulitis (Chronic) Lichen planus (Chronic) mouth OAB (overactive bladder) (Acute) Medical History (Updated 02/26/25 @ 15:10 by Jhonny Villanueva MD) Kidney stone Calculus of left ureter Anxiety chronic benzodiazipine use 03/27/17 FLOR-7 SCORE=7 07/02/17 FLOR-7 SCORE=13 Thrombocytopenia Nuclear age-related cataract, left eye Ingrown nail Osteoporosis Insomnia Hematuria Neg work-up 2013. UA not meeting RBC in years since for repeat Right hip pain (03/27/17) Hypercholesterolemia Generalized osteoarthrosis low back pain; xray + DJD Ingrowing toenail (04/14/14) Hematuria unspeficified; asymptomatic; neg W/U Fatigue 06/26/12 Ingrown toenail 04/14/14 Urinary tract infectious disease recurrent Surgical History Nuclear age-related cataract, right eye History of cataract surgery History of bladder repair surgery Status post laparoscopic hysterectomy H/O bladder repair surgery sling S/P laparoscopic hysterectomy 05/07/83 partial, dysmenorrhea Hysterectomy, Laproscopic (~1983) partial; dysmenorrhea Bladder Surgery (~1999) SLING Family History Mother , age 92 Dementia Father , age 78 Cancer Brother Asthma Brother ALS (amyotrophic lateral sclerosis) Brother No problems noted. Maternal Grandfather , age 50 Black lung disease Paternal Grandfather , age 65 Black lung disease Maternal Grandmother , age 80 No problems noted. Paternal Grandmother , age 84 No problems noted. Son No problems noted. Son No problems noted. Social History Smoking/Tobacco Use Status: Former Tobacco Use tobacco type: cigarettes Quit Date: 05/07/97 Tobacco: How many years used: 15 Second Hand Exposure: Yes Smoking risk assessment performed?: Yes Alcohol Intake: current Alcohol Intake frequency: holidays/special occasions only Drug use: Never Substance use type: does not use Adopted: No Household members: spouse Housing: house Number of Children: 2 number of grandchildren: 4 Communication Needs: None Education Level: college Details: A.S. 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 Pets and animals: No Sexually active: No Do you think of yourself as: straight/heterosexual Current gender identity: female What is your relationship status?: How often do you talk on the phone with friends or family?: three or more times per week How often do you get together with friends or relatives?: decline to answer How often do you attend yazdanism or rastafarian services?: 4 or more times per year Do you belong to any clubs or organized social groups?: yes Panel score (0-1 are the most socially isolated patients): 4 What type of physical activity do you participate in: walking, aerobic, bicycling and swimming Duration: 30-45 minutes/day Frequency: 3-4 times per week Lorraine/Synagogue: Religious Special lorraine needs: No Seatbelt use: always Helmet use: Yes Helmet use: always Drive intox or ride w/intox speedboat driver: No Firearms in home: Yes Do you feel safe at home: Yes Do you feel safe in your relationship?: Yes Victim of physical abuse: No Victim of emotional abuse: No Victim of sexual abuse: No Would you like helpful sources: No Additional Social history: lives with of 59 years [place] in [place]
--- NOTE | 2025-02-26 15:09 | W.PM.HP.N ---
Date of service: 02/26/25 Time of Service: 15:09 Assessment and Plan Assessment and plan (1) SIRS (systemic inflammatory response syndrome): Status: Acute Assessment and plan: - Patient meets criteria for SIRS with temperature of 102.2 °F, and tachycardia with heart rate of 100 - However, at this time no source of infection has been noted - Patient was given cefepime in the emergency department, though will not continue his procalcitonin since resulted and has been negative - Patient also had negative viral respiratory panel - Given that she experienced nausea this may be secondary to viral gastritis - Will continue to monitor patient if source of infection does present itself (2) Hypoglycemia: Status: Acute Assessment and plan: - Likely secondary to poor p.o. intake - As noted in HPI patient has not taken her insulin due to her poor p.o. intake - Will continue to every 2 hour fingerstick checks and continue D5 half-normal saline (3) Diabetes mellitus: Status: Chronic Assessment and plan: - Holding home insulin regimen due to hyperglycemia as noted above (4) Adenocarcinoma of pancreas: Status: Acute Assessment and plan: - Recommend close follow-up with oncologist at discharge (5) Elevated liver enzymes: Status: Acute Assessment and plan: - Chronic, secondary to metastatic pancreatic cancer History of Present Illness History of Present Illness Chief Complaint: nausea without vomting Narrative: 80-year-old female with a past medical history of metastatic pancreatic cancer duodenal stents NIDDM who presents emergency department complaints of nausea without vomiting and feeling weak. Patient states that beginning today she was weak having some mild confusion and was able to get out of bed on her own. She was also noted as having rigors as her walked into the room. Patient was scheduled for chemotherapy today with her last therapy other than 2 weeks ago. Patient denies any headache, lightheadedness, shortness of breath, chest pain, cough, vomiting diarrhea or constipation. In the emergency department patient was noted as being tachycardic with a heart rate of 100, temperature of 102.2 °F, otherwise normal vital signs. Physical exam was unremarkable, but CBC showed white blood cell count of 13 with an unremarkable CMP with the exception of hyperglycemia. Patient had CT of the chest abdomen pelvis that did not show any acute findings. While in the emergency department patient was given glucose without significant improvement of her blood sugar level and therefore was started on D5 half-normal saline. Patient states that while she is a diabetic she has not taken her insulin as she has had poor p.o. intake over the last few days. Patient was also given cefepime while in the emergency department. Which time emergency room provider paged hospitalist for admission for patient with SIRS without source of infection and hypoglycemia. Review of Systems All systems reviewed & are unremarkable except as noted in HPI and below PFSH All Active Problems (Updated 02/26/25 @ 15:10 by Jhonyn Villanueva MD) Hypoglycemia (Acute) SIRS (systemic inflammatory response syndrome) (Acute) Splenic infarct (Acute) Abdominal pain (Acute) Elevated liver enzymes (Acute) Diabetes mellitus (Chronic) Nausea & vomiting (Acute) Impaired functional mobility, balance, gait, and endurance (Acute) Peripheral neuropathy (Acute) Diabetic amyotrophy (Acute) Peroneal neuropathy (Acute) Heart murmur (Acute) Balance problem (Acute) Foot drop, left (Acute) Low back pain potentially associated with radiculopathy (Acute) Hip pain (Acute) Diabetes mellitus with neuropathy (Acute) Nail dystrophy (Acute) Memory changes (Acute) Mass, brain (Acute) MRI 04/17/23 3mm small enhancing focus ? mets Adenocarcinoma of pancreas (Acute) bx 03/29 at [facility] [place] Hypertension (Chronic) Acute on chronic anemia (Acute) Liver failure, acute (Acute) Hyperbilirubinemia (Acute) Jaundice (Acute) Diverticulosis of colon without diverticulitis (Chronic) Lichen planus (Chronic) mouth OAB (overactive bladder) (Acute) Medical History (Updated 02/26/25 @ 15:10 by Jhonny Villanueva MD) Kidney stone Calculus of left ureter Anxiety chronic benzodiazipine use 03/27/17 FLOR-7 SCORE=7 07/02/17 FLOR-7 SCORE=13 Thrombocytopenia Nuclear age-related cataract, left eye Ingrown nail Osteoporosis Insomnia Hematuria Neg work-up 2013. UA not meeting RBC in years since for repeat Right hip pain (03/27/17) Hypercholesterolemia Generalized osteoarthrosis low back pain; xray + DJD Ingrowing toenail (04/14/14) Hematuria unspeficified; asymptomatic; neg W/U Fatigue 06/26/12 Ingrown toenail 04/14/14 Urinary tract infectious disease recurrent Surgical History Nuclear age-related cataract, right eye History of cataract surgery History of bladder repair surgery Status post laparoscopic hysterectomy H/O bladder repair surgery sling S/P laparoscopic hysterectomy 05/07/83 partial, dysmenorrhea Hysterectomy, Laproscopic (~1983) partial; dysmenorrhea Bladder Surgery (~1999) SLING Family History Mother , age 92 Dementia Father , age 78 Cancer Brother Asthma Brother ALS (amyotrophic lateral sclerosis) Brother No problems noted. Maternal Grandfather , age 50 Black lung disease Paternal Grandfather , age 65 Black lung disease Maternal Grandmother , age 80 No problems noted. Paternal Grandmother , age 84 No problems noted. Son No problems noted. Son No problems noted. Social History Smoking/Tobacco Use Status: Former Tobacco Use tobacco type: cigarettes Quit Date: 05/07/97 Tobacco: How many years used: 15 Second Hand Exposure: Yes Smoking risk assessment performed?: Yes Alcohol Intake: current Alcohol Intake frequency: holidays/special occasions only Drug use: Never Substance use type: does not use Adopted: No Household members: spouse Housing: house Number of Children: 2 number of grandchildren: 4 Communication Needs: None Education Level: college Details: A.S. 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 Pets and animals: No Sexually active: No Do you think of yourself as: straight/heterosexual Current gender identity: female What is your relationship status?: How often do you talk on the phone with friends or family?: three or more times per week How often do you get together with friends or relatives?: decline to answer How often do you attend sikh or bahai services?: 4 or more times per year Do you belong to any clubs or organized social groups?: yes Panel score (0-1 are the most socially isolated patients): 4 What type of physical activity do you participate in: walking, aerobic, bicycling and swimming Duration: 30-45 minutes/day Frequency: 3-4 times per week Lorraine/Congregation: [employer]oroastrianism Special lorraine needs: No Seatbelt use: always Helmet use: Yes Helmet use: always Drive intox or ride w/intox 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 Firearms in home: Yes Do you feel safe at home: Yes Do you feel safe in your relationship?: Yes Victim of physical abuse: No Victim of emotional abuse: No Victim of sexual abuse: No Would you like helpful sources: No Additional Social history: lives with of 59 years Raman in [facility] Allergies and Home Medications Allergies Allergy/AdvReac Type Severity Reaction Status Date / Time ibuprofen AdvReac Mild Stomach Verified 02/26/25 11:18 cramps Home Medications Medication Instructions Recorded Confirmed Type pen needle, diabetic 31 gauge x #90 ea 10/31/22 02/26/25 Rx 3/16 (BD Ultra-Fine Mini Pen Needle) blood-glucose meter (FreeStyle #1 ea 04/03/23 02/26/25 Rx Lite Meter kit) polyethylene glycol 3350 17 17 g PO BID PRN laxative effect 04/23/23 02/26/25 Rx gram/dose oral powder (Miralax) #238 grams Creon 24,000-76,000-120,000 unit 1 cap PO TID #270 caps 05/30/23 02/26/25 Rx capsule,delayed release (hpdwxp-oqgicuwq-sohshjf (pork)) estradiol 0.01% (0.1 mg/gram) 1 g vaginal DAILY #42.5 grams 06/21/23 02/26/25 Rx vaginal cream triamcinolone acetonide 0.1 % 1 applic topical DAILY PRN 06/28/23 02/26/25 Rx topical cream irritation #80 grams fluticasone propionate 50 2 spray intranasal DAILY #16 grams 07/16/23 02/26/25 Rx mcg/actuation nasal spray,suspension methenamine hippurate 1 gram tablet 1 g PO BID #180 tab-caps 03/21/24 02/26/25 Rx quetiapine 50 mg tablet 50 mg PO BID #180 tabs 06/13/24 02/26/25 Rx pen needle, diabetic 31 gauge x #200 ea 06/18/24 02/26/25 Rx 3/16 (BD Ultra-Fine Mini Pen Needle) celecoxib 100 mg capsule 100 mg PO BID #180 caps 08/28/24 02/26/25 Rx pregabalin 25 mg capsule 25 mg PO BID #180 caps 09/08/24 02/26/25 Rx mirabegron 50 mg tablet,extended 50 mg PO DAILY #90 tabs 09/17/24 02/26/25 Rx release 24 hr (Myrbetriq) clonazepam 0.5 mg tablet 0.5 mg PO BID #180 tab-caps 09/22/24 02/26/25 Rx insulin glargine 100 unit/mL (3 See Rx Instructions subcut BID #60 10/20/24 02/26/25 Rx mL) subcutaneous pen (Lantus mL Solostar U-100 Insulin) blood sugar diagnostic (FreeStyle #300 ea 11/03/24 02/26/25 Rx Test strips) lancets 28 gauge (FreeStyle #300 ea 11/03/24 02/26/25 Rx Lancets) ondansetron 8 mg disintegrating 8 mg PO Q8H PRN PRN nausea and 12/04/24 02/26/25 Rx tablet vomiting #90 tabs insulin aspart U-100 100 unit/mL 4 unit (0.04 mL) subcut AC #15 mL 12/11/24 02/26/25 Rx (3 mL) subcutaneous pen Exam Narrative Exam Narrative: Fatigues but otehrwise ell-appearing older female lying in bed no acute distress, ANO x 4, heart regular rhythm, lungs good auscultation bilaterally, abdomen soft, nontender, nondistended Results Labs 02/26/25 12:55 02/26/25 12:55 Labs: Laboratory Results - last 24 hr 02/26/25 02/26/25 02/26/25 11:45 12:55 13:29 WBC 13.10 H RBC 3.79 L Hgb 11.0 L Hct 33.1 L MCV 87 MCH 29.0 MCHC 33.2 RDW 13.8 Plt Count 361 MPV 10.4 Immature Gran % 0.6 Neutrophils % 86.5 Lymphocytes % 3.7 Monocytes % 8.5 Eosinophils % 0.2 Basophils % 0.5 Nucleated RBC % 0.0 Absolute Neutrophils 11.33 H Absolute Lymphocytes 0.48 L Absolute Monocytes 1.11 H Absolute Eosinophils 0.03 Absolute Basophils 0.07 VBG pH 7.48 H VBG pCO2 36 L VBG pO2 115 VBG HCO3 26 VBG Total CO2 24 VBG O2 Saturation > 99 VBG Base Excess 3 VBG Lactate 0.9 Sodium 139 Potassium 3.6 Chloride 104 Carbon Dioxide 28.3 Anion Gap 6.7 BUN 17 Creatinine 0.5 L Est GFR (CKD-EPI 2020) 94.17 Glucose 49 L* Calcium 8.7 Total Bilirubin 0.7 AST 159 H ALT 154 H Alkaline Phosphatase 1740 H Troponin I 9 Total Protein 7.4 Albumin 2.4 L Lipase < 6 Urine Color Yellow Urine Clarity Sl Cloudy Urine pH 5.5 Ur Specific [place] 1.020 Urine Protein 30 H Urine Ketones Negative Urine Blood Small H Urine Nitrite Negative Urine Bilirubin Negative Urine Urobilinogen 0.2 Ur Leukocyte Esterase Negative Urine RBC 10-20 H Urine WBC 5-10 Ur Epithelial Cells Moderate Urine Crystals Negative Urine Bacteria Few Urine Casts Negative Urine Mucus Negative Ur Culture Indicated? No Urine Glucose Negative COVID-19 Source Nasopharynx SARS-CoV-2 (PCR) Negative Influenza Type A (PCR) Negative Influenza Type B (PCR) Negative RSV (PCR) Negative Last Vital Signs Temp 102.2 F H 02/26/25 11:16 Pulse 89 02/26/25 13:10 Resp 21 02/26/25 13:10 BP 177/60 H 02/26/25 13:00 Pulse Ox 94 02/26/25 13:10 Time Spent Time spent with Patient: >75 minutes Time was spent: preparing to see the patient(eg.review tests), obtaining and/or reviewing separately otained hiistory, ordering medications,tests, procedures, referring, communicating with other health rn acute care, indepentently interpreting results, counseling the patient and care coordination
[2025-02-26] MEDS: DEXTROSE 5%-0.9% SALINE 1,000 ML 80 ML IV ×2 (15:22→17:45)
--- NOTE | 2025-02-26 16:10 | W.PC.ACHO ---
Registration Status: REG ER Primary Language: Preferred Language: Kyrgyz ED Information & Data Chief Complaint Fever 02/26/25 15:08 Triage Note Chills, nausea, involuntary 02/26/25 11:13 shaking starting 10am this morning. PT reports she felt fine yesterday. Medical / Surgical History (Last Updated 02/05/25 @ 11:03 by Santiago Vergara MD) Kidney stone Calculus of left ureter Anxiety Thrombocytopenia Nuclear age-related cataract, left eye Ingrown nail Osteoporosis Insomnia Hematuria Right hip pain (03/27/17) Hypercholesterolemia Generalized osteoarthrosis Ingrowing toenail (04/14/14) Hematuria Fatigue Ingrown toenail Urinary tract infectious disease (Last Reviewed 11/29/24 @ 17:50 by Yung Hair) Nuclear age-related cataract, right eye History of cataract surgery History of bladder repair surgery Status post laparoscopic hysterectomy H/O bladder repair surgery S/P laparoscopic hysterectomy Hysterectomy, Laproscopic (~1983) Bladder Surgery (~1999) Most Recent Vital Signs Temperature 36.1 C L 02/26/25 16:01 Pulse 76 02/26/25 15:46 Pulse 75 02/26/25 15:50 Respiratory Rate 20 02/26/25 15:50 Blood Pressure 145/61 H 02/26/25 15:46 Blood Pressure Mean 87 02/26/25 15:46 Blood Pressure Position Sitting 02/26/25 11:16 Pulse Oximetry 96 02/26/25 15:22 Oxygen Delivery Method Room Air 02/26/25 11:16 Oxygen Flow Rate 0 02/26/25 11:16 Allergies ibuprofen Adverse Reaction (Mild, Verified 02/26/25 11:18) Stomach cramps Active Medications Generic Name Dose Route Start Last Admin Trade Name Freq PRN Reason Stop Dose Admin Dextrose/Sodium Chloride 1,000 mls @ 80 mls/hr 02/26/25 15:00 02/26/25 15:22 Dextrose 5%-Ns IV 80 mls/hr INFUSION SYDNI Administration Iohexol 500 ml 02/26/25 13:45 02/26/25 13:45 Omnipaque 350 Mg/Ml 500 Ml Btl-Imaging Package IJ 03/28/25 23:59 79 ml DIRECTED SYDNI Administration Sodium Chloride 50 ml 02/26/25 13:45 02/26/25 13:45 Normal Saline - Diluent 50 Ml Vial IJ 50 ml DIRECTED SYDNI Administration IV IV Catheter Type [Right] Port-a-cath (single) IV Catheter Gauge [Right] 19 Diagnostics 02/26/25 02/26/25 02/26/25 Range/Units 13:29 12:55 11:45 WBC 13.10 H (4.4-10.8) 10^3/uL RBC 3.79 L (3.93-5.22) 10^6/uL Hgb 11.0 L (11.2-15.7) g/dL Hct 33.1 L (36.0-46.0) % MCV 87 (80-95) fL MCH 29.0 (27.0-33.0) pg MCHC 33.2 (32.0-36.0) % RDW 13.8 (11.7-14.6) % Plt Count 361 (130-400) 10^3/uL MPV 10.4 (8.0-11.0) fL Immature Gran % 0.6 % Neutrophils % 86.5 % Lymphocytes % 3.7 % Monocytes % 8.5 % Eosinophils % 0.2 % Basophils % 0.5 % Nucleated RBC % 0.0 (0.0-0.3) % Absolute Neutrophils 11.33 H (1.2-6.7) 10^3/uL Absolute Lymphocytes 0.48 L (1.2-3.4) 10^3/uL Absolute Monocytes 1.11 H (0.1-0.8) 10^3/uL Absolute Eosinophils 0.03 (0.0-0.7) 10^3/uL Absolute Basophils 0.07 (0.0-0.2) 10^3/uL VBG pH 7.48 H (7.31-7.41) VBG pCO2 36 L (41-51) mmHg VBG pO2 115 mmHg VBG HCO3 26 (23-28) mmol/L VBG Total CO2 24 (24-29) mmol/L VBG O2 Saturation > 99 % VBG Base Excess 3 (-2-3) mmol/L VBG Lactate 0.9 (<or=2.0) mmol/L Sodium 139 (136-145) mmol/L Potassium 3.6 (3.5-5.1) mmol/L Chloride 104 (98-107) mmol/L Carbon Dioxide 28.3 (21.0-32.0) mmol/L Anion Gap 6.7 (3-11) mmol/L BUN 17 (7-18) mg/dL Creatinine 0.5 L (0.55-1.02) mg/dL Est GFR (CKD-EPI 2020) 94.17 (mL/min/1.73m2) Glucose 49 L* (74-106) mg/dL Calcium 8.7 (8.5-10.1) mg/dL Total Bilirubin 0.7 (0.2-1.0) mg/dL AST 159 H (15-37) U/L ALT 154 H (14-59) U/L Alkaline Phosphatase 1740 H (46-116) U/L Troponin I 9 (<or=51) ng/L Total Protein 7.4 (6.4-8.2) g/dL Albumin 2.4 L (3.4-5.0) g/dL Lipase < 6 (<78) U/L Urine Color Yellow (Yellow) Urine Clarity Sl Cloudy (Clear) Urine pH 5.5 (5-8) Ur Specific [place] 1.020 (1.005-1.025) Urine Protein 30 H (Neg-Trace) mg/dL Urine Ketones Negative (Negative) mg/dL Urine Blood Small H (Negative) Urine Nitrite Negative (Negative) Urine Bilirubin Negative (Negative) Urine Urobilinogen 0.2 (Up to 0.2) mg/dL Ur Leukocyte Esterase Negative (Negative) Urine RBC 10-20 H (0-2) HPF Urine WBC 5-10 (0-5) HPF Ur Epithelial Cells Moderate (Negative) HPF Urine Crystals Negative (Negative) HPF Urine Bacteria Few (Negative) HPF Urine Casts Negative (Negative) LPF Urine Mucus Negative (Negative) Ur Culture Indicated? No Urine Glucose Negative (Negative) mg/dL COVID-19 Source Nasopharynx SARS-CoV-2 (PCR) Negative (Negative) Influenza Type A (PCR) Negative (Negative) Influenza Type B (PCR) Negative (Negative) RSV (PCR) Negative (Negative) 02/26/25 15:34 Urine Culture - Pending Urine - Cath Straight 02/26/25 12:30 Blood Culture - Pending Blood 02/26/25 12:55 Blood Culture - Pending Blood [id number] Documentation Fingerstick Glucose Start: 02/26/25 14:46 Freq: Status: Active Protocol: Activity Type Activity Date Activity User E-sign Co-sign Detail Recorded Client Recorded Date Recorded By Document 02/26/25 15:58 BKG DAEMON(3) [id number] 02/26/25 16:00 BKG DAEMON(4) Intake and Output - 24 Hour Total 02/26/25 11:03 thru 02/26/25 15:27 Intake Total 1150 Output Total 75 Balance 1075 Weight 63.503 kg Intake: IV 1150 Output: Urine 75 Other: Urine Color Yellow Falls Risk Assessment History of Falls No History 02/26/25 11:16 Contributing Factors No Factors 02/26/25 11:16 Ambulatory Aids Uses ambulatory device 02/26/25 11:16 Tubes/Lines None 02/26/25 11:16 Gait Evaluation No gait disturbance 02/26/25 11:16 Cognition No cognitive impairment 02/26/25 11:16 Fall Total Score 15 02/26/25 11:16 Level of Risk Standard/Low Risk 02/26/25 11:16 Problems (Last Updated 02/05/25 @ 11:03 by Santiago Vergara MD) Hypoglycemia (Acute) SIRS (systemic inflammatory response syndrome) (Acute) Elevated liver enzymes (Acute) Diabetes mellitus (Chronic) Adenocarcinoma of pancreas (Acute) v v v v v v v v v Sending and/or Receiving Nurses: Please use comment section below to note any information pertinent to the patient hand-off not included above. Information / Comments: Report received from: Bobbi RN, ED at 1610
[2025-02-26] MEDS: Creon, Lipase 24,000 CAPCR 1 CAP PO (17:43)
[2025-02-26] MEDS: QUEtiapine 50 MG TAB PO (19:36)
[2025-02-26] MEDS: clonazePAM 0.5 MG TAB PO (19:36)
[2025-02-26] MEDS: Pregabalin 25 MG CAP PO (19:36)
[2025-02-26 22:13] LABS: Procalcitonin 0.40 ng/mL
[2025-02-27 03:29] VITALS: BP 127/80; PULSE 59; RESP 16; TEMP 36.1; O2SAT 97
[2025-02-27 06:53] LABS: HCT 29.7 % (36.0-46.0); HGB 9.8 g/dL (11.2-15.7); MCH 28.7 pg (27.0-33.0); MCHC 33.0 % (32.0-36.0); MCV 87 fL (80-95); MPV 10.6 fL (8.0-11.0); Platelet Count 348 10^3/uL (130-400); RBC 3.41 10^6/uL (3.93-5.22); RDW 13.8 % (11.7-14.6); RDW-SD 43.2 fL; WBC 6.72 10^3/uL (4.4-10.8)
[2025-02-27 07:03] LABS: Anion Gap 6.6 mmol/L (3-11); BUN 12 mg/dL (7-18); CO2 27.4 mmol/L (21.0-32.0); Calcium 8.3 mg/dL (8.5-10.1); Chloride 106 mmol/L (98-107); Glucose 117 mg/dL (74-106); Magnesium 1.7 mg/dL (1.8-2.4); Potassium 3.4 mmol/L (3.5-5.1); Sodium 140 mmol/L (136-145)
[2025-02-27] MEDS: QUEtiapine 50 MG TAB PO ×2 (09:27→20:13)
[2025-02-27] MEDS: Enoxaparin 40 MG/0.4 ML SYR SC (09:27)
[2025-02-27] MEDS: Mirabegron 50 MG TABCR PO (09:28)
[2025-02-27] MEDS: Creon, Lipase 24,000 CAPCR 1 CAP PO ×3 (09:28→16:44)
[2025-02-27] MEDS: Pregabalin 25 MG CAP PO ×2 (09:28→20:13)
[2025-02-27] MEDS: clonazePAM 0.5 MG TAB PO ×2 (09:28→20:13)
[2025-02-27] MEDS: Fluticasone NASAL SPRAY 16 GM BTL NS (09:34)
--- NOTE | 2025-02-27 09:53 | PDOC.CMIN ---
Date of service: 02/27/25 Time of Service: 16:54 Care Management Initial Assmt Initial Assessment Reason for Hospitalization: hypoglycemia Functional Status/Living Situation Patient Presentation: CM met with Tina, who was lying in bed and awake at the time of the visit. She presented to the ED with nausea without vomiting today and weak with some mild confusion at home; See documentation. Today, Tina reports that she is feeling better and anticipates discharge tomorrow. Tina shared that she resides in [place] with her , . She has two adult sons who serve as strong supports; one plans to visit this weekend to assist with yard work. Tina reported that she has long-term care insurance, which she obtained in her thirties. The policy currently covers three caregivers, who provide assistance on Sunday, Sunday, and Sunday from 10:30 a.m. to 2:30 p.m. The caregivers help with household tasks and support Tina in taking walks outside. 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 She stated that they are financially comfortable and have [employer] insurance through her ’s service. At home, Tina uses handrails and furniture for stability. CM will continue to follow. Town of Residence: [place] Resides with: Spouse Significant Other/Family: Local Caregiver/Guardian: Paid caregiver Sunday, Sunday, and Sunday from 10:30-2:30 Natural Supports: and two sons are very supportive; one son lives near [place] and the other in [place]. Employment Status: Retired Instrumental Activities of Daily Living (ADLs): Requires support Activities/Hobbies/SocialSupport: Tina is very active, both physically and socially. Medications Medication Management: No Issues/Barriers identified Physical Functioning/Mobility Assistive Device: Brace for foot drop, has cane and walker but primarily uses the hand rails inside her home Advance Directives Advance Directives: Do you have an Advance Directive: Y 05/28/24, 12:35 AD On File at [facility]: Y 05/28/24, 12:35 Date Asked 12/09/24 01/13/25, 11:27 AD Date Reviewed 02/26/25 02/26/25, 11:13 COLST On File at [facility] COLST Date Scanned Code Status Resuscitation Status DNR/DNI Portal Pt does not currently have a portal and education provided: Yes Insurance Coverage/Financial Issues Insurance: [facility] - [id number] Care Team Visit Care Team Role Provider Type Ramos Veliz MD MD [facility] STAFF PHYSICIAN Sarah Weldon MD, [place] Primary Care Provider , [facility] [place] [facility] Emergency Provider [facility] [employer] Jhonny Villanueva MD Admit Provider [facility] STAFF PHYSICIAN Attending Provider Discharge Potential Discharge Needs: PCP F/U Appt Anticipated Barriers to Discharge: None Identified Patient/Family Education Needs: Review discharge instructions, discuss Ask Me Three Transportation: Private vehicle Plan: Anticipate Tina will return home once medically cleared. Her will drive her home via private vehicle. She will follow up with her PCP and discharge plan of care. CM will continue to follow. Social Determinants of Health Screening Social Determinants of health last assessed in clinic: 02/27/25 Will the Patient Participate in the Screening?: Yes Do you worry about having a steady place to live?: no Problems where you live: no known problems In the past 12 months, have you had to go without electric, gas, oil or water in your home?: no 1. Within the past 12 months, we worried whether our food would run out before we got money to buy more.: Never true 2. Within the past 12 months, the food we bought just didn't last and we didn't have money to get more.: Never true Has lack of transportation kept you from medical appointments or from doing things needed for daily living?: no Has anyone in your life made you feel unsafe or unsupported?: no How hard is it for you to pay for the very basics like food, housing, medical care, and heating? Would you say it is:: Not hard at all Do you want help finding or keeping work or a job?: I do not need or want help If for any reason you need help with day-to-day activities such as bathing, preparing meals, shopping, managing finances, etc., do you get the help you need?: I don’t need any help How often do you feel lonely or isolated from those around you?: Never Do you speak a language other than [place] Islander at home?: No Does the patient want assistance with any of the above?: No Health Related Social Needs Health related social needs details: pt has caregiver come in 3 x /week PFSH All Active Problems (Updated 02/26/25 @ 15:10 by Jhonny Villanueva MD) Hypoglycemia (Acute) SIRS (systemic inflammatory response syndrome) (Acute) Splenic infarct (Acute) Abdominal pain (Acute) Elevated liver enzymes (Acute) Diabetes mellitus (Chronic) Nausea & vomiting (Acute) Impaired functional mobility, balance, gait, and endurance (Acute) Peripheral neuropathy (Acute) Diabetic amyotrophy (Acute) Peroneal neuropathy (Acute) Heart murmur (Acute) Balance problem (Acute) Foot drop, left (Acute) Low back pain potentially associated with radiculopathy (Acute) Hip pain (Acute) Diabetes mellitus with neuropathy (Acute) Nail dystrophy (Acute) Memory changes (Acute) Mass, brain (Acute) MRI 04/17/23 3mm small enhancing focus ? mets Adenocarcinoma of [place] (Acute) [place] [facility] [place]ension (Chronic) Acute on chronic anemia (Acute) Liver failure, acute (Acute) Hyperbilirubinemia (Acute) Jaundice (Acute) Diverticulosis of colon without diverticulitis (Chronic) Lichen planus (Chronic) mouth OAB (overactive bladder) (Acute) Medical History (Updated 02/26/25 @ 15:10 by Jhonny Villanueva MD) Kidney stone Calculus of left ureter Anxiety chronic benzodiazipine use 03/27/17 FLOR-7 SCORE=7 07/02/17 FLOR-7 SCORE=13 Thrombocytopenia Nuclear age-related cataract, left eye Ingrown nail Osteoporosis Insomnia Hematuria Neg work-up 2013. UA not meeting RBC in years since for repeat Right hip pain (03/27/17) Hypercholesterolemia Generalized osteoarthrosis low back pain; xray + DJD Ingrowing toenail (04/14/14) Hematuria unspeficified; asymptomatic; neg W/U Fatigue 06/26/12 Ingrown toenail 04/14/14 Urinary tract infectious disease recurrent Surgical History Nuclear age-related cataract, right eye History of cataract surgery History of bladder repair surgery Status post laparoscopic hysterectomy H/O bladder repair surgery sling S/P laparoscopic hysterectomy 05/07/83 partial, dysmenorrhea Hysterectomy, Laproscopic (~1983) partial; dysmenorrhea Bladder Surgery (~1999) SLING Family History Mother , age 92 Dementia Father , age 78 Cancer Brother Asthma Brother ALS (amyotrophic lateral sclerosis) Brother No problems noted. Maternal Grandfather , age 50 Black lung disease Paternal Grandfather , age 65 Black lung disease Maternal Grandmother , age 80 No problems noted. Paternal Grandmother , age 84 No problems noted. Son No problems noted. Son No problems noted. Social History Smoking/Tobacco Use Status: Former Tobacco Use tobacco type: cigarettes Quit Date: 05/07/97 Tobacco: How many years used: 15 Second Hand Exposure: Yes Smoking risk assessment performed?: Yes Alcohol Intake: current Alcohol Intake frequency: holidays/special occasions only Drug use: Never Substance use type: does not use Adopted: No Household members: spouse Housing: house Number of Children: 2 number of grandchildren: 4 Communication Needs: None Education Level: college Details: [employer] 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 Pets and animals: No Sexually active: No Do you think of yourself as: straight/heterosexual Current gender identity: female What is your relationship status?: How often do you talk on the phone with friends or family?: three or more times per week How often do you get together with friends or relatives?: decline to answer How often do you attend temple or restoration services?: 4 or more times per year Do you belong to any clubs or organized social groups?: yes Panel score (0-1 are the most socially isolated patients): 4 What type of physical activity do you participate in: walking, aerobic, bicycling and swimming Duration: 30-45 minutes/day Frequency: 3-4 times per week Lorraine/Shinto: Buddhist Special lorraine needs: No Seatbelt use: always Helmet use: Yes Helmet use: always Drive intox or ride w/intox straight truck driver: No Firearms in home: Yes Do you feel safe at home: Yes Do you feel safe in your relationship?: Yes Victim of physical abuse: No Victim of emotional abuse: No Victim of sexual abuse: No Would you like helpful sources: No Additional Social history: lives with of 59 years [place] in [place] Readmission Within the Past 30 Days Yes or No: No
[2025-02-27 09:54] VITALS: BP 128/89; PULSE 78; RESP 16; TEMP 36.5; O2SAT 98
[2025-02-27 11:23] VITALS: BP 142/67; PULSE 68; RESP 16; O2SAT 96
[2025-02-27] MEDS: MAGNESIUM SULFATE 1 GM/100 ML BAG IV_INF (11:47)
--- NOTE | 2025-02-27 13:05 | CHAPLAIN ---
Tina was resting in bed when I visited. She talked about her and two sons (and their wives) as being strong supports for her. One son lives in [place] and the other in [place], but visit frequently and were just home to help with some chores around the house. Tina said she is working to gain back some wait and has been encouraged to even pick at her meals. She tool me up on my offer of some custard. I explained my role and offered support.
[2025-02-27] MEDS: Normal Saline Flush 10 ML SYR (13:10)
[2025-02-27 15:07] VITALS: BP 150/63; PULSE 68; RESP 16; TEMP 36.6; O2SAT 94
--- NOTE | 2025-02-27 16:37 | W.PM.PROGNOT ---
Date of Service Date of service: 02/27/25 Time of Service: 09:00 Assessment and Plan Assessment and plan (1) SIRS (systemic inflammatory response syndrome): Status: Acute Assessment and plan: - Patient meets criteria for SIRS with temperature of 102.2 °F, and tachycardia with heart rate of 100 - However, at this time no source of infection has been noted - Patient was given cefepime in the emergency department, though will not continue his procalcitonin since resulted and has been negative - Patient also had negative viral respiratory panel - Given that she experienced nausea this may be secondary to viral gastritis - Will continue to monitor patient if source of infection does present itself (2) Hypoglycemia: Status: Acute Assessment and plan: - Likely secondary to poor p.o. intake - As noted in HPI patient has not taken her insulin due to her poor p.o. intake - Will continue to every 2 hour fingerstick checks and continue D5 half-normal saline (3) Diabetes mellitus: Status: Chronic Assessment and plan: - Holding home insulin regimen due to hyperglycemia as noted above (4) Adenocarcinoma of pancreas: Status: Acute Assessment and plan: - Recommend close follow-up with oncologist at discharge (5) Elevated liver enzymes: Status: Acute Assessment and plan: - Chronic, secondary to metastatic pancreatic cancer Subjective Subjective Interval history since last seen: Ms. Juarez is comfortable in bed. She reports feeling a bit better today. Exam Narrative Exam Narrative: General: This is a pleasant, chronically ill-appearing woman in no distress HEENT: Normocephalic, atraumatic CV: RRR Resp: CTAB Abd: soft, NTND MSK: voluntary motion x4 Neuro: awake, alert, no focal deficits Objective Last Vital Signs Temp 36.6 C 02/27/25 15:07 Pulse 68 02/27/25 15:07 Resp 16 02/27/25 15:07 BP 150/63 H 02/27/25 15:07 Pulse Ox 94 02/27/25 15:07 Laboratory Results - last 24 hr 02/26/25 02/27/25 21:12 06:20 WBC 6.72 RBC 3.41 L Hgb 9.8 L Hct 29.7 L MCV 87 MCH 28.7 MCHC 33.0 RDW 13.8 Plt Count 348 MPV 10.6 Sodium 140 Potassium 3.4 L Chloride 106 Carbon Dioxide 27.4 Anion Gap 6.6 BUN 12 Creatinine 0.5 L Est GFR (CKD-EPI 2020) 94.17 Glucose 117 H Calcium 8.3 L Magnesium 1.7 L Procalcitonin 0.40 Time Spent with Patient Time Spent with Patient: 25-34 minutes Time was spent: preparing to see the patient(eg.review tests), obtaining and/or reviewing separately otained hiistory, ordering medications,tests, procedures, referring, communicating with other health wound care center consultant, indepentently interpreting results, counseling the patient and care coordination
[2025-02-27] MEDS: Normal Saline Flush 10 ML SYR IVP (20:13)
[2025-02-28 05:10] VITALS: BP 142/54; PULSE 72; RESP 18; TEMP 36.4; O2SAT 94
[2025-02-28 07:28] VITALS: BP 148/90; PULSE 66; RESP 16; TEMP 36; O2SAT 96
--- NOTE | 2025-02-28 09:47 | PT.INIE ---
Time of Service: 09:35 PT Notes Visit Reasons: Hypoglycemia Physical Therapy Inpatient Initial Evaluation Date: 02/28/2025 Referring Doctor: Dr Veliz PT Orders: PT CONSULT: PT evaluation and treatment due to limited ability Precautions: Standard Patient Profile/Admitting Diagnosis: Patient is a 80-year-old female who presented to the ED on 02/27/2025 with nausea, weakness, confusion and temperature. In ED patient noted to have tachycardia, WBC of [address] of chest/abdomen/pelvis revealed no acute findings. Patient diagnosed with SIRS and hypoglycemia she is admitted to the MedSurg unit for medical monitoring. PT consult placed in anticipation of discharge to home PMHX: Hypoglycemia (Acute) SIRS (systemic inflammatory response syndrome) (Acute) Splenic infarct (Acute) Abdominal pain (Acute) Elevated liver enzymes (Acute) Diabetes mellitus (Chronic) Nausea & vomiting (Acute) Impaired functional mobility, balance, gait, and endurance (Acute) Peripheral neuropathy (Acute) Diabetic amyotrophy (Acute) Peroneal neuropathy (Acute) Heart murmur (Acute) Balance problem (Acute) Foot drop, left (Acute) Low back pain potentially associated with radiculopathy (Acute) Hip pain (Acute) Diabetes mellitus with neuropathy (Acute) Nail dystrophy (Acute) Memory changes (Acute) Mass, brain (Acute) MRI 04/17/23 3mm small enhancing focus ? metsAdenocarcinoma [place] [facility] [place]) Acute on chronic anemia (Acute) Liver failure, acute (Acute) Hyperbilirubinemia (Acute) Jaundice (Acute) Diverticulosis of colon without diverticulitis (Chronic) Lichen planus (Chronic) mouth OAB (overactive bladder) (Acute) Medical History (Updated 02/26/25 @ 15:10 by Jhonny Villanueva MD) Kidney stone Calculus of left ureter Anxiety chronic benzodiazipine use 03/27/17 FLOR-7 SCORE=7 07/02/17 FLOR-7 SCORE=13 Thrombocytopenia Nuclear age-related cataract, left eye Ingrown nail Osteoporosis Insomnia Hematuria Neg work-up 2013. UA not meeting RBC in years since for repeatRight hip pain (03/27/17) Hypercholesterolemia Generalized osteoarthrosis low back pain; xray + DJD Ingrowing toenail (04/14/14) Hematuria unspeficified; asymptomatic; neg W/UFatigue 06/26/12Ingrown toenail 04/14/14Urinary tract infectious disease recurrent Surgical History Nuclear age-related cataract, right eye History of cataract surgery History of bladder repair surgery Status post laparoscopic hysterectomy H/O bladder repair surgery slingS/P laparoscopic hysterectomy 05/07/83 partial, dysmenorrheaHysterectomy, Laproscopic (~1983) partial; dysmenorrheaBladder Surgery (~1999) SLING Social History/Home Situation: Resides with in multilevel home with 10 steps to enter with bilateral rails. Patient reports multiple areas with 2-3 steps with a railing as well as some areas of home with 1 step without a rail. Patient independent ambulation within home without device utilizing furniture for support. Intermittently uses FWW at times of weakness related to chemotherapy. She is assistance from home health aides 3 times a week Sunday and Sunday from 10 30- 30. The staff performs homemaking and assisting her with walking outdoors. Equipment Owned/DME: [employer] Subjective: Patient reports she is feeling much better although continues to report some abdominal discomfort which she states is related to her lack of appetite and sense of taste due to chemotherapy. Objective: [] General Observation: Alert active female supine in bed able to follow commands agreeable to participate Mental Status: Alert and oriented x 4, talkative Pain: Abdominal discomfort ROM: [] BUE: WNL BLE: WNL Strength: [] Right Upper Extremity: 5/5 Left Upper Extremity: 5/5 Right Lower Extremity: Grossly/functionally 4/5 Left Lower Extremity: grossly/functionally 4/5 Sensation: Intact Bed Mobility/Transfers: [] Supine to sit independent Sit to stand SBA Stand to sit SBA Bed to chair SBA with FWW; contact-guard assist without device Gait: Ambulated with FWW 200 feet SBA Stairs: 3 4 steps and 2 6 steps with B rails SBA with reciprocal pattern Balance: Static Sitting: Normal Dynamic Sitting: Good Static Standing: Normal Dynamic Standing: Good-with 1 upper extremity support/fair plus without support due to impaired ankle and hip strategies to correct balance Special Tests: [] Mobility Limitations Standardized Measure [] [facility] 6 clicks Basic Mobility Inpatient Short Form: [] Raw Score: 24 CMS Score: 0% deficit Informed Consent/Education: Patient instructed in purpose of PT consult. Treatment: 51544 Functional transfers from chair, toilet with and without assistive device with increased repetitions patient required less assistance from contact-guard assist to standby assist. Patient performed task better with sneakers on versus nonskid socks demonstrating improved stability with use of sneakers. Functional mobility with out assistive device simulating ambulation within areas of her home utilizing touch on wall for balance. As patient reports due to multilevel home she cannot manage a walker on all the levels. Assessment: Patient is an 80-year-old female presenting with known adenocarcinoma of the pancreas with elevated liver enzymes. Patient is receiving chemotherapy at this time. Patient presents with clinical signs and symptoms consistent with current/admitting diagnoses that have resulted to mobility limitations, gait instability, generalized weakness, and impairment of motor control as demonstrated by the following impairment level findings: 1. Decreased strength/motor control to BLE major muscle groups 2. Impaired dynamic standing balance 3. Impaired functional activity tolerance 4. Abdominal discomfort Impairments are contributing to the following functional limitations: 1. Inability to safely ambulate without assistive device 2. Increase completion time for mobility ADL performance 3. Increased fall risk 4. Difficulty performing stairs without support of rails Patient is assessed as a low complexity based on the following: History: 80-year-old female with impairment level findings, functional limitations, and past medical history as indicated above Examination: Demonstrable impairment in strength, balance, and mobility level with underlying impairments and functional limitations as documented above Presentation: Stable Decision Making: Low Goals: N/A. PT evaluation and 1 treatment sessions only for functional mobility training using recommended AD . Plan of Care/Treatment Plan: N/A. PT evaluation and 1 treatment session only for functional mobility training using recommended AD . DISCHARGE RECOMMENDATIONS: Home with home health PT TREATMENT CODE/TIME: 39182, [id number] Thank you for the opportunity to participate in the care of this patient. Idalia Calzada, PT [facility]
[2025-02-28] MEDS: Enoxaparin 40 MG/0.4 ML SYR SC (09:56)
[2025-02-28] MEDS: Mirabegron 50 MG TABCR PO (09:56)
[2025-02-28] MEDS: Creon, Lipase 24,000 CAPCR 1 CAP PO ×2 (09:56→13:13)
[2025-02-28] MEDS: QUEtiapine 50 MG TAB PO (09:57)
[2025-02-28] MEDS: clonazePAM 0.5 MG TAB PO (09:57)
[2025-02-28] MEDS: Pregabalin 25 MG CAP PO (09:57)
[2025-02-28] MEDS: Fluticasone NASAL SPRAY 16 GM BTL NS (10:01)
[2025-02-28 11:17] VITALS: BP 121/78; PULSE 67; RESP 16; TEMP 36.5; O2SAT 95
[2025-02-28 12:34] LABS: Anion Gap 7.6 mmol/L (3-11); BUN 12 mg/dL (7-18); CO2 27.4 mmol/L (21.0-32.0); Calcium 8.1 mg/dL (8.5-10.1); Chloride 101 mmol/L (98-107); Glucose 287 mg/dL (74-106); Magnesium 1.8 mg/dL (1.8-2.4); Potassium 3.5 mmol/L (3.5-5.1); Sodium 136 mmol/L (136-145)
--- NOTE | 2025-02-28 13:57 | DSE_ITS ---
Date of service: 02/28/25 Time of Service: 13:00 DS: Diagnosis Discharge Diagnosis (1) SIRS (systemic inflammatory response syndrome): Status: Resolved Asessment and Plan: - Patient met criteria for SIRS with temperature of 102.2 °F, and tachycardia with heart rate of 100 - No source of infection identified - Patient was given cefepime in the emergency department, not continued. - Patient also had negative viral respiratory panel - Given that she experienced nausea this may be secondary to viral gastritis - Much improvement with antiemetics (2) Hypoglycemia: Status: Resolved Asessment and Plan: - Likely secondary to poor p.o. intake - Patient had not taken her insulin due to her poor p.o. intake - Initially on D5 half normal IV fluids - No further episodes of hypoglycemia after admission, PO intake improved with antiemetics. (3) Diabetes mellitus: Status: Chronic Asessment and Plan: Last A1C 10.1 in November Home regimen: basal insulin 40u daily with mealtime correctional, continue (4) Adenocarcinoma of pancreas: Status: Acute Asessment and Plan: - Recommend close follow-up with oncologist at discharge (5) Elevated liver enzymes: Status: Resolved Asessment and Plan: - Chronic, secondary to metastatic pancreatic cancer Discharge Plan Disposition Patient Disposition: Home Condition: Fair Discharge Details Reason For Visit: Hypoglycemia Admit Date/Time: 02/26/25 15:08 Admit Provider: Jhonny Villanueva Attending Provider: Jhonny Villanueva [facility] Course: Tina Juarez is an 80 year old woman presenting February 26 with nausea and weakness, found to be hypoglycemic and febrile. Patient has metastatic pancreatic cancer with duodenal stents. She is an insulin-dependent diabetic. Her nausea has resolved with medication and she feels rested. After a pause in her insulin, and improved PO intake, her blood sugar normalized. She wants to go home with her family and is safe to do so at this time. Home Meds and New Rx's Prescriptions: New metoclopramide HCl [Reglan] 5 mg tablet 5 mg PO Q6H Qty: 60 0RF Continued fluticasone propionate 50 mcg/actuation spray,suspension 2 spray intranasal DAILY Qty: 16 2RF Rx Instructions: administer into each nostril estradiol 0.01 % (0.1 mg/gram) cream 1 g vaginal DAILY Qty: 42.5 5RF Rx Instructions: do daily until seen by Dr Smith again methenamine hippurate 1 gram tablet 1 g PO BID Qty: 180 3RF ondansetron 8 mg tablet,disintegrating 8 mg PO Q8H PRN PRN (Reason: nausea and vomiting) Qty: 90 5RF Rx Instructions: may take every am to PREVENT nausea and 2 additional times daily if needed polyethylene glycol 3350 [Miralax] 17 gram/dose powder 17 g PO BID PRN (Reason: laxative effect) Qty: 238 4RF mirabegron [Myrbetriq] 50 mg tablet extended release 24 hr 50 mg PO DAILY Qty: 90 4RF insulin glargine [Lantus Solostar U-100 Insulin] 100 unit/mL (3 mL) insulin pen See Rx Instructions subcut BID Qty: 60 7RF Rx Instructions: 40 Unit subcutaneously a day; (DME) pen needle, diabetic [BD Ultra-Fine Mini Pen Needle] 31 gauge x 3/16 needle See Rx Instructions .ROUTE .MEDSUPPLY Qty: 90 4RF Rx Instructions: Daily E11.9 (DME) blood-glucose meter [FreeStyle Lite Meter] Kit See Rx Instructions .Route Qty: 1 0RF Rx Instructions: 3 times daily testing E11.9 Creon 24,000-76,000 -120,000 unit capsule,delayed release(DR/EC) 1 cap PO TID Qty: 270 4RF Rx Instructions: administer with meals and/or snacks Or[place] by Opal Ontiveros mash preparatory operator [place] [facility] [place]. 05/29/23. -hb triamcinolone acetonide 0.1 % cream 1 applic TP DAILY PRN (Reason: irritation) Qty: 80 0RF quetiapine 50 mg tablet 50 mg PO BID Qty: 180 5RF (DME) pen needle, diabetic [BD Ultra-Fine Mini Pen Needle] 31 gauge x 3/16 needle See Rx Instructions .ROUTE .MEDSUPPLY Qty: 200 4RF Rx Instructions: use one BID E11.9 celecoxib 100 mg capsule 100 mg PO BID Qty: 180 2RF pregabalin 25 mg capsule 25 mg PO BID Qty: 180 3RF clonazepam 0.5 mg tablet 0.5 mg PO BID Qty: 180 3RF (DME) lancets [FreeStyle Lancets] 28 gauge misc See Rx Instructions .ROUTE .MEDSUPPLY Qty: 300 5RF Rx Instructions: 3 times daily testing E11.9 (DME) FreeStyle Test Strip See Rx Instructions .Route Qty: 300 4RF Rx Instructions: 3 times daily E11.9 insulin aspart U-100 100 unit/mL (3 mL) insulin pen 4 unit subcut AC MDD 12 Qty: 15 5RF Rx Instructions: give 4 units IF blood sugar is over 200 Discharge Instructions Referrals: Sarah Weldon MD, [place] [Primary Care Provider, Medicine] Referral Note: Office will call you in a few days to follow-up. Activity:: Activity as Tolerated Equipment/Supplies:: No Equipment Needed Diet:: As Tolerated Discharge Orders Discharge Orders: Discharge Order (Routine); Ordered 02/28/25 Ordered By: Ramos Veliz Discharge Data Discharge Date/Time-TO BE ENTERED AT DEPARTURE: 02/28/25 15:48 DS: Summary Time Spent with Patient providing and/or coordinating discharge services: Greater than 30 minutes Status at Discharge Functional status at discharge: independent ambulation Overall status at discharge: patient is back to baseline Mental Status: mental status grossly normal Speech and Movement: speech and movement normal Mood: congruent mood Affect: normal affect Quality:SDOH Health Related Social Needs: Health related social needs material hardship educatio n Health related social needs details pt has caregiver c ome in 3 x /week Health related social needs details: pt has caregiver come in 3 x /week Exam Narrative Exam Narrative: General: This is a pleasant, chronically ill-appearing woman in no distress HEENT: Normocephalic, atraumatic CV: RRR Resp: CTAB Abd: soft, NTND MSK: voluntary motion x4 Neuro: awake, alert, no focal deficits Psych Mental Status: mental status grossly normal Speech and Movement: speech and movement normal Mood: congruent mood Affect: normal affect DS: Data Vitals/I&O Vitals and I&O: Vital Signs Temperature 36.5 C 02/28/25 11:17 Temperature Source Temporal Artery Scan 02/28/25 11:17 Pulse 67 02/28/25 11:17 Pulse 75 02/26/25 15:50 Respiratory Rate 16 02/28/25 11:17 Respiratory Effort Normal 02/26/25 17:02 Respiratory Depth Normal 02/26/25 17:02 Respiratory Pattern Normal 02/26/25 17:02 Blood Pressure 121/78 02/28/25 11:17 Blood Pressure Mean 92 02/28/25 11:17 Blood Pressure Position Sitting 02/26/25 11:16 Pulse Oximetry 95 02/28/25 11:17 Oxygen Delivery Method Room Air 02/28/25 11:17 Oxygen Flow Rate 0 02/28/25 11:17 Pain Level 0 02/28/25 05:10 Intake & Output 02/27/25 02/28/25 02/28/25 23:59 11:59 23:59 Intake Total 280 / 520 240 / 480 240 / 480 Balance 280 / 520 240 / 480 240 / 480 Intake: IV 40 / 40 Oral 240 / 480 240 / 480 240 / 480 Other: Urine Color Yellow Urine Appearance Clear Urine Odor Normal Comment pt voids independently in toilet Pt voided an immeasurable amount in the toilet. Pt rang appropriately to transfer back to bed. Stool Size Moderate Stool Characteristics Formed Brown Data Completed and Pending Pending Labs at Discharge: 02/26/25 02/26/25 02/26/25 11:45 12:55 13:29 WBC 13.10 H RBC 3.79 L Hgb 11.0 L Hct 33.1 L MCV 87 MCH 29.0 MCHC 33.2 RDW 13.8 Plt Count 361 MPV 10.4 Immature Gran % 0.6 Neutrophils % 86.5 Lymphocytes % 3.7 Monocytes % 8.5 Eosinophils % 0.2 Basophils % 0.5 Nucleated RBC % 0.0 Absolute Neutrophils 11.33 H Absolute Lymphocytes 0.48 L Absolute Monocytes 1.11 H Absolute Eosinophils 0.03 Absolute Basophils 0.07 VBG pH 7.48 H VBG pCO2 36 L VBG pO2 115 VBG HCO3 26 VBG Total CO2 24 VBG O2 Saturation > 99 VBG Base Excess 3 VBG Lactate 0.9 Sodium 139 Potassium 3.6 Chloride 104 Carbon Dioxide 28.3 Anion Gap 6.7 BUN 17 Creatinine 0.5 L Est GFR (CKD-EPI 2020) 94.17 Glucose 49 L* Calcium 8.7 Magnesium Total Bilirubin 0.7 AST 159 H ALT 154 H Alkaline Phosphatase 1740 H Troponin I 9 Total Protein 7.4 Albumin 2.4 L Lipase < 6 Procalcitonin Urine Color Yellow Urine Clarity Sl Cloudy Urine pH 5.5 Ur Specific [place] 1.020 Urine Protein 30 H Urine Ketones Negative Urine Blood Small H Urine Nitrite Negative Urine Bilirubin Negative Urine Urobilinogen 0.2 Ur Leukocyte Esterase Negative Urine RBC 10-20 H Urine WBC 5-10 Ur Epithelial Cells Moderate Urine Crystals Negative Urine Bacteria Few Urine Casts Negative Urine Mucus Negative Ur Culture Indicated? No Urine Glucose Negative COVID-19 Source Nasopharynx SARS-CoV-2 (PCR) Negative Influenza Type A (PCR) Negative Influenza Type B (PCR) Negative RSV (PCR) Negative 02/26/25 02/27/25 02/28/25 21:12 06:20 11:55 WBC 6.72 RBC 3.41 L Hgb 9.8 L Hct 29.7 L MCV 87 MCH 28.7 MCHC 33.0 RDW 13.8 Plt Count 348 MPV 10.6 Immature Gran % Neutrophils % Lymphocytes % Monocytes % Eosinophils % Basophils % Nucleated RBC % Absolute Neutrophils Absolute Lymphocytes Absolute Monocytes Absolute Eosinophils Absolute Basophils VBG pH VBG pCO2 VBG pO2 VBG HCO3 VBG Total CO2 VBG O2 Saturation VBG Base Excess VBG Lactate Sodium 140 136 Potassium 3.4 L 3.5 Chloride 106 101 Carbon Dioxide 27.4 27.4 Anion Gap 6.6 7.6 BUN 12 12 Creatinine 0.5 L 0.7 Est GFR (CKD-EPI 2020) 94.17 86.83 Glucose 117 H 287 H Calcium 8.3 L 8.1 L Magnesium 1.7 L 1.8 Total Bilirubin AST ALT Alkaline Phosphatase Troponin I Total Protein Albumin Lipase Procalcitonin 0.40 Urine Color Urine Clarity Urine pH Ur Specific [place] Urine Protein Urine Ketones Urine Blood Urine Nitrite Urine Bilirubin Urine Urobilinogen Ur Leukocyte Esterase Urine RBC Urine WBC Ur Epithelial Cells Urine Crystals Urine Bacteria Urine Casts Urine Mucus Ur Culture Indicated? Urine Glucose COVID-19 Source SARS-CoV-2 (PCR) Influenza Type A (PCR) Influenza Type B (PCR) RSV (PCR) Preliminary micro results at discharge 02/26/25 12:55 Blood Blood Culture - Preliminary NO GROWTH 24 HOURS 02/26/25 12:30 Blood Blood Culture - Preliminary NO GROWTH 24 HOURS PFSH All Active Problems (Updated 03/01/25 @ 00:02 by VISHAL GUPTA) Splenic infarct (Acute) Abdominal pain (Acute) Diabetes mellitus (Chronic) Nausea & vomiting (Acute) Impaired functional mobility, balance, gait, and endurance (Acute) Peripheral neuropathy (Acute) Diabetic amyotrophy (Acute) Peroneal neuropathy (Acute) Heart murmur (Acute) Balance problem (Acute) Foot drop, left (Acute) Low back pain potentially associated with radiculopathy (Acute) Hip pain (Acute) Diabetes mellitus with neuropathy (Acute) Nail dystrophy (Acute) Memory changes (Acute) Mass, brain (Acute) MRI 04/17/23 3mm small enhancing focus ? mets Adenocarcinoma of [place] (Acute) [place] [facility] [place]pertension (Chronic) Acute on chronic anemia (Acute) Liver failure, acute (Acute) Hyperbilirubinemia (Acute) Jaundice (Acute) Diverticulosis of colon without diverticulitis (Chronic) Lichen planus (Chronic) mouth OAB (overactive bladder) (Acute) Medical History (Updated 03/01/25 @ 00:02 by VISHAL GUPTA) Kidney stone Calculus of left ureter Anxiety chronic benzodiazipine use 03/27/17 FLOR-7 SCORE=7 07/02/17 FLOR-7 SCORE=13 Thrombocytopenia Nuclear age-related cataract, left eye Ingrown nail Osteoporosis Insomnia Hematuria Neg work-up 2013. UA not meeting RBC in years since for repeat Right hip pain (03/27/17) Hypercholesterolemia Generalized osteoarthrosis low back pain; xray + DJD Ingrowing toenail (04/14/14) Hematuria unspeficified; asymptomatic; neg W/U Fatigue 06/26/12 Ingrown toenail 04/14/14 Urinary tract infectious disease recurrent Surgical History Nuclear age-related cataract, right eye History of cataract surgery History of bladder repair surgery Status post laparoscopic hysterectomy H/O bladder repair surgery sling S/P laparoscopic hysterectomy 05/07/83 partial, dysmenorrhea Hysterectomy, Laproscopic (~1983) partial; dysmenorrhea Bladder Surgery (~1999) SLING Family History Mother , age 92 Dementia Father , age 78 Cancer Brother Asthma Brother ALS (amyotrophic lateral sclerosis) Brother No problems noted. Maternal Grandfather , age 50 Black lung disease Paternal Grandfather , age 65 Black lung disease Maternal Grandmother , age 80 No problems noted. Paternal Grandmother , age 84 No problems noted. Son No problems noted. Son No problems noted. Social History Smoking/Tobacco Use Status: Former Tobacco Use tobacco type: cigarettes Quit Date: 05/07/97 Tobacco: How many years used: 15 Second Hand Exposure: Yes Smoking risk assessment performed?: Yes Alcohol Intake: current Alcohol Intake frequency: holidays/special occasions only Drug use: Never Substance use type: does not use Adopted: No Household members: spouse Housing: house Number of Children: 2 number of grandchildren: 4 Communication Needs: None Education Level: college Details: A.S. 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 Pets and animals: No Sexually active: No Do you think of yourself as: straight/heterosexual Current gender identity: female What is your relationship status?: How often do you talk on the phone with friends or family?: three or more times per week How often do you get together with friends or relatives?: decline to answer How often do you attend taoism or religion services?: 4 or more times per year Do you belong to any clubs or organized social groups?: yes Panel score (0-1 are the most socially isolated patients): 4 What type of physical activity do you participate in: walking, aerobic, bicycling and swimming Duration: 30-45 minutes/day Frequency: 3-4 times per week Lorraine/Yazdanism: Taoist Special lorraine needs: No Seatbelt use: always Helmet use: Yes Helmet use: always Drive intox or ride w/intox spotter driver: No Firearms in home: Yes Do you feel safe at home: Yes Do you feel safe in your relationship?: Yes Victim of physical abuse: No Victim of emotional abuse: No Victim of sexual abuse: No Would you like helpful sources: No Additional Social history: lives with of 59 years [place] in [place] Time Spent with Patient Time Spent with Patient: <45 minutes Time was spent: preparing to see the patient(eg.review tests), obtaining and/or reviewing separately otained hiistory, ordering medications,tests, procedures, referring, communicating with other health healthcare analyst, indepentently interpreting results, counseling the patient and care coordination
--- NOTE | 2025-02-28 17:33 | CMDISCH_ITS ---
Date of service: 02/28/25 Time of Service: 17:34 LACE Index Scoring Tool Questions: Length of Stay (in days): 2 Was the patient admitted via the E.D.?: Yes Comorbidities: Diabetes w/o Complication and Any Tumor E.D. Visits: 5 Answers: Total Score: 12 Risk of Readmission: High Risk Care Management Discharge Plan Reason for Hospitalization: hypoglycemia Discharge Plan: Tina was discharged home earlier today with no new home care services. She will f/u with her PCP and continue per her discharge plan of care. Tina was transported home by her . Patient/Family Education Needs: Review of discharge instructions, activity, limitations, and discuss Ask me 3. SDOH Health Related Social Needs: Health related social needs material hardship educatio n Health related social needs details pt has caregiver c ome in 3 x /week Health related social needs details: pt has caregiver come in 3 x /week
--- NOTE | 2025-03-20 19:00 | PGE_ITS ---
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 She has biliary and duodenal stents. She has abdominal ascites. She was evaluated by [facility] for additional stenting procedures. On March 20 she was transferred to [facility] for additional stenting. She will need palliative care support. (2) Abdominal ascites: Status: Chronic Assessment and plan: Acute on chronic Anticipate some improvement with stenting. (3) Diabetes mellitus with neuropathy: Status: Chronic Assessment and plan: Mar 12 A1C 7.4 Home regimen is insulin Continue SSI (4) Hypertension: Status: Chronic Assessment and plan: Continue home regimen Subjective Subjective Interval history since last seen: Ms. Juarez had her procedure at [facility] this afternoon and has returned to [facility]. She is tired but comfortable. Tolerating PO. Exam Narrative Exam Narrative: General: This is a pleasant woman in no distress in bed. Jaundiced in face, neck and chest. HEENT: Normocephalic, atraumatic. Sclera icteric. CV: RRR Resp: CTAB Abd: soft, NTND MSK: voluntary motion x4 Neuro: awake, alert, no focal deficits Objective Last Vital Signs Temp 36.5 C 02/28/25 11:17 Pulse 67 02/28/25 11:17 Resp 16 02/28/25 11:17 BP 121/78 02/28/25 11:17 Pulse Ox 95 02/28/25 11:17 Time Spent with Patient Time Spent with Patient: 25-34 minutes Time was spent: preparing to see the patient(eg.review tests), obtaining and/or reviewing separately otained hiistory, ordering medications,tests, procedures, referring, communicating with other health acute care clinical nurse specialist, indepentently interpreting results, counseling the patient and care coordination
== END 2025-02-28 15:48 | disposition home or self-care (01) | DRG 638 ==
LOC: ER 15:09 → MS 16:21
PROVIDERS: Admitting Provider Family Medicine; Emergency Provider Physician Assistant; PCP Family Medicine; Responsible Provider Family Medicine; Visit Provider Family Medicine
DX: E11.649 Type 2 diabetes mellitus with hypoglycemia without coma (principal); C25.0 Malignant neoplasm of head of pancreas; R65.10 Systemic inflammatory response syndrome (SIRS) of non-infectious origin without acute organ dysfunction; C79.9 Secondary malignant neoplasm of unspecified site; R53.1 Weakness; R11.0 Nausea; R79.89 Other specified abnormal findings of blood chemistry; D73.5 Infarction of spleen; Z74.09 Other reduced mobility; E11.42 Type 2 diabetes mellitus with diabetic polyneuropathy; M54.16 Radiculopathy, lumbar region; M21.372 Foot drop, left foot; K57.30 Diverticulosis of large intestine without perforation or abscess without bleeding; N32.81 Overactive bladder; D64.9 Anemia, unspecified; F41.9 Anxiety disorder, unspecified; E11.44 Type 2 diabetes mellitus with diabetic amyotrophy; Z79.4 Long term (current) use of insulin; E78.00 Pure hypercholesterolemia, unspecified; M15.9 Polyosteoarthritis, unspecified; G47.00 Insomnia, unspecified; M81.0 Age-related osteoporosis without current pathological fracture; D69.6 Thrombocytopenia, unspecified; Z79.899 Other long term (current) drug therapy; Z59.87 Material hardship due to limited financial resources, not elsewhere classified
CPT/HCPCS: 00123; 36415; 36416; 51701; 74177; 80048; 80053; 82805; 82962; 83690; 84145; 85027; 87040; 87637; 93005; 96365; 96366; 96375; 97161; 97530; 99285; J1650; 70450; 71260; 81003; 81015; 83605; 83735; 84484; 85025; 87086; 93010; 99223; 99231; 99238; J0131; J0692; J2405; J3475; J7042

== ENCOUNTER 2025-03-05 00:03 | Outpatient (RCR) | payer OTHER, SELFPAY ==
[2025-02-12] MEDS: Normal Saline Flush 10 ML SYR IVP (13:21)
[2025-02-12 13:43] LABS: Abs Immature Grans 0.02 10^3/uL (0.0-0.06); HCT 30.7 % (36.0-46.0); HGB 10.1 g/dL (11.2-15.7); Immature Grans % 0.4 %; MCH 29.5 pg (27.0-33.0); MCHC 32.9 % (32.0-36.0); MCV 90 fL (80-95); MPV 10.9 fL (8.0-11.0); Platelet Count 397 10^3/uL (130-400); RBC 3.42 10^6/uL (3.93-5.22); RDW 13.6 % (11.7-14.6); RDW-SD 44.8 fL; WBC 5.27 10^3/uL (4.4-10.8)
[2025-02-12 14:06] LABS: ALT 125 U/L (14-59); AST 80 U/L (15-37); Albumin 2.3 g/dL (3.4-5.0); Anion Gap 6.3 mmol/L (3-11); BUN 18 mg/dL (7-18); Bilirubin, Total 0.4 mg/dL (0.2-1.0); CO2 31.7 mmol/L (21.0-32.0); Calcium 8.3 mg/dL (8.5-10.1); Chloride 101 mmol/L (98-107); Estimated GFR 86.83 (mL/min/1.73m2); Glucose 329 mg/dL (74-106); Potassium 4.4 mmol/L (3.5-5.1); Sodium 139 mmol/L (136-145); Total Protein 6.8 g/dL (6.4-8.2)
[2025-02-12 14:07] LABS: Alkaline Phosphatase 1526 U/L (46-116)
[2025-02-13 20:49] LABS: CA 19-9 1948 U/mL (<35)
[2025-03-05] MEDS: Normal Saline Flush 10 ML SYR IVP (11:11)
== END 2025-03-06 23:59 | disposition home or self-care (01) ==
LOC: INF 00:03
PROVIDERS: PCP Family Medicine; Visit Provider Internal Medicine Hematology & Oncology
DX: Z45.2 Encounter for adjustment and management of vascular access device (principal); C25.0 Malignant neoplasm of head of pancreas
CPT/HCPCS: 36591; 80053; 96523; 85025; 86301

== ENCOUNTER → 2025-03-05 03:53 | Outpatient (CLI) | payer OTHER, SELFPAY ==
--- NOTE | 2025-03-05 | DI.CT_ITS ---
Exam(s) CT CHEST/ABD/PEL W EXAM: CT CHEST/ABD/PEL W CLINICAL HISTORY: ADENOCARCINOMA HEAD PANCREAS C25.0 ASSESS TREATMENT RESPONSE. TECHNIQUE: Imaging Protocol: Axial computed tomography images with coronal and sagittal reformatted images were created and reviewed CONTRAST MATERIAL: Intravenous: Omnipaque 350 Contrast volume:100 ml Oral: Yes. Oral contrast was also administered for bowel opacification. COMPARISON: CT CT CHEST/ABD/PEL W from 02/26/2025 FINDINGS: CHEST: LUNGS: There is scattered benign small calcified granulomas in both lungs again noted.. The previously described 8 x 6 mm noncalcified nodule in the right lower lobe measures 7 x 5 mm on the present study. However, in the posterior basal segment of the right lower lobe there is a noncalcified 4-5 mm nodule now evident which was not evident on the CT scan of 02/26/2025. A nearby previously present pleural base nodule in the right lower lobe posterior basal segment appears unchanged.. There are no new significant left lung nodules. There are no pleural effusions. No new findings in the trachea and mainstem bronchi. MEDIASTINUM: There is no hilar nor mediastinal adenopathy. Thyroid gland exhibits normal size but contains multiple small sub cm nodules CARDIAC: Heart size is normal. There is mild thickening of the anterior pericardium with maximum thickness of 5 mm, consistent with small pericardial effusion.Caliber of the thoracic aorta is within normal limits. OSSEOUS: No significant osseous lesions.No fractures.. ABDOMEN: There is mild further increase in the amount of ascites in the abdomen. LIVER: There are no focal hepatic lesions identified. Aero bili is again noted in the liver, again more prominent in the left lobe and these air-filled ducts appear somewhat dilated, more so than previous. GALLBLADDER/BILIARY: Gallbladder appears unchanged from previous with no intraluminal radiopaque calculi evident and unchanged lumen size. CBD stent is again noted, unchanged in position. An adjacent self expanding stent in the duodenal C-loop is again noted extending the entire length of the duodenal C loop. This has not migrated. PANCREAS: Pancreatic head appears unchanged from previous as is the pancreatic body which contains multiple parenchymal calcifications. The pancreatic duct is not dilated. There are no new peripancreatic fluid collections. SPLEEN: Stable appearance of previously described splenic infarct. However, there is now a new hypodensity in the medial aspect of the spleen measuring approximately 3.3 x 3.2 cm. Possible new lesion. 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 The main portal vein and intrahepatic portal veins remain patent. ADRENALS: There are no significant adrenal masses. KIDNEYS: Left kidney remains unremarkable. Benign cyst in the right kidney is unchanged. No solid renal masses nor calculi. No hydronephrosis nor hydroureter.. ABDOMINAL AORTA: Abdominal aorta is not enlarged. LYMPH NODES: Amount of lymphadenopathy is stable. ABDOMINAL WALL: No evidence of significant anterior abdominal wall nor inguinal hernia. GI: There is no evidence of bowel obstruction.No free air. No abscess. PELVIS: LYMPH NODES: No new intrapelvic nor inguinal adenopathy. GI: No evidence of appendicitis.Sigmoid diverticulosis without evidence of obvious acute diverticulitis. URINARY BLADDER: No calculi nor masses evident REPRODUCTIVE: Uterus is surgically absent. No abnormal adnexal masses. OSSEOUS: No new significant osseous lesions. No fractures. IMPRESSION: 1. Compared to the CT scan of 1 year ago (02/26/2025) there is slight further increase in the amount of ascites in the abdomen and pelvis. Relatively stable appearance of the pancreatic region, CBD stent and duodenal C-loop stent with no evidence of migration. However, there is mild further dilatation of intrahepatic ducts noted in the left hepatic lobe. There are no new lesions in the liver. 2. There is a new 3.3 x 3.2 cm lesion in the medial aspect of the spleen which may be metastatic. The other splenic finding which is probably sequela of infarct is stable. 3. No new significant renal findings. 4. There is a new 5 millimeter nodule in the right lung base. Other previously described right lung nodular densities are stable. No new left lung nodules. There are no pleural effusions nor intrathoracic adenopathy. 5. Slight thickening of the anterior pericardium evident (5 mm) consistent with small pericardial effusion. Other findings as above. RADIATION DOSE DELIVERED: 741.91mGy.cm Total DLP DATA REPOSITORY: All CT scans at this facility are submitted to the National Radiology Data Registry (NRDR) Dose Index Registry (DIR) with the [employer] (ACR). RADIATION OPTIMIZATION: All CT scans at this facility use at least one of these dose optimization techniques: automated exposure control; mA and/or kV adjustment per patient size (includes targeted exams where dose is matched to clinical indication); or iterative reconstruction.
[2025-03-05] MEDS: Barium Sulfate 2% W/V-Creamy Vanilla Smoothie 450 ML BTL PO (09:07)
[2025-03-05] MEDS: Barium Sulfate 2% W/V-Berry Smoothie 450 ML BTL PO (09:07)
[2025-03-05] MEDS: Omnipaque 350 MG/ML 500 ML BTL-Imaging package IJ (11:35)
[2025-03-05] MEDS: Normal Saline - Diluent 50 ML VIAL IJ (11:35)
[2025-03-05] MEDS: Normal Saline Flush 10 ML SYR IVP (11:35)
== END ==
LOC: DI 03:53
PROVIDERS: PCP Family Medicine; Visit Provider Nurse Practitioner Family
DX: C25.0 Malignant neoplasm of head of pancreas (principal); R91.8 Other nonspecific abnormal finding of lung field
CPT/HCPCS: 74177; 71260

== ENCOUNTER 2025-03-12 00:25 | Outpatient (RCR) | payer OTHER, SELFPAY ==
[2025-03-12 12:38] LABS: Abs Immature Grans 0.06 10^3/uL (0.0-0.06); HCT 31.1 % (36.0-46.0); HGB 10.7 g/dL (11.2-15.7); Immature Grans % 0.6 %; MCH 29.2 pg (27.0-33.0); MCHC 34.4 % (32.0-36.0); MCV 85 fL (80-95); MPV 11.4 fL (8.0-11.0); Platelet Count 411 10^3/uL (130-400); RBC 3.66 10^6/uL (3.93-5.22); RDW 15.2 % (11.7-14.6); RDW-SD 47.5 fL; WBC 9.82 10^3/uL (4.4-10.8)
[2025-03-12 12:46] LABS: ALT 80 U/L (14-59); AST 109 U/L (15-37); Albumin 1.8 g/dL (3.4-5.0); Alkaline Phosphatase 982 U/L (46-116); Anion Gap 6.0 mmol/L (3-11); BUN 16 mg/dL (7-18); Bilirubin, Total 4.4 mg/dL (0.2-1.0); CO2 27.0 mmol/L (21.0-32.0); Calcium 8.4 mg/dL (8.5-10.1); Chloride 100 mmol/L (98-107); Estimated GFR 90.12 (mL/min/1.73m2); Glucose 159 mg/dL (74-106); Potassium 4.0 mmol/L (3.5-5.1); Sodium 133 mmol/L (136-145); Total Protein 7.0 g/dL (6.4-8.2)
[2025-03-12] MEDS: Normal Saline Flush 10 ML SYR IVP (14:17)
[2025-03-12 15:25] LABS: Lab Add On Test DONE
[2025-03-12 16:31] LABS: Hemoglobin A1C 7.4 % (<5.7)
[2025-03-16 13:24] LABS: CA 19-9 2765 U/mL (<35)
== END 2025-04-05 23:59 | disposition home or self-care (01) ==
LOC: INF 00:25
PROVIDERS: PCP Family Medicine; Visit Provider Internal Medicine Hematology & Oncology
DX: C25.0 Malignant neoplasm of head of pancreas (principal); E11.9 Type 2 diabetes mellitus without complications; Z45.2 Encounter for adjustment and management of vascular access device
CPT/HCPCS: 36415; 36591; 80053; 83036; 85025; 86301

== ENCOUNTER 2025-03-18 15:29 | Observation (INO) | payer OTHER, SELFPAY ==
[2025-03-18] VITALS (15 sets, daily range): BP systolic 96–146; BP diastolic 44–72; PULSE 78–101; RESP 13–24; TEMP 36.4–37.7; O2SAT 94–98
--- NOTE | 2025-03-18 17:30 | ED.GENADUL_ITS ---
Discharge Plan Disposition Patient Disposition: Admit to [facility] Condition: Stable Discharge Details Clinical Impression: Jaundice Primary Care Provider: Sarah Weldon ED Provider: Cosme Gao [place] Meds and New Rx's Prescriptions: No Action fluticasone propionate 50 mcg/actuation spray,suspension 2 spray intranasal DAILY Qty: 16 2RF Rx Instructions: administer into each nostril estradiol 0.01 % (0.1 mg/gram) cream 1 g vaginal DAILY Qty: 42.5 5RF Rx Instructions: do daily until seen by Dr Smith again methenamine hippurate 1 gram tablet 1 g PO BID Qty: 180 3RF ondansetron 8 mg tablet,disintegrating 8 mg PO Q8H PRN PRN (Reason: nausea and vomiting) Qty: 90 5RF Rx Instructions: may take every am to PREVENT nausea and 2 additional times daily if needed polyethylene glycol 3350 [Miralax] 17 gram/dose powder 17 g PO BID PRN (Reason: laxative effect) Qty: 238 4RF mirabegron [Myrbetriq] 50 mg tablet extended release 24 hr 50 mg PO DAILY Qty: 90 4RF insulin glargine [Lantus Solostar U-100 Insulin] 100 unit/mL (3 mL) insulin pen See Rx Instructions subcut BID Qty: 60 7RF Rx Instructions: 40 Unit subcutaneously a day; (DME) pen needle, diabetic [BD Ultra-Fine Mini Pen Needle] 31 gauge x 3/16 needle See Rx Instructions .ROUTE .MEDSUPPLY Qty: 90 4RF Rx Instructions: Daily E11.9 (DME) blood-glucose meter [FreeStyle Lite Meter] Kit See Rx Instructions .Route Qty: 1 0RF Rx Instructions: 3 times daily testing E11.9 Creon 24,000-76,000 -120,000 unit capsule,delayed release(DR/EC) 1 cap PO TID Qty: 270 4RF Rx Instructions: administer with meals and/or snacks Ordered by Opal Ontiveros guide alpine at [facility] [place] Tina. 05/29/23. -hb triamcinolone acetonide 0.1 % cream 1 applic TP DAILY PRN (Reason: irritation) Qty: 80 0RF quetiapine 50 mg tablet 50 mg PO BID Qty: 180 5RF (DME) pen needle, diabetic [BD Ultra-Fine Mini Pen Needle] 31 gauge x 3/16 needle See Rx Instructions .ROUTE .MEDSUPPLY Qty: 200 4RF Rx Instructions: use one BID E11.9 celecoxib 100 mg capsule 100 mg PO BID Qty: 180 2RF pregabalin 25 mg capsule 25 mg PO BID Qty: 180 3RF clonazepam 0.5 mg tablet 0.5 mg PO BID Qty: 180 3RF (DME) lancets [FreeStyle Lancets] 28 gauge misc See Rx Instructions .ROUTE .MEDSUPPLY Qty: 300 5RF Rx Instructions: 3 times daily testing E11.9 (DME) FreeStyle Test Strip See Rx Instructions .Route Qty: 300 4RF Rx Instructions: 3 times daily E11.9 insulin aspart U-100 100 unit/mL (3 mL) insulin pen 4 unit subcut AC MDD 12 Qty: 15 5RF Rx Instructions: give 4 units IF blood sugar is over 200 metoclopramide HCl [Reglan] 5 mg tablet 5 mg PO Q6H Qty: 60 0RF HPI General Date/Time Provider Initiated Documentation: 03/18/25 15:30 . Limitations to Documentation: no limitations . Information obtained by: patient . History of Present Illness 80 year old F presents to the emergency department with the chief complaint of jaundice, described as moderate, Patient started experiencing this day(s) (1) and it has been constant. No relieving factors improve symptom(s), No exacerbating factors reported . Patient notes no other symptoms.. Patient did receive the following treatments prior to arrival, none Related Data Home Medications Medication Instructions Recorded Confirmed pen needle, diabetic 31 gauge x #90 ea 10/31/2207/20 (BD Ultra-Fine Mini Pen Needle) blood-glucose meter (FreeStyle #1 ea 04/03/23 03/18/25 Lite Meter kit) polyethylene glycol 3350 17 17 g PO BID PRN laxative e ffect 04/23/23 03/18/25 gram/dose oral powder (Miralax) #238 grams Creon 24,000-76,000-120,000 unit 1 cap PO TID #270 cap s 05/30/23 03/18/25 capsule,delayed release (nvvvuh-footgrec-vtkpfyo (pork)) estradiol 0.01% (0.1 mg/gram) 1 g vaginal DAILY #42.5 grams 06/21/23 03/18/25 vaginal cream triamcinolone acetonide 0.1 % 1 applic topical DAILY P RN 06/28/23 03/18/25 topical cream irritation #80 grams fluticasone propionate 50 2 spray intranasal DAILY #16 grams 07/16/23 03/18/25 mcg/actuation nasal spray,suspension methenamine hippurate 1 gram tablet 1 g PO BID #180 ta b-caps 03/21/24 03/18/25 quetiapine 50 mg tablet 50 mg PO BID #180 tabs 06/1303/18/25 pen needle, diabetic 31 gauge x #200 ea 06/18/2403/18 (BD Ultra-Fine Mini Pen Needle) celecoxib 100 mg capsule 100 mg PO BID #180 caps 08/0603/18/25 pregabalin 25 mg capsule 25 mg PO BID #180 caps 09/0803/18/25 mirabegron 50 mg tablet,extended 50 mg PO DAILY #90 ta bs 09/17/24 03/18/25 release 24 hr (Myrbetriq) clonazepam 0.5 mg tablet 0.5 mg PO BID #180 tab-caps 09/22/24 03/18/25 insulin glargine 100 unit/mL (3 See Rx Instructions lamar bcut BID #60 10/20/24 03/18/25 mL) subcutaneous pen (Lantus mL Solostar U-100 Insulin) blood sugar diagnostic (FreeStyle #300 ea 11/03/2404/30 Test strips) lancets 28 gauge (FreeStyle #300 ea 11/03/24 03/18/25 Lancets) ondansetron 8 mg disintegrating 8 mg PO Q8H PRN PRN na usea and 12/04/24 03/18/25 tablet vomiting #90 tabs insulin aspart U-100 100 unit/mL 4 unit (0.04 mL) subc ut AC #15 mL 12/11/24 03/18/25 (3 mL) subcutaneous pen metoclopramide HCl 5 mg tablet 5 mg PO Q6H as needed f or nausea 02/28/25 03/18/25 (Reglan) when zofran not effective #6 0 tabs Previous Rx's Medication Instructions Recorded pen needle, diabetic 31 gauge x #90 ea 10/31/2207/20 (BD Ultra-Fine Mini Pen Needle) blood-glucose meter (FreeStyle #1 ea 04/03/23 Lite Meter kit) polyethylene glycol 3350 17 17 g PO BID PRN laxative e ffect 04/23/23 gram/dose oral powder (Miralax) #238 grams Creon 24,000-76,000-120,000 unit 1 cap PO TID #270 cap s 05/30/23 capsule,delayed release (wwxnwb-xvcvkxxu-lajddex (pork)) estradiol 0.01% (0.1 mg/gram) 1 g vaginal DAILY #42.5 grams 06/21/23 vaginal cream triamcinolone acetonide 0.1 % 1 applic topical DAILY P RN 06/28/23 topical cream irritation #80 grams fluticasone propionate 50 2 spray intranasal DAILY #16 grams 07/16/23 mcg/actuation nasal spray,suspension methenamine hippurate 1 gram tablet 1 g PO BID #180 ta b-caps 03/21/24 quetiapine 50 mg tablet 50 mg PO BID #180 tabs 06/13 pen needle, diabetic 31 gauge x #200 ea 06/18/2407/20 (BD Ultra-Fine Mini Pen Needle) celecoxib 100 mg capsule 100 mg PO BID #180 caps 08/06 08/29 pregabalin 25 mg capsule 25 mg PO BID #180 caps 09/08 mirabegron 50 mg tablet,extended 50 mg PO DAILY #90 ta bs 09/17/24 release 24 hr (Myrbetriq) clonazepam 0.5 mg tablet 0.5 mg PO BID #180 tab-caps 09/22/24 insulin glargine 100 unit/mL (3 See Rx Instructions lamar bcut BID #60 10/20/24 mL) subcutaneous pen (Lantus mL Solostar U-100 Insulin) blood sugar diagnostic (FreeStyle #300 ea 11/03/24 Test strips) lancets 28 gauge (FreeStyle #300 ea 11/03/24 Lancets) ondansetron 8 mg disintegrating 8 mg PO Q8H PRN PRN na usea and 12/04/24 tablet vomiting #90 tabs insulin aspart U-100 100 unit/mL 4 unit (0.04 mL) subc ut AC #15 mL 08/07/25 (3 mL) subcutaneous pen metoclopramide HCl 5 mg tablet 5 mg PO Q6H as needed f or nausea 02/28/25 (Reglan) when zofran not effective #6 0 tabs Allergies Allergy/AdvReac Type Severity Reaction Status Date / Time ibuprofen AdvReac Mild Stomach Verified 03/18/25 15:44 cramps General Stated Complaint: GenMedical ANDER: 3 Review of Systems All systems reviewed & are unremarkable except as noted in HPI and below Constitutional Constitutional: Denies chills and Denies fever(s) Cardiovascular Cardiovascular: Denies chest pain and Denies dyspnea Respiratory Respiratory: Denies cough and Denies dyspnea Gastrointestinal Gastrointestinal: Denies abdominal pain, Denies nausea and Denies vomiting Integumentary/Breasts Skin/Breast: Reports jaundice Exam Const General: no acute distress Orientation: alert HENMT Head: normal to inspection Ears: external ears normal General nose exam: external nose normal Mouth: moist mucous membranes Neck Neck: normal visual inspection Resp Effort & Inspection: normal respiratory effort and able to speak in complete sentences Cardio Rate: regular rate GI Palpation: soft and nontender Skin General skin exam: jaundice Neuro General: patient alert and patient oriented x3 Extrem General: normal to inspection Psych Mental Status: mental status grossly normal Course Vital Signs Vital signs: Vital Signs Temperature 36.8 C 03/18/25 15:41 Pulse 78 03/18/25 15:41 Respiratory Rate 20 03/18/25 15:41 Blood Pressure 116/72 03/18/25 15:41 Pulse Oximetry 94 03/18/25 15:41 Temperature 36.8 C 03/18/25 15:41 Pulse 78 03/18/25 15:41 Respiratory Rate 20 03/18/25 15:41 Blood Pressure 116/72 03/18/25 15:41 Blood Pressure Position Sitting 03/18/25 15:41 Pulse Oximetry 94 03/18/25 15:41 Oxygen Delivery Method Room Air 03/18/25 15:41 Oxygen Flow Rate 0 03/18/25 15:41 Medical Decision Making 80-year-old female with a history of pancreatic cancer who is likely going to be starting hospice soon comes in with jaundice that started today. Denies any fevers, no abdominal pain. She is jaundiced of her skin. She says this has happened before and has had have a stent placed at [facility]. She has no abdominal tenderness. I suspect she has biliary obstruction from her cancer, will check CBC CMP and obtain a CT abdomen pelvis to further evaluate. Patient stable, bilirubin is 7, CT shows no obvious obstruction of prior placed stents, has findings consistent with likely prior stenting with pneumobilia but radiology recommends Mrcp for further evaluation. Patient to have a low-grade fever 37.7, discussed with hospitalist who will plan to admit for MRCP in the morning will cover with a dose of Zosyn. Differential Diagnosis Differential Diagnosis: Cancer, obstruction Lab Data Lab results reviewed: Yes I reviewed the patient's lab results. 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 (Acute) Advance care planning (Acute) Abdominal ascites (Acute) Splenic infarct (Acute) Abdominal pain (Acute) Diabetes mellitus (Chronic) Nausea & vomiting (Acute) Impaired functional mobility, balance, gait, and endurance (Acute) Peripheral neuropathy (Acute) Diabetic amyotrophy (Acute) Peroneal neuropathy (Acute) Heart murmur (Acute) Balance problem (Acute) Foot drop, left (Acute) Low back pain potentially associated with radiculopathy (Acute) Hip pain (Acute) Diabetes mellitus with neuropathy (Acute) Nail dystrophy (Acute) Memory changes (Acute) Mass, brain (Acute) MRI 04/17/23 3mm small enhancing focus ? mets Adenocarcinoma of pancreas (Acute) [place] 03/29 at [facility] Hypertension (Chronic) Acute on chronic anemia (Acute) Liver failure, acute (Acute) Hyperbilirubinemia (Acute) Jaundice (Acute) Diverticulosis of colon without diverticulitis (Chronic) Lichen planus (Chronic) mouth OAB (overactive bladder) (Acute) Medical History Kidney stone Calculus of left ureter Anxiety chronic benzodiazipine use 03/27/17 FLOR-7 SCORE=7 07/02/17 FLOR-7 SCORE=13 Thrombocytopenia Nuclear age-related cataract, left eye Ingrown nail Osteoporosis Insomnia Hematuria Neg work-up 2013. UA not meeting RBC in years since for repeat Right hip pain (03/27/17) Hypercholesterolemia Generalized osteoarthrosis low back pain; xray + DJD Ingrowing toenail (04/14/14) Hematuria unspeficified; asymptomatic; neg W/U Fatigue 06/26/12 Ingrown toenail 04/14/14 Urinary tract infectious disease recurrent Surgical History Nuclear age-related cataract, right eye History of cataract surgery History of bladder repair surgery Status post laparoscopic hysterectomy H/O bladder repair surgery sling S/P laparoscopic hysterectomy 05/07/83 partial, dysmenorrhea Hysterectomy, Laproscopic (~1983) partial; dysmenorrhea Bladder Surgery (~1999) SLING Family History Mother , age 92 Dementia Father , age 78 Cancer Brother Asthma Brother ALS (amyotrophic lateral sclerosis) Brother No problems noted. Maternal Grandfather , age 50 Black lung disease Paternal Grandfather , age 65 Black lung disease Maternal Grandmother , age 80 No problems noted. Paternal Grandmother , age 84 No problems noted. Son No problems noted. Son No problems noted. Social History Smoking/Tobacco Use Status: Former Tobacco Use tobacco type: cigarettes Quit Date: 05/07/97 Tobacco: How many years used: 15 Second Hand Exposure: Yes Smoking risk assessment performed?: Yes Alcohol Intake: current Alcohol Intake frequency: holidays/special occasions only Drug use: Never Substance use type: does not use Adopted: No Household members: spouse Housing: house Number of Children: 2 number of grandchildren: 4 Communication Needs: None Education Level: college Details: A.S. 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 Pets and animals: No Sexually active: No Do you think of yourself as: straight/heterosexual Current gender identity: female What is your relationship status?: How often do you talk on the phone with friends or family?: three or more times per week How often do you get together with friends or relatives?: decline to answer How often do you attend holiness or moravian services?: 4 or more times per year Do you belong to any clubs or organized social groups?: yes Panel score (0-1 are the most socially isolated patients): 4 What type of physical activity do you participate in: walking, aerobic, bicycling and swimming Duration: 30-45 minutes/day Frequency: 3-4 times per week Lorraine/Baptism: Moravian Special lorraine needs: No Seatbelt use: always Helmet use: Yes Helmet use: always Drive intox or ride w/intox 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
[2025-03-18 18:00] LABS: Abs Immature Grans 0.08 10^3/uL (0.0-0.06); HCT 31.9 % (36.0-46.0); HGB 11.0 g/dL (11.2-15.7); Immature Grans % 0.6 %; MCH 28.6 pg (27.0-33.0); MCHC 34.5 % (32.0-36.0); MCV 83 fL (80-95); MPV 12.0 fL (8.0-11.0); Platelet Count 249 10^3/uL (130-400); RBC 3.85 10^6/uL (3.93-5.22); RDW 17.4 % (11.7-14.6); RDW-SD 51.8 fL; WBC 12.96 10^3/uL (4.4-10.8)
[2025-03-18 18:12] LABS: INR 1.0 (0.9-1.1); PTT Activated 24.6 sec (20.6-30.2); Prothrombin Time 10.3 sec (9.1-11.1)
[2025-03-18 18:34] LABS: Lipase 13 U/L (<53); Magnesium 1.6 mg/dL (1.6-2.6)
[2025-03-18 18:37] LABS: ALT 99 U/L (10-49); AST 171 U/L (<34); Albumin 2.8 g/dL (3.4-5.0); Alkaline Phosphatase 892 U/L (46-116); Anion Gap 4.8 mmol/L (3-11); BUN 20 mg/dL (9-23); Bilirubin, Direct 5.3 mg/dL (<=0.3); Bilirubin, Total 7.40 mg/dL (0.2-1.2); CO2 26.2 mmol/L (20.0-31.0); Calcium 7.8 mg/dL (8.3-10.6); Chloride 105 mmol/L (98-107); Glucose 106 mg/dL (74-106); Sodium 136 mmol/L (136-145); Total Protein 7.0 g/dL (5.7-8.2)
[2025-03-18 18:39] LABS: Potassium 4.6 mmol/L (3.5-5.1)
--- NOTE | 2025-03-18 19:04 | DI.CT_ITS ---
Exam(s) CT ABDOMEN PELVIS W EXAM: CT ABDOMEN PELVIS W CLINICAL HISTORY: jaundice. TECHNIQUE: Imaging Protocol: Axial computed tomography images with coronal and sagittal reformatted images were created and reviewed CONTRAST MATERIAL: Intravenous: Omnipaque-350 75cc Oral: None COMPARISON: CT CT CHEST/ABD/PEL W from 03/05/2025 FINDINGS: VISUALIZED LUNG BASES: Small noncalcified nodule in the posterior basal segment of the right lower lobe is again noted. It measures 7 mm. No pleural effusions.. ABDOMEN: There has been slight further increase in the amount of ascites in the abdomen and pelvis. GI: There is a stent throughout the length of the duodenum again noted extending from the gastric antrum to the 4th part of the duodenum. There is some thickening of the duodenal wall noted. There are 2 gas bubbles in soft tissues medial to the duodenal stent. May represent free air. LIVER: There are no focal hepatic lesions evident. The position of the CBD stent is stable. However, the common hepatic duct above this level is dilated measuring 11-12 mm and there is dilatation of intrahepatic ducts in both hepatic lobes noted. Also again noted is expected aerobilia in intrahepatic ducts in the left lobe of the liver. There is no evidence of intrahepatic nor main portal vein thrombosis. No evidence of Budd-Chiari. GALLBLADDER/BILIARY: Is again noted be distended, similar to previous. No obvious gallstones in the gallbladder lumen. There is some pericholecystic fluid again noted but this is most probably part of the generalized ascites. PANCREAS: Pancreatic body and tail atrophy and parenchymal calcifications again noted as is some prominence of the duct. The pancreatic head and uncinate process also appears similar to the prior study of 03/05/2025. Appears similar to previous. SPLEEN: Again noted is a previously described splenic infarct which appears similar to previous. The recently described subtle area of possible new lesion in the medial aspect of the spleen is not evident on the present study. 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 ADRENALS: There are no significant adrenal masses. KIDNEYS:There is a cyst again noted in the right kidney, unchanged. This benign cyst does not require further workup. No solid renal masses. The calculus which was previously present in the upper right ureter at the UPJ level has now descended to the level of the pelvis where the ureter crosses over the right iliac artery. This calculus again measures 6 x 4 mm. There is minimal if any significant dilatation of the right collecting system above this level. No abnormal ipsilateral nephrogram to suggest pyelonephritis. However, there is thickening of the urinary bladder wall which is suspicious for cystitis. There are no radiopaque calculi seen in the urinary bladder lumen. No calculi in the left ureter. No remaining calculi in either kidney. No solid renal masses.. ABDOMINAL AORTA: Abdominal aorta is not enlarged. LYMPH NODES:There is no retroperitoneal nor paraaortic adenopathy. ABDOMINAL WALL: No evidence of significant anterior abdominal wall nor inguinal hernia. GI: There is no evidence of bowel obstruction, free air, nor abscess. PELVIS: GI: There are now multiple calcified densities in the appendix which were not evident on the 03/05/2025 study. There is no evidence of obvious acute appendicitis.There is sigmoid diverticulosis without obvious acute diverticulitis. LYMPH NODES: There is no intrapelvic nor inguinal adenopathy. REPRODUCTIVE: Uterus is surgically absent. No abnormal adnexal masses. URINARY BLADDER: Thickened wall consistent with probable cystitis. No radiopaque calculi nor masses in the bladder evident. OSSEOUS: No fractures and no significant osseous lesions. IMPRESSION: 1. Compared to the prior recent CT scan of 03/05/2025 the 6 x 4 mm right-sided renal calculus which was previously in the upper right ureter at the UPJ has migrated caudally approximately 11 mm and is presently in the right pelvic ureter where it crosses the right iliac vessels. There is minimal if any significant dilatation of the urinary tract above this level. There are no remaining calculi in the kidneys and no obvious nephrogram appearance of pyelonephritis. However, the urinary bladder is somewhat thickened and concerning for cystitis. 2. There is an increasing amount of ascites in the abdomen pelvis when compared to 03/05/2025. 3. CBD stent is again noted which appears to be in satisfactory position but there is still dilatation of the common hepatic duct and intrahepatic ducts above this level. 4. The stent extending from the gastric antrum to the 3rd part of the duodenum is again noted, unchanged in position. There is some wall thickening of the gastric antrum and duodenum again noted. Either gastritis/duodenitis or reactive to the presence of a stent. Also, possible concern is the appearance of to gas bubbles which appear independent of the bowel lumen located in the midline medial to the duodenal stent. Cannot exclude free air at this level (coronal image 30/axial image 41). 5. There are now multiple calcifications in what appears to be the lumen of the appendix-probable appendicular lith which were not previously evident. However, there is no evidence of obvious acute appendicitis. 6. There is sigmoid diverticulosis without evidence acute diverticulitis. RADIATION DOSE DELIVERED: 334.25mGy.cm Total DLP DATA REPOSITORY: All CT scans at this facility are submitted to the National Radiology Data Registry (NRDR) Dose Index Registry (DIR) with the [employer] (ACR). RADIATION OPTIMIZATION: All CT scans at this facility use at least one of these dose optimization techniques: automated exposure control; mA and/or kV adjustment per patient size (includes targeted exams where dose is matched to clinical indication); or iterative reconstruction.
[2025-03-18] MEDS: Omnipaque 350 MG/ML 100 ML BTL IJ (19:12)
[2025-03-18] MEDS: Normal Saline - Diluent 50 ML VIAL IJ (19:13)
[2025-03-18] MEDS: Normal Saline Flush 10 ML SYR IVP ×2 (19:13→22:46)
--- NOTE | 2025-03-18 19:36 | DI.VRAD_ITS ---
PROCEDURE INFORMATION: Exam: CT Abdomen And Pelvis With Contrast Exam date and time: 03/18/2025 18:52 Age: 80 years old Clinical indication: Other: Jaundice; Prior surgery; Surgery date: 6+ months; Surgery type: Known pancreatic cancer. Bladder repair surgery. Splenic graft TECHNIQUE: Imaging protocol: Computed tomography of the abdomen and pelvis with contrast. Radiation optimization: All CT scans at this facility use at least one of these dose optimization techniques: automated exposure control; mA and/or kV adjustment per patient size (includes targeted exams where dose is matched to clinical indication); or iterative reconstruction. Contrast material: [id number]; Contrast volume: 75 ml; Contrast route: INTRAVENOUS (IV); COMPARISON: CT CHEST/ABD/PEL W 03/05/2025 11:20 FINDINGS: Lungs: Right basilar pulmonary nodule again seen. Liver: No hepatic masses. Gallbladder and biliary ducts: Moderate dilation throughout the biliary tree. The distal CBD stent is in similar position and appears patent. Expected pneumobilia. Distended gallbladder. No calcified stones. Pancreas: Chronic changes of the pancreas including atrophy, calcification and prominence of the duct again seen. The pancreas appears less inflamed than prior. Spleen: The nonacute appearing splenic infarct measuring up to 6 x 3 cm is very similar. The capsule is retracting slightly. No significant splenomegaly. Adrenal glands: No suspicious mass. Kidneys and ureters: Benign-appearing renal cyst(s) and/or probable cyst(s). No renal masses or hydronephrosis bilaterally. Stomach and bowel: The stent extending across gastric antrum, pylorus and duodenum is in stable position. Moderate wall thickening of the gastric antrum, similar to prior. The duodenal wall is challenging to assess similar to prior but is likely moderately thickened. Colonic diverticulosis without diverticulitis. Moderate colonic stool burden. No convincing small bowel obstruction or enteritis. Appendix: No evidence of appendicitis. Intraperitoneal space: Slightly increased, small four-quadrant ascites. 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 Atherosclerosis. Lymph nodes: Mild upper abdominal adenopathy, similar to prior. Mildly prominent in number retroperitoneal lymph nodes, similar to prior. Multifocal mesenteric adenopathy and mesenteric edema, similar to prior. Urinary bladder: Mild urinary bladder wall thickening with hyperemia of the wall. Reproductive: Hysterectomy. Bones/joints: Chronic bony changes with no acute fracture. Soft tissues: No suspicious lesions. IMPRESSION: 1. Slightly increased, small four-quadrant ascites. 2. Moderate dilation throughout the biliary tree. The distal CBD stent is in similar position and appears patent. Expected pneumobilia. Presumably chronic however could be worked up with MRCP if clinically indicated. 3. The stent extending across gastric antrum, pylorus and duodenum is in stable position. 4. The nonacute appearing splenic infarct measuring up to 6 x 3 cm is very similar. The capsule is retracting slightly. 5. Moderate wall thickening of the gastric antrum, similar to prior. Suspected chronic duodenitis, similar. 6. Mild cystitis, not previously imaged, could be acute or chronic. 7. Additional findings as described. Dictated and Authenticated by: Yuni Mcginnis MD. Orderin Murray Aguiar MD
--- NOTE | 2025-03-18 20:13 | HPE_ITS ---
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 She has had previous stents placed for biliary obstruction and appears to have progressive biliary obstruction presently with increasing total bilirubin and jaundice. She is not having abdominal pain. She is eating fairly well. She denies fever or chills but does have an increased WBC by lab evaluation. CT of the abdomen and pelvis did show progression of her disease. [facility] specialist did recommend MRCP in the morning with follow-up call as to plan of care. Patient is approaching patent care with hospice and has had support at home for this treatment plan. She is a DNR/DNI. (2) Jaundice: Start date: 03/18/25 Status: Acute Assessment and plan: Worsening with progressive pancreatic cancer and probable increased obstruction which may not be treatable other than percutaneous drainage. (3) Abdominal ascites: Status: Chronic Assessment and plan: Progressing with disease. Asymptomatic. (4) Diabetes mellitus: Status: Chronic Assessment and plan: Patient will have glucometer measurements with sliding scale coverage while in the hospital holding her usual outpatient medical therapy. (5) Diabetes mellitus with neuropathy: Status: Chronic Assessment and plan: Continue outpatient medical therapy with pregabalin. (6) Hypertension: Status: Chronic Assessment and plan: Slightly elevated not on therapy. Monitor while hospitalized. History of Present Illness History of Present Illness Chief Complaint: Jaundice advancing with pancreatic cancer status post stenting. Narrative: This is an 80-year-old female patient who was diagnosed with pancreatic cancer in late 2022 with progression of her cancer electing not to have a Whipple's procedure and despite chemotherapy. She has had stents placed in her biliary ducts to help with draining but these appear to be obstructing now with increasing jaundice. She is not having increasing pain but has had some decreased appetite and about 35 pound weight loss since her diagnosis. She is seeing palliative care and is a DNR/DNI. She does have a at home and family to be her caretakers if she is not doing well. She present today because of jaundice and in the ED evaluation did show obstruction with her pancreatic tumor progressing. [facility] GI/oncology did recommend MRCP for reevaluation and want to be called with results with patient to be observed overnight until procedure can be performed. She is eating and drinking well and as stated, having no pain. Her chronic medical problems appear to be stable. She is diabetic with neuropathy being treated and does have an overactive bladder. She is on Creon because of her pancreatic disease. As stated, the patient is a DNR/DNI. Review of Systems Narrative: 13 point review of system otherwise unrevealing or stable. 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 (Chronic) Advance care planning (Acute) Abdominal ascites (Chronic) Splenic infarct (Acute) Abdominal pain (Acute) Diabetes mellitus (Chronic) Nausea & vomiting (Acute) Impaired functional mobility, balance, gait, and endurance (Acute) Peripheral neuropathy (Acute) Diabetic amyotrophy (Acute) Peroneal neuropathy (Acute) Heart murmur (Acute) Balance problem (Acute) Foot drop, left (Acute) Low back pain potentially associated with radiculopathy (Acute) Hip pain (Acute) Diabetes mellitus with neuropathy (Chronic) Nail dystrophy (Acute) Memory changes (Acute) Mass, brain (Acute) MRI 04/17/23 3mm small enhancing focus ? mets Adenocarcinoma of pancreas (Acute) bx 03/29 at [facility] Hypertension (Chronic) Acute on chronic anemia (Acute) Liver failure, acute (Acute) Hyperbilirubinemia (Acute) Jaundice (Acute) Diverticulosis of colon without diverticulitis (Chronic) Lichen planus (Chronic) mouth OAB (overactive bladder) (Acute) Medical History Kidney stone Calculus of left ureter Anxiety chronic benzodiazipine use 03/27/17 FLOR-7 SCORE=7 07/02/17 FLOR-7 SCORE=13 Thrombocytopenia Nuclear age-related cataract, left eye Ingrown nail Osteoporosis Insomnia Hematuria Neg work-up 2013. UA not meeting RBC in years since for repeat Right hip pain (03/27/17) Hypercholesterolemia Generalized osteoarthrosis low back pain; xray + DJD Ingrowing toenail (04/14/14) Hematuria unspeficified; asymptomatic; neg W/U Fatigue 06/26/12 Ingrown toenail 04/14/14 Urinary tract infectious disease recurrent Surgical History Nuclear age-related cataract, right eye History of cataract surgery History of bladder repair surgery Status post laparoscopic hysterectomy H/O bladder repair surgery sling S/P laparoscopic hysterectomy 05/07/83 partial, dysmenorrhea Hysterectomy, Laproscopic (~1983) partial; dysmenorrhea Bladder Surgery (~1999) SLING Family History Mother , age 92 Dementia Father , age 78 Cancer Brother Asthma Brother ALS (amyotrophic lateral sclerosis) Brother No problems noted. Maternal Grandfather , age 50 Black lung disease Paternal Grandfather , age 65 Black lung disease Maternal Grandmother , age 80 No problems noted. Paternal Grandmother , age 84 No problems noted. Son No problems noted. Son No problems noted. Social History Smoking/Tobacco Use Status: Former Tobacco Use tobacco type: cigarettes Quit Date: 05/07/97 Tobacco: How many years used: 15 Second Hand Exposure: Yes Smoking risk assessment performed?: Yes Alcohol Intake: current Alcohol Intake frequency: holidays/special occasions only Drug use: Never Substance use type: does not use Adopted: No Household members: spouse Housing: house Number of Children: 2 number of grandchildren: 4 Communication Needs: None Education Level: college Details: A.S. 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 Pets and animals: No Sexually active: No Do you think of yourself as: straight/heterosexual Current gender identity: female What is your relationship status?: How often do you talk on the phone with friends or family?: three or more times per week How often do you get together with friends or relatives?: decline to answer How often do you attend druze or restorationism services?: 4 or more times per year Do you belong to any clubs or organized social groups?: yes Panel score (0-1 are the most socially isolated patients): 4 What type of physical activity do you participate in: walking, aerobic, bicycling and swimming Duration: 30-45 minutes/day Frequency: 3-4 times per week Lorraine/Oriental Orthodox: Jain Special lorraine needs: No Seatbelt use: always Helmet use: Yes Helmet use: always Drive intox or ride w/intox farm truck driver: No Firearms in home: Yes Do you feel safe at home: Yes Do you feel safe in your relationship?: Yes Victim of physical abuse: No Victim of emotional abuse: No Victim of sexual abuse: No Would you like helpful sources: No Additional Social history: lives with of 59 years [place]oug[place] in [facility] Allergies and Home Medications Allergies Allergy/AdvReac Type Severity Reaction Status Date / Time ibuprofen AdvReac Mild Stomach Verified 03/18/25 15:44 cramps Home Medications Medication Instructions Recorded Confirmed Type pen needle, diabetic 31 gauge x #90 ea 10/31/22 Rx 3/16 (BD Ultra-Fine Mini Pen Needle) blood-glucose meter (FreeStyle #1 ea 04/03/23 03/18/25 Rx Lite Meter kit) polyethylene glycol 3350 17 17 g PO BID PRN laxative e ffect 04/23/23 03/18/25 Rx gram/dose oral powder (Miralax) #238 grams Creon 24,000-76,000-120,000 unit 1 cap PO TID #270 cap s 05/30/23 03/18/25 Rx capsule,delayed release (bglyyv-femgblzv-svaeqna (pork)) estradiol 0.01% (0.1 mg/gram) 1 g vaginal DAILY #42.5 grams 06/21/23 03/18/25 Rx vaginal cream triamcinolone acetonide 0.1 % 1 applic topical DAILY P RN 06/28/23 03/18/25 Rx topical cream irritation #80 grams fluticasone propionate 50 2 spray intranasal DAILY #16 grams 07/16/23 03/18/25 Rx mcg/actuation nasal spray,suspension methenamine hippurate 1 gram tablet 1 g PO BID #180 ta b-caps 03/21/24 03/18/25 Rx quetiapine 50 mg tablet 50 mg PO BID #180 tabs 06/1303/18/25 Rx pen needle, diabetic 31 gauge x #200 ea 06/18/2403/18 Rx 3/16 (BD Ultra-Fine Mini Pen Needle) celecoxib 100 mg capsule 100 mg PO BID #180 caps 08/0603/18/25 Rx pregabalin 25 mg capsule 25 mg PO BID #180 caps 09/0803/18/25 Rx mirabegron 50 mg tablet,extended 50 mg PO DAILY #90 ta bs 09/17/24 03/18/25 Rx release 24 hr (Myrbetriq) clonazepam 0.5 mg tablet 0.5 mg PO BID #180 tab-caps 09/22/24 03/18/25 Rx insulin glargine 100 unit/mL (3 See Rx Instructions lamar bcut BID #60 10/20/24 03/18/25 Rx mL) subcutaneous pen (Lantus mL Solostar U-100 Insulin) blood sugar diagnostic (FreeStyle #300 ea 11/03/2404/30 Rx Test strips) lancets 28 gauge (FreeStyle #300 ea 11/03/24 03/18/25 Rx Lancets) ondansetron 8 mg disintegrating 8 mg PO Q8H PRN PRN na usea and 12/04/24 03/18/25 Rx tablet vomiting #90 tabs insulin aspart U-100 100 unit/mL 4 unit (0.04 mL) subc ut AC #15 mL 12/11/24 03/18/25 Rx (3 mL) subcutaneous pen metoclopramide HCl 5 mg tablet 5 mg PO Q6H as needed f or nausea 02/28/25 03/18/25 Rx (Reglan) when zofran not effective #6 0 tabs Exam Narrative Exam Narrative: General: Patient appears appropriate for age, in no acute distress and alert and oriented x 3. HEENT: Normocephalic, eyes with pupils equal and react to light symmetrically, extraocular movement tact and sclera did not appear icteric. Oropharynx with moist Koza and fair dentition. Neck: Supple without JVD. Back: Stooped posture without CVA tenderness. Lungs: Fair aeration and clear to auscultation percussion with no focalizing rales or rhonchi and no expiratory wheeze. Breast: Exam deferred. Heart: Irregular rhythm with 3-4/6 systolic murmur left sternal border. No gallops or rubs. Abdomen: Slightly protuberant but soft with no focalizing tenderness, guarding or rebound. No palpable hepatosplenomegaly. No tympany. Bowel sounds positive in all quadrants. Genitalia/rectal: Exam deferred. Extremities: Without clubbing, cyanosis or pitting edema. Good capillary refill. Skin: Jaundice, warm and dry. Neuro: Cranial nerves II through XII gross intact, no focalized motor deficits or tremor. Psych: Normal affect and mood. No abnormal thought processes. Remote and recent memory intact. Results Imaging Imaging Studies: Exam: CT Abdomen And Pelvis With Contrast Exam date and time: 03/18/2025 18:52 Age: 80 years old Clinical indication: Other: Jaundice; Prior surgery; Surgery date: 6+ months; Surgery type: Known pancreatic cancer. Bladder repair surgery. Splenic graft COMPARISON: CT CHEST/ABD/PEL W 03/05/2025 11:20 FINDINGS: Lungs: Right basilar pulmonary nodule again seen. Liver: No hepatic masses. Gallbladder and biliary ducts: Moderate dilation throughout the biliary tree. The distal CBD stent is in similar position and appears patent. Expected pneumobilia. Distended gallbladder. No calcified stones. Pancreas: Chronic changes of the pancreas including atrophy, calcification and prominence of the duct again seen. The pancreas appears less inflamed than prior. Spleen: The nonacute appearing splenic infarct measuring up to 6 x 3 cm is very similar. The capsule is retracting slightly. No significant splenomegaly. Adrenal glands: No suspicious mass. Kidneys and ureters: Benign-appearing renal cyst(s) and/or probable cyst(s). No renal masses or hydronephrosis bilaterally. Stomach and bowel: The stent extending across gastric antrum, pylorus and duodenum is in stable position. Moderate wall thickening of the gastric antrum, similar to prior. The duodenal wall is challenging to assess similar to prior but is likely moderately thickened. Colonic diverticulosis without diverticulitis. Moderate colonic stool burden. No convincing small bowel obstruction or enteritis. Appendix: No evidence of appendicitis. Intraperitoneal space: Slightly increased, small four-quadrant ascites. 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 Atherosclerosis. Lymph nodes: Mild upper abdominal adenopathy, similar to prior. Mildly prominent in number retroperitoneal lymph nodes, similar to prior. Multifocal mesenteric adenopathy and mesenteric edema, similar to prior. Urinary bladder: Mild urinary bladder wall thickening with hyperemia of the wall. Reproductive: Hysterectomy. Bones/joints: Chronic bony changes with no acute fracture. Soft tissues: No suspicious lesions. IMPRESSION: 1. Slightly increased, small four-quadrant ascites. 2. Moderate dilation throughout the biliary tree. The distal CBD stent is in similar position and appears patent. Expected pneumobilia. Presumably chronic however could be worked up with MRCP if clinically indicated. 3. The stent extending across gastric antrum, pylorus and duodenum is in stable position. 4. The nonacute appearing splenic infarct measuring up to 6 x 3 cm is very similar. The capsule is retracting slightly. 5. Moderate wall thickening of the gastric antrum, similar to prior. Suspected chronic duodenitis, similar. 6. Mild cystitis, not previously imaged, could be acute or chronic. 7. Additional findings as described. Labs 03/19/25 06:12 03/19/25 06:12 Labs: Laboratory Results - last 24 hr 03/18/25 03/18/25 03/18/25 17:50 17:50 18:14 WBC 12.96 H RBC 3.85 L Hgb 11.0 L Hct 31.9 L MCV 83 MCH 28.6 MCHC 34.5 RDW 17.4 H Plt Count 249 MPV 12.0 H Immature Gran % 0.6 Neutrophils % 79.5 Lymphocytes % 9.6 Monocytes % 7.3 Eosinophils % 2.7 Basophils % 0.3 Nucleated RBC % 0.0 Absolute Neutrophils 10.30 H Absolute Lymphocytes 1.24 Absolute Monocytes 0.95 H Absolute Eosinophils 0.35 Absolute Basophils 0.04 PT 10.3 INR 1.0 APTT 24.6 Cancelled Sodium Cancelled 136 Potassium Cancelled 4.6 Chloride Cancelled 105 Carbon Dioxide Cancelled 26.2 Anion Gap Cancelled 4.8 BUN Cancelled 20 Creatinine Cancelled 0.4 L Est GFR (CKD-EPI 2020) Cancelled 144.77 Glucose Cancelled 106 Calcium Cancelled 7.8 L Magnesium Cancelled 1.6 Total Bilirubin Cancelled 7.40 H Conjugated Bilirubin Cancelled 5.3 H AST Cancelled 171 H ALT Cancelled 99 H Alkaline Phosphatase Cancelled 892 H Total Protein Cancelled 7.0 Albumin Cancelled 2.8 L Lipase Cancelled 13 Last Vital Signs Temp 37.7 C H 03/18/25 19:06 Pulse 79 03/18/25 19:10 Resp 21 03/18/25 19:10 BP 116/72 03/18/25 19:06 Pulse Ox 97 03/18/25 19:10 Time Spent Time spent with Patient: >75 minutes Time was spent: preparing to see the patient(eg.review tests), obtaining and/or reviewing separately otained hiistory, ordering medications,tests, procedures, referring, communicating with other health landcare officer, indepentently interpreting results, counseling the patient and care coordination
[2025-03-18 21:22] LABS: COVID-19 PCR Negative (Negative); RSV PCR Negative (Negative)
--- NOTE | 2025-03-18 21:23 | W.PC.ACHO ---
Registration Status: REG ER Primary Language: Preferred Language: Serbian ED Information & Data Chief Complaint GenMedical 03/18/25 19:06 Chief Complaint GenMedical 03/18/25 17:32 Triage Note PT states that she is 03/18/25 15:41 concerned that she is jaundice. This has happened several times before according to the PT and she always comes to the ED/ hospital for treatment. Recent Hx of pancreatic cancer, liver damaged. Medical / Surgical History (Last Reviewed 03/18/25 @ 20:13 by Vikas Luke) Kidney stone Calculus of left ureter Anxiety Thrombocytopenia Nuclear age-related cataract, left eye Ingrown nail Osteoporosis Insomnia Hematuria Right hip pain (03/27/17) Hypercholesterolemia Generalized osteoarthrosis Ingrowing toenail (04/14/14) Hematuria Fatigue Ingrown toenail Urinary tract infectious disease (Last Reviewed 03/18/25 @ 20:13 by Vikas Luke) Nuclear age-related cataract, right eye History of cataract surgery History of bladder repair surgery Status post laparoscopic hysterectomy H/O bladder repair surgery S/P laparoscopic hysterectomy Hysterectomy, Laproscopic (~1983) Bladder Surgery (~1999) Most Recent Vital Signs Temperature 36.9 C 03/18/25 20:40 Temperature Source Axillary 03/18/25 20:40 Pulse 79 03/18/25 19:10 Pulse 81 03/18/25 19:10 Respiratory Rate 21 03/18/25 19:10 Respiratory Effort Normal 03/18/25 17:54 Respiratory Depth Normal 03/18/25 17:54 Respiratory Pattern Normal 03/18/25 17:54 Blood Pressure 116/72 03/18/25 19:06 Blood Pressure Mean 79 03/18/25 18:46 Blood Pressure Position Sitting 03/18/25 19:06 Pulse Oximetry 97 03/18/25 19:10 Oxygen Delivery Method Room Air 03/18/25 19:06 Oxygen Flow Rate 0 03/18/25 19:06 Allergies ibuprofen Adverse Reaction (Mild, Verified 03/18/25 15:44) Stomach cramps Active Medications Generic Name Dose Route Start Last Admin Trade Name Freq PRN Reason Stop Dose Admin Iohexol 100 ml 03/18/25 19:15 03/18/25 19:12 Omnipaque 350 Mg/Ml 100 Ml Btl IJ 04/17/25 23:59 75 ml DIRECTED SYDNI Administration Sodium Chloride 50 ml 03/18/25 19:15 03/18/25 19:13 Normal Saline - Diluent 50 Ml Vial IJ 50 ml DIRECTED SYDNI Administration Sodium Chloride 0 ml 03/18/25 19:07 03/18/25 19:13 Normal Saline Flush 10 Ml Syr IVP 10 ml PRN PRN Administration IV IV Catheter Type [Right Peripheral IV Antecubital] IV Catheter Gauge [Right 18 Antecubital] Diagnostics 03/18/25 03/18/25 03/18/25 Range/Units 20:40 18:14 17:50 WBC (4.4-10.8) 10^3/uL RBC (3.93-5.22) 10^6/uL Hgb (11.2-15.7) g/dL Hct (36.0-46.0) % MCV (80-95) fL MCH (27.0-33.0) pg MCHC (32.0-36.0) % RDW (11.7-14.6) % Plt Count (130-400) 10^3/uL MPV (8.0-11.0) fL Immature Gran % % Neutrophils % % Lymphocytes % % Monocytes % % Eosinophils % % Basophils % % Nucleated RBC % (0.0-0.3) % Absolute Neutrophils (1.2-6.7) 10^3/uL Absolute Lymphocytes (1.2-3.4) 10^3/uL Absolute Monocytes (0.1-0.8) 10^3/uL Absolute Eosinophils (0.0-0.7) 10^3/uL Absolute Basophils (0.0-0.2) 10^3/uL PT (9.1-11.1) sec INR (0.9-1.1) APTT Cancelled (20.6-30.2) sec Sodium 136 Cancelled Potassium 4.6 Cancelled Chloride 105 Cancelled Carbon Dioxide 26.2 Cancelled Anion Gap 4.8 Cancelled BUN 20 Cancelled Creatinine 0.4 L Cancelled Est GFR (CKD-EPI 2020) 144.77 Cancelled Glucose 106 Cancelled Calcium 7.8 L Cancelled Magnesium 1.6 Cancelled Total Bilirubin 7.40 H Cancelled Conjugated Bilirubin 5.3 H Cancelled AST 171 H Cancelled ALT 99 H Cancelled Alkaline Phosphatase 892 H Cancelled Total Protein 7.0 Cancelled Albumin 2.8 L Cancelled Lipase 13 Cancelled COVID-19 Source Pending SARS-CoV-2 (PCR) Pending Influenza Type A (PCR) Pending Influenza Type B (PCR) Pending RSV (PCR) Pending 03/18/25 Range/Units 17:50 WBC 12.96 H (4.4-10.8) 10^3/uL RBC 3.85 L (3.93-5.22) 10^6/uL Hgb 11.0 L (11.2-15.7) g/dL Hct 31.9 L (36.0-46.0) % MCV 83 (80-95) fL MCH 28.6 (27.0-33.0) pg MCHC 34.5 (32.0-36.0) % RDW 17.4 H (11.7-14.6) % Plt Count 249 (130-400) 10^3/uL MPV 12.0 H (8.0-11.0) fL Immature Gran % 0.6 % Neutrophils % 79.5 % Lymphocytes % 9.6 % Monocytes % 7.3 % Eosinophils % 2.7 % Basophils % 0.3 % Nucleated RBC % 0.0 (0.0-0.3) % Absolute Neutrophils 10.30 H (1.2-6.7) 10^3/uL Absolute Lymphocytes 1.24 (1.2-3.4) 10^3/uL Absolute Monocytes 0.95 H (0.1-0.8) 10^3/uL Absolute Eosinophils 0.35 (0.0-0.7) 10^3/uL Absolute Basophils 0.04 (0.0-0.2) 10^3/uL PT 10.3 (9.1-11.1) sec INR 1.0 (0.9-1.1) APTT 24.6 (20.6-30.2) sec Sodium Potassium Chloride Carbon Dioxide Anion Gap BUN Creatinine Est GFR (CKD-EPI 2020) Glucose Calcium Magnesium Total Bilirubin Conjugated Bilirubin AST ALT Alkaline Phosphatase Total Protein Albumin Lipase COVID-19 Source SARS-CoV-2 (PCR) Influenza Type A (PCR) Influenza Type B (PCR) RSV (PCR) 03/18/25 20:20 Blood Culture - Pending Blood 03/18/25 20:25 Blood Culture - Pending Blood Intake and Output - 24 Hour Total 03/18/25 15:29 thru 03/18/25 15:41 Weight 58.967 kg Falls Risk Assessment History of Falls No History 03/18/25 17:54 Contributing Factors No Factors 03/18/25 17:54 Ambulatory Aids Uses ambulatory device 03/18/25 17:54 Tubes/Lines W/no contributing factors 03/18/25 17:54 Gait Evaluation No gait disturbance 03/18/25 17:54 Cognition No cognitive impairment 03/18/25 17:54 Fall Total Score 03/18/25 17:54 Level of Risk Moderate Risk 03/18/25 17:54 Problems (Last Reviewed 03/18/25 @ 20:13 by Vikas Luke) 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 Additional Patient Information/Comments: Alert and oriented patient who woke up jaundiced, with a hx of pancreatic cancer. Pt reports last time this happened stent blocked #18 RAC, has not voided yet, needs a UA sent when does. Report Received From: Kenyatta Hines RN @ [phone] 03/18/25
[2025-03-18] MEDS: PIPERACILLIN/TAZO 4.5 GM in Normal Saline 100 ML IVPB (22:46)
[2025-03-19] MEDS: PIPERACILLIN/TAZO 3.375 GM in Normal Saline 50 ML IVPB ×4 (04:11→21:37)
[2025-03-19] MEDS: Normal Saline Flush 10 ML SYR IVP ×5 (04:12→20:39)
[2025-03-19 04:15] VITALS: BP 122/77; PULSE 84; RESP 18; TEMP 36.4; O2SAT 94
[2025-03-19 04:33] LABS: Glucose 100 mg/dL (Negative)
[2025-03-19 04:53] LABS: C & S Indicated? No; RBC 20-50 HPF (0-2)
[2025-03-19 06:26] LABS: HCT 27.4 % (36.0-46.0); HGB 9.5 g/dL (11.2-15.7); MCH 28.3 pg (27.0-33.0); MCHC 34.7 % (32.0-36.0); MCV 82 fL (80-95); MPV 11.6 fL (8.0-11.0); Platelet Count 211 10^3/uL (130-400); RBC 3.36 10^6/uL (3.93-5.22); RDW 17.3 % (11.7-14.6); RDW-SD 50.6 fL; WBC 9.15 10^3/uL (4.4-10.8)
[2025-03-19 06:39] LABS: INR 1.0 (0.9-1.1); Prothrombin Time 10.4 sec (9.1-11.1)
[2025-03-19 06:44] LABS: Magnesium 1.7 mg/dL (1.6-2.6)
[2025-03-19 06:46] LABS: ALT 96 U/L (10-49); AST 168 U/L (<34); Albumin 2.6 g/dL (3.4-5.0); Alkaline Phosphatase 833 U/L (46-116); Anion Gap 3.3 mmol/L (3-11); BUN 17 mg/dL (9-23); Bilirubin, Total 7.10 mg/dL (0.2-1.2); CO2 24.7 mmol/L (20.0-31.0); Calcium 7.8 mg/dL (8.3-10.6); Chloride 109 mmol/L (98-107); Glucose 54 mg/dL (74-106); Potassium 3.4 mmol/L (3.5-5.1); Sodium 137 mmol/L (136-145); Total Protein 6.6 g/dL (5.7-8.2)
[2025-03-19 07:20] VITALS: BP 142/67; PULSE 69; RESP 20; TEMP 36.3
--- NOTE | 2025-03-19 08:00 | DI.MRI_ITS ---
Exam(s) MR ABDOMEN WO EXAM: MR ABDOMEN WO CLINICAL HISTORY: Worsening jaundice with pancreatic cancer TECHNIQUE: Multiplanar multisequence MRI was performed on 1.5 mao unit COMPARISON: MR MR ABDOMEN WO/W from 03/08/2023 CT scan 03/18/2025 FINDINGS: VISUALIZED LUNG BASES: No pleural effusions evident. There is increasing ascites. Again noted is a stent throughout the length of the duodenum extending from the gastric antrum to the 4th part of the duodenum. Some thickening of the duodenal wall and gastric antrum noted. LIVER: No intrahepatic lesions. However, there are dilated intrahepatic ducts evident and associated pneumobilia. CBD measures up to 12 mm. BILIARY: Numerous small calculi are noted in the gallbladder. There is mild distension of the gallbladder but similar to the prior CT scan. CBD dilated up to 12 mm. PANCREAS: Although the main pancreatic duct is not dilated there multiple dilated side branches throughout the pancreas with multiple cystic appearing lesions measuring up to 11 millimeters in the body. SPLEEN: Splenic infarct again noted. ADRENALS: There are no significant adrenal masses. KIDNEYS: Benign cyst in the right kidney is again noted, unchanged. No solid renal masses. No hydronephrosis. However, please note that recent CT scan reveals a right ureteral calculus which is now descended into the pelvis to the level of the iliac vessels. This is not able to be seen on MRI. ABDOMINAL AORTA: Not enlarged and there is no significant para-aortic adenopathy. ANTERIOR ABDOMINAL WALL/GI: There is no evidence of significant anterior abdominal wall hernia in the field of view of this study.Is no evidence of obvious bowel obstruction. OSSEOUS: There are no lytic osseous lesions in the field of view of this study. IMPRESSION: 1. There is significant ascites, similar to CT scan of 2 days ago. 2. CBD stent again noted with associated pneumobilia and unchanged intra and extrahepatic biliary duct dilatation. The CBD measures up to 12 mm size. 3. Layering signal abnormality in the gallbladder either multiple small calculi versus sludge. The gallbladder is mildly distended, similar to previous CT scan. 4. Multiple dilated side branches throughout the pancreas with multiple cystic appearing lesions measuring to 11 mm. DATA REPOSITORY:
--- NOTE | 2025-03-19 08:03 | INITIAL_ITS ---
Date of service: 03/19/25 Time of Service: 08:18 Care Management Initial Assmt Initial Assessment Reason for Hospitalization: Pancreatic cancer, worsening jaundice Functional Status/Living Situation Patient Presentation: Tina was sitting up on the edge of her bed and awake when CM met with her. Tina was admitted 02/26/25 for hypoglycemia which she was medically treated and discharged 02/28/25. Tina presented to the ED yesterday afternoon with the chief complaint of jaundice. Tina reports she was able to see her PCP in between admissions. Today, Tina reports that she is feeling better. Tina resides in [place] with her , . She has two adult sons who serve as strong supports; both recently were able to visit. Tina shares that one of her sons owns a condo in [place], [place]. Tina shares she plans to visit this condo some day. Tina has a long-term care insurance, which she obtained in her thirties. The policy currently covers three caregivers, who provide assistance on Sunday, Sunday, and Sunday from 10:30 a.m. to 2:30 p.m. The caregivers help with household tasks and support Tina in taking walks outside. Though she reports they have been subpar lately. 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 She stated that they are financially comfortable and have [employer] insurance through her ’s service. At home, Tina uses handrails and furniture for stability. Palliative consult placed. CM will continue to follow. Town of Residence: [place] Resides with: Spouse Caregiver/Guardian: Paid caregiver Sunday, Sunday, and Sunday from 10:30-2:30 Natural Supports: and two sons are very supportive; one son lives near [place] and the other in [place]. Employment Status: Retired Instrumental Activities of Daily Living (ADLs): Requires support Activities/Hobbies/SocialSupport: Tina is very active, both physically and socially. Medications Medication Management: No Issues/Barriers identified Physical Functioning/Mobility Assistive Device: Brace for foot drop, has cane and walker but primarily uses the hand rails insid e her home Advance Directives Advance Directives: Do you have an Advance Directive: Y , 12:35 AD On File at [facility]: Y 05/28/24, 12:35 Date Asked 12/09/24 01/13/25, 11:27 AD Date Reviewed 02/26/25 02/26/25, 11:13 COLST On File at [facility] COLST Date Scanned Code Status Resuscitation Status DNR/DNI Portal Pt does not currently have a portal and education provided: Yes Insurance Coverage/Financial Issues Insurance: [facility] - [id number] Care Team Visit Care Team Role Provider Type Caro Bryan APRN MD [facility] STAFF PHYSICIAN Sarah Weldon MD, [place] Primary Care Provider , [facility] Magdalena Talbert RDN, [facility] Other Providers CASTINGS DRAFTER Billy Holm RDN Other Providers CASTINGS DRAFTER Cosme Gao MD Emergency Provider [facility] STAFF PHYSICIAN Vikas Luke Admit Provider NON-[facility] STAFF PHYSICIAN Attending Provider Discharge Potential Discharge Needs: PCP F/U Appt Anticipated Barriers to Discharge: None Identified Patient/Family Education Needs: Review discharge instructions, discuss Ask Me Three Transportation: Private vehicle Plan: Anticipate Tina will return home once medically cleared. Her will drive her home via private vehicle. She will follow up with her PCP and discharge plan of care. CM will continue to follow. Social Determinants of Health Screening Social Determinants of health last assessed in clinic: 03/19/25 Will the Patient Participate in the Screening?: Yes Do you worry about having a steady place to live?: no Problems where you live: no known problems In the past 12 months, have you had to go without electric, gas, oil or water in your home?: no 1. Within the past 12 months, we worried whether our food would run out before we got money to buy more.: Never true 2. Within the past 12 months, the food we bought just didn't last and we didn't have money to get more.: Never true Has lack of transportation kept you from medical appointments or from doing things needed for daily living?: no Has anyone in your life made you feel unsafe or unsupported?: no How hard is it for you to pay for the very basics like food, housing, medical care, and heating? 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) Advance care planning (Acute) Abdominal ascites (Chronic) Splenic infarct (Acute) Abdominal pain (Acute) Diabetes mellitus (Chronic) Nausea & vomiting (Acute) Impaired functional mobility, balance, gait, and endurance (Acute) Peripheral neuropathy (Acute) Diabetic amyotrophy (Acute) Peroneal neuropathy (Acute) Heart murmur (Acute) Balance problem (Acute) Foot drop, left (Acute) Low back pain potentially associated with radiculopathy (Acute) Hip pain (Acute) Diabetes mellitus with neuropathy (Chronic) Nail dystrophy (Acute) Memory changes (Acute) Mass, brain (Acute) MRI 04/17/23 3mm small enhancing focus ? mets Adenocarcinoma of pancreas (Acute) bx 03/29 at [facility] Hypertension (Chronic) Acute on chronic anemia (Acute) Liver failure, acute (Acute) Hyperbilirubinemia (Acute) Jaundice (Acute) Diverticulosis of colon without diverticulitis (Chronic) Lichen planus (Chronic) mouth OAB (overactive bladder) (Acute) Medical History Kidney stone Calculus of left ureter Anxiety chronic benzodiazipine use 03/27/17 FLOR-7 SCORE=7 07/02/17 FLOR-7 SCORE=13 Thrombocytopenia Nuclear age-related cataract, left eye Ingrown nail Osteoporosis Insomnia Hematuria Neg work-up 2013. UA not meeting RBC in years since for repeat Right hip pain (03/27/17) Hypercholesterolemia Generalized osteoarthrosis low back pain; xray + DJD Ingrowing toenail (04/14/14) Hematuria unspeficified; asymptomatic; neg W/U Fatigue 06/26/12 Ingrown toenail 04/14/14 Urinary tract infectious disease recurrent Surgical History Nuclear age-related cataract, right eye History of cataract surgery History of bladder repair surgery Status post laparoscopic hysterectomy H/O bladder repair surgery sling S/P laparoscopic hysterectomy 05/07/83 partial, dysmenorrhea Hysterectomy, Laproscopic (~1983) partial; dysmenorrhea Bladder Surgery (~1999) SLING Family History Mother , age 92 Dementia Father , age 78 Cancer Brother Asthma Brother ALS (amyotrophic lateral sclerosis) Brother No problems noted. Maternal Grandfather , age 50 Black lung disease Paternal Grandfather , age 65 Black lung disease Maternal Grandmother , age 80 No problems noted. Paternal Grandmother , age 84 No problems noted. Son No problems noted. Son No problems noted. Social History Smoking/Tobacco Use Status: Former Tobacco Use tobacco type: cigarettes Quit Date: 05/07/97 Tobacco: How many years used: 15 Second Hand Exposure: Yes Smoking risk assessment performed?: Yes Alcohol Intake: current Alcohol Intake frequency: holidays/special occasions only Drug use: Never Substance use type: does not use Adopted: No Household members: spouse Housing: house Number of Children: 2 number of grandchildren: 4 Communication Needs: None Education Level: college Details: A[employer]S. 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 Pets and animals: No Sexually active: No Do you think of yourself as: straight/heterosexual Current gender identity: female What is your relationship status?: How often do you talk on the phone with friends or family?: three or more times per week How often do you get together with friends or relatives?: decline to answer How often do you attend taoism or yarsani services?: 4 or more times per year Do you belong to any clubs or organized social groups?: yes Panel score (0-1 are the most socially isolated patients): 4 What type of physical activity do you participate in: walking, aerobic, bicycling and swimming Duration: 30-45 minutes/day Frequency: 3-4 times per week Lorraine/Gnosticist: Gnosticist Special lorraine needs: No Seatbelt use: always Helmet use: Yes Helmet use: always Drive intox or ride w/intox rental car ferry driver: No Firearms in home: Yes Do you feel safe at home: Yes Do you feel safe in your relationship?: Yes Victim of physical abuse: No Victim of emotional abuse: No Victim of sexual abuse: No Would you like helpful sources: No Additional Social history: lives with of 59 years Raman in [place] Readmission Within the Past 30 Days Yes or No: Yes Date of First Admission Date of 1st Admission: 02/26/25 Date of this Admission Date of Admission: 03/18/25 This admission was: Through ED Office Visit Since 1st Admission Have you seen your PCP in the office since discharge?: Yes Date of PCP Appointment: 03/12 Had an appointment Been Scheduled?: Yes Speicalist Appointments Have you seen any other specialist since your 1st Admission?: Yes Date you saw the Specialist: 03/12 Specialist Seen: Loly Mantilla Interview patient and/or Family Difficulty reaching your doctor or getting an office appt?: No Have you had trouble purchasing/ or taking medication?: No Have you had trouble with getting meals at home?: No Did you feel ready for discharge when you left the last time: Yes Were services received that you thought were set up on disch: Yes Did you call your physician beore you came to the ED?: No Did your physician tell you to come in?: No If the patient had a VNA ordered Did the patient have a VNA order?: No ED visits How many ED visits in the past 12 months: 6 Assessment for Readmission Summary of readmission circumstances, based upon interviews: Jaundice advancing with pancreatic cancer status post stenting.
[2025-03-19] MEDS: Metoclopramide 10 MG TAB 5 MG PO ×3 (08:26→21:37)
[2025-03-19] MEDS: clonazePAM 0.5 MG TAB PO ×2 (08:58→20:39)
[2025-03-19] MEDS: Celecoxib 100 MG CAP PO ×2 (08:58→20:39)
[2025-03-19] MEDS: Pregabalin 25 MG CAP PO ×2 (08:58→20:39)
[2025-03-19] MEDS: Creon, Lipase 24,000 CAPCR 1 CAP PO ×2 (09:00→15:31)
[2025-03-19] MEDS: QUEtiapine 50 MG TAB PO ×2 (09:00→20:39)
[2025-03-19] MEDS: Mirabegron 50 MG TABCR PO (09:00)
[2025-03-19] MEDS: Ondansetron O.D.T. 4 MG TABEF 8 MG PO (09:02)
[2025-03-19] MEDS: Enoxaparin 40 MG/0.4 ML SYR SC (09:04)
--- NOTE | 2025-03-19 09:53 | W.PM.PROGNOT ---
Date of Service Date of service: 03/19/25 Time of Service: 09:53 Assessment and Plan Assessment and plan (1) Malignant neoplasm of pancreas metastatic to intra-abdominal lymph node: Status: Chronic Assessment and plan: Metastatic adenocarcinoma of the pancreas 03/16/25 Stent placement for malignant biliary obstruction Hospice referral placed by Dr. Montoya on 03/12/2025 previous stents placed for biliary obstruction and appears to have progressive biliary obstruction presently with increasing total bilirubin and jaundice, no abdominal pain initially but now has a slight positive sierra's sign She is eating fairly about 25 % of her meals Denies fever or chills but feeling cold -Increased WBC on admission- She was started on Zosyn -[place]'s criteria are positive and Grade II on admission for : systemic infalmation (WBC 12.93), cholestasis ( jaudice and elevated LFT's and bilirubin) and imaging ( biliary tree dilation at 11-12 mm) and grading criteria- thus warranting the continuation of antibiotics in the setting of cholangitis and probable stent replacement in AM at [facility] As per previous provider notes, [facility] specialist did recommend MRCP in the morning with follow-up call as to plan of care. ABD MRI/MRCP impression: 1. Moderate ascites. 2. Wall stent distal common bile duct with associated pneumobilia. Stable intra and extrahepatic biliary ductal dilatation with the common bile duct up to 12 mm. 3. Layering signal at the gallbladder consistent with small stones or sludge. Gallbladder mildly distended similar to previous CT. 4. Multiple apparent dilated side branches throughout the pancreas with multiple cystic appearing lesions largest 11 mm at the body of the pancreas.Reimaging every 2 years for 4 years is recommended. (Reference: Fatou, 2017) (2) Acute cholangitis: Status: Acute Assessment and plan: As per criteria above most likely in the setiing of progression of the patient's neoplasm Discussed with Dr Francesca BYRD at [facility] to call in AM to put patient in if they have an opening- Patient wants the replacment of her stent and [facility] called back and confirmed plan -Mateo PALMA from transfer center who spoke to Dr. Cassidy -NPO, stop LMWH- slow IVF -plan for round trip for ERCP and stent placement, risk of pancreatitis, bleeding and abdominal pain discussed with patient. Patient mentioned that her spouse - as a LE that is impaire and prevents him from driving and that she does not want to go home as she would be unable to go to outpatient (3) Jaundice: Start date: 03/18/25 Status: Acute Assessment and plan: Still worsening with progressive pancreatic cancer and probable increased obstruction - as per point 1 and 2 (4) Abdominal ascites: Status: Chronic Assessment and plan: Ogoing as per imaging, abd slightly larger, guarding now - with slightly positive Sierra's signs( holds her breath with RUQ deep palpation and tenses) Ongoign progression with disease. (5) Diabetes mellitus: Status: Chronic Assessment and plan: POCT glucose and sliding scale coverage AC - hold SSI while NPO - none given goal glucose 140-180 (6) Diabetes mellitus with neuropathy: Status: Chronic Assessment and plan: on home medical therapy with pregabalin. (7) Hypertension: Status: Chronic Assessment and plan: Adequate for age, not medicated. Monitor while hospitalized. Discussed with Dr. Veliz Subjective Subjective Patient reports: no new complaints, tolerating liquids well, tolerating a regular diet and voiding w/o difficulty; denies diarrhea, nausea, vomiting, shortness of breath or fever Exam Narrative Exam Narrative: 80 year old female appearing fatigue, keeps her eyes closed at the begining of the interaction, but was able to follow command and open them, icteric sclera, noninjected, skin is jaundiced, dry mucous membranes , A&O X4, no focal weakness, heart is regular, clear lungs bilaterally with decreased left base , abdomen soft, nontender, nondistended, no CVA tenderness, moves all 4 ext. Objective Last Vital Signs Temp 36.3 C L 03/19/25 07:20 Pulse 69 03/19/25 07:20 Resp 20 03/19/25 07:20 BP 142/67 H 03/19/25 07:20 Pulse Ox 94 03/19/25 04:15 Laboratory Results - last 24 hr 03/18/25 03/18/25 03/18/25 17:50 17:50 18:14 WBC 12.96 H RBC 3.85 L Hgb 11.0 L Hct 31.9 L MCV 83 MCH 28.6 MCHC 34.5 RDW 17.4 H Plt Count 249 MPV 12.0 H Immature Gran % 0.6 Neutrophils % 79.5 Lymphocytes % 9.6 Monocytes % 7.3 Eosinophils % 2.7 Basophils % 0.3 Nucleated RBC % 0.0 Absolute Neutrophils 10.30 H Absolute Lymphocytes 1.24 Absolute Monocytes 0.95 H Absolute Eosinophils 0.35 Absolute Basophils 0.04 PT 10.3 INR 1.0 APTT 24.6 Cancelled Sodium Cancelled 136 Potassium Cancelled 4.6 Chloride Cancelled 105 Carbon Dioxide Cancelled 26.2 Anion Gap Cancelled 4.8 BUN Cancelled 20 Creatinine Cancelled 0.4 L Est GFR (CKD-EPI 2020) Cancelled 144.77 Glucose Cancelled 106 Calcium Cancelled 7.8 L Magnesium Cancelled 1.6 Total Bilirubin Cancelled 7.40 H Conjugated Bilirubin Cancelled 5.3 H AST Cancelled 171 H ALT Cancelled 99 H Alkaline Phosphatase Cancelled 892 H Total Protein Cancelled 7.0 Albumin Cancelled 2.8 L Lipase Cancelled 13 Urine Color Urine Clarity Urine pH Ur Specific [place] Urine Protein Urine Ketones Urine Blood Urine Nitrite Urine Bilirubin Urine Urobilinogen Ur Leukocyte Esterase Urine RBC Urine WBC Ur Epithelial Cells Urine Crystals Urine Bacteria Urine Casts Urine Mucus Ur Culture Indicated? Urine Glucose COVID-19 Source SARS-CoV-2 (PCR) Influenza Type A (PCR) Influenza Type B (PCR) RSV (PCR) 03/18/25 03/19/25 03/19/25 20:40 04:10 06:12 WBC 9.15 RBC 3.36 L Hgb 9.5 L Hct 27.4 L MCV 82 MCH 28.3 MCHC 34.7 RDW 17.3 H Plt Count 211 MPV 11.6 H Immature Gran % Neutrophils % Lymphocytes % Monocytes % Eosinophils % Basophils % Nucleated RBC % Absolute Neutrophils Absolute Lymphocytes Absolute Monocytes Absolute Eosinophils Absolute Basophils PT 10.4 INR 1.0 APTT Sodium 137 Potassium 3.4 L D Chloride 109 H Carbon Dioxide 24.7 Anion Gap 3.3 BUN 17 Creatinine 0.5 L Est GFR (CKD-EPI 2020) 110.68 Glucose 54 L Calcium 7.8 L Magnesium 1.7 Total Bilirubin 7.10 H Conjugated Bilirubin AST 168 H ALT 96 H Alkaline Phosphatase 833 H Total Protein 6.6 Albumin 2.6 L Lipase Urine Color Yellow Urine Clarity Clear Urine pH 5.5 Ur Specific [place] 1.015 Urine Protein 30 H Urine Ketones Negative Urine Blood Large H Urine Nitrite Negative Urine Bilirubin Large H Urine Urobilinogen 0.2 Ur Leukocyte Esterase Negative Urine RBC 20-50 H Urine WBC 5-10 Ur Epithelial Cells Few Urine Crystals Negative Urine Bacteria Few Urine Casts Negative Urine Mucus Negative Ur Culture Indicated? No Urine Glucose 100 H COVID-19 Source Nasopharynx SARS-CoV-2 (PCR) Negative Influenza Type A (PCR) Negative Influenza Type B (PCR) Negative RSV (PCR) Negative Time Spent with Patient Time Spent with Patient: >50 minutes Time was spent: preparing to see the patient(eg.review tests), obtaining and/or reviewing separately [facility], ordering medications,tests, procedures, referring, communicating with other health respiratory care program director, indepentently interpreting results, counseling the patient, care coordination and other
[2025-03-19 11:31] VITALS: BP 141/70; PULSE 65; RESP 20; TEMP 36; O2SAT 95
--- NOTE | 2025-03-19 14:10 | CHAPLAIN ---
I had a short visit with Shara as she was getting ready to take a nap. I explained my role and offered support.
--- NOTE | 2025-03-19 14:48 | PHA.REVIEW2 ---
Pharmacy Admission Review Admission Clinical Review Admission Pharmacy Review: Jaundice (Acute) ibuprofen Adverse Reaction (Mild, Verified 03/18/25 15:44) Stomach cramps Resuscitation Status DNR/DNI Height 5 ft 4 in Weight 60.6 kg Pharmacy Admission Review Renal Dosing Renal Dosing: BUN 17 mg/dL (9-23) 03/19/25 06:12 Creatinine 0.5 mg/dL (0.55-1.02) L 03/19/25 06:12 Medications needing adjustments: Reviewed (Crcl=42; no adjustments at this time) Anticoagulation Anticoagulation: Hgb 9.5 g/dL (11.2-15.7) L 03/19/25 06:12 Hct 27.4 % (36.0-46.0) L 03/19/25 06:12 Plt Count 211 10^3/uL (130-400) 03/19/25 06:12 INR 1.0 (0.9-1.1) 03/19/25 06:12 Creatinine 0.5 mg/dL (0.55-1.02) L 03/19/25 06:12 DVT Prophylaxis: Reviewed Medications: Enoxaparin Opiate Usage Evaluate Pain Scale/Pains Meds: N/A Relevant Labs Relevant Labs: Sodium 137 mmol/L (136-145) 03/19/25 06:12 Potassium 3.4 mmol/L (3.5-5.1) L D 03/19/25 06:12 Chloride 109 mmol/L (98-107) H 03/19/25 06:12 Magnesium 1.7 mg/dL (1.6-2.6) 03/19/25 06:12 Electrolytes, C-Reactive P, ESR: Reviewed (Tbili=7.1; alk ilcf=864; K+=3.4 (recommended to replete)) DM Control DM Control: Reviewed (am glucose=54; reviewed home meds that can cause hypoglycemia. Pt takes lantus at home which may have caused hypoglycemia if she took yesterday before coming in. ) Cardiac Review BP, HR, EF%: Reviewed (nm=105/70; hr=65) QTc Review QTc: Not Reviewed (no recent ekg) IV to PO Switch IV Medications: Reviewed Home Meds Home Med List reviewed: Reviewed (all home meds reordered except lantus) Current Meds Current Medication Order Review: Reviewed Pharmacy Antibiotic Review Pharmacy Antibiotic Activity: Reviewed, no change (on pip/tazo; unclear indication? possibly treating SBP-blood cultures are pending. )
[2025-03-19 15:29] VITALS: BP 120/62; PULSE 72; RESP 17; TEMP 36.7; O2SAT 97
--- NOTE | 2025-03-19 17:16 | DI.VRAD_ITS ---
PROCEDURE INFORMATION: Exam: MR Abdomen Without Contrast Exam date and time: 03/19/2025 2:01 PM Age: 80 years old Clinical indication: Other: Worsening jaundice with pancreatic cancer. Prior surgery; Surgery date: 6+ months; Surgery type: Cbd stent + duodenal stent x 2 yrs ago when she was dx with pancreatic CA. TECHNIQUE: Imaging protocol: Magnetic resonance imaging of the abdomen without contrast. COMPARISON: CT ABDOMEN PELVIS W 03/18/2025 6:52 PM FINDINGS: Liver: No mass. Gallbladder and biliary ducts: Wall stent distal common bile duct with associated pneumobilia. Stable intra and extrahepatic biliary ductal dilatation with the common bile duct up to 12 mm. Layering signal at the gallbladder consistent with small stones or sludge. Gallbladder mildly distended similar to previous CT. Pancreas: Main pancreatic duct nondilated. Multiple apparent dilated side branches throughout the pancreas with multiple cystic appearing lesions largest 11 mm at the body of the pancreas. Spleen: Stable splenic infarct. Adrenal glands: Unremarkable. No mass. Kidneys: Stable cyst right kidney. No hydronephrosis. Stomach and bowel: Wall stent antrum of the stomach to 3rd portion of the duodenum. Intraperitoneal space: Moderate ascites. Vasculature: No abdominal aortic aneurysm. Lymph nodes: No enlarged nodes. Bones/joints: Unremarkable. No suspicious lesions. Soft tissues: Unremarkable. IMPRESSION: 1. Moderate ascites. 2. Wall stent distal common bile duct with associated pneumobilia. Stable intra and extrahepatic biliary ductal dilatation with the common bile duct up to 12 mm. 3. Layering signal at the gallbladder consistent with small stones or sludge. Gallbladder mildly distended similar to previous CT. 4. Multiple apparent dilated side branches throughout the pancreas with multiple cystic appearing lesions largest 11 mm at the body of the pancreas.Reimaging every 2 years for 4 years is recommended. (Reference: Fatou, 2017) REFERENCES: Fatou LOAIZA, et al. Management of Incidental Pancreatic Cysts: A White Paper of the ACR Incidental Findings Committee. J Am Hans Radiol. 2017;14(7):911-923. Dictated and Authenticated by: Vikas Bellamy MD. Orderin Marly Bean MD
[2025-03-19 20:09] VITALS: BP 123/55; PULSE 71; RESP 16; TEMP 36; O2SAT 95
[2025-03-19] MEDS: Lactated Ringers 1,000 ML 75 ML IV (23:14)
[2025-03-19 23:34] VITALS: BP 123/46; PULSE 70; RESP 16; TEMP 36.6; O2SAT 95
[2025-03-20] MEDS: PIPERACILLIN/TAZO 3.375 GM in Normal Saline 50 ML IVPB ×4 (03:51→22:54)
[2025-03-20 03:54] VITALS: BP 118/59; PULSE 65; RESP 17; TEMP 36.3; O2SAT 96
[2025-03-20 05:59] LABS: HCT 38.5 % (36.0-46.0); MCH 30.9 pg (27.0-33.0); MCHC 34.0 % (32.0-36.0); MPV 10.1 fL (8.0-11.0); Platelet Count 197 10^3/uL (130-400); RBC 4.24 10^6/uL (3.93-5.22); RDW 12.8 % (11.7-14.6); RDW-SD 42.3 fL; WBC 6.17 10^3/uL (4.4-10.8)
[2025-03-20 06:01] LABS: HGB 13.1 g/dL (11.2-15.7); MCV 91 fL (80-95)
[2025-03-20 06:02] LABS: Magnesium 1.9 mg/dL (1.6-2.6)
[2025-03-20 06:06] LABS: ALT 13 U/L (10-49); AST 13 U/L (<34); Albumin 3.9 g/dL (3.4-5.0); Alkaline Phosphatase 66 U/L (46-116); Anion Gap 8.9 mmol/L (3-11); BUN 13 mg/dL (9-23); Bilirubin, Total 0.30 mg/dL (0.2-1.2); CO2 25.1 mmol/L (20.0-31.0); Calcium 8.8 mg/dL (8.3-10.6); Chloride 108 mmol/L (98-107); Glucose 92 mg/dL (74-106); Potassium 4.2 mmol/L (3.5-5.1); Sodium 142 mmol/L (136-145); Total Protein 6.3 g/dL (5.7-8.2)
[2025-03-20 07:33] VITALS: BP 135/58; PULSE 84; RESP 16; TEMP 36.7; O2SAT 95
--- NOTE | 2025-03-20 08:15 | TELEFU_ITS ---
Date of service: 03/19/25 Time of Service: 15:30 Nutrition Note NOTE: Visited with patient at bedside - finishing a late lunch as she was down at imaging when I stopped by earlier. She ate most of her lunch and asked for a custard after our conversation. Delia has glucose fluctuations related to a long history of diabetes as well as current neoplasm of pancreas. She lives at home with Bruce, who does a lot of caring for her and the kick plate installer - she states she cannot stand long due to left leg pain/weakness. Bruce also checks Delia's glucose - once in morning and once in the evening. Her A1C went down from 10.1% last November to currently 7.4%. - Delia confirms frequ ent lows and drop in A1C could be a result of this. When asked if she gets below 55 she informed it could be 3 times in a day, depending on things. Her son orders them dinners and other meals from meal deliver service - she states she is not a grazer and tends to eat 3 meals per day. Denies nausea/vomiting. States she has not has a BM in 2-3 days as of our conversation last evening (03/19). Pt confirms a hx of weight loss, stating she has lost about 34lbs but couldn't quantify a time frame in which this happened. Her weight history looks pretty stable however. fasting glucose down to 54 yesterday (03/09) improved to 92 this morning. fingersticks since yesterday morning mostly in the lower 100's. She does take insulin at home 30u glargine BID and 4u aspart AC (MDD of 12 units). Pt orderd for just correction insulin only this admission Estimated energy needs: 1530-1830kcals (25-30kcals per kg), 73g protein (1.2g/kg), 1530-1830mL fluid (1mL per require kcal) Nutrition Dx: frequent instances of hypoglycemia related to hx of diabetes and pancreatic cancer, as evidenced by glucose of 54 yesterday morning and pt's own reporting of multiple instances per week. Nutrition intervention: Delia eating pretty well - denies the need for ONS. Will keep diet liberalized and offer her preferences. With delia's code status, multiple health conditions,age and experiences with hypoglycemia, would recommend a more relaxed A1C target of 8.0% -It may be worth considering omitting mealtime insulin, continuing inslulin glargine at at 20u BID (titrating q3 days based on fasting glucose) and adding an oral like empaglaflozin to reduce the risk of low's/. Will continue to monitor Time Spent in Nutritional Counseling and Treatment: 15 minutes
--- NOTE | 2025-03-20 08:38 | PCNE_ITS ---
Date of service: 03/19/25 Time of Service: 16:00 History of Present Illness History of Present Illness Chief Complaint: Jaundice Narrative: Tina is a 80 yo female with metastatic pancreatic cancer. Her disease progressed despite treatment. Both her oncologist, Dr Raza, and I both recommended Hospice. She had a Hospice consult, but was uncertain if she needed Hospice. She has housekeeping coming to her home 3 times weekly (paid for by [employer]). Her is very attentive, but has his multiple comorbidties of his own. Sons help but are not living nearby. She has no pain, never has. She has lost substantial weight and often does not feel like eating, but says she knows she should to stay healthy. She came to the ER at the urging of her sons due to jaundice. She slept well overnight despite being in the hospital. Her CT Scan did not show obstruction of her bile ducts, but an MRCP was recommended. 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 Results of the MR and discussion with Interventional Radiology by Caro Bryan - felt this could be pursued outpt because she had mild increase in WBC, no fever, stable vitals. The plan was to be seen soon I did speak to Tina about hospice. She doesn't know what they could do to help her. Luckily she has no pain, but probable will in the future. She has lost considerable weight, has uncontrolled DM (her brings me his charting of BS, etc but admits they forget to check sugars regularly - hence no insulin). They are doing the best they can and need professional oversight of her medical problems in the home. I am hoping they choose Hospice. Tina lacks the real purpose of hospice despite Dr Raza, hospice nurse who did the consult and myself explaining the benefits. Her prognostic awareness is very low. I don't think she understands that with the progression of her disease and inability of further cancer treatments she will have further progression leading to . She is a DNR, but still sees as far out in the future I am happy to f/u outpt as I am also Tina's PCP. A family meeting may be helpful. The family is gathering around Thanksgiving for a green party. I have spent more than 50% of time in counseling with this patient. Addendum: Tina did go to [facility] for intervention. 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 (Chronic) Advance care planning (Acute) Abdominal ascites (Chronic) Splenic infarct (Acute) Abdominal pain (Acute) Diabetes mellitus (Chronic) Nausea & vomiting (Acute) Impaired functional mobility, balance, gait, and endurance (Acute) Peripheral neuropathy (Acute) Diabetic amyotrophy (Acute) Peroneal neuropathy (Acute) Heart murmur (Acute) Balance problem (Acute) Foot drop, left (Acute) Low back pain potentially associated with radiculopathy (Acute) Hip pain (Acute) Diabetes mellitus with neuropathy (Chronic) Nail dystrophy (Acute) Memory changes (Acute) Mass, brain (Acute) MRI 04/17/23 3mm small enhancing focus ? mets Adenocarcinoma of pancreas (Acute) bx 03/29 at [facility] Hypertension (Chronic) Acute on chronic anemia (Acute) Liver failure, acute (Acute) Hyperbilirubinemia (Acute) Jaundice (Acute) OAB (overactive bladder) (Acute) Lichen planus (Chronic) mouth Diverticulosis of colon without diverticulitis (Chronic) Medical History Kidney stone Calculus of left ureter Anxiety chronic benzodiazipine use 03/27/17 FLOR-7 SCORE=7 07/02/17 FLOR-7 SCORE=13 Thrombocytopenia Nuclear age-related cataract, left eye Ingrown nail Osteoporosis Insomnia Hematuria Neg work-up 2013. UA not meeting RBC in years since for repeat Right hip pain (03/27/17) Hypercholesterolemia Generalized osteoarthrosis low back pain; xray + DJD Ingrowing toenail (04/14/14) Hematuria unspeficified; asymptomatic; neg W/U Fatigue 06/26/12 Ingrown toenail 04/14/14 Urinary tract infectious disease recurrent Surgical History Nuclear age-related cataract, right eye History of cataract surgery History of bladder repair surgery Status post laparoscopic hysterectomy H/O bladder repair surgery sling S/P laparoscopic hysterectomy 05/07/83 partial, dysmenorrhea Hysterectomy, Laproscopic (~1983) partial; dysmenorrhea Bladder Surgery (~1999) SLING Family History Mother , age 92 Dementia Father , age 78 Cancer Brother Asthma Brother ALS (amyotrophic lateral sclerosis) Brother No problems noted. Maternal Grandfather , age 50 Black lung disease Paternal Grandfather , age 65 Black lung disease Maternal Grandmother , age 80 No problems noted. Paternal Grandmother , age 84 No problems noted. Son No problems noted. Son No problems noted. Social History Smoking/Tobacco Use Status: Former Tobacco Use tobacco type: cigarettes Quit Date: 05/07/97 Tobacco: How many years used: 15 Second Hand Exposure: Yes Smoking risk assessment performed?: Yes Alcohol Intake: current Alcohol Intake frequency: holidays/special occasions only Drug use: Never Substance use type: does not use Adopted: No Household members: spouse Housing: house Number of Children: 2 number of grandchildren: 4 Communication Needs: None Education Level: college Details: A.S. 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 Pets and animals: No Sexually active: No Do you think of yourself as: straight/heterosexual Current gender identity: female What is your relationship status?: How often do you talk on the phone with friends or family?: three or more times per week How often do you get together with friends or relatives?: decline to answer How often do you attend adventist or rastafarian services?: 4 or more times per year Do you belong to any clubs or organized social groups?: yes Panel score (0-1 are the most socially isolated patients): 4 What type of physical activity do you participate in: walking, aerobic, bicycling and swimming Duration: 30-45 minutes/day Frequency: 3-4 times per week Lorraine/Muslim: Restoration Special lorraine needs: No Seatbelt use: always Helmet use: Yes Helmet use: always Drive intox or ride w/intox furniture mover driver: No Firearms in home: Yes Do you feel safe at home: Yes Do you feel safe in your relationship?: Yes Victim of physical abuse: No Victim of emotional abuse: No Victim of sexual abuse: No Would you like helpful sources: No Additional Social history: lives with of 59 years [place] in [place] Exam Narrative Exam Narrative: Tina has a yellowish tint to skin. She is her usual talkative self. Sclera - yellow; Heart regular with SM 2/6 LLSB, Lungs - poor inspiration. Smiles and speaks in complete paragraphs Results Last Vital Signs Temp 98.1 F 03/20/25 07:33 Pulse 84 03/20/25 07:33 Resp 16 03/20/25 07:33 BP 135/58 L 03/20/25 07:33 Pulse Ox 95 03/20/25 07:33 MRI Abdomen MPRESSION: 1. There is significant ascites, similar to CT scan of 2 days ago. 2. CBD stent again noted with associated pneumobilia and unchanged intra and extrahepatic biliary duct dilatation. The CBD measures up to 12 mm size. 3. Layering signal abnormality in the gallbladder either multiple small calculi versus sludge. The gallbladder is mildly distended, similar to previous CT scan. 4. Multiple dilated side branches throughout the pancreas with multiple cystic appearing lesions measuring to 11 mm. Labs 03/20/25 05:19 03/20/25 05:19 Labs: Laboratory Results - last 24 hr 03/20/25 05:19 WBC 6.17 RBC 4.24 Hgb 13.1 D Hct 38.5 MCV 91 D MCH 30.9 MCHC 34.0 RDW 12.8 Plt Count 197 MPV 10.1 Sodium 142 Potassium 4.2 Chloride 108 H Carbon Dioxide 25.1 Anion Gap 8.9 BUN 13 Creatinine 0.8 Est GFR (CKD-EPI 2020) 71.93 Glucose 92 Calcium 8.8 Magnesium 1.9 Total Bilirubin 0.30 AST 13 ALT 13 Alkaline Phosphatase 66 Total Protein 6.3 Albumin 3.9 Time Spent Time Spent with Patient Time Spent(min): 78
--- NOTE | 2025-03-20 08:39 | DSE_ITS ---
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: Status: Chronic (2) Acute cholangitis: Status: Acute (3) Jaundice: Status: Acute (4) Abdominal ascites: Status: Chronic (5) Diabetes mellitus: Status: Chronic (6) Diabetes mellitus with neuropathy: Status: Chronic (7) Hypertension: Status: Chronic Discharge Plan Disposition Patient Disposition: Transfer-Acute Inpatient Care Specific Acute Inpt Facility: [facility] Condition: Fair Discharge Details Reason For Visit: Pancreatic Cancer, Worsening Jaundice Admit Date/Time: 03/18/25 20:24 Admit Provider: Vikas Luke Attending Provider: Vikas Luke Primary Care Provider: Sarah Weldon [facility] Hospital Course Hospital Course: Tina Juarez is an 80 year old woman presenting with jaundice in the setting of pancreatic cancer. She has biliary and duodenal stents and is [place] [facility]. She currently has vital signs withi n normal limits and her morning labs show no leukocytosis. Coag panel on March 19 without elevation in INR. At this time she will be transported to [facility] [place] same-[place] procedure with anticipated return later in the day. She is safe for transport at this time. Home Meds and New Rx's Prescriptions: Continued fluticasone propionate 50 mcg/actuation spray,suspension 2 spray intranasal DAILY Qty: 16 2RF Rx Instructions: administer into each nostril estradiol 0.01 % (0.1 mg/gram) cream 1 g vaginal DAILY Qty: 42.5 5RF Rx Instructions: do daily until seen by Dr Sarah peguero methenamine hippurate 1 gram tablet 1 g PO BID Qty: 180 3RF ondansetron 8 mg tablet,disintegrating 8 mg PO Q8H PRN PRN (Reason: nausea and vomiting) Qty: 90 5RF Rx Instructions: may take every am to PREVENT nausea and 2 additional times daily if needed polyethylene glycol 3350 [Miralax] 17 gram/dose powder 17 g PO BID PRN (Reason: laxative effect) Qty: 238 4RF mirabegron [Myrbetriq] 50 mg tablet extended release 24 hr 50 mg PO DAILY Qty: 90 4RF insulin glargine [Lantus Solostar U-100 Insulin] 100 unit/mL (3 mL) insulin pen See Rx Instructions subcut BID Qty: 60 7RF Rx Instructions: 40 Unit subcutaneously a day; (DME) pen needle, diabetic [BD Ultra-Fine Mini Pen Needle] 31 gauge x 3/16 needle See Rx Instructions .ROUTE .MEDSUPPLY Qty: 90 4RF Rx Instructions: Daily E11.9 (DME) blood-glucose meter [FreeStyle Lite Meter] Kit See Rx Instructions .Route Qty: 1 0RF Rx Instructions: 3 times daily testing E11.9 Creon 24,000-76,000 -120,000 unit capsule,delayed release(DR/EC) 1 cap PO TID Qty: 270 4RF Rx Instructions: administer with meals and/or snacks Ordered by Opal Ontiveros casino floorperson at [facility] [place] Tina. 05/29/23. -hb triamcinolone acetonide 0.1 % cream 1 applic TP DAILY PRN (Reason: irritation) Qty: 80 0RF quetiapine 50 mg tablet 50 mg PO BID Qty: 180 5RF (DME) pen needle, diabetic [BD Ultra-Fine Mini Pen Needle] 31 gauge x 3/16 needle See Rx Instructions .ROUTE .MEDSUPPLY Qty: 200 4RF Rx Instructions: use one BID E11.9 celecoxib 100 mg capsule 100 mg PO BID Qty: 180 2RF pregabalin 25 mg capsule 25 mg PO BID Qty: 180 3RF clonazepam 0.5 mg tablet 0.5 mg PO BID Qty: 180 3RF (DME) lancets [FreeStyle Lancets] 28 gauge misc See Rx Instructions .ROUTE .MEDSUPPLY Qty: 300 5RF Rx Instructions: 3 times daily testing E11.9 (DME) FreeStyle Test Strip See Rx Instructions .Route Qty: 300 4RF Rx Instructions: 3 times daily E11.9 insulin aspart U-100 100 unit/mL (3 mL) insulin pen 4 unit subcut AC MDD 12 Qty: 15 5RF Rx Instructions: give 4 units IF blood sugar is over 200 metoclopramide HCl [Reglan] 5 mg tablet 5 mg PO Q6H Qty: 60 0RF Discharge Instructions Stand Alone Forms: Portal Information Activity:: Activity as Tolerated Equipment/Supplies:: No Equipment Needed Diet:: NPO DS: Summary Time Spent with Patient providing and/or coordinating discharge services: Less than 30 minutes Status at Discharge Functional status at discharge: independent ambulation Overall status at discharge: patient is back to baseline Mental Status: mental status grossly normal Speech and Movement: speech and movement normal Mood: congruent mood Affect: normal affect Quality:SDOH Health Related Social Needs: Health related social needs material hardship educatio n Health related social needs details pt has caregiver c ome in 3 x /week Exam Narrative Exam Narrative: General: This is a pleasant woman in no distress in bed. Jaundiced in face, neck and chest. HEENT: Normocephalic, atraumatic. Sclera icteric. CV: RRR Resp: CTAB Abd: soft, NTND MSK: voluntary motion x4 Neuro: awake, alert, no focal deficits Psych Mental Status: mental status grossly normal Speech and Movement: speech and movement normal Mood: congruent mood Affect: normal affect DS: Data Vitals/I&O Vitals and I&O: Vital Signs Temperature 36.7 C 03/20/25 07:33 Temperature Source Temporal Artery Scan 03/20/25 07:33 Pulse 84 03/20/25 07:33 Pulse 81 03/18/25 19:10 Respiratory Rate 16 03/20/25 07:33 Respiratory Effort Normal 03/18/25 17:54 Respiratory Depth Normal 03/18/25 17:54 Respiratory Pattern Normal 03/18/25 17:54 Blood Pressure 135/58 L 03/20/25 07:33 Blood Pressure Mean 83 03/20/25 07:33 Blood Pressure Position Sitting 03/18/25 19:06 Pulse Oximetry 95 03/20/25 07:33 Oxygen Delivery Method Room Air 03/20/25 07:33 Oxygen Flow Rate 0 03/20/25 07:33 Pain Level 0 03/20/25 07:33 Comment Laying supine 03/19/25 11:31 Intake & Output 03/19/25 03/19/25 03/20/25 11:59 23:59 11:59 Intake Total 170 / 400 230 / 400 Output Total 600 / 1000 400 / 1000 300 / 300 Balance -430 / -600 -170 / -600 -300 / -300 Weight 60.6 kg 61.2 kg Intake: IV 170 / 290 120 / 290 Oral 110 / 110 Output: Urine 600 / 1000 400 / 1000 300 / 300 Other: Urine Color [place] Yellow Pale Urine Appearance Sediment Clear Comment Jaundice in color Stool Size Moderate Stool Characteristics Soft Brown Data Completed and Pending Pending Labs at Discharge: 03/18/25 03/18/25 03/18/25 17:50 17:50 18:14 WBC 12.96 H RBC 3.85 L Hgb 11.0 L Hct 31.9 L MCV 83 MCH 28.6 MCHC 34.5 RDW 17.4 H Plt Count 249 MPV 12.0 H Immature Gran % 0.6 Neutrophils % 79.5 Lymphocytes % 9.6 Monocytes % 7.3 Eosinophils % 2.7 Basophils % 0.3 Nucleated RBC % 0.0 Absolute Neutrophils 10.30 H Absolute Lymphocytes 1.24 Absolute Monocytes 0.95 H Absolute Eosinophils 0.35 Absolute Basophils 0.04 PT 10.3 INR 1.0 APTT 24.6 Cancelled Sodium Cancelled 136 Potassium Cancelled 4.6 Chloride Cancelled 105 Carbon Dioxide Cancelled 26.2 Anion Gap Cancelled 4.8 BUN Cancelled 20 Creatinine Cancelled 0.4 L Est GFR (CKD-EPI 2020) Cancelled 144.77 Glucose Cancelled 106 Calcium Cancelled 7.8 L Magnesium Cancelled 1.6 Total Bilirubin Cancelled 7.40 H Conjugated Bilirubin Cancelled 5.3 H AST Cancelled 171 H ALT Cancelled 99 H Alkaline Phosphatase Cancelled 892 H Total Protein Cancelled 7.0 Albumin Cancelled 2.8 L Lipase Cancelled 13 Urine Color Urine Clarity Urine pH Ur Specific [place] Urine Protein Urine Ketones Urine Blood Urine Nitrite Urine Bilirubin Urine Urobilinogen Ur Leukocyte Esterase Urine RBC Urine WBC Ur Epithelial Cells Urine Crystals Urine Bacteria Urine Casts Urine Mucus Ur Culture Indicated? Urine Glucose COVID-19 Source SARS-CoV-2 (PCR) Influenza Type A (PCR) Influenza Type B (PCR) RSV (PCR) 03/18/25 03/19/25 03/19/25 20:40 04:10 06:12 WBC 9.15 RBC 3.36 L Hgb 9.5 L Hct 27.4 L MCV 82 MCH 28.3 MCHC 34.7 RDW 17.3 H Plt Count 211 MPV 11.6 H Immature Gran % Neutrophils % Lymphocytes % Monocytes % Eosinophils % Basophils % Nucleated RBC % Absolute Neutrophils Absolute Lymphocytes Absolute Monocytes Absolute Eosinophils Absolute Basophils PT 10.4 INR 1.0 APTT Sodium 137 Potassium 3.4 L D Chloride 109 H Carbon Dioxide 24.7 Anion Gap 3.3 BUN 17 Creatinine 0.5 L Est GFR (CKD-EPI 2020) 110.68 Glucose 54 L Calcium 7.8 L Magnesium 1.7 Total Bilirubin 7.10 H Conjugated Bilirubin AST 168 H ALT 96 H Alkaline Phosphatase 833 H Total Protein 6.6 Albumin 2.6 L Lipase Urine Color Yellow Urine Clarity Clear Urine pH 5.5 Ur Specific [place] 1.015 Urine Protein 30 H Urine Ketones Negative Urine Blood Large H Urine Nitrite Negative Urine Bilirubin Large H Urine Urobilinogen 0.2 Ur Leukocyte Esterase Negative Urine RBC 20-50 H Urine WBC 5-10 Ur Epithelial Cells Few Urine Crystals Negative Urine Bacteria Few Urine Casts Negative Urine Mucus Negative Ur Culture Indicated? No Urine Glucose 100 H COVID-19 Source Nasopharynx SARS-CoV-2 (PCR) Negative Influenza Type A (PCR) Negative Influenza Type B (PCR) Negative RSV (PCR) Negative 03/20/25 05:19 WBC 6.17 RBC 4.24 Hgb 13.1 D Hct 38.5 MCV 91 D MCH 30.9 MCHC 34.0 RDW 12.8 Plt Count 197 MPV 10.1 Immature Gran % Neutrophils % Lymphocytes % Monocytes % Eosinophils % Basophils % Nucleated RBC % Absolute Neutrophils Absolute Lymphocytes Absolute Monocytes Absolute Eosinophils Absolute Basophils PT INR APTT Sodium 142 Potassium 4.2 Chloride 108 H Carbon Dioxide 25.1 Anion Gap 8.9 BUN 13 Creatinine 0.8 Est GFR (CKD-EPI 2020) 71.93 Glucose 92 Calcium 8.8 Magnesium 1.9 Total Bilirubin 0.30 Conjugated Bilirubin AST 13 ALT 13 Alkaline Phosphatase 66 Total Protein 6.3 Albumin 3.9 Lipase Urine Color Urine Clarity Urine pH Ur Specific [place] Urine Protein Urine Ketones Urine Blood Urine Nitrite Urine Bilirubin Urine Urobilinogen Ur Leukocyte Esterase Urine RBC Urine WBC Ur Epithelial Cells Urine Crystals Urine Bacteria Urine Casts Urine Mucus Ur Culture Indicated? 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 (Chronic) Advance care planning (Acute) Abdominal ascites (Chronic) Splenic infarct (Acute) Abdominal pain (Acute) Diabetes mellitus (Chronic) Nausea & vomiting (Acute) Impaired functional mobility, balance, gait, and endurance (Acute) Peripheral neuropathy (Acute) Diabetic amyotrophy (Acute) Peroneal neuropathy (Acute) Heart murmur (Acute) Balance problem (Acute) Foot drop, left (Acute) Low back pain potentially associated with radiculopathy (Acute) Hip pain (Acute) Diabetes mellitus with neuropathy (Chronic) Nail dystrophy (Acute) Memory changes (Acute) Mass, brain (Acute) MRI 04/17/23 3mm small enhancing focus ? mets Adenocarcinoma of pancreas (Acute) [place] [facility] [place] Hypertension (Chronic) Acute on chronic anemia (Acute) Liver failure, acute (Acute) Hyperbilirubinemia (Acute) Jaundice (Acute) Diverticulosis of colon without diverticulitis (Chronic) Lichen planus (Chronic) mouth OAB (overactive bladder) (Acute) Medical History Kidney stone Calculus of left ureter Anxiety chronic benzodiazipine use 03/27/17 FLOR-7 SCORE=7 07/02/17 FLOR-7 SCORE=13 Thrombocytopenia Nuclear age-related cataract, left eye Ingrown nail Osteoporosis Insomnia Hematuria Neg work-up 2013. UA not meeting RBC in years since for repeat Right hip pain (03/27/17) Hypercholesterolemia Generalized osteoarthrosis low back pain; xray + DJD Ingrowing toenail (04/14/14) Hematuria unspeficified; asymptomatic; neg W/U Fatigue 06/26/12 Ingrown toenail 04/14/14 Urinary tract infectious disease recurrent Surgical History Nuclear age-related cataract, right eye History of cataract surgery History of bladder repair surgery Status post laparoscopic hysterectomy H/O bladder repair surgery sling S/P laparoscopic hysterectomy 05/07/83 partial, dysmenorrhea Hysterectomy, Laproscopic (~1983) partial; dysmenorrhea Bladder Surgery (~1999) SLING Family History Mother , age 92 Dementia Father , age 78 Cancer Brother Asthma Brother ALS (amyotrophic lateral sclerosis) Brother No problems noted. Maternal Grandfather , age 50 Black lung disease Paternal Grandfather , age 65 Black lung disease Maternal Grandmother , age 80 No problems noted. Paternal Grandmother , age 84 No problems noted. Son No problems noted. Son No problems noted. Social History Smoking/Tobacco Use Status: Former Tobacco Use tobacco type: cigarettes Quit Date: 05/07/97 Tobacco: How many years used: 15 Second Hand Exposure: Yes Smoking risk assessment performed?: Yes Alcohol Intake: current Alcohol Intake frequency: holidays/special occasions only Drug use: Never Substance use type: does not use Adopted: No Household members: spouse Housing: house Number of Children: 2 number of grandchildren: 4 Communication Needs: None Education Level: college Details: A.S. 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 Pets and animals: No Sexually active: No Do you think of yourself as: straight/heterosexual Current gender identity: female What is your relationship status?: How often do you talk on the phone with friends or family?: three or more times per week How often do you get together with friends or relatives?: decline to answer How often do you attend gnosticism or sikh services?: 4 or more times per year Do you belong to any clubs or organized social groups?: yes Panel score (0-1 are the most socially isolated patients): 4 What type of physical activity do you participate in: walking, aerobic, bicycling and swimming Duration: 30-45 minutes/day Frequency: 3-4 times per week Lorraine/Roman Catholic: Christianity Special lorraine needs: No Seatbelt use: always Helmet use: Yes Helmet use: always Drive intox or ride w/intox front end loader driver: No Firearms in home: Yes Do you feel safe at home: Yes Do you feel safe in your relationship?: Yes Victim of physical abuse: No Victim of emotional abuse: No Victim of sexual abuse: No Would you like helpful sources: No Additional Social history: lives with of 59 years [place] in [place] Time Spent with Patient Time Spent with Patient: <45 minutes Time was spent: preparing to see the patient(eg.review tests), obtaining and/or reviewing separately otained hiistory, ordering medications,tests, procedures, referring, communicating with other health home care assistant, indepentently interpreting results, counseling the patient and care coordination
[2025-03-20] MEDS: Mirabegron 50 MG TABCR PO (08:56)
[2025-03-20] MEDS: QUEtiapine 50 MG TAB PO ×2 (08:56→20:48)
[2025-03-20] MEDS: Metoclopramide 10 MG TAB 5 MG PO ×3 (08:56→22:58)
[2025-03-20] MEDS: Celecoxib 100 MG CAP PO ×2 (08:57→20:48)
[2025-03-20] MEDS: clonazePAM 0.5 MG TAB PO ×2 (08:57→20:48)
[2025-03-20] MEDS: Pregabalin 25 MG CAP PO ×2 (09:00→20:48)
[2025-03-20] MEDS: Normal Saline Flush 10 ML SYR IVP ×3 (09:38→20:48)
--- NOTE | 2025-03-20 09:50 | NUR.NOTE ---
upon rounds pt is alert and oriented x 4. pt denies pain pt remains NPO meds ok to give with sips pt lbeing transported to [facility] for ERCP at 9:45am gave report to Jazlyn PALMA pt made aware of transfer at 10:30am pt offered no complaints Nursing Note:
--- NOTE | 2025-03-20 16:32 | CMPROGNOTE_ITS ---
Date of service: 03/20/25 Time of Service: 16:32 Care Management Progress Note Progress Note Text Progress Note Text: Per report, Tina went to [facility] for a procedure today, which was intended to be a down and back, indicating that she will return later today. Per MD, she has biliary and duodenal stents and is being evaluated at [facility] for additional stenting. Her discharge plan remains for her to return home with a resumption of private caregivers and family support. CM will continue to follow. Discharge Potential Discharge Needs: PCP F/U Appt Anticipated Barriers to Discharge: None Identified Patient/Family Education Needs: Review discharge instructions, discuss Ask Me Three Transportation: Private vehicle Plan: Anticipate Tina will return home once medically cleared. Her will drive her home via private vehicle. She will follow up with her PCP and discharge plan of care. CM will continue to follow. Social Determinants of Health Screening Social Determinants of health last assessed in clinic: 03/20/25 Will the Patient Participate in the Screening?: Yes Do you worry about having a steady place to live?: no Problems where you live: no known problems In the past 12 months, have you had to go without electric, gas, oil or water in your home?: no 1. Within the past 12 months, we worried whether our food would run out before we got money to buy more.: Don't know/refused 2. Within the past 12 months, the food we bought just didn't last and we didn't have money to get more.: Don't know/refused Has lack of transportation kept you from medical appointments or from doing things needed for daily living?: no Has anyone in your life made you feel unsafe or unsupported?: no How hard is it for you to pay for the very basics like food, housing, medical care, and heating? Would you say it is:: Not hard at all Do you want help finding or keeping work or a job?: I do not need or want help If for any reason you need help with day-to-day activities such as bathing, preparing meals, shopping, managing finances, etc., do you get the help you need?: I get all the help I need How often do you feel lonely or isolated from those around you?: Never Do you speak a language other than [place]ral[place] at home?: No Does the patient want assistance with any of the above?: No
[2025-03-20 16:42] VITALS: BP 130/67; PULSE 78; TEMP 35.7
[2025-03-20] MEDS: Creon, Lipase 24,000 CAPCR 1 CAP PO (17:01)
--- NOTE | 2025-03-20 17:14 | NUR.NOTE ---
Nursing Note: At 3pm report given from [facility] pt returned at 4:30pm VSS pt alert and oriented x 4 pt denies pain pt up to BR to void voided 400cc of dark hannah urine pt given all meds due started IV zosyn call hartmann at side safety maintained
[2025-03-20 20:52] VITALS: BP 147/72; PULSE 82; RESP 16; TEMP 36; O2SAT 94
[2025-03-20] MEDS: Lactated Ringers 1,000 ML 75 ML IV (21:03)
[2025-03-20 23:32] VITALS: BP 128/52; PULSE 80; RESP 16; TEMP 36.8; O2SAT 92
[2025-03-21 03:55] VITALS: BP 138/67; PULSE 72; RESP 16; TEMP 36.4; O2SAT 95
[2025-03-21] MEDS: PIPERACILLIN/TAZO 3.375 GM in Normal Saline 50 ML IVPB ×2 (04:42→09:44)
[2025-03-21 07:29] VITALS: BP 112/48; PULSE 71; RESP 16; TEMP 36.6; O2SAT 95
[2025-03-21] MEDS: Fluticasone NASAL SPRAY 16 GM BTL NS (08:03)
[2025-03-21] MEDS: Creon, Lipase 24,000 CAPCR 1 CAP PO ×2 (08:03→11:42)
[2025-03-21] MEDS: Mirabegron 50 MG TABCR PO (08:04)
[2025-03-21] MEDS: Pregabalin 25 MG CAP PO (08:05)
[2025-03-21] MEDS: Celecoxib 100 MG CAP PO (08:05)
[2025-03-21] MEDS: clonazePAM 0.5 MG TAB PO (08:05)
[2025-03-21] MEDS: Metoclopramide 10 MG TAB 5 MG PO ×2 (08:05→11:42)
[2025-03-21] MEDS: QUEtiapine 50 MG TAB PO (08:05)
[2025-03-21] MEDS: Normal Saline Flush 10 ML SYR IVP (08:06)
[2025-03-21 11:40] VITALS: BP 130/66; PULSE 71; RESP 16; TEMP 36.5; O2SAT 93
--- NOTE | 2025-03-21 11:56 | DSE_ITS ---
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 She presented 03/18 with acute jaundice. She has inoperable pancreatic cancer and a history of biliary and duodenal stents. Her labs demonstrated a biliary obstructive pattern with bili of 7.4, AST/ALT of 171/99 and AP of 892. WBC was 12.93 so piperacillin/tazobactam was started. She was transported to [facility] as a down/back procedure to replace the stents on 03/20. After the procedure her LFTs improved and her WBC normalized. The antibiotics were discontinued prior to discharge. She felt well and was evaluated by physical therapy and was felt safe for discharge. She was seen by Dr. Weldon as a palliative consult who discussed hospice with them. Recommendations for Follow Up Recommended tests to be ordered by follow up provider: CBC, CMP 1 week Home Meds and New Rx's Prescriptions: Continued fluticasone propionate 50 mcg/actuation spray,suspension 2 spray intranasal DAILY Qty: 16 2RF Rx Instructions: administer into each nostril estradiol 0.01 % (0.1 mg/gram) cream 1 g vaginal DAILY Qty: 42.5 5RF Rx Instructions: do daily until seen by Dr Sarah peguero methenamine hippurate 1 gram tablet 1 g PO BID Qty: 180 3RF ondansetron 8 mg tablet,disintegrating 8 mg PO Q8H PRN PRN (Reason: nausea and vomiting) Qty: 90 5RF Rx Instructions: may take every am to PREVENT nausea and 2 additional times daily if needed polyethylene glycol 3350 [Miralax] 17 gram/dose powder 17 g PO BID PRN (Reason: laxative effect) Qty: 238 4RF mirabegron [Myrbetriq] 50 mg tablet extended release 24 hr 50 mg PO DAILY Qty: 90 4RF insulin glargine [Lantus Solostar U-100 Insulin] 100 unit/mL (3 mL) insulin pen See Rx Instructions subcut BID Qty: 60 7RF Rx Instructions: 40 Unit subcutaneously a day; (DME) pen needle, diabetic [BD Ultra-Fine Mini Pen Needle] 31 gauge x 3/16 needle See Rx Instructions .ROUTE .MEDSUPPLY Qty: 90 4RF Rx Instructions: Daily E11.9 (DME) blood-glucose meter [FreeStyle Lite Meter] Kit See Rx Instructions .Route Qty: 1 0RF Rx Instructions: 3 times daily testing E11.9 Creon 24,000-76,000 -120,000 unit capsule,delayed release(DR/EC) 1 cap PO TID Qty: 270 4RF Rx Instructions: administer with meals and/or snacks Ordered by Opal Ontiveros accounting administrative assistant at [facility] per Tina. 05/29/23. -hb triamcinolone acetonide 0.1 % cream 1 applic TP DAILY PRN (Reason: irritation) Qty: 80 0RF quetiapine 50 mg tablet 50 mg PO BID Qty: 180 5RF (DME) pen needle, diabetic [BD Ultra-Fine Mini Pen Needle] 31 gauge x 3/16 needle See Rx Instructions .ROUTE .MEDSUPPLY Qty: 200 4RF Rx Instructions: use one BID E11.9 celecoxib 100 mg capsule 100 mg PO BID Qty: 180 2RF pregabalin 25 mg capsule 25 mg PO BID Qty: 180 3RF clonazepam 0.5 mg tablet 0.5 mg PO BID Qty: 180 3RF (DME) lancets [FreeStyle Lancets] 28 gauge misc See Rx Instructions .ROUTE .MEDSUPPLY Qty: 300 5RF Rx Instructions: 3 times daily testing E11.9 (DME) FreeStyle Test Strip See Rx Instructions .Route Qty: 300 4RF Rx Instructions: 3 times daily E11.9 insulin aspart U-100 100 unit/mL (3 mL) insulin pen 4 unit subcut AC MDD 12 Qty: 15 5RF Rx Instructions: give 4 units IF blood sugar is over 200 metoclopramide HCl [Reglan] 5 mg tablet 5 mg PO Q6H Qty: 60 0RF Discharge Instructions Additional Instructions: Follow up as planned with Dr. Weldon Stand Alone Forms: Portal Information Activity:: Activity as Tolerated Equipment/Supplies:: No Equipment Needed Diet:: NPO Discharge Orders Discharge Orders: Discharge Order (Routine); Ordered 03/21/25 Ordered By: uYng Hair DS: Summary Time Spent with Patient providing and/or coordinating discharge services: Greater than 30 minutes Status at Discharge Functional status at discharge: independent ambulation Overall status at discharge: patient is back to baseline Mental Status: mental status grossly normal Speech and Movement: speech and movement normal Mood: congruent mood Affect: normal affect Quality:SDOH Health Related Social Needs: Health related social needs material hardship educatio n Health related social needs details pt has caregiver c ome in 3 x /week Exam Narrative Exam Narrative: General: This is a pleasant woman in no distress in bed, sits up on her own. Jaundiced in face, neck and chest. HEENT: Normocephalic, atraumatic. Sclera icteric. CV: RRR Resp: CTAB Abd: soft, NT, very mild distention Ext: warm, trace seema ankle edema, not tender. Neuro: awake, alert, no focal deficits, no tremor Psych Mental Status: mental status grossly normal Speech and Movement: speech and movement normal Mood: congruent mood Affect: normal affect DS: Data Vitals/I&O Vitals and I&O: Vital Signs Temperature 36.5 C 03/21/25 11:40 Temperature Source Temporal Artery Scan 03/21/25 11:40 Pulse 71 03/21/25 11:40 Pulse 81 03/18/25 19:10 Respiratory Rate 16 03/21/25 11:40 Respiratory Effort Normal 03/18/25 17:54 Respiratory Depth Normal 03/18/25 17:54 Respiratory Pattern Normal 03/18/25 17:54 Blood Pressure 130/66 03/21/25 11:40 Blood Pressure Mean 87 03/21/25 11:40 Blood Pressure Position Sitting 03/18/25 19:06 Pulse Oximetry 93 03/21/25 11:40 Oxygen Delivery Method Room Air 03/21/25 11:40 Oxygen Flow Rate 0 03/21/25 11:40 Pain Level 0 03/21/25 11:40 Comment Laying supine 03/19/25 11:31 Intake & Output 03/20/25 03/20/25 03/21/25 11:59 23:59 11:59 Intake Total 50 / 1200 1150 / 1200 1100 / 1100 Output Total 300 / 700 400 / 700 600 / 600 Balance -250 / 500 750 / 500 500 / 500 Weight 61.2 kg 62 kg Intake: IV 50 / 1200 1150 / 1200 1100 / 1100 Output: Urine 300 / 700 400 / 700 600 / 600 Other: Urine Color Pale Dark Jodie Pale Yellow Dark Jodie Urine Appearance Clear Cloudy Clear Urine Odor Normal Comment jaundice in color Stool Size Moderate Stool Characteristics Formed Hard Huynh Data Completed and Pending Pending Labs at Discharge: 03/18/25 03/18/25 03/18/25 17:50 17:50 18:14 WBC 12.96 H RBC 3.85 L Hgb 11.0 L Hct 31.9 L MCV 83 MCH 28.6 MCHC 34.5 RDW 17.4 H Plt Count 249 MPV 12.0 H Immature Gran % 0.6 Neutrophils % 79.5 Lymphocytes % 9.6 Monocytes % 7.3 Eosinophils % 2.7 Basophils % 0.3 Nucleated RBC % 0.0 Absolute Neutrophils 10.30 H Absolute Lymphocytes 1.24 Absolute Monocytes 0.95 H Absolute Eosinophils 0.35 Absolute Basophils 0.04 PT 10.3 INR 1.0 APTT 24.6 Cancelled Sodium Cancelled 136 Potassium Cancelled 4.6 Chloride Cancelled 105 Carbon Dioxide Cancelled 26.2 Anion Gap Cancelled 4.8 BUN Cancelled 20 Creatinine Cancelled 0.4 L Est GFR (CKD-EPI 2020) Cancelled 144.77 Glucose Cancelled 106 Calcium Cancelled 7.8 L Magnesium Cancelled 1.6 Total Bilirubin Cancelled 7.40 H Conjugated Bilirubin Cancelled 5.3 H AST Cancelled 171 H ALT Cancelled 99 H Alkaline Phosphatase Cancelled 892 H Total Protein Cancelled 7.0 Albumin Cancelled 2.8 L Lipase Cancelled 13 Urine Color Urine Clarity Urine pH Ur Specific [place] Urine Protein Urine Ketones Urine Blood Urine Nitrite Urine Bilirubin Urine Urobilinogen Ur Leukocyte Esterase Urine RBC Urine WBC Ur Epithelial Cells Urine Crystals Urine Bacteria Urine Casts Urine Mucus Ur Culture Indicated? Urine Glucose COVID-19 Source SARS-CoV-2 (PCR) Influenza Type A (PCR) Influenza Type B (PCR) RSV (PCR) 03/18/25 03/19/25 03/19/25 20:40 04:10 06:12 WBC 9.15 RBC 3.36 L Hgb 9.5 L Hct 27.4 L MCV 82 MCH 28.3 MCHC 34.7 RDW 17.3 H Plt Count 211 MPV 11.6 H Immature Gran % Neutrophils % Lymphocytes % Monocytes % Eosinophils % Basophils % Nucleated RBC % Absolute Neutrophils Absolute Lymphocytes Absolute Monocytes Absolute Eosinophils Absolute Basophils PT 10.4 INR 1.0 APTT Sodium 137 Potassium 3.4 L D Chloride 109 H Carbon Dioxide 24.7 Anion Gap 3.3 BUN 17 Creatinine 0.5 L Est GFR (CKD-EPI 2020) 110.68 Glucose 54 L Calcium 7.8 L Magnesium 1.7 Total Bilirubin 7.10 H Conjugated Bilirubin AST 168 H ALT 96 H Alkaline Phosphatase 833 H Total Protein 6.6 Albumin 2.6 L Lipase Urine Color Yellow Urine Clarity Clear Urine pH 5.5 Ur Specific [place] 1.015 Urine Protein 30 H Urine Ketones Negative Urine Blood Large H Urine Nitrite Negative Urine Bilirubin Large H Urine Urobilinogen 0.2 Ur Leukocyte Esterase Negative Urine RBC 20-50 H Urine WBC 5-10 Ur Epithelial Cells Few Urine Crystals Negative Urine Bacteria Few Urine Casts Negative Urine Mucus Negative Ur Culture Indicated? No Urine Glucose 100 H COVID-19 Source Nasopharynx SARS-CoV-2 (PCR) Negative Influenza Type A (PCR) Negative Influenza Type B (PCR) Negative RSV (PCR) Negative 03/20/25 03/21/25 03/21/25 05:19 11:48 Unknown WBC 6.17 Pending RBC 4.24 Pending Hgb 13.1 D Pending Hct 38.5 Pending MCV 91 D Pending MCH 30.9 Pending MCHC 34.0 Pending RDW 12.8 Pending Plt Count 197 Pending MPV 10.1 Pending Immature Gran % Neutrophils % Lymphocytes % Monocytes % Eosinophils % Basophils % Nucleated RBC % Absolute Neutrophils Absolute Lymphocytes Absolute Monocytes Absolute Eosinophils Absolute Basophils PT INR APTT Sodium 142 Pending Potassium 4.2 Pending Chloride 108 H Pending Carbon Dioxide 25.1 Pending Anion Gap 8.9 Pending BUN 13 Pending Creatinine 0.8 Pending Est GFR (CKD-EPI 2020) 71.93 Pending Glucose 92 Pending Calcium 8.8 Pending Magnesium 1.9 Total Bilirubin 0.30 Pending Conjugated Bilirubin AST 13 Pending ALT 13 Pending Alkaline Phosphatase 66 Pending Total Protein 6.3 Pending Albumin 3.9 Pending Lipase Urine Color Urine Clarity Urine pH Ur Specific [place] Urine Protein Urine Ketones Urine Blood Urine Nitrite Urine Bilirubin Urine Urobilinogen Ur Leukocyte Esterase Urine RBC Urine WBC Ur Epithelial Cells Urine Crystals Urine Bacteria Urine Casts Urine Mucus Ur Culture Indicated? 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 (Chronic) Advance care planning (Acute) Abdominal ascites (Chronic) Splenic infarct (Acute) Abdominal pain (Acute) Diabetes mellitus (Chronic) Nausea & vomiting (Acute) Impaired functional mobility, balance, gait, and endurance (Acute) Peripheral neuropathy (Acute) Diabetic amyotrophy (Acute) Peroneal neuropathy (Acute) Heart murmur (Acute) Balance problem (Acute) Foot drop, left (Acute) Low back pain potentially associated with radiculopathy (Acute) Hip pain (Acute) Diabetes mellitus with neuropathy (Chronic) Nail dystrophy (Acute) Memory changes (Acute) Mass, brain (Acute) MRI 04/17/23 3mm small enhancing focus ? mets Adenocarcinoma of pancreas (Acute) bx 03/29 at [facility] Hypertension (Chronic) Acute on chronic anemia (Acute) Liver failure, acute (Acute) Hyperbilirubinemia (Acute) Jaundice (Acute) OAB (overactive bladder) (Acute) Lichen planus (Chronic) mouth Diverticulosis of colon without diverticulitis (Chronic) Medical History Kidney stone Calculus of left ureter Anxiety chronic benzodiazipine use 03/27/17 FLOR-7 SCORE=7 07/02/17 FLOR-7 SCORE=13 Thrombocytopenia Nuclear age-related cataract, left eye Ingrown nail Osteoporosis Insomnia Hematuria Neg work-up 2013. UA not meeting RBC in years since for repeat Right hip pain (03/27/17) Hypercholesterolemia Generalized osteoarthrosis low back pain; xray + DJD Ingrowing toenail (04/14/14) Hematuria unspeficified; asymptomatic; neg W/U Fatigue 06/26/12 Ingrown toenail 04/14/14 Urinary tract infectious disease recurrent Surgical History Nuclear age-related cataract, right eye History of cataract surgery History of bladder repair surgery Status post laparoscopic hysterectomy H/O bladder repair surgery sling S/P laparoscopic hysterectomy 05/07/83 partial, dysmenorrhea Hysterectomy, Laproscopic (~1983) partial; dysmenorrhea Bladder Surgery (~1999) SLING Family History Mother , age 92 Dementia Father , age 78 Cancer Brother Asthma Brother ALS (amyotrophic lateral sclerosis) Brother No problems noted. Maternal Grandfather , age 50 Black lung disease Paternal Grandfather , age 65 Black lung disease Maternal Grandmother , age 80 No problems noted. Paternal Grandmother , age 84 No problems noted. Son No problems noted. Son No problems noted. Social History Smoking/Tobacco Use Status: Former Tobacco Use tobacco type: cigarettes Quit Date: 05/07/97 Tobacco: How many years used: 15 Second Hand Exposure: Yes Smoking risk assessment performed?: Yes Alcohol Intake: current Alcohol Intake frequency: holidays/special occasions only Drug use: Never Substance use type: does not use Adopted: No Household members: spouse Housing: house Number of Children: 2 number of grandchildren: 4 Communication Needs: None Education Level: college Details: A.S. 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 Pets and animals: No Sexually active: No Do you think of yourself as: straight/heterosexual Current gender identity: female What is your relationship status?: How often do you talk on the phone with friends or family?: three or more times per week How often do you get together with friends or relatives?: decline to answer How often do you attend methodist or mandaen services?: 4 or more times per year Do you belong to any clubs or organized social groups?: yes Panel score (0-1 are the most socially isolated patients): 4 What type of physical activity do you participate in: walking, aerobic, bicycling and swimming Duration: 30-45 minutes/day Frequency: 3-4 times per week Lorraine/Methodist: Spiritism Special lorraine needs: No Seatbelt use: always Helmet use: Yes Helmet use: always Drive intox or ride w/intox hazmat tanker driver: No Firearms in home: Yes Do you feel safe at home: Yes Do you feel safe in your relationship?: Yes Victim of physical abuse: No Victim of emotional abuse: No Victim of sexual abuse: No Would you like helpful sources: No Additional Social history: lives with of 59 years Addy in [place] Time Spent with Patient Time Spent with Patient: <45 minutes Time was spent: preparing to see the patient(eg.review tests), obtaining and/or reviewing separately otained hiistory, ordering medications,tests, procedures, referring, communicating with other health hearing healthcare practitioner, indepentently interpreting results, counseling the patient and care coordination
[2025-03-21 12:21] LABS: HCT 25.6 % (36.0-46.0); MCH 29.0 pg (27.0-33.0); MCHC 34.8 % (32.0-36.0); MCV 83 fL (80-95); MPV 12.4 fL (8.0-11.0); Platelet Count 192 10^3/uL (130-400); RBC 3.07 10^6/uL (3.93-5.22); RDW 18.0 % (11.7-14.6); RDW-SD 53.5 fL; WBC 6.74 10^3/uL (4.4-10.8)
[2025-03-21 12:31] LABS: HGB 8.9 g/dL (11.2-15.7)
[2025-03-21 12:41] LABS: ALT 74 U/L (10-49); AST 115 U/L (<34); Albumin 2.4 g/dL (3.4-5.0); Alkaline Phosphatase 712 U/L (46-116); Anion Gap 4.8 mmol/L (3-11); BUN 14 mg/dL (9-23); Bilirubin, Total 5.50 mg/dL (0.2-1.2); CO2 26.2 mmol/L (20.0-31.0); Calcium 7.8 mg/dL (8.3-10.6); Chloride 106 mmol/L (98-107); Glucose 200 mg/dL (74-106); Potassium 3.7 mmol/L (3.5-5.1); Sodium 137 mmol/L (136-145); Total Protein 6.2 g/dL (5.7-8.2)
--- NOTE | 2025-03-21 13:13 | PT.INIE ---
Date of service: 03/21/25 Time of Service: 12:35 PT Notes Visit Reasons: Pancreatic Cancer, Worsening Jaundice Inpatient Physical Therapy Evaluation Date: March 21, 2025 Referring Doctor: Yung Hair PT Orders: PT CONSULT: safety consult for D/C Precautions: standard Patient Profile/Admitting Diagnosis: Tina is an 80 year old female with advancing non-operable and non-treatment responding pancreatic cancer. Referred for safety eval only PMHX: Hypoglycemia (Acute) SIRS (systemic inflammatory response syndrome) (Acute) Splenic infarct (Acute) Abdominal pain (Acute) Elevated liver enzymes (Acute) Diabetes mellitus (Chronic) Nausea & vomiting (Acute) Impaired functional mobility, balance, gait, and endurance (Acute) Peripheral neuropathy (Acute) Diabetic amyotrophy (Acute) Peroneal neuropathy (Acute) Heart murmur (Acute) Balance problem (Acute) Foot drop, left (Acute) Low back pain potentially associated with radiculopathy (Acute) Hip pain (Acute) Diabetes mellitus with neuropathy (Acute) Nail dystrophy (Acute) Memory changes (Acute) Mass, brain (Acute) MRI 04/17/23 3mm small enhancing focus ? metsAdenocarcinoma of pancreas (Acute[facility] [place]) Acute on chronic anemia (Acute) Liver failure, acute (Acute) Hyperbilirubinemia (Acute) Jaundice (Acute) Diverticulosis of colon without diverticulitis (Chronic) Lichen planus (Chronic) mouth OAB (overactive bladder) (Acute) Medical History (Updated 02/26/25 @ 15:10 by Jhonny Villanueva MD) Kidney stone Calculus of left ureter Anxiety chronic benzodiazipine use 03/27/17 FLOR-7 SCORE=7 07/02/17 FLOR-7 SCORE=13 Thrombocytopenia Nuclear age-related cataract, left eye Ingrown nail Osteoporosis Insomnia Hematuria Neg work-up 2013. UA not meeting RBC in years since for repeatRight hip pain (03/27/17) Hypercholesterolemia Generalized osteoarthrosis low back pain; xray + DJD Ingrowing toenail (04/14/14) Hematuria unspeficified; asymptomatic; neg W/UFatigue 06/26/12Ingrown toenail 04/14/14Urinary tract infectious disease recurrent Surgical History Nuclear age-related cataract, right eye History of cataract surgery History of bladder repair surgery Status post laparoscopic hysterectomy H/O bladder repair surgery slingS/P laparoscopic hysterectomy 05/07/83 partial, dysmenorrheaHysterectomy, Laproscopic (~1983) partial; dysmenorrheaBladder Surgery (~1999) SLING Social History/Home Situation: Resides with in multilevel home with 10 steps to enter with bilateral rails. Patient reports multiple areas with 2-3 steps with a railing as well as some areas of home with 1 step without a rail. Patient independent ambulation within home without device utilizing furniture for support. Intermittently uses FWW at times of weakness. Equipment Owned/DME: FWW Subjective: Patient reports she is feeling much better. Hopeful to be able to go home this afternoon. Objective: General Observation: Alert active female supine in bed able to follow commands agreeable to participate Mental Status: Alert and oriented x 4, talkative ROM: BUE: WNL BLE: WNL Strength: Right Upper Extremity: 5/5 Left Upper Extremity: 5/5 Right Lower Extremity: Grossly/functionally 4/5 Left Lower Extremity: grossly/functionally 4/5 Sensation: Intact Bed Mobility/Transfers: Supine to sit independent Sit to stand independent Stand to sit independent Bed to chair independent with FWW Gait: Ambulated with FWW 300 feet SBA Stairs:3 4 steps and 2 6 steps with B rails SBA with reciprocal pattern Balance: Static Sitting: Normal Dynamic Sitting: Good Static Standing: Normal Dynamic Standing: Good Special Tests: Mobility Limitations Standardized Measure [facility] AM-PAC 6 clicks Basic Mobility Inpatient Short Form: Raw Score: 22 CMS Score: 21% deficit Informed Consent/Education: Patient instructed in purpose of PT consult. Assessment: Patient is an 80-year-old female presenting with known adenocarcinoma of the pancreas with elevated liver enzymes. Patient presents with clinical signs and symptoms consistent with current/admitting diagnoses that have resulted to mobility limitations, gait instability, generalized weakness, and impairment of motor control as demonstrated by the following impairment level findings: 1. Decreased strength/motor control to BLE major muscle groups 2. Impaired dynamic standing balance 3. Impaired functional activity tolerance Impairments are contributing to the following functional limitations: 1. Increase completion time for mobility ADL performance 2. Increased fall risk recommend use of AD Patient is assessed as a low complexity based on the following: History: As above Examination: As above Presentation: Evolving Decision Making: Moderate Goals:N/A. PT evaluation and 1 treatment sessions only for functional mobility training using recommended AD . Plan of Care/Treatment Plan: PT evaluation and 1 treatment session only for functional mobility training using recommended AD . DISCHARGE RECOMMENDATIONS: Home with home health PT TREATMENT CODE/TIME: 81802, 12:35-13:05 pm 30 minutes Rosalinda Huddleston, MPT [facility] Thank you for the opportunity to participate in the care of this patient.
--- NOTE | 2025-03-21 13:34 | CMDISCH_ITS ---
Date of service: 03/21/25 Time of Service: 13:34 LACE Index Scoring Tool Questions: Length of Stay (in days): 3 Was the patient admitted via the E.D.?: Yes Comorbidities: Diabetes w/o Complication, Liver or Renal Disease and Metastatic Solid Tumor E.D. Visits: 4 Answers: Total Score: 15 Risk of Readmission: High Risk Care Management Discharge Plan Reason for Hospitalization: Pancreatic cancer, worsening jaundice Discharge Plan: Tina will return home with a resumption of her private caregivers, three days a week. Her will drive her home via private vehicle. She will follow up with her PCP and discharge plan of care. She is happy to be going home. Patient/Family Education Needs: Review discharge instructions and limitations, discussion of self care needs including ask me three. SDOH Health Related Social Needs: Health related social needs material hardship educatio n Health related social needs details pt has caregiver c ome in 3 x /week
== END 2025-03-21 14:22 | disposition home or self-care (01) ==
LOC: ER 20:55 → MS 21:29
PROVIDERS: Admitting Provider Family Medicine; Emergency Provider Emergency Medicine; PCP Family Medicine; Responsible Provider Family Medicine; Visit Provider Family Medicine
DX: K83.09 Other cholangitis (principal); R17 Unspecified jaundice; C25.9 Malignant neoplasm of pancreas, unspecified; C77.2 Secondary and unspecified malignant neoplasm of intra-abdominal lymph nodes; R18.0 Malignant ascites; E11.42 Type 2 diabetes mellitus with diabetic polyneuropathy; Z79.4 Long term (current) use of insulin; I10 Essential (primary) hypertension; Z66 Do not resuscitate; N32.81 Overactive bladder; R26.89 Other abnormalities of gait and mobility; E11.44 Type 2 diabetes mellitus with diabetic amyotrophy; M21.372 Foot drop, left foot; R41.3 Other amnesia; K57.30 Diverticulosis of large intestine without perforation or abscess without bleeding; D64.9 Anemia, unspecified; F41.9 Anxiety disorder, unspecified; D69.6 Thrombocytopenia, unspecified; M81.0 Age-related osteoporosis without current pathological fracture; G47.00 Insomnia, unspecified; E78.00 Pure hypercholesterolemia, unspecified; M15.9 Polyosteoarthritis, unspecified; D73.5 Infarction of spleen; D72.829 Elevated white blood cell count, unspecified; Z96.89 Presence of other specified functional implants; Z59.87 Material hardship due to limited financial resources, not elsewhere classified
CPT/HCPCS: 00123; 36415; 80053; 83690; 85027; 87040; 87637; 97162; 99285; J1650; 74177; 74181; 81003; 81015; 82248; 83735; 85025; 85610; 85730; 99223; 99231; 99233; 99238; G0378; J1815; J2543; J3490

== ENCOUNTER 2025-04-20 10:24 | Outpatient (REF) | payer OTHER, SELFPAY ==
[2025-04-20 12:24] LABS: Polynuclear Cells 25 %
== END 2025-04-20 10:25 | disposition home or self-care (01) ==
LOC: LBN 10:24
PROVIDERS: PCP Family Medicine; Visit Provider Surgery
DX: R18.0 Malignant ascites (principal)
CPT/HCPCS: 87070; 87205; 89051

== ENCOUNTER 2025-04-20 13:22 | Inpatient (IN) | payer OTHER, SELFPAY ==
[2025-04-20 11:53] VITALS: BP 160/65; PULSE 94; RESP 22; TEMP 36.9; O2SAT 96
[2025-04-20] MEDS: Ondansetron 4 MG/2 ML VIAL IVP ×2 (12:41→20:02)
[2025-04-20] MEDS: MORPHine 10 MG/ML VIAL IV/SC (12:42)
[2025-04-20] MEDS: LORazepam 2 MG/ML VIAL IV/SC ×2 (13:25→20:02)
--- NOTE | 2025-04-20 13:31 | W.PM.HP.N ---
Date of service: 04/20/25 Time of Service: 12:00 Assessment and Plan Assessment and plan (1) Hospice care patient: Status: Acute Assessment and plan: Mrs. 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: Status: Chronic Assessment and plan: hospice diagnosis (3) Abdominal ascites: Status: Chronic Assessment and plan: 4.5L drained today, culture pending (4) Abdominal pain: Status: Acute Assessment and plan: continue fentanyl 12mcg/hr TD patch, placed yesterday - anticipate increase continue morphine 2-4mg IVP q1h PRN today, increase fentanyl pending morphine use overnight (5) Nausea & vomiting: Status: Acute Assessment and plan: tolerating IV Zofran w/improvement initially - recommend start w/lorazepam 0.5mg IVP today - place scopolamine patch pending nausea sxs - consider haldol if no effect pending resolution, transition to oral antiemetics: Zofran, Compazine - may consider Reglan pending resumption of bowels (6) Memory changes: Status: Acute (7) Anxiety: Assessment and plan: lorazepam 0.5-1mg q4h IVP PRN - transition to orals as tolerated (8) Mass, brain: Status: Acute Assessment and plan: w/newer onset confusion reported - haldol PRN History of Present Illness Narrative: Mrs. Wilder is an 80 y/o F currently admitted to [facility] under HOSPICE for SYMPTOM MANAGEMENT; Hospice diagnosis is pancreatic cancer; /HCA not available today Tina presented to day surgery today for an outpatient paracentesis w/Dr. Munoz; upon arrival she had uncontrolled N/V, vomiting and pain uncontrolled; he was able to successfully drain 4.5L of fluid, specimen sent w/concerns for SBP; d/t her worsening condition she was admitted for active symptom management w/ongoing vomiting and uncontrolled pain Pain: at home was started on fentanyl patch 12 TD, placed yesterday; it is unclear if she had used any morphine prior to presentation today - received dose of IV morphine w/good effect Oral Intake: has been reduced, worsening x2wks w/limited oral intake; N/V and abdominal discomfort potentially influencing this; has not been taking oral scheduled medications d/t discomfort - N/V was bad on arrival to [facility] unit, since arrival has received 1 dose IV Zofran w/good effect - Tina reports still has some nausea currently BM: has not moved bowels for 1 wk, has not been taking home medications including lactulose; Activity: weaker, worsening x2 weeks and has been mostly bed bound over this time Dizziness complaints today, would like to trial meclizine ACP: admitted to hospice 1 week ago, AD previously completed, preference for remaining home as long as possible, okay w/hospital if needed for supportive care Review of Systems Narrative: as per HPI pt unable to provide more history d/t confusion PFSH All Active Problems Hospice care patient (Acute) Acute cholangitis (Acute) Jaundice (Acute) 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 mets Adenocarcinoma of pancreas (Acute) bx 03/29 at [facility] Hypertension (Chronic) Acute on chronic anemia (Acute) Liver failure, acute (Acute) Hyperbilirubinemia (Acute) Jaundice (Acute) Diverticulosis of colon without diverticulitis (Chronic) Lichen planus (Chronic) mouth OAB (overactive bladder) (Acute) Medical History Kidney stone Calculus of left ureter Anxiety chronic benzodiazipine use 03/27/17 FLOR-7 SCORE=7 07/02/17 FLOR-7 SCORE=13 Thrombocytopenia Nuclear age-related cataract, left eye Ingrown nail Osteoporosis Insomnia Hematuria Neg work-up 2013. UA not meeting RBC in years since for repeat Right hip pain (03/27/17) Hypercholesterolemia Generalized osteoarthrosis low back pain; xray + DJD Ingrowing toenail (04/14/14) Hematuria unspeficified; asymptomatic; neg W/U Fatigue 06/26/12 Ingrown toenail 04/14/14 Urinary tract infectious disease recurrent Surgical History Nuclear age-related cataract, right eye History of cataract surgery History of bladder repair surgery Status post laparoscopic hysterectomy H/O bladder repair surgery sling S/P laparoscopic hysterectomy 05/07/83 partial, dysmenorrhea Hysterectomy, Laproscopic (~1983) partial; dysmenorrhea Bladder Surgery (~1999) SLING Family History Mother , age 92 Dementia Father , age 78 Cancer Brother Asthma Brother ALS (amyotrophic lateral sclerosis) Brother No problems noted. Maternal Grandfather , age 50 Black lung disease Paternal Grandfather , age 65 Black lung disease Maternal Grandmother , age 80 No problems noted. Paternal Grandmother , age 84 No problems noted. Son No problems noted. Son No problems noted. Social History Smoking/Tobacco Use Status: Former Tobacco Use tobacco type: cigarettes Quit Date: 05/07/97 Tobacco: How many years used: 15 Second Hand Exposure: Yes Smoking risk assessment performed?: Yes Alcohol Intake: current Alcohol Intake frequency: holidays/special occasions only Drug use: Never Substance use type: does not use Adopted: No Household members: spouse Housing: house Number of Children: 2 number of grandchildren: 4 Communication Needs: None Education Level: college Details: A.S. 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 Pets and animals: No Sexually active: No Do you think of yourself as: straight/heterosexual Current gender identity: female What is your relationship status?: How often do you talk on the phone with friends or family?: three or more times per week How often do you get together with friends or relatives?: decline to answer How often do you attend anglican or baptist services?: 4 or more times per year Do you belong to any clubs or organized social groups?: yes Panel score (0-1 are the most socially isolated patients): 4 What type of physical activity do you participate in: walking, aerobic, bicycling and swimming Duration: 30-45 minutes/day Frequency: 3-4 times per week Lorraine/Methodist: Restoration Special lorraine needs: No Seatbelt use: always Helmet use: Yes Helmet use: always Drive intox or ride w/intox cart driver: No Firearms in home: Yes Do you feel safe at home: Yes Do you feel safe in your relationship?: Yes Victim of physical abuse: No Victim of emotional abuse: No Victim of sexual abuse: No Would you like helpful sources: No Additional Social history: lives with of 59 years Raman in [facility] Allergies and Home Medications Allergies Allergy/AdvReac Type Severity Reaction Status Date / Time ibuprofen AdvReac Mild Stomach Verified 04/07/25 12:48 cramps Home Medications ?Medication ?Instructions ?Recorded ?Confirmed ?Type blood-glucose meter (Praekelt FoundationStyle #1 ea 04/03/23 04/20/25 Rx Lite Meter kit) Held on 04/20/25. Instructions: Pt Stopped/Never Started Creon 24,000-76,000-120,000 unit 1 cap PO TID #270 caps 05/30/23 04/20/25 Rx capsule,delayed release (htkggz-tufzegzi-feihoqa (pork)) quetiapine 50 mg tablet 50 mg PO BID #180 tabs 06/13/24 04/20/25 Rx pen needle, diabetic 31 gauge x #200 ea 06/18/24 04/20/25 Rx 3/16 (BD Ultra-Fine Mini Pen Needle) Held on 04/20/25. Instructions: Pt Stopped/Never Started celecoxib 100 mg capsule 100 mg PO BID #180 caps 08/28/24 04/20/25 Rx mirabegron 50 mg tablet,extended 50 mg PO DAILY #90 tabs 09/17/24 04/20/25 Rx release 24 hr (Myrbetriq) clonazepam 0.5 mg tablet 0.5 mg PO BID #180 tab-caps 09/22/24 04/20/25 Rx blood sugar diagnostic (FreeStyle #300 ea 11/03/24 04/20/25 Rx Test strips) Held on 04/20/25. Instructions: Pt Stopped/Never Started lancets 28 gauge (FreeStyle #300 ea 11/03/24 04/20/25 Rx Lancets) Held on 04/20/25. Instructions: Pt Stopped/Never Started ondansetron 8 mg disintegrating 8 mg PO Q8H PRN PRN nausea and 12/04/24 04/20/25 Rx tablet vomiting #90 tabs methenamine hippurate 1 gram tablet 1 g PO BID #180 tab-caps 03/23/25 04/20/25 Rx lorazepam 1 mg tablet See Rx Instructions PO Q4H PRN 04/09/25 04/20/25 Rx anxiety #6 tabs morphine concentrate 100 mg/5 mL See Rx Instructions PO Q1H PRN 04/09/25 04/20/25 Rx (20 mg/mL) oral solution pain or dyspnea #30 mL fentanyl 12 mcg/hr transdermal 1 patch transdermal Q72H #5 ea 04/16/25 04/20/25 Rx patch lactulose 10 gram/15 mL oral 15 - 30 ml PO TID PRN 04/17/25 04/20/25 Rx solution encephalopathy #473 mL Exam Narrative Exam Narrative: General: older adult female lying in hospital bed; no grimace, groan or furrowed brow HEENT: normocephalic, atraumatic, hearing grossly WNL, MMM Resp: normal resp effort, speech limited to 2-5 words; no audible wheeze, no cough; ausc limited to ant/lateral, diminished at bases, clear Card: RRR GI: hypoactive but active in all quadrants Ext: trace pedal edema R>L; DP 2+ bilat Psych: makes appropriate eye contact, guarded/confused, unable to answer questions; did receive morphine prior to exam Results Last Vital Signs Temp 98.4 F 04/20/25 11:53 Pulse 94 H 04/20/25 11:53 Resp 22 04/20/25 11:53 BP 160/65 H 04/20/25 11:53 Pulse Ox 96 04/20/25 11:53 VTE Prohylaxis Risk Level: Moderate/High Risk Contraindications: None Prophylaxis: Patient ambulatory (on hospice) Time Spent Time spent with Patient: <40 minutes Time was spent: preparing to see the patient(eg.review tests), obtaining and/or reviewing separately otained hiistory, ordering medications,tests, procedures, referring, communicating with other health personal care home administrator, counseling the patient and care coordination
--- NOTE | 2025-04-20 14:34 | PHA.REVIEW2 ---
Pharmacy Admission Review Admission Clinical Review Admission Pharmacy Review: Hospice care patient (Acute) Advance care planning (Acute) Abdominal pain (Acute) Nausea & vomiting (Acute) Memory changes (Acute) Mass, brain (Acute) Adenocarcinoma of pancreas (Acute) ibuprofen Adverse Reaction (Mild, Verified 04/07/25 12:48) Stomach cramps Resuscitation Status DNR/DNI Height 5 ft 3 in Weight 59.1 kg Comments Comments/Follow Ups: Symptom management Pharmacy Admission Review Renal Dosing Medications needing adjustments: Reviewed (CrCl 41.14 mL/min) List of meds needing interventions: Current medications are okay Anticoagulation DVT Prophylaxis: N/A (Hospice patient) Opiate Usage Evaluate Pain Scale/Pains Meds: Intervened (morphine IV q1h PRN - 4mg/24hrs, morphine oral concentrate q1h PRN - no doses given, fentanyl 12mcg patch - confirmed with nurse last patch applied yesterday by hospice) Scheduled Bowel Reg ordered if on Opiates?: No (PRN Miralax and senna) Relevant Labs Electrolytes, C-Reactive P, ESR: N/A (No labs) DM Control DM Control: Reviewed Insulin Dosing, Diabetic Medication: No meds ordered - insulin on home med list states patient no longer taking Cardiac Review BP, HR, EF%: Reviewed (BP 160/65, HR 94) QTc Review QTc: Reviewed (425 from 02/26/25) IV to PO Switch IV Medications: Reviewed Home Meds Home Med List reviewed: Reviewed Relevent Home Meds Not ordered & why?: celecoxib, clonazepam (has order for lorazepam), insulin (listed as not taking on home med list) and methenamine Current Meds Current Medication Order Review: Intervened Comments: Added 2nd PRN to morphine order per pharmacy protocol Comments Comments/Follow Ups: Symptom management
--- NOTE | 2025-04-20 16:28 | W.PC.ACHO ---
Registration Status: ADM IN Primary Language: Preferred Language: Spanish Medical / Surgical History (Last Reviewed 04/20/25 @ 13:33 by Krysten Jarquin NP) Kidney stone Calculus of left ureter Anxiety Thrombocytopenia Nuclear age-related cataract, left eye Ingrown nail Osteoporosis Insomnia Hematuria Right hip pain (03/27/17) Hypercholesterolemia Generalized osteoarthrosis Ingrowing toenail (04/14/14) Hematuria Fatigue Ingrown toenail Urinary tract infectious disease (Last Reviewed 04/20/25 @ 13:33 by Krysten Jarquin NP) Nuclear age-related cataract, right eye History of cataract surgery History of bladder repair surgery Status post laparoscopic hysterectomy H/O bladder repair surgery S/P laparoscopic hysterectomy Hysterectomy, Laproscopic (~1983) Bladder Surgery (~1999) Most Recent Vital Signs Temperature 36.9 C 04/20/25 11:53 Pulse 94 H 04/20/25 11:53 Pulse Rhythm Regular 04/20/25 11:53 Respiratory Rate 22 04/20/25 11:53 Respiratory Effort Normal, Non-Labored 04/20/25 11:53 Respiratory Depth Normal 04/20/25 11:53 Respiratory Pattern Normal 04/20/25 11:53 Blood Pressure 160/65 H 04/20/25 11:53 Pulse Oximetry 96 04/20/25 11:53 Oxygen Delivery Method Room Air 04/20/25 11:53 Oxygen Flow Rate 0 04/20/25 11:53 Pain Level 8 04/20/25 12:42 Allergies ibuprofen Adverse Reaction (Mild, Verified 04/07/25 12:48) Stomach cramps Active Medications Generic Name Dose Route Start Last Admin Trade Name Freq PRN Reason Stop Dose Admin Lorazepam 0.5 - 1 mg 04/20/25 12:07 04/20/25 13:25 Lorazepam 2 Mg/Ml Vial IV/SC 0.5 mg Q1H PRN PRN Administration Ondansetron HCl 4 mg 04/20/25 12:07 04/20/25 12:41 Ondansetron 4 Mg/2 Ml Vial IVP 4 mg Q6H PRN PRN Administration IV IV Catheter Type [Right Wrist] Saline Lock IV Catheter Gauge [Right Wrist 22 ] Diet Orders Category Date Time Status DIET [Regular/Normal] [DIET] Nutrition 04/20/25 Dinner Active Intake and Output - 24 Hour Total 04/20/25 thru 04/20/25 16:03 Output Total 100 Balance -100 Weight 59.1 kg Output: Urine 100 Other: Urine Color Dark Jodie Urine Appearance Clear Urine Odor [place] Risk Assessment History of Falls Previous History 04/20/25 11:53 Contributing Factors No Factors 04/20/25 11:53 Ambulatory Aids Uses ambulatory device 04/20/25 11:53 Tubes/Lines None 04/20/25 11:53 Gait Evaluation No gait disturbance 04/20/25 11:53 Cognition No cognitive impairment 04/20/25 11:53 Fall Total Score 30 04/20/25 11:53 Level of Risk Moderate Risk 04/20/25 11:53 Problems (Last Reviewed 04/20/25 @ 13:33 by Krysten Jarquin NP) Hospice care patient (Acute) 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 Additional Patient Information/Comments: Pt is direct admit at 1118. Dx of pancreatic cancer, N/V, and post paracentesis where they removed around 5 L. Report Received From: Nurse and NUTRITIONAL SERVICES COOK from Dr. Munoz's office.
[2025-04-20] MEDS: QUEtiapine 50 MG TAB PO (19:54)
[2025-04-20] MEDS: Normal Saline Flush 10 ML SYR IVP (19:56)
[2025-04-20 20:15] VITALS: BP 134/75; PULSE 90; RESP 14; TEMP 37.1; O2SAT 91
[2025-04-21] MEDS: Polyethylene Glycol 3350 17 GM PACKET PO (09:06)
[2025-04-21] MEDS: Normal Saline Flush 10 ML SYR IVP ×3 (09:06→23:56)
[2025-04-21] MEDS: Ondansetron 4 MG/2 ML VIAL IVP ×2 (09:06→14:59)
[2025-04-21 10:40] VITALS: PULSE 91; O2SAT 92
[2025-04-21] MEDS: MORPHine 10 MG/ML VIAL IV/SC ×2 (10:40→15:18)
[2025-04-21] MEDS: LORazepam 2 MG/ML VIAL IV/SC (10:41)
[2025-04-21] MEDS: Scopolamine 1 MG/3 DAYS PATCH TD (12:32)
--- NOTE | 2025-04-21 14:51 | PGE_ITS ---
Date of Service Date of service: 04/21/25 Time of Service: 14:51 Assessment and Plan Assessment and plan (1) Hospice care patient: Status: Acute Assessment and plan: Tina remains on hospice Sx management. Her pain is not controlled despite adding a fentanyl patch. She is still requiring IV morphine PRN and IV zofran. The IV zofran q6h is not controlling the nausea. The frequency is adjusted to q4h PRN today and IV compazine is added as well. She has only been taking bites of soft foods but remains nauseated. She has not vomited today. She is weak and fatigued. She is only getting OOB to the [facility] with assistance. per her AD her preference is to remain home as long as possible, okay w/hospitalization for sxs management; appropriate to maintain goal for discharge back home once symptoms controlled; anticipate /caregiver will need extensive education regarding medication management. Due to her Sx not being controlled at this time, she will remain at the hospital for Hospice Sx management. 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 Continue fentanyl 12mcg/hr TD patch Continue morphine 2-4mg IVP q1h PRN (5) Nausea & vomiting: Status: Acute Assessment and plan: As above, not controlled. (6) Memory changes: Status: Acute (7) Anxiety: Assessment and plan: lorazepam 0.5-1mg q4h IVP PRN (8) Mass, brain: Status: Acute Assessment and plan: w/new onset confusion reported - haldol PRN Subjective Subjective Interval history since last seen: Tina was seen in her hospital room. She is currently admitted for hospice Sx management for intractable N/V. Her nausea is not controlled yet. Her nurse reports that she has been giving her medications in an attempt to relieve her nausea all day. She has not vomited today. She was vomiting when she presented yesterday. She has received zofran, lorazepam and has scop patch in place. IV compazine added today. She also has back pain and abd discomfort and has required morphine. She reported pain at the time of the visit and received a dose of morphine. She has received 8 mg of IV Morphine since she was admitted yesterday. This is in addition to the 12 mcg/hr fentanyl patch. Her PO intake is very limited. She has taken a few bites of soft foods. She is sipping on water. She has not had a BM in 1 week or so. She is weak and is only getting OOB to transfer to [facility] with assistance. She has decreased urinary output and her urine is dark. She does not have any skin breakdown. Her reported to nursing that she has been bed bound x2 weeks at home with minimal PO intake. Exam Narrative Exam Narrative: General: pleasant, thin, chronically ill appearing woman, lying in bed, with eyes closed. She did not appear to be comfortable. She appears fatigued. HEENT: atraumatic, eyes closed for most of the visit. Neck: supple Cardiovascular: HRR, nontachycardic Respiratory: lungs sound clear on anterior and lateral exam GI: +BS, abd soft, +tender on palpation Ext: moves all 4 extremities freely, pitting edema to BLEs R>L Objective Last Vital Signs Temp 37.1 C 04/20/25 20:15 Pulse 91 H 04/21/25 10:40 Resp 14 04/20/25 20:15 BP 134/75 04/20/25 20:15 Pulse Ox 92 04/21/25 10:40 VTE Prohylaxis Risk Level: Moderate/High Risk Contraindications: None Prophylaxis: Patient ambulatory (on hospice) Time Spent with Patient Time Spent with Patient: >50 minutes Time was spent: preparing to see the patient(eg.review tests), obtaining and/or reviewing separately otained hiistory, ordering medications,tests, procedures, referring, communicating with other health primary care provider, counseling the patient and care coordination
--- NOTE | 2025-04-21 15:06 | CHAPLAIN ---
Tina is a hospice patient with pancreatic cancer, here for symptom management. Tina said she had two gallons of fluids drained off her in an OR procedure yesterday and then had a lot of vomiting. She hasn't felt like eating much but asked for some chocolate ice cream. Her was with her for part of our visit. He said he is keeping in touch with their two sons, one in [place] and one in [place], [place], and her two brothers. Tina was an active member of the [employer] in [place], but hasn't been able to attend because her medical issues. The rastafarian knows she is here. I will continue to visit.
--- NOTE | 2025-04-21 19:49 | CMPROGNOTE_ITS ---
Date of service: 04/21/25 Time of Service: 19:49 Care Management Progress Note Progress Note Text Progress Note Text: Tina was lying in bed sleeping when CM visited with her; CM attempted to let her sleep, but she woke up while CM was in the room. She was pleasant and engaged minimally, stating that she needed a sip of water. While taking a sip of water, some spilled onto her gown. She stated that her didn't visit today because she was not feeling well and wasn't up to visitors. She stated that she was cold due to the water being spilled on her gown; CM found staff to help her change into a clean gown. Tina is admitted for hospice symptom managem ent, and will return home into the care of her , Raman, once her symptoms are well controlled. She will likely require EMS transport, as per report she has been bed bound at home for about two weeks. No concerns noted from hospice at this time. CM will continue to follow. Discharge Potential Discharge Needs: Other (resumption of hospice care at home) Anticipated Barriers to Discharge: Medical Status Patient/Family Education Needs: Review discharge instructions, discuss Ask Me T hree Transportation: EMS Plan: Tina is admitted for hospice symptom management. Her is her full time staff interpreter caregiver at home. She will return home once her symptoms are well controlled. She will transport via EMS due to bed bound status. Hospice services will resume in the community, once she is home. CM will continue to follow. Social Determinants of Health Screening Social Determinants of health last assessed in clinic: 04/21/25 Will the Patient Participate in the Screening?: Yes Do you worry about having a steady place to live?: no Problems where you live: no known problems In the past 12 months, have you had to go without electric, gas, oil or water in your home?: no 1. Within the past 12 months, we worried whether our food would run out before we got money to buy more.: Don't know/refused 2. Within the past 12 months, the food we bought just didn't last and we didn't have money to get more.: Don't know/refused Has lack of transportation kept you from medical appointments or from doing things needed for daily living?: no Has anyone in your life made you feel unsafe or unsupported?: no How hard is it for you to pay for the very basics like food, housing, medical care, and heating? Would you say it is:: Not hard at all Do you want help finding or keeping work or a job?: I do not need or want help If for any reason you need help with day-to-day activities such as bathing, preparing meals, shopping, managing finances, etc., do you get the help you need?: I get all the help I need How often do you feel lonely or isolated from those around you?: Never Do you speak a language other than Tunisian at home?: No Does the patient want assistance with any of the above?: No Comments: Hospice and caregivers in place. Nurses on weekend and caregiver five days during the week.
[2025-04-21] MEDS: MORPHine 2 MG/ML SYR IV/SC (23:55)
[2025-04-21] MEDS: LORazepam 1 MG TAB PO (23:56)
[2025-04-22] MEDS: Creon, Lipase 24,000 CAPCR 1 CAP PO ×2 (08:53→12:12)
[2025-04-22] MEDS: fentaNYL 12 MCG PATCH TD (08:53)
--- NOTE | 2025-04-22 09:48 | CMPROGNOTE_ITS ---
Date of service: 04/22/25 Time of Service: 09:52 Care Management Progress Note Progress Note Text Progress Note Text: Tina remains admitted for hospice symptom management with the goal of returning home; She will discharge today. Per report, she is doing well today and is tolerating oral intake, including water. Per RN, Tina is denying pain and nausea. The patient may be discharged once she is able to consistently tolerate oral intake. cage operator has expressed concern regarding bowel status; CM recommended that this be addressed directly with the hospice provider. Transportation at discharge will be coordinated by hospice. Nursing is aware to update hospice as appropriate regarding the patient?s oral intake. CM will continue to follow. Tina is being discharged home today and will transport home by EMS. Discharge Potential Discharge Needs: Other (resumption of hospice care at home) Anticipated Barriers to Discharge: Medical Status Patient/Family Education Needs: Review discharge instructions, discuss Ask Me Three Transportation: EMS Plan: Tina is admitted for hospice symptom management. Her is her radio time buyer caregiver at home. She will return home once her symptoms are well controlled. She will transport via EMS due to bed bound status. Hospice services will resume in the community, once she is home. CM will continue to follow. Social Determinants of Health Screening Social Determinants of health last assessed in clinic: 04/22/25 Will the Patient Participate in the Screening?: Yes Do you worry about having a steady place to live?: no Problems where you live: no known problems In the past 12 months, have you had to go without electric, gas, oil or water in your home?: no 1. Within the past 12 months, we worried whether our food would run out before we got money to buy more.: Don't know/refused 2. Within the past 12 months, the food we bought just didn't last and we didn't have money to get more.: Don't know/refused Has lack of transportation kept you from medical appointments or from doing things needed for daily living?: no Has anyone in your life made you feel unsafe or unsupported?: no How hard is it for you to pay for the very basics like food, housing, medical care, and heating? Would you say it is:: Not hard at all Do you want help finding or keeping work or a job?: I do not need or want help If for any reason you need help with day-to-day activities such as bathing, preparing meals, shopping, managing finances, etc., do you get the help you need?: I get all the help I need How often do you feel lonely or isolated from those around you?: Never Do you speak a language other than [place] at home?: No Does the patient want assistance with any of the above?: No Comments: Hospice and caregivers in place. Nurses on weekend and caregiver five days during the week.
[2025-04-22] MEDS: Lactulose 20 GM/30 ML CUP 15 GM PO (12:13)
[2025-04-22] MEDS: Bisacodyl 10 MG SUPP PR (14:10)
[2025-04-22] MEDS: MORPHine Oral Solution 10 MG/5 ML CUP PO (14:20)
[2025-04-22] MEDS: Ondansetron O.D.T. 4 MG TABEF PO (14:28)
--- NOTE | 2025-04-23 14:33 | DSE_ITS ---
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: Status: Chronic (3) Abdominal ascites: Status: Chronic (4) Abdominal pain: Status: Resolved (5) Nausea & vomiting: Status: Resolved (6) Memory changes: Status: Acute (7) Anxiety: (8) Mass, brain: Status: Acute Discharge Plan Disposition Patient Disposition: Home W/Hospice Services Condition: Fair Discharge Details Reason For Visit: Pancreatic Cancer Admit Date/Time: 04/20/25 13:22 Admit Provider: Santi Munoz Attending Provider: Suzy Gentile Primary Care Provider: Sarah Weldon [facility] Hospital Course: Tina is a pleasant, 80 year old female who is on hospice for pancreatic cancer who went for paracentesis 2 days ago with 4.5 L withdrawn. She had severe N/V/pain and required admission for Sx management. She required the addition of Fentanyl patch and PRN morphine to control her pain. She required the addition of scop patch and IV zofran to control her nausea. She took very little by mouth. She is weak and only getting OOB to [facility] with assistance. She is discharged home today pending tolerating PO without return of Sx. She will require lift assist at home. Hospice services to be resumed at home. Home Meds and New Rx's Prescriptions: New scopolamine base 1 mg over 3 days Patch 3 Day 1 mg transdermal Q72H PRN (Reason: nausea) Qty: 5 0RF Continued ondansetron 8 mg tablet,disintegrating 8 mg PO Q8H PRN PRN (Reason: nausea and vomiting) Qty: 90 5RF Rx Instructions: may take every am to PREVENT nausea and 2 additional times daily if needed mirabegron [Myrbetriq] 50 mg tablet extended release 24 hr 50 mg PO DAILY Qty: 90 4RF (DME) blood-glucose meter [FreeStyle Lite Meter] Kit See Rx Instructions .Route Qty: 1 0RF Rx Instructions: 3 times daily testing E11.9 Creon 24,000-76,000 -120,000 unit capsule,delayed release(DR/EC) 1 cap PO TID Qty: 270 4RF Rx Instructions: administer with meals and/or snacks Ordered by Opal Ontiveros steam shovelman at [facility] annie Wilder. 05/29/23. -hb quetiapine 50 mg tablet 50 mg PO BID Qty: 180 5RF (DME) pen needle, diabetic [BD Ultra-Fine Mini Pen Needle] 31 gauge x 3/16 needle See Rx Instructions .ROUTE .MEDSUPPLY Qty: 200 4RF Rx Instructions: use one BID E11.9 clonazepam 0.5 mg tablet 0.5 mg PO BID Qty: 180 3RF (DME) lancets [FreeStyle Lancets] 28 gauge misc See Rx Instructions .ROUTE .MEDSUPPLY Qty: 300 5RF Rx Instructions: 3 times daily testing E11.9 (DME) FreeStyle Test Strip See Rx Instructions .Route Qty: 300 4RF Rx Instructions: 3 times daily E11.9 methenamine hippurate 1 gram tablet 1 g PO BID Qty: 180 3RF morphine concentrate 100 mg/5 mL (20 mg/mL) solution See Rx Instructions PO Q1H PRN MDD 24 ml Qty: 30 0RF Rx Instructions: 0.25-1.0 orally every 1 hour, as needed; HOSPICE lorazepam 1 mg tablet See Rx Instructions PO Q4H PRN (Reason: anxiety) Qty: 6 5RF Rx Instructions: 0.5-1.0 orally every 4 hours PRN; HOSPICE fentanyl 12 mcg/hr patch 72 hour 1 patch transdermal Q72H MDD 24 mcg Qty: 5 0RF Rx Instructions: hospice if one patch insufficient, may add second patch after 24 hrs lactulose 10 gram/15 mL solution 15 - 30 ml PO TID PRN (Reason: encephalopathy) Qty: 473 4RF Rx Instructions: hospice Discontinued celecoxib 100 mg capsule 100 mg PO BID Qty: 180 2RF Discharge Instructions Instructions: Palliative Care Stand Alone Forms: Portal Information, Nursing Discharge Form Activity:: Activity as Tolerated Equipment/Supplies:: No Equipment Needed Diet:: As Tolerated Discharge Orders Discharge Orders: Discharge Order (Routine); Ordered 04/22/25 Ordered By: Rosalinda Grullon Discharge Data Discharge Date/Time-TO BE ENTERED AT DEPARTURE: 04/22/25 15:04 DS: Summary Time Spent with Patient providing and/or coordinating discharge services: Greater than 30 minutes Status at Discharge Functional status at discharge: wheelchair bound Overall status at discharge: patient is progressing back to baseline Mental Status: mental status grossly normal Speech and Movement: speech and movement normal Mood: congruent mood Affect: normal affect Quality:SDOH Health Related Social Needs: Health related social needs material hardship educatio n Health related social needs details pt has caregiver c ome in 3 x /week Exam Narrative Exam Narrative: General: pleasant, thin, chronically ill appearing woman, lying in bed, with eyes closed. She opened eyes to verbal stimuli, in NAD. She appears fatigued. HEENT: atraumatic, makes eye contact, mm slightly dry Neck: supple Cardiovascular: HRR, nontachycardic Respiratory: lungs sound clear on anterior and lateral exam GI: +BS, abd soft, +tender on palpation Ext: moves all 4 extremities freely, pitting edema to BLEs R>L Psych Mental Status: mental status grossly normal Speech and Movement: speech and movement normal Mood: congruent mood Affect: normal affect DS: Data Vitals/I&O Vitals and I&O: Vital Signs Temperature 37.1 C 04/20/25 20:15 Temperature Source Temporal Artery Scan 04/20/25 20:15 Pulse 91 H 04/21/25 10:40 Pulse Rhythm Regular 04/20/25 11:53 Respiratory Rate 14 04/20/25 20:15 Respiratory Effort Normal, Non-Labored 04/20/25 11:53 Respiratory Depth Normal 04/20/25 11:53 Respiratory Pattern Normal 04/20/25 11:53 Blood Pressure 134/75 04/20/25 20:15 Blood Pressure Mean 94 04/20/25 20:15 Pulse Oximetry 92 04/21/25 10:40 Oxygen Delivery Method Room Air 04/21/25 10:40 Oxygen Flow Rate 0 04/21/25 10:40 Pain Level 6 04/21/25 15:18 Comment per nurse request 04/20/25 20:15 PFSH All Active Problems Hospice care patient (Acute) Acute cholangitis (Acute) Jaundice (Acute) 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 mets Adenocarcinoma of pancreas (Acute) bx 03/29 at [facility] Hypertension (Chronic) Acute on chronic anemia (Acute) Liver failure, acute (Acute) Hyperbilirubinemia (Acute) Jaundice (Acute) Diverticulosis of colon without diverticulitis (Chronic) Lichen planus (Chronic) mouth OAB (overactive bladder) (Acute) Medical History Kidney stone Calculus of left ureter Anxiety chronic benzodiazipine use 03/27/17 FLOR-7 SCORE=7 07/02/17 FLOR-7 SCORE=13 Thrombocytopenia Nuclear age-related cataract, left eye Ingrown nail Osteoporosis Insomnia Hematuria Neg work-up 2013. UA not meeting RBC in years since for repeat Right hip pain (03/27/17) Hypercholesterolemia Generalized osteoarthrosis low back pain; xray + DJD Ingrowing toenail (04/14/14) Hematuria unspeficified; asymptomatic; neg W/U Fatigue 06/26/12 Ingrown toenail 04/14/14 Urinary tract infectious disease recurrent Surgical History Nuclear age-related cataract, right eye History of cataract surgery History of bladder repair surgery Status post laparoscopic hysterectomy H/O bladder repair surgery sling S/P laparoscopic hysterectomy 05/07/83 partial, dysmenorrhea Hysterectomy, Laproscopic (~1983) partial; dysmenorrhea Bladder Surgery (~1999) SLING Family History Mother , age 92 Dementia Father , age 78 Cancer Brother Asthma Brother ALS (amyotrophic lateral sclerosis) Brother No problems noted. Maternal Grandfather , age 50 Black lung disease Paternal Grandfather , age 65 Black lung disease Maternal Grandmother , age 80 No problems noted. Paternal Grandmother , age 84 No problems noted. Son No problems noted. Son No problems noted. Social History (Reviewed 04/23/25 @ 14:35 by MARSHALL Dill Smoking/Tobacco Use Status: Former Tobacco Use tobacco type: cigarettes Quit Da te: 05/07/97 Tobacco: How many years used: 15 Second Hand Exposure: Yes Smoking risk assessment performed?: Yes Alcohol Intake: current Alcohol Intake frequency: holidays/special occasions only Drug use: Never Substance use type: does not use Adopted: No Household members: spouse Housing: house Number of Children: 2 number of grandchildren: 4 Communication Needs: None Education Level: college Details: A.S. 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 Pets and animals: No Sexually active: No Do you think of yourself as: straight/heterosexual Current gender identity: female What is your relationship status?: How often do you talk on the phone with friends or family?: three or more times per week How often do you get together with friends or relatives?: decline to answer How often do you attend jehovah's witness or tenriism services?: 4 or more times per year Do you belong to any clubs or organized social groups?: yes Panel score (0-1 are the most socially isolated patients): 4 What type of physical activity do you participate in: walking, aerobic, bicycling and swimming Duration: 30-45 minutes/day Frequency: 3-4 times per week Lorraine/Scientologist: Catholic Special lorraine needs: No Seatbelt use: always Helmet use: Yes Helmet use: always Drive intox or ride w/intox solo truck driver: No Firearms in home: Yes Do you feel safe at home: Yes Do you feel safe in your relationship?: Yes Victim of physical abuse: No Victim of emotional abuse: No Victim of sexual abuse: No Would you like helpful sources: No Additional Social history: lives with of 59 years [place] in [place] Time Spent with Patient Time Spent with Patient: <45 minutes Time was spent: preparing to see the patient(eg.review tests), obtaining and/or reviewing separately otained hiistory, ordering medications,tests, procedures, referring, communicating with other health director of home care hospice, counseling the patient and care coordination
== END 2025-04-22 15:04 | disposition hospice, home (50) | DRG 436 ==
PROVIDERS: Admitting Provider Surgery; PCP Family Medicine; Visit Provider Family Medicine
DX: C25.9 Malignant neoplasm of pancreas, unspecified (principal); C77.2 Secondary and unspecified malignant neoplasm of intra-abdominal lymph nodes; R18.0 Malignant ascites; Z51.5 Encounter for palliative care; R10.9 Unspecified abdominal pain; R41.3 Other amnesia; R11.2 Nausea with vomiting, unspecified; F41.9 Anxiety disorder, unspecified; G93.89 Other specified disorders of brain; E11.40 Type 2 diabetes mellitus with diabetic neuropathy, unspecified; E11.44 Type 2 diabetes mellitus with diabetic amyotrophy; M21.372 Foot drop, left foot; M54.16 Radiculopathy, lumbar region; K57.30 Diverticulosis of large intestine without perforation or abscess without bleeding; D69.6 Thrombocytopenia, unspecified; M81.0 Age-related osteoporosis without current pathological fracture; G47.00 Insomnia, unspecified; M15.9 Polyosteoarthritis, unspecified; E78.00 Pure hypercholesterolemia, unspecified; Z79.899 Other long term (current) drug therapy; Z74.01 Bed confinement status
CPT/HCPCS: 00123; J2060; J2270; J2405

== ENCOUNTER 2025-04-26 11:44 | Inpatient (IN) | payer OTHER, SELFPAY ==
--- NOTE | 2025-04-26 11:37 | W.ED.GENAD ---
Discharge Plan Disposition Patient Disposition: Admit to [facility] Discharge Details Clinical Impression: Admission for palliative care, Nausea Admit Date/Time: 04/26/25 12:43 Admit Provider: Suzy Gentile Attending Provider: Suzy Gentile Primary Care Provider: Sarah Weldon ED Provider: Yugn Andrew [facility] General Date/Time Provider Initiated Documentation: 04/26/25 11:48. HPI Narrative: MDM This is an elderly normotensive and not tachycardic DNI DNR female with outpatient hospice and advancing needs for which patient will receive inpatient hospitalization. I was in touch with Krysten Jarquin who graciously agreed to accept the patient for hospitalization. IV was placed in the ED and patient received ondansetron 4 symptomatic management. She was not having any pain. She was in no acute distress. In line with her wishes I did not pursue laboratory evaluation nor any imaging. Patient was not requiring supplemental oxygen in the ED. HPI Patient arrives via EMS. Patient is a hospice patient. Family is reportedly unable to care for the patient. She was hypoxic with EMS and was diverted to the ED from original plan for direct hospitalization. She offers no complaints. Exam General: Elderly-appearing in no acute distress speaking in complete sentences. Head: Normocephalic, atraumatic. Eye: Extraocular eye movements intact. No conjunctival injection. No scleral icterus. Ear, nose, mouth, throat: Grossly normal inspection. Normal voice, handling secretions normally. Neck: Trachea midline. Cardiovascular: Well-perfused distal extremities. Respiratory: Nonlabored respiration. Gastrointestinal: Nondistended abdomen. Musculoskeletal: Moving all 4 extremities spontaneously. Skin: Normal for age and race, grossly normal temperature and turgor. No acute rash. Neurologic: Alert to person and place but not time. Related Data Home Medications ?Medication ?Instructions ?Recorded ?Confirmed blood-glucose meter (FreeStyle #1 ea 04/03/23 04/26/25 Lite Meter kit) Creon 24,000-76,000-120,000 unit 1 cap PO TID #270 caps 05/30/23 04/26/25 capsule,delayed release (qkcyyz-elgumemk-qmtwxvu (pork)) quetiapine 50 mg tablet 50 mg PO BID #180 tabs 06/13/24 04/26/25 pen needle, diabetic 31 gauge x #200 ea 06/18/24 04/26/2516 (BD Ultra-Fine Mini Pen Needle) mirabegron 50 mg tablet,extended 50 mg PO DAILY #90 tabs 09/17/24 04/26/25 release 24 hr (Myrbetriq) clonazepam 0.5 mg tablet 0.5 mg PO BID #180 tab-caps 09/22/24 04/26/25 blood sugar diagnostic (FreeStyle #300 ea 11/03/24 04/26/25 Test strips) lancets 28 gauge (FreeStyle #300 ea 11/03/24 04/26/25 Lancets) ondansetron 8 mg disintegrating 8 mg PO Q8H PRN PRN nausea and 12/04/24 04/26/25 tablet vomiting #90 tabs methenamine hippurate 1 gram tablet 1 g PO BID #180 tab-caps 03/23/25 04/26/25 lorazepam 1 mg tablet See Rx Instructions PO Q4H PRN 04/09/25 04/26/25 anxiety #6 tabs morphine concentrate 100 mg/5 mL See Rx Instructions PO Q1H PRN 04/09/25 04/26/25 (20 mg/mL) oral solution pain or dyspnea #30 mL fentanyl 12 mcg/hr transdermal 1 patch transdermal Q72H #5 ea 04/16/25 04/26/25 patch lactulose 10 gram/15 mL oral 15 - 30 ml PO TID PRN 04/17/25 04/26/25 solution encephalopathy #473 mL scopolamine base 1 mg over 3 days 1 mg transdermal Q72H PRN nausea 04/22/25 04/26/25 transdermal patch #5 ea Previous Rx's ?Medication ?Instructions ?Recorded blood-glucose meter (FreeStyle #1 ea 04/03/23 Lite Meter kit) Creon 24,000-76,000-120,000 unit 1 cap PO TID #270 caps 05/30/23 capsule,delayed release (dgjozf-ghxpvyyc-frwxrwh (pork)) quetiapine 50 mg tablet 50 mg PO BID #180 tabs 06/13/24 pen needle, diabetic 31 gauge x #200 ea 06/18/2407/20 (BD Ultra-Fine Mini Pen Needle) mirabegron 50 mg tablet,extended 50 mg PO DAILY #90 tabs 09/17/24 release 24 hr (Myrbetriq) clonazepam 0.5 mg tablet 0.5 mg PO BID #180 tab-caps 09/22/24 blood sugar diagnostic (FreeStyle #300 ea 11/03/24 Test strips) lancets 28 gauge (FreeStyle #300 ea 11/03/24 Lancets) ondansetron 8 mg disintegrating 8 mg PO Q8H PRN PRN nausea and 12/04/24 tablet vomiting #90 tabs methenamine hippurate 1 gram tablet 1 g PO BID #180 tab-caps 03/23/25 lorazepam 1 mg tablet See Rx Instructions PO Q4H PRN 04/09/25 anxiety #6 tabs morphine concentrate 100 mg/5 mL See Rx Instructions PO Q1H PRN 04/09/25 (20 mg/mL) oral solution pain or dyspnea #30 mL fentanyl 12 mcg/hr transdermal 1 patch transdermal Q72H #5 ea 04/16/25 patch lactulose 10 gram/15 mL oral 15 - 30 ml PO TID PRN 04/17/25 solution encephalopathy #473 mL scopolamine base 1 mg over 3 days 1 mg transdermal Q72H PRN nausea 04/22/25 transdermal patch #5 ea Allergies Allergy/AdvReac Type Severity Reaction Status Date / Time ibuprofen AdvReac Mild Stomach Verified 04/26/25 11:54 cramps General ANDER: 3 Medical Decision Making Quality:SDOH Health Related Social Needs: Health related social needs material hardship education Health related social needs details pt has caregiver come in 3 x /week PFSH All Active Problems Nausea (Acute) Admission for palliative care (Acute) Comfort measures only status (Acute) Confusion (Acute) Agitation (Acute) Cancer related pain (Acute) Hospice care patient (Acute) Acute cholangitis (Acute) Jaundice (Acute) 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 mets Adenocarcinoma of pancreas (Acute) bx 03/29 at [facility] Hypertension (Chronic) Acute on chronic anemia (Acute) Liver failure, acute (Acute) Hyperbilirubinemia (Acute) Jaundice (Acute) Diverticulosis of colon without diverticulitis (Chronic) Lichen planus (Chronic) mouth OAB (overactive bladder) (Acute) Medical History Kidney stone Calculus of left ureter Anxiety chronic benzodiazipine use 03/27/17 FLOR-7 SCORE=7 07/02/17 FLOR-7 SCORE=13 Thrombocytopenia Nuclear age-related cataract, left eye Ingrown nail Osteoporosis Insomnia Hematuria Neg work-up 2013. UA not meeting RBC in years since for repeat Right hip pain (03/27/17) Hypercholesterolemia Generalized osteoarthrosis low back pain; xray + DJD Ingrowing toenail (04/14/14) Hematuria unspeficified; asymptomatic; neg W/U Fatigue 06/26/12 Ingrown toenail 04/14/14 Urinary tract infectious disease recurrent Surgical History Nuclear age-related cataract, right eye History of cataract surgery History of bladder repair surgery Status post laparoscopic hysterectomy H/O bladder repair surgery sling S/P laparoscopic hysterectomy 05/07/83 partial, dysmenorrhea Hysterectomy, Laproscopic (~1983) partial; dysmenorrhea Bladder Surgery (~1999) SLING Family History Mother , age 92 Dementia Father , age 78 Cancer Brother Asthma Brother ALS (amyotrophic lateral sclerosis) Brother No problems noted. Maternal Grandfather , age 50 Black lung disease Paternal Grandfather , age 65 Black lung disease Maternal Grandmother , age 80 No problems noted. Paternal Grandmother , age 84 No problems noted. Son No problems noted. Son No problems noted. Social History Smoking/Tobacco Use Status: Former Tobacco Use tobacco type: cigarettes Quit Date: 05/07/97 Tobacco: How many years used: 15 Second Hand Exposure: Yes Smoking risk assessment performed?: Yes Alcohol Intake: current Alcohol Intake frequency: holidays/special occasions only Drug use: Never Substance use type: does not use Adopted: No Household members: spouse Housing: house Number of Children: 2 number of grandchildren: 4 Communication Needs: None Education Level: college Details: A.S. 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 Pets and animals: No Sexually active: No Do you think of yourself as: straight/heterosexual Current gender identity: female What is your relationship status?: How often do you talk on the phone with friends or family?: three or more times per week How often do you get together with friends or relatives?: decline to answer How often do you attend baptism or adventism services?: 4 or more times per year Do you belong to any clubs or organized social groups?: yes Panel score (0-1 are the most socially isolated patients): 4 What type of physical activity do you participate in: walking, aerobic, bicycling and swimming Duration: 30-45 minutes/day Frequency: 3-4 times per week Lorraine/Samaritan: Uatsdin Special lorraine needs: No Seatbelt use: always Helmet use: Yes Helmet use: always Drive intox or ride w/intox jitney driver: No Firearms in home: Yes Do you feel safe at home: Yes Do you feel safe in your relationship?: Yes Victim of physical abuse: No Victim of emotional abuse: No Victim of sexual abuse: No Would you like helpful sources: No Additional Social history: lives with of 59 years [place] in [place]
[2025-04-26 11:45] VITALS: BP 128/68; PULSE 91; RESP 16; O2SAT 93
[2025-04-26 11:48] VITALS: BP 128/68; PULSE 91; RESP 16; O2SAT 93
[2025-04-26] MEDS: Ondansetron 4 MG/2 ML VIAL IVP (12:02)
--- NOTE | 2025-04-26 12:19 | W.PM.HP.N ---
Date of service: 04/26/25 Time of Service: 12:19 Assessment and Plan Assessment and plan (1) Hospice care patient: Status: Acute Assessment and plan: Tina will be admitted to [facility] under HOSPICE for RESPITE for 5 days. During this time Hospice and family will work towards safe discharge planning. Tina?s overall goal is to remain comfortable. All medications should be administered oral/TD as tolerated, IV medications only as needed, w/goal of no IV medication requirements. Maintain IV access site at this time. Tina has had limited oral intake, including refusal of medications. She has been tolerating fluids best, however if specific foods requested she may try them for comfort, consider pre-medication. Tina has been trying to get out of bed w/some confusion/perseveration. She should be allowed to get up and out of bed as desired, with comfort as a goal. If she becomes agitated family prefers her to be medicated for comfort. Recommend bed alarm for safety. Tina's pain is relatively controlled, will increase fentanyl to 25mcg today. Current plan to provide respite and work w/family for placement in NH shelter. (2) Confusion: Status: Acute Assessment and plan: continue Seroquel and clonazepam PO as tolerated Haldol PRN (3) Cancer related pain: Status: Acute Assessment and plan: continue fentanyl patch, increased to 25mcg/hr morphine PO PRN will increase further based on morphine use (4) Nausea: Status: Acute Assessment and plan: continue scopolamine patch Zofran, Compazine, promethazine, lorazepam and haldol PO PRN IV Zofran if needed (5) Abdominal ascites: Status: Chronic Assessment and plan: paracentesis 04/20 - 4.5L drained Consider repeat paracentesis in next few days, will consider surgical consult tomorrow. (6) Malignant neoplasm of pancreas metastatic to intra-abdominal lymph node: Status: Chronic (7) Adenocarcinoma of pancreas: Status: Acute (8) Comfort measures only status: Status: Acute Assessment and plan: comfort medications ordered activity and diet as tolerated via patient comfort cart to be brought into room for this evening's visitors, recommend available in morning for additional family History of Present Illness Narrative: Mrs. Wilder is an 80 y/o F hospice patient presenting today for admission for HOSPICE RESPITE, per family request. Tina was recently hospitalized 2/2 uncontrolled pain and nausea/vomiting; she was discharged home 04/23. Tina's /caregiver Vinay unfortunately fell at home and is unable to safely care for her at home. Sons live out of town and unable to provide in home care, requesting urgent hospitalization. PO Intake: tolerating sips of fluids, pt reporting thirst and requesting/perseverating over this. No reported food intake. previously not tolerating food during recent hospitalization. - tolerating sips of apple sauce and yogurt intermittent - denies nausea currently Urine: family reporting frequent urgency to urinate, up to 6x in a row/perseverate only will urinate on last attempt. limited urine output - no current Chavez, family consents to insertion for safety and comfort GI: last known bowel . ascites fluid build-up returning, no where near what it was prior to paracentesis on 04/20, but getting bigger, more abdominal discomfort; Pain: pt often denying pain; last known fentanyl dose 12mcg, morphine 0.25mL TID PRN, using near daily; family consents to increase in patch - pt reports pain currently, mild; request pain medication Activity: two falls upon arrival home last week; frequently tries to get out of bed, unsteady, family fearful of falling; requires assistance; pt told nursing too weak to get out of bed w/o assistance; MH: worse overnight, perseverating as above; confusion. no reported agitation/anxiety Social: Vinay unable to care safely at home, sons splitting time at their homes and w/Vinay this evening; family all coming in, via flights, car, etc, first set to arrive late this afternoon to late overnight; plan to be here tomorrow for a visit Autonomy: requiring assistance w/all ADLs - Vinay had been caring at home for 2 years since diagnosis, over last 2 weeks things have become increasingly difficult, he is no longer able to safely provide her care ACP: family requesting urgent hospice respite admission or halfway placement. Need termination clerk plan, unable to provide maritime officer caregiving. CFL admission pending, denied acutely today. 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 mets Adenocarcinoma of pancreas (Acute) bx 03/29 at [facility] [place] Hypertension (Chronic) Acute on chronic anemia (Acute) Liver failure, acute (Acute) Hyperbilirubinemia (Acute) Jaundice (Acute) Diverticulosis of colon without diverticulitis (Chronic) Lichen planus (Chronic) mouth OAB (overactive bladder) (Acute) Medical History Kidney stone Calculus of left ureter Anxiety chronic benzodiazipine use 03/27/17 FLOR-7 SCORE=7 07/02/17 FLOR-7 SCORE=13 Thrombocytopenia Nuclear age-related cataract, left eye Ingrown nail Osteoporosis Insomnia Hematuria Neg work-up 2013. UA not meeting RBC in years since for repeat Right hip pain (03/27/17) Hypercholesterolemia Generalized osteoarthrosis low back pain; xray + DJD Ingrowing toenail (04/14/14) Hematuria unspeficified; asymptomatic; neg W/U Fatigue 06/26/12 Ingrown toenail 04/14/14 Urinary tract infectious disease recurrent Surgical History Nuclear age-related cataract, right eye History of cataract surgery History of bladder repair surgery Status post laparoscopic hysterectomy H/O bladder repair surgery sling S/P laparoscopic hysterectomy 05/07/83 partial, dysmenorrhea Hysterectomy, Laproscopic (~1983) partial; dysmenorrhea Bladder Surgery (~1999) SLING Family History Mother , age 92 Dementia Father , age 78 Cancer Brother Asthma Brother ALS (amyotrophic lateral sclerosis) Brother No problems noted. Maternal Grandfather , age 50 Black lung disease Paternal Grandfather , age 65 Black lung disease Maternal Grandmother , age 80 No problems noted. Paternal Grandmother , age 84 No problems noted. Son No problems noted. Son No problems noted. Social History Smoking/Tobacco Use Status: Former Tobacco Use tobacco type: cigarettes Quit Date: 05/07/97 Tobacco: How many years used: 15 Second Hand Exposure: Yes Smoking risk assessment performed?: Yes Alcohol Intake: current Alcohol Intake frequency: holidays/special occasions only Drug use: Never Substance use type: does not use Adopted: No Household members: spouse Housing: house Number of Children: 2 number of grandchildren: 4 Communication Needs: None Education Level: college Details: A.S. 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 Pets and animals: No Sexually active: No Do you think of yourself as: straight/heterosexual Current gender identity: female What is your relationship status?: How often do you talk on the phone with friends or family?: three or more times per week How often do you get together with friends or relatives?: decline to answer How often do you attend confucianism or religion services?: 4 or more times per year Do you belong to any clubs or organized social groups?: yes Panel score (0-1 are the most socially isolated patients): 4 What type of physical activity do you participate in: walking, aerobic, bicycling and swimming Duration: 30-45 minutes/day Frequency: 3-4 times per week Lorraine/Gnosticist: Muslim Special lorraine needs: No Seatbelt use: always Helmet use: Yes Helmet use: always Drive intox or ride w/intox taxi driver: No Firearms in home: Yes Do you feel safe at home: Yes Do you feel safe in your relationship?: Yes Victim of physical abuse: No Victim of emotional abuse: No Victim of sexual abuse: No Would you like helpful sources: No Additional Social history: lives with of 59 years [place] in [facility] Allergies and Home Medications Allergies Allergy/AdvReac Type Severity Reaction Status Date / Time ibuprofen AdvReac Mild Stomach Verified 04/26/25 11:54 cramps Home Medications ?Medication ?Instructions ?Recorded ?Confirmed ?Type blood-glucose meter (FreeStyle #1 ea 04/03/23 04/26/25 Rx Lite Meter kit) Creon 24,000-76,000-120,000 unit 1 cap PO TID #270 caps 05/30/23 04/26/25 Rx capsule,delayed release (pwprmv-iafdmyjs-jnlngsu (pork)) quetiapine 50 mg tablet 50 mg PO BID #180 tabs 06/13/24 04/26/25 Rx pen needle, diabetic 31 gauge x #200 ea 06/18/24 04/26/25 Rx 3/16 (BD Ultra-Fine Mini Pen Needle) mirabegron 50 mg tablet,extended 50 mg PO DAILY #90 tabs 09/17/24 04/26/25 Rx release 24 hr (Myrbetriq) clonazepam 0.5 mg tablet 0.5 mg PO BID #180 tab-caps 09/22/24 04/26/25 Rx blood sugar diagnostic (FreeStyle #300 ea 11/03/24 04/26/25 Rx Test strips) lancets 28 gauge (FreeStyle #300 ea 11/03/24 04/26/25 Rx Lancets) ondansetron 8 mg disintegrating 8 mg PO Q8H PRN PRN nausea and 12/04/24 04/26/25 Rx tablet vomiting #90 tabs methenamine hippurate 1 gram tablet 1 g PO BID #180 tab-caps 03/23/25 04/26/25 Rx lorazepam 1 mg tablet See Rx Instructions PO Q4H PRN 04/09/25 04/26/25 Rx anxiety #6 tabs morphine concentrate 100 mg/5 mL See Rx Instructions PO Q1H PRN 04/09/25 04/26/25 Rx (20 mg/mL) oral solution pain or dyspnea #30 mL fentanyl 12 mcg/hr transdermal 1 patch transdermal Q72H #5 ea 04/16/25 04/26/25 Rx patch lactulose 10 gram/15 mL oral 15 - 30 ml PO TID PRN 04/17/25 04/26/25 Rx solution encephalopathy #473 mL scopolamine base 1 mg over 3 days 1 mg transdermal Q72H PRN nausea 04/22/25 04/26/25 Rx transdermal patch #5 ea Exam Narrative Exam Narrative: General: older adult female lying in hospital bed; no grimace, groan or furrowed brow; AAOx2, eyes remained closed throughout majority of visit, nods intermittently HEENT: normocephalic, atraumatic, hearing grossly WNL, dry MM Resp: normal resp effort, speech limited to 2-5 words; no audible wheeze, no cough; ausc limited to ant/lateral, diminished at bases, clear Card: tachycardic, regular rhythm GI: hypoactive but active in all quadrants; mild distention, soft, discomfort to light palpation Ext: trace pedal edema R>L; DP 2+ bilat Psych: nods at end of visit, engages briefly, returns to eyes closed, resting comfortably Results Last Vital Signs Pulse 91 H 04/26/25 11:48 Resp 16 04/26/25 11:48 BP 128/68 04/26/25 11:48 Pulse Ox 93 04/26/25 11:48 VTE Prohylaxis Risk Level: None Contraindications: None Prophylaxis: Patient ambulatory (does not require anticoagulation) Time Spent Time spent with Patient: 40-54 minutes Time was spent: preparing to see the patient(eg.review tests), obtaining and/or reviewing separately otained hiistory, ordering medications,tests, procedures, referring, communicating with other health home care and home health aides teacher, counseling the patient and care coordination
[2025-04-26 12:43] VITALS: RESP 18
--- NOTE | 2025-04-26 12:54 | W.PC.ACHO ---
Registration Status: ADM IN Primary Language: Preferred Language: Tamazight ED Information & Data Chief Complaint GenMedical 04/26/25 11:57 Chief Complaint GenMedical 04/26/25 11:45 Triage Note Pt came to ED by EMS for end 04/26/25 11:45 of life care. Pt was a hospice pt, family no longer able to care for pt. Medical / Surgical History (Last Reviewed 04/26/25 @ 12:19 by Krysten Jarquin NP) Kidney stone Calculus of left ureter Anxiety Thrombocytopenia Nuclear age-related cataract, left eye Ingrown nail Osteoporosis Insomnia Hematuria Right hip pain (03/27/17) Hypercholesterolemia Generalized osteoarthrosis Ingrowing toenail (04/14/14) Hematuria Fatigue Ingrown toenail Urinary tract infectious disease (Last Reviewed 04/26/25 @ 12:19 by Krysten Jarquin NP) Nuclear age-related cataract, right eye History of cataract surgery History of bladder repair surgery Status post laparoscopic hysterectomy H/O bladder repair surgery S/P laparoscopic hysterectomy Hysterectomy, Laproscopic (~1983) Bladder Surgery (~1999) Most Recent Vital Signs Pulse 91 H 04/26/25 11:48 Respiratory Rate 18 04/26/25 12:43 Respiratory Effort Normal, Non-Labored 04/26/25 12:43 Respiratory Depth Normal 04/26/25 12:43 Respiratory Pattern Normal 04/26/25 12:43 Blood Pressure 128/68 04/26/25 11:48 Pulse Oximetry 93 04/26/25 11:48 Allergies ibuprofen Adverse Reaction (Mild, Verified 04/26/25 11:54) Stomach cramps IV IV Catheter Type [Right Saline Lock Antecubital] IV Catheter Gauge [Right 18 Antecubital] Diet Orders Category Date Time Status Regular/Normal [DIET] Nutrition 04/26/25 Dinner Active Intake and Output - 24 Hour Total 04/26/25 11:35 thru 04/26/25 11:45 Weight 140 lb Falls Risk Assessment History of Falls Previous History 04/26/25 12:43 Contributing Factors Confusion,Unstable, 04/26/25 12:43 Impairments,Incontinence Ambulatory Aids Uses ambulatory device + 04/26/25 12:43 Tubes/Lines W/no contributing factors 04/26/25 12:43 Gait Evaluation W/any additional score 04/26/25 12:43 Cognition Cognitive impairment 04/26/25 12:43 Fall Total Score 102 04/26/25 12:43 Level of Risk Maximum Risk 04/26/25 12:43 Problems (Last Reviewed 04/26/25 @ 12:19 by Krysten Jarquin NP) Nausea (Acute) Admission for palliative care (Acute) Comfort measures only status (Acute) Confusion (Acute) Cancer related pain (Acute) Hospice care patient (Acute) 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 Additional Patient Information/Comments: Report Received From: Kaykay Fraga RN
[2025-04-26] MEDS: fentaNYL 12 MCG PATCH TD (13:31)
[2025-04-26] MEDS: fentaNYL 25 MCG PATCH TD (18:23)
[2025-04-26] MEDS: Scopolamine 1 MG/3 DAYS PATCH TD (18:23)
[2025-04-26] MEDS: Patch Removal 1 EACH TP (18:37)
[2025-04-26] MEDS: clonazePAM 0.5 MG TAB PO (20:39)
[2025-04-26] MEDS: Senna TAB PO (20:39)
[2025-04-26] MEDS: QUEtiapine 50 MG TAB PO (20:39)
[2025-04-26] MEDS: MORPHine Oral Solution 10 MG/5 ML CUP PO (20:40)
[2025-04-26] MEDS: Normal Saline Flush 10 ML SYR IVP (20:40)
[2025-04-27] MEDS: MORPHine 2 MG/ML SYR IVP ×3 (10:30→16:31)
[2025-04-27] MEDS: Normal Saline Flush 10 ML SYR IVP ×3 (13:30→20:42)
--- NOTE | 2025-04-27 14:48 | PHA.REVIEW2 ---
Pharmacy Admission Review Admission Clinical Review Admission Pharmacy Review: Nausea (Acute) Admission for palliative care (Acute) Comfort measures only status (Acute) Confusion (Acute) Cancer related pain (Acute) Hospice care patient (Acute) Adenocarcinoma of pancreas (Acute) ibuprofen Adverse Reaction (Mild, Verified 04/26/25 11:54) Stomach cramps Resuscitation Status DNR/DNI Weight 63.503 kg Comments Comments/Follow Ups: Hospice respite Pharmacy Admission Review Renal Dosing Medications needing adjustments: N/A (Hospice) Anticoagulation DVT Prophylaxis: N/A (Hospice) Opiate Usage Evaluate Pain Scale/Pains Meds: Reviewed (fentanyl 25mcg patch, morphine IVP q1h PRN - 8mg/24hrs, morphine oral solution q1h PRN - 10mg/24hrs) Scheduled Bowel Reg ordered if on Opiates?: Yes (Senna) Relevant Labs Electrolytes, C-Reactive P, ESR: N/A Cardiac Review BP, HR, EF%: N/A QTc Review QTc: Reviewed (425 from 02/26/25) IV to PO Switch IV Medications: Reviewed Home Meds Home Med List reviewed: Reviewed Current Meds Current Medication Order Review: Intervened Comments: Discontinued PRN scopolamine patch order - has scheduled order Comments Comments/Follow Ups: Hospice respite
[2025-04-27] MEDS: LORazepam 2 MG/ML VIAL IV/SC (16:22)
--- NOTE | 2025-04-27 16:46 | W.PM.PROGNOT ---
Date of Service Date of service: 04/27/25 Time of Service: 13:00 Assessment and Plan Assessment and plan (1) Hospice care patient: Status: Acute Assessment and plan: Tina will transition from hospice respite to SYMPTOM MANAGEMENT today. Anticipate she will remain hospitalized thru EOL, life expectancy suspected to be hours to days all oral medications d/c'd today continue IV management for pain, agitation and nausea (2) Cancer related pain: Status: Acute Assessment and plan: continue fentanyl 25mcg/hr patch continue morphine q1h PRN consider increase based on morphine use, pain controlled today (3) Nausea: Status: Acute Assessment and plan: no nausea reported today continue IV Zofran PRN, lorazepam and haldol PRN for breakthru (4) Confusion: Status: Acute Assessment and plan: IV Haldol PRN (5) Abdominal ascites: Status: Chronic Assessment and plan: hold surgical consult today consider if needed anticipate life expectancy limits benefit to further paracentesis (6) Comfort measures only status: Status: Acute (7) Advance care planning: Status: Acute Assessment and plan: reviewed w/family anticipated plan to remain in hospital thru EOL, not eligible for NH or returning home d/t requirement of IV medications at this time - will transition from respite to HOSPICE SYMPTOM MANAGEMENT reviewed life expectancy of hours to days reviewed EOL symptoms: apnea, urine output, reduced wakefulness reviewed paracentesis repeat considerations, shared decision to hold consult at this time spent 25m w/ACP Subjective Subjective Interval history since last seen: Tina remains hospitalized at [facility], initially for respite; present at bedside today: Vinay, sons Serjio and Jose Carlos, Serjio's Esther and their two children Tina has not been able to tolerate any oral intake, including medications today. She has required some IV pain medication. She is less responsive today. She is making less urine today. Exam Narrative Exam Narrative: General: older adult female lying in hospital bed; no grimace, groan or furrowed brow;eyes remained closed does not engage today HEENT: normocephalic, atraumatic, dry MM Resp: normal resp effort,no audible wheeze, no cough; ausc limited to ant/lateral, diminished at bases, clear Card: tachycardic, regular rhythm GI: hypoactive but active in all quadrants; mild distention, soft, discomfort to light palpation Ext: trace pedal edema R>L; DP 2+ bilat Psych: eyes closed, resting comfortably Objective Last Vital Signs Pulse 91 H 04/26/25 11:48 Resp 18 04/26/25 12:43 BP 128/68 04/26/25 11:48 Pulse Ox 93 04/26/25 11:48 VTE Prohylaxis Risk Level: None Contraindications: None Prophylaxis: Patient ambulatory (does not require anticoagulation) Time Spent with Patient Time Spent with Patient: 25-34 minutes Time was spent: preparing to see the patient(eg.review tests), obtaining and/or reviewing separately otained hiistory, ordering medications,tests, procedures, referring, communicating with other health healthcare associate, counseling the patient and care coordination
--- NOTE | 2025-04-27 18:38 | PDOC.CMPRO ---
Date of service: 04/27/25 Time of Service: 18:38 Care Management Progress Note Progress Note Text Progress Note Text: Tina was admitted for hospice respite yesterday. Today she was changed to comfort management and will remain at [facility] until end of life. Today Tina was surrounded by family. She has had some IVP morphine, and appears comfortable. Family has stated that her final arrangements have been discussed and agreed upon. Discharge Plan: Tina is now on comfort measures only. She will remain at [facility] until the end of her life. will continue to offer support. Social Determinants of Health Screening Will the Patient Participate in the Screening?: Declined to provide
[2025-04-28] MEDS: MORPHine 2 MG/ML SYR IVP ×4 (04:06→12:22)
[2025-04-28] MEDS: Normal Saline Flush 10 ML SYR IVP ×4 (04:08→12:22)
[2025-04-28] MEDS: LORazepam 2 MG/ML VIAL IV/SC ×4 (04:23→12:21)
--- NOTE | 2025-04-28 12:23 | CMPROGNOTE_ITS ---
Date of service: 04/28/25 Time of Service: 12:23 Care Management Progress Note Progress Note Text Progress Note Text: Tina appeared comfortable when CM went in to meet with her Raman and their son today. Raman feels that Tina is comfortable and is being well cared for. Tina had just had some medication, as she was appearing restless. CM encouraged Raman to notify the RN whenever Tina appears uncomfortable, or restless. He was reminded that the goal is comfort. Raman appeared saddened today. He was glad to have his son with him, and earlier in the day an old friend visited. Comfort cart was in the room and the men denied any needs at this time. Discharge Plan: Tina is on comfort measures only. She will remain at [facility] until the end of her life. CM will continue to offer support. Social Determinants of Health Screening Will the Patient Participate in the Screening?: Declined to provide
--- NOTE | 2025-04-28 13:01 | W.NUTRFU ---
Date of service: 04/28/25 Time of Service: 13:01 Nutrition Note NOTE: Chart reviewed. 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 Per nursing and kitchen staff not taking food or fluids at this time. Providing comfort cart to family as needed. No aggressive nutrition intervention planned at this time Time Spent in Nutritional Counseling and Treatment: 5 min
--- NOTE | 2025-04-28 14:00 | PGE_ITS ---
Date of Service Date of service: 04/28/25 Time of Service: 14:01 Assessment and Plan Assessment and plan (1) Hospice care patient: Status: Acute Assessment and plan: Tina is on hospice Sx management. She is minimally responsive. The plan is for her to remain in the hospital through the end of life. Her family is comfortable with this plan. She has fentanyl patch in place and she is requiring IV morphine doses and lorazepam. Family agrees to start morphine drip for more consistent pain control. Start at 1 mg/hr and titrate as needed. D/C fentanyl patch. Continue IV Lorazepam PRN. (2) Cancer related pain: Status: Acute Assessment and plan: As above. (3) Nausea: Status: Acute Assessment and plan: No reports of nausea or vomiting. NPO x3 days, no food prior to that. (4) Confusion: Status: Acute Assessment and plan: IV Haldol PRN (5) Abdominal ascites: Status: Chronic Assessment and plan: With abd pain, pain management as above. (6) Comfort measures only status: Status: Acute (7) Advance care planning: Status: Acute Assessment and plan: reviewed w/family anticipated plan to remain in hospital through EOL, not eligible for NH or returning home d/t requirement of IV medications at this time - currently on HOSPICE SYMPTOM MANAGEMENT Life expectancy is measured in hours to days Subjective Subjective Interval history since last seen: Tina was seen in her hospital room with her and son present. She was resting in bed with her eyes closed, she did not awaken during the visit. Her family feel she is comfortable. She has received 14 mg of morphine IV over the last 24 hrs. She also has fentanyl patch in place. She is requiring lorazepam PRN. She has not had anything by mouth for 3 days. Reviewed the option of starting a morphine drip with her family and they agree. Exam Narrative Exam Narrative: General: older adult female lying in hospital bed; no grimace, groan or furrowed brow;eyes remained closed, she did not awaken during the visit. HEENT: normocephalic, atraumatic, MM dry. Resp: respirations appear even and unlabored. GI: appears distended Objective Last Vital Signs Pulse 91 H 04/26/25 11:48 Resp 18 04/26/25 12:43 BP 128/68 04/26/25 11:48 Pulse Ox 93 04/26/25 11:48 VTE Prohylaxis Risk Level: None Contraindications: None Prophylaxis: Patient ambulatory (does not require anticoagulation) Time Spent with Patient Time Spent with Patient: >50 minutes Time was spent: preparing to see the patient(eg.review tests), obtaining and/or reviewing separately otained hiistory, ordering medications,tests, procedures, referring, communicating with other health palliative care specialist, counseling the patient and care coordination
--- NOTE | 2025-04-28 14:35 | CHAPLAIN ---
Tina is here on comfort measures for symptom management and end of life care. She is a hospice patient. She is minimally responsive today according to family. Tina was here about a week ago, and went home with hospice support. Her , two sons and a family friend have been visiting with her today. Several family members visited yesterday. Family members seem very supportive of Tina and each other. When I sat with her this morning before family arrived, Shara acknowledged I was there with a quiet response to my greeting, then said she wanted to sleep. I will continue to visit.
[2025-04-28] MEDS: MORPHine 250 MG in Normal Saline 245 ML IV_INF (14:52)
[2025-04-28] MEDS: Patch Removal 1 EACH TD (15:46)
[2025-04-29] MEDS: Normal Saline Flush 10 ML SYR IVP ×3 (10:22→14:50)
--- NOTE | 2025-04-29 12:22 | PGE_ITS ---
Date of Service Date of service: 04/29/25 Time of Service: 12:23 Assessment and Plan Assessment and plan (1) Hospice care patient: Status: Acute Assessment and plan: Tina is on hospice Sx management. She is minimally responsive. She does not appear to be comfortable at this time. The plan is for her to remain in the hospital through the end of life. She is unresponsive and requires IV medication to maintain her comfort. Her family is comfortable with this plan. She is on morphine drip at 1 mg/hr. Increase morphine, continue IV Lorazepam PRN. (2) Cancer related pain: Status: Acute Assessment and plan: As above. (3) Nausea: Status: Acute Assessment and plan: No reports of nausea or vomiting. NPO x4 days, no food prior to that. (4) Confusion: Status: Acute Assessment and plan: She is minimally responsive. IV Haldol PRN (5) Abdominal ascites: Status: Chronic Assessment and plan: With abd pain, pain management as above. (6) Comfort measures only status: Status: Acute (7) Advance care planning: Status: Acute Assessment and plan: reviewed w/family anticipated plan to remain in hospital through EOL, not eligible for NH or returning home d/t requirement of IV medications at this time - currently on HOSPICE SYMPTOM MANAGEMENT Life expectancy is measured in hours to days (8) Restlessness: Status: Acute Assessment and plan: She does not appear to be relaxed/comfortable. Increase morphine as above, continue PRN lorazepam. Subjective Subjective Interval history since last seen: Tina was seen in her hospital room with her present. She has morphine IV drip running at 1 mg/hr. She appears restless and tense. Her arms are clenched over her chest. She does not appear to be comfortable. Reviewed with nursing. She has not had anything by mouth for 4 days. She is bed bound and minimally responsive. Exam Narrative Exam Narrative: General: older adult female lying in hospital bed; her brows appear furrowed. She appears restless and does not appear relaxed. Her eyes remained closed, she did not awaken during the visit. HEENT: normocephalic, atraumatic, MM dry. Resp: respirations appear even and unlabored. GI: appears distended Objective Last Vital Signs Pulse 91 H 04/26/25 11:48 Resp 18 04/26/25 12:43 BP 128/68 12/21/25 11:48 Pulse Ox 93 04/26/25 11:48 VTE Prohylaxis Risk Level: None Contraindications: None Prophylaxis: Patient ambulatory (does not require anticoagulation) Time Spent with Patient Time Spent with Patient: >50 minutes Time was spent: preparing to see the patient(eg.review tests), obtaining and/or reviewing separately otained hiistory, referring, communicating with other health associate director career services, counseling the patient and care coordination
[2025-04-29] MEDS: LORazepam 2 MG/ML VIAL IV/SC ×2 (13:24→14:50)
--- NOTE | 2025-04-29 13:43 | CHAPLAIN ---
Tina is here for end of life care. Rosalinda Leigh NP, from Hospice visited today. Tina seemed restless when I saw her this morning, and was uncovering herself, taking off her sheets and jazmine. I put more batteries in her fan and directed that at her in case that would help. Tina's is here now and he expects their son from [place] to arrive soon. They have been for 59 years and dated for six years before that. It's been a 65 year investment, he said. I will continue to visit.
[2025-04-29] MEDS: Scopolamine 1 MG/3 DAYS PATCH TD (13:52)
--- NOTE | 2025-04-29 15:42 | PDOC.CMPRO ---
Date of service: 04/29/25 Time of Service: 15:42 Care Management Progress Note Progress Note Text Progress Note Text: Tina appears comfortable. She is on a morphine drip, which was titrated up this afternoon after family felt that Tina was becoming a little restless. Raman and a son were visiting. Both stated that they are pleased with the care that Tina is receiving. Family has decided on the crematorium in [place], [place] for her arrangements. Discharge Plan: Tina is on comfort measures only. She will remain at [facility] until the end of her life. will continue to offer support. Social Determinants of Health Screening Will the Patient Participate in the Screening?: Declined to provide
[2025-04-30] MEDS: LORazepam 2 MG/ML VIAL IV/SC (02:13)
--- NOTE | 2025-04-30 04:17 | NUR.NOTE ---
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 Passed pacefully at this time. Charge Nurse Henny notified. Nurse research dairy farm supervisor Martha Juarez informed as well. [id number].- Raman Juarez was called and made aware of patient passing. Per he will not come at this time neither other members of the family. He said he will be here early this morning to burr picker patient's belongings. He asked to keep them here in the unit. 2720.- [facility] notified. Patient was declined. Case # [id number]. [id number].- Body transferred to the [facility] [place]. Rosalinda Grullon NP Hospice Notified.
--- NOTE | 2025-04-30 19:37 | EXPE_ITS ---
Date of service: 04/30/25 Time of Service: 03:15 Discharge Plan Disposition Patient Disposition: Discharge Details Reason For Visit: Pancreatic Cancer Admit Date/Time: 04/26/25 12:07 Admit Provider: Suzy Gentile Attending Provider: Suzy Gentile Primary Care Provider: Isabel Weldonyce [facility] Hospital Course: Tina is an 80 year old female who was on hospice for pancreatic cancer. Her family was caring for her at home but when things became more difficult. She had agitation, refusal of medications, limited PO intake. Her elderly also had a fall. She was brought in to [facility] for hospice symptom management, however, her pain, agitation and restless were not controlled and she was unable to take medication orally so she transitioned to hospice Sx management. She required IV medications for pain and agitation, eventually switching to an IV morphine drip. The decision was made for her to remain on Sx management due to requiring IV medications. She peacefully at 0310 this morning and was pronounced at 0315. Discharge Data Cause of : Pancreatic adenoma Discharge Date/Time-TO BE ENTERED AT DEPARTURE: 04/30/25 04:15 Discharge Sum: Prov Provider Consults: 04/26/25 12:11 Dining Services Manager Consult [CONS] Routine Consultation Status:: Follow-up needed Clarification:: Manage/follow per spec. Reason for consult:: Tina is being admitted for hospice respite. /caregiver fell at home and unable to safely provide care. respite while finding new/safer plan Discharge Sum: Diag PCOD Cause of : Pancreatic adenoma Contributing Factors (1) Hospice care patient: (2) Cancer related pain: (3) Nausea: (4) Confusion: (5) Abdominal ascites: (6) Comfort measures only status: (7) Advance care planning: (8) Restlessness:
== END 2025-04-30 04:15 | disposition expired | DRG 436 ==
LOC: ER 12:31 → MS 04-27 08:54
PROVIDERS: Admitting Provider Family Medicine; Emergency Provider Emergency Medicine; PCP Family Medicine; Visit Provider Family Medicine
DX: C25.9 Malignant neoplasm of pancreas, unspecified (principal); C77.2 Secondary and unspecified malignant neoplasm of intra-abdominal lymph nodes; R18.0 Malignant ascites; R17 Unspecified jaundice; Z75.5 Holiday relief care; Z51.5 Encounter for palliative care; R41.0 Disorientation, unspecified; G89.3 Neoplasm related pain (acute) (chronic); R11.0 Nausea; R45.1 Restlessness and agitation; E11.44 Type 2 diabetes mellitus with diabetic amyotrophy; E11.40 Type 2 diabetes mellitus with diabetic neuropathy, unspecified; I10 Essential (primary) hypertension; M21.372 Foot drop, left foot; D73.5 Infarction of spleen; K57.30 Diverticulosis of large intestine without perforation or abscess without bleeding; N32.81 Overactive bladder; R29.6 Repeated falls; D64.9 Anemia, unspecified
CPT/HCPCS: 00123; J2060; J2270; J2405; J3490